=== PATIENT | male | born 1960 | race Two or more races ===

== ENCOUNTER 2020-02-27 03:10 | Inpatient (IN) | payer MEDICARE ==
[2020-02-27] VITALS (25 sets, daily range): BP systolic 84–164; BP diastolic 31–142
[~2020-02-27] VITALS: Ht 165.1 cm; Wt 68.0 kg
--- NOTE | 2020-02-27 03:25 | Emergency Room Report ---
History of Present Illness General Chief Complaint: Dyspnea/Respdistress Source: Medical Record, EMS Present Illness HPI Patient is a 59-year-old male brought in by EMS for increased respiratory distress and difficulty with breathing. Prior history of G-tube dependence as well as recent sepsis. Patient was noted to have fever up to 104 degrees and diminished oxygen saturation at his facility. Patient was sent in from [facility]. He had been started on nonrebreather by paramedics. Previous history of psychiatric disease and had been taking Depakote. Currently on antibiotics. Allergies: Coded Allergies: DIPHENHYDRAMINE (Verified Allergy, Unknown, 02/27/20) COVID-19 Screening Contact w/high risk pt: Yes Recent Travel to affected area: No Experienced COVID-19 symptoms?: Yes COVID-19 symptoms experienced: Fever (T>100.4F or >38C), Shortness of Breath, Cough COVID-19 Testing performed ASSISTANT PROFESSOR OF GERMAN: No Patient History Past Medical History: see triage record Reviewed Nursing Documentation: PMH: Agreed; PSxH: Agreed Nursing Documentation-PMH Past Medical History: No History, Except For History Of Psychiatric Problem: Yes Review of Systems All Other Systems: limited - Limited by poor historian Physical Exam Vital Signs Date Time Temp Pulse Resp B/P (MAP) Pulse Ox O2 Delivery O2 Flow Rate FiO2 02/27/20 03:12 104.0 160 30 89/41 (57) 85 Room Air Sp02 EP Interpretation: reviewed, normal General Appearance: alert, moderate distress, Chronically Ill Head: atraumatic ENT: normal ENT inspection, dry mucus membranes Neck: normal inspection, supple, no bony tend, limited range of motion Respiratory: normal inspection, no respiratory distress, no retraction, crackles Cardiovascular #1: no edema, tachycardia Gastrointestinal: normal inspection, normal bowel sounds, non tender, soft, no guarding, no hernia, other - gtube Genitourinary: no CVA tenderness Musculoskeletal: normal inspection, back normal, normal range of motion Neurologic: alert, 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 Total critical care time excluding procedures approximately 45 minutes. Medical Decision Making Diagnostic Impression: Primary Impression: Suspected 2019 novel coronavirus infection Additional Impressions: Pneumonia Elevated d-dimer Severe sepsis Hematuria Attention to G-tube ER Course Presented for respiratory distress. Differential diagnosis include was not limited to sepsis, pneumonia, supraventricular tachycardia, myocardial infarction among others. Because of complexity of patient's case laboratory tests and imaging studies were ordered. Patient was seen by me on arrival. He was started on supplemental oxygen. Temperature was noted to be elevated at 104 degrees initially. Tachycardia 170 bpm. Appears to be sinus tachycardia. EKG was ordered and patient was started on IV fluids as well as IV antibiotics. Patient's initial oxygen saturation was noted to be diminished however . Patient was somewhat hypoxic however oxygen saturation remained adequate on nonrebreather. Patient d-dimer is markedly elevated and patient will be empirically anticoagulated due to possible coronavirus infection.Patient was given Ativan for some anxiousness. Patient's tachycardia had some improvement after IV fluids.Patient had initial hypotension which responded to IV fluids and patient was noted to be normotensive after fluid bolus. Patient's initial troponin was noted to be slightly elevated with patient's tachycardia. Dr. Marky Go was contacted for inpatient management Labs Test 02/27/20 03:18 02/27/20 03:55 Arterial Blood pH 7.324 (7.350-7.450) Arterial Blood Partial Pressure CO2 36.5 mmHg (35.0-45.0) Arterial Blood Partial Pressure O2 154.9 mmHg (75.0-100.0) Arterial Blood HCO3 18.6 mmol/L (22.0-26.0) Arterial Blood Oxygen Saturation 98.3 % (95-100) Arterial Blood Base Excess -6.8 (-2-2) Nicolas Test Positive White Blood Count 6.1 K/UL (4.8-10.8) Red Blood Count 4.12 M/UL (4.70-6.10) Hemoglobin 13.1 G/DL (14.2-18.0) Hematocrit 37.9 % (42.0-52.0) Mean Corpuscular Volume 92 FL (80-99) Mean Corpuscular Hemoglobin 31.9 PG (27.0-31.0) Mean Corpuscular Hemoglobin Concent 34.7 G/DL (32.0-36.0) Red Cell Distribution Width 11.6 % (11.6-14.8) Platelet Count 221 K/UL (150-450) Mean Platelet Volume 7.5 FL (6.5-10.1) Neutrophils (%) (Auto) 62.3 % (45.0-75.0) Lymphocytes (%) (Auto) 24.5 % (20.0-45.0) Monocytes (%) (Auto) 12.0 % (1.0-10.0) Eosinophils (%) (Auto) 0.1 % (0.0-3.0) Basophils (%) (Auto) 1.1 % (0.0-2.0) D-Dimer 9.14 mg/L FEU (0.00-0.49) Urine Color Pale yellow Urine Appearance Clear Urine pH 6.5 (4.5-8.0) Urine Specific [place] 1.015 (1.005-1.035) Urine Protein 2+ (NEGATIVE) Urine Glucose (UA) Negative (NEGATIVE) Urine Ketones 1+ (NEGATIVE) Urine Blood 4+ (NEGATIVE) Urine Nitrite Negative (NEGATIVE) Urine Bilirubin Negative (NEGATIVE) Urine Urobilinogen Normal MG/DL (0.0-1.0) Urine Leukocyte Esterase Negative (NEGATIVE) Urine RBC Tntc /HPF (0 - 0) Urine WBC 0-2 /HPF (0 - 0) Urine Squamous Epithelial Cells None /LPF (NONE/OCC) Urine Bacteria Few /HPF (NONE) Sodium Level 142 MMOL/L (136-145) Potassium Level 4.0 MMOL/L (3.5-5.1) Chloride Level 105 MMOL/L (98-107) Carbon Dioxide Level 24 MMOL/L (21-32) Anion Gap 13 mmol/L (5-15) Blood Urea Nitrogen 12 mg/dL (7-18) Creatinine 1.2 MG/DL (0.55-1.30) Estimat Glomerular Filtration Rate > 60 mL/min (>60) Glucose Level 117 MG/DL (74-106) Lactic Acid Level 5.70 mmol/L (0.4-2.0) Calcium Level 8.6 MG/DL (8.5-10.1) Total Bilirubin 0.3 MG/DL (0.2-1.0) Aspartate Amino Transf (AST/SGOT) 16 U/L (15-37) Alanine Aminotransferase (ALT/SGPT) 36 U/L (12-78) Alkaline Phosphatase 82 U/L (46-116) Total Creatine Kinase 44 U/L (26-308) Creatine Kinase MB 0.5 NG/ML (0.0-3.6) Creatine Kinase MB Relative Index 1.1 Troponin I 0.227 ng/mL (0.000-0.056) Pro-B-Type Natriuretic Peptide 321 pg/mL (0-125) Total Protein 6.7 G/DL (6.4-8.2) Albumin 2.6 G/DL (3.4-5.0) Globulin 4.1 g/dL Albumin/Globulin Ratio 0.6 (1.0-2.7) EKG Diagnostic Results Rate: tachycardiac Rhythm: NSR ST Segments: no acute changes Last Vital Signs Date Time Temp Pulse Resp B/P (MAP) Pulse Ox O2 Delivery O2 Flow Rate FiO2 02/27/20 03:12 104.0 160 30 89/41 (57) 85 Room Air Status: unchanged Disposition: ADMITTED INPATIENT Condition: Critical Edgardo Nevarez MD February 27, 2020 03:25
--- NOTE | 2020-02-27 03:28 | NUR ---
Spoke with Judith at [facility] regarding testing for Covid19, Judith will review the chart and call me back.
[2020-02-27] MEDS ORDERED: Cefepime HCl 2 GM in NS 110 ML IV ONE (03:30)
[2020-02-27] MEDS ORDERED: Vancomycin 1 GM in NS 275 ML IV ONE (03:30)
[2020-02-27] MEDS ORDERED: Acetaminophen 650mg/20.3ml GT ONE (03:30)
--- NOTE | 2020-02-27 03:30 | NUR ---
ED Nurse Note: Pt brought into ED by TERESA SIMON 29 for c/o fever, respiratory distress, and decreased altered mental status from [facility]. Pt is awake, opening eyes and nonverbal at this time. Pt oxygen saturation was 80s. Pt placed on non- breather mask 15L, saturation is now 93%. Pt presents in the ED tachycardia and has agonal breathing. G-tube is located on lower abs, mcgee changed due to leakage. Pressure ulcer on sacrum and redness on uopeer inner thigh noted and picures were taken. Pt presented BM. Attached quality assurance monitor. ERMD at bedside. All safety masures are met: side rails up, the bed is the lowerst position. Continue to monitor.
[2020-02-27] MEDS ORDERED: FOLIC ACID1 MG GT (03:45)
[2020-02-27] MEDS ORDERED: LEVETIRACETAM750 MG GT (03:45)
[2020-02-27] MEDS ORDERED: ASPIRIN81 MG GT (03:48)
[2020-02-27] MEDS ORDERED: ATIVAN1 MG GT (03:49)
--- NOTE | 2020-02-27 03:55 | NUR ---
ED Nurse Note: mcgee noted; inserted prior to arrival; intact and patent. left upper arm picc noted; established prior to arrival. iv access established on left ej 18g. blood, initial lactic, blood cultures, urine, mrsa vre cre swab collected; sent down to lab. unable to collect covid swab; unavailable stock. ekg done at bedside.
[2020-02-27] MEDS ORDERED: TRAMADOL HCL50 MG GT (04:02)
[2020-02-27] MEDS ORDERED: VALPROIC A250 MG/5 M GT (04:02)
[2020-02-27] MEDS ORDERED: MULTIVITAMINS1 EAC8 GT (04:02)
[2020-02-27] MEDS ORDERED: VITAMIN B-1100 MG GT (04:02)
[2020-02-27] MEDS ORDERED: RISPERDAL0.5 MG GT (04:02)
[2020-02-27] MEDS ORDERED: VANCOMYCIN HCL125 MG GT (04:02)
[2020-02-27] MEDS ORDERED: ACETAMINOPHEN325 M1 GT ×2 (04:02)
[2020-02-27] MEDS ORDERED: PRO-AMATINE10 MG GT (04:02)
[2020-02-27] MEDS ORDERED: VITAMIN C500 M1 GT (04:02)
[2020-02-27] MEDS ORDERED: ZOSYN 3.373.375 GM/1 IVPB (04:07)
[2020-02-27] MEDS ORDERED: ZOLPIDEM TARTRAT5 MG GT (04:07)
[2020-02-27] MEDS ORDERED: ZINC-220220 MG GT (04:07)
[2020-02-27 04:11] LABS: BASOPHILS % (AUTO) 1.1 % (0.0-2.0); EOSINOPHILS % (AUTO) 0.1 % (0.0-3.0); HEMATOCRIT 37.9 % (42.0-52.0); HEMOGLOBIN 13.1 G/DL (14.2-18.0); LYMPHOCYTES % (AUTO) 24.5 % (20.0-45.0); MEAN CORPUSCULAR VOLUME 92 FL (80-99); NEUTROPHILS % (AUTO) 62.3 % (45.0-75.0); PLATELET COUNT 221 K/UL (150-450); RED BLOOD COUNT 4.12 M/UL (4.70-6.10); RED CELL DISTRIBUTION WIDTH 11.6 % (11.6-14.8); WHITE BLOOD COUNT 6.1 K/UL (4.8-10.8)
[2020-02-27] MEDS ORDERED: JEVITY 1.2 CA1500 ML PO (04:11)
[2020-02-27] MEDS ORDERED: LORazepam Inj 2mg/ml 1ml ONE (04:20)
--- NOTE | 2020-02-27 04:20 | NUR ---
ED Nurse Note: received patient from mitali chaudhary. patient in bed; opens eyes spontaneously; tracks movements; withdraws to pain; lacks purposeful movement. sinus tach at 140's. respirations tachypneic 30's; agonal breathing. NRB 15lpm in place with spo2 100's. GT noted; flushed and patent. mcgee intact and patent; draining well to gravity. right upper arm picc noted; intact and patent; fluids infusing as prescribed. left ej 18 intact and patent; free from signs and symptoms of infection; vanco infusing as prescribed. sacral and scrotal redness noted. wound care photos taken and uploaded. RT at bedside for abg. COVID swab collected; sent down to lab. attached armband. droplet precautions observed. all safety measures met; side rails raised; bed locked at lowest position. will continue to monitor closely.
[2020-02-27] MEDS ORDERED: LORazepam Inj 2mg/ml 1ml IV ONE (04:30)
[2020-02-27 04:31] LABS: APPEARANCE,URINE CLEAR; BILIRUBIN, URINE NEGATIVE (NEGATIVE); COLOR,URINE PALE YELLOW; GLUCOSE, URINE (UA) NEGATIVE (NEGATIVE); KETONES,URINE 1+ (NEGATIVE); LEUKOCYTE ESTERASE ,URINE NEGATIVE (NEGATIVE); NITRITE,URINE NEGATIVE (NEGATIVE); PH,URINE 6.5 (4.5-8.0); PROTEIN,URINE 2+ (NEGATIVE); UROBILINOGEN,URINE NORMAL MG/DL (0.0-1.0)
[2020-02-27 04:39] LABS: ANION GAP 13 mmol/L (5-15); BLOOD UREA NITROGEN 12 mg/dL (7-18); CALCIUM 8.6 MG/DL (8.5-10.1); CARBON DIOXIDE 24 MMOL/L (21-32); CHLORIDE 105 MMOL/L (98-107); CREATININE 1.2 MG/DL (0.55-1.30); SODIUM 142 MMOL/L (136-145)
[2020-02-27 04:51] LABS: ALANINE AMINOTRANSFERASE 36 U/L (12-78); ALBUMIN 2.6 G/DL (3.4-5.0); ALBUMIN/GLOBULIN RATIO 0.6 (1.0-2.7); ALKALINE PHOSPHATASE 82 U/L (46-116); ASPARTATE AMINO TRANSFERASE 16 U/L (15-37); BILIRUBIN,TOTAL 0.3 MG/DL (0.2-1.0); CKMB 0.5 NG/ML (0.0-3.6); CREATINE KINASE 44 U/L (26-308)
[2020-02-27] MEDS ORDERED: Enoxaparin 80mg Inj SUBQ SCH ×2 (05:00→21:00)
--- NOTE | 2020-02-27 05:35 | NUR ---
TRANSFER TO FLOOR: Patient transferred to ICU 246-L as ordered, per MD Donavan. Report given to ASAD Justin. Pt was stable for transfer acompanied with 1 tech and 2 RNs. Droplet trasport precaution observed. Pt's belongings and admission packet were sent with pt.
--- NOTE | 2020-02-27 06:00 | NUR ---
NURSE NOTES: received patient from mitali chaudhary. patient in bed; opens eyes spontaneously; tracks movements; withdraws to pain; lacks purposeful movement. sinus tach at 140's. respirations tachypneic 30's; NRB 15lpm in place with spo2 100's. GT noted; flushed and patent. mcgee intact and patent came in with mcgee from [facility], changed Mcgee in ER.; draining well to gravity. right upper arm picc noted from [facility]; intact and patent; NS TKO left ej 18 intact and patent NS TKO; free from signs and symptoms of infection; vanco infusing as prescribed. sacral and scrotal redness noted. wound care photos taken and uploaded. . COVID swab collected in ER; sent down to lab. attached armband. droplet precautions observed. all safety measures met; side rails raised; bed locked at lowest position. will continue to monitor closely.
[2020-02-27] MEDS ORDERED: Midodrine 10mg tab ORAL PRN (06:30)
--- NOTE | 2020-02-27 06:30 | NUR ---
NURSE NOTES: Admission ordered received from Dr. Go
--- NOTE | 2020-02-27 06:40 | NUR ---
NURSE NOTES: Wound care assessment performed.
--- NOTE | 2020-02-27 06:50 | NUR ---
NURSE NOTES: RT at bedside performing ABG. Patient on Non-rebreather
--- NOTE | 2020-02-27 07:00 | NUR ---
NURSE NOTES: Report received from ASAD Justin. Pt opens eyes and moans to pain. Unable to follow commands and to talk. On non-rebreather 100%. O2 sat 100%. Breathing is deep and tachy. Sinus tachy on fish cleaner. GT in place and kept NPO as per order. Vargas in place draining to gravity. FARIDEH PICC patent and asymptomatic. Left EJ G18 patent and asymptomatic. Pt is on D5 1/2NS at 75cc/hr. Bed in lowest position. Side rails up x3. Will resume plan of care.
[2020-02-27] MEDS ORDERED: Albuterol/Ipratropium 3ml neb HHN PRN (08:00)
[2020-02-27] MEDS ORDERED: Miralax 17gm pkt ORAL PRN (08:00)
[2020-02-27] MEDS ORDERED: Promethazine/Codeine 5ml UD ORAL PRN (08:00)
[2020-02-27] MEDS ORDERED: Nitroglycerin Subl 0.4mg tab SL PRN (08:00)
[2020-02-27] MEDS ORDERED: D5 1/2NS 1,000 ML IV ONE (08:00)
[2020-02-27] MEDS ORDERED: Ascorbic Acid 500mg tab ORAL SCH (09:00)
[2020-02-27] MEDS ORDERED: Vitamin D 1000 IU Tab ORAL SCH (09:00)
[2020-02-27] MEDS ORDERED: Aspirin Baby 81mg NG SCH (09:00)
[2020-02-27] MEDS ORDERED: Zinc Sulfate 220mg cap ORAL SCH (09:00)
[2020-02-27] MEDS ORDERED: Thiamine 100mg tab ORAL SCH (09:00)
--- NOTE | 2020-02-27 09:00 | NUR ---
NURSE NOTES: Temp 99.4 axillary. Turned and repositioned pt. Oral care done. Wound picture taken and uploaded. Will continue to monitor.
[2020-02-27] MEDS: Azithromycin 500 MG in D5W 275 ML IV SCH (09:01)
[2020-02-27] MEDS: Valproic Acid 250mg/5ml Liquid NG SCH ×2 (09:02→17:38)
[2020-02-27] MEDS: levETIRAcetam 500mg/5ml Liquid NG SCH ×2 (09:02→21:00)
[2020-02-27] MEDS: Enoxaparin 40mg Inj SUBQ SCH (11:04)
--- NOTE | 2020-02-27 11:39 | Consultation ---
History of Present Illness General Date patient seen: February 27, 2020 Chief Complaint: Dyspnea/Respdistress Present Illness HPI 59 year old make with hx of muscle weakness and atrophy, not characterized, residential resident, Gtube feeding brought in by paramedics b/o acute onset of dyspnea and fever. Pt's temperature was 104 in ER. He was put on NRM with Fio2 of 100%, which led to improvement in pulse oximeter. Pt is transferred to ICU for further treatment. Pt is unresponsive. [place] [facility] [place] no other information is available. He was recently transferred from [facility] to [facility] Allergies: Coded Allergies: DIPHENHYDRAMINE (Verified Allergy, Unknown, 02/27/20) Medication History Scheduled Ascorbic Acid* (Vitamin C*), 1,000 MG GT DAILY, (Reported) Aspirin* (Aspirin*), 81 MG GT DAILY, (Reported) Folic Acid* (Folic Acid*), 1 MG GT DAILY, (Reported) Lactose-Reduced Food/Fiber (Jevity 1.2 Memo Liquid), 1,500 ML PO BID, (Reported) Levetiracetam (Levetiracetam), 750 MG GT TWICE A DAY, (Reported) Lorazepam* (Ativan*), 1 MG GT Q6HR, (Reported) Midodrine (Midodrine HCl), 10 MG GT Q8HR, (Reported) Multivitamin With Minerals (Multivitamins With Minerals*), 1 TAB GT DAILY, ( Reported) Jrbltfnseimj-Abwx-Sslneqtw,Iso (Zosyn 3.375 Gm Pre Mix-Bag), 3.375 GM IVPB EVERY 8 HOURS, (Reported) Risperidone* (Risperdal*), 0.5 MG GT DAILY, (Reported) Thiamine Hcl* (Vitamin B-1*), 100 MG GT Q12HR, (Reported) Valproate Sodium (Valproic Acid), 250 MG GT Q6HR, (Reported) Vancomycin Hcl (Vancomycin Hcl), 1,000 MG GT Q12HR, (Reported) Zinc Sulfate (Zinc-220*), 220 MG GT DAILY, (Reported) Scheduled PRN Acetaminophen* (Acetaminophen 325MG Tablet*), 325 MG GT Q8HR PRN for For Pain, ( Reported) Acetaminophen* (Acetaminophen 325MG Tablet*), 650 MG GT Q4HR PRN for TEMP > 100.4nte 3gm IN 24HRS, (Reported) Tramadol Hcl* (Ultram*), 50 MG GT Q8HR PRN for For Pain, (Reported) Zolpidem Tartrate* (Zolpidem Tartrate*), 5 MG GT BEDTIME PRN for Insomnia, ( Reported) Patient History Healthcare decision maker Resuscitation status Advanced Directive on File Past Medical/Surgical History Past Medical/Surgical History: (1) Attention to G-tube (2) Muscle wasting and atrophy, not elsewhere classified, multiple sites (3) long term resident Review of Systems All Other Systems: negative except mentioned in HPI Physical Exam General Appearance: WD/WN Lines, tubes and drains: peripheral HEENT: normocephalic, atraumatic Neck: non-tender, normal alignment Respiratory/Chest: rhonchi - left, rhonchi - right Cardiovascular/Chest: normal peripheral pulses, normal rate Abdomen: normal bowel sounds, feeding tube Genitourinary/Rectal: normal genital exam Extremities: normal range of motion, non-tender Last 24 Hour Vital Signs Date Time Temp Pulse Resp B/P (MAP) Pulse Ox O2 Delivery O2 Flow Rate FiO2 02/27/20 11:00 131 30 103/60 (74) 100 02/27/20 10:00 130 37 115/69 (84) 100 02/27/20 09:00 136 34 89/62 (71) 100 02/27/20 08:00 99.4 135 28 88/69 (75) 99 02/27/20 08:00 15.0 02/27/20 08:00 Non-Rebreather 15.0 02/27/20 07:00 136 30 84/47 (59) 100 02/27/20 06:55 100 Non-Rebreather 15.0 100 02/27/20 06:06 Non-Rebreather 15.0 02/27/20 06:00 100.0 150 32 164/142 (149) 93 02/27/20 06:00 143 02/27/20 05:35 99.4 133 27 121/50 98 Non-Rebreather 15.0 02/27/20 05:00 99.4 133 27 121/50 98 Non-Rebreather 15.0 02/27/20 04:30 131 31 121/50 98 Non-Rebreather 15.0 02/27/20 04:02 99.9 02/27/20 04:00 141 31 113/71 98 Non-Rebreather 15.0 02/27/20 03:15 160 31 Non-Rebreather 15.0 02/27/20 03:15 102.7 158 31 137/81 99 Non-Rebreather 15.0 02/27/20 03:12 104.0 160 30 89/41 (57) 85 Room Air Intake and Output 02/26/20 02/27/20 19:00 07:00 Intake Total 0 ml Output Total 80 ml Balance -80 ml Intake Oral 0 ml Output Urine Total 80 ml # Bowel Movements 1 Laboratory Tests Test 02/27/20 03:18 02/27/20 03:55 02/27/20 05:20 02/27/20 06:33 Arterial Blood pH 7.324 (7.350-7.450) 7.349 (7.350-7.450) Arterial Blood Partial Pressure CO2 36.5 mmHg (35.0-45.0) 35.9 mmHg (35.0-45.0) Arterial Blood Partial Pressure O2 154.9 mmHg (75.0-100.0) H 58.0 mmHg (75.0-100.0) L Arterial Blood HCO3 18.6 mmol/L (22.0-26.0) L 19.3 mmol/L (22.0-26.0) L Arterial Blood Oxygen Saturation 98.3 % (95-100) 87.4 % (95-100) *L Arterial Blood Base Excess -6.8 (-2-2) L -5.6 (-2-2) L Nicolas Test Positive Positive White Blood Count 6.1 K/UL (4.8-10.8) Red Blood Count 4.12 M/UL (4.70-6.10) L Hemoglobin 13.1 G/DL (14.2-18.0) L Hematocrit 37.9 % (42.0-52.0) L Mean Corpuscular Volume 92 FL (80-99) Mean Corpuscular Hemoglobin 31.9 PG (27.0-31.0) H Mean Corpuscular Hemoglobin Concent 34.7 G/DL (32.0-36.0) Red Cell Distribution Width 11.6 % (11.6-14.8) Platelet Count 221 K/UL (150-450) Mean Platelet Volume 7.5 FL (6.5-10.1) Neutrophils (%) (Auto) 62.3 % (45.0-75.0) Lymphocytes (%) (Auto) 24.5 % (20.0-45.0) Monocytes (%) (Auto) 12.0 % (1.0-10.0) H Eosinophils (%) (Auto) 0.1 % (0.0-3.0) Basophils (%) (Auto) 1.1 % (0.0-2.0) D-Dimer 9.14 mg/L FEU (0.00-0.49) H Urine Color Pale yellow Urine Appearance Clear Urine pH 6.5 (4.5-8.0) Urine Specific [place] 1.015 (1.005-1.035) Urine Protein 2+ (NEGATIVE) H Urine Glucose (UA) Negative (NEGATIVE) Urine Ketones 1+ (NEGATIVE) H Urine Blood 4+ (NEGATIVE) H Urine Nitrite Negative (NEGATIVE) Urine Bilirubin Negative (NEGATIVE) Urine Urobilinogen Normal MG/DL (0.0-1.0) Urine Leukocyte Esterase Negative (NEGATIVE) Urine RBC Tntc /HPF (0 - 0) H Urine WBC 0-2 /HPF (0 - 0) Urine Squamous Epithelial Cells None /LPF (NONE/OCC) Urine Bacteria Few /HPF (NONE) Sodium Level 142 MMOL/L (136-145) Potassium Level 4.0 MMOL/L (3.5-5.1) Chloride Level 105 MMOL/L (98-107) Carbon Dioxide Level 24 MMOL/L (21-32) Anion Gap 13 mmol/L (5-15) Blood Urea Nitrogen 12 mg/dL (7-18) Creatinine 1.2 MG/DL (0.55-1.30) Estimat Glomerular Filtration Rate > 60 mL/min (>60) Glucose Level 117 MG/DL (74-106) H Lactic Acid Level 5.70 mmol/L (0.4-2.0) H 2.70 mmol/L (0.66-2.22) H Calcium Level 8.6 MG/DL (8.5-10.1) Ferritin 295 NG/ML (8-388) Total Bilirubin 0.3 MG/DL (0.2-1.0) Aspartate Amino Transf (AST/SGOT) 16 U/L (15-37) Alanine Aminotransferase (ALT/SGPT) 36 U/L (12-78) Alkaline Phosphatase 82 U/L (46-116) Total Creatine Kinase 44 U/L (26-308) Creatine Kinase MB 0.5 NG/ML (0.0-3.6) Creatine Kinase MB Relative Index 1.1 Troponin I 0.227 ng/mL (0.000-0.056) C-Reactive Protein, Quantitative 3.0 mg/dL (0.00-0.90) H Pro-B-Type Natriuretic Peptide 321 pg/mL (0-125) H Total Protein 6.7 G/DL (6.4-8.2) Albumin 2.6 G/DL (3.4-5.0) L Globulin 4.1 g/dL Albumin/Globulin Ratio 0.6 (1.0-2.7) L Height (Feet): 5 Height (Inches): 5.00 Weight (Pounds): 150 Medications Current Medications Medications (Trade) Dose Ordered Sig/Damion Route PRN Reason Start Time Stop Time Status Last Admin Dose Admin Acetaminophen (Tylenol) 650 mg Q4H PRN NG Temp >100.5 02/27/20 06:30 03/28/20 06:29 Acetaminophen (Tylenol) 650 mg Q4H PRN ORAL fever 02/27/20 08:00 03/28/20 07:59 Albuterol/ Ipratropium (Albuterol/ Ipratropium) 3 ml Q4H PRN HHN Shortness of Breath 02/27/20 08:00 03/03/20 07:59 Azithromycin 500 mg/Dextrose 275 ml @ 275 mls/hr Q24HRS IV 02/27/20 08:00 03/02/20 08:59 02/27/20 09:01 Chlorhexidine Gluconate (Marci-Hex 2%) 1 applic DAILY@2000 TOPIC 02/27/20 20:00 05/27/20 19:59 Dextrose/Sodium Chloride 1,000 ml @ 50 mls/hr Q20H IV 02/27/20 21:00 03/28/20 20:59 Dextrose/Sodium Chloride 1,000 ml @ 75 mls/hr [id number] ONCE IV 02/27/20 08:00 02/27/20 21:19 02/27/20 09:01 Enoxaparin Sodium (Lovenox) 40 mg DAILY SUBQ 02/27/20 09:00 05/27/20 08:59 02/27/20 11:04 Levetiracetam (Keppra) 700 mg Q12HR NG 02/27/20 09:00 03/28/20 08:59 02/27/20 09:02 Midodrine (Pro-Amatine) 10 mg Q8H PRN ORAL SBP <95 02/27/20 06:30 05/27/20 06:29 Nitroglycerin (Ntg) 0.4 mg Q5M PRN SL Prn Chest Pain 02/27/20 08:00 03/28/20 07:59 Ondansetron HCl (Zofran) 4 mg Q6H PRN IVP Nausea & Vomiting 02/27/20 08:00 03/28/20 07:59 Piperacillin Sod/ Tazobactam Sod 3.375 gm/Sodium Chloride 110 ml @ 27.5 mls/hr EVERY 8 HOURS IVPB 02/27/20 14:00 03/03/20 13:59 Polyethylene Glycol (Miralax) 17 gm DAILYPRN PRN ORAL Constipation 02/27/20 08:00 03/28/20 07:59 Promethazine HCl/ Codeine (Phenergan with Codeine) 5 ml Q4H PRN ORAL For Cough 02/27/20 08:00 03/28/20 07:59 Risperidone (RisperDAL) 0.5 mg BIDPRN PRN ORAL mood/psychosis 02/27/20 10:30 04/12/20 06:29 Valproic Acid (Depakene) 250 mg BID NG 02/27/20 09:00 03/28/20 08:59 02/27/20 09:02 Vancomycin HCl (Vanco rx to dose) 1 ea DAILY PRN MISC Per rx protocol 02/27/20 06:30 03/28/20 06:29 Vancomycin HCl 750 mg/Sodium Chloride 275 ml @ 183.333 mls/hr Q12H IVPB 02/27/20 16:00 03/03/20 15:59 Vitamin D (Vitamin D) 5,000 intlu QWEEK ORAL 02/27/20 09:00 03/28/20 08:59 02/27/20 09:04 Assessment/Plan Problem List: (1) Acute respiratory failure ICD Codes: J96.00 - Acute respiratory failure, unspecified whether with hypoxia or hypercapnia SNOMED: 59123676 (2) Nosocomial pneumonia ICD Codes: J18.9 - Pneumonia, unspecified organism; Y95 - Nosocomial condition SNOMED: 725874472 (3) Severe sepsis ICD Codes: A41.9 - Sepsis, unspecified organism; R65.20 - Severe sepsis without septic shock SNOMED: 96756253 (4) Attention to G-tube ICD Codes: Z43.1 - Encounter for attention to gastrostomy; R65.20 - Severe sepsis without septic shock SNOMED: 320942013, 013753350, 604063633 (5) Suspected 2019 novel coronavirus infection ICD Codes: Z20.828 - Contact with and (suspected) exposure to other viral communicable diseases SNOMED: 314799492 (6) Muscle wasting and atrophy, not elsewhere classified, multiple sites ICD Codes: M62.59 - Muscle wasting and atrophy, not elsewhere classified, multiple sites SNOMED: 85247203 Respiratory: monitor respiratory rate, adjust FIO2, CXR, ABG Cardiac: stop pressors, continue to monitor HR/BP Renal: keep IV fluid Infectious Disease: check cultures Gastrointestinal: hold feedings Endocrine: monitor blood sugar Hematologic: monitor H/H, transfuse if hgb<8.5 Neurologic: PRN Ativan, PRN Morphine, keep patient comfortable Disposition: keep in ICU Time Spent (Minutes): 40 Discussed with: nurses, consultants - Dr. Arzate and Dr. Ellison called, shoe caser Ana Maria Hansen MD February 27, 2020 11:39
--- NOTE | 2020-02-27 12:25 | Consultation ---
History of Present Illness General Date patient seen: February 27, 2020 Chief Complaint: Dyspnea/Respdistress Present Illness HPI 59 y/o M with hx of muscle weakness and atrophy (not characterized), psychiatric disorder, dysphagia s/p GT, [place] resident (recently transferred from [place] to [facility]) presented to ED on 02/26 with acute onset of dyspnea and fever. In the ED T up to 104, hypoxic needing placement of NRB. Patient was unresponsive and was transferred to ICU. at the half-way was on Vancomycin and Zosyn Allergies: Coded Allergies: DIPHENHYDRAMINE (Verified Allergy, Unknown, 02/27/20) Medication History Scheduled Ascorbic Acid* (Vitamin C*), 1,000 MG GT DAILY, (Reported) Aspirin* (Aspirin*), 81 MG GT DAILY, (Reported) Folic Acid* (Folic Acid*), 1 MG GT DAILY, (Reported) Lactose-Reduced Food/Fiber (Jevity 1.2 Memo Liquid), 1,500 ML PO BID, (Reported) Levetiracetam (Levetiracetam), 750 MG GT TWICE A DAY, (Reported) Lorazepam* (Ativan*), 1 MG GT Q6HR, (Reported) Midodrine (Midodrine HCl), 10 MG GT Q8HR, (Reported) Multivitamin With Minerals (Multivitamins With Minerals*), 1 TAB GT DAILY, ( Reported) Pdyokifyaohi-Ynij-Xkadmmia,Iso (Zosyn 3.375 Gm Pre Mix-Bag), 3.375 GM IVPB EVERY 8 HOURS, (Reported) Risperidone* (Risperdal*), 0.5 MG GT DAILY, (Reported) Thiamine Hcl* (Vitamin B-1*), 100 MG GT Q12HR, (Reported) Valproate Sodium (Valproic Acid), 250 MG GT Q6HR, (Reported) Vancomycin Hcl (Vancomycin Hcl), 1,000 MG GT Q12HR, (Reported) Zinc Sulfate (Zinc-220*), 220 MG GT DAILY, (Reported) Scheduled PRN Acetaminophen* (Acetaminophen 325MG Tablet*), 325 MG GT Q8HR PRN for For Pain, ( Reported) Acetaminophen* (Acetaminophen 325MG Tablet*), 650 MG GT Q4HR PRN for TEMP > 100.4nte 3gm IN 24HRS, (Reported) Tramadol Hcl* (Ultram*), 50 MG GT Q8HR PRN for For Pain, (Reported) Zolpidem Tartrate* (Zolpidem Tartrate*), 5 MG GT BEDTIME PRN for Insomnia, ( Reported) Patient History Healthcare decision maker Resuscitation status Advanced Directive on File Patient History Narrative Pmhx: as above SHx: reviewed Fhx: non contributory Physical Exam Physical Exam Narrative General Appearance: WD/WN Lines, tubes and drains: peripheral HEENT: normocephalic, atraumatic Neck: non-tender, normal alignment Respiratory/Chest: rhonchi - left, rhonchi - right Cardiovascular/Chest: normal peripheral pulses, normal rate Abdomen: normal bowel sounds, feeding tube Genitourinary/Rectal: normal genital exam Extremities: normal range of motion, non-tender Last 24 Hour Vital Signs Date Time Temp Pulse Resp B/P (MAP) Pulse Ox O2 Delivery O2 Flow Rate FiO2 02/27/20 11:00 131 30 103/60 (74) 100 02/27/20 10:00 130 37 115/69 (84) 100 02/27/20 09:00 136 34 89/62 (71) 100 02/27/20 08:00 99.4 135 28 88/69 (75) 99 02/27/20 08:00 15.0 02/27/20 08:00 Non-Rebreather 15.0 02/27/20 07:00 136 30 84/47 (59) 100 02/27/20 06:55 100 Non-Rebreather 15.0 100 02/27/20 06:06 Non-Rebreather 15.0 02/27/20 06:00 100.0 150 32 164/142 (149) 93 02/27/20 06:00 143 02/27/20 05:35 99.4 133 27 121/50 98 Non-Rebreather 15.0 02/27/20 05:00 99.4 133 27 121/50 98 Non-Rebreather 15.0 02/27/20 04:30 131 31 121/50 98 Non-Rebreather 15.0 02/27/20 04:02 99.9 02/27/20 04:00 141 31 113/71 98 Non-Rebreather 15.0 02/27/20 03:15 160 31 Non-Rebreather 15.0 02/27/20 03:15 102.7 158 31 137/81 99 Non-Rebreather 15.0 02/27/20 03:12 104.0 160 30 89/41 (57) 85 Room Air Intake and Output 02/26/20 02/27/20 19:00 07:00 Intake Total 0 ml Output Total 80 ml Balance -80 ml Intake Oral 0 ml Output Urine Total 80 ml # Bowel Movements 1 Laboratory Tests Test 02/27/20 03:18 02/27/20 03:55 02/27/20 05:20 02/27/20 06:33 Arterial Blood pH 7.324 (7.350-7.450) 7.349 (7.350-7.450) Arterial Blood Partial Pressure CO2 36.5 mmHg (35.0-45.0) 35.9 mmHg (35.0-45.0) Arterial Blood Partial Pressure O2 154.9 mmHg (75.0-100.0) H 58.0 mmHg (75.0-100.0) L Arterial Blood HCO3 18.6 mmol/L (22.0-26.0) L 19.3 mmol/L (22.0-26.0) L Arterial Blood Oxygen Saturation 98.3 % (95-100) 87.4 % (95-100) *L Arterial Blood Base Excess -6.8 (-2-2) L -5.6 (-2-2) L Nicolas Test Positive Positive White Blood Count 6.1 K/UL (4.8-10.8) Red Blood Count 4.12 M/UL (4.70-6.10) L Hemoglobin 13.1 G/DL (14.2-18.0) L Hematocrit 37.9 % (42.0-52.0) L Mean Corpuscular Volume 92 FL (80-99) Mean Corpuscular Hemoglobin 31.9 PG (27.0-31.0) H Mean Corpuscular Hemoglobin Concent 34.7 G/DL (32.0-36.0) Red Cell Distribution Width 11.6 % (11.6-14.8) Platelet Count 221 K/UL (150-450) Mean Platelet Volume 7.5 FL (6.5-10.1) Neutrophils (%) (Auto) 62.3 % (45.0-75.0) Lymphocytes (%) (Auto) 24.5 % (20.0-45.0) Monocytes (%) (Auto) 12.0 % (1.0-10.0) H Eosinophils (%) (Auto) 0.1 % (0.0-3.0) Basophils (%) (Auto) 1.1 % (0.0-2.0) D-Dimer 9.14 mg/L FEU (0.00-0.49) H Urine Color Pale yellow Urine Appearance Clear Urine pH 6.5 (4.5-8.0) Urine Specific [place] 1.015 (1.005-1.035) Urine Protein 2+ (NEGATIVE) H Urine Glucose (UA) Negative (NEGATIVE) Urine Ketones 1+ (NEGATIVE) H Urine Blood 4+ (NEGATIVE) H Urine Nitrite Negative (NEGATIVE) Urine Bilirubin Negative (NEGATIVE) Urine Urobilinogen Normal MG/DL (0.0-1.0) Urine Leukocyte Esterase Negative (NEGATIVE) Urine RBC Tntc /HPF (0 - 0) H Urine WBC 0-2 /HPF (0 - 0) Urine Squamous Epithelial Cells None /LPF (NONE/OCC) Urine Bacteria Few /HPF (NONE) Sodium Level 142 MMOL/L (136-145) Potassium Level 4.0 MMOL/L (3.5-5.1) Chloride Level 105 MMOL/L (98-107) Carbon Dioxide Level 24 MMOL/L (21-32) Anion Gap 13 mmol/L (5-15) Blood Urea Nitrogen 12 mg/dL (7-18) Creatinine 1.2 MG/DL (0.55-1.30) Estimat Glomerular Filtration Rate > 60 mL/min (>60) Glucose Level 117 MG/DL (74-106) H Lactic Acid Level 5.70 mmol/L (0.4-2.0) H 2.70 mmol/L (0.66-2.22) H Calcium Level 8.6 MG/DL (8.5-10.1) Ferritin 295 NG/ML (8-388) Total Bilirubin 0.3 MG/DL (0.2-1.0) Aspartate Amino Transf (AST/SGOT) 16 U/L (15-37) Alanine Aminotransferase (ALT/SGPT) 36 U/L (12-78) Alkaline Phosphatase 82 U/L (46-116) Total Creatine Kinase 44 U/L (26-308) Creatine Kinase MB 0.5 NG/ML (0.0-3.6) Creatine Kinase MB Relative Index 1.1 Troponin I 0.227 ng/mL (0.000-0.056) C-Reactive Protein, Quantitative 3.0 mg/dL (0.00-0.90) H Pro-B-Type Natriuretic Peptide 321 pg/mL (0-125) H Total Protein 6.7 G/DL (6.4-8.2) Albumin 2.6 G/DL (3.4-5.0) L Globulin 4.1 g/dL Albumin/Globulin Ratio 0.6 (1.0-2.7) L Test 02/27/20 11:50 Lactic Acid Level Pending Troponin I Pending Height (Feet): 5 Height (Inches): 5.00 Weight (Pounds): 150 Medications Current Medications Medications (Trade) Dose Ordered Sig/Damion Route PRN Reason Start Time Stop Time Status Last Admin Dose Admin Acetaminophen (Tylenol) 650 mg Q4H PRN NG Temp >100.5 02/27/20 06:30 03/28/20 06:29 Acetaminophen (Tylenol) 650 mg Q4H PRN ORAL fever 02/27/20 08:00 03/28/20 07:59 Albuterol/ Ipratropium (Albuterol/ Ipratropium) 3 ml Q4H PRN HHN Shortness of Breath 02/27/20 08:00 03/03/20 07:59 Azithromycin 500 mg/Dextrose 275 ml @ 275 mls/hr Q24HRS IV 02/27/20 08:00 03/02/20 08:59 02/27/20 09:01 Chlorhexidine Gluconate (Marci-Hex 2%) 1 applic DAILY@2000 TOPIC 02/27/20 20:00 05/27/20 19:59 Dextrose/Sodium Chloride 1,000 ml @ 50 mls/hr Q20H IV 02/27/20 21:00 03/28/20 20:59 Dextrose/Sodium Chloride 1,000 ml @ 75 mls/hr [id number] ONCE IV 02/27/20 08:00 02/27/20 21:19 02/27/20 09:01 Enoxaparin Sodium (Lovenox) 40 mg DAILY SUBQ 02/27/20 09:00 05/27/20 08:59 02/27/20 11:04 Levetiracetam (Keppra) 700 mg Q12HR NG 02/27/20 09:00 03/28/20 08:59 02/27/20 09:02 Midodrine (Pro-Amatine) 10 mg Q8H PRN ORAL SBP <95 02/27/20 06:30 05/27/20 06:29 Nitroglycerin (Ntg) 0.4 mg Q5M PRN SL Prn Chest Pain 02/27/20 08:00 03/28/20 07:59 Ondansetron HCl (Zofran) 4 mg Q6H PRN IVP Nausea & Vomiting 02/27/20 08:00 03/28/20 07:59 Piperacillin Sod/ Tazobactam Sod 3.375 gm/Sodium Chloride 110 ml @ 27.5 mls/hr EVERY 8 HOURS IVPB 02/27/20 14:00 03/03/20 13:59 Polyethylene Glycol (Miralax) 17 gm DAILYPRN PRN ORAL Constipation 02/27/20 08:00 03/28/20 07:59 Promethazine HCl/ Codeine (Phenergan with Codeine) 5 ml Q4H PRN ORAL For Cough 02/27/20 08:00 03/28/20 07:59 Risperidone (RisperDAL) 0.5 mg BIDPRN PRN ORAL mood/psychosis 02/27/20 10:30 04/12/20 06:29 Valproic Acid (Depakene) 250 mg BID NG 02/27/20 09:00 03/28/20 08:59 02/27/20 09:02 Vancomycin HCl (Vanco rx to dose) 1 ea DAILY PRN MISC Per rx protocol 02/27/20 06:30 03/28/20 06:29 Vancomycin HCl 750 mg/Sodium Chloride 275 ml @ 183.333 mls/hr Q12H IVPB 02/27/20 16:00 03/03/20 15:59 Vitamin D (Vitamin D) 5,000 intlu QWEEK ORAL 02/27/20 09:00 03/28/20 08:59 02/27/20 09:04 Assessment/Plan Assessment/Plan: Abx: Cefepime x1 02/26 Flagyl x1 02/26 IV Vancomycin 02/26- Zosyn 02/26- Azithromycin 02/26- Assessment: Severe Sepsis Acute hypoxic respiratory failure on NRB PNA high suspicion for COVID19 Gram neg bacteremia -CXR: Basilar infiltrates. -Bcx 3/4 GNR Fever No leukocytosis -u/a no pyuria Lactic acidosis, improving Princess intertrigo muscle weakness and atrophy (not characterized) psychiatric disorder dysphagia s/p GT [place] resident (recently transferred from [place] to [facility]) Plan: -Continue empiric IV Vancomycin, and azithromycin #1 for now -Switch Zosyn #1 to Meropenem -f/u cx -Monitor CBC/CMP, temperatures -COVID19 isolation and testing -aspiration precautions -Bcx x2 -Remove PICC line when able Thank you for consulting [facility]. Will continue to follow along wiht you. Charlene Stokes M.D. February 27, 2020 12:25
--- NOTE | 2020-02-27 12:44 | NUR ---
NURSE NOTES:WOUND CARE NOTES:Pt presented on admission with MASD of Suprapubis,Bilat groin scrotum and buttocks. Affected areas are grossly erythematous,macerated with scattered partial thickness wounds R and L gluteal cheeks. Tx.plan> Apply Remedy Antifungal to perineum and buttocks Twice daily. Apply Moisture Barrier Paste to Perineum and buttocks with each incontinence care. Apply Cavilon Skin Barrier to both heels. Cover each heel with Optifoam drsg. Change every 7 days and prn. Reposition at least every 2hours or as tolerated. Off-load heels with Pillow.
--- NOTE | 2020-02-27 13:01 | NUR ---
NURSE NOTES: Pt is on Ventri mask 55%, 14L. O2 sat 100%.
--- NOTE | 2020-02-27 13:56 | NUR ---
NURSE NOTES: PRN Tylenol 650mg given for fever 101.3 orally. Continued cooling measures. Will recheck temp
[2020-02-27] MEDS ORDERED: Piperacillin/Tazobactam 3.375 GM in NS 110 ML IVPB SCH (14:00)
--- NOTE | 2020-02-27 14:23 | NUR ---
EDITOR GREETING CARD NOTE PT is currently PUI. Per chart review, pt is from [address] [address] NIKITA spoke w/ pt's sister, Negar Donnelly [phone] and obtained information. Pt was living w/ her and moved to alf 3 years ago. Per Negar, pt's memory has been significantly deteriorated. Thus, she will be the decision maker for pt. Pt is single, never and has no children. Negar Donnelly is the only family member. Negar also confirmed pt is full code Per Negar, pt's Medi[employer] has been terminated. Pt receives SSA $800/mo. Negar requested to sign up [employer] for pt. NIKITA relayed information to the financial counselor, Jossue and Admitting Vonnie.
[2020-02-27] MEDS: Nystatin Powder 100,000 units/gm 15gm TOPIC SCH ×2 (14:50→17:38)
--- NOTE | 2020-02-27 15:07 | NUR ---
NURSE NOTES: Notified Dr Go and Divya regarding blood culture positive for gram negative rods 3 bottles and elevated temp. Order received, noted, and carried out.
[2020-02-27] MEDS: Vancomycin 750mg/NS 275ml IVPB SCH ×2 (15:16)
--- NOTE | 2020-02-27 16:30 | Diagnostic Imaging Report ---
Procedure: XRAY Chest 1v Reason for study: Reason For Exam: SOB Comparison films: None. FINDINGS: There is a right midline catheter in place. Multiple overlying artifacts noted. Vascularity is normal. There are bibasilar infiltrates left greater than right. Cardiac and mediastinal silhouette are within normal limits. CP angles are sharp. The bony thorax appear unremarkable. IMPRESSION: Basilar infiltrates.
--- NOTE | 2020-02-27 16:45 | NUR ---
CASE MANAGEMENT: INITIAL REVIEW 02/27/2020 59 YO M TOMER FROM [facility] CC: DYSPNEA PMHx: GT, PSYCH (UNK DX) SI:ACUTE RESP FAILURE T 104 HR 160 RR 30 B/P 89/41 SATS 85% ON RA LABS: GLU 117 TROPONIN 0.227 BNP 321 ABGs PH 7.324 PO2 154.9 HCO3 18.6 BE -6.8 IS: VANCO IV X1 NS BOLUS X2 CEFEPIME IV X2 FLAGYL IV X2 TYLENOL GT X1 ATIVAN IV X1 PATIENT ADMITTED TO ICU 02/27/2020 @ 0430 DCP: SNF PLAN OF CARE: -Monitor CBC/CMP, temperatures -COVID19 isolation and testing -aspiration precautions Addendum: 02/27/20 at 1700 by Radha Huntley CM INTERQUAL MET
--- NOTE | 2020-02-27 17:05 | History & Physical ---
History and Physical History & Physicial Marky Go MD February 27, 2020 17:05
[2020-02-27] MEDS: Meropenem 1 GM in NS 55 ML IVPB SCH (17:38)
--- NOTE | 2020-02-27 18:46 | NUR ---
NURSE NOTES: Temp 102.0 axillary. PRN Tylenol 650mg given for fever. Continued cooling measures.
--- NOTE | 2020-02-27 19:00 | NUR ---
HAND-OFF: Report given to ASAD Justin.
--- NOTE | 2020-02-27 19:30 | NUR ---
NURSE NOTES: SBAR from [facility]. Patient is awake, non-verbal, non-comprehensible. Currently on Venturi Mask 14/55% Fio2. SpO2 is 97%. HR is [address] ST. Patient has GT that is patent and clamped. 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 Multiple wounds noted, P200 mattress noted. L EJ 18G NS TKO and D51/2NS at 75ml/hr. Patient currently is on cooling measures for recurrent fevers throughout the day shift. FARIDEH PICC line noted. Will continue to monitor.
--- NOTE | 2020-02-27 19:47 | Cardiology Progress Note ---
Assessment/Plan Assessment/Plan [id number] trop due to demand gnr sepis iv abx watch resptitration Objective Last 24 Hour Vital Signs Date Time Temp Pulse Resp B/P (MAP) Pulse Ox O2 Delivery O2 Flow Rate FiO2 02/27/20 19:00 116 25 98/47 (64) 100 02/27/20 18:00 117 25 99/48 (65) 100 02/27/20 17:00 122 24 98/47 (64) 100 02/27/20 16:00 Venturi Mask 14.0 02/27/20 16:00 14.0 55 02/27/20 16:00 101.3 123 25 109/66 (80) 100 02/27/20 15:41 129 02/27/20 15:30 124 27 115/68 (84) 100 02/27/20 15:00 132 26 93/47 (62) 100 02/27/20 14:26 101.2 02/27/20 14:00 129 26 98/31 (53) 100 02/27/20 13:01 14.0 55 02/27/20 13:00 101.4 140 25 110/58 (75) 100 02/27/20 12:00 Venturi Mask 14.0 02/27/20 12:00 141 34 117/59 (78) 100 02/27/20 11:52 146 02/27/20 11:00 131 30 103/60 (74) 100 02/27/20 10:00 130 37 115/69 (84) 100 02/27/20 09:00 136 34 89/62 (71) 100 02/27/20 08:00 99.4 135 28 88/69 (75) 99 02/27/20 08:00 15.0 02/27/20 08:00 Non-Rebreather 15.0 02/27/20 07:34 134 02/27/20 07:00 136 30 84/47 (59) 100 02/27/20 06:55 100 Non-Rebreather 15.0 100 02/27/20 06:06 Non-Rebreather 15.0 02/27/20 06:00 100.0 150 32 164/142 (149) 93 02/27/20 06:00 143 02/27/20 05:35 99.4 133 27 121/50 98 Non-Rebreather 15.0 02/27/20 05:00 99.4 133 27 121/50 98 Non-Rebreather 15.0 02/27/20 04:30 131 31 121/50 98 Non-Rebreather 15.0 02/27/20 04:02 99.9 02/27/20 04:00 141 31 113/71 98 Non-Rebreather 15.0 02/27/20 03:15 160 31 Non-Rebreather 15.0 02/27/20 03:15 102.7 158 31 137/81 99 Non-Rebreather 15.0 02/27/20 03:12 104.0 160 30 89/41 (57) 85 Room Air Intake and Output 02/26/20 02/27/20 19:00 07:00 Intake Total 0 ml Output Total 80 ml Balance -80 ml Intake Oral 0 ml Output Urine Total 80 ml # Bowel Movements 1 Laboratory Tests Test 02/27/20 03:18 02/27/20 03:55 02/27/20 05:20 02/27/20 06:33 Arterial Blood pH 7.324 (7.350-7.450) 7.349 (7.350-7.450) Arterial Blood Partial Pressure CO2 36.5 mmHg (35.0-45.0) 35.9 mmHg (35.0-45.0) Arterial Blood Partial Pressure O2 154.9 mmHg (75.0-100.0) H 58.0 mmHg (75.0-100.0) L Arterial Blood HCO3 18.6 mmol/L (22.0-26.0) L 19.3 mmol/L (22.0-26.0) L Arterial Blood Oxygen Saturation 98.3 % (95-100) 87.4 % (95-100) *L Arterial Blood Base Excess -6.8 (-2-2) L -5.6 (-2-2) L Nicolas Test Positive Positive White Blood Count 6.1 K/UL (4.8-10.8) Red Blood Count 4.12 M/UL (4.70-6.10) L Hemoglobin 13.1 G/DL (14.2-18.0) L Hematocrit 37.9 % (42.0-52.0) L Mean Corpuscular Volume 92 FL (80-99) Mean Corpuscular Hemoglobin 31.9 PG (27.0-31.0) H Mean Corpuscular Hemoglobin Concent 34.7 G/DL (32.0-36.0) Red Cell Distribution Width 11.6 % (11.6-14.8) Platelet Count 221 K/UL (150-450) Mean Platelet Volume 7.5 FL (6.5-10.1) Neutrophils (%) (Auto) 62.3 % (45.0-75.0) Lymphocytes (%) (Auto) 24.5 % (20.0-45.0) Monocytes (%) (Auto) 12.0 % (1.0-10.0) H Eosinophils (%) (Auto) 0.1 % (0.0-3.0) Basophils (%) (Auto) 1.1 % (0.0-2.0) D-Dimer 9.14 mg/L FEU (0.00-0.49) H Urine Color Pale yellow Urine Appearance Clear Urine pH 6.5 (4.5-8.0) Urine Specific [place] 1.015 (1.005-1.035) Urine Protein 2+ (NEGATIVE) H Urine Glucose (UA) Negative (NEGATIVE) Urine Ketones 1+ (NEGATIVE) H Urine Blood 4+ (NEGATIVE) H Urine Nitrite Negative (NEGATIVE) Urine Bilirubin Negative (NEGATIVE) Urine Urobilinogen Normal MG/DL (0.0-1.0) Urine Leukocyte Esterase Negative (NEGATIVE) Urine RBC Tntc /HPF (0 - 0) H Urine WBC 0-2 /HPF (0 - 0) Urine Squamous Epithelial Cells None /LPF (NONE/OCC) Urine Bacteria Few /HPF (NONE) Sodium Level 142 MMOL/L (136-145) Potassium Level 4.0 MMOL/L (3.5-5.1) Chloride Level 105 MMOL/L (98-107) Carbon Dioxide Level 24 MMOL/L (21-32) Anion Gap 13 mmol/L (5-15) Blood Urea Nitrogen 12 mg/dL (7-18) Creatinine 1.2 MG/DL (0.55-1.30) Estimat Glomerular Filtration Rate > 60 mL/min (>60) Glucose Level 117 MG/DL (74-106) H Lactic Acid Level 5.70 mmol/L (0.4-2.0) H 2.70 mmol/L (0.66-2.22) H Calcium Level 8.6 MG/DL (8.5-10.1) Ferritin 295 NG/ML (8-388) Total Bilirubin 0.3 MG/DL (0.2-1.0) Aspartate Amino Transf (AST/SGOT) 16 U/L (15-37) Alanine Aminotransferase (ALT/SGPT) 36 U/L (12-78) Alkaline Phosphatase 82 U/L (46-116) Total Creatine Kinase 44 U/L (26-308) Creatine Kinase MB 0.5 NG/ML (0.0-3.6) Creatine Kinase MB Relative Index 1.1 Troponin I 0.227 ng/mL (0.000-0.056) C-Reactive Protein, Quantitative 3.0 mg/dL (0.00-0.90) H Pro-B-Type Natriuretic Peptide 321 pg/mL (0-125) H Total Protein 6.7 G/DL (6.4-8.2) Albumin 2.6 G/DL (3.4-5.0) L Globulin 4.1 g/dL Albumin/Globulin Ratio 0.6 (1.0-2.7) L Urine Legionella Antigen Pending Test 02/27/20 11:50 02/27/20 17:50 Lactic Acid Level 4.90 mmol/L (0.4-2.0) H 3.00 mmol/L (0.4-2.0) H Troponin I 0.109 ng/mL (0.000-0.056) 0.048 ng/mL (0.000-0.056) Microbiology Date/Time Source Procedure Growth Status 02/27/20 03:30 Blood Blood Culture - Preliminary Resulted 02/27/20 03:15 Blood Blood Culture - Preliminary Resulted Antwon Arzate MD February 27, 2020 19:47
[2020-02-27] MEDS: Dyna-Hex 2% Top Sol 2oz TOPIC SCH (20:00)
[2020-02-27] MEDS ORDERED: Dyna-Hex 2% Top Sol 2oz TOPIC SCH (20:00)
--- NOTE | 2020-02-27 20:00 | NUR ---
NURSE NOTES: Dr. Donaldson at bedside, no new orders at this time. Patients temperature is 100.9F. Cooling measures are ongoing. Fever is improving and decreasing. Repositioned patient and oral care performed. HR is 119 ST, BP normotensive
[2020-02-27] MEDS: D5 1/2NS 1,000 ML IV SCH (21:00)
--- NOTE | 2020-02-27 22:00 | NUR ---
NURSE NOTES: Repositioned patient. Cooling measures continue BP is stable Maintaince fluids decreased rate to 50ml/hr. GT flushed 50ml H20. Will continue to monitor.
--- NOTE | 2020-02-27 23:44 | History and Physical Report ---
DATE OF ADMISSION: 02/27/2020 CHIEF COMPLAINT: Shortness of breath, fever. HISTORY OF PRESENT ILLNESS: This is a 59-year-old gentleman with past medical history significant for pneumonia who presented to the hospital from nursing facility [place], [place] after was noted to have respiratory distress and shortness of breath and cough. Patient has a history of G-tube feeding and due to prior history of sepsis, patient has been treated for infection with vancomycin and Zosyn at the nursing facility. However, his symptoms have not improved. He had a spiking fever of 104 with diminished oxygen saturation and subsequently patient was transferred to the hospital via EMS. Shortly after initial evaluation in the emergency department, patient was admitted to the hospital with acute hypoxemic respiratory failure with possible COVID-19 infection and pneumonia. PAST MEDICAL HISTORY/PAST SURGICAL HISTORY: As above. Prior history of sepsis, pneumonia, G-tube placement, psychiatric disorder. MEDICATIONS AT HOME: Please refer to medication reconciliation. ALLERGIES: Benadryl. SOCIAL HISTORY: long-term resident. No smoking, alcohol, or drugs. FAMILY HISTORY: Noncontributory. REVIEW OF SYSTEMS: Very limited secondary to patient's status at this time. He is a poor historian. History mostly taken from the ER chart as well as [facility] documentation. PHYSICAL EXAMINATION: VITAL SIGNS: On admission, temperature is 104, respirations 30, pulse is 160, blood pressure 89/41. GENERAL: Patient chronically ill-looking, moderate distress, awake, however, cannot answer questions. HEAD AND NECK: Pupils are equal and reactive to light. Anicteric. Neck was supple. No JVD. LUNGS: Good air entry. No wheezing or rales. Decreased air in bases. HEART: S1, S2. Tachycardic. No murmur or gallop. ABDOMEN: Soft, nondistended, nontender. PEG site is clean. EXTREMITIES: No cyanosis or clubbing. Mildly edematous in the upper extremity. Right upper extremity has a PICC line was noted. NEUROLOGIC: Very limited secondary to patient's status. Patient is moving all extremities spontaneously; however, cranial nerves II through XII is limited evaluation because patient cannot follow commands. RECTAL/GENITOURINARY: Refused and deferred. PSYCHIATRIC: Mood and affect unable to obtain. LABORATORY DATA: On admission from the emergency department, WBC of 6.1, hemoglobin 13, hematocrit 37, platelets 221. Patient's sodium 142, potassium 4.0, chloride 105, bicarb 24, BUN 12, creatinine 1.2, glucose is 117, calcium is 8.6. Total bilirubin of 0.3. First troponin 0.227. Second troponin is 0.109. CRP is 3.0. Lactic acid is 5.70, second one is 2.7, third one is 4.90. Ferritin is 295. ProBNP of 321. Albumin is 2.6. UA is +2 protein, +4 blood, ketone +1, tainted rbc. D-dimer is 9.14. ABG - pH of 7.32, pCO2 of 36, pO2 of 154, saturating 98%. Chest x-ray is bilateral infiltrate. ASSESSMENT: 1. Acute hypoxemic respiratory failure, possible COVID-19 infection. 2. Bilateral pneumonia. 3. Sepsis. 4. Severe dehydration. 5. Lactic acidosis. 6. Gram-negative bacteremia, possible line sepsis. 7. Dysphagia, status post PEG. 8. Psychiatric disorder. 9. long-term resident. PLAN: Admit patient to ICU. We will follow up with Dr. Hansen, Pulmonary Critical Care as well as Dr. Stokes from Infectious Disease. Patient is on COVID isolation. Initially patient was started on vancomycin and Zosyn. We will switch to meropenem broad-spectrum antibiotics. We will follow up with the removal of the PICC line, possibly due to line sepsis. Code status at this time Full Code. DVT prophylaxis with Lovenox. We will follow up with the laboratory as well as culture in the morning. Marky Go M.D. DR: APRYL JOB#: [id number] CC:
[2020-02-28] VITALS (29 sets, daily range): BP systolic 92–165; BP diastolic 51–84
--- NOTE | 2020-02-28 | NUR ---
NURSE NOTES: Temperature noted to be 101.2F (ax) Tylenol 650mg via GT given Cooling measures till remains in effect Repositioned patient oral care was provided Will continue to monitor.
[2020-02-28] MEDS: Acetaminophen 650mg/20.3ml NG PRN ×2 (00:01→08:37)
[2020-02-28] MEDS: Meropenem 1 GM in NS 55 ML IVPB SCH ×3 (00:02→17:09)
--- NOTE | 2020-02-28 01:45 | Consultation ---
DATE OF CONSULTATION: 02/27/2020 CARDIOLOGY CONSULTATION CONSULTING PHYSICIAN: Antwon Arzate MD. REFERRING PHYSICIAN: Marky Go MD. REASON FOR REFERRAL: Respiratory failure and hypotension and tachycardia. HISTORY OF PRESENT ILLNESS: This is an elderly gentleman who is a resident of a convalescent facility according to the emergency physician's data is 59-year-old with respiratory distress, difficulty with breathing, G-tube dependence as well as recent septic episodes, fever of 104 with decreased oxygen saturation at his facility at [facility]. He was started on non-rebreathing face mask and was brought here by paramedics for psychiatric reasons. Patient has been on antibiotic. ALLERGIES: To Benadryl. PAST MEDICAL HISTORY: According to the chart is positive for history of sepsis, muscle atrophy. No other information is available. SOCIAL HISTORY: Really unknown except for the fact that he is a resident of convalescent facility. REVIEW OF SYSTEMS: Unable to obtain. PHYSICAL EXAMINATION: GENERAL: Shows middle-aged gentleman, looks older than stated age on a face mask in the intensive care unit bed, in no respiratory distress. VITAL SIGNS: Blood pressure most recently in 94/44 with heart rate of 116, temperature was 101 axillary as high as 104 at the time of admission earlier today. He seems to be moving all four extremities. Does not appear to be in respiratory distress. The physical examination as reported by the emergency physician who saw the patient earlier today was normal inspection of the neck. LUNGS: No respiratory distress. No retraction. No crackles. CARDIAC: Tachycardic. ABDOMEN: Soft. No guarding. No rigidity. EXTREMITIES: No evidence of edema. LABORATORY AND DIAGNOSTIC DATA: White count of 6, hemoglobin 13.1, platelet count of 221. Blood gases, pH of 7.39, pCO2 35, pO2 58, bicarbonate of 19, 87% saturation, although this may be a venous gas. Earlier in the morning, he had pH of 7.32, pCO2 35, pO2 of 154, and saturation of 98% with bicarb of 18. D-dimer of 9.4. Urinalysis showed too numerous to count rbc's, 0 to 2 wbc's. IMAGING: Chest x-ray performed in the emergency room is interpreted as bibasilar infiltrates noted on the chest x-ray. Blood cultures positive for gram-negative rods. ASSESSMENT AND PLAN: 1. Septic shock. 2. Respiratory insufficiency. 3. Lactic acidosis. 4. Abnormal cardiac enzymes, likely demand related. Dr. Hansen, this patient was seen in cardiac consultation. The patient's lactic acid seems to be persistently elevated although decreased. He has had blood cultures that were positive for gram-negative rods indicative of sepsis. He does have some abnormal cardiac enzymes that are minimally abnormal, but trending towards normal on the most recent readings. The patient's electrocardiogram indicates sinus tachycardia with heart rates in excess of 160. He had no significant ST or T-wave abnormalities being documented on EKG that was performed by the paramedics nor by the emergency room. Echocardiogram can be ordered. The patient is in COVID isolation for the time being, although I suspect that the likelihood of his COVID infection may be lower than the etiology of his infection from bacteremia possibly from either Urology or GI source. Infectious Disease is following and from a cardiac point of view, we will repeat an EKG and cardiac enzymes and maybe an echocardiogram can be ordered when the patient rules out for COVID. Antwon Arzate M.D. DR: NICK JOB#: [id number] CC:
--- NOTE | 2020-02-28 02:00 | NUR ---
NURSE NOTES: Cooling measures ongoing. Repositioned HR [address] ST BP is stable NAD at this time
--- NOTE | 2020-02-28 04:00 | NUR ---
NURSE NOTES: 1 normal BM switch patient onto NC 3L SpO2 maintained > 96% Breathing pattern normal Pulses present Patient cleaned and kept dry Blood drawn and sent to lab. Abx hung Temperature noted to be 100.7F (ax) Cooling measures still continue.
[2020-02-28] MEDS: Vancomycin 750mg/NS 275ml IVPB SCH ×4 (04:12→16:18)
--- NOTE | 2020-02-28 06:00 | NUR ---
NURSE NOTES: Patient having fever of 101.7F Cooling blanket was applied Other cooling measures initiated HR 130s-140s Sinus tach Blood pressure 133/78 Patient remains on NS 3L.
[2020-02-28 06:03] LABS: HEMATOCRIT 29.7 % (42.0-52.0); HEMOGLOBIN 10.9 G/DL (14.2-18.0); MEAN CORPUSCULAR VOLUME 91 FL (80-99); PLATELET COUNT 159 K/UL (150-450); RED BLOOD COUNT 3.27 M/UL (4.70-6.10); RED CELL DISTRIBUTION WIDTH 11.2 % (11.6-14.8); WHITE BLOOD COUNT 18.8 K/UL (4.8-10.8)
[2020-02-28 06:19] LABS: ANION GAP 8 mmol/L (5-15); BLOOD UREA NITROGEN 15 mg/dL (7-18); CALCIUM 7.9 MG/DL (8.5-10.1); CARBON DIOXIDE 25 MMOL/L (21-32); CHLORIDE 106 MMOL/L (98-107); CREATININE 1.2 MG/DL (0.55-1.30); PHOSPHORUS 2.4 MG/DL (2.5-4.9); POTASSIUM 3.6 MMOL/L (3.5-5.1); SODIUM 139 MMOL/L (136-145)
--- NOTE | 2020-02-28 07:12 | NUR ---
NURSE NOTES: polysomnograph tech informed RN that TSPOT lab test can't be done on the weekends only on the weekdays. Will reorder TSPOT for (Sunday) at 0400.
--- NOTE | 2020-02-28 07:17 | NUR ---
HAND-OFF: Endorsed continuity/plan of care to Paula Barboza RN
--- NOTE | 2020-02-28 07:18 | NUR ---
NURSE NOTES: Received patient from ASAD Justin. Patient alert to name but unable to communicate coherently at this time. Patient on 3L NC at this time. Patient showing no sign of distress at this time. Tremor noted. Patient has history of seizure. Will continue to monitor and ask primary MD for order for Ativan PRN for seizure activity. pateint showing sinus tachycardia on the client insights consultant at this time. Will continue to monitor. Patient on cooling blanket at this time. Rectal temp 101.8. Will continue to monitor and administer tylenol as ordered. Patient NPO at this time. Patient has mcgee for urine retention that was replaced upon arrival to the hospital. Mcgee patent and draining light mervin urine at this time. Sacral redness with small open area noted and bilateral heel DTI noted. Patient has PICC line on right upper arm from senior living and left external jugular 18 gauge peripheral IV. Both IVs patent, asymptomatic, and left EJ running D5 0.45% normal saline at 50mL/hr at this time. Patient bed in low position with bed alarm on and call light in reach at this time. Will continue to monitor.
--- NOTE | 2020-02-28 07:21 | Pulmonolgy Critical Care Note ---
Critical Care - Asmt/Plan Assessment/Plan: ASSESSMENT Severe sepsis Gram-negative bacteremia Acute hypoxemic respiratory failure requiring NRM-resolved Bilateral pneumonia Suspected COVID-19 infection Elevated d-Dimer Dysphagia, feeding by G-tube Elevated troponin Seizure disorder Princess intertrigo PLAN OF CARE ICU status titrate O2 to keep sat above 92% ; pulmonary toilet keep in isolation f/up with SARS-CoV-2 by PCR results abx per ID BCX + GNR , SCX pending PICC line needs to be DC started on zinc and vit C fup with CXR IVF, midodrine as needed for BP support troponin trended down to normal Echo with EF 55% Venous duplex BLE pending DVT prophylaxis seizure precaution continue Keppra Nystatin cream strict aspiration precaution ; G-tube feeding, monitor tolerance supportive care full code case discussed and evaluated by supervising physician Critical Care - Objective Last 24 Hour Vital Signs Date Time Temp Pulse Resp B/P (MAP) Pulse Ox O2 Delivery O2 Flow Rate FiO2 02/28/20 07:00 141 26 125/73 (90) 99 02/28/20 06:00 101.6 138 26 142/64 (90) 99 02/28/20 05:30 120 22 111/65 (80) 100 02/28/20 05:00 125 24 119/60 (79) 100 02/28/20 04:30 124 21 145/78 (100) 100 02/28/20 04:00 3.0 02/28/20 04:00 119 02/28/20 04:00 Venturi Mask 14.0 02/28/20 04:00 100.9 112 22 128/71 (90) 100 02/28/20 03:30 111 22 128/62 (84) 100 02/28/20 03:00 113 21 126/68 (87) 100 02/28/20 02:30 112 25 110/67 (81) 100 02/28/20 02:00 112 21 103/80 (88) 100 02/28/20 01:30 116 21 92/51 (65) 100 02/28/20 01:00 116 21 115/61 (79) 100 02/28/20 00:32 101.0 02/28/20 00:00 Venturi Mask 14.0 02/28/20 00:00 101.2 123 25 116/59 (78) 100 02/28/20 00:00 14.0 55 02/27/20 23:00 120 28 112/58 (76) 100 02/27/20 22:00 114 25 99/51 (67) 100 02/27/20 21:30 119 26 110/63 (79) 100 02/27/20 21:00 112 26 99/43 (61) 100 02/27/20 20:30 115 26 102/51 (68) 100 02/27/20 20:00 100.9 111 28 96/44 (61) 100 02/27/20 20:00 Venturi Mask 14.0 02/27/20 20:00 115 02/27/20 20:00 14.0 55 02/27/20 19:16 101.5 02/27/20 19:00 116 25 98/47 (64) 100 02/27/20 18:00 117 25 99/48 (65) 100 02/27/20 17:00 122 24 98/47 (64) 100 02/27/20 16:00 Venturi Mask 14.0 02/27/20 16:00 14.0 55 02/27/20 16:00 101.3 123 25 109/66 (80) 100 02/27/20 15:41 129 02/27/20 15:30 124 27 115/68 (84) 100 02/27/20 15:00 132 26 93/47 (62) 100 02/27/20 14:00 129 26 98/31 (53) 100 02/27/20 13:01 14.0 55 02/27/20 13:00 101.4 140 25 110/58 (75) 100 02/27/20 12:00 Venturi Mask 14.0 02/27/20 12:00 141 34 117/59 (78) 100 02/27/20 11:52 146 02/27/20 11:00 131 30 103/60 (74) 100 02/27/20 10:00 130 37 115/69 (84) 100 02/27/20 09:00 136 34 89/62 (71) 100 02/27/20 08:00 99.4 135 28 88/69 (75) 99 02/27/20 08:00 15.0 02/27/20 08:00 Non-Rebreather 15.0 02/27/20 07:34 134 Status: awake Condition: critical HEENT: atraumatic, normocephalic Heart: HR/BP stable, other - ST on tele Abdomen: soft, non-tender, active bowel sounds Extremities: no C/C/E Micro: Microbiology Date/Time Source Procedure Growth Status 02/27/20 03:30 Blood Blood Culture - Preliminary Resulted 02/27/20 03:15 Blood Blood Culture - Preliminary Gram Negative Juan Resulted 02/27/20 15:50 Sputum Gram Stain - Final Resulted 02/27/20 15:50 Sputum Sputum Culture Pending Resulted Critical Care - Subjective Interval Events: leuk up to 18.8, febrile weaned to o2 via NC, sat stable BCX + GNR Condition: critical IV Access: PICC - RUE EKG Rhythm: Sinus Tachycardia FI02: 55 Fluids: D5 1/2 NS at 50 I&O: Intake and Output 02/27/20 02/28/20 19:00 07:00 Intake Total 1537.500 ml 1015 ml Output Total 565 ml 550 ml Balance 972.500 ml 465 ml IV Total 1437.500 ml 905 ml Other 100 ml 110 ml Output Urine Total 565 ml 550 ml # Bowel Movements 1 2 CXR: 02/26 bibasilar infiltrates Erika Kaufman [facility] February 28, 2020 07:21
--- NOTE | 2020-02-28 07:50 | NUR ---
HAND-OFF: Report given to ASAD Curtis.
--- NOTE | 2020-02-28 08:00 | NUR ---
NURSE NOTES: Received report from Matthew Barboza RN. Patient awake in bed, nonverbal, unable to follow simple commands and make needs known, noted with slight jerking movement. ST 139 on quality assurance monitor chassis. Receiving O2 via nasal cannula @ 3L/min, rhonchi noted bilaterally. GT in place and clamped. Vargas catheter patent and draining well. Right upper arm PICC in place, dressing clean and dry. Left EJ 18g IV site infusing D51/2NS @ 50 cc/hr, asymptomatic. Patient noted with fever of 101.4F rectally, cooling blanket in place. Will administer PRN acetaminophen and place ice packs. Bed locked in lowest position with padded side rails up x 3. All needs attended to. Call light within reach. Will continue to monitor. Addendum: 02/28/20 at 1525 by Kirsten Cash RN patient has a midline, not a PICC line
[2020-02-28 08:02] LABS: ALANINE AMINOTRANSFERASE 25 U/L (12-78); ALBUMIN/GLOBULIN RATIO 0.6 (1.0-2.7); ALKALINE PHOSPHATASE 59 U/L (46-116); ANION GAP 12 mmol/L (5-15); ASPARTATE AMINO TRANSFERASE 24 U/L (15-37); BILIRUBIN,TOTAL 0.3 MG/DL (0.2-1.0); BLOOD UREA NITROGEN 16 mg/dL (7-18); CARBON DIOXIDE 22 MMOL/L (21-32); CHLORIDE 105 MMOL/L (98-107); CREATININE 1.2 MG/DL (0.55-1.30); FERRITIN 292 NG/ML (8-388); PHOSPHORUS 2.4 MG/DL (2.5-4.9); POTASSIUM 3.7 MMOL/L (3.5-5.1); SODIUM 139 MMOL/L (136-145)
[2020-02-28] MEDS: Valproic Acid 250mg/5ml Liquid NG SCH ×2 (08:25→17:30)
[2020-02-28] MEDS: Azithromycin 500 MG in D5W 275 ML IV SCH (08:25)
[2020-02-28] MEDS: levETIRAcetam 500mg/5ml Liquid NG SCH ×2 (08:26→20:32)
[2020-02-28] MEDS: Enoxaparin 40mg Inj SUBQ SCH (08:26)
[2020-02-28] MEDS: Nystatin Powder 100,000 units/gm 15gm TOPIC SCH ×3 (08:57→17:30)
--- NOTE | 2020-02-28 09:07 | NUR ---
NURSE NOTES: PRN acetaminophen given via GT and cooling measures placed. Patient remains on cooling blanket. Rectal temp downtrending and is currently 100.2F. Will continue to monitor.
--- NOTE | 2020-02-28 09:46 | NUR ---
RD ASSESSMENT & RECOMMENDATIONS SEE CARE ACTIVITY FOR COMPLETE ASSESSMENT DAILY ESTIMATED NEEDS: Needs based on Pulmonary, wound/ 59kg 25-30 kcals/kg 1785-9464 total kcals 1.25-1.5 g protein/kg 73-88 g total protein 25-30 mL/kg 6739-6554 total fluid mLs NUTRITION DIAGNOSIS: Swallowing difficulty R/T dysphagia as evidenced by pt is PEG dependent. CURRENT TF:NPO ENTERAL NUTRITION RECOMMENDATIONS: Jevity 1.2 @ 60ml/hr x 24 hrs to provide 1440ml, 1728kcal, 80g prot, 1160ml free water * As medically appropriate, initiate Jevity 1.2 @ 20ml/hr x 6 hrs * Advance 10ml q 4-6 hrs as tolerated to goal rate * HOB over 30 degrees * Without IVF, water flush of 150ml q 8 hrs ADDITIONAL RECOMMENDATIONS: * Per SNF: HT=60" OC=932bii (02/23/20) * Wound Care: Vit C 250mg QD + Marcelino BID w/ TF order * Monitor lytes, replete as needed (low phos)
--- NOTE | 2020-02-28 10:37 | Infectious Diseases Prog Note ---
Assessment/Plan Assessment/Plan Abx: Cefepime x1 02/26 Flagyl x1 02/26 IV Vancomycin 02/26- Zosyn 02/26- Azithromycin 02/26- Assessment: Severe Sepsis Acute hypoxic respiratory failure on NRB PNA high suspicion for COVID19 Gram neg bacteremia -CXR: Basilar infiltrates. -Bcx 3/4 GNR Fever No leukocytosis -u/a no pyuria Lactic acidosis, improving Princess intertrigo muscle weakness and atrophy (not characterized) psychiatric disorder dysphagia s/p [facility] [place] resident (recently transferred from [place] to [facility]) Plan: -Continue empiric IV Vancomycin, and azithromycin #2 for now - Continue Meropenem #2 02/27/20 SP Zosyn #1 -f/u cx -Monitor CBC/CMP, temperatures -COVID19 isolation and testing -aspiration precautions -Bcx x2 -Remove PICC line when able Thank you for consulting [facility]. Will continue to follow along wiht you. Subjective Allergies: Coded Allergies: DIPHENHYDRAMINE (Verified Allergy, Unknown, 02/27/20) Subjective Fevers to 101.6 On 3L NC WBCs increased to 19 today Blood Cx 3/4 bottles GNR Objective Vital Signs Last 24 Hour Vital Signs Date Time Temp Pulse Resp B/P (MAP) Pulse Ox O2 Delivery O2 Flow Rate FiO2 02/28/20 09:21 100 Nasal Cannula 3.0 32 02/28/20 09:07 100.2 02/28/20 08:00 101.4 139 27 142/73 (96) 100 02/28/20 08:00 Nasal Cannula 3.0 02/28/20 08:00 3.0 02/28/20 07:00 141 26 125/73 (90) 99 02/28/20 06:00 101.6 138 26 142/64 (90) 99 02/28/20 05:30 120 22 111/65 (80) 100 02/28/20 05:00 125 24 119/60 (79) 100 02/28/20 04:30 124 21 145/78 (100) 100 02/28/20 04:00 3.0 02/28/20 04:00 119 02/28/20 04:00 Venturi Mask 14.0 02/28/20 04:00 100.9 112 22 128/71 (90) 100 02/28/20 03:30 111 22 128/62 (84) 100 02/28/20 03:00 113 21 126/68 (87) 100 02/28/20 02:30 112 25 110/67 (81) 100 02/28/20 02:00 112 21 103/80 (88) 100 02/28/20 01:30 116 21 92/51 (65) 100 02/28/20 01:00 116 21 115/61 (79) 100 02/28/20 00:00 Venturi Mask 14.0 02/28/20 00:00 101.2 123 25 116/59 (78) 100 02/28/20 00:00 14.0 55 02/27/20 23:00 120 28 112/58 (76) 100 02/27/20 22:00 114 25 99/51 (67) 100 02/27/20 21:30 119 26 110/63 (79) 100 02/27/20 21:00 112 26 99/43 (61) 100 02/27/20 20:30 115 26 102/51 (68) 100 02/27/20 20:00 100.9 111 28 96/44 (61) 100 02/27/20 20:00 Venturi Mask 14.0 02/27/20 20:00 115 02/27/20 20:00 14.0 55 02/27/20 19:16 101.5 02/27/20 19:00 116 25 98/47 (64) 100 02/27/20 18:00 117 25 99/48 (65) 100 02/27/20 17:00 122 24 98/47 (64) 100 02/27/20 16:00 Venturi Mask 14.0 02/27/20 16:00 14.0 55 02/27/20 16:00 101.3 123 25 109/66 (80) 100 02/27/20 15:41 129 02/27/20 15:30 124 27 115/68 (84) 100 02/27/20 15:00 132 26 93/47 (62) 100 02/27/20 14:00 129 26 98/31 (53) 100 02/27/20 13:01 14.0 55 02/27/20 13:00 101.4 140 25 110/58 (75) 100 02/27/20 12:00 Venturi Mask 14.0 02/27/20 12:00 141 34 117/59 (78) 100 02/27/20 11:52 146 02/27/20 11:00 131 30 103/60 (74) 100 Height (Feet): 5 Height (Inches): 5.00 Weight (Pounds): 149 Microbiology Date/Time Source Procedure Growth Status 02/27/20 03:30 Blood Blood Culture - Preliminary Resulted 02/27/20 03:15 Blood Blood Culture - Preliminary Gram Negative Juan Resulted 02/27/20 15:50 Sputum Gram Stain - Final Resulted 02/27/20 15:50 Sputum Sputum Culture Pending Resulted Laboratory Tests Test 02/27/20 11:50 02/27/20 17:50 02/28/20 05:00 Lactic Acid Level 4.90 mmol/L (0.4-2.0) H 3.00 mmol/L (0.4-2.0) H 1.90 mmol/L (0.4-2.0) Troponin I 0.109 ng/mL (0.000-0.056) 0.048 ng/mL (0.000-0.056) 0.009 ng/mL (0.000-0.056) White Blood Count 18.8 K/UL (4.8-10.8) #H Red Blood Count 3.27 M/UL (4.70-6.10) L Hemoglobin 10.9 G/DL (14.2-18.0) L Hematocrit 29.7 % (42.0-52.0) L Mean Corpuscular Volume 91 FL (80-99) Mean Corpuscular Hemoglobin 33.3 PG (27.0-31.0) H Mean Corpuscular Hemoglobin Concent 36.7 G/DL (32.0-36.0) H Red Cell Distribution Width 11.2 % (11.6-14.8) L Platelet Count 159 K/UL (150-450) Mean Platelet Volume 8.1 FL (6.5-10.1) Neutrophils (%) (Auto) % (45.0-75.0) Lymphocytes (%) (Auto) % (20.0-45.0) Monocytes (%) (Auto) % (1.0-10.0) Eosinophils (%) (Auto) % (0.0-3.0) Basophils (%) (Auto) % (0.0-2.0) Differential Total Cells Counted 100 Neutrophils % (Manual) 73 % (45-75) Lymphocytes % (Manual) 9 % (20-45) L Monocytes % (Manual) 5 % (1-10) Eosinophils % (Manual) 0 % (0-3) Basophils % (Manual) 0 % (0-2) Band Neutrophils 13 % (0-8) H Platelet Estimate Adequate Platelet Morphology Normal Red Blood Cell Morphology Normal Erythrocyte Sedimentation Rate 50 MM/HR (0-20) H Fibrinogen 527 mg/dL (200-400) H D-Dimer 1.96 mg/L FEU (0.00-0.49) H Sodium Level 139 MMOL/L (136-145) Potassium Level 3.6 MMOL/L (3.5-5.1) Chloride Level 106 MMOL/L (98-107) Carbon Dioxide Level 25 MMOL/L (21-32) Anion Gap 8 mmol/L (5-15) Blood Urea Nitrogen 15 mg/dL (7-18) Creatinine 1.2 MG/DL (0.55-1.30) Estimat Glomerular Filtration Rate > 60 mL/min (>60) Glucose Level 78 MG/DL (74-106) Calcium Level 7.9 MG/DL (8.5-10.1) L Phosphorus Level 2.4 MG/DL (2.5-4.9) L Magnesium Level 1.5 MG/DL (1.8-2.4) L Ferritin 292 NG/ML (8-388) Total Bilirubin 0.3 MG/DL (0.2-1.0) Aspartate Amino Transf (AST/SGOT) 24 U/L (15-37) Alanine Aminotransferase (ALT/SGPT) 25 U/L (12-78) Alkaline Phosphatase 59 U/L (46-116) Lactate Dehydrogenase 143 U/L (81-234) C-Reactive Protein, Quantitative 32.3 mg/dL (0.00-0.90) H Total Protein 5.4 G/DL (6.4-8.2) L Albumin 2.0 G/DL (3.4-5.0) L Globulin 3.4 g/dL Albumin/Globulin Ratio 0.6 (1.0-2.7) L Current Medications Medications (Trade) Dose Ordered Sig/Damion Route PRN Reason Start Time Stop Time Status Last Admin Dose Admin Acetaminophen (Tylenol) 650 mg Q4H PRN NG Temp >100.5 02/27/20 06:30 03/28/20 06:29 02/28/20 08:37 Acetaminophen (Tylenol) 650 mg Q4H PRN ORAL fever 02/27/20 08:00 03/28/20 07:59 02/27/20 18:46 Albuterol/ Ipratropium (Albuterol/ Ipratropium) 3 ml Q4H PRN HHN Shortness of Breath 02/27/20 08:00 03/03/20 07:59 Azithromycin 500 mg/Dextrose 275 ml @ 275 mls/hr Q24HRS IV 02/27/20 08:00 03/02/20 08:59 02/28/20 08:25 Chlorhexidine Gluconate (Marci-Hex 2%) 1 applic DAILY@2000 TOPIC 02/27/20 20:00 05/27/20 19:59 02/27/20 20:00 Dextrose/Sodium Chloride 1,000 ml @ 50 mls/hr Q20H IV 02/27/20 21:00 03/28/20 20:59 02/27/20 21:00 Enoxaparin Sodium (Lovenox) 40 mg DAILY SUBQ 02/27/20 09:00 05/27/20 08:59 02/28/20 08:26 Levetiracetam (Keppra) 700 mg Q12HR NG 02/27/20 09:00 03/28/20 08:59 02/28/20 08:26 Meropenem 1 gm/ Sodium Chloride 55 ml @ 110 mls/hr Q8H IVPB 02/27/20 17:00 03/03/20 16:59 02/28/20 08:25 Midodrine (Pro-Amatine) 10 mg Q8H PRN ORAL SBP <95 02/27/20 06:30 05/27/20 06:29 Nitroglycerin (Ntg) 0.4 mg Q5M PRN SL Prn Chest Pain 02/27/20 08:00 03/28/20 07:59 Nystatin (Nystop Powder) 1 applic THREE TIMES A DAY TOPIC 02/27/20 13:00 05/27/20 12:59 02/28/20 08:57 Ondansetron HCl (Zofran) 4 mg Q6H PRN IVP Nausea & Vomiting 02/27/20 08:00 03/28/20 07:59 Polyethylene Glycol (Miralax) 17 gm DAILYPRN PRN ORAL Constipation 02/27/20 08:00 03/28/20 07:59 Promethazine HCl/ Codeine (Phenergan with Codeine) 5 ml Q4H PRN ORAL For Cough 02/27/20 08:00 03/28/20 07:59 Risperidone (RisperDAL) 0.5 mg BIDPRN PRN ORAL mood/psychosis 02/27/20 10:30 04/12/20 06:29 Valproic Acid (Depakene) 250 mg BID NG 02/27/20 09:00 03/28/20 08:59 02/28/20 08:25 Vancomycin HCl (Vanco rx to dose) 1 ea DAILY PRN MISC Per rx protocol 02/27/20 06:30 03/28/20 06:29 Vancomycin HCl 750 mg/Sodium Chloride 275 ml @ 183.333 mls/hr Q12H IVPB 02/27/20 16:00 03/03/20 15:59 02/28/20 04:12 Vitamin D (Vitamin D) 5,000 intlu QWEEK ORAL 02/27/20 09:00 03/28/20 08:59 02/27/20 09:04 Chris Silva MD February 28, 2020 10:37
--- NOTE | 2020-02-28 10:58 | NUR ---
NURSE NOTES: Dr. Silva at bedside, made aware of patient's fever and WBC 18.8, patient came from assisted with PICC line. Received order to d/c current PICC line and place a new PICC line. Will continue to monitor.
--- NOTE | 2020-02-28 12:00 | NUR ---
NURSE NOTES: Patient maintained on cooling blanket with current rectal temp of 98.8. 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 Will continue to monitor.
--- NOTE | 2020-02-28 12:38 | Diagnostic Imaging Report ---
EXAM: XR Chest, 1 View CLINICAL HISTORY: F/U TECHNIQUE: Frontal view of the chest. COMPARISON: Chest x-ray dated 02/27/20. FINDINGS: Lungs: Pulmonary vascular congestion, mildly worsened compared to prior exam. Persistent infiltrates in bilateral perihilar regions and medial lung bases, which may represent pulmonary edema versus pneumonia. Pleural space: Unremarkable. The costophrenic angles are sharp. No visible pneumothorax. Heart: Unremarkable. No cardiomegaly. Mediastinum: Unremarkable. Bones/joints: Unremarkable. Tubes, lines and devices: Telemetry leads overlie the thorax. IMPRESSION: 1. Pulmonary vascular congestion, mildly worsened compared to prior exam. 2. Persistent infiltrates in bilateral perihilar regions and medial lung bases, which may represent pulmonary edema versus pneumonia.
--- NOTE | 2020-02-28 13:31 | NUR ---
NURSE NOTES: Dr. Go at bedside, updated on patient's status, noted with fever on start of shift but currently afebrile. Patient has watery, liquid stool. Also reported magnesium level of 1.5. Received order for c diff and cath tip culture, rectal tube insertion and magnesium sulfate 2g IV x 1.
[2020-02-28] MEDS ORDERED: Sterile Water Irrig 1000ml IRRIG ONE (14:05)
[2020-02-28] MEDS ORDERED: Tubing IV Secondary IV ONE ×2 (14:05→16:03)
[2020-02-28] MEDS ORDERED: D5W 275ml ONE (14:05)
--- NOTE | 2020-02-28 14:25 | Internal Med Progress Note ---
Subjective Physician Name Marky Go Attending Physician Marky Go MD Current Medications Medications (Trade) Dose Ordered Sig/Damion Route PRN Reason Start Time Stop Time Status Last Admin Dose Admin Acetaminophen (Tylenol) 650 mg Q4H PRN NG Temp >100.5 02/27/20 06:30 03/28/20 06:29 02/28/20 08:37 Acetaminophen (Tylenol) 650 mg Q4H PRN ORAL fever 02/27/20 08:00 03/28/20 07:59 02/27/20 18:46 Albuterol/ Ipratropium (Albuterol/ Ipratropium) 3 ml Q4H PRN HHN Shortness of Breath 02/27/20 08:00 03/03/20 07:59 Azithromycin 500 mg/Dextrose 275 ml @ 275 mls/hr Q24HRS IV 02/27/20 08:00 03/02/20 08:59 02/28/20 08:25 Chlorhexidine Gluconate (Marci-Hex 2%) 1 applic DAILY@1999 TOPIC 02/27/20 20:00 03/01/20 19:59 02/27/20 20:00 Chlorhexidine Gluconate (Marci-Hex 2%) 1 applic DAILY@1999 TOPIC 03/01/20 20:00 05/30/20 19:59 Dextrose/Sodium Chloride 1,000 ml @ 50 mls/hr Q20H IV 02/27/20 21:00 03/28/20 20:59 02/27/20 21:00 Enoxaparin Sodium (Lovenox) 40 mg DAILY SUBQ 02/27/20 09:00 05/27/20 08:59 02/28/20 08:26 Heparin Sodium/ Sodium Chloride (Heparin 1000 units/500ml Premix) 1,000 unit ONCE PRN IV picc line placement 03/01/20 07:00 03/03/20 06:59 Levetiracetam (Keppra) 700 mg Q12HR NG 02/27/20 09:00 03/28/20 08:59 02/28/20 08:26 Lidocaine HCl (Xylocaine 1% 30ml) 30 ml ONCE PRN INJ picc line placement 03/01/20 07:00 03/03/20 06:59 Magnesium Sulfate 100 ml @ 100 mls/hr Q1H IVPB 02/28/20 13:45 02/28/20 15:44 Meropenem 1 gm/ Sodium Chloride 55 ml @ 110 mls/hr Q8H IVPB 02/27/20 17:00 03/03/20 16:59 02/28/20 08:25 Midodrine (Pro-Amatine) 10 mg Q8H PRN ORAL SBP <95 02/27/20 06:30 05/27/20 06:29 Nitroglycerin (Ntg) 0.4 mg Q5M PRN SL Prn Chest Pain 02/27/20 08:00 03/28/20 07:59 Nystatin (Nystop Powder) 1 applic THREE TIMES A DAY TOPIC 02/27/20 13:00 05/27/20 12:59 02/28/20 12:54 Ondansetron HCl (Zofran) 4 mg Q6H PRN IVP Nausea & Vomiting 02/27/20 08:00 03/28/20 07:59 Polyethylene Glycol (Miralax) 17 gm DAILYPRN PRN ORAL Constipation 02/27/20 08:00 03/28/20 07:59 Promethazine HCl/ Codeine (Phenergan with Codeine) 5 ml Q4H PRN ORAL For Cough 02/27/20 08:00 03/28/20 07:59 Risperidone (RisperDAL) 0.5 mg BIDPRN PRN ORAL mood/psychosis 02/27/20 10:30 04/12/20 06:29 Valproic Acid (Depakene) 250 mg BID NG 02/27/20 09:00 03/28/20 08:59 02/28/20 08:25 Vancomycin HCl (Vanco rx to dose) 1 ea DAILY PRN MISC Per rx protocol 02/27/20 06:30 03/28/20 06:29 Vancomycin HCl 750 mg/Sodium Chloride 275 ml @ 183.333 mls/hr Q12H IVPB 02/27/20 16:00 03/03/20 15:59 02/28/20 04:12 Vitamin D (Vitamin D) 5,000 intlu QWEEK ORAL 02/27/20 09:00 03/28/20 08:59 02/27/20 09:04 Allergies: Coded Allergies: DIPHENHYDRAMINE (Verified Allergy, Unknown, 02/27/20) Subjective In ICU, awake, open eye, less responsive. Objective Last Vital Signs Date Time Temp Pulse Resp B/P (MAP) Pulse Ox O2 Delivery O2 Flow Rate FiO2 02/28/20 13:00 106 21 136/68 (90) 100 02/28/20 12:00 Nasal Cannula 3.0 02/28/20 12:00 98.8 02/28/20 09:21 32 Laboratory Tests Test 02/27/20 17:50 02/28/20 05:00 Lactic Acid Level 3.00 mmol/L (0.4-2.0) H 1.90 mmol/L (0.4-2.0) Troponin I 0.048 ng/mL (0.000-0.056) 0.009 ng/mL (0.000-0.056) White Blood Count 18.8 K/UL (4.8-10.8) #H Red Blood Count 3.27 M/UL (4.70-6.10) L Hemoglobin 10.9 G/DL (14.2-18.0) L Hematocrit 29.7 % (42.0-52.0) L Mean Corpuscular Volume 91 FL (80-99) Mean Corpuscular Hemoglobin 33.3 PG (27.0-31.0) H Mean Corpuscular Hemoglobin Concent 36.7 G/DL (32.0-36.0) H Red Cell Distribution Width 11.2 % (11.6-14.8) L Platelet Count 159 K/UL (150-450) Mean Platelet Volume 8.1 FL (6.5-10.1) Neutrophils (%) (Auto) % (45.0-75.0) Lymphocytes (%) (Auto) % (20.0-45.0) Monocytes (%) (Auto) % (1.0-10.0) Eosinophils (%) (Auto) % (0.0-3.0) Basophils (%) (Auto) % (0.0-2.0) Differential Total Cells Counted 100 Neutrophils % (Manual) 73 % (45-75) Lymphocytes % (Manual) 9 % (20-45) L Monocytes % (Manual) 5 % (1-10) Eosinophils % (Manual) 0 % (0-3) Basophils % (Manual) 0 % (0-2) Band Neutrophils 13 % (0-8) H Platelet Estimate Adequate Platelet Morphology Normal Red Blood Cell Morphology Normal Erythrocyte Sedimentation Rate 50 MM/HR (0-20) H Fibrinogen 527 mg/dL (200-400) H D-Dimer 1.96 mg/L FEU (0.00-0.49) H Sodium Level 139 MMOL/L (136-145) Potassium Level 3.6 MMOL/L (3.5-5.1) Chloride Level 106 MMOL/L (98-107) Carbon Dioxide Level 25 MMOL/L (21-32) Anion Gap 8 mmol/L (5-15) Blood Urea Nitrogen 15 mg/dL (7-18) Creatinine 1.2 MG/DL (0.55-1.30) Estimat Glomerular Filtration Rate > 60 mL/min (>60) Glucose Level 78 MG/DL (74-106) Calcium Level 7.9 MG/DL (8.5-10.1) L Phosphorus Level 2.4 MG/DL (2.5-4.9) L Magnesium Level 1.5 MG/DL (1.8-2.4) L Ferritin 292 NG/ML (8-388) Total Bilirubin 0.3 MG/DL (0.2-1.0) Aspartate Amino Transf (AST/SGOT) 24 U/L (15-37) Alanine Aminotransferase (ALT/SGPT) 25 U/L (12-78) Alkaline Phosphatase 59 U/L (46-116) Lactate Dehydrogenase 143 U/L (81-234) C-Reactive Protein, Quantitative 32.3 mg/dL (0.00-0.90) H Total Protein 5.4 G/DL (6.4-8.2) L Albumin 2.0 G/DL (3.4-5.0) L Globulin 3.4 g/dL Albumin/Globulin Ratio 0.6 (1.0-2.7) L Microbiology Date/Time Source Procedure Growth Status 02/27/20 03:30 Blood Blood Culture - Preliminary Resulted 02/27/20 03:15 Blood Blood Culture - Preliminary Gram Negative Juan Resulted 02/27/20 15:50 Sputum Gram Stain - Final Resulted 02/27/20 15:50 Sputum Sputum Culture Pending Resulted Intake and Output 02/27/20 02/28/20 19:00 07:00 Intake Total 1537.500 ml 1015 ml Output Total 565 ml 550 ml Balance 972.500 ml 465 ml IV Total 1437.500 ml 905 ml Other 100 ml 110 ml Output Urine Total 565 ml 550 ml # Bowel Movements 1 2 Objective GENERAL: Patient chronically ill-looking, moderate distress, cannot answer questions. HEAD AND NECK: Pupils are equal and reactive to light. Anicteric. Neck was supple. No JVD. LUNGS: Good air entry. No wheezing or rales. Decreased air in bases. HEART: S1, S2. Tachycardic. No murmur or gallop. ABDOMEN: Soft, nondistended, nontender. PEG site is clean. EXTREMITIES: No cyanosis or clubbing. Mildly edematous in the upper extremity. Right upper extremity has a PICC line. NEUROLOGIC: Very limited secondary to patient's status. Patient is moving all extremities spontaneously; however, cranial nerves II through XII is limited evaluation. RECTAL/GENITOURINARY: Refused and deferred. PSYCHIATRIC: Mood and affect unable to obtain. Assessment/Plan Assessment/Plan ASSESSMENT: 1. Acute hypoxemic respiratory failure, possible COVID-19 infection. 2. Bilateral pneumonia. 3. Sepsis. 4. Severe dehydration. 5. Lactic acidosis. 6. Gram-negative bacteremia, possible line sepsis. 7. Dysphagia, status post PEG. 8. Psychiatric disorder. 9. care home resident. 10. Elevated Troponin most likely due to Demand ischemia. PLAN: In ICU, COVID-[address] Hansen, Pulmonary Critical Care, Dr. Stokes from Infectious Disease, Dr. Barragan from Cardiology consultation. Abx: vancomycin and Meropenem IV broad-spectrum antibiotics. Removal of the PICC line. Code status: Full Code. DVT prophylaxis: Lovenox Inj. Follow up with the laboratory as well as culture. Marky Go MD February 28, 2020 14:25
--- NOTE | 2020-02-28 15:00 | NUR ---
NURSE NOTES: Rectal tube inserted and midline catheter removed. Stool and cath tip sent to lab for culture.
[2020-02-28] MEDS ORDERED: NS Irrig 1000ml ONE (16:03)
[2020-02-28] MEDS ORDERED: D5W 550ml IV ONE (16:03)
[2020-02-28] MEDS ORDERED: NS 275ml ONE ×2 (16:03→22:38)
--- NOTE | 2020-02-28 16:10 | NUR ---
NURSE NOTES: Vancomycin trough result of 16.4 reported to Miguel pharmacist, ordered to continue same dose.
[2020-02-28] MEDS: D5 1/2NS 1,000 ML IV SCH (17:10)
--- NOTE | 2020-02-28 17:22 | NUR ---
NURSE NOTES: Dr. Go updated on patient's status, afebrile with rectal temp of 98.6F. Received order to transfer to SDU.
--- NOTE | 2020-02-28 18:59 | NUR ---
HAND-OFF: Report given to Letitia Lechuga RN, using SBAR.
--- NOTE | 2020-02-28 19:25 | NUR ---
NURSE NOTES: Received report from ASAD Curtis. Patient awake in bed with eyes open, nonverbal, unable to follow simple commands and make needs known, pt. noted w/ slight jerking movement. no signs or symptoms of acute cardiac or respiratory distress noted, bed alarm on, side rails up x's3 and safety brakes engaged, side rails padded for seizure precautions- no seizure activity noted- upon assessment, Pt. receiving O2 via nasal cannula @ 3L/min. GT in place and clamped. Vargas catheter patent and draining to gravity, Left EJ 18g IV site infusing D5 1/2NS @ 50 cc/hr, cooling blanket in place- will administer PRN acetaminophen and place ice packs. Rectal tube intact and draining to gravity, will continue to monitor pt. and with plan of care.
[2020-02-28] MEDS: Dyna-Hex 2% Top Sol 2oz TOPIC SCH (20:31)
--- NOTE | 2020-02-28 21:30 | NUR ---
NURSE NOTES: All 2100 meds administered- oral care provided- pt. remains stable- will continue to monitor pt. and with plan of care.
[2020-02-29] VITALS (7 sets, daily range): BP systolic 116–153; BP diastolic 70–81
[2020-02-29] MEDS: Meropenem 1 GM in NS 55 ML IVPB SCH ×3 (00:59→18:02)
--- NOTE | 2020-02-29 01:05 | NUR ---
NURSE NOTES: cleaned and repositioned pt., oral care provided- wound care pic taken and dressings changed- will continue to monitor pt. and with plan of care.
--- NOTE | 2020-02-29 01:50 | NUR ---
HAND-OFF: Report given to Loc Rn- pt. transferred to SDU to room 241-2- pt. remains stable and no signs of distress noted.
--- NOTE | 2020-02-29 02:00 | NUR ---
NURSE NOTES: Report received from ASAD Lechuga. Pt sleeping in the bed. On 3L NC, no sob. VS WNL, except HR of 108 noted, ST. No acute distress noted at this time. Noted shaking of upper exts. Will continue to monitor. Belonging checked. Skin checked and picture uploaded.
[2020-02-29] MEDS ORDERED: Nitroglycerin Subl 0.4mg tab SL PRN (02:20)
[2020-02-29] MEDS ORDERED: Albuterol/Ipratropium 3ml neb HHN PRN (02:30)
[2020-02-29] MEDS ORDERED: Midodrine 10mg tab ORAL PRN (02:34)
[2020-02-29] MEDS ORDERED: Miralax 17gm pkt ORAL PRN (02:36)
[2020-02-29] MEDS: D5 1/2NS 1,000 ML IV SCH ×2 (03:10→23:00)
[2020-02-29] MEDS: Vancomycin 750 MG in NS 275 ML IVPB SCH ×2 (04:58→16:01)
--- NOTE | 2020-02-29 05:57 | NUR ---
NURSE NOTES: Pt appears calm and comfortable. VS WNL. ST on security monitor. Lab drawn and will be sent to lab. Will continue to monitor.
--- NOTE | 2020-02-29 07:16 | NUR ---
HAND-OFF: Report given to ASAD Curry. pt sleeping in the bed. No acute distress noted at this time.
--- NOTE | 2020-02-29 07:16 | NUR ---
NURSE NOTES: Received report from Loc RN, Pt in bed awake, non-verbal and unable to make needs known. IV site in LEJ 18G running with D5 1/2NS @50ml/hr patent and asymptomatic. Side railsx3 up for safety. Call light within easy reach. G-tube intact and patent and on NPO. HOB elevated with 45 degree. On rectal tube, noted dark green color liquid BM in drainage tube. Will continue plan of care.
[2020-02-29 07:51] LABS: HEMATOCRIT 31.4 % (42.0-52.0); HEMOGLOBIN 11.2 G/DL (14.2-18.0); MEAN CORPUSCULAR VOLUME 91 FL (80-99); PLATELET COUNT 167 K/UL (150-450); RED BLOOD COUNT 3.45 M/UL (4.70-6.10); RED CELL DISTRIBUTION WIDTH 11.3 % (11.6-14.8)
[2020-02-29 07:57] LABS: WHITE BLOOD COUNT 26.5 K/UL (4.8-10.8)
[2020-02-29 08:08] LABS: ALANINE AMINOTRANSFERASE 18 U/L (12-78); ALBUMIN/GLOBULIN RATIO 0.5 (1.0-2.7); ALKALINE PHOSPHATASE 101 U/L (46-116); ANION GAP 13 mmol/L (5-15); ASPARTATE AMINO TRANSFERASE 24 U/L (15-37); BILIRUBIN,TOTAL 0.4 MG/DL (0.2-1.0); BLOOD UREA NITROGEN 23 mg/dL (7-18); CALCIUM 8.5 MG/DL (8.5-10.1); CARBON DIOXIDE 23 MMOL/L (21-32); CHLORIDE 105 MMOL/L (98-107); POTASSIUM 3.8 MMOL/L (3.5-5.1); SODIUM 141 MMOL/L (136-145)
[2020-02-29] MEDS: levETIRAcetam 500mg/5ml Liquid NG SCH ×2 (08:25→20:35)
[2020-02-29] MEDS: Valproic Acid 250mg/5ml Liquid NG SCH ×2 (08:25→20:35)
--- NOTE | 2020-02-29 08:30 | NUR ---
NURSE NOTES: Paged Dr. Stokes for the positive results for ESBL blood and WBC 26.5 today. Awaiting for reply.
--- NOTE | 2020-02-29 08:30 | Pulmonology Progress Note ---
Subjective Allergies: Coded Allergies: DIPHENHYDRAMINE (Verified Allergy, Unknown, 02/27/20) Subjective transferred to [facility] leukocytosis with trend up, febrile at night, currently no fevers CXR 02/27 Persistent infiltrates in bilateral perihilar regions and medial lung bases, which may represent pulmonary edema versus pneumonia positive BCx on 3L O2 via NC Objective Last 24 Hour Vital Signs Date Time Temp Pulse Resp B/P (MAP) Pulse Ox O2 Delivery O2 Flow Rate FiO2 02/29/20 08:09 99 Nasal Cannula 3.0 32 02/29/20 04:00 98.2 110 24 121/70 (87) 100 02/29/20 04:00 3.0 02/29/20 04:00 Nasal Cannula 3.0 02/29/20 03:41 114 02/29/20 01:00 102 24 148/73 (98) 100 02/29/20 00:00 Nasal Cannula 3.0 02/29/20 00:00 3.0 02/29/20 00:00 98.8 108 25 153/71 (98) 100 02/28/20 23:01 115 02/28/20 23:00 110 22 165/73 (103) 100 02/28/20 22:00 120 27 150/75 (100) 98 02/28/20 21:00 116 24 144/80 (101) 100 02/28/20 20:09 100 Nasal Cannula 3.0 32 02/28/20 20:06 115 02/28/20 20:00 3.0 02/28/20 20:00 98.7 114 22 143/84 (103) 100 02/28/20 20:00 Nasal Cannula 3.0 02/28/20 19:00 114 26 151/74 (99) 100 02/28/20 18:00 114 25 150/70 (96) 99 02/28/20 17:00 120 26 156/70 (98) 99 02/28/20 16:00 Nasal Cannula 3.0 02/28/20 16:00 98.8 119 22 148/73 (98) 97 02/28/20 16:00 3.0 02/28/20 15:30 116 02/28/20 15:00 121 26 153/78 (103) 96 02/28/20 14:00 114 24 154/82 (106) 100 02/28/20 13:00 106 21 136/68 (90) 100 02/28/20 12:00 Nasal Cannula 3.0 02/28/20 12:00 98.8 118 27 155/76 (102) 99 02/28/20 12:00 3.0 02/28/20 11:44 119 02/28/20 11:00 121 27 146/77 (100) 100 02/28/20 10:00 124 27 142/73 (96) 99 02/28/20 09:21 100 Nasal Cannula 3.0 32 02/28/20 09:07 100.2 02/28/20 09:00 133 29 138/69 (92) 98 Intake and Output 02/28/20 02/29/20 19:00 07:00 Intake Total 1495.000 ml 720 ml Output Total 1215 ml 620 ml Balance 280.000 ml 100 ml IV Total 1335.000 ml 660 ml Tube Feeding 0 ml 0 ml Other 160 ml 60 ml Output Urine Total 1115 ml 580 ml Stool Total 100 ml 40 ml # Bowel Movements 2 General Appearance: no acute distress HEENT: normocephalic, atraumatic, anicteric Respiratory: rhonchi - bilaterally Cardiovascular: tachycardia Abdomen: normal bowel sounds, soft, non tender Extremities: no edema, pedal pulses normal Neurologic: abnormal gait, other - poorly responsive Musculoskeletal: atrophy - BLE Microbiology Date/Time Source Procedure Growth Status 02/27/20 03:30 Blood Blood Culture - Final Klebsiella Pneumoniae Esbl Complete 02/27/20 03:15 Blood Blood Culture - Final Klebsiella Pneumoniae Esbl Complete 02/27/20 15:50 Sputum Gram Stain - Final Resulted 02/27/20 15:50 Sputum Culture - Preliminary Gram Negative Juan Resulted Laboratory Tests 02/28/20 15:10: Vancomycin Level Trough 16.4H 02/29/20 05:00: White Blood Count 26.5*H, Red Blood Count 3.45L, Hemoglobin 11.2L, Hematocrit 31.4L, Mean Corpuscular Volume 91, Mean Corpuscular Hemoglobin 32.5H, Mean Corpuscular Hemoglobin Concent 35.8, Red Cell Distribution Width 11.3L, Platelet Count 167, Mean Platelet Volume 7.0, Neutrophils (%) (Auto) , Lymphocytes (%) (Auto) , Monocytes (%) (Auto) , Eosinophils (%) (Auto) , Basophils (%) (Auto) , Neutrophils % (Manual) [Pending], Lymphocytes % (Manual) [Pending], Platelet Estimate [Pending], Platelet Morphology [Pending], Sodium Level 141, Potassium Level 3.8, Chloride Level 105, Carbon Dioxide Level 23, Anion Gap 13, Blood Urea Nitrogen 23H, Creatinine 1.0, Estimat Glomerular Filtration Rate > 60, Glucose Level 78, Calcium Level 8.5, Phosphorus Level 2.0L , Magnesium Level 2.0, Total Bilirubin 0.4, Aspartate Amino Transf (AST/SGOT) 24 , Alanine Aminotransferase (ALT/SGPT) 18, Alkaline Phosphatase 101, Total Protein 5.7L, Albumin 2.0L, Globulin 3.7, Albumin/Globulin Ratio 0.5L Current Medications Medications (Trade) Dose Ordered Sig/Damion Route PRN Reason Start Time Stop Time Status Last Admin Dose Admin Acetaminophen (Tylenol) 650 mg Q4H PRN NG Temp >100.5 02/29/20 02:30 03/28/20 06:29 Acetaminophen (Tylenol) 650 mg Q4H PRN ORAL fever 02/29/20 02:28 03/28/20 02:27 Albuterol/ Ipratropium (Albuterol/ Ipratropium) 3 ml Q4H PRN HHN Shortness of Breath 02/29/20 02:30 03/03/20 02:29 Azithromycin 500 mg/Dextrose 275 ml @ 275 mls/hr Q24HRS IV 02/29/20 08:00 03/02/20 08:59 Chlorhexidine Gluconate (Marci-Hex 2%) 1 applic DAILY@2000 TOPIC 02/29/20 20:00 05/29/20 19:59 Dextrose/Sodium Chloride 1,000 ml @ 50 mls/hr Q20H IV 02/29/20 03:00 03/28/20 02:59 02/29/20 03:10 Enoxaparin Sodium (Lovenox) 40 mg DAILY SUBQ 02/29/20 09:00 05/27/20 08:59 Heparin Sodium/ Sodium Chloride (Heparin 1000 units/500ml Premix) 1,000 unit ONCE PRN IV picc line placement 03/01/20 07:00 03/03/20 06:59 Levetiracetam (Keppra) 700 mg Q12HR NG 02/29/20 09:00 03/28/20 08:59 Lidocaine HCl (Xylocaine 1% 30ml) 30 ml ONCE PRN INJ picc line placement 03/01/20 07:00 03/03/20 06:59 Meropenem 1 gm/ Sodium Chloride 55 ml @ 110 mls/hr Q8H IVPB 02/29/20 09:00 03/03/20 16:59 Midodrine (Pro-Amatine) 10 mg Q8H PRN ORAL SBP <95 02/29/20 02:34 05/27/20 02:33 Nitroglycerin (Ntg) 0.4 mg Q5M PRN SL Prn Chest Pain 02/29/20 02:20 03/28/20 07:59 Nystatin (Nystop Powder) 1 applic THREE TIMES A DAY TOPIC 02/29/20 09:00 05/27/20 12:59 Ondansetron HCl (Zofran) 4 mg Q6H PRN IVP Nausea & Vomiting 02/29/20 02:36 03/28/20 02:35 Polyethylene Glycol (Miralax) 17 gm DAILYPRN PRN ORAL Constipation 02/29/20 02:36 03/28/20 02:35 Promethazine HCl/ Codeine (Phenergan with Codeine) 5 ml Q4H PRN ORAL For Cough 02/29/20 02:36 03/28/20 02:35 Risperidone (RisperDAL) 0.5 mg BIDPRN PRN ORAL mood/psychosis 02/29/20 02:37 04/12/20 02:36 Valproic Acid (Depakene) 250 mg BID@0900,2100 NG 02/29/20 09:00 03/30/20 08:59 Vancomycin HCl (Vanco rx to dose) 1 ea DAILY PRN MISC Per rx protocol 02/29/20 09:00 03/28/20 06:29 Vancomycin HCl 750 mg/Sodium Chloride 275 ml @ 183.333 mls/hr Q12H IVPB 02/29/20 04:00 03/03/20 15:59 02/29/20 04:58 Vitamin D (Vitamin D) 5,000 intlu QWEEK ORAL 03/05/20 09:00 03/28/20 08:59 Assessment/Plan Assessment/Plan ASSESSMENT Severe sepsis KP ESBL bacteremia Acute hypoxemic respiratory failure requiring NRM-resolved Bilateral pneumonia Leukocytosis, possible aspiration Suspected COVID-19 infection Elevated d-Dimer Dysphagia, feeding by G-tube Elevated troponin Seizure disorder Princess intertrigo PLAN OF CARE in [facility] titrate O2 to keep sat above 92% ; pulmonary toilet keep in isolation f/up with SARS-CoV-2 by PCR results abx per ID BCX +ESBL Klebsiella pneumonia, SCX + GNR PICC line needs to be DC started on zinc and vit C fup with CXR CXR 02/27 with persistent infiltrates in bilateral perihilar regions and medial lung bases, which may represent pulmonary edema versus pneumonia CRP up to 32 on IVF, midodrine as needed for BP support troponin trended down to normal Echo with EF 55% Venous duplex BLE pending DVT prophylaxis seizure precaution , continue Keppra Nystatin cream strict aspiration precaution ; G-tube feeding, monitor tolerance supportive care full code case discussed and evaluated by supervising physician Erika Kaufman NP February 29, 2020 08:30
[2020-02-29] MEDS: Azithromycin 500 MG in D5W 275 ML IV SCH (08:32)
[2020-02-29] MEDS: Enoxaparin 40mg Inj SUBQ SCH (08:35)
[2020-02-29] MEDS ORDERED: Albuterol 90mcg Inhaler 8gm INH PRN (08:36)
[2020-02-29] MEDS: Nystatin Powder 100,000 units/gm 15gm TOPIC SCH ×3 (09:01→18:02)
--- NOTE | 2020-02-29 10:10 | NUR ---
NURSE NOTES: Dr. Stokes called back and asked to call Dr. Silva(nurse monitoring today)
--- NOTE | 2020-02-29 10:20 | NUR ---
NURSE NOTES: Paged Dr. medellin for the positive results for ESBL blood and WBC 26.5 today. Awaiting for reply.
[2020-02-29] MEDS ORDERED: Albuterol ud Inhalation HHN PRN (11:26)
--- NOTE | 2020-02-29 12:17 | NUR ---
NURSE NOTES: Made Dr Mcmillan aware of negative results of covid 19. 2nd test of covid 19 ordered and carried out.
[2020-02-29] MEDS: Lactobacillus-GG tablet ORAL SCH ×2 (12:42→18:02)
--- NOTE | 2020-02-29 13:30 | Internal Med Progress Note ---
Subjective Physician Name Marky Go Attending Physician Marky Go MD Current Medications Medications (Trade) Dose Ordered Sig/Damion Route PRN Reason Start Time Stop Time Status Last Admin Dose Admin Acetaminophen (Tylenol) 650 mg Q4H PRN NG Temp >100.5 02/29/20 02:30 03/28/20 06:29 Acetaminophen (Tylenol) 650 mg Q4H PRN ORAL fever 02/29/20 02:28 03/28/20 02:27 Albuterol Sulfate (Proventil) 2.5 mg Q4H PRN HHN Shortness of Breath 02/29/20 11:26 03/05/20 11:25 Azithromycin 500 mg/Dextrose 275 ml @ 275 mls/hr Q24HRS IV 02/29/20 08:00 03/02/20 08:59 02/29/20 08:32 Chlorhexidine Gluconate (Marci-Hex 2%) 1 applic DAILY@2000 TOPIC 02/29/20 20:00 05/29/20 19:59 Dextrose/Sodium Chloride 1,000 ml @ 50 mls/hr Q20H IV 02/29/20 03:00 03/28/20 02:59 02/29/20 03:10 Enoxaparin Sodium (Lovenox) 40 mg DAILY SUBQ 02/29/20 09:00 05/27/20 08:59 02/29/20 08:35 Heparin Sodium/ Sodium Chloride (Heparin 1000 units/500ml Premix) 1,000 unit ONCE PRN IV picc line placement 03/01/20 07:00 03/03/20 06:59 Lactobacillus Acidophilus (Culturelle) 1 tab TWICE A DAY ORAL 02/29/20 13:00 05/29/20 12:59 02/29/20 12:42 Levetiracetam (Keppra) 700 mg Q12HR NG 02/29/20 09:00 03/28/20 08:59 02/29/20 08:25 Lidocaine HCl (Xylocaine 1% 30ml) 30 ml ONCE PRN INJ picc line placement 03/01/20 07:00 03/03/20 06:59 Loperamide HCl (Imodium) 2 mg Q6H PRN GT Diarrhea 02/29/20 12:45 03/30/20 12:44 02/29/20 12:42 Meropenem 1 gm/ Sodium Chloride 55 ml @ 110 mls/hr Q8H IVPB 02/29/20 09:00 03/03/20 16:59 02/29/20 08:30 Midodrine (Pro-Amatine) 10 mg Q8H PRN ORAL SBP <95 02/29/20 02:34 05/27/20 02:33 Nitroglycerin (Ntg) 0.4 mg Q5M PRN SL Prn Chest Pain 02/29/20 02:20 03/28/20 07:59 Nystatin (Nystop Powder) 1 applic THREE TIMES A DAY TOPIC 02/29/20 09:00 05/27/20 12:59 02/29/20 12:43 Ondansetron HCl (Zofran) 4 mg Q6H PRN IVP Nausea & Vomiting 02/29/20 02:36 03/28/20 02:35 Polyethylene Glycol (Miralax) 17 gm DAILYPRN PRN ORAL Constipation 02/29/20 02:36 03/28/20 02:35 Promethazine HCl/ Codeine (Phenergan with Codeine) 5 ml Q4H PRN ORAL For Cough 02/29/20 02:36 03/28/20 02:35 Risperidone (RisperDAL) 0.5 mg BIDPRN PRN ORAL mood/psychosis 02/29/20 02:37 04/12/20 02:36 Valproic Acid (Depakene) 250 mg BID@0900,2100 NG 02/29/20 09:00 03/30/20 08:59 02/29/20 08:25 Vancomycin HCl (Vanco rx to dose) 1 ea DAILY PRN MISC Per rx protocol 02/29/20 09:00 03/28/20 06:29 Vancomycin HCl 750 mg/Sodium Chloride 275 ml @ 183.333 mls/hr Q12H IVPB 02/29/20 04:00 03/03/20 15:59 02/29/20 04:58 Vitamin D (Vitamin D) 5,000 intlu QWEEK ORAL 03/05/20 09:00 03/28/20 08:59 Allergies: Coded Allergies: DIPHENHYDRAMINE (Verified Allergy, Unknown, 02/27/20) Subjective transfer out of ICU to PCU, awake, more responsive open eye, WBC: 26.5, + Diarrhea, Objective Last Vital Signs Date Time Temp Pulse Resp B/P (MAP) Pulse Ox O2 Delivery O2 Flow Rate FiO2 02/29/20 12:00 98.7 105 22 132/78 (96) 98 02/29/20 08:09 Nasal Cannula 3.0 32 Laboratory Tests Test 02/28/20 15:10 02/29/20 05:00 Vancomycin Level Trough 16.4 ug/mL (5.0-12.0) H White Blood Count 26.5 K/UL (4.8-10.8) *H Red Blood Count 3.45 M/UL (4.70-6.10) L Hemoglobin 11.2 G/DL (14.2-18.0) L Hematocrit 31.4 % (42.0-52.0) L Mean Corpuscular Volume 91 FL (80-99) Mean Corpuscular Hemoglobin 32.5 PG (27.0-31.0) H Mean Corpuscular Hemoglobin Concent 35.8 G/DL (32.0-36.0) Red Cell Distribution Width 11.3 % (11.6-14.8) L Platelet Count 167 K/UL (150-450) Mean Platelet Volume 7.0 FL (6.5-10.1) Neutrophils (%) (Auto) % (45.0-75.0) Lymphocytes (%) (Auto) % (20.0-45.0) Monocytes (%) (Auto) % (1.0-10.0) Eosinophils (%) (Auto) % (0.0-3.0) Basophils (%) (Auto) % (0.0-2.0) Differential Total Cells Counted 100 Neutrophils % (Manual) 77 % (45-75) H Lymphocytes % (Manual) 3 % (20-45) L Monocytes % (Manual) 3 % (1-10) Eosinophils % (Manual) 0 % (0-3) Basophils % (Manual) 0 % (0-2) Band Neutrophils 17 % (0-8) H Platelet Estimate Adequate Platelet Morphology Normal Red Blood Cell Morphology Normal Sodium Level 141 MMOL/L (136-145) Potassium Level 3.8 MMOL/L (3.5-5.1) Chloride Level 105 MMOL/L (98-107) Carbon Dioxide Level 23 MMOL/L (21-32) Anion Gap 13 mmol/L (5-15) Blood Urea Nitrogen 23 mg/dL (7-18) H Creatinine 1.0 MG/DL (0.55-1.30) Estimat Glomerular Filtration Rate > 60 mL/min (>60) Glucose Level 78 MG/DL (74-106) Calcium Level 8.5 MG/DL (8.5-10.1) Phosphorus Level 2.0 MG/DL (2.5-4.9) L Magnesium Level 2.0 MG/DL (1.8-2.4) Total Bilirubin 0.4 MG/DL (0.2-1.0) Aspartate Amino Transf (AST/SGOT) 24 U/L (15-37) Alanine Aminotransferase (ALT/SGPT) 18 U/L (12-78) Alkaline Phosphatase 101 U/L (46-116) Total Protein 5.7 G/DL (6.4-8.2) L Albumin 2.0 G/DL (3.4-5.0) L Globulin 3.7 g/dL Albumin/Globulin Ratio 0.5 (1.0-2.7) L Microbiology Date/Time Source Procedure Growth Status 02/27/20 03:30 Blood Blood Culture - Final Klebsiella Pneumoniae Esbl Complete 02/27/20 03:15 Blood Blood Culture - Final Klebsiella Pneumoniae Esbl Complete 02/27/20 15:50 Sputum Gram Stain - Final Resulted 02/27/20 15:50 Sputum Culture - Preliminary Gram Negative Juan Resulted 02/27/20 04:20 Nasopharynx Coronavirus COVID-19 PCR (TUNG) - Final Complete 02/28/20 14:30 Stool Clostridium difficile Toxin Assay - Final Complete Intake and Output 02/28/20 02/29/20 19:00 07:00 Intake Total 1495.000 ml 720 ml Output Total 1215 ml 620 ml Balance 280.000 ml 100 ml IV Total 1335.000 ml 660 ml Tube Feeding 0 ml 0 ml Other 160 ml 60 ml Output Urine Total 1115 ml 580 ml Stool Total 100 ml 40 ml # Bowel Movements 2 Objective GENERAL: Patient chronically ill-looking, not distress, on Room air sat 98%. HEAD AND NECK: Pupils are equal and reactive to light. Anicteric. Neck was supple. No JVD. LUNGS: Good air entry. No wheezing or rales. Decreased air in bases. HEART: S1, S2. Tachycardic. No murmur or gallop. ABDOMEN: Soft, nondistended, nontender. PEG site is clean. EXTREMITIES: No cyanosis or clubbing. Mildly edematous in the upper extremity. Right upper extremity has a PICC line. NEUROLOGIC: Very limited secondary to patient's status. Patient is moving all extremities spontaneously slowly; cranial nerves II through XII is limited evaluation. RECTAL/GENITOURINARY: Refused and deferred. PSYCHIATRIC: Mood and affect unable to obtain. Assessment/Plan Assessment/Plan ASSESSMENT: 1. Acute hypoxemic respiratory failure, possible COVID-19 infection. 2. Bilateral pneumonia. 3. Sepsis. 4. Severe dehydration. 5. Lactic acidosis. 6. Klebsiella ESBL bacteremia, possible line sepsis. 7. Dysphagia, status post PEG. 8. Psychiatric disorder. 9. senior living resident. 10. Elevated Troponin most likely due to Demand ischemia. PLAN: In [place], COVID-[address] Hansen, Pulmonary Critical Care, Dr. Stokes from Infectious Disease, Dr. Barragan from Cardiology consultation. Abx: vancomycin and Meropenem IV Removed of the PICC line. Code status: Full Code. DVT prophylaxis: Lovenox Inj. Follow up with the laboratory as well as culture. Lomotil PRN 1st COVID-19 test negative Marky Go MD February 29, 2020 13:30
[2020-02-29] MEDS ORDERED: D5 1/2NS 1000ml IV ONE ×2 (15:48→15:54)
[2020-02-29] MEDS ORDERED: Tubing IV Secondary IV ONE (15:54)
[2020-02-29] MEDS ORDERED: D5W 275ml ONE (15:54)
--- NOTE | 2020-02-29 17:12 | Cardiology Progress Note ---
Assessment/Plan Problem List: (1) Type 2 myocardial infarction (2) Nosocomial pneumonia (3) Suspected 2019 novel coronavirus infection (4) Acute respiratory failure (5) Severe sepsis Status: stable, unchanged Status Narrative Mild troponin elevation on admission, without ischemic ST segment changes or sx of chest pain. ECHO with no wall motion abnl and preserved EF c/w type 2 HI - demand ischemia COVID 19 infection ( first test negative) Klebsiella sepsis/bacteremia Assessment/Plan Would start asa, statin, b berhane for CAD if no contraindication Management of sepsis per primary team Subjective ROS Limited/Unobtainable: Yes Subjective Cardiology for Dr Arzate Pt alert, in no respiratory distress Objective Last 24 Hour Vital Signs Date Time Temp Pulse Resp B/P (MAP) Pulse Ox O2 Delivery O2 Flow Rate FiO2 02/29/20 16:00 98.6 104 22 116/72 (87) 99 02/29/20 16:00 Room Air 02/29/20 12:00 Room Air 02/29/20 12:00 98.7 105 22 132/78 (96) 98 02/29/20 11:27 111 02/29/20 08:09 99 Nasal Cannula 3.0 32 02/29/20 08:00 Room Air 02/29/20 08:00 98.5 112 22 121/81 (94) 99 02/29/20 08:00 2.0 02/29/20 07:52 109 02/29/20 04:00 98.2 110 24 121/70 (87) 100 02/29/20 04:00 3.0 02/29/20 04:00 Nasal Cannula 3.0 02/29/20 03:41 114 02/29/20 01:00 102 24 148/73 (98) 100 02/29/20 00:00 Nasal Cannula 3.0 02/29/20 00:00 3.0 02/29/20 00:00 98.8 108 25 153/71 (98) 100 02/28/20 23:01 115 02/28/20 23:00 110 22 165/73 (103) 100 02/28/20 22:00 120 27 150/75 (100) 98 02/28/20 21:00 116 24 144/80 (101) 100 02/28/20 20:09 100 Nasal Cannula 3.0 32 02/28/20 20:06 115 02/28/20 20:00 3.0 02/28/20 20:00 98.7 114 22 143/84 (103) 100 02/28/20 20:00 Nasal Cannula 3.0 02/28/20 19:00 114 26 151/74 (99) 100 02/28/20 18:00 114 25 150/70 (96) 99 General Appearance: no apparent distress, alert - exam deferred- pt on COVID isolation Intake and Output 02/28/20 02/29/20 19:00 07:00 Intake Total 1495.000 ml 720 ml Output Total 1215 ml 620 ml Balance 280.000 ml 100 ml IV Total 1335.000 ml 660 ml Tube Feeding 0 ml 0 ml Other 160 ml 60 ml Output Urine Total 1115 ml 580 ml Stool Total 100 ml 40 ml # Bowel Movements 2 Laboratory Tests Test 02/29/20 05:00 White Blood Count 26.5 K/UL (4.8-10.8) *H Red Blood Count 3.45 M/UL (4.70-6.10) L Hemoglobin 11.2 G/DL (14.2-18.0) L Hematocrit 31.4 % (42.0-52.0) L Mean Corpuscular Volume 91 FL (80-99) Mean Corpuscular Hemoglobin 32.5 PG (27.0-31.0) H Mean Corpuscular Hemoglobin Concent 35.8 G/DL (32.0-36.0) Red Cell Distribution Width 11.3 % (11.6-14.8) L Platelet Count 167 K/UL (150-450) Mean Platelet Volume 7.0 FL (6.5-10.1) Neutrophils (%) (Auto) % (45.0-75.0) Lymphocytes (%) (Auto) % (20.0-45.0) Monocytes (%) (Auto) % (1.0-10.0) Eosinophils (%) (Auto) % (0.0-3.0) Basophils (%) (Auto) % (0.0-2.0) Differential Total Cells Counted 100 Neutrophils % (Manual) 77 % (45-75) H Lymphocytes % (Manual) 3 % (20-45) L Monocytes % (Manual) 3 % (1-10) Eosinophils % (Manual) 0 % (0-3) Basophils % (Manual) 0 % (0-2) Band Neutrophils 17 % (0-8) H Platelet Estimate Adequate Platelet Morphology Normal Red Blood Cell Morphology Normal Sodium Level 141 MMOL/L (136-145) Potassium Level 3.8 MMOL/L (3.5-5.1) Chloride Level 105 MMOL/L (98-107) Carbon Dioxide Level 23 MMOL/L (21-32) Anion Gap 13 mmol/L (5-15) Blood Urea Nitrogen 23 mg/dL (7-18) H Creatinine 1.0 MG/DL (0.55-1.30) Estimat Glomerular Filtration Rate > 60 mL/min (>60) Glucose Level 78 MG/DL (74-106) Calcium Level 8.5 MG/DL (8.5-10.1) Phosphorus Level 2.0 MG/DL (2.5-4.9) L Magnesium Level 2.0 MG/DL (1.8-2.4) Total Bilirubin 0.4 MG/DL (0.2-1.0) Aspartate Amino Transf (AST/SGOT) 24 U/L (15-37) Alanine Aminotransferase (ALT/SGPT) 18 U/L (12-78) Alkaline Phosphatase 101 U/L (46-116) Total Protein 5.7 G/DL (6.4-8.2) L Albumin 2.0 G/DL (3.4-5.0) L Globulin 3.7 g/dL Albumin/Globulin Ratio 0.5 (1.0-2.7) L Microbiology Date/Time Source Procedure Growth Status 02/27/20 03:30 Blood Blood Culture - Final Klebsiella Pneumoniae Esbl Complete 02/27/20 03:15 Blood Blood Culture - Final Klebsiella Pneumoniae Esbl Complete 02/27/20 15:50 Sputum Gram Stain - Final Resulted 02/27/20 15:50 Sputum Culture - Preliminary Gram Negative Juan Resulted 02/27/20 04:20 Nasopharynx Coronavirus COVID-19 PCR (TUNG) - Final Complete 02/28/20 14:30 Stool Clostridium difficile Toxin Assay - Final Complete Yara Keller MD February 29, 2020 17:12
--- NOTE | 2020-02-29 19:11 | NUR ---
NURSE NOTES: Received patient from ASAD Curry.
--- NOTE | 2020-02-29 19:14 | NUR ---
HAND-OFF: Report given to ASAD Monterroso. Pt remains stable.
--- NOTE | 2020-02-29 19:20 | NUR ---
NURSE NOTES: Received patient resting in bed with no distress noted at this time. Patient is on 3L via nasal cannula with no respiratory distress noted. G-tube intact, secured with Jevity 1.2 feeding running at 30cc/hour with goal of 60cc/hour. Rectal tube in place. Vargas in place, patent, and draining yellow colored urine. Left EJ 18G clean, intact, patent, and asymptomatic. Will continue to monitor. Bed at lowest position and brakes engaged. Bed alarm on. Call light within reach. Addendum: 02/29/20 at 1942 by SULY MURPHY RN Edit: Patient is on room air with no respiratory distress noted at this time.
[2020-02-29] MEDS ORDERED: Dyna-Hex 2% Top Sol 2oz TOPIC SCH ×2 (20:00)
[2020-02-29] MEDS: Acetaminophen 650mg/20.3ml NG PRN (20:45)
--- NOTE | 2020-02-29 21:00 | NUR ---
NURSE NOTES: No residual noted at this time. Patient's feeding is increased from 30cc/hr to 45cc/hr. Will continue to monitor.
[2020-03-01] VITALS: BP 139/97
[2020-03-01] MEDS: Meropenem 1 GM in NS 55 ML IVPB SCH ×3 (00:30→17:40)
--- NOTE | 2020-03-01 00:53 | NUR ---
NURSE NOTES: Patient's residual for tube feeding was more than 250 ml. G-tubing feeding stopped and turned off. Will continue to monitor.
[2020-03-01] MEDS: Vancomycin 750 MG in NS 275 ML IVPB SCH (03:08)
[2020-03-01 04:00] VITALS: BP 149/89
[2020-03-01 05:34] LABS: HEMATOCRIT 29.4 % (42.0-52.0); HEMOGLOBIN 10.6 G/DL (14.2-18.0); MEAN CORPUSCULAR VOLUME 90 FL (80-99); PLATELET COUNT 191 K/UL (150-450); RED BLOOD COUNT 3.25 M/UL (4.70-6.10); RED CELL DISTRIBUTION WIDTH 11.3 % (11.6-14.8); WHITE BLOOD COUNT 20.2 K/UL (4.8-10.8)
[2020-03-01 05:38] LABS: ANION GAP 6 mmol/L (5-15); BLOOD UREA NITROGEN 17 mg/dL (7-18); CALCIUM 8.3 MG/DL (8.5-10.1); CARBON DIOXIDE 30 MMOL/L (21-32); CHLORIDE 105 MMOL/L (98-107); SODIUM 142 MMOL/L (136-145)
[2020-03-01 05:59] LABS: POTASSIUM 2.7 MMOL/L (3.5-5.1)
--- NOTE | 2020-03-01 06:48 | NUR ---
NURSE NOTES: Left message to regarding K 2.7 and feeding not tolerable. Awaiting for call back.
[2020-03-01] MEDS ORDERED: Lidocaine 1% Plain 30 ml INJ PRN ×2 (07:00)
[2020-03-01] MEDS ORDERED: Heparin1,000 units/500ml Premix(Conc:2 units/ml) IV PRN ×2 (07:00)
--- NOTE | 2020-03-01 07:33 | NUR ---
HAND-OFF: Report given to ASAD Curry.
--- NOTE | 2020-03-01 07:33 | NUR ---
NURSE NOTES: Received report from ASAD Monterroso. Pt in bed awake and unable to make needs known, non-verbal. IV site in LEJ 18G running with D5 1/2NS @50ml/hr patent and asymptomatic. On room air. Side railsx3 up for safety. Call light within easy reach. HOB elevated with 45 degree. G-tube site intact and feeding on hold due to residual greater than 100ml. Will continue to plan of care
[2020-03-01] MEDS ORDERED: Metoclopramide 10mg/2ml Inj IVP PRN (07:45)
[2020-03-01] MEDS: Azithromycin 500 MG in D5W 275 ML IV SCH (07:59)
[2020-03-01 08:00] VITALS: BP 131/90
[2020-03-01] MEDS: Valproic Acid 250mg/5ml Liquid NG SCH ×2 (08:46→20:25)
[2020-03-01] MEDS: Lactobacillus-GG tablet ORAL SCH ×2 (08:46→17:41)
[2020-03-01] MEDS: levETIRAcetam 500mg/5ml Liquid NG SCH ×2 (08:47→20:26)
[2020-03-01] MEDS: Enoxaparin 40mg Inj SUBQ SCH (08:50)
--- NOTE | 2020-03-01 09:00 | NUR ---
NURSE NOTES: Noted residual of GT feeding with 5cc. Jevity 1.2 resumed at 20ml/hr. Will continue to monitor of tolerance
[2020-03-01] MEDS: Nystatin Powder 100,000 units/gm 15gm TOPIC SCH ×3 (09:01→17:41)
--- NOTE | 2020-03-01 10:01 | NUR ---
RADIOLOGY DEPT., CHEST X-RAY DONE.-P.DYE
--- NOTE | 2020-03-01 10:10 | Diagnostic Imaging Report ---
Procedure: XRAY Chest 1v Reason for study: Reason For Exam: SOB Comparison films: 02/28/2020. FINDINGS: A single one view chest is obtained. Vascularity is normal. Bibasilar infiltrates noted with slight worsening in left lung base. Cardiac and mediastinal silhouette are within normal limits. There may be trace left effusion. The bony thorax appear unremarkable. IMPRESSION: Slight worsening of bibasilar infiltrates.
--- NOTE | 2020-03-01 10:26 | Pulmonology Progress Note ---
Subjective ROS Limited/Unobtainable: Yes Allergies: Coded Allergies: DIPHENHYDRAMINE (Verified Allergy, Unknown, 02/27/20) Subjective in [facility] leukocytosis with trend down, fevers at night, currently no fevers positive BCX and SCX CXR 03/01 Slight worsening of bibasilar infiltrates. Objective Last 24 Hour Vital Signs Date Time Temp Pulse Resp B/P (MAP) Pulse Ox O2 Delivery O2 Flow Rate FiO2 03/01/20 08:00 Room Air 03/01/20 08:00 92 03/01/20 08:00 98.9 84 22 131/90 (104) 99 03/01/20 04:00 Room Air 03/01/20 04:00 113 03/01/20 04:00 99.1 90 22 149/89 (109) 99 03/01/20 00:00 Room Air 03/01/20 00:00 99.3 89 23 139/97 (111) 99 02/29/20 23:56 90 02/29/20 21:15 99.8 02/29/20 20:02 99 Room Air 21 02/29/20 20:00 Room Air 02/29/20 20:00 100.0 100 22 120/74 (89) 99 02/29/20 19:18 90 02/29/20 16:00 104 02/29/20 16:00 98.6 104 22 116/72 (87) 99 02/29/20 16:00 Room Air 02/29/20 12:00 Room Air 02/29/20 12:00 98.7 105 22 132/78 (96) 98 02/29/20 11:27 111 Intake and Output 02/29/20 03/01/20 19:00 07:00 Intake Total 1530.000 ml 1160.000 ml Output Total 1200 ml Balance 1530.000 ml -40.000 ml Free Water 150 ml 60 ml IV Total 1210.000 ml 830.000 ml Tube Feeding 170 ml 210 ml Other 60 ml Output Urine Total 1200 ml General Appearance: no acute distress HEENT: normocephalic, atraumatic, anicteric Respiratory: rhonchi - bilaterally Cardiovascular: tachycardia Abdomen: normal bowel sounds, soft, non tender Extremities: no edema, pedal pulses normal Neurologic: abnormal gait, other - poorly responsive Musculoskeletal: atrophy - BLE Microbiology Date/Time Source Procedure Growth Status 02/27/20 15:50 Sputum Gram Stain - Final Complete 02/27/20 15:50 Sputum Culture - Final Klebsiella Pneumoniae Esbl Complete 02/28/20 14:30 Stool Clostridium difficile Toxin Assay - Final Complete 02/28/20 14:30 Catheter Site Catheter Tip Culture - Preliminary NO GROWTH Resulted Laboratory Tests 03/01/20 04:00: White Blood Count 20.2H, Red Blood Count 3.25L, Hemoglobin 10.6L, Hematocrit 29.4L, Mean Corpuscular Volume 90, Mean Corpuscular Hemoglobin 32.4H, Mean Corpuscular Hemoglobin Concent 35.9, Red Cell Distribution Width 11.3L, Platelet Count 191, Mean Platelet Volume 7.2, Neutrophils (%) (Auto) , Lymphocytes (%) (Auto) , Monocytes (%) (Auto) , Eosinophils (%) (Auto) , Basophils (%) (Auto) , Differential Total Cells Counted 100, Neutrophils % ( Manual) 78H, Lymphocytes % (Manual) 6L, Monocytes % (Manual) 4, Eosinophils % ( Manual) 0, Basophils % (Manual) 0, Band Neutrophils 12H, Platelet Estimate Adequate, Platelet Morphology Normal, Red Blood Cell Morphology Normal, Sodium Level 142, Potassium Level 2.7*L, Chloride Level 105, Carbon Dioxide Level 30, Anion Gap 6, Blood Urea Nitrogen 17, Creatinine 1.0, Estimat Glomerular Filtration Rate > 60, Glucose Level 110H, Calcium Level 8.3L, TB Test (T-Spot) [ Pending], TB Test Nil Control (T-Spot) [Pending], TB Test Panel A (T-Spot) [ Pending], TB Test Panel B (T-Spot) [Pending], TB Test Positive Control (T-Spot) [Pending] Current Medications Medications (Trade) Dose Ordered Sig/Damion Route PRN Reason Start Time Stop Time Status Last Admin Dose Admin Acetaminophen (Tylenol) 650 mg Q4H PRN NG Temp >100.5 02/29/20 02:30 03/28/20 06:29 02/29/20 20:45 Acetaminophen (Tylenol) 650 mg Q4H PRN ORAL fever 02/29/20 02:28 03/28/20 02:27 Albuterol Sulfate (Proventil) 2.5 mg Q4H PRN HHN Shortness of Breath 02/29/20 11:26 03/05/20 11:25 Azithromycin 500 mg/Dextrose 275 ml @ 275 mls/hr Q24HRS IV 02/29/20 08:00 03/02/20 08:59 03/01/20 07:59 Dextrose/Sodium Chloride 1,000 ml @ 50 mls/hr Q20H IV 02/29/20 03:00 03/28/20 02:59 02/29/20 23:00 Enoxaparin Sodium (Lovenox) 40 mg DAILY SUBQ 02/29/20 09:00 05/27/20 08:59 03/01/20 08:50 Heparin Sodium/ Sodium Chloride (Heparin 1000 units/500ml Premix) 1,000 unit ONCE PRN IV picc line placement 03/01/20 07:00 03/03/20 06:59 Lactobacillus Acidophilus (Culturelle) 1 tab TWICE A DAY ORAL 02/29/20 13:00 05/29/20 12:59 03/01/20 08:46 Levetiracetam (Keppra) 700 mg Q12HR NG 02/29/20 09:00 03/28/20 08:59 03/01/20 08:47 Lidocaine HCl (Xylocaine 1% 30ml) 30 ml ONCE PRN INJ picc line placement 03/01/20 07:00 03/03/20 06:59 Loperamide HCl (Imodium) 2 mg Q6H PRN GT Diarrhea 02/29/20 12:45 03/30/20 12:44 03/01/20 08:48 Meropenem 1 gm/ Sodium Chloride 55 ml @ 110 mls/hr Q8H IVPB 02/29/20 09:00 03/03/20 16:59 03/01/20 08:02 Metoclopramide HCl (Reglan) 10 mg Q6H PRN IVP Nausea & Vomiting 03/01/20 07:45 03/31/20 07:44 03/01/20 08:48 Midodrine (Pro-Amatine) 10 mg Q8H PRN ORAL SBP <95 02/29/20 02:34 05/27/20 02:33 Nitroglycerin (Ntg) 0.4 mg Q5M PRN SL Prn Chest Pain 02/29/20 02:20 03/28/20 07:59 Nystatin (Nystop Powder) 1 applic THREE TIMES A DAY TOPIC 02/29/20 09:00 05/27/20 12:59 03/01/20 09:01 Ondansetron HCl (Zofran) 4 mg Q6H PRN IVP Nausea & Vomiting 02/29/20 02:36 03/28/20 02:35 Polyethylene Glycol (Miralax) 17 gm DAILYPRN PRN ORAL Constipation 02/29/20 02:36 03/28/20 02:35 Potassium Chloride 100 ml @ 100 mls/hr Q1HR IVPB 03/01/20 08:00 03/01/20 11:59 03/01/20 09:01 Promethazine HCl/ Codeine (Phenergan with Codeine) 5 ml Q4H PRN ORAL For Cough 02/29/20 02:36 03/28/20 02:35 Risperidone (RisperDAL) 0.5 mg BIDPRN PRN ORAL mood/psychosis 02/29/20 02:37 04/12/20 02:36 Valproic Acid (Depakene) 250 mg BID@0900,2100 NG 02/29/20 09:00 03/30/20 08:59 03/01/20 08:46 Vancomycin HCl (Vanco rx to dose) 1 ea DAILY PRN MISC Per rx protocol 02/29/20 09:00 03/28/20 06:29 Vancomycin HCl 750 mg/Sodium Chloride 275 ml @ 183.333 mls/hr Q12H IVPB 02/29/20 04:00 03/03/20 15:59 03/01/20 03:08 Vitamin D (Vitamin D) 5,000 intlu QWEEK ORAL 03/05/20 09:00 03/28/20 08:59 Assessment/Plan Assessment/Plan ASSESSMENT Severe sepsis with KP ESBL bacteremia Acute hypoxemic respiratory failure requiring NRM-resolved Bilateral pneumonia KP ESBL Leukocytosis, possible aspiration Suspected COVID-19 infection-ruled out Elevated d-Dimer Dysphagia, feeding by G-tube Elevated troponin Seizure disorder Princess intertrigo Diarrhea /C dif NGT PLAN OF CARE in [place] titrate O2 to keep sat above 92% ; pulmonary toilet keep in isolation f/up with SARS-CoV-2 by PCR 02/26 not defected, repeat another one 02/28 and keep in isolation for now abx per ID BCX +ESBL Klebsiella pneumonia, SCX + ESBL KP PICC line was dc, cath tip prel no growth started on zinc and vit C CXR 02/27 with persistent infiltrates in bilateral perihilar regions and medial lung bases, which may represent pulmonary edema versus pneumonia CRP up to 32 on CXR 03/01 Slight worsening of bibasilar infiltrates. C dif NGT, on lactobacilli, rectal tube, Lomotil prn IVF, midodrine as needed for BP support troponin trended down to normal Echo with EF 55% Venous duplex BLE pending DVT prophylaxis seizure precaution , continue Keppra Nystatin cream strict aspiration precaution ; G-tube feeding, monitor tolerance supportive care full code case discussed and evaluated by supervising physician Erika Kaufman NP March 01, 2020 10:26
--- NOTE | 2020-03-01 11:30 | NUR ---
NURSE NOTES: Noted 100ml of residual from G-tube feeding. Feeding held now. Made Dr. Go aware.
--- NOTE | 2020-03-01 11:44 | Infectious Diseases Prog Note ---
Assessment/Plan Assessment/Plan Assessment: Severe Sepsis Acute hypoxic respiratory failure sp NRB- now at [facility] PNA r/o COVID19- 1st sample neg ESBL K.pna bacteremia -CXR: Basilar infiltrates. -Bcx 3/ ESBL K.pna (S Levo, Meropenem, ZOsyn) -sp cx ESBL K.pna -02/27 sp removal PICC Line; cath tip cx NTD -02/26 SARS-COV2 pCR neg -legionella ag urine neg Fever; fever curve improving Leukocytosis; improving -u/a no pyuria -Cdiff neg Lactic acidosis, SP Princess intertrigo muscle weakness and atrophy (not characterized) psychiatric disorder dysphagia s/p [facility] PA resident (recently transferred from [facility] to [facility]) Plan: -Dc empiric IV Vancomycin, and azithromycin #4 - Continue Meropenem #4/-14 02/27/20 SP Zosyn #1, CEfepime x1, FLagyl x1 -f/u cx -Monitor CBC/CMP, temperatures -COVID19 isolation and testing; await 2nd sample -aspiration precautions -Bcx x2 Thank you for consulting [facility]. Will continue to follow along wiht you. Subjective Allergies: Coded Allergies: DIPHENHYDRAMINE (Verified Allergy, Unknown, 02/27/20) Subjective TM 100 at RA wbc improving Objective Vital Signs Last 24 Hour Vital Signs Date Time Temp Pulse Resp B/P (MAP) Pulse Ox O2 Delivery O2 Flow Rate FiO2 03/01/20 08:00 Room Air 03/01/20 08:00 92 03/01/20 08:00 98.9 84 22 131/90 (104) 99 03/01/20 04:00 Room Air 03/01/20 04:00 113 03/01/20 04:00 99.1 90 22 149/89 (109) 99 03/01/20 00:00 Room Air 03/01/20 00:00 99.3 89 23 139/97 (111) 99 02/29/20 23:56 90 02/29/20 21:15 99.8 02/29/20 20:02 99 Room Air 21 02/29/20 20:00 Room Air 02/29/20 20:00 100.0 100 22 120/74 (89) 99 02/29/20 19:18 90 02/29/20 16:00 104 02/29/20 16:00 98.6 104 22 116/72 (87) 99 02/29/20 16:00 Room Air 02/29/20 12:00 Room Air 02/29/20 12:00 98.7 105 22 132/78 (96) 98 Height (Feet): 5 Height (Inches): 5.00 Weight (Pounds): 150 Microbiology Date/Time Source Procedure Growth Status 02/27/20 15:50 Sputum Gram Stain - Final Complete 02/27/20 15:50 Sputum Culture - Final Klebsiella Pneumoniae Esbl Complete 02/28/20 14:30 Stool Clostridium difficile Toxin Assay - Final Complete 02/28/20 14:30 Catheter Site Catheter Tip Culture - Preliminary NO GROWTH Resulted Laboratory Tests Test 03/01/20 04:00 White Blood Count 20.2 K/UL (4.8-10.8) H Red Blood Count 3.25 M/UL (4.70-6.10) L Hemoglobin 10.6 G/DL (14.2-18.0) L Hematocrit 29.4 % (42.0-52.0) L Mean Corpuscular Volume 90 FL (80-99) Mean Corpuscular Hemoglobin 32.4 PG (27.0-31.0) H Mean Corpuscular Hemoglobin Concent 35.9 G/DL (32.0-36.0) Red Cell Distribution Width 11.3 % (11.6-14.8) L Platelet Count 191 K/UL (150-450) Mean Platelet Volume 7.2 FL (6.5-10.1) Neutrophils (%) (Auto) % (45.0-75.0) Lymphocytes (%) (Auto) % (20.0-45.0) Monocytes (%) (Auto) % (1.0-10.0) Eosinophils (%) (Auto) % (0.0-3.0) Basophils (%) (Auto) % (0.0-2.0) Differential Total Cells Counted 100 Neutrophils % (Manual) 78 % (45-75) H Lymphocytes % (Manual) 6 % (20-45) L Monocytes % (Manual) 4 % (1-10) Eosinophils % (Manual) 0 % (0-3) Basophils % (Manual) 0 % (0-2) Band Neutrophils 12 % (0-8) H Platelet Estimate Adequate Platelet Morphology Normal Red Blood Cell Morphology Normal Sodium Level 142 MMOL/L (136-145) Potassium Level 2.7 MMOL/L (3.5-5.1) *L Chloride Level 105 MMOL/L (98-107) Carbon Dioxide Level 30 MMOL/L (21-32) Anion Gap 6 mmol/L (5-15) Blood Urea Nitrogen 17 mg/dL (7-18) Creatinine 1.0 MG/DL (0.55-1.30) Estimat Glomerular Filtration Rate > 60 mL/min (>60) Glucose Level 110 MG/DL (74-106) H Calcium Level 8.3 MG/DL (8.5-10.1) L TB Test (T-Spot) Pending TB Test Nil Control (T-Spot) Pending TB Test Panel A (T-Spot) Pending TB Test Panel B (T-Spot) Pending TB Test Positive Control (T-Spot) Pending Current Medications Medications (Trade) Dose Ordered Sig/Damion Route PRN Reason Start Time Stop Time Status Last Admin Dose Admin Acetaminophen (Tylenol) 650 mg Q4H PRN NG Temp >100.5 02/29/20 02:30 03/28/20 06:29 02/29/20 20:45 Acetaminophen (Tylenol) 650 mg Q4H PRN ORAL fever 02/29/20 02:28 03/28/20 02:27 Albuterol Sulfate (Proventil) 2.5 mg Q4H PRN HHN Shortness of Breath 02/29/20 11:26 03/05/20 11:25 Azithromycin 500 mg/Dextrose 275 ml @ 275 mls/hr Q24HRS IV 02/29/20 08:00 03/02/20 08:59 03/01/20 07:59 Dextrose/Sodium Chloride 1,000 ml @ 50 mls/hr Q20H IV 02/29/20 03:00 03/28/20 02:59 02/29/20 23:00 Enoxaparin Sodium (Lovenox) 40 mg DAILY SUBQ 02/29/20 09:00 05/27/20 08:59 03/01/20 08:50 Heparin Sodium/ Sodium Chloride (Heparin 1000 units/500ml Premix) 1,000 unit ONCE PRN IV picc line placement 03/01/20 07:00 03/03/20 06:59 Lactobacillus Acidophilus (Culturelle) 1 tab TWICE A DAY ORAL 02/29/20 13:00 05/29/20 12:59 03/01/20 08:46 Levetiracetam (Keppra) 700 mg Q12HR NG 02/29/20 09:00 03/28/20 08:59 03/01/20 08:47 Lidocaine HCl (Xylocaine 1% 30ml) 30 ml ONCE PRN INJ picc line placement 03/01/20 07:00 03/03/20 06:59 Loperamide HCl (Imodium) 2 mg Q6H PRN GT Diarrhea 02/29/20 12:45 03/30/20 12:44 03/01/20 08:48 Meropenem 1 gm/ Sodium Chloride 55 ml @ 110 mls/hr Q8H IVPB 02/29/20 09:00 03/03/20 16:59 03/01/20 08:02 Metoclopramide HCl (Reglan) 10 mg Q6H PRN IVP Nausea & Vomiting 03/01/20 07:45 03/31/20 07:44 03/01/20 08:48 Midodrine (Pro-Amatine) 10 mg Q8H PRN ORAL SBP <95 02/29/20 02:34 05/27/20 02:33 Nitroglycerin (Ntg) 0.4 mg Q5M PRN SL Prn Chest Pain 02/29/20 02:20 03/28/20 07:59 Nystatin (Nystop Powder) 1 applic THREE TIMES A DAY TOPIC 02/29/20 09:00 05/27/20 12:59 03/01/20 09:01 Ondansetron HCl (Zofran) 4 mg Q6H PRN IVP Nausea & Vomiting 02/29/20 02:36 03/28/20 02:35 Polyethylene Glycol (Miralax) 17 gm DAILYPRN PRN ORAL Constipation 02/29/20 02:36 03/28/20 02:35 Potassium Chloride 100 ml @ 100 mls/hr Q1HR IVPB 03/01/20 08:00 03/01/20 11:59 03/01/20 10:48 Promethazine HCl/ Codeine (Phenergan with Codeine) 5 ml Q4H PRN ORAL For Cough 02/29/20 02:36 03/28/20 02:35 Risperidone (RisperDAL) 0.5 mg BIDPRN PRN ORAL mood/psychosis 02/29/20 02:37 04/12/20 02:36 Valproic Acid (Depakene) 250 mg BID@0900,2100 NG 02/29/20 09:00 03/30/20 08:59 03/01/20 08:46 Vancomycin HCl (Vanco rx to dose) 1 ea DAILY PRN MISC Per rx protocol 02/29/20 09:00 03/28/20 06:29 Vancomycin HCl 750 mg/Sodium Chloride 275 ml @ 183.333 mls/hr Q12H IVPB 02/29/20 04:00 03/03/20 15:59 03/01/20 03:08 Vitamin D (Vitamin D) 5,000 intlu QWEEK ORAL 03/05/20 09:00 03/28/20 08:59 Charlene Stokes M.D. March 01, 2020 11:44
[2020-03-01 12:00] VITALS: BP 128/88
--- NOTE | 2020-03-01 15:47 | NUR ---
CASE MANAGEMENT: REVIEW SI: COVID-19 R/O . ESBL K.PNA BACTEREMIA PICC LINE CATH REMOVED TIP CX 02/27 CXR -- SLIGHT WORSENING OF BIBASILAR INFILTRATES T 99.1 HR 113 RR 22 BP 149/89 SAT 99% ROOM AIR WBC 20.2 K 2.7 IS: D5 NS IVF @ 50ML/HR MEROPENEM IV Q8HR LOVENOX SUBQ QD STEP DOWN UNIT STATUS DCP: PATIENT IS FROM [facility]
[2020-03-01 16:00] VITALS: BP 134/71
--- NOTE | 2020-03-01 17:12 | Pre-Procedure Note/Attestation ---
Pre-Procedure Note/Attestation Complete Prior to Procedure Planned Procedure: not applicable Procedure Narrative: PICC line placement Indications for Procedure Pre-Operative Diagnosis: need IV access Attestation consent obtained by primary team. this was confirmed prior to the procedure Tomasz De Paz M.D. March 01, 2020 17:12
--- NOTE | 2020-03-01 17:26 | Diagnostic Imaging Report ---
Indications: Needs long-term IV access Technique: Procedure performed at bedside. Procedural timeout performed. Ultrasound confirms patent compressible right basilic vein. Total sterile technique, including sterile probe cover and sterile gel, sterile gloves, hand hygiene, hat, mask,, sterile gown, large sterile drape, and preparation with 2% chlorhexidine utilized. Local anesthesia with 1% lidocaine. Under real-time ultrasound guidance, puncture basilic vein using 21-gauge needle, passage 0.018 guidewire, exchange for 5 Welsh peel-away sheath. 4 Welsh dual-lumen power PICC cut to 35 cm. It was inserted through the peel-away sheath. Peel-away sheath and guidewire removed. Catheter fixed to the skin. Both catheter ports aspirated and flushed. Patient tolerated procedure well, without immediate complication. Followup chest x-ray obtained, documents catheter tip position at the SVC Impression: Successful bedside placement of 4Fr double lumen PICC under sonographic guidance, as described above.
[2020-03-01] MEDS: D5 1/2NS 1,000 ML IV SCH (18:08)
--- NOTE | 2020-03-01 18:40 | Internal Med Progress Note ---
Subjective Date of Service: March 01, 2020 Physician Name AmeliaObey Attending Physician Marky Go MD Current Medications Medications (Trade) Dose Ordered Sig/Damion Route PRN Reason Start Time Stop Time Status Last Admin Dose Admin Acetaminophen (Tylenol) 650 mg Q4H PRN NG Temp >100.5 02/29/20 02:30 03/28/20 06:29 02/29/20 20:45 Acetaminophen (Tylenol) 650 mg Q4H PRN ORAL fever 02/29/20 02:28 03/28/20 02:27 Albuterol Sulfate (Proventil) 2.5 mg Q4H PRN HHN Shortness of Breath 02/29/20 11:26 03/05/20 11:25 Dextrose/Sodium Chloride 1,000 ml @ 50 mls/hr Q20H IV 02/29/20 03:00 03/28/20 02:59 03/01/20 18:08 Enoxaparin Sodium (Lovenox) 40 mg DAILY SUBQ 02/29/20 09:00 05/27/20 08:59 03/01/20 08:50 Heparin Sodium/ Sodium Chloride (Heparin 1000 units/500ml Premix) 1,000 unit ONCE PRN IV picc line placement 03/01/20 07:00 03/03/20 06:59 Lactobacillus Acidophilus (Culturelle) 1 tab TWICE A DAY ORAL 02/29/20 13:00 05/29/20 12:59 03/01/20 17:41 Levetiracetam (Keppra) 700 mg Q12HR NG 02/29/20 09:00 03/28/20 08:59 03/01/20 08:47 Lidocaine HCl (Xylocaine 1% 30ml) 30 ml ONCE PRN INJ picc line placement 03/01/20 07:00 03/03/20 06:59 Loperamide HCl (Imodium) 2 mg Q6H PRN GT Diarrhea 02/29/20 12:45 03/30/20 12:44 03/01/20 08:48 Meropenem 1 gm/ Sodium Chloride 55 ml @ 110 mls/hr Q8H IVPB 02/29/20 09:00 03/11/20 23:59 03/01/20 17:40 Metoclopramide HCl (Reglan) 10 mg Q6H PRN IVP Nausea & Vomiting 03/01/20 07:45 03/31/20 07:44 03/01/20 08:48 Midodrine (Pro-Amatine) 10 mg Q8H PRN ORAL SBP <95 02/29/20 02:34 05/27/20 02:33 Nitroglycerin (Ntg) 0.4 mg Q5M PRN SL Prn Chest Pain 02/29/20 02:20 03/28/20 07:59 Nystatin (Nystop Powder) 1 applic THREE TIMES A DAY TOPIC 02/29/20 09:00 05/27/20 12:59 03/01/20 17:41 Ondansetron HCl (Zofran) 4 mg Q6H PRN IVP Nausea & Vomiting 02/29/20 02:36 03/28/20 02:35 Polyethylene Glycol (Miralax) 17 gm DAILYPRN PRN ORAL Constipation 02/29/20 02:36 03/28/20 02:35 Promethazine HCl/ Codeine (Phenergan with Codeine) 5 ml Q4H PRN ORAL For Cough 02/29/20 02:36 03/28/20 02:35 Risperidone (RisperDAL) 0.5 mg BIDPRN PRN ORAL mood/psychosis 02/29/20 02:37 04/12/20 02:36 Valproic Acid (Depakene) 250 mg BID@0900,2100 NG 02/29/20 09:00 03/30/20 08:59 03/01/20 08:46 Vitamin D (Vitamin D) 5,000 intlu QWEEK ORAL 03/05/20 09:00 03/28/20 08:59 Allergies: Coded Allergies: DIPHENHYDRAMINE (Verified Allergy, Unknown, 02/27/20) ROS Limited/Unobtainable: Yes Subjective 59 YO M admitted with respiratory failure. Now Sepsis. Cover for Int Faraz-Dr Go Objective Last Vital Signs Date Time Temp Pulse Resp B/P (MAP) Pulse Ox O2 Delivery O2 Flow Rate FiO2 03/01/20 16:00 98.8 89 22 134/71 (92) 98 03/01/20 16:00 Room Air 02/29/20 20:02 21 02/29/20 08:09 3.0 Skin: no diaphoresis Laboratory Tests Test 03/01/20 04:00 White Blood Count 20.2 K/UL (4.8-10.8) H Red Blood Count 3.25 M/UL (4.70-6.10) L Hemoglobin 10.6 G/DL (14.2-18.0) L Hematocrit 29.4 % (42.0-52.0) L Mean Corpuscular Volume 90 FL (80-99) Mean Corpuscular Hemoglobin 32.4 PG (27.0-31.0) H Mean Corpuscular Hemoglobin Concent 35.9 G/DL (32.0-36.0) Red Cell Distribution Width 11.3 % (11.6-14.8) L Platelet Count 191 K/UL (150-450) Mean Platelet Volume 7.2 FL (6.5-10.1) Neutrophils (%) (Auto) % (45.0-75.0) Lymphocytes (%) (Auto) % (20.0-45.0) Monocytes (%) (Auto) % (1.0-10.0) Eosinophils (%) (Auto) % (0.0-3.0) Basophils (%) (Auto) % (0.0-2.0) Differential Total Cells Counted 100 Neutrophils % (Manual) 78 % (45-75) H Lymphocytes % (Manual) 6 % (20-45) L Monocytes % (Manual) 4 % (1-10) Eosinophils % (Manual) 0 % (0-3) Basophils % (Manual) 0 % (0-2) Band Neutrophils 12 % (0-8) H Platelet Estimate Adequate Platelet Morphology Normal Red Blood Cell Morphology Normal Sodium Level 142 MMOL/L (136-145) Potassium Level 2.7 MMOL/L (3.5-5.1) *L Chloride Level 105 MMOL/L (98-107) Carbon Dioxide Level 30 MMOL/L (21-32) Anion Gap 6 mmol/L (5-15) Blood Urea Nitrogen 17 mg/dL (7-18) Creatinine 1.0 MG/DL (0.55-1.30) Estimat Glomerular Filtration Rate > 60 mL/min (>60) Glucose Level 110 MG/DL (74-106) H Calcium Level 8.3 MG/DL (8.5-10.1) L TB Test (T-Spot) Pending TB Test Nil Control (T-Spot) Pending TB Test Panel A (T-Spot) Pending TB Test Panel B (T-Spot) Pending TB Test Positive Control (T-Spot) Pending Microbiology Date/Time Source Procedure Growth Status 02/28/20 14:30 Stool Clostridium difficile Toxin Assay - Final Complete 02/28/20 14:30 Catheter Site Catheter Tip Culture - Preliminary NO GROWTH Resulted Intake and Output 02/29/20 03/01/20 19:00 07:00 Intake Total 1530.000 ml 1160.000 ml Output Total 1200 ml Balance 1530.000 ml -40.000 ml Free Water 150 ml 60 ml IV Total 1210.000 ml 830.000 ml Tube Feeding 170 ml 210 ml Other 60 ml Output Urine Total 1200 ml Objective Objective GENERAL: Patient chronically ill-looking, not distress, on Room air sat 98%. HEAD AND NECK: Pupils are equal and reactive to light. Anicteric. Neck was supple. No JVD. LUNGS: Good air entry. No wheezing or rales. Decreased air in bases. HEART: S1, S2. Tachycardic. No murmur or gallop. ABDOMEN: Soft, nondistended, nontender. PEG site is clean. EXTREMITIES: No cyanosis or clubbing. Mildly edematous in the upper extremity. Right upper extremity has a PICC line. NEUROLOGIC: Very limited secondary to patient's status. Patient is moving all extremities spontaneously slowly; cranial nerves II through XII is limited evaluation. RECTAL/GENITOURINARY: Refused and deferred. PSYCHIATRIC: Mood and affect unable to obtain. Assessment/Plan Assessment/Plan Assessment/Plan Assessment/Plan Assessment/Plan ASSESSMENT: 1. Acute hypoxemic respiratory failure, possible COVID-19 infection. 2. Bilateral pneumonia. 3. Sepsis. 4. Severe dehydration. 5. Lactic acidosis. 6. Klebsiella ESBL bacteremia, possible line sepsis. 7. Dysphagia, status post PEG. 8. Psychiatric disorder. 9. halfway resident. 10. Elevated Troponin most likely due to Demand ischemia. PLAN: In [facility], COVID-[address] Hansen, Pulmonary Critical Care, Dr. Stokes from Infectious Disease, Dr. Barragan from Cardiology consultation. Abx: vancomycin and Meropenem IV Removed of the PICC line. Code status: Full Code. DVT prophylaxis: Lovenox Inj. Follow up with the laboratory as well as culture. Lomotil PRN 1st COVID-19 test negative Obey Cisneros MD March 01, 2020 18:40
--- NOTE | 2020-03-01 19:21 | Cardiology Progress Note ---
Assessment/Plan Assessment/Plan 1. Septic shock. 2. Respiratory insufficiency. 3. Lactic acidosis. 4. Abnormal cardiac enzymes, likely demand related. 5. kleb, bacteremia covid #1 neg wbc still sig elelvted k low cxr worsening infiltrate fever subsiding telel noted sinus Subjective ROS Limited/Unobtainable: Yes Objective Last 24 Hour Vital Signs Date Time Temp Pulse Resp B/P (MAP) Pulse Ox O2 Delivery O2 Flow Rate FiO2 03/01/20 16:00 98.8 89 22 134/71 (92) 98 03/01/20 16:00 Room Air 03/01/20 16:00 100 03/01/20 12:00 85 03/01/20 12:00 98.7 84 22 128/88 (101) 98 03/01/20 12:00 Room Air 03/01/20 08:00 Room Air 03/01/20 08:00 92 03/01/20 08:00 98.9 84 22 131/90 (104) 99 03/01/20 04:00 Room Air 03/01/20 04:00 113 03/01/20 04:00 99.1 90 22 149/89 (109) 99 03/01/20 00:00 Room Air 03/01/20 00:00 99.3 89 23 139/97 (111) 99 02/29/20 23:56 90 02/29/20 21:15 99.8 02/29/20 20:02 99 Room Air 21 02/29/20 20:00 Room Air 02/29/20 20:00 100.0 100 22 120/74 (89) 99 Intake and Output 02/29/20 03/01/20 19:00 07:00 Intake Total 1530.000 ml 1160.000 ml Output Total 1200 ml Balance 1530.000 ml -40.000 ml Free Water 150 ml 60 ml IV Total 1210.000 ml 830.000 ml Tube Feeding 170 ml 210 ml Other 60 ml Output Urine Total 1200 ml Laboratory Tests Test 03/01/20 04:00 White Blood Count 20.2 K/UL (4.8-10.8) H Red Blood Count 3.25 M/UL (4.70-6.10) L Hemoglobin 10.6 G/DL (14.2-18.0) L Hematocrit 29.4 % (42.0-52.0) L Mean Corpuscular Volume 90 FL (80-99) Mean Corpuscular Hemoglobin 32.4 PG (27.0-31.0) H Mean Corpuscular Hemoglobin Concent 35.9 G/DL (32.0-36.0) Red Cell Distribution Width 11.3 % (11.6-14.8) L Platelet Count 191 K/UL (150-450) Mean Platelet Volume 7.2 FL (6.5-10.1) Neutrophils (%) (Auto) % (45.0-75.0) Lymphocytes (%) (Auto) % (20.0-45.0) Monocytes (%) (Auto) % (1.0-10.0) Eosinophils (%) (Auto) % (0.0-3.0) Basophils (%) (Auto) % (0.0-2.0) Differential Total Cells Counted 100 Neutrophils % (Manual) 78 % (45-75) H Lymphocytes % (Manual) 6 % (20-45) L Monocytes % (Manual) 4 % (1-10) Eosinophils % (Manual) 0 % (0-3) Basophils % (Manual) 0 % (0-2) Band Neutrophils 12 % (0-8) H Platelet Estimate Adequate Platelet Morphology Normal Red Blood Cell Morphology Normal Sodium Level 142 MMOL/L (136-145) Potassium Level 2.7 MMOL/L (3.5-5.1) *L Chloride Level 105 MMOL/L (98-107) Carbon Dioxide Level 30 MMOL/L (21-32) Anion Gap 6 mmol/L (5-15) Blood Urea Nitrogen 17 mg/dL (7-18) Creatinine 1.0 MG/DL (0.55-1.30) Estimat Glomerular Filtration Rate > 60 mL/min (>60) Glucose Level 110 MG/DL (74-106) H Calcium Level 8.3 MG/DL (8.5-10.1) L TB Test (T-Spot) Pending TB Test Nil Control (T-Spot) Pending TB Test Panel A (T-Spot) Pending TB Test Panel B (T-Spot) Pending TB Test Positive Control (T-Spot) Pending Microbiology Date/Time Source Procedure Growth Status 02/28/20 14:30 Stool Clostridium difficile Toxin Assay - Final Complete 02/28/20 14:30 Catheter Site Catheter Tip Culture - Preliminary NO GROWTH Resulted Objective per pulm PA General Appearance: no acute distress HEENT: normocephalic, atraumatic, anicteric Respiratory: rhonchi - bilaterally Cardiovascular: tachycardia Abdomen: normal bowel sounds, soft, non tender Extremities: no edema, pedal pulses normal Antwon Arzate MD March 01, 2020 19:21
--- NOTE | 2020-03-01 19:39 | NUR ---
NURSE NOTES: Received report from Patricio RN, pt. in bed awake with eyes open- non-verbal, no signs or symptoms of acute cardiac or respiratory distress noted, bed alarm on, side rails up x's3 and safety brakes engaged, pt. appears to be sating well on room air-no distress noted, pt. has feeding via g tube for Jevity 60vv/hr- but is on hold due to high residuals- will continue to monitor pt., Patient has Vargas and rectal tube both intact and draining to gravity, pt. has FARIDEH PICC running D5 1/2NS at 50cc/hr- IV intact and patent, pt. appears to be resting comfortably, will continue to monitor pt. and with plan of care. Addendum: 03/01/20 at 1947 by SUSAN OSORIO RN RN side rails padded for seizure precautions- no seizure activity noted upon assessment.
--- NOTE | 2020-03-01 19:39 | NUR ---
HAND-OFF: Report given to ASAD Woodward. Pt remains stable.
[2020-03-01 20:00] VITALS: BP 133/74
[2020-03-01] MEDS ORDERED: Dyna-Hex 2% Top Sol 2oz TOPIC SCH (20:00)
[2020-03-02] VITALS: BP 146/90
[2020-03-02] MEDS: Meropenem 1 GM in NS 55 ML IVPB SCH ×2 (00:06→09:45)
[2020-03-02 04:00] VITALS: BP 138/69
--- NOTE | 2020-03-02 04:45 | NUR ---
NURSE NOTES: Per ASAD Justin, he will put an order for Procalcitonin level as it was auto cancelled.
[2020-03-02 05:26] LABS: BASOPHILS % (AUTO) 0.9 % (0.0-2.0); HEMATOCRIT 30.1 % (42.0-52.0); HEMOGLOBIN 10.8 G/DL (14.2-18.0); LYMPHOCYTES % (AUTO) 16.2 % (20.0-45.0); MEAN CORPUSCULAR VOLUME 89 FL (80-99); MONOCYTES % (AUTO) 7.9 % (1.0-10.0); NEUTROPHILS % (AUTO) 74.9 % (45.0-75.0); PLATELET COUNT 189 K/UL (150-450); RED BLOOD COUNT 3.36 M/UL (4.70-6.10); RED CELL DISTRIBUTION WIDTH 11.2 % (11.6-14.8); WHITE BLOOD COUNT 10.9 K/UL (4.8-10.8)
[2020-03-02 06:25] LABS: ANION GAP 7 mmol/L (5-15); BLOOD UREA NITROGEN 10 mg/dL (7-18); CALCIUM 8.2 MG/DL (8.5-10.1); CARBON DIOXIDE 32 MMOL/L (21-32); CHLORIDE 104 MMOL/L (98-107); CREATININE 0.8 MG/DL (0.55-1.30); SODIUM 144 MMOL/L (136-145)
[2020-03-02 06:36] LABS: POTASSIUM 2.7 MMOL/L (3.5-5.1)
--- NOTE | 2020-03-02 07:08 | NUR ---
NURSE NOTES: Received report from ASAD Woodward. Pt in bed awake and unable to make needs known. PICC in right upper arm with 2 lumens running with D5 NS @50ml/hr patent and asymptomatic. Call light within easy reach. Side railsx3 up for safety. G-tube site patent and asymptomatic, running Jevity 1.2@30ml/hr, will check the residual again. Bed in lowest position and locked. HOB elevated with 45 degree. Pt on room air, sating 98%. F/C intact and patent. Will continue to plan of care.
--- NOTE | 2020-03-02 07:08 | NUR ---
HAND-OFF: Report given to Min, RN, pt. remains stable and no signs of distress noted- am nurse will notify doctor of potassium 2.7 and any abnormal am labs.
[2020-03-02 07:15] VITALS: BP 134/78
[2020-03-02] MEDS: Lactobacillus-GG tablet ORAL SCH ×2 (09:45→18:00)
[2020-03-02] MEDS: Valproic Acid 250mg/5ml Liquid NG SCH ×2 (09:45→20:14)
[2020-03-02] MEDS: levETIRAcetam 500mg/5ml Liquid NG SCH ×2 (09:45→20:15)
[2020-03-02] MEDS: Enoxaparin 40mg Inj SUBQ SCH (09:46)
[2020-03-02] MEDS: Nystatin Powder 100,000 units/gm 15gm TOPIC SCH ×3 (09:46→19:18)
--- NOTE | 2020-03-02 09:48 | NUR ---
RD ASSESSMENT & RECOMMENDATIONS SEE CARE ACTIVITY FOR COMPLETE ASSESSMENT DAILY ESTIMATED NEEDS: Needs based on Pulmonary, wound/ 59kg 25-30 kcals/kg 7848-2762 total kcals 1.25-1.5 g protein/kg 73-88 g total protein 25-30 mL/kg 0861-7828 total fluid mLs NUTRITION DIAGNOSIS: Swallowing difficulty R/T dysphagia as evidenced by pt is PEG dependent. CURRENT TF:Jevity 1.2 @ 60ml/hr x 24 hrs ordered, currently running @ 30ml/hr ENTERAL NUTRITION RECOMMENDATIONS: Jevity 1.2 @ 60ml/hr x 24 hrs to provide 1440ml, 1728kcal, 80g prot, 1160ml free water * Advance 10ml q 4-6 hrs as tolerated to goal rate * HOB over 30 degrees * Without IVF, water flush of 150ml q 8 hrs ADDITIONAL RECOMMENDATIONS: * Per SNF: HT=60" FR=471mnx (02/23/20) * Wound Care: Vit C 250mg QD + Marcelino BID w/ TF order * Monitor lytes, replete as needed (low K and phos) * Monitor TF tolerance: +residual and +recal tube at this time
--- NOTE | 2020-03-02 10:35 | NUR ---
HAND-OFF: Report given to ASAD Staples. Pt remains stable.
[2020-03-02] MEDS ORDERED: Potassium Phosphate 20 MM in NS 275 ML IV ONE (11:00)
--- NOTE | 2020-03-02 11:30 | Pulmonology Progress Note ---
Subjective ROS Limited/Unobtainable: Yes Allergies: Coded Allergies: DIPHENHYDRAMINE (Verified Allergy, Unknown, 02/27/20) Objective Last 24 Hour Vital Signs Date Time Temp Pulse Resp B/P (MAP) Pulse Ox O2 Delivery O2 Flow Rate FiO2 03/02/20 08:40 98 Room Air 21 03/02/20 08:00 Room Air 03/02/20 08:00 90 03/02/20 07:15 98.7 96 22 134/78 (96) 97 03/02/20 04:00 Room Air 03/02/20 04:00 98.4 85 22 138/69 (92) 99 03/02/20 03:55 85 03/02/20 00:00 98.1 77 22 146/90 (108) 98 03/02/20 00:00 Room Air 03/01/20 23:23 87 03/01/20 20:10 99 Room Air 21 03/01/20 20:00 98.4 101 22 133/74 (93) 99 03/01/20 20:00 Room Air 03/01/20 19:18 101 03/01/20 16:00 98.8 89 22 134/71 (92) 98 03/01/20 16:00 Room Air 03/01/20 16:00 100 03/01/20 12:00 85 03/01/20 12:00 98.7 84 22 128/88 (101) 98 03/01/20 12:00 Room Air Intake and Output 03/01/20 03/02/20 19:00 07:00 Intake Total 1405 ml 1070 ml Output Total 2800 ml 1950 ml Balance -1395 ml -880 ml Free Water 50 ml 150 ml IV Total 1235 ml 710 ml Tube Feeding 120 ml 210 ml Output Urine Total 2500 ml 1800 ml Stool Total 300 ml 150 ml General Appearance: no acute distress HEENT: normocephalic, atraumatic, anicteric Respiratory: rhonchi - bilaterally Cardiovascular: normal peripheral pulses, normal rate Abdomen: normal bowel sounds, soft, non tender Extremities: no edema, pedal pulses normal Neurologic: unresponsiveness, aphasia Musculoskeletal: atrophy - BLE Microbiology Date/Time Source Procedure Growth Status 02/28/20 14:30 Stool Clostridium difficile Toxin Assay - Final Complete 02/28/20 14:30 Catheter Site Catheter Tip Culture - Preliminary NO GROWTH AFTER 24 HOURS Resulted Laboratory Tests 03/02/20 04:00: White Blood Count 10.9H, Red Blood Count 3.36L, Hemoglobin 10.8L, Hematocrit 30.1L, Mean Corpuscular Volume 89, Mean Corpuscular Hemoglobin 32.1H, Mean Corpuscular Hemoglobin Concent 35.9, Red Cell Distribution Width 11.2L, Platelet Count 189, Mean Platelet Volume 6.7, Neutrophils (%) (Auto) 74.9, Lymphocytes (%) (Auto) 16.2L, Monocytes (%) (Auto) 7.9, Eosinophils (%) (Auto) 0.0, Basophils (%) (Auto) 0.9, Sodium Level 144, Potassium Level 2.7*L, Chloride Level 104, Carbon Dioxide Level 32, Anion Gap 7, Blood Urea Nitrogen 10 , Creatinine 0.8, Estimat Glomerular Filtration Rate > 60, Glucose Level 107H, Calcium Level 8.2L, Procainamide Level [Pending], B-Gywbcv-Vjaxmvycuctt Level [ Pending], Procainamide & NAPA Level [Pending] Current Medications Medications (Trade) Dose Ordered Sig/Damion Route PRN Reason Start Time Stop Time Status Last Admin Dose Admin Acetaminophen (Tylenol) 650 mg Q4H PRN NG Temp >100.5 02/29/20 02:30 03/28/20 06:29 02/29/20 20:45 Acetaminophen (Tylenol) 650 mg Q4H PRN ORAL fever 02/29/20 02:28 03/28/20 02:27 Albuterol Sulfate (Proventil) 2.5 mg Q4H PRN HHN Shortness of Breath 02/29/20 11:26 03/05/20 11:25 Dextrose/Sodium Chloride 1,000 ml @ 50 mls/hr Q20H IV 02/29/20 03:00 03/28/20 02:59 03/01/20 18:08 Enoxaparin Sodium (Lovenox) 40 mg DAILY SUBQ 02/29/20 09:00 05/27/20 08:59 03/02/20 09:46 Erythromycin (Herb-Ped) 100 mg Q6HR ORAL 03/02/20 13:00 03/09/20 12:59 Heparin Sodium/ Sodium Chloride (Heparin 1000 units/500ml Premix) 1,000 unit ONCE PRN IV picc line placement 03/01/20 07:00 03/03/20 06:59 Lactobacillus Acidophilus (Culturelle) 1 tab TWICE A DAY ORAL 02/29/20 13:00 05/29/20 12:59 03/02/20 09:45 Levetiracetam (Keppra) 700 mg Q12HR NG 02/29/20 09:00 03/28/20 08:59 03/02/20 09:45 Lidocaine HCl (Xylocaine 1% 30ml) 30 ml ONCE PRN INJ picc line placement 03/01/20 07:00 03/03/20 06:59 Loperamide HCl (Imodium) 2 mg Q6H PRN GT Diarrhea 02/29/20 12:45 03/30/20 12:44 03/01/20 08:48 Meropenem 1 gm/ Sodium Chloride 55 ml @ 110 mls/hr Q8H IVPB 02/29/20 09:00 03/11/20 23:59 03/02/20 09:45 Metoclopramide HCl (Reglan) 10 mg Q6H PRN IVP Nausea & Vomiting 03/01/20 07:45 03/31/20 07:44 03/01/20 08:48 Midodrine (Pro-Amatine) 10 mg Q8H PRN ORAL SBP <95 02/29/20 02:34 05/27/20 02:33 Nitroglycerin (Ntg) 0.4 mg Q5M PRN SL Prn Chest Pain 02/29/20 02:20 03/28/20 07:59 Nystatin (Nystop Powder) 1 applic THREE TIMES A DAY TOPIC 02/29/20 09:00 05/27/20 12:59 03/02/20 09:46 Ondansetron HCl (Zofran) 4 mg Q6H PRN IVP Nausea & Vomiting 02/29/20 02:36 03/28/20 02:35 Polyethylene Glycol (Miralax) 17 gm DAILYPRN PRN ORAL Constipation 02/29/20 02:36 03/28/20 02:35 Potassium Phosphate 20 mm/ Sodium Chloride 281.6667 ml @ 46.944 m... ONCE ONCE IV 03/02/20 11:00 03/02/20 16:59 Potassium Chloride 100 ml @ 100 mls/hr Q1H IVPB 03/02/20 11:30 03/02/20 15:29 UNV Promethazine HCl/ Codeine (Phenergan with Codeine) 5 ml Q4H PRN ORAL For Cough 02/29/20 02:36 03/28/20 02:35 Risperidone (RisperDAL) 0.5 mg BIDPRN PRN ORAL mood/psychosis 02/29/20 02:37 04/12/20 02:36 Valproic Acid (Depakene) 250 mg BID@0900,2100 NG 02/29/20 09:00 03/30/20 08:59 03/02/20 09:45 Vitamin D (Vitamin D) 5,000 intlu QWEEK ORAL 03/05/20 09:00 03/28/20 08:59 Assessment/Plan Problems: (1) Acute respiratory failure (2) Nosocomial pneumonia (3) Severe sepsis (4) Attention to G-tube (5) Suspected 2019 novel coronavirus infection (6) Muscle wasting and atrophy, not elsewhere classified, multiple sites Assessment/Plan covid - negative X 1 wbc decreasing continue abx check blood cultures aspiration precaution K supplement. Ana Maria Hansen MD March 02, 2020 11:30
[2020-03-02 12:00] VITALS: BP 133/85
--- NOTE | 2020-03-02 12:15 | NUR ---
NURSE NOTES: Patient resting in bed, no s/s of acute distress. Patient tolerating K+ replacement well. Tube feeding on hold d/t continued residual and inability to tolerate feeding. Dr. Liu aware. Currently residual is 80 mL.
--- NOTE | 2020-03-02 12:18 | Infectious Diseases Prog Note ---
Assessment/Plan Assessment/Plan Assessment: Severe Sepsis Acute hypoxic respiratory failure sp NRB- now at RA PNA r/o COVID19- 1st sample neg ESBL K.pna bacteremia and pneumonia -03/01 CXR: Slight worsening of bibasilar infiltrates. -CXR: Basilar infiltrates. -Bcx 3/ ESBL K.pna (S Levo, Meropenem, ZOsyn) -sp cx ESBL K.pna -02/27 sp removal PICC Line; cath tip cx NTD -02/26 SARS-COV2 pCR neg -legionella ag urine neg Fever; improving Leukocytosis; resolving -u/a no pyuria -Cdiff neg Lactic acidosis, SP Princess intertrigo muscle weakness and atrophy (not characterized) psychiatric disorder dysphagia s/p GT [place] resident (recently transferred from [place] to [facility]) Plan: - Switch Meropenem #02/21-14 to Ertapenem 03/01 SP IV Vancomycin, and azithromycin #4 02/27/20 SP Zosyn #1, CEfepime x1, FLagyl x1 -f/u cx -Monitor CBC/CMP, temperatures -COVID19 isolation and testing; await 2nd sample -aspiration precautions -f/u repeat Bcx x2 Thank you for consulting [facility]. Will continue to follow along wiht you. Subjective Allergies: Coded Allergies: DIPHENHYDRAMINE (Verified Allergy, Unknown, 02/27/20) Subjective afebrile >36hrs at wbc improving Objective Vital Signs Last 24 Hour Vital Signs Date Time Temp Pulse Resp B/P (MAP) Pulse Ox O2 Delivery O2 Flow Rate FiO2 03/02/20 12:00 Room Air 03/02/20 08:40 98 Room Air 21 03/02/20 08:00 Room Air 03/02/20 08:00 90 03/02/20 07:15 98.7 96 22 134/78 (96) 97 03/02/20 04:00 Room Air 03/02/20 04:00 98.4 85 22 138/69 (92) 99 03/02/20 03:55 85 03/02/20 00:00 98.1 77 22 146/90 (108) 98 03/02/20 00:00 Room Air 03/01/20 23:23 87 03/01/20 20:10 99 Room Air 21 03/01/20 20:00 98.4 101 22 133/74 (93) 99 03/01/20 20:00 Room Air 03/01/20 19:18 101 03/01/20 16:00 98.8 89 22 134/71 (92) 98 03/01/20 16:00 Room Air 03/01/20 16:00 100 Height (Feet): 5 Height (Inches): 5.00 Weight (Pounds): 150 Objective not examined to limit COVID19 exposure Microbiology Date/Time Source Procedure Growth Status 02/28/20 14:30 Stool Clostridium difficile Toxin Assay - Final Complete 02/28/20 14:30 Catheter Site Catheter Tip Culture - Preliminary NO GROWTH AFTER 24 HOURS Resulted Laboratory Tests Test 03/02/20 04:00 White Blood Count 10.9 K/UL (4.8-10.8) H Red Blood Count 3.36 M/UL (4.70-6.10) L Hemoglobin 10.8 G/DL (14.2-18.0) L Hematocrit 30.1 % (42.0-52.0) L Mean Corpuscular Volume 89 FL (80-99) Mean Corpuscular Hemoglobin 32.1 PG (27.0-31.0) H Mean Corpuscular Hemoglobin Concent 35.9 G/DL (32.0-36.0) Red Cell Distribution Width 11.2 % (11.6-14.8) L Platelet Count 189 K/UL (150-450) Mean Platelet Volume 6.7 FL (6.5-10.1) Neutrophils (%) (Auto) 74.9 % (45.0-75.0) Lymphocytes (%) (Auto) 16.2 % (20.0-45.0) L Monocytes (%) (Auto) 7.9 % (1.0-10.0) Eosinophils (%) (Auto) 0.0 % (0.0-3.0) Basophils (%) (Auto) 0.9 % (0.0-2.0) Sodium Level 144 MMOL/L (136-145) Potassium Level 2.7 MMOL/L (3.5-5.1) *L Chloride Level 104 MMOL/L (98-107) Carbon Dioxide Level 32 MMOL/L (21-32) Anion Gap 7 mmol/L (5-15) Blood Urea Nitrogen 10 mg/dL (7-18) Creatinine 0.8 MG/DL (0.55-1.30) Estimat Glomerular Filtration Rate > 60 mL/min (>60) Glucose Level 107 MG/DL (74-106) H Calcium Level 8.2 MG/DL (8.5-10.1) L Procainamide Level Pending D-Khmhqx-Xldupdjvesza Level Pending Procainamide & NAPA Level Pending Current Medications Medications (Trade) Dose Ordered Sig/Damion Route PRN Reason Start Time Stop Time Status Last Admin Dose Admin Acetaminophen (Tylenol) 650 mg Q4H PRN NG Temp >100.5 02/29/20 02:30 03/28/20 06:29 02/29/20 20:45 Acetaminophen (Tylenol) 650 mg Q4H PRN ORAL fever 02/29/20 02:28 03/28/20 02:27 Albuterol Sulfate (Proventil) 2.5 mg Q4H PRN HHN Shortness of Breath 02/29/20 11:26 03/05/20 11:25 Dextrose/Sodium Chloride 1,000 ml @ 50 mls/hr Q20H IV 02/29/20 03:00 03/28/20 02:59 03/01/20 18:08 Enoxaparin Sodium (Lovenox) 40 mg DAILY SUBQ 02/29/20 09:00 05/27/20 08:59 03/02/20 09:46 Erythromycin (Herb-Ped) 100 mg Q6HR ORAL 03/02/20 13:00 03/09/20 12:59 Heparin Sodium/ Sodium Chloride (Heparin 1000 units/500ml Premix) 1,000 unit ONCE PRN IV picc line placement 03/01/20 07:00 03/03/20 06:59 Lactobacillus Acidophilus (Culturelle) 1 tab TWICE A DAY ORAL 02/29/20 13:00 05/29/20 12:59 03/02/20 09:45 Levetiracetam (Keppra) 700 mg Q12HR NG 02/29/20 09:00 03/28/20 08:59 03/02/20 09:45 Lidocaine HCl (Xylocaine 1% 30ml) 30 ml ONCE PRN INJ picc line placement 03/01/20 07:00 03/03/20 06:59 Loperamide HCl (Imodium) 2 mg Q6H PRN GT Diarrhea 02/29/20 12:45 03/30/20 12:44 03/01/20 08:48 Meropenem 1 gm/ Sodium Chloride 55 ml @ 110 mls/hr Q8H IVPB 02/29/20 09:00 03/11/20 23:59 03/02/20 09:45 Metoclopramide HCl (Reglan) 10 mg Q6H PRN IVP Nausea & Vomiting 03/01/20 07:45 03/31/20 07:44 03/01/20 08:48 Midodrine (Pro-Amatine) 10 mg Q8H PRN ORAL SBP <95 02/29/20 02:34 05/27/20 02:33 Nitroglycerin (Ntg) 0.4 mg Q5M PRN SL Prn Chest Pain 02/29/20 02:20 03/28/20 07:59 Nystatin (Nystop Powder) 1 applic THREE TIMES A DAY TOPIC 02/29/20 09:00 05/27/20 12:59 03/02/20 11:38 Ondansetron HCl (Zofran) 4 mg Q6H PRN IVP Nausea & Vomiting 02/29/20 02:36 03/28/20 02:35 Polyethylene Glycol (Miralax) 17 gm DAILYPRN PRN ORAL Constipation 02/29/20 02:36 03/28/20 02:35 Potassium Phosphate 20 mm/ Sodium Chloride 281.6667 ml @ 46.944 m... ONCE ONCE IV 03/02/20 11:00 03/02/20 16:59 03/02/20 11:31 Potassium Chloride 100 ml @ 100 mls/hr Q1H IVPB 03/02/20 12:00 03/02/20 15:59 03/02/20 11:37 Potassium Chloride (K-Dur) 40 meq ONCE ORAL 03/02/20 11:30 03/02/20 12:30 03/02/20 11:36 Promethazine HCl/ Codeine (Phenergan with Codeine) 5 ml Q4H PRN ORAL For Cough 02/29/20 02:36 03/28/20 02:35 Risperidone (RisperDAL) 0.5 mg BIDPRN PRN ORAL mood/psychosis 02/29/20 02:37 04/12/20 02:36 Valproic Acid (Depakene) 250 mg BID@0900,2100 NG 02/29/20 09:00 03/30/20 08:59 03/02/20 09:45 Vitamin D (Vitamin D) 5,000 intlu QWEEK ORAL 03/05/20 09:00 03/28/20 08:59 Charlene Stokes M.D. March 02, 2020 12:18
[2020-03-02] MEDS: Erythromycin Ethylsuccinate 200mg/5ml Susp ORAL SCH ×2 (13:00→19:18)
--- NOTE | 2020-03-02 14:10 | Cardiology Progress Note ---
Assessment/Plan Assessment/Plan 1. Septic shock. 2. Respiratory insufficiency. 3. Lactic acidosis. 4. Abnormal cardiac enzymes, likely demand related. 5. kleb, bacteremia covid #1 neg wbc much im[proved k low supplemented cxr worsening infiltrate fever resolved telel noted sinus rn reprot an episode of tahcy but no strips recorded Subjective Subjective per rn pt. in bed awake with eyes open- non-verbal, no signs or symptoms of acute cardiac or respiratory distress noted, appears to be sating well on room air-no distress noted, pt. has feeding via g tube for Jevity 60vv/hr- but is on hold due to high residuals- Objective Last 24 Hour Vital Signs Date Time Temp Pulse Resp B/P (MAP) Pulse Ox O2 Delivery O2 Flow Rate FiO2 03/02/20 12:00 98.1 99 19 133/85 (101) 03/02/20 12:00 Room Air 03/02/20 12:00 105 03/02/20 08:40 98 Room Air 21 03/02/20 08:00 Room Air 03/02/20 08:00 90 03/02/20 07:15 98.7 96 22 134/78 (96) 97 03/02/20 04:00 Room Air 03/02/20 04:00 98.4 85 22 138/69 (92) 99 03/02/20 03:55 85 03/02/20 00:00 98.1 77 22 146/90 (108) 98 03/02/20 00:00 Room Air 03/01/20 23:23 87 03/01/20 20:10 99 Room Air 21 03/01/20 20:00 98.4 101 22 133/74 (93) 99 03/01/20 20:00 Room Air 03/01/20 19:18 101 03/01/20 16:00 98.8 89 22 134/71 (92) 98 03/01/20 16:00 Room Air 03/01/20 16:00 100 General Appearance: no apparent distress, alert Intake and Output 03/01/20 03/02/20 19:00 07:00 Intake Total 1405 ml 1070 ml Output Total 2800 ml 1950 ml Balance -1395 ml -880 ml Free Water 50 ml 150 ml IV Total 1235 ml 710 ml Tube Feeding 120 ml 210 ml Output Urine Total 2500 ml 1800 ml Stool Total 300 ml 150 ml Laboratory Tests Test 03/02/20 04:00 White Blood Count 10.9 K/UL (4.8-10.8) H Red Blood Count 3.36 M/UL (4.70-6.10) L Hemoglobin 10.8 G/DL (14.2-18.0) L Hematocrit 30.1 % (42.0-52.0) L Mean Corpuscular Volume 89 FL (80-99) Mean Corpuscular Hemoglobin 32.1 PG (27.0-31.0) H Mean Corpuscular Hemoglobin Concent 35.9 G/DL (32.0-36.0) Red Cell Distribution Width 11.2 % (11.6-14.8) L Platelet Count 189 K/UL (150-450) Mean Platelet Volume 6.7 FL (6.5-10.1) Neutrophils (%) (Auto) 74.9 % (45.0-75.0) Lymphocytes (%) (Auto) 16.2 % (20.0-45.0) L Monocytes (%) (Auto) 7.9 % (1.0-10.0) Eosinophils (%) (Auto) 0.0 % (0.0-3.0) Basophils (%) (Auto) 0.9 % (0.0-2.0) Sodium Level 144 MMOL/L (136-145) Potassium Level 2.7 MMOL/L (3.5-5.1) *L Chloride Level 104 MMOL/L (98-107) Carbon Dioxide Level 32 MMOL/L (21-32) Anion Gap 7 mmol/L (5-15) Blood Urea Nitrogen 10 mg/dL (7-18) Creatinine 0.8 MG/DL (0.55-1.30) Estimat Glomerular Filtration Rate > 60 mL/min (>60) Glucose Level 107 MG/DL (74-106) H Calcium Level 8.2 MG/DL (8.5-10.1) L Procainamide Level Pending Y-Ndsczg-Zimqvslyoujd Level Pending Procainamide & NAPA Level Pending Microbiology Date/Time Source Procedure Growth Status 02/28/20 14:30 Stool Clostridium difficile Toxin Assay - Final Complete 02/28/20 14:30 Catheter Site Catheter Tip Culture - Preliminary NO GROWTH AFTER 24 HOURS Resulted Objective per pulm PA General Appearance: no acute distress HEENT: normocephalic, atraumatic, anicteric Respiratory: rhonchi - bilaterally Cardiovascular: tachycardia Abdomen: normal bowel sounds, soft, non tender Extremities: no edema, pedal pulses normal Antwon Arzate MD March 02, 2020 14:10
--- NOTE | 2020-03-02 14:11 | Diagnostic Imaging Report ---
EXAM: XRAY Abdomen 1v HISTORY: Reason For Exam: ABD PAIN COMPARISON: None. TECHNIQUE: Single frontal view of the upper abdomen obtained. Lower abdomen not included on this radiograph. FINDINGS: There is a nonobstructed bowel gas pattern. There is a G-tube in place. Multiple overlying artifacts noted over the chest and upper abdomen. No definite pathologic calcifications identified. There is no sign of free air. Left basilar retrocardiac opacity noted. IMPRESSION: G-TUBE IN PLACE. NONSPECIFIC NONOBSTRUCTIVE BOWEL GAS PATTERN IN THE UPPER ABDOMEN. LEFT LUNG BASE RETROCARDIAC ALVEOLAR DENSITIES.
--- NOTE | 2020-03-02 14:17 | NUR ---
CASE MANAGEMENT: REVIEW SI: COVID-19 R/O . ESBL K.PNA BACTEREMIA T 98.1 HR 105 RR 19 BP 133/85 SAT 98% ROOM AIR WBC 10.9 H/H 10.8/30.1 K 2.7 OB STOOL PENDING PENDING REPEAT COVID-19 IS: K PHOS 20MEQ IV X1 KCl 10 MEQ @ 100ML/HR D5 NS IVF @ 50ML/HR MEROPENEM IV Q8HR LOVENOX SUBQ QD STEP DOWN UNIT STATUS DCP: PATIENT IS FROM [facility]
[2020-03-02 16:00] VITALS: BP 131/81
--- NOTE | 2020-03-02 16:37 | Internal Med Progress Note ---
Subjective Date of Service: March 02, 2020 Physician Name Obey Cisneros Attending Physician Marky Go MD Current Medications Medications (Trade) Dose Ordered Sig/Damion Route PRN Reason Start Time Stop Time Status Last Admin Dose Admin Acetaminophen (Tylenol) 650 mg Q4H PRN NG Temp >100.5 02/29/20 02:30 03/28/20 06:29 02/29/20 20:45 Acetaminophen (Tylenol) 650 mg Q4H PRN ORAL fever 02/29/20 02:28 03/28/20 02:27 Albuterol Sulfate (Proventil) 2.5 mg Q4H PRN HHN Shortness of Breath 02/29/20 11:26 03/05/20 11:25 Dextrose/Sodium Chloride 1,000 ml @ 50 mls/hr Q20H IV 02/29/20 03:00 03/28/20 02:59 03/01/20 18:08 Enoxaparin Sodium (Lovenox) 40 mg DAILY SUBQ 02/29/20 09:00 05/27/20 08:59 03/02/20 09:46 Ertapenem 1 gm/ Sodium Chloride 55 ml @ 110 mls/hr Q24H IVPB 03/02/20 18:00 03/07/20 17:59 Erythromycin (Herb-Ped) 100 mg Q6HR ORAL 03/02/20 13:00 03/09/20 12:59 03/02/20 13:00 Heparin Sodium/ Sodium Chloride (Heparin 1000 units/500ml Premix) 1,000 unit ONCE PRN IV picc line placement 03/01/20 07:00 03/03/20 06:59 Lactobacillus Acidophilus (Culturelle) 1 tab TWICE A DAY ORAL 02/29/20 13:00 05/29/20 12:59 03/02/20 09:45 Levetiracetam (Keppra) 700 mg Q12HR NG 02/29/20 09:00 03/28/20 08:59 03/02/20 09:45 Lidocaine HCl (Xylocaine 1% 30ml) 30 ml ONCE PRN INJ picc line placement 03/01/20 07:00 03/03/20 06:59 Loperamide HCl (Imodium) 2 mg Q6H PRN GT Diarrhea 02/29/20 12:45 03/30/20 12:44 03/01/20 08:48 Metoclopramide HCl (Reglan) 10 mg Q6H PRN IVP Nausea & Vomiting 03/01/20 07:45 03/31/20 07:44 03/01/20 08:48 Midodrine (Pro-Amatine) 10 mg Q8H PRN ORAL SBP <95 02/29/20 02:34 05/27/20 02:33 Nitroglycerin (Ntg) 0.4 mg Q5M PRN SL Prn Chest Pain 02/29/20 02:20 03/28/20 07:59 Nystatin (Nystop Powder) 1 applic THREE TIMES A DAY TOPIC 02/29/20 09:00 05/27/20 12:59 03/02/20 11:38 Ondansetron HCl (Zofran) 4 mg Q6H PRN IVP Nausea & Vomiting 02/29/20 02:36 03/28/20 02:35 Polyethylene Glycol (Miralax) 17 gm DAILYPRN PRN ORAL Constipation 02/29/20 02:36 03/28/20 02:35 Potassium Phosphate 20 mm/ Sodium Chloride 281.6667 ml @ 46.944 m... ONCE ONCE IV 03/02/20 11:00 03/02/20 16:59 03/02/20 11:31 Promethazine HCl/ Codeine (Phenergan with Codeine) 5 ml Q4H PRN ORAL For Cough 02/29/20 02:36 03/28/20 02:35 Risperidone (RisperDAL) 0.5 mg BIDPRN PRN ORAL mood/psychosis 02/29/20 02:37 04/12/20 02:36 Valproic Acid (Depakene) 250 mg BID@0900,2100 NG 02/29/20 09:00 03/30/20 08:59 03/02/20 09:45 Vitamin D (Vitamin D) 5,000 intlu QWEEK ORAL 03/05/20 09:00 03/28/20 08:59 Allergies: Coded Allergies: DIPHENHYDRAMINE (Verified Allergy, Unknown, 02/27/20) ROS Limited/Unobtainable: No Constitutional: Reports: no symptoms HEENT: Reports: no symptoms Cardiovascular: Reports: no symptoms Respiratory: Reports: no symptoms Gastrointestinal/Abdominal: Reports: no symptoms Genitourinary: Reports: no symptoms Neurologic/Psychiatric: Reports: no symptoms Subjective 59 YO M admitted with respiratory failure. Now Sepsis and pneumonia. Cover for Int Faraz-Dr Go Objective Last Vital Signs Date Time Temp Pulse Resp B/P (MAP) Pulse Ox O2 Delivery O2 Flow Rate FiO2 03/02/20 12:00 98.1 99 19 133/85 (101) 03/02/20 12:00 Room Air 03/02/20 08:40 98 21 02/29/20 08:09 3.0 Laboratory Tests Test 03/02/20 04:00 White Blood Count 10.9 K/UL (4.8-10.8) H Red Blood Count 3.36 M/UL (4.70-6.10) L Hemoglobin 10.8 G/DL (14.2-18.0) L Hematocrit 30.1 % (42.0-52.0) L Mean Corpuscular Volume 89 FL (80-99) Mean Corpuscular Hemoglobin 32.1 PG (27.0-31.0) H Mean Corpuscular Hemoglobin Concent 35.9 G/DL (32.0-36.0) Red Cell Distribution Width 11.2 % (11.6-14.8) L Platelet Count 189 K/UL (150-450) Mean Platelet Volume 6.7 FL (6.5-10.1) Neutrophils (%) (Auto) 74.9 % (45.0-75.0) Lymphocytes (%) (Auto) 16.2 % (20.0-45.0) L Monocytes (%) (Auto) 7.9 % (1.0-10.0) Eosinophils (%) (Auto) 0.0 % (0.0-3.0) Basophils (%) (Auto) 0.9 % (0.0-2.0) Sodium Level 144 MMOL/L (136-145) Potassium Level 2.7 MMOL/L (3.5-5.1) *L Chloride Level 104 MMOL/L (98-107) Carbon Dioxide Level 32 MMOL/L (21-32) Anion Gap 7 mmol/L (5-15) Blood Urea Nitrogen 10 mg/dL (7-18) Creatinine 0.8 MG/DL (0.55-1.30) Estimat Glomerular Filtration Rate > 60 mL/min (>60) Glucose Level 107 MG/DL (74-106) H Calcium Level 8.2 MG/DL (8.5-10.1) L Procainamide Level Pending I-Prweks-Mhiclypctnuh Level Pending Procainamide & NAPA Level Pending Intake and Output 03/01/20 03/02/20 19:00 07:00 Intake Total 1405 ml 1070 ml Output Total 2800 ml 1950 ml Balance -1395 ml -880 ml Free Water 50 ml 150 ml IV Total 1235 ml 710 ml Tube Feeding 120 ml 210 ml Output Urine Total 2500 ml 1800 ml Stool Total 300 ml 150 ml Objective Objective GENERAL: Patient chronically ill-looking, not distress, on Room air sat 98%. HEAD AND NECK: Pupils are equal and reactive to light. Anicteric. Neck was supple. No JVD. LUNGS: Good air entry. No wheezing or rales. Decreased air in bases. HEART: S1, S2. Tachycardic. No murmur or gallop. ABDOMEN: Soft, nondistended, nontender. PEG site is clean. EXTREMITIES: No cyanosis or clubbing. Mildly edematous in the upper extremity. Right upper extremity has a PICC line. NEUROLOGIC: Very limited secondary to patient's status. Patient is moving all extremities spontaneously slowly; cranial nerves II through XII is limited evaluation. RECTAL/GENITOURINARY: Refused and deferred. PSYCHIATRIC: Mood and affect unable to obtain. Assessment/Plan Assessment/Plan Assessment/Plan Assessment/Plan Assessment/Plan ASSESSMENT: 1. Acute hypoxemic respiratory failure, possible COVID-19 infection. 2. Bilateral pneumonia=ESBL Klebsiella 3. Sepsis=ESBL Klebsiella 4. Severe dehydration. 5. Lactic acidosis. 6. Klebsiella ESBL bacteremia, possible line sepsis. 7. Dysphagia, status post PEG. 8. Psychiatric disorder. 9. retirement resident. 10. Elevated Troponin most likely due to Demand ischemia. 11. Hypokalemia PLAN: In [place], COVID-[address] Hansen=Pulmonary Critical Care, Dr. Stokes=Infectious Disease Dr. Barragan = Cardiology consultation. Abx: vancomycin and Meropenem IV Removed of the PICC line. Code status: Full Code. DVT prophylaxis: Lovenox Inj. Follow up with the laboratory as well as culture. Lomotil PRN 1st COVID-19 test negative Nephrology=Obey Rodgers MD March 02, 2020 16:37
[2020-03-02] MEDS: Acetaminophen 650mg/20.3ml NG PRN (16:49)
[2020-03-02] MEDS: D5 1/2NS 1,000 ML IV SCH (16:54)
--- NOTE | 2020-03-02 19:00 | Consultation ---
DATE OF CONSULTATION: 03/02/2020 CONSULTING PHYSICIAN: Clarke Liu MD. REFERRING PHYSICIAN: Marky Go MD. CHIEF COMPLAINT: Elevated residual, dysphagia. HISTORY OF PRESENT ILLNESS: Most of history per chart. This is a 59-year-old male, snf patient of [facility], who presented to the hospital with shortness of breath, cough, and fever. There was question for COVID positivity. The patient has history of G-tube and GI consultation was requested for management of G-tube and elevated residual. PAST MEDICAL HISTORY: 1. History of sepsis. 2. Pneumonia. 3. Dysphagia with G-tube. 4. Psychiatric disorder. ALLERGIES: To Benadryl. MEDICATIONS: Please see medication reconciliation list. FAMILY HISTORY: Noncontributory. SOCIAL HISTORY: Currently lives in a snf. No recent history of tobacco, alcohol, or IV drug abuse. REVIEW OF SYSTEMS: Limited. PAST SURGICAL HISTORY: Unknown. PHYSICAL EXAMINATION: VITAL SIGNS: Temperature 98.7, pulse is 96, respirations 22, blood pressure is 134/78. HEENT: Normocephalic and atraumatic. Mildly pale conjunctivae. NECK: Supple. No evidence of obvious lymphadenopathy. CARDIOVASCULAR: Tachycardic. Plus S1, S2. LUNGS: Decreased breath sounds bilaterally based on the supine exam. ABDOMEN: Soft, nontender. No rebound. No guarding. No peritoneal sign. G-tube in place. EXTREMITIES: No cyanosis. No clubbing. No edema. LABORATORY DATA: White count is 10.9, hemoglobin 10.8, hematocrit 30, platelet count is 189,000. Chem-7, sodium 144, potassium 2.7, BUN is 10, creatinine 0.8, glucose is 107. ASSESSMENT: This is a 59-year-old male, admitted to the hospital with sepsis. White count was up to about 26,000, and now it is down to about 10,000. The patient is having elevated residual despite of Reglan every 6 hours. PLAN: At this time, this gastroparesis might be due to resolving sepsis. We will recommend continue on antibiotics and continue on Reglan. We can add low dose of erythromycins per G-tube for further better motility. We will monitor for residuals and start tube feeding when residual is less than 100. Meanwhile, we are going to order anemia workup. G-tube care. G-tube flush. I want to thank, Dr. Marky Go, for this kind referral. Clarke Liu M.D. DR: Al JOB#: [id number] CC: Marky Go MD; Fax#: [phone]
--- NOTE | 2020-03-02 19:10 | NUR ---
HAND-OFF: Report given to Trace KAMARA.
--- NOTE | 2020-03-02 19:11 | NUR ---
NURSE NOTES: Received report from ASAD Gallagher, pt. in bed awake with eyes open- non-verbal, no signs or symptoms of acute cardiac or respiratory distress noted, bed alarm on, side rails up x's3 and safety brakes engaged, pt. appears to be sating well on room air-no distress noted, bed in lowest position, call light within easy reach, bed alarm on, side rails up x's3, HOB elevated, pt. has feeding via g tube for Jevity 60vv/hr- but is on hold due to high residuals- will continue to monitor pt., Patient has Vargas and rectal tube both intact and draining to gravity, pt. has FARIDEH PICC running D5 1/2 NS at 50cc/hr- IV intact and patent, pt. appears to be resting comfortably, will continue to monitor pt. and with plan of care.
[2020-03-02] MEDS: Ertapenem 1 GM in NS 55 ML IVPB SCH (19:19)
[2020-03-02 20:00] VITALS: BP 134/87
[2020-03-03] VITALS: BP 124/82
[2020-03-03] MEDS: Erythromycin Ethylsuccinate 200mg/5ml Susp ORAL SCH ×4 (00:02→17:55)
[2020-03-03 04:00] VITALS: BP 128/87
[2020-03-03 05:47] LABS: PHOSPHORUS 2.4 MG/DL (2.5-4.9)
[2020-03-03 05:48] LABS: BASOPHILS % (AUTO) 1.3 % (0.0-2.0); EOSINOPHILS % (AUTO) 0.5 % (0.0-3.0); HEMATOCRIT 29.6 % (42.0-52.0); HEMOGLOBIN 10.4 G/DL (14.2-18.0); LYMPHOCYTES % (AUTO) 20.5 % (20.0-45.0); MEAN CORPUSCULAR VOLUME 90 FL (80-99); NEUTROPHILS % (AUTO) 66.8 % (45.0-75.0); PLATELET COUNT 222 K/UL (150-450); RED BLOOD COUNT 3.29 M/UL (4.70-6.10); RED CELL DISTRIBUTION WIDTH 11.1 % (11.6-14.8); WHITE BLOOD COUNT 9.9 K/UL (4.8-10.8)
[2020-03-03 05:56] LABS: ALANINE AMINOTRANSFERASE 39 U/L (12-78); ALBUMIN 2.1 G/DL (3.4-5.0); ALBUMIN/GLOBULIN RATIO 0.6 (1.0-2.7); ALKALINE PHOSPHATASE 68 U/L (46-116); ANION GAP 5 mmol/L (5-15); ASPARTATE AMINO TRANSFERASE 26 U/L (15-37); BILIRUBIN,TOTAL 0.4 MG/DL (0.2-1.0); BLOOD UREA NITROGEN 7 mg/dL (7-18); CARBON DIOXIDE 31 MMOL/L (21-32); CHLORIDE 103 MMOL/L (98-107); CREATININE 0.9 MG/DL (0.55-1.30); SODIUM 139 MMOL/L (136-145)
--- NOTE | 2020-03-03 06:58 | NUR ---
HAND-OFF: Report given to ASAD Millan pt. remains stable and no signs of distress noted- nurse aware to f/u on am abnormal labs.
[2020-03-03 07:03] LABS: % IRON SATURATION 22 % (15-50); IRON 28 ug/dL (50-175); TOTAL IRON BINDING CAPACITY 126 ug/dL (250-450)
--- NOTE | 2020-03-03 07:20 | NUR ---
NURSE NOTES: Received report from ASAD Woodward. The patient is resting on the bed without acute distress or shortness of breath. The patient is moaning only and communication made by facial expression. The patient's bed in the lowest position, call light in reach, and fall, aspiration, and seizure precaution reinforced. Double lumen PICC line on FARIDEH intact and patent and D5 1/2NS@50mL/hr running per order. The patient is on room air and oxygen saturation within normal range. The patient has G tube intact and patent but residual of 100mL noted and notified to Dr. Liu. Vargas and Rectal tube intact and patent and draining by gravity. Vital signs noted. Will follow up the lab. Will continue plan of care.
[2020-03-03 07:30] VITALS: BP 141/90
--- NOTE | 2020-03-03 08:30 | NUR ---
NURSE NOTES: Notified Dr. Bustillo regarding abnormal lab. Dr. Bustillo ordered electrolyte replacement therapy. Will administer as ordered. Will continue plan of care.
[2020-03-03] MEDS: Valproic Acid 250mg/5ml Liquid NG SCH ×2 (08:53→21:16)
[2020-03-03] MEDS: levETIRAcetam 500mg/5ml Liquid NG SCH ×2 (08:53→21:16)
[2020-03-03] MEDS: Lactobacillus-GG tablet ORAL SCH ×2 (08:53→17:55)
[2020-03-03] MEDS: Enoxaparin 40mg Inj SUBQ SCH (08:54)
[2020-03-03] MEDS ORDERED: Potassium Phosphate 20 MM in NS 275 ML IV ONE (09:00)
[2020-03-03] MEDS: D5 1/2NS 1,000 ML IV SCH (09:00)
--- NOTE | 2020-03-03 09:08 | Consultation ---
Consult Note Consult Note 2 asked to eval and manage HypoKalemia Patient seen in room 241 SDU PAST MEDICAL sepsis, pneumonia, G-tube placement, psychiatric disorder. Current conditions patient is being treated for: (1) Acute respiratory failure (2) Nosocomial pneumonia (3) Severe sepsis (4) Attention to G-tube (5) Suspected 2019 novel coronavirus infection (6) Muscle wasting and atrophy, not elsewhere classified, multiple sites Patient nonverbal Examined Data reviewed . Assessment/Plan Hypokalemia most likely secondary to liquid-milton diarrhea Patient currently have a rectal tube and a bag full of liquid stool Suggestion: Will give IV potassium Phosphorus and magnesium supplement as needed Continue per consultants Per orders Kin Bustillo MD March 03, 2020 09:08
[2020-03-03] MEDS: Nystatin Powder 100,000 units/gm 15gm TOPIC SCH ×3 (09:12→17:55)
--- NOTE | 2020-03-03 09:30 | NUR ---
NURSE NOTES: Dr. Liu at the bedside assessed the patient. Re-informed regarding high residual for G tube feeding. Dr. Liu ordered GJT placement for 03/04/2020. The patient is stable at this time. Will continue plan of care.
--- NOTE | 2020-03-03 09:46 | General Progress Note ---
Assessment/Plan Problem List: (1) Type 2 myocardial infarction ICD Codes: I21.A1 - Myocardial infarction type 2 SNOMED: 92026723 (2) Nosocomial pneumonia ICD Codes: J18.9 - Pneumonia, unspecified organism; Y95 - Nosocomial condition SNOMED: 741598936 (3) Attention to G-tube ICD Codes: Z43.1 - Encounter for attention to gastrostomy; R65.20 - Severe sepsis without septic shock SNOMED: 243678193, 878414884, 157625935 (4) Severe sepsis ICD Codes: A41.9 - Sepsis, unspecified organism; R65.20 - Severe sepsis without septic shock SNOMED: 05027702 Status: stable, unchanged Assessment/Plan: elevated residuals despite reglan IV needs GJT placement plan for tomorrow Subjective ROS Limited/Unobtainable: No Allergies: Coded Allergies: DIPHENHYDRAMINE (Verified Allergy, Unknown, 02/27/20) Objective Last 24 Hour Vital Signs Date Time Temp Pulse Resp B/P (MAP) Pulse Ox O2 Delivery O2 Flow Rate FiO2 03/03/20 07:30 98.2 98 20 141/90 (107) 96 03/03/20 07:27 96 03/03/20 07:00 96 Room Air 21 03/03/20 04:00 98.4 87 20 128/87 (101) 98 03/03/20 04:00 Room Air 03/03/20 04:00 90 03/03/20 04:00 90 03/03/20 00:00 97.8 83 20 124/82 (96) 97 03/03/20 00:00 Room Air 03/02/20 23:32 87 03/02/20 20:00 98.1 85 20 134/87 (103) 95 03/02/20 20:00 Room Air 03/02/20 19:34 91 03/02/20 19:24 97 Room Air 21 03/02/20 17:19 100.1 03/02/20 16:00 Room Air 03/02/20 16:00 101 03/02/20 16:00 100.5 98 19 131/81 (98) 95 03/02/20 12:00 98.1 99 19 133/85 (101) 03/02/20 12:00 Room Air 03/02/20 12:00 105 Intake and Output 03/02/20 03/03/20 19:00 07:00 Intake Total 50 ml 800 ml Output Total 2575 ml Balance 50 ml -1775 ml Free Water 150 ml IV Total 50 ml 550 ml Tube Feeding 100 ml Output Urine Total 2500 ml Stool Total 75 ml Laboratory Tests 03/03/20 01:00: Stool Occult Blood [Pending] 03/03/20 04:00: White Blood Count 9.9, Red Blood Count 3.29L, Hemoglobin 10.4L, Hematocrit 29.6L , Mean Corpuscular Volume 90, Mean Corpuscular Hemoglobin 31.5H, Mean Corpuscular Hemoglobin Concent 35.1, Red Cell Distribution Width 11.1L, Platelet Count 222, Mean Platelet Volume 6.4L, Neutrophils (%) (Auto) 66.8, Lymphocytes (%) (Auto) 20.5, Monocytes (%) (Auto) 11.0H, Eosinophils (%) (Auto) 0.5, Basophils (%) (Auto) 1.3, Erythrocyte Sedimentation Rate 60H, Sodium Level 139, Potassium Level 3.0L, Chloride Level 103, Carbon Dioxide Level 31, Anion Gap 5, Blood Urea Nitrogen 7, Creatinine 0.9, Estimat Glomerular Filtration Rate > 60, Glucose Level 303#H, Hemoglobin A1c 4.2L, Calcium Level 8.0L, Phosphorus Level 2.4L, Magnesium Level 1.6L, Iron Level 28L, Total Iron Binding Capacity 126L, Percent Iron Saturation 22, Unsaturated Iron Binding 98L, Total Bilirubin 0.4, Gamma Glutamyl Transpeptidase 46, Aspartate Amino Transf (AST/ SGOT) 26, Alanine Aminotransferase (ALT/SGPT) 39, Alkaline Phosphatase 68, Lactate Dehydrogenase 153, C-Reactive Protein, Quantitative 3.8H, Total Protein 5.7L, Albumin 2.1L, Globulin 3.6, Albumin/Globulin Ratio 0.6L, Vitamin B12 Level > 2000H, Folate 19.4 Height (Feet): 5 Height (Inches): 5.00 Weight (Pounds): 151 General Appearance: alert EENT: normal ENT inspection Neck: supple Cardiovascular: normal rate Respiratory/Chest: decreased breath sounds Abdomen: normal bowel sounds, non tender, soft Extremities: non-tender Clarke Liu MD March 03, 2020 09:46
--- NOTE | 2020-03-03 10:51 | Diagnostic Imaging Report ---
EXAM: ULTRASOUND Venous Duplex Scan Brian Leg CLINICAL HISTORY: Leg pain and edema. COMPARISON: None TECHNIQUE: Doppler examination include grayscale images obtained with and without compression, and color and spectral doppler analysis. FINDINGS: Doppler examination shows normal spontaneity, phasicity, compressibility in the bilateral lower extremities. There is no thrombus identified by grayscale. Normal color and spectral flow is identified. There is no evidence of valvular incompetency or insufficiency. IMPRESSION: UNREMARKABLE VENOUS DUPLEX.
--- NOTE | 2020-03-03 10:58 | Internal Med Progress Note ---
Subjective Date of Service: March 03, 2020 Physician Name Obey Cisneros Attending Physician Marky Go MD Current Medications Medications (Trade) Dose Ordered Sig/Damion Route PRN Reason Start Time Stop Time Status Last Admin Dose Admin Acetaminophen (Tylenol) 650 mg Q4H PRN NG Temp >100.5 02/29/20 02:30 03/28/20 06:29 03/02/20 16:49 Acetaminophen (Tylenol) 650 mg Q4H PRN ORAL fever 02/29/20 02:28 03/28/20 02:27 Albuterol Sulfate (Proventil) 2.5 mg Q4H PRN HHN Shortness of Breath 02/29/20 11:26 03/05/20 11:25 Chlorhexidine Gluconate (Marci-Hex 2%) 1 applic DAILY@2000 TOPIC 03/03/20 20:00 06/01/20 19:59 Dextrose/Sodium Chloride 1,000 ml @ 50 mls/hr Q20H IV 02/29/20 03:00 03/28/20 02:59 03/03/20 09:00 Enoxaparin Sodium (Lovenox) 40 mg DAILY SUBQ 02/29/20 09:00 05/27/20 08:59 03/03/20 08:54 Ertapenem 1 gm/ Sodium Chloride 55 ml @ 110 mls/hr Q24H IVPB 03/02/20 18:00 03/07/20 17:59 03/02/20 19:19 Erythromycin (Herb-Ped) 100 mg Q6HR ORAL 03/02/20 13:00 03/09/20 12:59 03/03/20 05:07 Lactobacillus Acidophilus (Culturelle) 1 tab TWICE A DAY ORAL 02/29/20 13:00 05/29/20 12:59 03/03/20 08:53 Levetiracetam (Keppra) 700 mg Q12HR NG 02/29/20 09:00 03/28/20 08:59 03/03/20 08:53 Loperamide HCl (Imodium) 2 mg Q6H PRN GT Diarrhea 02/29/20 12:45 03/30/20 12:44 03/03/20 08:54 Metoclopramide HCl (Reglan) 10 mg Q6H PRN IVP Nausea & Vomiting 03/01/20 07:45 03/31/20 07:44 03/01/20 08:48 Midodrine (Pro-Amatine) 10 mg Q8H PRN ORAL SBP <95 02/29/20 02:34 05/27/20 02:33 Nitroglycerin (Ntg) 0.4 mg Q5M PRN SL Prn Chest Pain 02/29/20 02:20 03/28/20 07:59 Nystatin (Nystop Powder) 1 applic THREE TIMES A DAY TOPIC 02/29/20 09:00 05/27/20 12:59 03/03/20 09:12 Ondansetron HCl (Zofran) 4 mg Q6H PRN IVP Nausea & Vomiting 02/29/20 02:36 03/28/20 02:35 Polyethylene Glycol (Miralax) 17 gm DAILYPRN PRN ORAL Constipation 02/29/20 02:36 03/28/20 02:35 Potassium Phosphate 20 mm/ Sodium Chloride 281.6667 ml @ 46.944 m... ONCE ONCE IV 03/03/20 09:00 03/03/20 14:59 03/03/20 09:16 Potassium Chloride 100 ml @ 100 mls/hr Q1HR IVPB 03/03/20 08:00 03/03/20 11:59 03/03/20 09:57 Promethazine HCl/ Codeine (Phenergan with Codeine) 5 ml Q4H PRN ORAL For Cough 02/29/20 02:36 03/28/20 02:35 Risperidone (RisperDAL) 0.5 mg BIDPRN PRN ORAL mood/psychosis 02/29/20 02:37 04/12/20 02:36 Valproic Acid (Depakene) 250 mg BID@0900,2100 NG 02/29/20 09:00 03/30/20 08:59 03/03/20 08:53 Vitamin D (Vitamin D) 5,000 intlu QWEEK ORAL 03/05/20 09:00 03/28/20 08:59 Allergies: Coded Allergies: DIPHENHYDRAMINE (Verified Allergy, Unknown, 02/27/20) ROS Limited/Unobtainable: Yes Subjective 59 YO M admitted with respiratory failure. Now Sepsis and pneumonia. Cover for Int Med-Dr Go. Step Down Unit Objective Last Vital Signs Date Time Temp Pulse Resp B/P (MAP) Pulse Ox O2 Delivery O2 Flow Rate FiO2 03/03/20 07:30 98.2 98 20 141/90 (107) 96 03/03/20 07:00 Room Air 21 02/29/20 08:09 3.0 Laboratory Tests Test 03/03/20 01:00 03/03/20 04:00 Stool Occult Blood Pending White Blood Count 9.9 K/UL (4.8-10.8) Red Blood Count 3.29 M/UL (4.70-6.10) L Hemoglobin 10.4 G/DL (14.2-18.0) L Hematocrit 29.6 % (42.0-52.0) L Mean Corpuscular Volume 90 FL (80-99) Mean Corpuscular Hemoglobin 31.5 PG (27.0-31.0) H Mean Corpuscular Hemoglobin Concent 35.1 G/DL (32.0-36.0) Red Cell Distribution Width 11.1 % (11.6-14.8) L Platelet Count 222 K/UL (150-450) Mean Platelet Volume 6.4 FL (6.5-10.1) L Neutrophils (%) (Auto) 66.8 % (45.0-75.0) Lymphocytes (%) (Auto) 20.5 % (20.0-45.0) Monocytes (%) (Auto) 11.0 % (1.0-10.0) H Eosinophils (%) (Auto) 0.5 % (0.0-3.0) Basophils (%) (Auto) 1.3 % (0.0-2.0) Erythrocyte Sedimentation Rate 60 MM/HR (0-20) H Sodium Level 139 MMOL/L (136-145) Potassium Level 3.0 MMOL/L (3.5-5.1) L Chloride Level 103 MMOL/L (98-107) Carbon Dioxide Level 31 MMOL/L (21-32) Anion Gap 5 mmol/L (5-15) Blood Urea Nitrogen 7 mg/dL (7-18) Creatinine 0.9 MG/DL (0.55-1.30) Estimat Glomerular Filtration Rate > 60 mL/min (>60) Glucose Level 303 MG/DL (74-106) #H Hemoglobin A1c 4.2 % (4.3-6.0) L Calcium Level 8.0 MG/DL (8.5-10.1) L Phosphorus Level 2.4 MG/DL (2.5-4.9) L Magnesium Level 1.6 MG/DL (1.8-2.4) L Iron Level 28 ug/dL (50-175) L Total Iron Binding Capacity 126 ug/dL (250-450) L Percent Iron Saturation 22 % (15-50) Unsaturated Iron Binding 98 ug/dL (112-346) L Total Bilirubin 0.4 MG/DL (0.2-1.0) Gamma Glutamyl Transpeptidase 46 U/L (5-85) Aspartate Amino Transf (AST/SGOT) 26 U/L (15-37) Alanine Aminotransferase (ALT/SGPT) 39 U/L (12-78) Alkaline Phosphatase 68 U/L (46-116) Lactate Dehydrogenase 153 U/L (81-234) C-Reactive Protein, Quantitative 3.8 mg/dL (0.00-0.90) H Total Protein 5.7 G/DL (6.4-8.2) L Albumin 2.1 G/DL (3.4-5.0) L Globulin 3.6 g/dL Albumin/Globulin Ratio 0.6 (1.0-2.7) L Vitamin B12 Level > 2000 PG/ML (193-986) H Folate 19.4 NG/ML (8.6-58.9) Microbiology Date/Time Source Procedure Growth Status 03/01/20 12:25 Blood Blood Culture - Preliminary NO GROWTH AFTER 24 HOURS Resulted 03/01/20 12:15 Blood Blood Culture - Preliminary NO GROWTH AFTER 24 HOURS Resulted 02/29/20 13:10 Nasopharynx Coronavirus COVID-19 PCR (TUNG) - Final Complete Intake and Output 03/02/20 03/03/20 19:00 07:00 Intake Total 50 ml 800 ml Output Total 2575 ml Balance 50 ml -1775 ml Free Water 150 ml IV Total 50 ml 550 ml Tube Feeding 100 ml Output Urine Total 2500 ml Stool Total 75 ml Objective Objective GENERAL: Patient chronically ill-looking, not distress, on Room air sat 98%. HEAD AND NECK: Pupils are equal and reactive to light. Anicteric. Neck was supple. No JVD. LUNGS: Good air entry. No wheezing or rales. Decreased air in bases. HEART: S1, S2. Tachycardic. No murmur or gallop. ABDOMEN: Soft, nondistended, nontender. PEG site is clean. EXTREMITIES: No cyanosis or clubbing. Mildly edematous in the upper extremity. Right upper extremity has a PICC line. NEUROLOGIC: Very limited secondary to patient's status. Patient is moving all extremities spontaneously slowly; cranial nerves II through XII is limited evaluation. RECTAL/GENITOURINARY: Refused and deferred. PSYCHIATRIC: Mood and affect unable to obtain. Assessment/Plan Assessment/Plan Assessment/Plan Assessment/Plan Assessment/Plan ASSESSMENT: 1. Acute hypoxemic respiratory failure, possible COVID-19 infection. 2. Bilateral pneumonia=ESBL Klebsiella 3. Sepsis=ESBL Klebsiella 4. Severe dehydration. 5. Lactic acidosis. 6. Klebsiella ESBL bacteremia, possible line sepsis. 7. Dysphagia, status post PEG. 8. Psychiatric disorder. 9. intermediate resident. 10. Elevated Troponin most likely due to Demand ischemia. 11. Hypokalemia PLAN: In [facility], COVID-[address] Hansen=Pulmonary Critical Care, Dr. Stokes=Infectious Disease Dr. Barragan = Cardiology consultation. Abx: vancomycin and Meropenem IV Removed of the PICC line. Code status: Full Code. DVT prophylaxis: Lovenox Inj. Follow up with the laboratory as well as culture. Lomotil PRN 1st COVID-19 test negative Nephrology=Obey Rodgers MD March 03, 2020 10:58
[2020-03-03 11:20] VITALS: BP 132/92
--- NOTE | 2020-03-03 11:30 | NUR ---
NURSE NOTES: The patient is mildly agitated. Vital signs noted. Will closely monitor the patient. Will continue plan of care.
--- NOTE | 2020-03-03 11:53 | Pulmonology Progress Note ---
Subjective ROS Limited/Unobtainable: Yes Allergies: Coded Allergies: DIPHENHYDRAMINE (Verified Allergy, Unknown, 02/27/20) Objective Last 24 Hour Vital Signs Date Time Temp Pulse Resp B/P (MAP) Pulse Ox O2 Delivery O2 Flow Rate FiO2 03/03/20 11:20 99.5 105 20 132/92 (105) 95 03/03/20 08:00 Room Air 03/03/20 07:30 98.2 98 20 141/90 (107) 96 03/03/20 07:27 96 03/03/20 07:00 96 Room Air 21 03/03/20 04:00 98.4 87 20 128/87 (101) 98 03/03/20 04:00 Room Air 03/03/20 04:00 90 03/03/20 04:00 90 03/03/20 00:00 97.8 83 20 124/82 (96) 97 03/03/20 00:00 Room Air 03/02/20 23:32 87 03/02/20 20:00 98.1 85 20 134/87 (103) 95 03/02/20 20:00 Room Air 03/02/20 19:34 91 03/02/20 19:24 97 Room Air 21 03/02/20 17:19 100.1 03/02/20 16:00 Room Air 03/02/20 16:00 101 03/02/20 16:00 100.5 98 19 131/81 (98) 95 03/02/20 12:00 98.1 99 19 133/85 (101) 03/02/20 12:00 Room Air 03/02/20 12:00 105 Intake and Output 03/02/20 03/03/20 19:00 07:00 Intake Total 50 ml 800 ml Output Total 2575 ml Balance 50 ml -1775 ml Free Water 150 ml IV Total 50 ml 550 ml Tube Feeding 100 ml Output Urine Total 2500 ml Stool Total 75 ml General Appearance: no acute distress HEENT: normocephalic, atraumatic, anicteric Respiratory: rhonchi - bilaterally Cardiovascular: normal peripheral pulses, normal rate Abdomen: normal bowel sounds, soft, non tender Extremities: no edema, pedal pulses normal Neurologic: aphasia, depressed affect Musculoskeletal: atrophy - BLE Microbiology Date/Time Source Procedure Growth Status 03/01/20 12:25 Blood Blood Culture - Preliminary NO GROWTH AFTER 24 HOURS Resulted 5/18/20 12:15 Blood Blood Culture - Preliminary NO GROWTH AFTER 24 HOURS Resulted 02/29/20 13:10 Nasopharynx Coronavirus COVID-19 PCR (TUNG) - Final Complete Laboratory Tests 03/03/20 01:00: Stool Occult Blood Positive 03/03/20 04:00: White Blood Count 9.9, Red Blood Count 3.29L, Hemoglobin 10.4L, Hematocrit 29.6L , Mean Corpuscular Volume 90, Mean Corpuscular Hemoglobin 31.5H, Mean Corpuscular Hemoglobin Concent 35.1, Red Cell Distribution Width 11.1L, Platelet Count 222, Mean Platelet Volume 6.4L, Neutrophils (%) (Auto) 66.8, Lymphocytes (%) (Auto) 20.5, Monocytes (%) (Auto) 11.0H, Eosinophils (%) (Auto) 0.5, Basophils (%) (Auto) 1.3, Erythrocyte Sedimentation Rate 60H, Sodium Level 139, Potassium Level 3.0L, Chloride Level 103, Carbon Dioxide Level 31, Anion Gap 5, Blood Urea Nitrogen 7, Creatinine 0.9, Estimat Glomerular Filtration Rate > 60, Glucose Level 303#H, Hemoglobin A1c 4.2L, Calcium Level 8.0L, Phosphorus Level 2.4L, Magnesium Level 1.6L, Iron Level 28L, Total Iron Binding Capacity 126L, Percent Iron Saturation 22, Unsaturated Iron Binding 98L, Total Bilirubin 0.4, Gamma Glutamyl Transpeptidase 46, Aspartate Amino Transf (AST/ SGOT) 26, Alanine Aminotransferase (ALT/SGPT) 39, Alkaline Phosphatase 68, Lactate Dehydrogenase 153, C-Reactive Protein, Quantitative 3.8H, Total Protein 5.7L, Albumin 2.1L, Globulin 3.6, Albumin/Globulin Ratio 0.6L, Vitamin B12 Level > 2000H, Folate 19.4 Current Medications Medications (Trade) Dose Ordered Sig/Damion Route PRN Reason Start Time Stop Time Status Last Admin Dose Admin Acetaminophen (Tylenol) 650 mg Q4H PRN NG Temp >100.5 02/29/20 02:30 03/28/20 06:29 03/02/20 16:49 Acetaminophen (Tylenol) 650 mg Q4H PRN ORAL fever 02/29/20 02:28 03/28/20 02:27 Albuterol Sulfate (Proventil) 2.5 mg Q4H PRN HHN Shortness of Breath 02/29/20 11:26 03/05/20 11:25 Chlorhexidine Gluconate (Marci-Hex 2%) 1 applic DAILY@2000 TOPIC 03/03/20 20:00 06/01/20 19:59 Dextrose/Sodium Chloride 1,000 ml @ 50 mls/hr Q20H IV 02/29/20 03:00 03/28/20 02:59 03/03/20 09:00 Enoxaparin Sodium (Lovenox) 40 mg DAILY SUBQ 02/29/20 09:00 05/27/20 08:59 03/03/20 08:54 Ertapenem 1 gm/ Sodium Chloride 55 ml @ 110 mls/hr Q24H IVPB 03/02/20 18:00 03/07/20 17:59 03/02/20 19:19 Erythromycin (Herb-Ped) 100 mg Q6HR ORAL 03/02/20 13:00 03/09/20 12:59 03/03/20 05:07 Lactobacillus Acidophilus (Culturelle) 1 tab TWICE A DAY ORAL 02/29/20 13:00 05/29/20 12:59 03/03/20 08:53 Levetiracetam (Keppra) 700 mg Q12HR NG 02/29/20 09:00 03/28/20 08:59 03/03/20 08:53 Loperamide HCl (Imodium) 2 mg Q6H PRN GT Diarrhea 02/29/20 12:45 03/30/20 12:44 03/03/20 08:54 Metoclopramide HCl (Reglan) 10 mg Q6H PRN IVP Nausea & Vomiting 03/01/20 07:45 03/31/20 07:44 03/01/20 08:48 Midodrine (Pro-Amatine) 10 mg Q8H PRN ORAL SBP <95 02/29/20 02:34 05/27/20 02:33 Nitroglycerin (Ntg) 0.4 mg Q5M PRN SL Prn Chest Pain 02/29/20 02:20 03/28/20 07:59 Nystatin (Nystop Powder) 1 applic THREE TIMES A DAY TOPIC 02/29/20 09:00 05/27/20 12:59 03/03/20 09:12 Ondansetron HCl (Zofran) 4 mg Q6H PRN IVP Nausea & Vomiting 02/29/20 02:36 03/28/20 02:35 Polyethylene Glycol (Miralax) 17 gm DAILYPRN PRN ORAL Constipation 02/29/20 02:36 03/28/20 02:35 Potassium Phosphate 20 mm/ Sodium Chloride 281.6667 ml @ 46.944 m... ONCE ONCE IV 03/03/20 09:00 03/03/20 14:59 03/03/20 09:16 Potassium Chloride 100 ml @ 100 mls/hr Q1HR IVPB 03/03/20 08:00 03/03/20 11:59 03/03/20 11:00 Promethazine HCl/ Codeine (Phenergan with Codeine) 5 ml Q4H PRN ORAL For Cough 02/29/20 02:36 03/28/20 02:35 Risperidone (RisperDAL) 0.5 mg BIDPRN PRN ORAL mood/psychosis 02/29/20 02:37 04/12/20 02:36 Valproic Acid (Depakene) 250 mg BID@0900,2100 NG 02/29/20 09:00 03/30/20 08:59 03/03/20 08:53 Vitamin D (Vitamin D) 5,000 intlu QWEEK ORAL 03/05/20 09:00 03/28/20 08:59 Assessment/Plan Problems: (1) Acute respiratory failure (2) Nosocomial pneumonia (3) Severe sepsis (4) Attention to G-tube (5) Suspected 2019 novel coronavirus infection (6) Muscle wasting and atrophy, not elsewhere classified, multiple sites Assessment/Plan looks better covid - negative X 1 wbc decreasing continue abx check blood cultures aspiration precaution K supplement. again, K austin to 3.0 today Ana Maria Hansen MD March 03, 2020 11:53
[2020-03-03] MEDS: Acetaminophen 650mg/20.3ml NG PRN ×2 (12:03→17:56)
[2020-03-03] MEDS: Promethazine/Codeine 5ml UD ORAL PRN ×2 (12:03→17:56)
--- NOTE | 2020-03-03 12:20 | NUR ---
NURSE NOTES: PRN Tylenol for fever and PRN cough syrup given per order. Will closely monitor the patient. Will continue plan of care.
--- NOTE | 2020-03-03 13:19 | Infectious Diseases Prog Note ---
Assessment/Plan Assessment/Plan Assessment: Severe Sepsis Acute hypoxic respiratory failure sp NRB- now at RA PNA - CoVID neg x2 ESBL K.pna bacteremia and pneumonia -03/01 CXR: Slight worsening of bibasilar infiltrates. -CXR: Basilar infiltrates. -Bcx 3/ ESBL K.pna (S Levo, Meropenem, ZOsyn); 03/01 Bcx NTD -sp cx ESBL K.pna -02/27 sp removal PICC Line; cath tip cx NTD -02/26 SARS-COV2 pCR neg; 02/28 SARS-COB 2 pcr neg -legionella ag urine neg Fever; improving Leukocytosis; resolved -u/a no pyuria -Cdiff neg Lactic acidosis, SP Princess intertrigo muscle weakness and atrophy (not characterized) psychiatric disorder dysphagia s/p [facility] resident (recently transferred from [place] to [facility]) Plan: -Continue Ertapenem #2 (abx d #6/10-14) 03/01 SP IV Vancomycin, and azithromycin #4 02/27/20 SP Zosyn #1, CEfepime x1, FLagyl x1 -f/u cx -Monitor CBC/CMP, temperatures -COVID19 neg x2; continue enhanced respiratory isolation for now -aspiration precautions -f/u repeat Bcx x2 -CXR am Thank you for consulting [facility]. Will continue to follow along wiht you. Subjective Allergies: Coded Allergies: DIPHENHYDRAMINE (Verified Allergy, Unknown, 02/27/20) Subjective TM 100.5 at RA leukocytosis resolved 2nd COvid neg Objective Vital Signs Last 24 Hour Vital Signs Date Time Temp Pulse Resp B/P (MAP) Pulse Ox O2 Delivery O2 Flow Rate FiO2 03/03/20 12:33 99.2 03/03/20 12:00 Room Air 03/03/20 12:00 125 03/03/20 11:20 99.5 105 20 132/92 (105) 95 03/03/20 08:00 Room Air 03/03/20 07:30 98.2 98 20 141/90 (107) 96 03/03/20 07:27 96 03/03/20 07:00 96 Room Air 21 03/03/20 04:00 98.4 87 20 128/87 (101) 98 03/03/20 04:00 Room Air 03/03/20 04:00 90 03/03/20 04:00 90 03/03/20 00:00 97.8 83 20 124/82 (96) 97 03/03/20 00:00 Room Air 03/02/20 23:32 87 03/02/20 20:00 98.1 85 20 134/87 (103) 95 03/02/20 20:00 Room Air 03/02/20 19:34 91 03/02/20 19:24 97 Room Air 21 03/02/20 16:00 Room Air 03/02/20 16:00 101 03/02/20 16:00 100.5 98 19 131/81 (98) 95 Height (Feet): 5 Height (Inches): 5.00 Weight (Pounds): 151 Objective Gen: no respiratory distress Head: normocephalic Lungs: no tachypnea or use of accessory resp muscles Abd: not distended Microbiology Date/Time Source Procedure Growth Status 03/01/20 12:25 Blood Blood Culture - Preliminary NO GROWTH AFTER 24 HOURS Resulted 03/01/20 12:15 Blood Blood Culture - Preliminary NO GROWTH AFTER 24 HOURS Resulted Laboratory Tests Test 03/03/20 01:00 03/03/20 04:00 Stool Occult Blood Positive (NEGATIVE) White Blood Count 9.9 K/UL (4.8-10.8) Red Blood Count 3.29 M/UL (4.70-6.10) L Hemoglobin 10.4 G/DL (14.2-18.0) L Hematocrit 29.6 % (42.0-52.0) L Mean Corpuscular Volume 90 FL (80-99) Mean Corpuscular Hemoglobin 31.5 PG (27.0-31.0) H Mean Corpuscular Hemoglobin Concent 35.1 G/DL (32.0-36.0) Red Cell Distribution Width 11.1 % (11.6-14.8) L Platelet Count 222 K/UL (150-450) Mean Platelet Volume 6.4 FL (6.5-10.1) L Neutrophils (%) (Auto) 66.8 % (45.0-75.0) Lymphocytes (%) (Auto) 20.5 % (20.0-45.0) Monocytes (%) (Auto) 11.0 % (1.0-10.0) H Eosinophils (%) (Auto) 0.5 % (0.0-3.0) Basophils (%) (Auto) 1.3 % (0.0-2.0) Erythrocyte Sedimentation Rate 60 MM/HR (0-20) H Sodium Level 139 MMOL/L (136-145) Potassium Level 3.0 MMOL/L (3.5-5.1) L Chloride Level 103 MMOL/L (98-107) Carbon Dioxide Level 31 MMOL/L (21-32) Anion Gap 5 mmol/L (5-15) Blood Urea Nitrogen 7 mg/dL (7-18) Creatinine 0.9 MG/DL (0.55-1.30) Estimat Glomerular Filtration Rate > 60 mL/min (>60) Glucose Level 303 MG/DL (74-106) #H Hemoglobin A1c 4.2 % (4.3-6.0) L Calcium Level 8.0 MG/DL (8.5-10.1) L Phosphorus Level 2.4 MG/DL (2.5-4.9) L Magnesium Level 1.6 MG/DL (1.8-2.4) L Iron Level 28 ug/dL (50-175) L Total Iron Binding Capacity 126 ug/dL (250-450) L Percent Iron Saturation 22 % (15-50) Unsaturated Iron Binding 98 ug/dL (112-346) L Total Bilirubin 0.4 MG/DL (0.2-1.0) Gamma Glutamyl Transpeptidase 46 U/L (5-85) Aspartate Amino Transf (AST/SGOT) 26 U/L (15-37) Alanine Aminotransferase (ALT/SGPT) 39 U/L (12-78) Alkaline Phosphatase 68 U/L (46-116) Lactate Dehydrogenase 153 U/L (81-234) C-Reactive Protein, Quantitative 3.8 mg/dL (0.00-0.90) H Total Protein 5.7 G/DL (6.4-8.2) L Albumin 2.1 G/DL (3.4-5.0) L Globulin 3.6 g/dL Albumin/Globulin Ratio 0.6 (1.0-2.7) L Vitamin B12 Level > 2000 PG/ML (193-986) H Folate 19.4 NG/ML (8.6-58.9) Current Medications Medications (Trade) Dose Ordered Sig/Damion Route PRN Reason Start Time Stop Time Status Last Admin Dose Admin Acetaminophen (Tylenol) 650 mg Q4H PRN NG Temp >100.5 02/29/20 02:30 03/28/20 06:29 03/03/20 12:03 Acetaminophen (Tylenol) 650 mg Q4H PRN ORAL fever 02/29/20 02:28 03/28/20 02:27 Albuterol Sulfate (Proventil) 2.5 mg Q4H PRN HHN Shortness of Breath 02/29/20 11:26 03/05/20 11:25 Chlorhexidine Gluconate (Marci-Hex 2%) 1 applic DAILY@2000 TOPIC 03/03/20 20:00 06/01/20 19:59 Dextrose/Sodium Chloride 1,000 ml @ 50 mls/hr Q20H IV 02/29/20 03:00 03/28/20 02:59 03/03/20 09:00 Enoxaparin Sodium (Lovenox) 40 mg DAILY SUBQ 02/29/20 09:00 05/27/20 08:59 03/03/20 08:54 Ertapenem 1 gm/ Sodium Chloride 55 ml @ 110 mls/hr Q24H IVPB 03/02/20 18:00 03/07/20 17:59 03/02/20 19:19 Erythromycin (Herb-Ped) 100 mg Q6HR ORAL 03/02/20 13:00 03/09/20 12:59 03/03/20 12:02 Lactobacillus Acidophilus (Culturelle) 1 tab TWICE A DAY ORAL 02/29/20 13:00 05/29/20 12:59 03/03/20 08:53 Levetiracetam (Keppra) 700 mg Q12HR NG 02/29/20 09:00 03/28/20 08:59 03/03/20 08:53 Loperamide HCl (Imodium) 2 mg Q6H PRN GT Diarrhea 02/29/20 12:45 03/30/20 12:44 03/03/20 08:54 Metoclopramide HCl (Reglan) 10 mg Q6H PRN IVP Nausea & Vomiting 03/01/20 07:45 03/31/20 07:44 03/01/20 08:48 Midodrine (Pro-Amatine) 10 mg Q8H PRN ORAL SBP <95 02/29/20 02:34 05/27/20 02:33 Nitroglycerin (Ntg) 0.4 mg Q5M PRN SL Prn Chest Pain 02/29/20 02:20 03/28/20 07:59 Nystatin (Nystop Powder) 1 applic THREE TIMES A DAY TOPIC 02/29/20 09:00 05/27/20 12:59 03/03/20 12:10 Ondansetron HCl (Zofran) 4 mg Q6H PRN IVP Nausea & Vomiting 02/29/20 02:36 03/28/20 02:35 Polyethylene Glycol (Miralax) 17 gm DAILYPRN PRN ORAL Constipation 02/29/20 02:36 03/28/20 02:35 Potassium Phosphate 20 mm/ Sodium Chloride 281.6667 ml @ 46.944 m... ONCE ONCE IV 03/03/20 09:00 03/03/20 14:59 03/03/20 09:16 Promethazine HCl/ Codeine (Phenergan with Codeine) 5 ml Q4H PRN ORAL For Cough 02/29/20 02:36 03/28/20 02:35 03/03/20 12:03 Risperidone (RisperDAL) 0.5 mg BIDPRN PRN ORAL mood/psychosis 02/29/20 02:37 04/12/20 02:36 Valproic Acid (Depakene) 250 mg BID@0900,2100 NG 02/29/20 09:00 03/30/20 08:59 03/03/20 08:53 Vitamin D (Vitamin D) 5,000 intlu QWEEK ORAL 03/05/20 09:00 03/28/20 08:59 Charlene Stokes M.D. March 03, 2020 13:19
--- NOTE | 2020-03-03 13:30 | NUR ---
NURSE NOTES: The patient is resting on the bed and sleeping comfortably. The rhythm went back to NSR and less cough noted. Will closely monitor the patient. Will continue plan of care.
--- NOTE | 2020-03-03 14:00 | NUR ---
NURSE NOTES: Notified Dr. Liu regarding positive OB stool result. No new order at this time. Will continue plan of care.
--- NOTE | 2020-03-03 14:29 | NUR ---
*-* DISCHARGE PLANNING *-* PATIENT HAS BEEN REFERRED TO: [facility] F: [phone]
--- NOTE | 2020-03-03 14:36 | NUR ---
CASE MANAGEMENT: REVIEW SI: ESBL K.PNA BACTEREMIA G-TUBE TO J-TUBE PLACEMENT OB STOOL PENDING T 99.5 HR 125 RR 20 BP 141/90 SAT 95% ROOM AIR H/H 10.4/29.6 K 3.0 PHOS 2.4 MAG 1.6 IS: KCl 20 MEQ @ BOLUS X1 D5 NS IVF @ 50ML/HR ERTAPENEM IV Q24HR KEPPRA NGT Q12HR LOVENOX SUBQ QD NPO STEP DOWN UNIT STATUS DCP: PATIENT IS FROM [facility]
[2020-03-03 16:00] VITALS: BP 143/95
--- NOTE | 2020-03-03 16:00 | NUR ---
NURSE NOTES: The patient is sleeping comfortably without acute distress or shortness of breath. Tolerating well in room air. Will closely monitor the patient. Will continue plan of care.
--- NOTE | 2020-03-03 17:00 | NUR ---
NURSE NOTES: Bed bath given to the patient. Tolerated well. Oxygen saturation within normal range in room air. Mental status remains the same. Wound care provided to the patient. Vital signs noted. Will continue plan of care.
[2020-03-03] MEDS: Ertapenem 1 GM in NS 55 ML IVPB SCH (17:55)
--- NOTE | 2020-03-03 18:00 | NUR ---
NURSE NOTES: Medication administered per order. PRN medications of Tylenol for fever, cough syrup, and Immodium for diarrhea administered per order. Cooling measure applied for fever. Will closely monitor the patient. Will continue plan of care.
--- NOTE | 2020-03-03 19:10 | NUR ---
HAND-OFF: Report given to ASAD Farris. The patient is resting on the bed without acute distress or shortness of breath. The patient is on stable condition. Endorsed plan of care.
--- NOTE | 2020-03-03 19:11 | NUR ---
NURSE NOTES: Received patient from ASAD Millan. Patient is aaox 0 with garbled speech, eyes open with minimal tracking, no acute distress, on room air, and on quality assurance monitor final. Patient has a G-tube flushing with no issues and running Jevity 1.2 at 15/hr. Vargas catheter is draining and is intact. Bilateral heels and sacral stage 2 noted. Patient has right upper arm PICC intact with no signs of infection and patent. NPO after midnight for procedure and seizure precautions implemented. Bed at its lowest position, call light in reach , bed rails x3 up, and bed locked. Will continue to monitor.
[2020-03-03 20:00] VITALS: BP 144/98
[2020-03-03] MEDS ORDERED: D5W 275ml ONE (20:59)
[2020-03-03] MEDS ORDERED: NS 275ml ONE (20:59)
[2020-03-03] MEDS ORDERED: D5 1/2NS 1000ml IV ONE (20:59)
[2020-03-03] MEDS ORDERED: Tubing IV Secondary IV ONE (20:59)
[2020-03-03] MEDS: Dyna-Hex 2% Top Sol 2oz TOPIC SCH (21:15)
--- NOTE | 2020-03-03 21:17 | Cardiology Progress Note ---
Assessment/Plan Assessment/Plan 1. Septic shock. 2. Respiratory insufficiency. 3. Lactic acidosis. 4. Abnormal cardiac enzymes, likely demand related. 5. kleb, bacteremia covid #1 and #2 neg wbc much i[proved k low supplemented cxr worsening infiltrate fever still dominick grade reepat bc are neg telel noted sinus bp now on the higer side may be related to saline loading used ot be on midodrine now off not oan ny antihypertensive will observe for another days before adding meds Subjective ROS Limited/Unobtainable: Yes Subjective he patient is resting on the bed and sleeping comfortably. The rhythm went back to NSR and less cough noted. Objective Last 24 Hour Vital Signs Date Time Temp Pulse Resp B/P (MAP) Pulse Ox O2 Delivery O2 Flow Rate FiO2 03/03/20 18:26 99.0 03/03/20 16:00 98 03/03/20 16:00 Room Air 03/03/20 16:00 99.2 94 20 143/95 (111) 100 03/03/20 12:00 Room Air 03/03/20 12:00 125 03/03/20 11:20 99.5 105 20 132/92 (105) 95 03/03/20 08:00 Room Air 03/03/20 07:30 98.2 98 20 141/90 (107) 96 03/03/20 07:27 96 03/03/20 07:00 96 Room Air 21 03/03/20 04:00 98.4 87 20 128/87 (101) 98 03/03/20 04:00 Room Air 03/03/20 04:00 90 03/03/20 04:00 90 03/03/20 00:00 97.8 83 20 124/82 (96) 97 03/03/20 00:00 Room Air 03/02/20 23:32 87 General Appearance: no apparent distress, patient on isolation, isolation precautions Intake and Output 03/02/20 03/03/20 19:00 07:00 Intake Total 50 ml 850 ml Output Total 2575 ml Balance 50 ml -1725 ml Free Water 150 ml IV Total 50 ml 600 ml Tube Feeding 100 ml Output Urine Total 2500 ml Stool Total 75 ml Laboratory Tests Test 03/03/20 01:00 03/03/20 04:00 Stool Occult Blood Positive (NEGATIVE) White Blood Count 9.9 K/UL (4.8-10.8) Red Blood Count 3.29 M/UL (4.70-6.10) L Hemoglobin 10.4 G/DL (14.2-18.0) L Hematocrit 29.6 % (42.0-52.0) L Mean Corpuscular Volume 90 FL (80-99) Mean Corpuscular Hemoglobin 31.5 PG (27.0-31.0) H Mean Corpuscular Hemoglobin Concent 35.1 G/DL (32.0-36.0) Red Cell Distribution Width 11.1 % (11.6-14.8) L Platelet Count 222 K/UL (150-450) Mean Platelet Volume 6.4 FL (6.5-10.1) L Neutrophils (%) (Auto) 66.8 % (45.0-75.0) Lymphocytes (%) (Auto) 20.5 % (20.0-45.0) Monocytes (%) (Auto) 11.0 % (1.0-10.0) H Eosinophils (%) (Auto) 0.5 % (0.0-3.0) Basophils (%) (Auto) 1.3 % (0.0-2.0) Erythrocyte Sedimentation Rate 60 MM/HR (0-20) H Sodium Level 139 MMOL/L (136-145) Potassium Level 3.0 MMOL/L (3.5-5.1) L Chloride Level 103 MMOL/L (98-107) Carbon Dioxide Level 31 MMOL/L (21-32) Anion Gap 5 mmol/L (5-15) Blood Urea Nitrogen 7 mg/dL (7-18) Creatinine 0.9 MG/DL (0.55-1.30) Estimat Glomerular Filtration Rate > 60 mL/min (>60) Glucose Level 303 MG/DL (74-106) #H Hemoglobin A1c 4.2 % (4.3-6.0) L Calcium Level 8.0 MG/DL (8.5-10.1) L Phosphorus Level 2.4 MG/DL (2.5-4.9) L Magnesium Level 1.6 MG/DL (1.8-2.4) L Iron Level 28 ug/dL (50-175) L Total Iron Binding Capacity 126 ug/dL (250-450) L Percent Iron Saturation 22 % (15-50) Unsaturated Iron Binding 98 ug/dL (112-346) L Total Bilirubin 0.4 MG/DL (0.2-1.0) Gamma Glutamyl Transpeptidase 46 U/L (5-85) Aspartate Amino Transf (AST/SGOT) 26 U/L (15-37) Alanine Aminotransferase (ALT/SGPT) 39 U/L (12-78) Alkaline Phosphatase 68 U/L (46-116) Lactate Dehydrogenase 153 U/L (81-234) C-Reactive Protein, Quantitative 3.8 mg/dL (0.00-0.90) H Total Protein 5.7 G/DL (6.4-8.2) L Albumin 2.1 G/DL (3.4-5.0) L Globulin 3.6 g/dL Albumin/Globulin Ratio 0.6 (1.0-2.7) L Vitamin B12 Level > 2000 PG/ML (193-986) H Folate 19.4 NG/ML (8.6-58.9) Microbiology Date/Time Source Procedure Growth Status 03/01/20 12:25 Blood Blood Culture - Preliminary NO GROWTH AFTER 24 HOURS Resulted 03/01/20 12:15 Blood Blood Culture - Preliminary NO GROWTH AFTER 24 HOURS Resulted Objective per dr morris LUNGS: Good air entry. No wheezing or rales. Decreased air in bases. HEART: S1, S2. Tachycardic. No murmur or gallop. ABDOMEN: Soft, nondistended, nontender. PEG site is clean. EXTREMITIES: No cyanosis or clubbing. Mildly edematous in the upper extremity. Right upper extremity has a PICC line Antwon Arzate MD March 03, 2020 21:17
[2020-03-04] VITALS: BP 121/80
--- NOTE | 2020-03-04 | NUR ---
NURSE NOTES: Patient is resting well with no acute distress.
[2020-03-04] MEDS: Erythromycin Ethylsuccinate 200mg/5ml Susp ORAL SCH ×5 (00:19→23:03)
[2020-03-04 04:00] VITALS: BP 117/85
[2020-03-04 04:55] LABS: BASOPHILS % (AUTO) 1.4 % (0.0-2.0); EOSINOPHILS % (AUTO) 2.1 % (0.0-3.0); HEMATOCRIT 31.7 % (42.0-52.0); HEMOGLOBIN 11.4 G/DL (14.2-18.0); LYMPHOCYTES % (AUTO) 27.2 % (20.0-45.0); MEAN CORPUSCULAR VOLUME 89 FL (80-99); MONOCYTES % (AUTO) 12.8 % (1.0-10.0); NEUTROPHILS % (AUTO) 56.5 % (45.0-75.0); PLATELET COUNT 301 K/UL (150-450); RED BLOOD COUNT 3.54 M/UL (4.70-6.10); RED CELL DISTRIBUTION WIDTH 11.1 % (11.6-14.8); WHITE BLOOD COUNT 9.4 K/UL (4.8-10.8)
[2020-03-04 05:41] LABS: ALANINE AMINOTRANSFERASE 40 U/L (12-78); ALBUMIN 2.4 G/DL (3.4-5.0); ALBUMIN/GLOBULIN RATIO 0.6 (1.0-2.7); ALKALINE PHOSPHATASE 81 U/L (46-116); ANION GAP 6 mmol/L (5-15); ASPARTATE AMINO TRANSFERASE 23 U/L (15-37); BILIRUBIN,TOTAL 0.5 MG/DL (0.2-1.0); BLOOD UREA NITROGEN 7 mg/dL (7-18); CALCIUM 8.3 MG/DL (8.5-10.1); CARBON DIOXIDE 31 MMOL/L (21-32); CHLORIDE 101 MMOL/L (98-107); CREATININE 0.8 MG/DL (0.55-1.30); PHOSPHORUS 3.5 MG/DL (2.5-4.9); POTASSIUM 3.5 MMOL/L (3.5-5.1); SODIUM 138 MMOL/L (136-145)
[2020-03-04] MEDS: D5 1/2NS 1,000 ML IV SCH ×2 (06:09→23:03)
--- NOTE | 2020-03-04 07:20 | NUR ---
HAND-OFF: Report given to ASAD Feng.
--- NOTE | 2020-03-04 07:21 | NUR ---
NURSE NOTES: Received patient in bed. Awake, non verbal at this time. On room air. Kept NPO. With mcgee cath and rectal tube draining by gravity. Contact and droplet isolation observed. Bed in lowest position. Bed alarm On. Will continue plan of care.
[2020-03-04 08:00] VITALS: BP 142/90
--- NOTE | 2020-03-04 08:12 | NUR ---
RADIOLOGY DEPT., CHEST X-RAY DONE.-P.DYE
[2020-03-04] MEDS: levETIRAcetam 500mg/5ml Liquid NG SCH ×2 (08:13→20:21)
[2020-03-04] MEDS: Valproic Acid 250mg/5ml Liquid NG SCH ×2 (08:13→20:20)
[2020-03-04] MEDS: Lactobacillus-GG tablet ORAL SCH ×2 (08:13→20:20)
[2020-03-04] MEDS: Nystatin Powder 100,000 units/gm 15gm TOPIC SCH ×3 (08:19→17:56)
[2020-03-04] MEDS: Enoxaparin 40mg Inj SUBQ SCH (09:00)
--- NOTE | 2020-03-04 09:46 | Diagnostic Imaging Report ---
Procedure: XRAY Chest 1v Reason for study: Reason For Exam: [id number] Comparison films: 03/01/2020. FINDINGS: Right PICC line in place with the tip in the SVC. No pneumothorax. Vascularity is normal. Mild hazy infiltrates noted in both lung bases which are slightly improved compared to previous exam. Cardiac and mediastinal silhouette are within normal limits. CP angles are sharp. The bony thorax appear unremarkable. IMPRESSION: New right PICC line in place in good position. Slightly improved bibasilar infiltrates.
--- NOTE | 2020-03-04 10:06 | General Progress Note ---
Assessment/Plan Problem List: (1) Type 2 myocardial infarction ICD Codes: I21.A1 - Myocardial infarction type 2 SNOMED: 39555001 (2) Nosocomial pneumonia ICD Codes: J18.9 - Pneumonia, unspecified organism; Y95 - Nosocomial condition SNOMED: 216812485 (3) Attention to G-tube ICD Codes: Z43.1 - Encounter for attention to gastrostomy; R65.20 - Severe sepsis without septic shock SNOMED: 517088112, 476103917, 814771312 (4) Severe sepsis ICD Codes: A41.9 - Sepsis, unspecified organism; R65.20 - Severe sepsis without septic shock SNOMED: 47321622 Status: stable, unchanged Assessment/Plan: elevated residuals despite reglan IV needs GJT placement plan for Sunday Subjective ROS Limited/Unobtainable: No Allergies: Coded Allergies: DIPHENHYDRAMINE (Verified Allergy, Unknown, 02/27/20) Objective Last 24 Hour Vital Signs Date Time Temp Pulse Resp B/P (MAP) Pulse Ox O2 Delivery O2 Flow Rate FiO2 03/04/20 08:00 97.9 107 19 142/90 (107) 100 03/04/20 08:00 Room Air 03/04/20 07:30 114 03/04/20 04:00 98.4 110 19 117/85 (96) 97 03/04/20 04:00 Room Air 03/04/20 03:24 102 03/04/20 00:00 90 03/04/20 00:00 Room Air 03/04/20 00:00 98.6 98 16 121/80 (94) 100 03/03/20 20:01 90 03/03/20 20:00 99.2 90 22 144/98 (113) 99 03/03/20 20:00 97 Room Air 21 03/03/20 20:00 Room Air 03/03/20 18:26 99.0 03/03/20 16:00 98 03/03/20 16:00 Room Air 03/03/20 16:00 99.2 94 20 143/95 (111) 100 03/03/20 12:00 Room Air 03/03/20 12:00 125 03/03/20 11:20 99.5 105 20 132/92 (105) 95 Intake and Output 03/03/20 03/04/20 19:00 07:00 Intake Total 1486.664 ml 922.5 ml Output Total 1400 ml 925 ml Balance 86.664 ml -2.5 ml Free Water 150 ml 300 ml IV Total 1236.664 ml 542.5 ml Tube Feeding 100 ml 80 ml Output Urine Total 1300 ml 925 ml Stool Total 100 ml 0 ml # Voids 2 # Bowel Movements 2 Laboratory Tests 03/04/20 03:30: White Blood Count 9.4, Red Blood Count 3.54L, Hemoglobin 11.4L, Hematocrit 31.7L , Mean Corpuscular Volume 89, Mean Corpuscular Hemoglobin 32.1H, Mean Corpuscular Hemoglobin Concent 35.9, Red Cell Distribution Width 11.1L, Platelet Count 301, Mean Platelet Volume 6.4L, Neutrophils (%) (Auto) 56.5, Lymphocytes (%) (Auto) 27.2, Monocytes (%) (Auto) 12.8H, Eosinophils (%) (Auto) 2.1, Basophils (%) (Auto) 1.4, Sodium Level 138, Potassium Level 3.5, Chloride Level 101, Carbon Dioxide Level 31, Anion Gap 6, Blood Urea Nitrogen 7, Creatinine 0.8, Estimat Glomerular Filtration Rate > 60, Glucose Level 111#H, Calcium Level 8.3L, Phosphorus Level 3.5, Magnesium Level 1.9, Total Bilirubin 0.5, Aspartate Amino Transf (AST/SGOT) 23, Alanine Aminotransferase (ALT/SGPT) 40, Alkaline Phosphatase 81, Pro-B-Type Natriuretic Peptide 1009H, Total Protein 6.1L, Albumin 2.4L, Globulin 3.7, Albumin/Globulin Ratio 0.6L Height (Feet): 5 Height (Inches): 5.00 Weight (Pounds): 150 General Appearance: no apparent distress EENT: PERRL/EOMI Neck: supple Cardiovascular: normal rate Respiratory/Chest: decreased breath sounds Abdomen: normal bowel sounds, non tender, soft Extremities: non-tender Clarke Liu MD March 04, 2020 10:06
--- NOTE | 2020-03-04 10:55 | Pulmonology Progress Note ---
Subjective ROS Limited/Unobtainable: No Constitutional: Reports: no symptoms HEENT: Repors: no symptoms Allergies: Coded Allergies: DIPHENHYDRAMINE (Verified Allergy, Unknown, 02/27/20) Objective Last 24 Hour Vital Signs Date Time Temp Pulse Resp B/P (MAP) Pulse Ox O2 Delivery O2 Flow Rate FiO2 03/04/20 08:00 97.9 107 19 142/90 (107) 100 03/04/20 08:00 Room Air 03/04/20 07:30 114 03/04/20 04:00 98.4 110 19 117/85 (96) 97 03/04/20 04:00 Room Air 03/04/20 03:24 102 03/04/20 00:00 90 03/04/20 00:00 Room Air 03/04/20 00:00 98.6 98 16 121/80 (94) 100 03/03/20 20:01 90 03/03/20 20:00 99.2 90 22 144/98 (113) 99 03/03/20 20:00 97 Room Air 21 03/03/20 20:00 Room Air 03/03/20 18:26 99.0 03/03/20 16:00 98 03/03/20 16:00 Room Air 03/03/20 16:00 99.2 94 20 143/95 (111) 100 03/03/20 12:00 Room Air 03/03/20 12:00 125 03/03/20 11:20 99.5 105 20 132/92 (105) 95 Intake and Output 03/03/20 03/04/20 19:00 07:00 Intake Total 1486.664 ml 922.5 ml Output Total 1400 ml 925 ml Balance 86.664 ml -2.5 ml Free Water 150 ml 300 ml IV Total 1236.664 ml 542.5 ml Tube Feeding 100 ml 80 ml Output Urine Total 1300 ml 925 ml Stool Total 100 ml 0 ml # Voids 2 # Bowel Movements 2 General Appearance: no acute distress HEENT: normocephalic, atraumatic, anicteric Respiratory: rhonchi - bilaterally Cardiovascular: normal peripheral pulses, normal rate Abdomen: normal bowel sounds, soft, non tender Genitourinary: normal external genitalia Extremities: no edema, pedal pulses normal Skin: no rash 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, aphasia, depressed affect Musculoskeletal: atrophy - BLE Microbiology Date/Time Source Procedure Growth Status 03/01/20 12:25 Blood Blood Culture - Preliminary NO GROWTH AFTER 48 HOURS Resulted 03/01/20 12:15 Blood Blood Culture - Preliminary NO GROWTH AFTER 48 HOURS Resulted Laboratory Tests 03/04/20 03:30: White Blood Count 9.4, Red Blood Count 3.54L, Hemoglobin 11.4L, Hematocrit 31.7L , Mean Corpuscular Volume 89, Mean Corpuscular Hemoglobin 32.1H, Mean Corpuscular Hemoglobin Concent 35.9, Red Cell Distribution Width 11.1L, Platelet Count 301, Mean Platelet Volume 6.4L, Neutrophils (%) (Auto) 56.5, Lymphocytes (%) (Auto) 27.2, Monocytes (%) (Auto) 12.8H, Eosinophils (%) (Auto) 2.1, Basophils (%) (Auto) 1.4, Sodium Level 138, Potassium Level 3.5, Chloride Level 101, Carbon Dioxide Level 31, Anion Gap 6, Blood Urea Nitrogen 7, Creatinine 0.8, Estimat Glomerular Filtration Rate > 60, Glucose Level 111#H, Calcium Level 8.3L, Phosphorus Level 3.5, Magnesium Level 1.9, Total Bilirubin 0.5, Aspartate Amino Transf (AST/SGOT) 23, Alanine Aminotransferase (ALT/SGPT) 40, Alkaline Phosphatase 81, Pro-B-Type Natriuretic Peptide 1009H, Total Protein 6.1L, Albumin 2.4L, Globulin 3.7, Albumin/Globulin Ratio 0.6L Current Medications Medications (Trade) Dose Ordered Sig/Damion Route PRN Reason Start Time Stop Time Status Last Admin Dose Admin Acetaminophen (Tylenol) 650 mg Q4H PRN NG Temp >100.5 02/29/20 02:30 03/28/20 06:29 03/03/20 17:56 Acetaminophen (Tylenol) 650 mg Q4H PRN ORAL fever 02/29/20 02:28 03/28/20 02:27 Albuterol Sulfate (Proventil) 2.5 mg Q4H PRN HHN Shortness of Breath 02/29/20 11:26 03/05/20 11:25 Chlorhexidine Gluconate (Marci-Hex 2%) 1 applic DAILY@1999 TOPIC 03/03/20 20:00 06/01/20 19:59 03/03/20 21:15 Dextrose/Sodium Chloride 1,000 ml @ 50 mls/hr Q20H IV 02/29/20 03:00 03/28/20 02:59 03/04/20 06:09 Enoxaparin Sodium (Lovenox) 40 mg DAILY SUBQ 02/29/20 09:00 05/27/20 08:59 03/03/20 08:54 Ertapenem 1 gm/ Sodium Chloride 55 ml @ 110 mls/hr Q24H IVPB 03/02/20 18:00 03/07/20 17:59 03/03/20 17:55 Erythromycin (Herb-Ped) 100 mg Q6HR ORAL 03/02/20 13:00 03/09/20 12:59 03/04/20 06:09 Lactobacillus Acidophilus (Culturelle) 1 tab TWICE A DAY ORAL 02/29/20 13:00 05/29/20 12:59 03/04/20 08:13 Levetiracetam (Keppra) 700 mg Q12HR NG 02/29/20 09:00 03/28/20 08:59 03/04/20 08:13 Loperamide HCl (Imodium) 2 mg Q6H PRN GT Diarrhea 02/29/20 12:45 03/30/20 12:44 03/03/20 17:56 Metoclopramide HCl (Reglan) 10 mg Q6H PRN IVP Nausea & Vomiting 03/01/20 07:45 03/31/20 07:44 03/01/20 08:48 Midodrine (Pro-Amatine) 10 mg Q8H PRN ORAL SBP <95 02/29/20 02:34 05/27/20 02:33 Nitroglycerin (Ntg) 0.4 mg Q5M PRN SL Prn Chest Pain 02/29/20 02:20 03/28/20 07:59 Nystatin (Nystop Powder) 1 applic THREE TIMES A DAY TOPIC 02/29/20 09:00 05/27/20 12:59 03/04/20 08:19 Ondansetron HCl (Zofran) 4 mg Q6H PRN IVP Nausea & Vomiting 02/29/20 02:36 03/28/20 02:35 Polyethylene Glycol (Miralax) 17 gm DAILYPRN PRN ORAL Constipation 02/29/20 02:36 03/28/20 02:35 Potassium Chloride 100 ml @ 50 mls/hr ONCE ONCE IVPB 03/04/20 09:15 03/04/20 11:14 03/04/20 09:33 Promethazine HCl/ Codeine (Phenergan with Codeine) 5 ml Q4H PRN ORAL For Cough 02/29/20 02:36 03/28/20 02:35 03/03/20 17:56 Risperidone (RisperDAL) 0.5 mg BIDPRN PRN ORAL mood/psychosis 02/29/20 02:37 04/12/20 02:36 Valproic Acid (Depakene) 250 mg BID@0900,2100 NG 02/29/20 09:00 03/30/20 08:59 03/04/20 08:13 Vitamin D (Vitamin D) 5,000 intlu QWEEK ORAL 03/05/20 09:00 03/28/20 08:59 Assessment/Plan Problems: (1) Acute respiratory failure (2) Nosocomial pneumonia (3) Severe sepsis (4) Attention to G-tube (5) Suspected 2019 novel coronavirus infection (6) Muscle wasting and atrophy, not elsewhere classified, multiple sites Assessment/Plan afebrile looks better covid - negative X 1 wbc decreasing, normal now continue abx check blood cultures aspiration precaution cxr reviewed Ana Maria Hansen MD March 04, 2020 10:55
--- NOTE | 2020-03-04 11:00 | Nephrology Progress Note ---
Assessment/Plan Problem List: (1) Dehydration (2) Severe sepsis (3) Acute respiratory failure Assessment Hypokalemia most likely secondary to liquid-milton diarrhea Patient currently have a rectal tube and a bag full of liquid stool Current conditions patient is being treated for: (1) Acute respiratory failure (2) Nosocomial pneumonia (3) Severe sepsis (4) Attention to G-tube (5) Suspected 2019 novel coronavirus infection (6) Muscle wasting and atrophy, not elsewhere classified, multiple sites Plan Suggestion: Will give IV potassium Phosphorus and magnesium supplement as needed Continue per consultants Per orders Subjective ROS Limited/Unobtainable: No Constitutional: Reports: malaise Objective Objective Last 24 Hour Vital Signs Date Time Temp Pulse Resp B/P (MAP) Pulse Ox O2 Delivery O2 Flow Rate FiO2 03/04/20 08:00 97.9 107 19 142/90 (107) 100 03/04/20 08:00 Room Air 03/04/20 07:30 114 03/04/20 04:00 98.4 110 19 117/85 (96) 97 03/04/20 04:00 Room Air 03/04/20 03:24 102 03/04/20 00:00 90 03/04/20 00:00 Room Air 03/04/20 00:00 98.6 98 16 121/80 (94) 100 03/03/20 20:01 90 03/03/20 20:00 99.2 90 22 144/98 (113) 99 03/03/20 20:00 97 Room Air 21 03/03/20 20:00 Room Air 03/03/20 18:26 99.0 03/03/20 16:00 98 03/03/20 16:00 Room Air 03/03/20 16:00 99.2 94 20 143/95 (111) 100 03/03/20 12:00 Room Air 03/03/20 12:00 125 03/03/20 11:20 99.5 105 20 132/92 (105) 95 Intake and Output 03/03/20 03/04/20 19:00 07:00 Intake Total 1486.664 ml 922.5 ml Output Total 1400 ml 925 ml Balance 86.664 ml -2.5 ml Free Water 150 ml 300 ml IV Total 1236.664 ml 542.5 ml Tube Feeding 100 ml 80 ml Output Urine Total 1300 ml 925 ml Stool Total 100 ml 0 ml # Voids 2 # Bowel Movements 2 Laboratory Tests 03/04/20 03:30: White Blood Count 9.4, Red Blood Count 3.54L, Hemoglobin 11.4L, Hematocrit 31.7L , Mean Corpuscular Volume 89, Mean Corpuscular Hemoglobin 32.1H, Mean Corpuscular Hemoglobin Concent 35.9, Red Cell Distribution Width 11.1L, Platelet Count 301, Mean Platelet Volume 6.4L, Neutrophils (%) (Auto) 56.5, Lymphocytes (%) (Auto) 27.2, Monocytes (%) (Auto) 12.8H, Eosinophils (%) (Auto) 2.1, Basophils (%) (Auto) 1.4, Sodium Level 138, Potassium Level 3.5, Chloride Level 101, Carbon Dioxide Level 31, Anion Gap 6, Blood Urea Nitrogen 7, Creatinine 0.8, Estimat Glomerular Filtration Rate > 60, Glucose Level 111#H, Calcium Level 8.3L, Phosphorus Level 3.5, Magnesium Level 1.9, Total Bilirubin 0.5, Aspartate Amino Transf (AST/SGOT) 23, Alanine Aminotransferase (ALT/SGPT) 40, Alkaline Phosphatase 81, Pro-B-Type Natriuretic Peptide 1009H, Total Protein 6.1L, Albumin 2.4L, Globulin 3.7, Albumin/Globulin Ratio 0.6L Height (Feet): 5 Height (Inches): 5.00 Weight (Pounds): 150 General Appearance: no apparent distress Cardiovascular: tachycardia Respiratory/Chest: decreased breath sounds Abdomen: other - Diarrhea persists Objective No change Kin Bustillo MD March 04, 2020 11:00
--- NOTE | 2020-03-04 11:23 | NUR ---
NURSE NOTES: Dr. Liu in the unit. Informed Doctor that patient has still active droplet/contact isolation due to fever and cough. Patient is negative Covid-19 x 2 this admission. Doctor Noe ordered to change Reglan IV 10mg scheduled every 6 hrs from PRN.
[2020-03-04 12:00] VITALS: BP 128/90
[2020-03-04] MEDS: Metoclopramide 10mg/2ml Inj IVP SCH ×3 (12:19→23:03)
--- NOTE | 2020-03-04 13:11 | Infectious Diseases Prog Note ---
Assessment/Plan Assessment/Plan Assessment: Severe Sepsis Acute hypoxic respiratory failure sp NRB- now at RA PNA - CoVID neg x2 ESBL K.pna bacteremia and pneumonia -03/04 CXR: Slightly improved bibasilar infiltrates. -03/01 CXR: Slight worsening of bibasilar infiltrates. -CXR: Basilar infiltrates. -Bcx 3/ ESBL K.pna (S Levo, Meropenem, ZOsyn); 03/01 Bcx NTD -sp cx ESBL K.pna -02/27 sp removal PICC Line; cath tip cx NTD -02/26 SARS-COV2 pCR neg; 02/28 SARS-COV 2 pcr neg -legionella ag urine neg Fever; improving Leukocytosis; resolved -u/a no pyuria -Cdiff neg Lactic acidosis, SP Princess intertrigo muscle weakness and atrophy (not characterized) psychiatric disorder dysphagia s/p [facility] resident (recently transferred from [place] to [facility]) Plan: -Continue Ertapenem #3 (abx d #7/-) 03/01 SP IV Vancomycin, and azithromycin #4 02/27/20 SP Zosyn #1, CEfepime x1, FLagyl x1 -f/u cx -Monitor CBC/CMP, temperatures -COVID19 neg x2; continue enhanced respiratory isolation for now until afebrile >72hrs -aspiration precautions -f/u repeat Bcx x2 Thank you for consulting [facility]. Will continue to follow along wiht you. Subjective Allergies: Coded Allergies: DIPHENHYDRAMINE (Verified Allergy, Unknown, 02/27/20) Subjective afebrile >36hrs at RA Bcx NTD Objective Vital Signs Last 24 Hour Vital Signs Date Time Temp Pulse Resp B/P (MAP) Pulse Ox O2 Delivery O2 Flow Rate FiO2 03/04/20 12:00 Room Air 03/04/20 12:00 99.1 115 19 128/90 (103) 95 03/04/20 08:00 97.9 107 19 142/90 (107) 100 03/04/20 08:00 Room Air 03/04/20 07:30 114 03/04/20 04:00 98.4 110 19 117/85 (96) 97 03/04/20 04:00 Room Air 03/04/20 03:24 102 03/04/20 00:00 90 03/04/20 00:00 Room Air 03/04/20 00:00 98.6 98 16 121/80 (94) 100 03/03/20 20:01 90 03/03/20 20:00 99.2 90 22 144/98 (113) 99 03/03/20 20:00 97 Room Air 21 03/03/20 20:00 Room Air 03/03/20 18:26 99.0 03/03/20 16:00 98 03/03/20 16:00 Room Air 03/03/20 16:00 99.2 94 20 143/95 (111) 100 Height (Feet): 5 Height (Inches): 5.00 Weight (Pounds): 150 Objective Gen: no respiratory distress Head: normocephalic Lungs: no tachypnea or use of accessory resp muscles Abd: not distended Laboratory Tests Test 03/04/20 03:30 White Blood Count 9.4 K/UL (4.8-10.8) Red Blood Count 3.54 M/UL (4.70-6.10) L Hemoglobin 11.4 G/DL (14.2-18.0) L Hematocrit 31.7 % (42.0-52.0) L Mean Corpuscular Volume 89 FL (80-99) Mean Corpuscular Hemoglobin 32.1 PG (27.0-31.0) H Mean Corpuscular Hemoglobin Concent 35.9 G/DL (32.0-36.0) Red Cell Distribution Width 11.1 % (11.6-14.8) L Platelet Count 301 K/UL (150-450) Mean Platelet Volume 6.4 FL (6.5-10.1) L Neutrophils (%) (Auto) 56.5 % (45.0-75.0) Lymphocytes (%) (Auto) 27.2 % (20.0-45.0) Monocytes (%) (Auto) 12.8 % (1.0-10.0) H Eosinophils (%) (Auto) 2.1 % (0.0-3.0) Basophils (%) (Auto) 1.4 % (0.0-2.0) Sodium Level 138 MMOL/L (136-145) Potassium Level 3.5 MMOL/L (3.5-5.1) Chloride Level 101 MMOL/L (98-107) Carbon Dioxide Level 31 MMOL/L (21-32) Anion Gap 6 mmol/L (5-15) Blood Urea Nitrogen 7 mg/dL (7-18) Creatinine 0.8 MG/DL (0.55-1.30) Estimat Glomerular Filtration Rate > 60 mL/min (>60) Glucose Level 111 MG/DL (74-106) #H Calcium Level 8.3 MG/DL (8.5-10.1) L Phosphorus Level 3.5 MG/DL (2.5-4.9) Magnesium Level 1.9 MG/DL (1.8-2.4) Total Bilirubin 0.5 MG/DL (0.2-1.0) Aspartate Amino Transf (AST/SGOT) 23 U/L (15-37) Alanine Aminotransferase (ALT/SGPT) 40 U/L (12-78) Alkaline Phosphatase 81 U/L (46-116) Pro-B-Type Natriuretic Peptide 1009 pg/mL (0-125) H Total Protein 6.1 G/DL (6.4-8.2) L Albumin 2.4 G/DL (3.4-5.0) L Globulin 3.7 g/dL Albumin/Globulin Ratio 0.6 (1.0-2.7) L Current Medications Medications (Trade) Dose Ordered Sig/Damion Route PRN Reason Start Time Stop Time Status Last Admin Dose Admin Acetaminophen (Tylenol) 650 mg Q4H PRN NG Temp >100.5 02/29/20 02:30 03/28/20 06:29 03/03/20 17:56 Acetaminophen (Tylenol) 650 mg Q4H PRN ORAL fever 02/29/20 02:28 03/28/20 02:27 Albuterol Sulfate (Proventil) 2.5 mg Q4H PRN HHN Shortness of Breath 02/29/20 11:26 03/05/20 11:25 Chlorhexidine Gluconate (Marci-Hex 2%) 1 applic DAILY@2000 TOPIC 03/03/20 20:00 06/01/20 19:59 03/03/20 21:15 Dextrose/Sodium Chloride 1,000 ml @ 50 mls/hr Q20H IV 02/29/20 03:00 03/28/20 02:59 03/04/20 06:09 Enoxaparin Sodium (Lovenox) 40 mg DAILY SUBQ 02/29/20 09:00 05/27/20 08:59 03/03/20 08:54 Ertapenem 1 gm/ Sodium Chloride 55 ml @ 110 mls/hr Q24H IVPB 03/02/20 18:00 03/07/20 17:59 03/03/20 17:55 Erythromycin (Herb-Ped) 100 mg Q6HR ORAL 03/02/20 13:00 03/09/20 12:59 03/04/20 12:54 Lactobacillus Acidophilus (Culturelle) 1 tab EVERY 12 HOURS ORAL 03/04/20 21:00 05/29/20 12:59 Levetiracetam (Keppra) 700 mg Q12HR NG 02/29/20 09:00 03/28/20 08:59 03/04/20 08:13 Loperamide HCl (Imodium) 2 mg Q6H PRN GT Diarrhea 02/29/20 12:45 03/30/20 12:44 03/03/20 17:56 Metoclopramide HCl (Reglan) 10 mg EVERY 6 HOURS IVP 03/04/20 12:00 03/31/20 07:44 03/04/20 12:19 Midodrine (Pro-Amatine) 10 mg Q8H PRN ORAL SBP <95 02/29/20 02:34 05/27/20 02:33 Nitroglycerin (Ntg) 0.4 mg Q5M PRN SL Prn Chest Pain 02/29/20 02:20 03/28/20 07:59 Nystatin (Nystop Powder) 1 applic THREE TIMES A DAY TOPIC 02/29/20 09:00 05/27/20 12:59 03/04/20 12:22 Ondansetron HCl (Zofran) 4 mg Q6H PRN IVP Nausea & Vomiting 02/29/20 02:36 03/28/20 02:35 Polyethylene Glycol (Miralax) 17 gm DAILYPRN PRN ORAL Constipation 02/29/20 02:36 03/28/20 02:35 Promethazine HCl/ Codeine (Phenergan with Codeine) 5 ml Q4H PRN ORAL For Cough 02/29/20 02:36 03/28/20 02:35 03/03/20 17:56 Risperidone (RisperDAL) 0.5 mg BIDPRN PRN ORAL mood/psychosis 02/29/20 02:37 04/12/20 02:36 Valproic Acid (Depakene) 250 mg BID@0900,2100 NG 02/29/20 09:00 03/30/20 08:59 03/04/20 08:13 Vitamin D (Vitamin D) 5,000 intlu QWEEK ORAL 03/05/20 09:00 03/28/20 08:59 Charlene Stokes M.D. March 04, 2020 13:11
--- NOTE | 2020-03-04 14:20 | NUR ---
CASE MANAGEMENT: REVIEW 03/04/2020 SI:GRAM NEG SEPSIS. VS: T 99.1 HR 115 RR 19 B/P 128/90 SATS 95% ON RA LABS: GLU 111 CA 8.3 BNP 1009 IS:DEXTROSE IV @ 50 ML/HR DEPAKENE NG BID KEPPRA NG Q12H ERTAPENEM IV Q24H NARESH- PED PO Q6H CXR IMPRESSION: New right PICC line in place in good position. Slightly improved bibasilar infiltrates. SDU PLAN OF CARE: EGD 03/05 IF ISOLATION IS DC'D NPO COVID (-) 02/28
--- NOTE | 2020-03-04 14:28 | NUR ---
DISCHARGE PLANNING: NOTE F/U ON [facility] REFERRAL MADE. AWAITING CALL BACK Addendum: 03/04/20 at 1608 by Radha Huntley CM [facility] IS COVERING FOR [facility] THIS WEEK. CLINICALS FAXED TO HER FOR REVIEW T: [phone] F: [phone]
[2020-03-04 16:00] VITALS: BP 124/89
--- NOTE | 2020-03-04 16:21 | NUR ---
NURSE NOTES: Dr. Arzate at bedside.
--- NOTE | 2020-03-04 16:39 | Cardiology Progress Note ---
Assessment/Plan Assessment/Plan 1. Septic shock. 2. Respiratory insufficiency. 3. Lactic acidosis. 4. Abnormal cardiac enzymes, likely demand related. 5. kleb, bacteremia covid #1 and #2 neg but developed fever last nite low grade remain in isolation to have peg changed to pej as coughing wih feeding wbc ok repeat bc are neg tele noted sinus bp now on the higher side may be related to saline loading used ot be on midodrine now off not on any antihypertensive will observe Subjective Subjective Awake, non verbal at this time. On room air. Kept NPO. With mcgee cath and rectal tube draining by gravity. Contact and droplet isolation observed Objective Last 24 Hour Vital Signs Date Time Temp Pulse Resp B/P (MAP) Pulse Ox O2 Delivery O2 Flow Rate FiO2 03/04/20 16:00 Room Air 03/04/20 15:22 104 03/04/20 12:00 Room Air 03/04/20 12:00 99.1 115 19 128/90 (103) 95 03/04/20 11:30 128 03/04/20 08:00 97.9 107 19 142/90 (107) 100 03/04/20 08:00 Room Air 03/04/20 07:30 114 03/04/20 04:00 98.4 110 19 117/85 (96) 97 03/04/20 04:00 Room Air 03/04/20 03:24 102 03/04/20 00:00 90 03/04/20 00:00 Room Air 03/04/20 00:00 98.6 98 16 121/80 (94) 100 03/03/20 20:01 90 03/03/20 20:00 99.2 90 22 144/98 (113) 99 03/03/20 20:00 97 Room Air 21 03/03/20 20:00 Room Air 03/03/20 18:26 99.0 General Appearance: no apparent distress, patient on isolation, isolation precautions Intake and Output 03/03/20 03/04/20 19:00 07:00 Intake Total 1486.664 ml 922.5 ml Output Total 1400 ml 925 ml Balance 86.664 ml -2.5 ml Free Water 150 ml 300 ml IV Total 1236.664 ml 542.5 ml Tube Feeding 100 ml 80 ml Output Urine Total 1300 ml 925 ml Stool Total 100 ml 0 ml # Voids 2 # Bowel Movements 2 Laboratory Tests Test 03/04/20 03:30 White Blood Count 9.4 K/UL (4.8-10.8) Red Blood Count 3.54 M/UL (4.70-6.10) L Hemoglobin 11.4 G/DL (14.2-18.0) L Hematocrit 31.7 % (42.0-52.0) L Mean Corpuscular Volume 89 FL (80-99) Mean Corpuscular Hemoglobin 32.1 PG (27.0-31.0) H Mean Corpuscular Hemoglobin Concent 35.9 G/DL (32.0-36.0) Red Cell Distribution Width 11.1 % (11.6-14.8) L Platelet Count 301 K/UL (150-450) Mean Platelet Volume 6.4 FL (6.5-10.1) L Neutrophils (%) (Auto) 56.5 % (45.0-75.0) Lymphocytes (%) (Auto) 27.2 % (20.0-45.0) Monocytes (%) (Auto) 12.8 % (1.0-10.0) H Eosinophils (%) (Auto) 2.1 % (0.0-3.0) Basophils (%) (Auto) 1.4 % (0.0-2.0) Sodium Level 138 MMOL/L (136-145) Potassium Level 3.5 MMOL/L (3.5-5.1) Chloride Level 101 MMOL/L (98-107) Carbon Dioxide Level 31 MMOL/L (21-32) Anion Gap 6 mmol/L (5-15) Blood Urea Nitrogen 7 mg/dL (7-18) Creatinine 0.8 MG/DL (0.55-1.30) Estimat Glomerular Filtration Rate > 60 mL/min (>60) Glucose Level 111 MG/DL (74-106) #H Calcium Level 8.3 MG/DL (8.5-10.1) L Phosphorus Level 3.5 MG/DL (2.5-4.9) Magnesium Level 1.9 MG/DL (1.8-2.4) Total Bilirubin 0.5 MG/DL (0.2-1.0) Aspartate Amino Transf (AST/SGOT) 23 U/L (15-37) Alanine Aminotransferase (ALT/SGPT) 40 U/L (12-78) Alkaline Phosphatase 81 U/L (46-116) Pro-B-Type Natriuretic Peptide 1009 pg/mL (0-125) H Total Protein 6.1 G/DL (6.4-8.2) L Albumin 2.4 G/DL (3.4-5.0) L Globulin 3.7 g/dL Albumin/Globulin Ratio 0.6 (1.0-2.7) L Objective per dr morris LUNGS: Good air entry. No wheezing or rales. Decreased air in bases. HEART: S1, S2. Tachycardic. No murmur or gallop. ABDOMEN: Soft, nondistended, nontender. PEG site is clean. EXTREMITIES: No cyanosis or clubbing. Mildly edematous in the upper extremity. Right upper extremity has a PICC line Antwon Arzate MD March 04, 2020 16:39
--- NOTE | 2020-03-04 17:30 | NUR ---
NURSE NOTES: Bedbath provided by 2 staff. Rectal tube remains in place, with liquid stool output.
[2020-03-04] MEDS: Ertapenem 1 GM in NS 55 ML IVPB SCH (17:47)
--- NOTE | 2020-03-04 18:02 | Internal Med Progress Note ---
Subjective Date of Service: March 04, 2020 Physician Name Obey Cisneros Attending Physician Marky Go MD Current Medications Medications (Trade) Dose Ordered Sig/Damion Route PRN Reason Start Time Stop Time Status Last Admin Dose Admin Acetaminophen (Tylenol) 650 mg Q4H PRN NG Temp >100.5 02/29/20 02:30 03/28/20 06:29 03/03/20 17:56 Acetaminophen (Tylenol) 650 mg Q4H PRN ORAL fever 02/29/20 02:28 03/28/20 02:27 Albuterol Sulfate (Proventil) 2.5 mg Q4H PRN HHN Shortness of Breath 02/29/20 11:26 03/05/20 11:25 Chlorhexidine Gluconate (Marci-Hex 2%) 1 applic DAILY@2000 TOPIC 03/03/20 20:00 06/01/20 19:59 03/03/20 21:15 Dextrose/Sodium Chloride 1,000 ml @ 50 mls/hr Q20H IV 02/29/20 03:00 03/28/20 02:59 03/04/20 06:09 Enoxaparin Sodium (Lovenox) 40 mg DAILY SUBQ 02/29/20 09:00 05/27/20 08:59 03/03/20 08:54 Ertapenem 1 gm/ Sodium Chloride 55 ml @ 110 mls/hr Q24H IVPB 03/02/20 18:00 03/07/20 17:59 03/04/20 17:47 Erythromycin (Herb-Ped) 100 mg Q6HR ORAL 03/02/20 13:00 03/09/20 12:59 03/04/20 17:47 Lactobacillus Acidophilus (Culturelle) 1 tab EVERY 12 HOURS ORAL 03/04/20 21:00 05/29/20 12:59 Levetiracetam (Keppra) 700 mg Q12HR NG 02/29/20 09:00 03/28/20 08:59 03/04/20 08:13 Loperamide HCl (Imodium) 2 mg Q6H PRN GT Diarrhea 02/29/20 12:45 03/30/20 12:44 03/03/20 17:56 Metoclopramide HCl (Reglan) 10 mg EVERY 6 HOURS IVP 03/04/20 12:00 03/31/20 07:44 03/04/20 17:47 Midodrine (Pro-Amatine) 10 mg Q8H PRN ORAL SBP <95 02/29/20 02:34 05/27/20 02:33 Nitroglycerin (Ntg) 0.4 mg Q5M PRN SL Prn Chest Pain 02/29/20 02:20 03/28/20 07:59 Nystatin (Nystop Powder) 1 applic THREE TIMES A DAY TOPIC 02/29/20 09:00 05/27/20 12:59 03/04/20 17:56 Ondansetron HCl (Zofran) 4 mg Q6H PRN IVP Nausea & Vomiting 02/29/20 02:36 03/28/20 02:35 Polyethylene Glycol (Miralax) 17 gm DAILYPRN PRN ORAL Constipation 02/29/20 02:36 03/28/20 02:35 Promethazine HCl/ Codeine (Phenergan with Codeine) 5 ml Q4H PRN ORAL For Cough 02/29/20 02:36 03/28/20 02:35 03/03/20 17:56 Risperidone (RisperDAL) 0.5 mg BIDPRN PRN ORAL mood/psychosis 02/29/20 02:37 04/12/20 02:36 Valproic Acid (Depakene) 250 mg BID@0900,2100 NG 02/29/20 09:00 03/30/20 08:59 03/04/20 08:13 Vitamin D (Vitamin D) 5,000 intlu QWEEK ORAL 03/05/20 09:00 03/28/20 08:59 Allergies: Coded Allergies: DIPHENHYDRAMINE (Verified Allergy, Unknown, 02/27/20) ROS Limited/Unobtainable: Yes Subjective 59 YO M admitted with respiratory failure. Now Sepsis and pneumonia. Cover for Int Med-Dr Go. Step Down Unit Objective Last Vital Signs Date Time Temp Pulse Resp B/P (MAP) Pulse Ox O2 Delivery O2 Flow Rate FiO2 03/04/20 16:00 98.5 111 19 124/89 (101) 94 03/04/20 16:00 Room Air 03/03/20 20:00 21 02/29/20 08:09 3.0 Laboratory Tests Test 03/04/20 03:30 White Blood Count 9.4 K/UL (4.8-10.8) Red Blood Count 3.54 M/UL (4.70-6.10) L Hemoglobin 11.4 G/DL (14.2-18.0) L Hematocrit 31.7 % (42.0-52.0) L Mean Corpuscular Volume 89 FL (80-99) Mean Corpuscular Hemoglobin 32.1 PG (27.0-31.0) H Mean Corpuscular Hemoglobin Concent 35.9 G/DL (32.0-36.0) Red Cell Distribution Width 11.1 % (11.6-14.8) L Platelet Count 301 K/UL (150-450) Mean Platelet Volume 6.4 FL (6.5-10.1) L Neutrophils (%) (Auto) 56.5 % (45.0-75.0) Lymphocytes (%) (Auto) 27.2 % (20.0-45.0) Monocytes (%) (Auto) 12.8 % (1.0-10.0) H Eosinophils (%) (Auto) 2.1 % (0.0-3.0) Basophils (%) (Auto) 1.4 % (0.0-2.0) Sodium Level 138 MMOL/L (136-145) Potassium Level 3.5 MMOL/L (3.5-5.1) Chloride Level 101 MMOL/L (98-107) Carbon Dioxide Level 31 MMOL/L (21-32) Anion Gap 6 mmol/L (5-15) Blood Urea Nitrogen 7 mg/dL (7-18) Creatinine 0.8 MG/DL (0.55-1.30) Estimat Glomerular Filtration Rate > 60 mL/min (>60) Glucose Level 111 MG/DL (74-106) #H Calcium Level 8.3 MG/DL (8.5-10.1) L Phosphorus Level 3.5 MG/DL (2.5-4.9) Magnesium Level 1.9 MG/DL (1.8-2.4) Total Bilirubin 0.5 MG/DL (0.2-1.0) Aspartate Amino Transf (AST/SGOT) 23 U/L (15-37) Alanine Aminotransferase (ALT/SGPT) 40 U/L (12-78) Alkaline Phosphatase 81 U/L (46-116) Pro-B-Type Natriuretic Peptide 1009 pg/mL (0-125) H Total Protein 6.1 G/DL (6.4-8.2) L Albumin 2.4 G/DL (3.4-5.0) L Globulin 3.7 g/dL Albumin/Globulin Ratio 0.6 (1.0-2.7) L Intake and Output 03/03/20 03/04/20 19:00 07:00 Intake Total 1486.664 ml 922.5 ml Output Total 1400 ml 925 ml Balance 86.664 ml -2.5 ml Free Water 150 ml 300 ml IV Total 1236.664 ml 542.5 ml Tube Feeding 100 ml 80 ml Output Urine Total 1300 ml 925 ml Stool Total 100 ml 0 ml # Voids 2 # Bowel Movements 2 Objective Objective GENERAL: Patient chronically ill-looking, not distress, on Room air sat 98%. HEAD AND NECK: Pupils are equal and reactive to light. Anicteric. Neck was supple. No JVD. LUNGS: Good air entry. No wheezing or rales. Decreased air in bases. HEART: S1, S2. Tachycardic. No murmur or gallop. ABDOMEN: Soft, nondistended, nontender. PEG site is clean. EXTREMITIES: No cyanosis or clubbing. Mildly edematous in the upper extremity. Right upper extremity has a PICC line. NEUROLOGIC: Very limited secondary to patient's status. Patient is moving all extremities spontaneously slowly; cranial nerves II through XII is limited evaluation. RECTAL/GENITOURINARY: Refused and deferred. PSYCHIATRIC: Mood and affect unable to obtain. Assessment/Plan Assessment/Plan Assessment/Plan Assessment/Plan Assessment/Plan ASSESSMENT: 1. Acute hypoxemic respiratory failure, COVID-19 negative 2. Bilateral pneumonia=ESBL Klebsiella 3. Sepsis=ESBL Klebsiella 4. Severe dehydration. 5. Lactic acidosis. 6. Klebsiella ESBL bacteremia, possible line sepsis. 7. Dysphagia, status post PEG. 8. Psychiatric disorder. 9. penitentiary resident. 10. Elevated Troponin most likely due to Demand ischemia. 11. Hypokalemia PLAN: In [place], COVID-[address] Hansen=Pulmonary Critical Care, Dr. Stokes=Infectious Disease Dr. Barragan = Cardiology consultation. Abx: vancomycin and Meropenem IV Removed of the PICC line. Code status: Full Code. DVT prophylaxis: Lovenox Inj. Follow up with the laboratory as well as culture. Lomotil PRN 1st COVID-19 test negative Nephrology=Obey Rodgers MD March 04, 2020 18:02
--- NOTE | 2020-03-04 18:56 | NUR ---
HAND-OFF: Report given to Trace Rush RN.
--- NOTE | 2020-03-04 19:01 | NUR ---
NURSE NOTES: Received report from ASAD Feng, pt. in bed awake with eyes open- non-verbal, no signs or symptoms of acute cardiac or respiratory distress noted, bed alarm on, side rails up x's3 and safety brakes engaged, pt. appears to be sating well on room air-no distress noted, bed in lowest position, call light within easy reach, bed alarm on, side rails up x's3, and safety brakes engaged, HOB elevated, pt. has feeding via g tube for Jevity 60cc/hr- but is on hold due to high residuals-and NPO for procedure tomorrow., Patient has Vargas and rectal tube both intact and draining to gravity, pt. has FARIDEH PICC running D5 1/2 NS at 50cc/hr- IV intact and patent, no seizure activity noted- side rails padded for seizure precautions. Pt. appears to be resting comfortably, will continue to monitor pt. and with plan of care.
[2020-03-04 20:00] VITALS: BP 119/85
[2020-03-04] MEDS: Dyna-Hex 2% Top Sol 2oz TOPIC SCH (20:20)
[2020-03-05] VITALS: BP 115/83
[2020-03-05 04:00] VITALS: BP 113/82
[2020-03-05] MEDS: Metoclopramide 10mg/2ml Inj IVP SCH ×3 (05:05→18:01)
[2020-03-05] MEDS: Erythromycin Ethylsuccinate 200mg/5ml Susp ORAL SCH ×3 (05:05→18:01)
[2020-03-05 05:35] LABS: BASOPHILS % (AUTO) 1.2 % (0.0-2.0); EOSINOPHILS % (AUTO) 4.6 % (0.0-3.0); HEMATOCRIT 29.5 % (42.0-52.0); HEMOGLOBIN 10.5 G/DL (14.2-18.0); LYMPHOCYTES % (AUTO) 25.6 % (20.0-45.0); MEAN CORPUSCULAR VOLUME 90 FL (80-99); MONOCYTES % (AUTO) 11.8 % (1.0-10.0); NEUTROPHILS % (AUTO) 56.9 % (45.0-75.0); PLATELET COUNT 314 K/UL (150-450); RED BLOOD COUNT 3.28 M/UL (4.70-6.10); RED CELL DISTRIBUTION WIDTH 11.4 % (11.6-14.8); WHITE BLOOD COUNT 9.3 K/UL (4.8-10.8)
[2020-03-05 06:03] LABS: ALANINE AMINOTRANSFERASE 28 U/L (12-78); ALBUMIN 2.3 G/DL (3.4-5.0); ALBUMIN/GLOBULIN RATIO 0.7 (1.0-2.7); ALKALINE PHOSPHATASE 68 U/L (46-116); ANION GAP 5 mmol/L (5-15); ASPARTATE AMINO TRANSFERASE 19 U/L (15-37); BILIRUBIN,TOTAL 0.4 MG/DL (0.2-1.0); BLOOD UREA NITROGEN 9 mg/dL (7-18); CALCIUM 8.7 MG/DL (8.5-10.1); CARBON DIOXIDE 31 MMOL/L (21-32); CHLORIDE 103 MMOL/L (98-107); CREATININE 0.9 MG/DL (0.55-1.30); PHOSPHORUS 3.3 MG/DL (2.5-4.9); POTASSIUM 3.6 MMOL/L (3.5-5.1); SODIUM 139 MMOL/L (136-145)
--- NOTE | 2020-03-05 07:06 | NUR ---
HAND-OFF: Report given to Ping RN, pt. remains stable and no signs of distress noted.
[2020-03-05 08:00] VITALS: BP 104/69
[2020-03-05] MEDS: Lactobacillus-GG tablet ORAL SCH ×2 (08:24→20:21)
[2020-03-05] MEDS: levETIRAcetam 500mg/5ml Liquid NG SCH ×2 (08:24→20:21)
[2020-03-05] MEDS: Valproic Acid 250mg/5ml Liquid NG SCH ×2 (08:24→20:21)
[2020-03-05] MEDS: Nystatin Powder 100,000 units/gm 15gm TOPIC SCH ×3 (08:34→18:18)
--- NOTE | 2020-03-05 08:54 | NUR ---
NURSE NOTES: Dr. Delarosa called,up dated about patient,notified labs today,notified me to have call him,ordered CT chest and head without contrast and labs in am,ASAD Feng notified Addendum: 03/05/20 at 0916 by Crystal Landa RN above notes , discard ,error not for this patient
--- NOTE | 2020-03-05 08:55 | NUR ---
CASE MANAGEMENT: REVIEW 03/05/2020 SI:GRAM NEG SEPSIS. VS: T 98 HR 93 RR 18 B/P 113/82 SATS 99% ON RA LABS: CRP 5.2 IS:DEXTROSE IV @ 50 ML/HR DEPAKENE NG BID KEPPRA NG Q12H ERTAPENEM IV Q24H NARESH- PED PO Q6H SDU PLAN OF CARE: EGD 03/05 IF ISOLATION IS DC'D NPO
[2020-03-05] MEDS: Enoxaparin 40mg Inj SUBQ SCH (09:00)
[2020-03-05] MEDS ORDERED: Vitamin D 1000 IU Tab ORAL SCH (09:00)
--- NOTE | 2020-03-05 09:22 | Pre-Procedure Note/Attestation ---
Pre-Procedure Note/Attestation Complete Prior to Procedure Planned Procedure: not applicable Procedure Narrative: esophagogastroduodenoscopy and GJT placement Indications for Procedure Pre-Operative Diagnosis: dysphagia Attestation I attest that I discussed the nature of the procedure; its benefits; risks and complications; and alternatives (and the risks and benefits of such alternatives ), prior to the procedure, with the patient (or the patient's legal promotions representative). I attest that, if there was a reasonable possibility of needing a blood transfusion, the patient (or the patient's legal promotions representative) was given the [facility] standardized written summary, pursuant to the [place] Blood Safety Act ([place] Health and Safety Code # 1645, as amended). I attest that I re-evaluated the patient just prior to the surgery and that there has been no change in the patient's H&P, except as documented below: Clarke Liu MD March 05, 2020 09:22
--- NOTE | 2020-03-05 10:09 | NUR ---
RD ASSESSMENT & RECOMMENDATIONS SEE CARE ACTIVITY FOR COMPLETE ASSESSMENT DAILY ESTIMATED NEEDS: Needs based on Pulmonary, wound/ 59kg 25-30 kcals/kg 9839-4990 total kcals 1.25-1.5 g protein/kg 73-88 g total protein 25-30 mL/kg 6879-8397 total fluid mLs NUTRITION DIAGNOSIS: Swallowing difficulty R/T dysphagia as evidenced by pt is PEG dependent. CURRENT TF:Jevity 1.2 @ 60ml/hr x 24 hrs ENTERAL NUTRITION RECOMMENDATIONS: Jevity 1.2 @ 60ml/hr x 24 hrs to provide 1440ml, 1728kcal, 80g prot, 1160ml free water * Initiate Jevity 1.2 @ 10ml/hr 6hrs * Advance 10ml q 4-6 hrs as tolerated to goal rate * HOB over 30 degrees * Without IVF, water flush of 150ml q 8 hrs ADDITIONAL RECOMMENDATIONS: * Per SN[facility]: HT=60" HC=337jkt (02/23/20) * Wound Care: Vit C 250mg QD + Marcelino BID w/ TF order * Monitor lytes, replete as needed * Monitor TF tolerance w/ GJT feeding, pending placement at this time
--- NOTE | 2020-03-05 10:10 | NUR ---
NURSE NOTES: GI Lab team at bedside. Patient is for EGD.
--- NOTE | 2020-03-05 10:50 | NUR ---
NURSE NOTES: EGD at bedside done by Dr. Liu. Gastrostomy tube was replaced.
--- NOTE | 2020-03-05 10:53 | Endoscopy Procedure Note ---
Endoscopy Procedure Note General Indication for Procedure: dysphagia Procedures Performed: EGD Operative Findings/Diagnosis: same Specimen: none Pt Tolerated Procedure Well: Yes Estimated Blood Loss: none Anesthesia Anesthesiologist: norbert Anesthesia: MAC Inserted Devices Implant(s) used?: No GI Core Measures 50 yrs or older w/o bx or poly: Not Applicable 10yrs. F/U recommended: Not Applicable Clarke Liu MD March 05, 2020 10:53
--- NOTE | 2020-03-05 11:28 | Pulmonology Progress Note ---
Subjective ROS Limited/Unobtainable: No Constitutional: Reports: no symptoms HEENT: Repors: no symptoms Allergies: Coded Allergies: DIPHENHYDRAMINE (Verified Allergy, Unknown, 02/27/20) Objective Last 24 Hour Vital Signs Date Time Temp Pulse Resp B/P (MAP) Pulse Ox O2 Delivery O2 Flow Rate FiO2 03/05/20 09:15 99 Room Air 21 03/05/20 08:00 98.0 92 21 104/69 (81) 99 03/05/20 08:00 Room Air 03/05/20 07:54 91 03/05/20 04:00 Room Air 03/05/20 04:00 98.0 93 18 113/82 (92) 99 03/05/20 03:49 96 03/05/20 00:00 98.3 95 18 115/83 (94) 100 03/05/20 00:00 Room Air 03/04/20 23:45 95 03/04/20 20:00 98.8 101 18 119/85 (96) 99 03/04/20 20:00 Room Air 03/04/20 19:29 115 03/04/20 19:07 97 Room Air 21 03/04/20 16:00 98.5 111 19 124/89 (101) 94 03/04/20 16:00 Room Air 03/04/20 15:22 104 03/04/20 12:00 Room Air 03/04/20 12:00 99.1 115 19 128/90 (103) 95 03/04/20 11:30 128 Intake and Output 03/04/20 03/05/20 19:00 07:00 Intake Total 755 ml 497 ml Output Total 1410 ml 875 ml Balance -655 ml -378 ml IV Total 755 ml 497 ml Output Urine Total 1300 ml 800 ml Stool Total 110 ml 75 ml General Appearance: no acute distress HEENT: normocephalic, atraumatic, anicteric Respiratory: rhonchi - bilaterally Cardiovascular: normal peripheral pulses, normal rate Abdomen: normal bowel sounds, soft, non tender Genitourinary: normal external genitalia Extremities: no edema, pedal pulses normal Skin: no rash Neurologic: chef head II-XII grossly normal, aphasia, depressed affect Lymphatic: no neck adenopathy Musculoskeletal: normal muscle bulk, atrophy - BLE Laboratory Tests 03/05/20 04:00: White Blood Count 9.3, Red Blood Count 3.28L, Hemoglobin 10.5L, Hematocrit 29.5L , Mean Corpuscular Volume 90, Mean Corpuscular Hemoglobin 31.9H, Mean Corpuscular Hemoglobin Concent 35.5, Red Cell Distribution Width 11.4L, Platelet Count 314, Mean Platelet Volume 6.1L, Neutrophils (%) (Auto) 56.9, Lymphocytes (%) (Auto) 25.6, Monocytes (%) (Auto) 11.8H, Eosinophils (%) (Auto) 4.6H, Basophils (%) (Auto) 1.2, Erythrocyte Sedimentation Rate 65H, Sodium Level 139, Potassium Level 3.6, Chloride Level 103, Carbon Dioxide Level 31, Anion Gap 5, Blood Urea Nitrogen 9, Creatinine 0.9, Estimat Glomerular Filtration Rate > 60, Glucose Level 90, Calcium Level 8.7, Phosphorus Level 3.3 , Magnesium Level 1.9, Total Bilirubin 0.4, Aspartate Amino Transf (AST/SGOT) 19 , Alanine Aminotransferase (ALT/SGPT) 28, Alkaline Phosphatase 68, C-Reactive Protein, Quantitative 5.2H, Total Protein 5.8L, Albumin 2.3L, Globulin 3.5, Albumin/Globulin Ratio 0.7L Current Medications Medications (Trade) Dose Ordered Sig/Damion Route PRN Reason Start Time Stop Time Status Last Admin Dose Admin Acetaminophen (Tylenol) 650 mg Q4H PRN NG Temp >100.5 02/29/20 02:30 03/28/20 06:29 03/03/20 17:56 Acetaminophen (Tylenol) 650 mg Q4H PRN ORAL fever 02/29/20 02:28 03/28/20 02:27 Albuterol Sulfate (Proventil) 2.5 mg Q4H PRN HHN Shortness of Breath 02/29/20 11:26 03/05/20 11:25 Chlorhexidine Gluconate (Marci-Hex 2%) 1 applic DAILY@2000 TOPIC 03/03/20 20:00 06/01/20 19:59 03/04/20 20:20 Dextrose/Sodium Chloride 1,000 ml @ 50 mls/hr Q20H IV 02/29/20 03:00 03/28/20 02:59 03/04/20 23:03 Enoxaparin Sodium (Lovenox) 40 mg DAILY SUBQ 02/29/20 09:00 05/27/20 08:59 03/03/20 08:54 Ertapenem 1 gm/ Sodium Chloride 55 ml @ 110 mls/hr Q24H IVPB 03/02/20 18:00 03/07/20 17:59 03/04/20 17:47 Erythromycin (Herb-Ped) 100 mg Q6HR ORAL 03/02/20 13:00 03/09/20 12:59 03/05/20 05:05 Lactobacillus Acidophilus (Culturelle) 1 tab EVERY 12 HOURS ORAL 03/04/20 21:00 05/29/20 12:59 03/05/20 08:24 Levetiracetam (Keppra) 700 mg Q12HR NG 02/29/20 09:00 03/28/20 08:59 03/05/20 08:24 Loperamide HCl (Imodium) 2 mg Q6H PRN GT Diarrhea 02/29/20 12:45 03/30/20 12:44 03/03/20 17:56 Metoclopramide HCl (Reglan) 10 mg EVERY 6 HOURS IVP 03/04/20 12:00 03/31/20 07:44 03/05/20 05:05 Midodrine (Pro-Amatine) 10 mg Q8H PRN ORAL SBP <95 02/29/20 02:34 05/27/20 02:33 Nitroglycerin (Ntg) 0.4 mg Q5M PRN SL Prn Chest Pain 02/29/20 02:20 03/28/20 07:59 Nystatin (Nystop Powder) 1 applic THREE TIMES A DAY TOPIC 02/29/20 09:00 05/27/20 12:59 03/05/20 08:34 Ondansetron HCl (Zofran) 4 mg Q6H PRN IVP Nausea & Vomiting 02/29/20 02:36 03/28/20 02:35 Polyethylene Glycol (Miralax) 17 gm DAILYPRN PRN ORAL Constipation 02/29/20 02:36 03/28/20 02:35 Promethazine HCl/ Codeine (Phenergan with Codeine) 5 ml Q4H PRN ORAL For Cough 02/29/20 02:36 03/28/20 02:35 03/03/20 17:56 Risperidone (RisperDAL) 0.5 mg BIDPRN PRN ORAL mood/psychosis 02/29/20 02:37 04/12/20 02:36 Valproic Acid (Depakene) 250 mg BID@0900,2100 NG 02/29/20 09:00 03/30/20 08:59 03/05/20 08:24 Vitamin D (Vitamin D) 5,000 intlu QWEEK ORAL 03/05/20 09:00 03/28/20 08:59 03/05/20 08:26 Assessment/Plan Problems: (1) Acute respiratory failure (2) Nosocomial pneumonia (3) Severe sepsis (4) Attention to G-tube (5) Suspected 2019 novel coronavirus infection (6) Muscle wasting and atrophy, not elsewhere classified, multiple sites Assessment/Plan doing better,afebrile looks better covid - negative X 1 wbc decreasing, normal now continue abx check blood cultures aspiration precaution cxr reviewed Ana Maria Hansen MD March 05, 2020 11:28
[2020-03-05 12:00] VITALS: BP 109/71
--- NOTE | 2020-03-05 12:29 | Infectious Diseases Prog Note ---
Assessment/Plan Assessment/Plan Assessment: Severe Sepsis Acute hypoxic respiratory failure sp NRB- now at PNA - CoVID neg x2 ESBL K.pna bacteremia and pneumonia -03/04 CXR: Slightly improved bibasilar infiltrates. -03/01 CXR: Slight worsening of bibasilar infiltrates. -CXR: Basilar infiltrates. -Bcx 3/ ESBL K.pna (S Levo, Meropenem, ZOsyn); 03/01 Bcx NTD -sp cx ESBL K.pna -02/27 sp removal PICC Line; cath tip cx NTD -02/26 SARS-COV2 pCR neg; 02/28 SARS-COV 2 pcr neg -legionella ag urine neg Fever; SP Leukocytosis; resolved -u/a no pyuria -Cdiff neg Lactic acidosis, SP Pirncess intertrigo muscle weakness and atrophy (not characterized) psychiatric disorder dysphagia s/p [facility] resident (recently transferred from [place] to [facility]) Plan: -Continue Ertapenem #4 (abx d #8/-) 03/01 SP IV Vancomycin, and azithromycin #4 02/27/20 SP Zosyn #1, CEfepime x1, FLagyl x1 -f/u cx -Monitor CBC/CMP, temperatures -COVID19 neg x2; continue enhanced respiratory isolation for now until afebrile >72hrs -aspiration precautions -f/u repeat Bcx x2 Thank you for consulting [facility]. Will continue to follow along wiht you. Subjective Allergies: Coded Allergies: DIPHENHYDRAMINE (Verified Allergy, Unknown, 02/27/20) Subjective afebrile >48hrs at RA Bcx NTD Objective Vital Signs Last 24 Hour Vital Signs Date Time Temp Pulse Resp B/P (MAP) Pulse Ox O2 Delivery O2 Flow Rate FiO2 03/05/20 09:15 99 Room Air 21 03/05/20 08:00 98.0 92 21 104/69 (81) 99 03/05/20 08:00 Room Air 03/05/20 07:54 91 03/05/20 04:00 Room Air 03/05/20 04:00 98.0 93 18 113/82 (92) 99 03/05/20 03:49 96 03/05/20 00:00 98.3 95 18 115/83 (94) 100 03/05/20 00:00 Room Air 03/04/20 23:45 95 03/04/20 20:00 98.8 101 18 119/85 (96) 99 03/04/20 20:00 Room Air 03/04/20 19:29 115 03/04/20 19:07 97 Room Air 21 03/04/20 16:00 98.5 111 19 124/89 (101) 94 03/04/20 16:00 Room Air 03/04/20 15:22 104 Height (Feet): 5 Height (Inches): 5.00 Weight (Pounds): 150 Objective Gen: no respiratory distress Head: normocephalic Lungs: no tachypnea or use of accessory resp muscles Abd: not distended Laboratory Tests Test 03/05/20 04:00 White Blood Count 9.3 K/UL (4.8-10.8) Red Blood Count 3.28 M/UL (4.70-6.10) L Hemoglobin 10.5 G/DL (14.2-18.0) L Hematocrit 29.5 % (42.0-52.0) L Mean Corpuscular Volume 90 FL (80-99) Mean Corpuscular Hemoglobin 31.9 PG (27.0-31.0) H Mean Corpuscular Hemoglobin Concent 35.5 G/DL (32.0-36.0) Red Cell Distribution Width 11.4 % (11.6-14.8) L Platelet Count 314 K/UL (150-450) Mean Platelet Volume 6.1 FL (6.5-10.1) L Neutrophils (%) (Auto) 56.9 % (45.0-75.0) Lymphocytes (%) (Auto) 25.6 % (20.0-45.0) Monocytes (%) (Auto) 11.8 % (1.0-10.0) H Eosinophils (%) (Auto) 4.6 % (0.0-3.0) H Basophils (%) (Auto) 1.2 % (0.0-2.0) Erythrocyte Sedimentation Rate 65 MM/HR (0-20) H Sodium Level 139 MMOL/L (136-145) Potassium Level 3.6 MMOL/L (3.5-5.1) Chloride Level 103 MMOL/L (98-107) Carbon Dioxide Level 31 MMOL/L (21-32) Anion Gap 5 mmol/L (5-15) Blood Urea Nitrogen 9 mg/dL (7-18) Creatinine 0.9 MG/DL (0.55-1.30) Estimat Glomerular Filtration Rate > 60 mL/min (>60) Glucose Level 90 MG/DL (74-106) Calcium Level 8.7 MG/DL (8.5-10.1) Phosphorus Level 3.3 MG/DL (2.5-4.9) Magnesium Level 1.9 MG/DL (1.8-2.4) Total Bilirubin 0.4 MG/DL (0.2-1.0) Aspartate Amino Transf (AST/SGOT) 19 U/L (15-37) Alanine Aminotransferase (ALT/SGPT) 28 U/L (12-78) Alkaline Phosphatase 68 U/L (46-116) C-Reactive Protein, Quantitative 5.2 mg/dL (0.00-0.90) H Total Protein 5.8 G/DL (6.4-8.2) L Albumin 2.3 G/DL (3.4-5.0) L Globulin 3.5 g/dL Albumin/Globulin Ratio 0.7 (1.0-2.7) L Current Medications Medications (Trade) Dose Ordered Sig/Damion Route PRN Reason Start Time Stop Time Status Last Admin Dose Admin Acetaminophen (Tylenol) 650 mg Q4H PRN NG Temp >100.5 02/29/20 02:30 03/28/20 06:29 03/03/20 17:56 Acetaminophen (Tylenol) 650 mg Q4H PRN ORAL fever 02/29/20 02:28 03/28/20 02:27 Chlorhexidine Gluconate (Marci-Hex 2%) 1 applic DAILY@2000 TOPIC 03/03/20 20:00 06/01/20 19:59 03/04/20 20:20 Dextrose/Sodium Chloride 1,000 ml @ 50 mls/hr Q20H IV 02/29/20 03:00 03/28/20 02:59 03/04/20 23:03 Enoxaparin Sodium (Lovenox) 40 mg DAILY SUBQ 02/29/20 09:00 05/27/20 08:59 03/03/20 08:54 Ertapenem 1 gm/ Sodium Chloride 55 ml @ 110 mls/hr Q24H IVPB 03/02/20 18:00 03/07/20 17:59 03/04/20 17:47 Erythromycin (Herb-Ped) 100 mg Q6HR ORAL 03/02/20 13:00 03/09/20 12:59 03/05/20 05:05 Lactobacillus Acidophilus (Culturelle) 1 tab EVERY 12 HOURS ORAL 03/04/20 21:00 05/29/20 12:59 03/05/20 08:24 Levetiracetam (Keppra) 700 mg Q12HR NG 02/29/20 09:00 03/28/20 08:59 03/05/20 08:24 Loperamide HCl (Imodium) 2 mg Q6H PRN GT Diarrhea 02/29/20 12:45 03/30/20 12:44 03/03/20 17:56 Metoclopramide HCl (Reglan) 10 mg EVERY 6 HOURS IVP 03/04/20 12:00 03/31/20 07:44 03/05/20 05:05 Midodrine (Pro-Amatine) 10 mg Q8H PRN ORAL SBP <95 02/29/20 02:34 05/27/20 02:33 Nitroglycerin (Ntg) 0.4 mg Q5M PRN SL Prn Chest Pain 02/29/20 02:20 03/28/20 07:59 Nystatin (Nystop Powder) 1 applic THREE TIMES A DAY TOPIC 02/29/20 09:00 05/27/20 12:59 03/05/20 08:34 Ondansetron HCl (Zofran) 4 mg Q6H PRN IVP Nausea & Vomiting 02/29/20 02:36 03/28/20 02:35 Polyethylene Glycol (Miralax) 17 gm DAILYPRN PRN ORAL Constipation 02/29/20 02:36 03/28/20 02:35 Promethazine HCl/ Codeine (Phenergan with Codeine) 5 ml Q4H PRN ORAL For Cough 02/29/20 02:36 03/28/20 02:35 03/03/20 17:56 Risperidone (RisperDAL) 0.5 mg BIDPRN PRN ORAL mood/psychosis 02/29/20 02:37 04/12/20 02:36 Valproic Acid (Depakene) 250 mg BID@0900,2100 NG 02/29/20 09:00 03/30/20 08:59 03/05/20 08:24 Vitamin D (Vitamin D) 5,000 intlu QWEEK ORAL 03/05/20 09:00 03/28/20 08:59 03/05/20 08:26 Charlene Stokes M.D. March 05, 2020 12:29
--- NOTE | 2020-03-05 13:11 | NUR ---
DISCHARGE PLANNING: NOTE 1035- Call placed to [facility]. Awaiting bed assignment 1308- pt has been clinically approved. Financial clearance pending acceptance back to SNF as pt is using lifetime reserve days Coni T: [phone]
--- NOTE | 2020-03-05 13:25 | Cardiology Progress Note ---
Assessment/Plan Assessment/Plan 1. Septic shock. 2. Respiratory insufficiency. 3. Lactic acidosis. 4. Abnormal cardiac enzymes, likely demand related. 5. kleb, bacteremia covid #1 and #2 neg but developed fever last nite low grade remain in isolation s/p egd no pej per staff due to coughing remain in isolation but no repeat covid testing ordered by ID [facility] ok repeat bc are neg tele noted sinus bp ok now used ot be on midodrine now off not on any antihypertensive will observe Subjective Subjective agitable , rectal tube for diarrha, coughing , bno vomiting good uo no fever per rn Objective Last 24 Hour Vital Signs Date Time Temp Pulse Resp B/P (MAP) Pulse Ox O2 Delivery O2 Flow Rate FiO2 03/05/20 09:15 99 Room Air 21 03/05/20 08:00 98.0 92 21 104/69 (81) 99 03/05/20 08:00 Room Air 03/05/20 07:54 91 03/05/20 04:00 Room Air 03/05/20 04:00 98.0 93 18 113/82 (92) 99 03/05/20 03:49 96 03/05/20 00:00 98.3 95 18 115/83 (94) 100 03/05/20 00:00 Room Air 03/04/20 23:45 95 03/04/20 20:00 98.8 101 18 119/85 (96) 99 03/04/20 20:00 Room Air 03/04/20 19:29 115 03/04/20 19:07 97 Room Air 21 03/04/20 16:00 98.5 111 19 124/89 (101) 94 03/04/20 16:00 Room Air 03/04/20 15:22 104 General Appearance: no apparent distress, patient on isolation, isolation precautions Intake and Output 03/04/20 03/05/20 19:00 07:00 Intake Total 755 ml 497 ml Output Total 1410 ml 875 ml Balance -655 ml -378 ml IV Total 755 ml 497 ml Output Urine Total 1300 ml 800 ml Stool Total 110 ml 75 ml Laboratory Tests Test 03/05/20 04:00 White Blood Count 9.3 K/UL (4.8-10.8) Red Blood Count 3.28 M/UL (4.70-6.10) L Hemoglobin 10.5 G/DL (14.2-18.0) L Hematocrit 29.5 % (42.0-52.0) L Mean Corpuscular Volume 90 FL (80-99) Mean Corpuscular Hemoglobin 31.9 PG (27.0-31.0) H Mean Corpuscular Hemoglobin Concent 35.5 G/DL (32.0-36.0) Red Cell Distribution Width 11.4 % (11.6-14.8) L Platelet Count 314 K/UL (150-450) Mean Platelet Volume 6.1 FL (6.5-10.1) L Neutrophils (%) (Auto) 56.9 % (45.0-75.0) Lymphocytes (%) (Auto) 25.6 % (20.0-45.0) Monocytes (%) (Auto) 11.8 % (1.0-10.0) H Eosinophils (%) (Auto) 4.6 % (0.0-3.0) H Basophils (%) (Auto) 1.2 % (0.0-2.0) Erythrocyte Sedimentation Rate 65 MM/HR (0-20) H Sodium Level 139 MMOL/L (136-145) Potassium Level 3.6 MMOL/L (3.5-5.1) Chloride Level 103 MMOL/L (98-107) Carbon Dioxide Level 31 MMOL/L (21-32) Anion Gap 5 mmol/L (5-15) Blood Urea Nitrogen 9 mg/dL (7-18) Creatinine 0.9 MG/DL (0.55-1.30) Estimat Glomerular Filtration Rate > 60 mL/min (>60) Glucose Level 90 MG/DL (74-106) Calcium Level 8.7 MG/DL (8.5-10.1) Phosphorus Level 3.3 MG/DL (2.5-4.9) Magnesium Level 1.9 MG/DL (1.8-2.4) Total Bilirubin 0.4 MG/DL (0.2-1.0) Aspartate Amino Transf (AST/SGOT) 19 U/L (15-37) Alanine Aminotransferase (ALT/SGPT) 28 U/L (12-78) Alkaline Phosphatase 68 U/L (46-116) C-Reactive Protein, Quantitative 5.2 mg/dL (0.00-0.90) H Total Protein 5.8 G/DL (6.4-8.2) L Albumin 2.3 G/DL (3.4-5.0) L Globulin 3.5 g/dL Albumin/Globulin Ratio 0.7 (1.0-2.7) L Objective per dr morris LUNGS: Good air entry. No wheezing or rales. Decreased air in bases. HEART: S1, S2. Tachycardic. No murmur or gallop. ABDOMEN: Soft, nondistended, nontender. PEG site is clean. EXTREMITIES: No cyanosis or clubbing. Mildly edematous in the upper extremity. Right upper extremity has a PICC line Antwon Arzate MD March 05, 2020 13:25
--- NOTE | 2020-03-05 13:42 | Nephrology Progress Note ---
Assessment/Plan Problem List: (1) Dehydration (2) Severe sepsis (3) Acute respiratory failure Assessment Hypokalemia most likely secondary to liquid-milton diarrhea Patient currently have a rectal tube and a bag full of liquid stool Current conditions patient is being treated for: (1) Acute respiratory failure (2) Nosocomial pneumonia (3) Severe sepsis (4) Attention to G-tube (5) Suspected 2019 novel coronavirus infection (6) Muscle wasting and atrophy, not elsewhere classified, multiple sites Plan Suggestion: Will give IV potassium as needed Phosphorus and magnesium supplement as needed Monitor renal parameters Continue per consultants Per orders Subjective ROS Limited/Unobtainable: No Constitutional: Reports: malaise Objective Objective Last 24 Hour Vital Signs Date Time Temp Pulse Resp B/P (MAP) Pulse Ox O2 Delivery O2 Flow Rate FiO2 03/05/20 09:15 99 Room Air 21 03/05/20 08:00 98.0 92 21 104/69 (81) 99 03/05/20 08:00 Room Air 03/05/20 07:54 91 03/05/20 04:00 Room Air 03/05/20 04:00 98.0 93 18 113/82 (92) 99 03/05/20 03:49 96 03/05/20 00:00 98.3 95 18 115/83 (94) 100 03/05/20 00:00 Room Air 03/04/20 23:45 95 03/04/20 20:00 98.8 101 18 119/85 (96) 99 03/04/20 20:00 Room Air 03/04/20 19:29 115 03/04/20 19:07 97 Room Air 21 03/04/20 16:00 98.5 111 19 124/89 (101) 94 03/04/20 16:00 Room Air 03/04/20 15:22 104 Intake and Output 03/04/20 03/05/20 19:00 07:00 Intake Total 755 ml 497 ml Output Total 1410 ml 875 ml Balance -655 ml -378 ml IV Total 755 ml 497 ml Output Urine Total 1300 ml 800 ml Stool Total 110 ml 75 ml Laboratory Tests 03/05/20 04:00: White Blood Count 9.3, Red Blood Count 3.28L, Hemoglobin 10.5L, Hematocrit 29.5L , Mean Corpuscular Volume 90, Mean Corpuscular Hemoglobin 31.9H, Mean Corpuscular Hemoglobin Concent 35.5, Red Cell Distribution Width 11.4L, Platelet Count 314, Mean Platelet Volume 6.1L, Neutrophils (%) (Auto) 56.9, Lymphocytes (%) (Auto) 25.6, Monocytes (%) (Auto) 11.8H, Eosinophils (%) (Auto) 4.6H, Basophils (%) (Auto) 1.2, Erythrocyte Sedimentation Rate 65H, Sodium Level 139, Potassium Level 3.6, Chloride Level 103, Carbon Dioxide Level 31, Anion Gap 5, Blood Urea Nitrogen 9, Creatinine 0.9, Estimat Glomerular Filtration Rate > 60, Glucose Level 90, Calcium Level 8.7, Phosphorus Level 3.3 , Magnesium Level 1.9, Total Bilirubin 0.4, Aspartate Amino Transf (AST/SGOT) 19 , Alanine Aminotransferase (ALT/SGPT) 28, Alkaline Phosphatase 68, C-Reactive Protein, Quantitative 5.2H, Total Protein 5.8L, Albumin 2.3L, Globulin 3.5, Albumin/Globulin Ratio 0.7L Height (Feet): 5 Height (Inches): 5.00 Weight (Pounds): 150 General Appearance: no apparent distress Cardiovascular: tachycardia Respiratory/Chest: decreased breath sounds Abdomen: distended Objective No change Kin Bustillo MD March 05, 2020 13:42
--- NOTE | 2020-03-05 14:41 | NUR ---
DISCHARGE PLANNING: NOTE PATIENT HAS BEEN ACCEPTED TO [facility] ROOM NUMBER PENDING CALL PLACED TO SISTER ORVILLE CORTEZ [phone] SHE IS AGREEABLE TO [facility] PLACED ON WILL CALL TRANSFER FORM TO BE PROVIDED DC ORDER TO BE ENTERED Addendum: 03/05/20 at 1542 by RA LYONS RECEIVED A CALL FROM: GIBSON JACOBSON S/W VICENTE ANY QUESTIONS PLEASE CALL ROOM# [id number] T: [phone] FOR NURSE TO NURSE REPORT *-* GIBSON HAS REQUESTED THIS TRANSPORTATION BE SCHEDULED AFTER 7:00 P.M. *-*
[2020-03-05 16:00] VITALS: BP 147/79
--- NOTE | 2020-03-05 16:12 | Internal Med Progress Note ---
Subjective Physician Name Marky Go Attending Physician Marky Go MD Current Medications Medications (Trade) Dose Ordered Sig/Damion Route PRN Reason Start Time Stop Time Status Last Admin Dose Admin Acetaminophen (Tylenol) 650 mg Q4H PRN NG Temp >100.5 02/29/20 02:30 03/28/20 06:29 03/03/20 17:56 Acetaminophen (Tylenol) 650 mg Q4H PRN ORAL fever 02/29/20 02:28 03/28/20 02:27 Chlorhexidine Gluconate (Marci-Hex 2%) 1 applic DAILY@2000 TOPIC 03/03/20 20:00 06/01/20 19:59 03/04/20 20:20 Dextrose/Sodium Chloride 1,000 ml @ 50 mls/hr Q20H IV 02/29/20 03:00 03/28/20 02:59 03/04/20 23:03 Enoxaparin Sodium (Lovenox) 40 mg DAILY SUBQ 02/29/20 09:00 05/27/20 08:59 03/03/20 08:54 Ertapenem 1 gm/ Sodium Chloride 55 ml @ 110 mls/hr Q24H IVPB 03/02/20 18:00 03/07/20 17:59 03/04/20 17:47 Erythromycin (Herb-Ped) 100 mg Q6HR ORAL 03/02/20 13:00 03/09/20 12:59 03/05/20 05:05 Lactobacillus Acidophilus (Culturelle) 1 tab EVERY 12 HOURS ORAL 03/04/20 21:00 05/29/20 12:59 03/05/20 08:24 Levetiracetam (Keppra) 700 mg Q12HR NG 02/29/20 09:00 03/28/20 08:59 03/05/20 08:24 Loperamide HCl (Imodium) 2 mg Q6H PRN GT Diarrhea 02/29/20 12:45 03/30/20 12:44 03/03/20 17:56 Metoclopramide HCl (Reglan) 10 mg EVERY 6 HOURS IVP 03/04/20 12:00 03/31/20 07:44 03/05/20 05:05 Midodrine (Pro-Amatine) 10 mg Q8H PRN ORAL SBP <95 02/29/20 02:34 05/27/20 02:33 Nitroglycerin (Ntg) 0.4 mg Q5M PRN SL Prn Chest Pain 02/29/20 02:20 03/28/20 07:59 Nystatin (Nystop Powder) 1 applic THREE TIMES A DAY TOPIC 02/29/20 09:00 05/27/20 12:59 03/05/20 14:19 Ondansetron HCl (Zofran) 4 mg Q6H PRN IVP Nausea & Vomiting 02/29/20 02:36 03/28/20 02:35 Polyethylene Glycol (Miralax) 17 gm DAILYPRN PRN ORAL Constipation 02/29/20 02:36 03/28/20 02:35 Promethazine HCl/ Codeine (Phenergan with Codeine) 5 ml Q4H PRN ORAL For Cough 02/29/20 02:36 03/28/20 02:35 03/03/20 17:56 Risperidone (RisperDAL) 0.5 mg BIDPRN PRN ORAL mood/psychosis 02/29/20 02:37 04/12/20 02:36 Valproic Acid (Depakene) 250 mg BID@0900,2100 NG 02/29/20 09:00 03/30/20 08:59 03/05/20 08:24 Vitamin D (Vitamin D) 5,000 intlu QWEEK ORAL 03/05/20 09:00 03/28/20 08:59 03/05/20 08:26 Allergies: Coded Allergies: DIPHENHYDRAMINE (Verified Allergy, Unknown, 02/27/20) Subjective In PCU, awake, responsive open eye, WBC: 9.3. Objective Last Vital Signs Date Time Temp Pulse Resp B/P (MAP) Pulse Ox O2 Delivery O2 Flow Rate FiO2 03/05/20 12:00 98.5 95 24 109/71 (84) 98 03/05/20 12:00 Room Air 03/05/20 09:15 21 02/29/20 08:09 3.0 Laboratory Tests Test 03/05/20 04:00 White Blood Count 9.3 K/UL (4.8-10.8) Red Blood Count 3.28 M/UL (4.70-6.10) L Hemoglobin 10.5 G/DL (14.2-18.0) L Hematocrit 29.5 % (42.0-52.0) L Mean Corpuscular Volume 90 FL (80-99) Mean Corpuscular Hemoglobin 31.9 PG (27.0-31.0) H Mean Corpuscular Hemoglobin Concent 35.5 G/DL (32.0-36.0) Red Cell Distribution Width 11.4 % (11.6-14.8) L Platelet Count 314 K/UL (150-450) Mean Platelet Volume 6.1 FL (6.5-10.1) L Neutrophils (%) (Auto) 56.9 % (45.0-75.0) Lymphocytes (%) (Auto) 25.6 % (20.0-45.0) Monocytes (%) (Auto) 11.8 % (1.0-10.0) H Eosinophils (%) (Auto) 4.6 % (0.0-3.0) H Basophils (%) (Auto) 1.2 % (0.0-2.0) Erythrocyte Sedimentation Rate 65 MM/HR (0-20) H Sodium Level 139 MMOL/L (136-145) Potassium Level 3.6 MMOL/L (3.5-5.1) Chloride Level 103 MMOL/L (98-107) Carbon Dioxide Level 31 MMOL/L (21-32) Anion Gap 5 mmol/L (5-15) Blood Urea Nitrogen 9 mg/dL (7-18) Creatinine 0.9 MG/DL (0.55-1.30) Estimat Glomerular Filtration Rate > 60 mL/min (>60) Glucose Level 90 MG/DL (74-106) Calcium Level 8.7 MG/DL (8.5-10.1) Phosphorus Level 3.3 MG/DL (2.5-4.9) Magnesium Level 1.9 MG/DL (1.8-2.4) Total Bilirubin 0.4 MG/DL (0.2-1.0) Aspartate Amino Transf (AST/SGOT) 19 U/L (15-37) Alanine Aminotransferase (ALT/SGPT) 28 U/L (12-78) Alkaline Phosphatase 68 U/L (46-116) C-Reactive Protein, Quantitative 5.2 mg/dL (0.00-0.90) H Total Protein 5.8 G/DL (6.4-8.2) L Albumin 2.3 G/DL (3.4-5.0) L Globulin 3.5 g/dL Albumin/Globulin Ratio 0.7 (1.0-2.7) L Intake and Output 03/04/20 03/05/20 19:00 07:00 Intake Total 755 ml 497 ml Output Total 1410 ml 875 ml Balance -655 ml -378 ml IV Total 755 ml 497 ml Output Urine Total 1300 ml 800 ml Stool Total 110 ml 75 ml Objective GENERAL: Patient chronically ill-looking, not distress. HEAD AND NECK: Pupils are equal and reactive to light. Anicteric. Neck was supple. No JVD. LUNGS: Good air entry. No wheezing or rales. Decreased air in bases. HEART: S1, S2. Regular, No murmur or gallop. ABDOMEN: Soft, nondistended, nontender. PEG site is clean. EXTREMITIES: No cyanosis or clubbing. less upper extremities edema. NEUROLOGIC: Very limited secondary to patient's status. Patient is moving all extremities spontaneously slowly; cranial nerves II through XII is limited evaluation. RECTAL/GENITOURINARY: Refused and deferred. PSYCHIATRIC: Mood and affect unable to obtain. Assessment/Plan Assessment/Plan ASSESSMENT: 1. Acute hypoxemic respiratory failure, possible COVID-19 infection. 2. Bilateral pneumonia. 3. Sepsis due to Pneumonia. 4. Severe dehydration. 5. Lactic acidosis. 6. Klebsiella ESBL bacteremia and Pneumonia 7. Dysphagia, status post PEG. 8. Psychiatric disorder. 9. prison resident. 10. Elevated Troponin most likely due to Demand ischemia. PLAN: In [facility], COVID-19 test negative X 2 (02/26/, 02/28) Dr. Hansen, Pulmonary Critical Care, Dr. Stokes from Infectious Disease, Dr. Barragan from Cardiology consultation. Abx: Ertapenem IV Code status: Full Code. DVT prophylaxis: Lovenox Inj. Follow up with the laboratory as well as culture. Lomotil PRN Consider transfer to [facility] today. Marky Go MD March 05, 2020 16:12
--- NOTE | 2020-03-05 17:30 | Procedure Note ---
DATE OF PROCEDURE: 03/05/2020 SURGEON: Clarke Liu MD. PROCEDURE: Upper endoscopy attempt to place a GJ tube, which failed, but we placed a G-tube. REASON FOR PROCEDURE: The procedure, risks, benefits, and possible consequences, including hemorrhage, aspiration, perforation and infection, and alternative treatments, were explained to the patient/legal guardian by Dr. Clarke Liu and the patient/legal guardian understood and accepted these risks. DESCRIPTION OF PROCEDURE: After informed consent was obtained and the patient was adequately sedated, Olympus upper endoscope was advanced from mouth in to the second portion of the duodenum and retroflexion was performed in the stomach. The patient had a G-tube in place. G-tube actually was ruptured. The tube was ruptured. We removed the G-tube and introduced a 22-Irish GJ tube, but every time we passed the tube into the duodenum, patient would cough it back up outside the stomach. We did that almost 5 times. Every time, we got into duodenum trying to advance the scope, he would cough and come back to the stomach. At this point, we realized that this is not going to happen. We decided just to place a 22-Irish G-tube replacement and terminated the procedure. SUMMARY OF FINDINGS: 1. EGD. 2. Failure of the GJ tube placement given the patient coughing it back up into the stomach and 22-Irish G-tube replacement. RECOMMENDATIONS: 1. We will resume tube feeding. 2. To continue on Reglan 10 mg IV q.6. 3. We will consider doing a procedure if patient does not tolerate the p.o. and when his cough is more stable. I want to thank, Dr. Go, for this kind referral. Clarke Liu M.D. DR: KINGS JOB#: [id number] CC: Marky Go M.D.; Fax#: [phone]
--- NOTE | 2020-03-05 17:44 | NUR ---
NURSE NOTES: Telephone report given to ASAD SUTTON of [facility]
[2020-03-05] MEDS: Ertapenem 1 GM in NS 55 ML IVPB SCH (17:56)
--- NOTE | 2020-03-05 19:30 | NUR ---
HAND-OFF: Report given to Gray Agosto
--- NOTE | 2020-03-05 19:35 | NUR ---
NURSE NOTES: Received pt from ASAD Feng. pt is observed in bed, eyes open, nonverbal, AO X1, no s/sx of pain noted at this time. pt is on room air, saturation: 99. no s/sx of respiratory distress noted. library monitor shows ST with HR of 119 at this time. no acute cardiac distress noted. G-tube site is patent and intact, clamped at this time d/t scheduled discharge tonight. will follow up with [facility] regarding arrival time. Rectal tube and F/C are patent and intact, draining well to gravity. sacral DTI noted, wound pic taken by previous nurse. FARIDEH PICC line is patent and intact, running D5 1/2 NS at 50 cc/hr. dressing dry and intact. bed in lowest position and locked, padded siderails up X3, all needs attended to. will continue to monitor.
[2020-03-05] MEDS: Dyna-Hex 2% Top Sol 2oz TOPIC SCH (20:20)
--- NOTE | 2020-03-05 20:20 | NUR ---
NURSE NOTES: all due meds given. rectal tube bag changed. will continue to monitor.
[2020-03-05 20:38] VITALS: BP 150/93
--- NOTE | 2020-03-05 20:47 | NUR ---
NURSE NOTES: per Nancy at [facility], okay to take pt with BP of 150/93.
[2020-03-05] MEDS ORDERED: NS 275ml ONE (20:53)
[2020-03-05] MEDS ORDERED: D5 1/2NS 1000ml IV ONE (20:53)
--- NOTE | 2020-03-05 20:54 | NUR ---
NURSE NOTES: pt discharged to [facility] sent with booties from previous retirement and discharge packet. pt transferred via gurney and accompanied by ambulance personnel. pt in stable condition.
--- NOTE | 2020-03-07 23:02 | Discharge Summary ---
Discharge Summary Discharge Summary _ DATE OF ADMISSION: 02/27/2020 DATE OF DISCHARGE: 03/05/2020 DISCHARGED BY: Dr. Marky Go CONSULTANTS: Dr. Camila Hansen BRIEF HOSPITAL COURSE: Patient is a 59-year-old gentleman with past medical history significant for pneumonia, who presented to the hospital from [facility] after he was noted to have respiratory distress, shortness of breath and cough. Patient has history of G-tube feeding due to prior history of sepsis. Patient has been treated for infection with vancomycin and Zosyn at the nursing facility, however, symptoms did not improve. He has been spiking fever 104 with diminished oxygen saturation. He was then transferred to the hospital via EMS. Shortly after initial evaluation in the emergency department , he was admitted to the hospital due to acute hypoxemic respiratory failure with possible COVID-19 infection and pneumonia. At ED, temperature was 104, he was hypoxic needing placement of nonrebreather mask. WBC did not show any leukocytosis. Hemoglobin 13, hematocrit 37, platelet 221. Sodium 142, potassium 4.0, chloride 105, bicarb 24, BUN 12, creatinine 1.2. Initial troponin 0 0.227. Second troponin 0 0.109. CRP 3.0. Lactic acid was 5.7 initially. Ferritin was 295. proBNP was 321. D-dimer was 9.14. ABG showed pH of 7.32, PCO2 of 36, PO2 of 154, 98% saturation. Chest x- ray showed bilateral infiltrates. Patient was admitted to ICU due to acute hypoxemic respiratory failure and pneumonia. He was given O2 support. He was placed on isolation. He was started empirically on vancomycin and azithromycin. Zosyn was switched to meropenem by ID. He came in with a PICC line. PICC line was removed due to possible line sepsis. He was placed on Lovenox for DVT prophylaxis. He was given nystatin for Princess intertrigo Patient had elevated cardiac enzymes, likely demand related. Lactic acid was likewise elevated. Electrocardiogram showed sinus tachycardia. There was no significant ST or T wave abnormality documented. Patient was hypotensive, he was given midodrine. Echocardiogram showed EF of 55%, with no wall motion abnormality. Troponin eventually trended down to normal. Blood pressure stabilized. O2 saturation was improved. He was eventually downgraded to [facility]. Blood culture showed growth of ESBL Klebsiella. Sputum culture showed growth of ESBL Klebsiella Initial SARS-CoV-2 was negative, however surveillance chest x-ray showed worsening infiltrate. Urine Legionella antigen negative. PICC line catheter tip did not show any growth. Meropenem was switched to ertapenem. Patient was noted to have elevated residual despite Reglan every 6 hours. Per GI, gastroparesis may be due to sepsis. He was given low-dose erythromycin and continued on Reglan. He had hypokalemia due to diarrhea. Rectal tube was inserted. He was given IV potassium supplement. He was given low material He continued to have elevated gastric residual. On 03/05/2019, he underwent EGD with attempt to place a GJ tube, however failed. A 22 Tamazight G-tube was then inserted. Patient tolerated procedure well. Advised to continue Reglan 10 mg every 6 hours. Patient was eventually transferred to [facility]. FINAL DIAGNOSES: Acute hypoxemic respiratory failure, possible COVID19 infection Bilateral pneumonia Sepsis due to pneumonia Severe dehydration Lactic acidosis Klebsiella ESBL bacteremia and pneumonia Princess intertrigo Dysphagia, status post PEG placement Gastroparesis Psychiatric disorder Elevated troponin most likely due to demand ischemia Muscle wasting and atrophy Status post EGD with attempt to place a JG tube, failed, status post G-tube replacement DISPOSITION: Patient was discharged to [facility]. I have been assigned to complete a discharge summary on this account, I was not involved with the patient's management.--SUBHA Arellano Jacqueline Robles NP March 07, 2020 23:02
== END 2020-03-05 20:54 | DRG 871 ==
LOC: EDBD 03:10 → EMR 03:25 → ICU 04:30 → EDBEDREQ 04:47 → 2W 02-29 02:09
PROC: 02HV33Z Insertion of Infusion Device into Superior Vena Cava, Percutaneous Approach (ICD-10-PCS; 2020-03-01)
PROC: 0DH63UZ Insertion of Feeding Device into Stomach, Percutaneous Approach (ICD-10-PCS; principal; 2020-03-05 10:37)
DX: A41.50 Gram-negative sepsis, unspecified (principal); J96.01 Acute respiratory failure with hypoxia; R65.21 Severe sepsis with septic shock; J15.0 Pneumonia due to Klebsiella pneumoniae; I24.8 Other forms of acute ischemic heart disease; Z43.1 Encounter for attention to gastrostomy; E11.43 Type 2 diabetes mellitus with diabetic autonomic (poly)neuropathy; E86.0 Dehydration; Z20.828 Contact with and (suspected) exposure to other viral communicable diseases; G40.909 Epilepsy, unspecified, not intractable, without status epilepticus; B37.9 Candidiasis, unspecified; Z88.8 Allergy status to other drugs, medicaments and biological substances; R13.10 Dysphagia, unspecified; B37.2 Candidiasis of skin and nail; K31.84 Gastroparesis; E87.6 Hypokalemia; F99 Mental disorder, not otherwise specified; R19.7 Diarrhea, unspecified
CPT/HCPCS: 36415; 36569; 36600; 71045; 74018; 76937; 80048; 80053; 80069; 80190; 80192; 80202; 81003; 82164; 82270; 82550; 82553; 82607; 82728; 82746; 82803; 82977; 83036; 83540; 83550; 83605; 83615; 83735; 83880; 84100; 84484; 85007; 85025; 85379; 85384; 85651; 86140; 87040; 87070; 87181; 87205; 87324; 87635; 93005; 93306; 93970; 94003; 94150; 96361; 96365; 96367; 96375; 99291; J2765; J7030; J8499

== ENCOUNTER 2020-05-02 09:04 | Inpatient (IN) | payer MEDICARE, MEDICAID ==
[~2020-05-02] VITALS: Ht 172.7 cm; Wt 64.4 kg
[2020-05-02] VITALS (17 sets, daily range): BP systolic 68–141; BP diastolic 52–98
[~2020-05-02 09:04] MED LIST: ACETAMINOPHEN325 M1 GT; ASPIRIN81 MG GT; ATIVAN1 MG GT; FOLIC ACID1 MG GT; JEVITY 1.2 CA1500 ML PO; LEVETIRACETAM750 MG PEG; MULTIVITAMINS1 EAC8 GT; PRO-AMATINE10 MG GT; RISPERDAL0.5 MG GT; TRAMADOL HCL50 MG GT; VALPROIC A250 MG/5 M GT; VANCOMYCIN HCL125 MG GT; VITAMIN B-1100 MG GT; VITAMIN C500 M1 GT; ZINC-220220 MG GT; ZOLPIDEM TARTRAT5 MG GT; ZOSYN 3.373.375 GM/1 IVPB
[2020-05-02] MEDS ORDERED: Vancomycin 1.5gm/NS Premix 275 ML IVPB ONE (09:15)
[2020-05-02] MEDS ORDERED: Azithromycin 500 MG in NS 275 ML IV ONE (09:15)
[2020-05-02] MEDS ORDERED: Acetaminophen 650 MG SUPP RECTAL ONE ×2 (09:15→09:45)
[2020-05-02] MEDS ORDERED: Cefepime HCl 2 GM in NS 110 ML IV ONE (09:15)
[2020-05-02] MEDS ORDERED: METOCLOPRAMIDE10 M1 PEG (09:18)
[2020-05-02] MEDS ORDERED: MAGNESIUM400 M1 GT (09:18)
[2020-05-02] MEDS ORDERED: LOVENOX10 M4 SUBQ (09:18)
[2020-05-02] MEDS ORDERED: ZOFRAN4 M1 PEG (09:18)
[2020-05-02] MEDS ORDERED: NITRO0.4 SL (09:18)
[2020-05-02] MEDS ORDERED: POLYETHYLENE GL17 GM PEG (09:18)
[2020-05-02] MEDS ORDERED: LOPERAMIDE2 MG PEG (09:18)
--- NOTE | 2020-05-02 09:50 | Diagnostic Imaging Report ---
EXAM: XR Chest, 1 View CLINICAL HISTORY: COUGH TECHNIQUE: Frontal view of the chest. COMPARISON: 03/04/20 FINDINGS: Lungs: There is a moderately consolidating infiltrate in the right lower lobe consistent with pneumonia. The left lung appears clear. Pleural space: Unremarkable. No pneumothorax. Heart: Unremarkable. No cardiomegaly. Mediastinum: Unremarkable. Bones/joints: Unremarkable. IMPRESSION: There is a moderately consolidating infiltrate in the right lower lobe consistent with pneumonia.
[2020-05-02 09:55] LABS: BASOPHILS % (AUTO) 0.6 % (0.0-2.0); HEMATOCRIT 37.4 % (42.0-52.0); HEMOGLOBIN 12.5 G/DL (14.2-18.0); LYMPHOCYTES % (AUTO) 11.1 % (20.0-45.0); MEAN CORPUSCULAR VOLUME 94 FL (80-99); MONOCYTES % (AUTO) 4.1 % (1.0-10.0); NEUTROPHILS % (AUTO) 84.1 % (45.0-75.0); PLATELET COUNT 140 K/UL (150-450); RED BLOOD COUNT 3.97 M/UL (4.70-6.10); RED CELL DISTRIBUTION WIDTH 12.1 % (11.6-14.8); WHITE BLOOD COUNT 7.8 K/UL (4.8-10.8)
[2020-05-02 10:14] LABS: ALANINE AMINOTRANSFERASE 56 U/L (12-78); ALBUMIN 3.1 G/DL (3.4-5.0); ALBUMIN/GLOBULIN RATIO 0.8 (1.0-2.7); ANION GAP 8 mmol/L (5-15); ASPARTATE AMINO TRANSFERASE 15 U/L (15-37); BILIRUBIN,TOTAL 0.5 MG/DL (0.2-1.0); BLOOD UREA NITROGEN 28 mg/dL (7-18); CALCIUM 8.7 MG/DL (8.5-10.1); CARBON DIOXIDE 27 MMOL/L (21-32); CHLORIDE 101 MMOL/L (98-107); CKMB 0.6 NG/ML (0.0-3.6); CREATININE 1.3 MG/DL (0.55-1.30); PHOSPHORUS 2.4 MG/DL (2.5-4.9); POTASSIUM 4.4 MMOL/L (3.5-5.1); SODIUM 136 MMOL/L (136-145)
[2020-05-02 10:29] LABS: ALKALINE PHOSPHATASE 79 U/L (46-116)
--- NOTE | 2020-05-02 11:12 | Diagnostic Imaging Report ---
EXAM: XR Chest, 1 View CLINICAL HISTORY: S/P LINE TECHNIQUE: Frontal view of the chest. COMPARISON: No relevant prior studies available. FINDINGS/IMPRESSION: There is an endotracheal tube which terminates above the westley. There is a right IJ catheter which terminates in the superior vena cava at the cavoatrial junction. EKG leads overlie the patient. There is opacity within the right lower lung field, suspicious for infiltrate. Small right parapneumonic effusion. No pneumothorax. The heart size is prominent. The aorta is calcified and tortuous.
[2020-05-02 11:26] LABS: APPEARANCE,URINE SLIGHTLY CLOUDY; BILIRUBIN, URINE NEGATIVE (NEGATIVE); GLUCOSE, URINE (UA) NEGATIVE (NEGATIVE); KETONES,URINE 1+ (NEGATIVE); LEUKOCYTE ESTERASE ,URINE 2+ (NEGATIVE); NITRITE,URINE NEGATIVE (NEGATIVE); PH,URINE 6 (4.5-8.0); PROTEIN,URINE 3+ (NEGATIVE); UROBILINOGEN,URINE NORMAL MG/DL (0.0-1.0)
[2020-05-02 11:29] LABS: COLOR,URINE YELLOW
--- NOTE | 2020-05-02 11:34 | Emergency Room Report ---
History of Present Illness General Chief Complaint: Dyspnea/Respdistress Present Illness HPI History of present illness: 59-year-old male with past medical history of dementia and respiratory failure presents by ambulance for shortness of breath. Patient was found coughing uncontrollably and was noted to have desaturations prior to arrival. History is limited secondary to patient's altered mental status. He is currently placed on 15 L facemask by EMS. The patient's symptoms were gradual onset, severity was moderate, duration since 1 day. Past medical history: Dementia, respiratory failure Past surgical history: PEG tube Smoking: [ Denies] Alcohol use: [ Denies] Drug use: [ Denies] Review of systems: CONST: Positive fevers or chills, No night sweats PULMONARY: No productive cough, No shortness of breath CARDIAC: No chest pain, No palpitations GI: No vomiting, No diarrhea , No melena_or_BRBPR : No dysuria, No hematuria, No discharge NEURO: No new_focal_weakness_or_numbness, No confusion, No vision changes 14 point Review of Systems is otherwise negative except per HPI Physical Exam: GENERAL: On [place] ill-appearing., no acute distress Spo2 80% on [RA], abnormal cachectic. Secretions all around the mouth. EYES: Extraocular muscles are intact. Conjunctivae clear. Lids without swelling ENT: External nose and ear normal_in_appearance. Oropharynx clear. Head_ atraumatic, Moist_oral_mucosa NECK: No JVD. No meningismus. No thyromegaly. Supple. Trachea midline RESP: Creased work of breathing. Subcostal retractions. Rhonchi bilaterally. Symmetric rise. No stridor. CARDIAC: Cardiac. Regular rhythm on_auscultation No_significant pedal edema. ABDOMEN: Soft. Nondistended. Nontender_No_rebound_or_guarding. PEG tube in place MSK: Normal muscle tone, without rigidity. Extremities without asymmetric deformity or swelling. SKIN: Warm and dry. No visible cyanosis or pallor NEUROLOGIC: Alert, oriented x0, nonverbal. Motor_and_sensation_grossly_intact. No truncal ataxia. Psych: Normal mood and affect, normal judgment and insight - COORDINATION OF CARE Case was discussed with: Patient patient's physician Any labs and imaging that were ordered were interpreted as part of the medical decision making: Medical Decision Making/Plan: Differential includes pneumonia, bronchitis, CHF, pulmonary edema, pulmonary embolism, pleural effusion among others. CXR seems to be consistent with pneumonia, rather than CHF. Patient has a lobar right lower lobe pneumonia. Labs show no acute abnormalities. COVID is negative. EKG shows sinus tachycardia with no acute ischemia. Symptoms are not likely to be pulmonary embolism, patient no significant PE risk factors, and has more likely alternate cause of symptoms. Presentation not consistent with ischemia / ACS. Based on patient's port score , has high enough mortality risk that inpatient admission for IV antibiotics and clinical observation is most appropriate. Significant respiratory distress, patient was intubated for airway control. Patient given cefepime and Rocephin. Patient likely has severe sepsis. Take within normal limits. Blood cultures drawn. Patient refused full NS 30 cc /kg bolus because of history of CHF. I spoke with Dr. Go, and reviewed the patients presentation, workup, results , and treatment. They will admit the patient for further care and evaluation, and assume care of the patient at this time. CRITICAL CARE TIME: I spent 60minutes of critical care time. This time excludes any separately billable procedures. Organ systems at risk include: [ Pulmonary / respiratory] Treatments/Evaluations: Emergent and rapid respiratory assessment and management with continuous monitoring. Advanced airway equipment at the ready, while the patient's respiratory symptoms were stabilized. Given the patients presentation with pneumonia with [hypoxic respiratory failure], there existed the potential for imminent deterioration in the patient' s condition due to respiratory compromise. Organ systems at risk for failure without immediate intervention include pulmonary / respiratory. This time was spent reviewing the patients records, reviewing vital signs, reassessing the patients clinical status, discussing the case and care with staff and consultants, and performing high-complexity medical decision making. Allergies: Coded Allergies: DIPHENHYDRAMINE (Verified Allergy, Unknown, 02/27/20) COVID-19 Screening Contact w/high risk pt: No Recent Travel to affected area: No Experienced COVID-19 symptoms?: Yes COVID-19 symptoms experienced: Fever (T>100.4F or >38C), Shortness of Breath, Cough COVID-19 Testing performed SAW FEEDER: Yes COVID-19 Screening: PUI COVID-19 COVID-19 Testing Source: [facility] Documentation-[facility] Hx Cardiac Problems: No - sepsis Hx Cancer: No Hx Gastrointestinal Problems: Yes - G-tube, gastritis Hx Neurological Problems: No - seizures Physical Exam Vital Signs Date Time Temp Pulse Resp B/P (MAP) Pulse Ox O2 Delivery O2 Flow Rate FiO2 05/02/20 08:59 103.1 170 26 84/40 (55) 94 Non-Rebreather 15.0 Procedures Critical Care Time Critical Care Time Critical Care Statement Organ systems at risk include: [cardiac / circulatory] Critical care performed for 60 minutes. Time is exclusive of separately billable procedures. Time includes: direct patient care, continuous monitoring and multiple patient reassessment, coordination of patient care, review of patient's medical records , medical consultation, family consultation regarding treatment decisions and documentation of patient care. Central Line Progress Central Line Placement by me: Patient consented, sterilely draped, full prep, gown, glove, mask, time out performed. Maximal sterile barrier technique used. Anesthesia: 1% lidocaine locally Location: Right IJ Device: Multiple lumen Technique: Seldinger technique. Secured with suture. Results: Venous return from all ports with easy saline flush. No complications. Compl : None Guide wire taken out, retrieved and disposed of. ED Procedural Ultrasound by me: Central line placed by me using concurrent ultrasound guidance. Real time image archived in the medical record confirms vascular anatomy. Chest X-ray 1V Interpreted by me: Central line terminates in SVC, Normal soft tissue, No evidence of pneumothorax. Intubation Progress Procedure Note: Endotracheal Intubation by me: Pre assessment performed. See preceding note for details. Pre-oxygenation performed with 100% oxygen RSI: Performed w/o complication or hypoxic events. Medications as ordered. Emergency Endotracheal Intubation: Consent unable to be obtained due to emergent nature of procedure and airway assessment this patient was prepared for endotracheal intubation with preoxygenation and airway positioning. The patient underwent rapid sequence induction and endotracheal intubation utilizing direct visualization laryngoscopy. The endotracheal tube was placed between the vocal cords and placement was confirmed with fogging of the tube, end title CO2, and equal bilateral chest rise as well as absence of borborygmi over the epigastrium. Chest x-ray was obtained for final confirmation. There were no complications. Blade: Mac 3 ET Tube: 7.5 cm Depth: 23 cm at the lip Complications: No hypoxic events or bradycardia Intubation confirmed by colorimetric CO2, equal breath sounds, quiet over the stomach. Intubated with full C spine precautions, with the assistance of posting specialist. Chest X-ray: No acute disease. Normal heart size. Mediastinum normal. No infiltrate. No pneumothorax. ETT in appropriate position above Jolene. OG/NG tube in appropriate position Indication: ETT placement confirmation Impression: Appropriately positioned ETT Views: 1 view The X-rays were independently viewed by me and interpreted contemporaneously by me. Medical Decision Making Diagnostic Impression: Primary Impression: Acute respiratory failure Additional Impressions: Nosocomial pneumonia Muscle wasting and atrophy, not elsewhere classified, multiple sites COPD (chronic obstructive pulmonary disease) History of CVA (cerebrovascular accident) Seizure disorder EKG Diagnostic Results PA Scribe Text 12-lead EKG (interpreted by me) Time: 1057 Indication: [Rhythm analysis] Tracing visualized and Interpreted by me. Rhythm: Sinus tachycardia Rate: 146 bpm QTc: 439 Morphology: No_significant_ST_elevations_or_depressions, No STEMI Impression: Sinus tachycardia Rhythm Strip Diag. Results Rhythm Strip Time: 12:00 EP Interpretation: yes Rate: 145 Rhythm: other - Sinus tachycardia Chest X-Ray Diagnostic Results Chest X-Ray Diagnostic Results : PA Scribe Text Chest X-ray: Views: 1 view(s) Indication: Hypoxia findings: Right lower lung pneumonia, right parapneumonic effusion, no pneumothorax Findings: Right lower lung pneumonia, right parapneumonic effusion, no pneumothorax The X-ray(s) were independently viewed and interpreted contemporaneously - Electronically signed by Dafne haskins DO Chest X-ray: Views: 1 view(s) Indication: Right lower lung pneumonia, right parapneumonic effusion, no pneumothorax Findings: Intubated. R IJ central line. No PTX. Right lower lung pneumonia, right parapneumonic effusion, no pneumothorax The X-ray(s) were independently viewed and interpreted contemporaneously - Electronically signed by Dafne haskins DO Last Vital Signs Date Time Temp Pulse Resp B/P (MAP) Pulse Ox O2 Delivery O2 Flow Rate FiO2 05/02/20 10:56 102.5 05/02/20 10:52 148 16 139/85 100 Mechanical Ventilator 15.0 Disposition: ADMITTED INPATIENT Admit Decision Time: 12:00 Condition: Critical Referrals: NON PHYSICIAN (PCP) Dafne Alegria D.O. May 02, 2020 11:34
[2020-05-02] MEDS ORDERED: Miralax 17gm pkt GT PRN (12:45)
[2020-05-02] MEDS ORDERED: Albuterol/Ipratropium 3ml neb HHN PRN (12:45)
[2020-05-02] MEDS ORDERED: Morphine Sulfate 4mg/ml Inj (IV USE ONLY) IVP PRN (12:45)
--- NOTE | 2020-05-02 12:47 | Consultation ---
History of Present Illness General Date patient seen: May 02, 2020 Chief Complaint: Dyspnea/Respdistress Present Illness HPI 59-year-old with past medical history of dementia, CVA, PEG, seizures, cachexia , snf resident brought in by paramedics with CC of shortness of breath , coughing and desaturations. Pt was in respiratory failure and was orally intubated and was started on Levophed drip. Currently pt is sedated and looks comfortable. Allergies: Coded Allergies: DIPHENHYDRAMINE (Verified Allergy, Unknown, 02/27/20) Medication History Scheduled Ascorbic Acid* (Vitamin C*), 1,000 MG GT DAILY, (Reported) Aspirin* (Aspirin*), 81 MG GT DAILY, (Reported) Enoxaparin* (Lovenox*), 40 MG SUBQ DAILY, (Reported) Folic Acid* (Folic Acid*), 1 MG GT DAILY, (Reported) Lactose-Reduced Food/Fiber (Jevity 1.2 Memo Liquid), 1,500 ML PO BID, (Reported) Levetiracetam (Levetiracetam), 700 MG PEG TWICE A DAY, (Reported) Loperamide Hcl (Loperamide), 2 MG PEG Q6HR, (Reported) Lorazepam* (Ativan*), 1 MG GT Q6HR, (Reported) Magnesium Oxide (Magnesium), 400 MG GT DAILY, (Reported) Metoclopramide Hcl (Metoclopramide Hcl), 10 MG PEG Q6HR, (Reported) Midodrine (Midodrine HCl), 10 MG GT Q8HR, (Reported) Multivitamin With Minerals (Multivitamins With Minerals*), 1 TAB GT DAILY, ( Reported) Ulnnflqtzjyo-Ymzp-Uosnkzub,Iso (Zosyn 3.375 Gm Pre Mix-Bag), 3.375 GM IVPB EVERY 8 HOURS, (Reported) Risperidone* (Risperdal*), 1 MG GT Q12HR, (Reported) Thiamine Hcl* (Vitamin B-1*), 100 MG GT Q12HR, (Reported) Valproate Sodium (Valproic Acid), 250 MG GT Q12HR, (Reported) Vancomycin Hcl (Vancomycin Hcl), 1,000 MG GT Q12HR, (Reported) Zinc Sulfate (Zinc-220*), 220 MG GT DAILY, (Reported) Scheduled PRN Acetaminophen* (Acetaminophen 325MG Tablet*), 325 MG GT Q8HR PRN for For Pain, ( Reported) Acetaminophen* (Acetaminophen 325MG Tablet*), 650 MG GT Q4HR PRN for TEMP > 100.4nte 3gm IN 24HRS, (Reported) Nitroglycerin 0.4MG table* (Nitroglycerin*), 0.4 MG SL .Q5MIN X 3 DOSES PRN for CHEST PAIN, (Reported) Ondansetron (Zofran), 4 MG PEG Q6H PRN for Nausea & Vomiting, (Reported) Polyethylene Glycol 3350* (Polyethylene Glycol 3350*), 17 GM PEG BEDTIME PRN for Constipation, (Reported) Tramadol Hcl* (Ultram*), 50 MG GT Q8HR PRN for For Pain, (Reported) Zolpidem Tartrate* (Zolpidem Tartrate*), 5 MG GT BEDTIME PRN for Insomnia, ( Reported) Patient History Healthcare decision maker Resuscitation status Advanced Directive on File Past Medical/Surgical History Past Medical/Surgical History: (1) Seizure disorder (2) History of CVA (cerebrovascular accident) (3) COPD (chronic obstructive pulmonary disease) (4) Muscle wasting and atrophy, not elsewhere classified, multiple sites Review of Systems All Other Systems: negative except mentioned in HPI Physical Exam General Appearance: cachetic, thin Lines, tubes and drains: peripheral HEENT: normocephalic, atraumatic Neck: non-tender, normal alignment Respiratory/Chest: chest wall non-tender, lungs clear Breasts: no masses Cardiovascular/Chest: normal rate Abdomen: normal bowel sounds, non tender Genitourinary/Rectal: normal genital exam, normal rectal exam Extremities: normal range of motion, non-tender Skin Exam: normal pigmentation Neurologic: director speech language II-XII grossly normal Last 24 Hour Vital Signs Date Time Temp Pulse Resp B/P (MAP) Pulse Ox O2 Delivery O2 Flow Rate FiO2 05/02/20 12:26 102.5 138 24 120/76 100 Mechanical Ventilator 15.0 05/02/20 10:56 102.5 05/02/20 10:52 102.5 148 16 139/85 100 Mechanical Ventilator 15.0 05/02/20 10:25 140 16 100 05/02/20 09:45 105.3 156 25 115/82 100 Non-Rebreather 15.0 05/02/20 09:44 170 26 Non-Rebreather 15.0 05/02/20 08:59 103.1 170 26 84/40 (55) 94 Non-Rebreather 15.0 Laboratory Tests Test 05/02/20 09:03 05/02/20 09:08 05/02/20 09:25 05/02/20 10:00 Arterial Blood pH 7.412 (7.350-7.450) Arterial Blood Partial Pressure CO2 39.4 mmHg (35.0-45.0) Arterial Blood Partial Pressure O2 129.5 mmHg (75.0-100.0) H Arterial Blood HCO3 24.5 mmol/L (22.0-26.0) Arterial Blood Oxygen Saturation 98.4 % (95-100) Arterial Blood Base Excess 0 (-2-2) Nicolas Test Positive Troponin I 0.010 ng/mL (0.000-0.056) White Blood Count 7.8 K/UL (4.8-10.8) Red Blood Count 3.97 M/UL (4.70-6.10) L Hemoglobin 12.5 G/DL (14.2-18.0) L Hematocrit 37.4 % (42.0-52.0) L Mean Corpuscular Volume 94 FL (80-99) Mean Corpuscular Hemoglobin 31.4 PG (27.0-31.0) H Mean Corpuscular Hemoglobin Concent 33.4 G/DL (32.0-36.0) Red Cell Distribution Width 12.1 % (11.6-14.8) Platelet Count 140 K/UL (150-450) L Mean Platelet Volume 9.3 FL (6.5-10.1) Neutrophils (%) (Auto) 84.1 % (45.0-75.0) H Lymphocytes (%) (Auto) 11.1 % (20.0-45.0) L Monocytes (%) (Auto) 4.1 % (1.0-10.0) Eosinophils (%) (Auto) 0.0 % (0.0-3.0) Basophils (%) (Auto) 0.6 % (0.0-2.0) Prothrombin Time 11.3 SEC (9.30-11.50) Prothromb Time International Ratio 1.0 (0.9-1.1) Activated Partial Thromboplast Time 32 SEC (23-33) Sodium Level 136 MMOL/L (136-145) Potassium Level 4.4 MMOL/L (3.5-5.1) Chloride Level 101 MMOL/L (98-107) Carbon Dioxide Level 27 MMOL/L (21-32) Anion Gap 8 mmol/L (5-15) Blood Urea Nitrogen 28 mg/dL (7-18) H Creatinine 1.3 MG/DL (0.55-1.30) Estimat Glomerular Filtration Rate 56.3 mL/min (>60) Glucose Level 157 MG/DL (74-106) H Lactic Acid Level 2.00 mmol/L (0.4-2.0) Calcium Level 8.7 MG/DL (8.5-10.1) Phosphorus Level 2.4 MG/DL (2.5-4.9) L Magnesium Level 1.3 MG/DL (1.8-2.4) L Total Bilirubin 0.5 MG/DL (0.2-1.0) Aspartate Amino Transf (AST/SGOT) 15 U/L (15-37) Alanine Aminotransferase (ALT/SGPT) 56 U/L (12-78) Alkaline Phosphatase 79 U/L (46-116) Creatine Kinase MB 0.6 NG/ML (0.0-3.6) Pro-B-Type Natriuretic Peptide 226 pg/mL (0-125) H Total Protein 7.1 G/DL (6.4-8.2) Albumin 3.1 G/DL (3.4-5.0) L Globulin 4.0 g/dL Albumin/Globulin Ratio 0.8 (1.0-2.7) L Lipase 15 U/L (73-393) L Urine Color Yellow Urine Appearance Slightly cloudy Urine pH 6 (4.5-8.0) Urine Specific [place] 1.005 (1.005-1.035) Urine Protein 3+ (NEGATIVE) H Urine Glucose (UA) Negative (NEGATIVE) Urine Ketones 1+ (NEGATIVE) H Urine Blood 5+ (NEGATIVE) H Urine Nitrite Negative (NEGATIVE) Urine Bilirubin Negative (NEGATIVE) Urine Urobilinogen Normal MG/DL (0.0-1.0) Urine Leukocyte Esterase 2+ (NEGATIVE) H Urine RBC Tntc /HPF (0 - 0) H Urine WBC 10-15 /HPF (0 - 0) H Urine Squamous Epithelial Cells Few /LPF (NONE/OCC) Urine Bacteria Few /HPF (NONE) Microbiology Date/Time Source Procedure Growth Status 05/02/20 09:25 Nasopharynx SARS-CoV-2 RdRp Gene Assay - Final Complete Height (Feet): 5 Height (Inches): 8.00 Weight (Pounds): 160 Assessment/Plan Problem List: (1) Acute respiratory failure ICD Codes: J96.00 - Acute respiratory failure, unspecified whether with hypoxia or hypercapnia SNOMED: 23285788 (2) Nosocomial pneumonia ICD Codes: J18.9 - Pneumonia, unspecified organism; Y95 - Nosocomial condition SNOMED: 393206375 (3) COPD (chronic obstructive pulmonary disease) ICD Codes: J44.9 - Chronic obstructive pulmonary disease, unspecified SNOMED: 52050363 (4) Seizure disorder ICD Codes: G40.909 - Epilepsy, unspecified, not intractable, without status epilepticus SNOMED: 577984555 (5) History of CVA (cerebrovascular accident) ICD Codes: Z86.73 - Personal history of transient ischemic attack (TIA), and cerebral infarction without residual deficits SNOMED: 996803896 (6) Muscle wasting and atrophy, not elsewhere classified, multiple sites ICD Codes: M62.59 - Muscle wasting and atrophy, not elsewhere classified, multiple sites SNOMED: 36919757 Respiratory: monitor respiratory rate, adjust FIO2, CXR Cardiac: continue pressors, continue to monitor HR/BP Renal: F/U I&O, check electrolytes Infectious Disease: check cultures Gastrointestinal: continue feedings/current rate Endocrine: monitor blood sugar Hematologic: monitor H/H, transfuse if hgb<8.5 Neurologic: PRN Ativan, PRN Morphine, keep patient comfortable Affect: PRN ativan Disposition: keep in ICU Notes 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
[2020-05-02] MEDS ORDERED: Amikacin Rx to dose MISC PRN (13:00)
[2020-05-02] MEDS ORDERED: Rx Monitoring Vancomycin MISC PRN (13:00)
[2020-05-02] MEDS ORDERED: Rocuronium Bromide 50mg/5ml Inj IV ONE (13:15)
[2020-05-02] MEDS ORDERED: Etomidate 40mg/20ml Inj IV ONE (13:15)
[2020-05-02] MEDS: Norepinephrine 4mg/NS Premix 250 ML IV SCH ×2 (14:00→20:23)
--- NOTE | 2020-05-02 14:06 | Consultation ---
History of Present Illness General Date patient seen: May 02, 2020 Chief Complaint: Dyspnea/Respdistress Present Illness HPI 59 y/o M with hx of Dementia, seizure disorder, muscle weakness and atrophy ( not characterized), psychiatric disorder, dysphagia s/p GT, PR resident ( [facility]) presented to ED on 05/02/20 with SOB, cough and desaturation. Was placed on 15L face mask by EMS. Of note, patient was admitted here on February 2020 with SOB and fever , respiratory failure requiring NRB. At the time was neg for COVID19. Was found to have ESBL K.pna bacteremia and pneumonia Allergies: Coded Allergies: DIPHENHYDRAMINE (Verified Allergy, Unknown, 02/27/20) Medication History Scheduled Ascorbic Acid* (Vitamin C*), 1,000 MG GT DAILY, (Reported) Aspirin* (Aspirin*), 81 MG GT DAILY, (Reported) Enoxaparin* (Lovenox*), 40 MG SUBQ DAILY, (Reported) Folic Acid* (Folic Acid*), 1 MG GT DAILY, (Reported) Lactose-Reduced Food/Fiber (Jevity 1.2 Memo Liquid), 1,500 ML PO BID, (Reported) Levetiracetam (Levetiracetam), 700 MG PEG TWICE A DAY, (Reported) Loperamide Hcl (Loperamide), 2 MG PEG Q6HR, (Reported) Lorazepam* (Ativan*), 1 MG GT Q6HR, (Reported) Magnesium Oxide (Magnesium), 400 MG GT DAILY, (Reported) Metoclopramide Hcl (Metoclopramide Hcl), 10 MG PEG Q6HR, (Reported) Midodrine (Midodrine HCl), 10 MG GT Q8HR, (Reported) Multivitamin With Minerals (Multivitamins With Minerals*), 1 TAB GT DAILY, ( Reported) Vgbwktraoheq-Yzzd-Sqfbdgsl,Iso (Zosyn 3.375 Gm Pre Mix-Bag), 3.375 GM IVPB EVERY 8 HOURS, (Reported) Risperidone* (Risperdal*), 1 MG GT Q12HR, (Reported) Thiamine Hcl* (Vitamin B-1*), 100 MG GT Q12HR, (Reported) Valproate Sodium (Valproic Acid), 250 MG GT Q12HR, (Reported) Vancomycin Hcl (Vancomycin Hcl), 1,000 MG GT Q12HR, (Reported) Zinc Sulfate (Zinc-220*), 220 MG GT DAILY, (Reported) Scheduled PRN Acetaminophen* (Acetaminophen 325MG Tablet*), 325 MG GT Q8HR PRN for For Pain, ( Reported) Acetaminophen* (Acetaminophen 325MG Tablet*), 650 MG GT Q4HR PRN for TEMP > 100.4nte 3gm IN 24HRS, (Reported) Nitroglycerin 0.4MG table* (Nitroglycerin*), 0.4 MG SL .Q5MIN X 3 DOSES PRN for CHEST PAIN, (Reported) Ondansetron (Zofran), 4 MG PEG Q6H PRN for Nausea & Vomiting, (Reported) Polyethylene Glycol 3350* (Polyethylene Glycol 3350*), 17 GM PEG BEDTIME PRN for Constipation, (Reported) Tramadol Hcl* (Ultram*), 50 MG GT Q8HR PRN for For Pain, (Reported) Zolpidem Tartrate* (Zolpidem Tartrate*), 5 MG GT BEDTIME PRN for Insomnia, ( Reported) Patient History Healthcare decision maker Resuscitation status Advanced Directive on File Patient History Narrative PMhx: as above Shx: reviewed Fhx: non contributory Review of Systems All Other Systems: negative except mentioned in HPI Physical Exam Physical Exam Narrative GENERAL: On [place] ill-appearing., no acute distress Spo2 80% on [RA], abnormal cachectic. Secretions all around the mouth. EYES: Extraocular muscles are intact. Conjunctivae clear. Lids without swelling ENT: External nose and ear normal_in_appearance. Oropharynx clear. Head_ atraumatic, Moist_oral_mucosa NECK: No JVD. No meningismus. No thyromegaly. Supple. Trachea midline RESP: Creased work of breathing. Subcostal retractions. Rhonchi bilaterally. Symmetric rise. No stridor. CARDIAC: Cardiac. Regular rhythm on_auscultation No_significant pedal edema. ABDOMEN: Soft. Nondistended. Nontender_No_rebound_or_guarding. PEG tube in place MSK: Normal muscle tone, without rigidity. Extremities without asymmetric deformity or swelling. SKIN: Warm and dry. No visible cyanosis or pallor Last 24 Hour Vital Signs Date Time Temp Pulse Resp B/P (MAP) Pulse Ox O2 Delivery O2 Flow Rate FiO2 7/19/20 12:26 102.5 138 24 120/76 100 Mechanical Ventilator 15.0 05/02/20 11:20 126 16 80 05/02/20 10:56 102.5 05/02/20 10:52 102.5 148 16 139/85 100 Mechanical Ventilator 15.0 05/02/20 10:25 140 16 100 05/02/20 09:45 105.3 156 25 115/82 100 Non-Rebreather 15.0 05/02/20 09:44 170 26 Non-Rebreather 15.0 05/02/20 08:59 103.1 170 26 84/40 (55) 94 Non-Rebreather 15.0 Laboratory Tests Test 05/02/20 09:03 05/02/20 09:08 05/02/20 09:25 05/02/20 10:00 Arterial Blood pH 7.412 (7.350-7.450) Arterial Blood Partial Pressure CO2 39.4 mmHg (35.0-45.0) Arterial Blood Partial Pressure O2 129.5 mmHg (75.0-100.0) H Arterial Blood HCO3 24.5 mmol/L (22.0-26.0) Arterial Blood Oxygen Saturation 98.4 % (95-100) Arterial Blood Base Excess 0 (-2-2) Nicolas Test Positive Troponin I 0.010 ng/mL (0.000-0.056) White Blood Count 7.8 K/UL (4.8-10.8) Red Blood Count 3.97 M/UL (4.70-6.10) L Hemoglobin 12.5 G/DL (14.2-18.0) L Hematocrit 37.4 % (42.0-52.0) L Mean Corpuscular Volume 94 FL (80-99) Mean Corpuscular Hemoglobin 31.4 PG (27.0-31.0) H Mean Corpuscular Hemoglobin Concent 33.4 G/DL (32.0-36.0) Red Cell Distribution Width 12.1 % (11.6-14.8) Platelet Count 140 K/UL (150-450) L Mean Platelet Volume 9.3 FL (6.5-10.1) Neutrophils (%) (Auto) 84.1 % (45.0-75.0) H Lymphocytes (%) (Auto) 11.1 % (20.0-45.0) L Monocytes (%) (Auto) 4.1 % (1.0-10.0) Eosinophils (%) (Auto) 0.0 % (0.0-3.0) Basophils (%) (Auto) 0.6 % (0.0-2.0) Prothrombin Time 11.3 SEC (9.30-11.50) Prothromb Time International Ratio 1.0 (0.9-1.1) Activated Partial Thromboplast Time 32 SEC (23-33) Sodium Level 136 MMOL/L (136-145) Potassium Level 4.4 MMOL/L (3.5-5.1) Chloride Level 101 MMOL/L (98-107) Carbon Dioxide Level 27 MMOL/L (21-32) Anion Gap 8 mmol/L (5-15) Blood Urea Nitrogen 28 mg/dL (7-18) H Creatinine 1.3 MG/DL (0.55-1.30) Estimat Glomerular Filtration Rate 56.3 mL/min (>60) Glucose Level 157 MG/DL (74-106) H Lactic Acid Level 2.00 mmol/L (0.4-2.0) Calcium Level 8.7 MG/DL (8.5-10.1) Phosphorus Level 2.4 MG/DL (2.5-4.9) L Magnesium Level 1.3 MG/DL (1.8-2.4) L Total Bilirubin 0.5 MG/DL (0.2-1.0) Aspartate Amino Transf (AST/SGOT) 15 U/L (15-37) Alanine Aminotransferase (ALT/SGPT) 56 U/L (12-78) Alkaline Phosphatase 79 U/L (46-116) Creatine Kinase MB 0.6 NG/ML (0.0-3.6) Pro-B-Type Natriuretic Peptide 226 pg/mL (0-125) H Total Protein 7.1 G/DL (6.4-8.2) Albumin 3.1 G/DL (3.4-5.0) L Globulin 4.0 g/dL Albumin/Globulin Ratio 0.8 (1.0-2.7) L Lipase 15 U/L (73-393) L Urine Color Yellow Urine Appearance Slightly cloudy Urine pH 6 (4.5-8.0) Urine Specific [place] 1.005 (1.005-1.035) Urine Protein 3+ (NEGATIVE) H Urine Glucose (UA) Negative (NEGATIVE) Urine Ketones 1+ (NEGATIVE) H Urine Blood 5+ (NEGATIVE) H Urine Nitrite Negative (NEGATIVE) Urine Bilirubin Negative (NEGATIVE) Urine Urobilinogen Normal MG/DL (0.0-1.0) Urine Leukocyte Esterase 2+ (NEGATIVE) H Urine RBC Tntc /HPF (0 - 0) H Urine WBC 10-15 /HPF (0 - 0) H Urine Squamous Epithelial Cells Few /LPF (NONE/OCC) Urine Bacteria Few /HPF (NONE) Microbiology Date/Time Source Procedure Growth Status 05/02/20 09:25 Nasopharynx SARS-CoV-2 RdRp Gene Assay - Final Complete Height (Feet): 5 Height (Inches): 8.00 Weight (Pounds): 160 Medications Current Medications Medications (Trade) Dose Ordered Sig/Damion Route PRN Reason Start Time Stop Time Status Last Admin Dose Admin Acetaminophen (Tylenol) 650 mg Q4H PRN GT fever 05/02/20 12:45 06/01/20 12:44 Albuterol/ Ipratropium (Albuterol/ Ipratropium) 3 ml Q4H PRN HHN Shortness of Breath 05/02/20 12:45 05/07/20 12:44 Amikacin Protocol (Amikacin pharmacy to dose) 1 ea DAILY PRN MISC . 05/02/20 13:00 06/01/20 12:59 Amikacin Sulfate 1000 mg/Sodium Chloride 114 ml @ 114 mls/hr Q36H IV 05/02/20 15:00 05/09/20 14:59 Ertapenem 1 gm/ Sodium Chloride 55 ml @ 110 mls/hr Q24H IV 05/02/20 21:00 05/07/20 20:59 Heparin Sodium (Porcine) (Heparin 5000 units/ml) 5,000 units EVERY 12 HOURS SUBQ 05/02/20 21:00 06/16/20 20:59 Levetiracetam (Keppra) 700 mg Q12HR GT 05/02/20 21:00 06/01/20 20:59 Lorazepam (Ativan 2mg/ml 1ml) 2 mg Q2H PRN IV For Anxiety 05/02/20 12:45 05/09/20 12:44 Morphine Sulfate (Morphine Sulfate) 4 mg Q4H PRN IVP Severe Pain (Pain Scale 7-10) 05/02/20 12:45 05/09/20 12:44 Norepinephrine Bitartrate 250 ml @ 0 mls/hr Q24H IV 05/02/20 12:48 07/31/20 12:47 Ondansetron HCl (Zofran) 4 mg Q6H PRN IVP Nausea & Vomiting 05/02/20 12:45 06/01/20 12:44 Pantoprazole (Protonix) 40 mg DAILY IVP 05/03/20 09:00 06/02/20 08:59 Polyethylene Glycol (Miralax) 17 gm DAILYPRN PRN GT Constipation 05/02/20 12:45 06/01/20 12:44 Sodium Chloride 1,000 ml @ 100 mls/hr Q10H IVLG 05/02/20 12:40 06/01/20 12:39 Valproic Acid (Depakene) 250 mg DAILY GT 05/03/20 09:00 06/02/20 08:59 Vancomycin HCl (Rx Monitoring Vancomycin) 1 ea DAILY PRN MISC . 05/02/20 13:00 06/01/20 12:59 Vancomycin HCl 500 mg/Dextrose 110 ml @ 110 mls/hr Q12HR@0400,1600 IVPB 05/02/20 16:00 05/07/20 15:59 Assessment/Plan Assessment/Plan: Abx: IV Vancomycin 05/02- Ertapenem 05/02- Amikacin 05/02- CEfepime x1 05/02 Azithromycin x1 05/02 Assessment: Septic Shock Pneumonia- r/o COVID19 Acute hypoxic resp failure- s/p intubation 05/02 -05/02 CXR: There is a moderately consolidating infiltrate in the right lower lobe consistent with pneumonia. rapid COVID neg - previously neg: -02/26 SARS-COV2 pCR neg; 02/28 SARS-COV 2 pcr neg R/o probable bacteremia Probable UTI -u/a wbc 10-15, nit neg, leul +2 ; ucx p FEver (up to 105.3) No leukocytosis TOMAS Recent Sepsis 2ry to ESBL K.pna bacteremia and Pneumonia 02/2020 -Bcx 3/ ESBL K.pna (S Levo, Meropenem, ZOsyn); 03/01 Bcx Neg -sp cx ESBL K.pna -02/27 sp removal PICC Line; cath tip cx Neg muscle weakness and atrophy (not characterized) psychiatric disorder dysphagia s/p GT PR resident ( [facility]) Dementia seizure disorder Plan: -Continue empiric IV Vancomycin #1 and Amikacin#1 -Switch Ertapenem #1 to Meropenem -f/u cx -Monitor CBC/CMP, temperatures -sp cx -COVID19 isolation and testing; send COVID pCR -ICU/ETT/PEG care -aspiration precautions Thank you for consulting [facility]. Will continue to follow along with you. Discussed wit ASAD. Charlene Stkoes M.D. May 02, 2020 14:06
[2020-05-02] MEDS ORDERED: Amikacin 1,000 MG in NS 110 ML IV SCH (15:00)
[2020-05-02] MEDS: Vancomycin 500mg/D5W 110ml IVPB SCH ×2 (15:05)
[2020-05-02] MEDS: Meropenem 1 GM in NS 55 ML IVPB SCH ×2 (15:05→22:12)
[2020-05-02] MEDS: LORazepam Inj 2mg/ml 1ml IV PRN (15:44)
[2020-05-02] MEDS: Acetaminophen 650mg/20.3ml GT PRN (15:44)
--- NOTE | 2020-05-02 17:51 | History & Physical ---
History and Physical History & Physicial Dictated for Int Med-DR Go no. [id number] Obey Cisneros MD May 02, 2020 17:51
--- NOTE | 2020-05-02 20:45 | History and Physical Report ---
DATE OF ADMISSION: 05/02/2020 CHIEF COMPLAINT: The patient is a 59-year-old male who presents with a chief complaint of shortness of breath. HISTORY OF PRESENT ILLNESS: The patient is a resident of [facility]. According to staff at [facility], the patient began acutely short of breath today. The patient was also noted to have decreased oxygen saturations. The patient presented to [facility] Emergency Room. The patient was found to be in acute respiratory distress. A chest x-ray revealed right lower lobe pneumonia. The patient is admitted with respiratory failure and right lower lobe pneumonia. REVIEW OF SYSTEMS: Unable to assess secondary to the patient's mental status. PAST MEDICAL HISTORY: Significant for: 1. History of cerebrovascular accident. 2. Seizure disorder. 3. Functional quadriplegia. 4. Schizophrenia. 5. Dysphagia. PAST SURGICAL HISTORY: Significant for PEG placement. CURRENT MEDICATIONS: 1. Tylenol 650 mg per G-tube q.4h. p.r.n. 2. Vitamin D per G-tube daily. 3. Lovenox 40 mg subcu daily. 4. Keppra 700 mg per G-tube q.12h. 5. Midodrine 10 mg per G-tube q.8h. 6. Nitroglycerin 0.4 mg sublingual p.r.n. 7. Risperdal 1 mg per G-tube twice daily. 8. Depakote 250 mg per G-tube q.12h. ALLERGIES: Diphenhydramine. SOCIAL HISTORY: The patient is single and is a resident of [facility]. The patient denies tobacco or alcohol use. PHYSICAL EXAMINATION: VITAL SIGNS: Temperature 103.1 degrees Fahrenheit, pulse 140, blood pressure 84/48, respirations 26, oxygen saturation 94% on 100% nonrebreather. GENERAL: The patient is a thin-appearing male, in severe respiratory distress. HEENT: Eyes, pupils equal and responsive to light and accommodation. Extraocular movements are intact. NECK: Supple. No lymphadenopathy. CHEST: Decreased breath sounds bilaterally without rales. CARDIOVASCULAR: Tachycardic, regular rhythm. S1 and S2 are normal without murmurs, rubs, or gallops. ABDOMEN: Soft, nontender, and nondistended. Positive bowel sounds. No evidence of hepatosplenomegaly. Currently, no rebound or guarding noted. EXTREMITIES: Negative for clubbing, cyanosis, or edema. RECTAL/GENITAL: Not performed. NEUROLOGICAL: Unable to assess. LABORATORY STUDIES: WBC 7.8, hemoglobin 12.5, hematocrit 37.4, platelets 140,000. Sodium 136, potassium 4.4, chloride 101, CO2 27, BUN 28, creatinine 1.3, glucose 157. Chest x-ray revealed right lower lobe infiltrate, consistent with pneumonia. ASSESSMENT: This is a 59-year-old male. 1. Shortness of breath. 2. Hypoxia. 3. Right lower lobe pneumonia. 4. Acute respiratory failure. 5. History of cerebrovascular accident. 6. Seizure disorder. 7. Functional quadriplegia. 8. Schizophrenia. 9. Dysphagia. TREATMENT: 1. Respiratory failure/pneumonia. A pulmonary consultation has been obtained with Dr. Ana Maria Hansen. The patient was febrile on admission. The patient has been started empirically on vancomycin, amikacin, and meropenem. We will follow recommendations of Pulmonary. 2. Seizure disorder. Continue Keppra, Depakote as above. 3. Functional quadriplegia. 4. Schizophrenia. Continue Risperdal as above. 5. Dysphagia. The patient is status post PEG. Obey Cisneros M.D. DR: BRET JOB#: [id number] CC:
[2020-05-02] MEDS: levETIRAcetam 500mg/5ml Liquid GT SCH (20:54)
[2020-05-02] MEDS: Heparin 5000 units/ml inj SUBQ SCH (20:58)
[2020-05-02] MEDS ORDERED: Ertapenem 1 GM in NS 55 ML IV SCH (21:00)
[2020-05-02] MEDS ORDERED: Vancomycin 1 GM in D5W 275 ML IV SCH (23:45)
[2020-05-03] VITALS (47 sets, daily range): BP systolic 83–129; BP diastolic 52–95
[2020-05-03] MEDS: Acetaminophen 650mg/20.3ml GT PRN ×3 (01:18→23:59)
[2020-05-03] MEDS: Norepinephrine 4mg/NS Premix 250 ML IV SCH ×4 (02:44→18:53)
[2020-05-03] MEDS: Vancomycin 500mg/D5W 110ml IVPB SCH ×4 (04:11→15:18)
[2020-05-03] MEDS: Meropenem 1 GM in NS 55 ML IVPB SCH ×3 (06:27→22:15)
[2020-05-03 06:28] LABS: BASOPHILS % (AUTO) 0.9 % (0.0-2.0); HEMATOCRIT 30.6 % (42.0-52.0); HEMOGLOBIN 10.2 G/DL (14.2-18.0); LYMPHOCYTES % (AUTO) 8.5 % (20.0-45.0); MEAN CORPUSCULAR VOLUME 95 FL (80-99); MONOCYTES % (AUTO) 8.8 % (1.0-10.0); NEUTROPHILS % (AUTO) 81.8 % (45.0-75.0); PLATELET COUNT 105 K/UL (150-450); RED BLOOD COUNT 3.21 M/UL (4.70-6.10); RED CELL DISTRIBUTION WIDTH 12.3 % (11.6-14.8); WHITE BLOOD COUNT 15.1 K/UL (4.8-10.8)
[2020-05-03 07:02] LABS: ALANINE AMINOTRANSFERASE 38 U/L (12-78); ALBUMIN 2.2 G/DL (3.4-5.0); ALBUMIN/GLOBULIN RATIO 0.6 (1.0-2.7); ALKALINE PHOSPHATASE 50 U/L (46-116); ANION GAP 11 mmol/L (5-15); ASPARTATE AMINO TRANSFERASE 35 U/L (15-37); BILIRUBIN,DIRECT 0.1 MG/DL (0.0-0.3); BILIRUBIN,TOTAL 0.6 MG/DL (0.2-1.0); BLOOD UREA NITROGEN 19 mg/dL (7-18); CALCIUM 7.8 MG/DL (8.5-10.1); CARBON DIOXIDE 21 MMOL/L (21-32); CHLORIDE 106 MMOL/L (98-107); CREATININE 1.1 MG/DL (0.55-1.30); POTASSIUM 3.6 MMOL/L (3.5-5.1); SODIUM 138 MMOL/L (136-145)
[2020-05-03] MEDS: Pantoprazole Inj IVP SCH (08:18)
[2020-05-03] MEDS: Valproic Acid 250mg/5ml Liquid GT SCH (08:18)
[2020-05-03] MEDS: levETIRAcetam 500mg/5ml Liquid GT SCH ×2 (08:19→20:52)
[2020-05-03] MEDS: Heparin 5000 units/ml inj SUBQ SCH ×2 (08:20→20:55)
[2020-05-03] MEDS: LORazepam Inj 2mg/ml 1ml IV PRN ×2 (10:24→20:29)
--- NOTE | 2020-05-03 13:34 | Internal Med Progress Note ---
Subjective Date of Service: May 03, 2020 Physician Name Obey Cisneros Attending Physician Marky Go MD Current Medications Medications (Trade) Dose Ordered Sig/Damion Route PRN Reason Start Time Stop Time Status Last Admin Dose Admin Acetaminophen (Tylenol) 650 mg Q4H PRN GT fever 05/02/20 12:45 06/01/20 12:44 05/03/20 08:18 Albuterol/ Ipratropium (Albuterol/ Ipratropium) 3 ml Q4H PRN HHN Shortness of Breath 05/02/20 12:45 05/07/20 12:44 Amikacin Protocol (Amikacin pharmacy to dose) 1 ea DAILY PRN MISC . 05/02/20 13:00 06/01/20 12:59 Amikacin Sulfate 1000 mg/Sodium Chloride 114 ml @ 114 mls/hr Q36H IV 05/02/20 15:00 05/09/20 14:59 05/02/20 15:05 Heparin Sodium (Porcine) (Heparin 5000 units/ml) 5,000 units EVERY 12 HOURS SUBQ 05/02/20 21:00 06/16/20 20:59 05/03/20 08:20 Levetiracetam (Keppra) 700 mg Q12HR GT 05/02/20 21:00 06/01/20 20:59 05/03/20 08:19 Lorazepam (Ativan 2mg/ml 1ml) 2 mg Q2H PRN IV For Anxiety 05/02/20 12:45 05/09/20 12:44 05/03/20 10:24 Meropenem 1 gm/ Sodium Chloride 55 ml @ 110 mls/hr Q8HR IVPB 05/02/20 15:00 05/07/20 14:59 05/03/20 13:22 Morphine Sulfate (Morphine Sulfate) 4 mg Q4H PRN IVP Severe Pain (Pain Scale 7-10) 05/02/20 12:45 05/09/20 12:44 Norepinephrine Bitartrate 250 ml @ 0 mls/hr Q24H IV 05/02/20 12:48 07/31/20 12:47 05/03/20 13:23 Ondansetron HCl (Zofran) 4 mg Q6H PRN IVP Nausea & Vomiting 05/02/20 12:45 06/01/20 12:44 Pantoprazole (Protonix) 40 mg DAILY IVP 05/03/20 09:00 06/02/20 08:59 05/03/20 08:18 Polyethylene Glycol (Miralax) 17 gm DAILYPRN PRN GT Constipation 05/02/20 12:45 06/01/20 12:44 Sodium Chloride 1,000 ml @ 100 mls/hr Q10H IVLG 05/02/20 12:40 06/01/20 12:39 05/03/20 08:17 Valproic Acid (Depakene) 250 mg DAILY GT 05/03/20 09:00 06/02/20 08:59 05/03/20 08:18 Vancomycin HCl (Rx Monitoring Vancomycin) 1 ea DAILY PRN MISC . 05/02/20 13:00 06/01/20 12:59 Vancomycin HCl 500 mg/Dextrose 110 ml @ 110 mls/hr Q12HR@0400,1600 IVPB 05/02/20 16:00 05/07/20 15:59 05/03/20 04:11 Allergies: Coded Allergies: DIPHENHYDRAMINE (Verified Allergy, Unknown, 02/27/20) ROS Limited/Unobtainable: Yes Subjective 59 YO M admitted with respiratory failure. Now pneumonia. Cover for Int Med-Dr Go. ICU Objective Last Vital Signs Date Time Temp Pulse Resp B/P (MAP) Pulse Ox O2 Delivery O2 Flow Rate FiO2 05/03/20 13:23 92/52 05/03/20 10:36 96 16 40 05/03/20 10:00 100 Mechanical Ventilator 05/03/20 08:48 100.0 05/02/20 14:20 15.0 Laboratory Tests Test 05/03/20 03:20 05/03/20 07:32 White Blood Count 15.1 K/UL (4.8-10.8) #H Red Blood Count 3.21 M/UL (4.70-6.10) L Hemoglobin 10.2 G/DL (14.2-18.0) L Hematocrit 30.6 % (42.0-52.0) L Mean Corpuscular Volume 95 FL (80-99) Mean Corpuscular Hemoglobin 31.9 PG (27.0-31.0) H Mean Corpuscular Hemoglobin Concent 33.5 G/DL (32.0-36.0) Red Cell Distribution Width 12.3 % (11.6-14.8) Platelet Count 105 K/UL (150-450) L Mean Platelet Volume 9.4 FL (6.5-10.1) Neutrophils (%) (Auto) 81.8 % (45.0-75.0) H Lymphocytes (%) (Auto) 8.5 % (20.0-45.0) L Monocytes (%) (Auto) 8.8 % (1.0-10.0) Eosinophils (%) (Auto) 0.0 % (0.0-3.0) Basophils (%) (Auto) 0.9 % (0.0-2.0) Sodium Level 138 MMOL/L (136-145) Potassium Level 3.6 MMOL/L (3.5-5.1) Chloride Level 106 MMOL/L (98-107) Carbon Dioxide Level 21 MMOL/L (21-32) Anion Gap 11 mmol/L (5-15) Blood Urea Nitrogen 19 mg/dL (7-18) H Creatinine 1.1 MG/DL (0.55-1.30) Estimat Glomerular Filtration Rate > 60 mL/min (>60) Glucose Level 90 MG/DL (74-106) Hemoglobin A1c 4.7 % (4.3-6.0) Calcium Level 7.8 MG/DL (8.5-10.1) L Total Bilirubin 0.6 MG/DL (0.2-1.0) Direct Bilirubin 0.1 MG/DL (0.0-0.3) Aspartate Amino Transf (AST/SGOT) 35 U/L (15-37) Alanine Aminotransferase (ALT/SGPT) 38 U/L (12-78) Alkaline Phosphatase 50 U/L (46-116) Total Protein 5.6 G/DL (6.4-8.2) L Albumin 2.2 G/DL (3.4-5.0) L Globulin 3.4 g/dL Albumin/Globulin Ratio 0.6 (1.0-2.7) L Random Amikacin Level Pending Valproic Acid (Depakene) Level < 3 MCG/ML (50-100) L Levetiracetam (Keppra) Level Pending Arterial Blood pH 7.393 (7.350-7.450) Arterial Blood Partial Pressure CO2 34.7 mmHg (35.0-45.0) L Arterial Blood Partial Pressure O2 155.8 mmHg (75.0-100.0) H Arterial Blood HCO3 20.7 mmol/L (22.0-26.0) L Arterial Blood Oxygen Saturation 98.2 % (95-100) Arterial Blood Base Excess -3.7 (-2-2) L Nicolas Test Positive Microbiology Date/Time Source Procedure Growth Status 05/02/20 18:00 Sputum Induced Gram Stain - Final Resulted 05/02/20 18:00 Sputum Induced Sputum Culture Pending Resulted 05/02/20 09:25 Nasopharynx SARS-CoV-2 RdRp Gene Assay - Final Complete 05/02/20 09:25 Rectum Received Intake and Output 05/02/20 05/03/20 19:00 07:00 Intake Total 729 ml 1872.50 ml Output Total 690 ml 580 ml Balance 39 ml 1292.50 ml IV Total 679 ml 1872.50 ml Other 50 ml Output Urine Total 690 ml 580 ml # Bowel Movements 3 Objective PHYSICAL EXAMINATION: GENERAL: The patient is a thin-appearing male, in severe respiratory distress. HEENT: Eyes, pupils equal and responsive to light and accommodation. Extraocular movements are intact. NECK: Supple. No lymphadenopathy. CHEST: Mech Vent; Decreased breath sounds bilaterally without rales. CARDIOVASCULAR: Tachycardic, regular rhythm. S1 and S2 are normal without murmurs, rubs, or gallops. ABDOMEN: Soft, nontender, and nondistended. Positive bowel sounds. No evidence of hepatosplenomegaly. Currently, no rebound or guarding noted. EXTREMITIES: Negative for clubbing, cyanosis, or edema. RECTAL/GENITAL: Not performed. NEUROLOGICAL: Unable to assess Assessment/Plan Assessment/Plan ASSESSMENT: This is a 59-year-old male. 1. Shortness of breath. 2. Hypoxia. 3. Right lower lobe pneumonia. 4. Acute respiratory failure. 5. History of cerebrovascular accident. 6. Seizure disorder. 7. Functional quadriplegia. 8. Schizophrenia. 9. Dysphagia. TREATMENT: 1. Respiratory failure/pneumonia. Intubated; A pulmonary consultation has been obtained with Dr. Ana Maria Hansen. The patient was febrile on admission. The patient has been started empirically on vancomycin, amikacin, and meropenem. We will follow recommendations of Pulmonary. 2. Seizure disorder. Continue Ladarius Williamson as above. 3. Functional quadriplegia. 4. Schizophrenia. Continue Risperdal as above. 5. Dysphagia. The patient is status post PEG. Obey Cisneros MD May 03, 2020 13:34
[2020-05-03] MEDS: Amikacin 1,000 MG in NS 110 ML IV SCH (15:18)
--- NOTE | 2020-05-03 19:55 | Infectious Diseases Prog Note ---
Assessment/Plan Assessment: Septic Shock Pneumonia- r/o COVID19 Acute hypoxic resp failure- s/p intubation 05/02 -05/02 CXR: There is a moderately consolidating infiltrate in the right lower lobe consistent with pneumonia. rapid COVID neg - previously neg: -02/26 SARS-COV2 pCR neg; 02/28 SARS-COV 2 pcr neg R/o probable bacteremia Probable UTI -u/a wbc 10-15, nit neg, leul +2 ; ucx p FEver (up to 105.3) leukocytosis TOMAS; improving Recent Sepsis 2ry to ESBL K.pna bacteremia and Pneumonia 02/2020 -Bcx / ESBL K.pna (S Levo, Meropenem, ZOsyn); 03/01 Bcx Neg -sp cx ESBL K.pna -02/27 sp removal PICC Line; cath tip cx Neg muscle weakness and atrophy (not characterized) psychiatric disorder dysphagia s/p GT MT resident ( [facility]) Dementia seizure disorder Plan: -Continue empiric IV Vancomycin #2 and Amikacin#2and Meropenem #2 -05/02 SP CEfepime x1 , Azithromycin x1 -f/u cx -Monitor CBC/CMP, temperatures -sp cx -COVID19 isolation and testing; send COVID pCR -ICU/ETT/PEG care -aspiration precautions Thank you for consulting [facility]. Will continue to follow along with you. Joy troncoso RN. Subjective Allergies: Coded Allergies: DIPHENHYDRAMINE (Verified Allergy, Unknown, 02/27/20) Tm 102 mild leukocytosis levophed at 15 Objective Last 24 Hour Vital Signs Date Time Temp Pulse Resp B/P (MAP) Pulse Ox O2 Delivery O2 Flow Rate FiO2 05/03/20 19:12 106 24 40 05/03/20 18:53 83/48 05/03/20 18:00 105 25 106/59 100 Mechanical Ventilator 40 05/03/20 17:30 122 25 107/59 100 Mechanical Ventilator 40 05/03/20 17:00 111 21 112/67 100 Mechanical Ventilator 40 05/03/20 16:30 105 16 106/67 100 Mechanical Ventilator 40 05/03/20 16:00 105 05/03/20 16:00 Endotracheal Tube 05/03/20 16:00 102.0 109 23 126/95 100 Mechanical Ventilator 40 05/03/20 16:00 80 7/20/20 15:30 103 18 119/72 100 Mechanical Ventilator 40 7/20/20 15:00 99 16 105/65 100 Mechanical Ventilator 40 7/20/20 14:48 94 16 40 7/20/20 14:30 99 16 100/64 100 Mechanical Ventilator 40 7/20/20 14:00 92 7/20/20 14:00 105 19 100/63 100 40 7/20/20 13:30 110 22 129/66 100 40 7/20/20 13:23 92/52 7/20/20 13:00 111 29 92/52 100 40 7/20/20 12:30 94 16 108/69 100 40 7/20/20 12:00 92 16 105/68 100 40 7/20/20 12:00 Endotracheal Tube 7/20/20 12:00 80 7/20/20 12:00 101.0 92 16 105/68 100 40 7/20/20 11:30 94 16 101/65 100 40 7/20/20 11:00 96 16 106/69 100 40 7/20/20 10:36 96 16 40 7/20/20 10:30 99 17 99/63 100 Mechanical Ventilator 40 7/20/20 10:00 110 19 86/54 100 Mechanical Ventilator 40 7/20/20 09:30 115 25 105/65 100 Mechanical Ventilator 40 7/20/20 09:00 123 30 95/79 Mechanical Ventilator 40 7/20/20 08:48 100.0 7/20/20 08:30 109 21 88/54 Mechanical Ventilator 50 7/20/20 08:16 100/58 7/20/20 08:00 Endotracheal Tube 7/20/20 08:00 100.2 116 30 100/58 Mechanical Ventilator 50 7/20/20 08:00 111 7/20/20 08:00 80 7/20/20 07:53 40 7/20/20 07:30 106 23 110/60 Mechanical Ventilator 50 7/20/20 07:02 103 22 50 7/20/20 07:00 107 22 114/68 100 Mechanical Ventilator 50 7/20/20 06:30 102 17 119/65 100 Mechanical Ventilator 50 7/20/20 06:30 105 17 7/20/20 06:00 107 17 120/73 100 Mechanical Ventilator 50 7/20/20 05:30 107 16 104/61 100 Mechanical Ventilator 50 7/20/20 05:00 110 20 120/78 100 Mechanical Ventilator 50 7/20/20 04:30 95 16 106/70 100 Mechanical Ventilator 50 7/20/20 04:00 97 7/20/20 04:00 99.8 95 16 99/65 100 Mechanical Ventilator 80 7/20/20 04:00 Endotracheal Tube 7/20/20 03:30 100 16 89/59 100 Mechanical Ventilator 80 7/20/20 03:00 103 16 92/57 100 Mechanical Ventilator 80 7/20/20 03:00 103 16 50 7/20/20 02:44 90/56 7/20/20 02:30 108 17 90/56 100 Mechanical Ventilator 80 7/20/20 02:00 109 16 83/58 100 Mechanical Ventilator 80 7/20/20 01:30 115 16 111/65 100 Mechanical Ventilator 80 7/20/20 01:00 102.0 116 16 88/54 100 Mechanical Ventilator 80 7/20/20 00:30 120 16 101/61 100 Mechanical Ventilator 80 7/20/20 00:00 100.4 116 16 103/64 100 Mechanical Ventilator 80 7/20/20 00:00 118 7/20/20 00:00 Endotracheal Tube 719/20 23:45 111 17 60 7/19/20 23:30 116 16 86/52 100 Mechanical Ventilator 80 7/19/20 23:00 119 16 91/55 100 Mechanical Ventilator 80 7/19/20 22:30 121 16 97/67 100 Mechanical Ventilator 80 7/19/20 22:00 120 18 93/65 100 Mechanical Ventilator 80 7/19/20 21:30 120 17 84/54 100 Mechanical Ventilator 80 7/19/20 21:00 121 18 87/56 100 Mechanical Ventilator 80 7/19/20 20:30 126 24 93/63 100 Mechanical Ventilator 80 7/19/20 20:23 75/56 7/19/20 20:00 121 7/19/20 20:00 Endotracheal Tube 05/02/20 20:00 101.7 124 20 68/55 100 Mechanical Ventilator 80 Height (Feet): 5 Height (Inches): 8.00 Weight (Pounds): 134 Microbiology Date/Time Source Procedure Growth Status 05/02/20 18:00 Sputum Induced Gram Stain - Final Resulted 05/02/20 18:00 Sputum Induced Sputum Culture Pending Resulted 05/02/20 09:25 Nasopharynx SARS-CoV-2 RdRp Gene Assay - Final Complete 05/02/20 09:25 Rectum Received Laboratory Tests Test 05/03/20 03:20 05/03/20 07:32 White Blood Count 15.1 K/UL (4.8-10.8) #H Red Blood Count 3.21 M/UL (4.70-6.10) L Hemoglobin 10.2 G/DL (14.2-18.0) L Hematocrit 30.6 % (42.0-52.0) L Mean Corpuscular Volume 95 FL (80-99) Mean Corpuscular Hemoglobin 31.9 PG (27.0-31.0) H Mean Corpuscular Hemoglobin Concent 33.5 G/DL (32.0-36.0) Red Cell Distribution Width 12.3 % (11.6-14.8) Platelet Count 105 K/UL (150-450) L Mean Platelet Volume 9.4 FL (6.5-10.1) Neutrophils (%) (Auto) 81.8 % (45.0-75.0) H Lymphocytes (%) (Auto) 8.5 % (20.0-45.0) L Monocytes (%) (Auto) 8.8 % (1.0-10.0) Eosinophils (%) (Auto) 0.0 % (0.0-3.0) Basophils (%) (Auto) 0.9 % (0.0-2.0) Sodium Level 138 MMOL/L (136-145) Potassium Level 3.6 MMOL/L (3.5-5.1) Chloride Level 106 MMOL/L (98-107) Carbon Dioxide Level 21 MMOL/L (21-32) Anion Gap 11 mmol/L (5-15) Blood Urea Nitrogen 19 mg/dL (7-18) H Creatinine 1.1 MG/DL (0.55-1.30) Estimat Glomerular Filtration Rate > 60 mL/min (>60) Glucose Level 90 MG/DL (74-106) Hemoglobin A1c 4.7 % (4.3-6.0) Calcium Level 7.8 MG/DL (8.5-10.1) L Total Bilirubin 0.6 MG/DL (0.2-1.0) Direct Bilirubin 0.1 MG/DL (0.0-0.3) Aspartate Amino Transf (AST/SGOT) 35 U/L (15-37) Alanine Aminotransferase (ALT/SGPT) 38 U/L (12-78) Alkaline Phosphatase 50 U/L (46-116) Total Protein 5.6 G/DL (6.4-8.2) L Albumin 2.2 G/DL (3.4-5.0) L Globulin 3.4 g/dL Albumin/Globulin Ratio 0.6 (1.0-2.7) L Random Amikacin Level 6.7 MG/L Valproic Acid (Depakene) Level < 3 MCG/ML (50-100) L Levetiracetam (Keppra) Level Pending Arterial Blood pH 7.393 (7.350-7.450) Arterial Blood Partial Pressure CO2 34.7 mmHg (35.0-45.0) L Arterial Blood Partial Pressure O2 155.8 mmHg (75.0-100.0) H Arterial Blood HCO3 20.7 mmol/L (22.0-26.0) L Arterial Blood Oxygen Saturation 98.2 % (95-100) Arterial Blood Base Excess -3.7 (-2-2) L Nicolas Test Positive Current Medications Medications (Trade) Dose Ordered Sig/Damion Route PRN Reason Start Time Stop Time Status Last Admin Dose Admin Acetaminophen (Tylenol) 650 mg Q4H PRN GT fever 05/02/20 12:45 06/01/20 12:44 05/03/20 08:18 Albuterol/ Ipratropium (Albuterol/ Ipratropium) 3 ml Q4H PRN HHN Shortness of Breath 05/02/20 12:45 05/07/20 12:44 Amikacin Protocol (Amikacin pharmacy to dose) 1 ea DAILY PRN MISC . 05/02/20 13:00 06/01/20 12:59 Amikacin Sulfate 1000 mg/Sodium Chloride 114 ml @ 114 mls/hr Q24H IV 05/03/20 15:00 05/10/20 14:59 05/03/20 15:18 Chlorhexidine Gluconate (Marci-Hex 2%) 1 applic DAILY@2000 TOPIC 05/03/20 20:00 08/01/20 19:59 Heparin Sodium (Porcine) (Heparin 5000 units/ml) 5,000 units EVERY 12 HOURS SUBQ 7/19/20 21:00 06/16/20 20:59 05/03/20 08:20 Levetiracetam (Keppra) 700 mg Q12HR GT 05/02/20 21:00 06/01/20 20:59 05/03/20 08:19 Lorazepam (Ativan 2mg/ml 1ml) 2 mg Q2H PRN IV For Anxiety 05/02/20 12:45 05/09/20 12:44 05/03/20 10:24 Meropenem 1 gm/ Sodium Chloride 55 ml @ 110 mls/hr Q8HR IVPB 05/02/20 15:00 05/07/20 14:59 05/03/20 13:22 Morphine Sulfate (Morphine Sulfate) 4 mg Q4H PRN IVP Severe Pain (Pain Scale 7-10) 05/02/20 12:45 05/09/20 12:44 Norepinephrine Bitartrate 250 ml @ 0 mls/hr Q24H IV 05/02/20 12:48 07/31/20 12:47 05/03/20 18:53 Ondansetron HCl (Zofran) 4 mg Q6H PRN IVP Nausea & Vomiting 05/02/20 12:45 06/01/20 12:44 Pantoprazole (Protonix) 40 mg DAILY IVP 05/03/20 09:00 06/02/20 08:59 05/03/20 08:18 Polyethylene Glycol (Miralax) 17 gm DAILYPRN PRN GT Constipation 05/02/20 12:45 06/01/20 12:44 Sodium Chloride 1,000 ml @ 100 mls/hr Q10H IVLG 05/02/20 12:40 06/01/20 12:39 05/03/20 08:17 Valproic Acid (Depakene) 250 mg DAILY GT 05/03/20 09:00 06/02/20 08:59 05/03/20 08:18 Vancomycin HCl (Rx Monitoring Vancomycin) 1 ea DAILY PRN MISC . 05/02/20 13:00 06/01/20 12:59 Vancomycin HCl 500 mg/Dextrose 110 ml @ 110 mls/hr Q12HR@0400,1600 IVPB 05/02/20 16:00 05/07/20 15:59 05/03/20 15:18 Charlene Stokes M.D. May 03, 2020 19:55
[2020-05-03] MEDS: Dyna-Hex 2% Top Sol 2oz TOPIC SCH (20:29)
--- NOTE | 2020-05-03 22:09 | Diagnostic Imaging Report ---
EXAM: XR Chest, 1 View CLINICAL HISTORY: S/P INTUB TECHNIQUE: Frontal view of the chest. COMPARISON: Chest x-ray dated 05/02/2020 FINDINGS: Lungs: Diffuse airspace opacities with consolidation within the right lower lung. Pleural space: Unremarkable. Heart: Unremarkable. Mediastinum: Unremarkable. Bones/joints: Unremarkable. Tubes, lines and devices: Endotracheal tube terminates 1 cm above the westley. Right IJ central venous catheter with tip at the cavoatrial junction. IMPRESSION: 1. Endotracheal tube terminates 1 cm above the westley. 2. Right IJ central venous catheter with tip at the cavoatrial junction. 3. Diffuse airspace opacities with consolidation within the right lower lung.
[2020-05-03] MEDS: fentaNYL 2500mcg/NS 250ml 250 ML IV SCH (22:16)
--- NOTE | 2020-05-03 22:17 | Emergency Room Report ---
Physical Exam Vital Signs Date Time Temp Pulse Resp B/P (MAP) Pulse Ox O2 Delivery O2 Flow Rate FiO2 05/02/20 08:59 103.1 170 26 84/40 (55) 94 Non-Rebreather 15.0 05/02/20 10:25 100 Medical Decision Making Diagnostic Impression: Primary Impression: Acute respiratory failure Additional Impressions: Muscle wasting and atrophy, not elsewhere classified, multiple sites COPD (chronic obstructive pulmonary disease) Nosocomial pneumonia Seizure disorder History of CVA (cerebrovascular accident) ER Course Call to ICU for exchange of endotracheal tube. Patient intubated for respiratory failure. Rapid test thus far for COVID-19 is been negative. Respiratory noted low tidal volumes throughout the day concern for cuff leak. Patient was saturating 100% on my arrival though could not keep cuff inflated and suspected it was damaged. Patient was sedated with 20 mg IV etomidate and at 7.5 endotracheal tube was replaced for another 7.5 endotracheal tube over a bougie. No complications. Performed on first attempt. Confirmed with visualization under glide scope and chest x-ray. X-ray shows a right lower lobe infiltrate but endotracheal tube in appropriate position above the westley. Patient tolerated procedure well. Remainder of care per ICU team. Admitting team notified. Chest X-Ray Diagnostic Results Chest X-Ray Diagnostic Results : Chest X-Ray Ordered: Yes # of Views/Limited/Complete: 1 View Indication: Other - Endotracheal tube exchange Interpretation: other - ET tube in appropriate position above the westley. Right lower lobe infiltrate. Impression: Other - Successful endotracheal tube exchange with tube tip above the westley. Right lower lobe infiltrate Electronically Signed by: Electronically signed by Dr. Farhat Dillon Last Vital Signs Date Time Temp Pulse Resp B/P (MAP) Pulse Ox O2 Delivery O2 Flow Rate FiO2 05/03/20 19:12 106 24 40 05/03/20 18:53 83/48 05/03/20 18:00 100 Mechanical Ventilator 05/03/20 16:00 102.0 05/02/20 14:20 15.0 Disposition: ADMITTED INPATIENT Condition: Critical Referrals: NON PHYSICIAN (PCP) Procedures Intubation Intubation : Consent: Emergent Intubation Method: orotracheal Tube Size (cm): 7.5 Medications: Etomidate Breath Sounds after Intubation: equal Intubation Complications: no complications Post Intubation Xray: Yes Attempts: One Patient Tolerated: Well Complications: None Farhat Dillon MD May 03, 2020 22:17
[2020-05-04] VITALS (45 sets, daily range): BP systolic 72–138; BP diastolic 43–83
[2020-05-04] MEDS: Norepinephrine 4mg/NS Premix 250 ML IV SCH ×3 (00:29→17:14)
[2020-05-04 03:30] LABS: HEMATOCRIT 26.4 % (42.0-52.0); MEAN CORPUSCULAR VOLUME 94 FL (80-99); PLATELET COUNT 96 K/UL (150-450); RED BLOOD COUNT 2.81 M/UL (4.70-6.10); RED CELL DISTRIBUTION WIDTH 11.9 % (11.6-14.8); WHITE BLOOD COUNT 13.1 K/UL (4.8-10.8)
[2020-05-04 03:43] LABS: ALANINE AMINOTRANSFERASE 33 U/L (12-78); ALBUMIN 1.9 G/DL (3.4-5.0); ALBUMIN/GLOBULIN RATIO 0.6 (1.0-2.7); ALKALINE PHOSPHATASE 49 U/L (46-116); ANION GAP 7 mmol/L (5-15); ASPARTATE AMINO TRANSFERASE 30 U/L (15-37); BILIRUBIN,TOTAL 0.6 MG/DL (0.2-1.0); BLOOD UREA NITROGEN 11 mg/dL (7-18); CALCIUM 7.8 MG/DL (8.5-10.1); CARBON DIOXIDE 23 MMOL/L (21-32); CHLORIDE 110 MMOL/L (98-107); CREATININE 0.9 MG/DL (0.55-1.30); PHOSPHORUS 1.2 MG/DL (2.5-4.9); POTASSIUM 3.1 MMOL/L (3.5-5.1); SODIUM 140 MMOL/L (136-145)
[2020-05-04] MEDS ORDERED: Vancomycin 500mg/D5W 110ml IVPB SCH ×2 (04:00)
[2020-05-04] MEDS: Meropenem 1 GM in NS 55 ML IVPB SCH ×3 (05:58→21:36)
[2020-05-04] MEDS: Acetaminophen 650mg/20.3ml GT PRN ×3 (06:23→21:13)
[2020-05-04] MEDS: Heparin 5000 units/ml inj SUBQ SCH ×2 (09:00→21:00)
[2020-05-04] MEDS: Valproic Acid 250mg/5ml Liquid GT SCH (09:03)
[2020-05-04] MEDS: levETIRAcetam 500mg/5ml Liquid GT SCH ×2 (09:04→21:12)
[2020-05-04] MEDS: Pantoprazole Inj IVP SCH ×2 (09:04→21:12)
--- NOTE | 2020-05-04 09:16 | Diagnostic Imaging Report ---
Indication: Dyspnea Technique: One view of the chest Comparison: 10 hours earlier Findings: Is stable satisfactory positions of endotracheal tube and right jugular central venous catheter. Dense consolidation of the right mid and lower lung, right pleural effusion are unchanged. Left lung and pleural space remain clear. Impression: Unchanged, over 10 hours, findings as above.
--- NOTE | 2020-05-04 10:54 | Pulmonolgy Critical Care Note ---
Critical Care - Asmt/Plan Problems: (1) Acute respiratory failure (2) Sepsis (3) Nosocomial pneumonia (4) Seizure disorder (5) Dehydration (6) COPD (chronic obstructive pulmonary disease) (7) [facility] resident (8) History of CVA (cerebrovascular accident) Respiratory: monitor respiratory rate, adjust FIO2, CXR, ABG Cardiac: continue to monitor HR/BP Renal: F/U I&O, keep IV fluid, check electrolytes Infectious Disease: check cultures, continue antibiotics, add antibiotics Gastrointestinal: hold feedings Endocrine: monitor blood sugar Hematologic: monitor H/H, transfuse if hgb<8.5 Neurologic: PRN Ativan Affect: PRN ativan Prophylaxis: Protonix 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, 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, 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, 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 - Objective Last 24 Hour Vital Signs Date Time Temp Pulse Resp B/P (MAP) Pulse Ox O2 Delivery O2 Flow Rate FiO2 05/04/20 10:00 108 21 116/71 100 Mechanical Ventilator 40 05/04/20 09:44 84/55 05/04/20 09:30 88 16 84/55 100 Mechanical Ventilator 40 05/04/20 09:00 93 16 78/43 100 Mechanical Ventilator 40 05/04/20 08:30 107 16 96/54 100 Mechanical Ventilator 40 05/04/20 08:00 102 05/04/20 08:00 102 16 92/54 100 Mechanical Ventilator 40 05/04/20 08:00 Endotracheal Tube 05/04/20 07:56 30 05/04/20 07:30 101 16 40 05/04/20 07:30 100 05/04/20 07:30 100 16 108/61 100 Mechanical Ventilator 40 05/04/20 07:00 100.1 105 17 111/64 100 Mechanical Ventilator 40 05/04/20 06:53 100.8 05/04/20 06:30 103 18 05/04/20 06:00 101 16 116/74 100 Mechanical Ventilator 40 05/04/20 06:00 20 112/60 Mechanical Ventilator 40 05/04/20 05:30 102 16 115/73 100 Mechanical Ventilator 40 05/04/20 05:00 96 16 106/69 100 Mechanical Ventilator 40 05/04/20 05:00 16 115/73 Mechanical Ventilator 40 05/04/20 04:30 99 17 96/65 100 Mechanical Ventilator 40 7/21/20 04:00 Endotracheal Tube 05/04/20 04:00 101 7//20 04:00 16 96/65 Mechanical Ventilator 40 7 04:00 99.8 106 20 108/67 100 Mechanical Ventilator 40 7 03:32 118 23 40 7/20 03:30 117 22 118/78 100 Mechanical Ventilator 40 7 03:00 24 121/83 Mechanical Ventilator 40 7 03:00 108 21 121/83 100 Mechanical Ventilator 40 7 02:30 97 16 119/75 100 Mechanical Ventilator 40 720 02:00 95 16 113/70 100 Mechanical Ventilator 40 720 02:00 16 119/75 Mechanical Ventilator 40 7 01:30 100 16 100/63 100 Mechanical Ventilator 40 7 01:00 108 16 94/50 100 Mechanical Ventilator 40 720 01:00 16 119/46 Mechanical Ventilator 40 05/04/20 00:30 103 16 105/60 100 Mechanical Ventilator 40 05/04/20 00:30 103 16 105/60 100 7/20 00:29 106/60 7/20 00:00 101 17 106/69 100 7/21/20 00:00 102.0 101 17 106/69 100 Mechanical Ventilator 40 05/04/20 00:00 Endotracheal Tube 05/04/20 00:00 104 05/04/20 00:00 16 105/60 Mechanical Ventilator 40 7 23:30 106 20 115/73 100 Mechanical Ventilator 40 7/20 23:26 103 18 40 720/20 23:00 100 16 110/69 100 Mechanical Ventilator 40 720/20 23:00 16 115/73 Mechanical Ventilator 40 720/20 22:30 100 16 111/71 100 Mechanical Ventilator 40 7/20/20 22:30 20 110/71 Mechanical Ventilator 100 7/20/20 22:16 20 112/67 Mechanical Ventilator 40 7/20/20 22:00 102 18 112/67 100 Mechanical Ventilator 40 7/20/20 21:30 96 16 96/65 100 Mechanical Ventilator 40 7/20/20 21:00 104 27 127/91 100 Mechanical Ventilator 40 7/20/20 20:30 103 32 110/79 100 Mechanical Ventilator 40 7/20/20 20:00 Endotracheal Tube 7/20/20 20:00 99.4 100 19 122/70 100 Mechanical Ventilator 40 7/20/20 19:30 98 17 114/72 100 7/20/20 19:12 106 24 40 7/20/20 19:00 100 27 108/64 100 7/20/20 18:53 83/48 7/20/20 18:00 105 25 106/59 100 Mechanical Ventilator 40 7/20/20 17:30 122 25 107/59 100 Mechanical Ventilator 40 7/20/20 17:00 111 21 112/67 100 Mechanical Ventilator 40 7/20/20 16:30 105 16 106/67 100 Mechanical Ventilator 40 7/20/20 16:00 105 7/20/20 16:00 Endotracheal Tube 720 16:00 102.0 109 23 126/95 100 Mechanical Ventilator 40 7/20/20 16:00 80 7/20/20 15:30 103 18 119/72 100 Mechanical Ventilator 40 7/20/20 15:00 99 16 105/65 100 Mechanical Ventilator 40 7/20/20 14:48 94 16 40 7/20/20 14:30 99 16 100/64 100 Mechanical Ventilator 40 7/20/20 14:00 92 7/20/20 14:00 105 19 100/63 100 40 7/20/20 13:30 110 22 129/66 100 40 7/20/20 13:23 92/52 7/20/20 13:00 111 29 92/52 100 40 7/20/20 12:30 94 16 108/69 100 40 7/20/20 12:00 92 16 105/68 100 40 7/20/20 12:00 Endotracheal Tube 720 12:00 80 7/20/20 12:00 101.0 92 16 105/68 100 40 7/20/20 11:30 94 16 101/65 100 40 7/20/20 11:00 96 16 106/69 100 40 Status: obtunded Condition: critical HEENT: atraumatic, normocephalic Lungs: rales, rhonchi Heart: HR/BP stable Abdomen: soft, active bowel sounds Extremities: no C/C/E, edema Micro: Microbiology Date/Time Source Procedure Growth Status 05/02/20 09:25 Blood Blood Culture - Preliminary NO GROWTH AFTER 24 HOURS Resulted 05/02/20 09:25 Blood Blood Culture - Preliminary NO GROWTH AFTER 24 HOURS Resulted 05/02/20 18:00 Nasopharynx Coronavirus COVID-19 PCR (TUNG) - Final Complete 05/02/20 18:00 Sputum Induced Gram Stain - Final Resulted 05/02/20 18:00 Sputum Culture - Preliminary Gram Negative Bacillus 1 Gram Negative Bacillus 2 Resulted 05/02/20 09:25 Nasopharynx SARS-CoV-2 RdRp Gene Assay - Final Complete 05/02/20 10:00 Indwelling Cath Urine Culture - Preliminary Gram Negative Bacillus 1 Resulted 05/02/20 09:25 Rectum Received Critical Care - Subjective Interval Events: late note for 05/03 Condition: critical, improving FI02: 40 Vent Support Breath Rate: 16 Vent Support Mode: AC Vent Tidal Volume: 600 Sputum Amount: Large PEEP: 0.0 PIP: 20 I&O: Intake and Output 05/03/20 05/04/20 19:00 07:00 Intake Total 2398.41 ml 1670.75 ml Output Total 750 ml 670 ml Balance 1648.41 ml 1000.75 ml Intake Free Water 180 ml IV Total 2218.41 ml 1670.75 ml Output Urine Total 750 ml 670 ml # Bowel Movements 2 9 ET-Tube: 7.5 ET Position: 24 Ana Maria Hansen MD May 04, 2020 10:54
--- NOTE | 2020-05-04 10:55 | Pulmonolgy Critical Care Note ---
Critical Care - Asmt/Plan Problems: (1) Acute respiratory failure (2) Sepsis (3) Nosocomial pneumonia (4) Seizure disorder (5) Dehydration (6) COPD (chronic obstructive pulmonary disease) (7) [facility] resident (8) History of CVA (cerebrovascular accident) Respiratory: monitor respiratory rate, adjust FIO2, CXR Cardiac: continue pressors, continue to monitor HR/BP Renal: F/U I&O, keep IV fluid Infectious Disease: check cultures, continue antibiotics Gastrointestinal: hold feedings, abdominal imaging - kub Endocrine: monitor blood sugar Hematologic: monitor H/H, transfuse if hgb<8.5 Neurologic: PRN Ativan, PRN Morphine, keep patient comfortable Affect: PRN ativan Time Spent (Minutes): 30 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, 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, 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, consultants, 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 - Objective Last 24 Hour Vital Signs Date Time Temp Pulse Resp B/P (MAP) Pulse Ox O2 Delivery O2 Flow Rate FiO2 05/04/20 10:00 108 21 116/71 100 Mechanical Ventilator 40 05/04/20 09:44 84/55 05/04/20 09:30 88 16 84/55 100 Mechanical Ventilator 40 05/04/20 09:00 93 16 78/43 100 Mechanical Ventilator 40 05/04/20 08:30 107 16 96/54 100 Mechanical Ventilator 40 05/04/20 08:00 102 05/04/20 08:00 102 16 92/54 100 Mechanical Ventilator 40 05/04/20 08:00 Endotracheal Tube 05/04/20 07:56 30 05/04/20 07:30 101 16 40 05/04/20 07:30 100 05/04/20 07:30 100 16 108/61 100 Mechanical Ventilator 40 05/04/20 07:00 100.1 105 17 111/64 100 Mechanical Ventilator 40 05/04/20 06:53 100.8 05/04/20 06:30 103 18 05/04/20 06:00 101 16 116/74 100 Mechanical Ventilator 40 05/04/20 06:00 20 112/60 Mechanical Ventilator 40 05/04/20 05:30 102 16 115/73 100 Mechanical Ventilator 40 05/04/20 05:00 96 16 106/69 100 Mechanical Ventilator 40 05/04/20 05:00 16 115/73 Mechanical Ventilator 40 05/04/20 04:30 99 17 96/65 100 Mechanical Ventilator 40 7 04:00 Endotracheal Tube 05/04/20 04:00 101 05/04/20 04:00 16 96/65 Mechanical Ventilator 40 7 04:00 99.8 106 20 108/67 100 Mechanical Ventilator 40 7/20 03:32 118 23 40 7/20 03:30 117 22 118/78 100 Mechanical Ventilator 40 7 03:00 24 121/83 Mechanical Ventilator 40 7 03:00 108 21 121/83 100 Mechanical Ventilator 40 720 02:30 97 16 119/75 100 Mechanical Ventilator 40 7 02:00 95 16 113/70 100 Mechanical Ventilator 40 7 02:00 16 119/75 Mechanical Ventilator 40 7 01:30 100 16 100/63 100 Mechanical Ventilator 40 7 01:00 108 16 94/50 100 Mechanical Ventilator 40 7 01:00 16 119/46 Mechanical Ventilator 40 05/04/20 00:30 103 16 105/60 100 Mechanical Ventilator 40 05/04/20 00:30 103 16 105/60 100 7/20 00:29 106/60 7/20 00:00 101 17 106/69 100 05/04/ 00:00 102.0 101 17 106/69 100 Mechanical Ventilator 40 05/04/20 00:00 Endotracheal Tube 05/04/20 00:00 104 7 00:00 16 105/60 Mechanical Ventilator 40 7/20 23:30 106 20 115/73 100 Mechanical Ventilator 40 7/20 23:26 103 18 40 720/20 23:00 100 16 110/69 100 Mechanical Ventilator 40 7/20/20 23:00 16 115/73 Mechanical Ventilator 40 7/20/20 22:30 100 16 111/71 100 Mechanical Ventilator 40 7/20/20 22:30 20 110/71 Mechanical Ventilator 100 7/20/20 22:16 20 112/67 Mechanical Ventilator 40 7/20/20 22:00 102 18 112/67 100 Mechanical Ventilator 40 7/20/20 21:30 96 16 96/65 100 Mechanical Ventilator 40 7/20/20 21:00 104 27 127/91 100 Mechanical Ventilator 40 7/20/20 20:30 103 32 110/79 100 Mechanical Ventilator 40 7/20/20 20:00 Endotracheal Tube 720/20 20:00 99.4 100 19 122/70 100 Mechanical Ventilator 40 7/20/20 19:30 98 17 114/72 100 7/20/20 19:12 106 24 40 7/20/20 19:00 100 27 108/64 100 7/20/20 18:53 83/48 7/20/20 18:00 105 25 106/59 100 Mechanical Ventilator 40 7/20/20 17:30 122 25 107/59 100 Mechanical Ventilator 40 7/20/20 17:00 111 21 112/67 100 Mechanical Ventilator 40 7/20/20 16:30 105 16 106/67 100 Mechanical Ventilator 40 7/20/20 16:00 105 720/20 16:00 Endotracheal Tube 20 16:00 102.0 109 23 126/95 100 Mechanical Ventilator 40 7/20/20 16:00 80 7/20/20 15:30 103 18 119/72 100 Mechanical Ventilator 40 720/20 15:00 99 16 105/65 100 Mechanical Ventilator 40 720/20 14:48 94 16 40 7/20/20 14:30 99 16 100/64 100 Mechanical Ventilator 40 7/20/20 14:00 92 720/20 14:00 105 19 100/63 100 40 7/20/20 13:30 110 22 129/66 100 40 7/20/20 13:23 92/52 7/20/20 13:00 111 29 92/52 100 40 7/20/20 12:30 94 16 108/69 100 40 720/20 12:00 92 16 105/68 100 40 720/20 12:00 Endotracheal Tube 20 12:00 80 7/20/20 12:00 101.0 92 16 105/68 100 40 7/20/20 11:30 94 16 101/65 100 40 7/20/20 11:00 96 16 106/69 100 40 Status: awake, sedated, somnolent HEENT: atraumatic, normocephalic Lungs: clear Heart: HR/BP stable Abdomen: soft, non-tender, feeding tube Micro: Microbiology Date/Time Source Procedure Growth Status 05/02/20 09:25 Blood Blood Culture - Preliminary NO GROWTH AFTER 24 HOURS Resulted 05/02/20 09:25 Blood Blood Culture - Preliminary NO GROWTH AFTER 24 HOURS Resulted 05/02/20 18:00 Nasopharynx Coronavirus COVID-19 PCR (TUNG) - Final Complete 05/02/20 18:00 Sputum Induced Gram Stain - Final Resulted 05/02/20 18:00 Sputum Culture - Preliminary Gram Negative Bacillus 1 Gram Negative Bacillus 2 Resulted 05/02/20 09:25 Nasopharynx SARS-CoV-2 RdRp Gene Assay - Final Complete 05/02/20 10:00 Indwelling Cath Urine Culture - Preliminary Gram Negative Bacillus 1 Resulted 05/02/20 09:25 Rectum Received Critical Care - Subjective Interval Events: abdomen distended. ET tube was changed yesterday by ER physician FI02: 40 Vent Support Breath Rate: 16 Vent Support Mode: AC Vent Tidal Volume: 600 Sputum Amount: Large PEEP: 0.0 PIP: 20 I&O: Intake and Output 05/03/20 05/04/20 19:00 07:00 Intake Total 2398.41 ml 1670.75 ml Output Total 750 ml 670 ml Balance 1648.41 ml 1000.75 ml Intake Free Water 180 ml IV Total 2218.41 ml 1670.75 ml Output Urine Total 750 ml 670 ml # Bowel Movements 2 9 ET-Tube: 7.5 ET Position: 24 Labs: Laboratory Tests Test 05/04/20 03:00 05/04/20 07:42 White Blood Count 13.1 K/UL (4.8-10.8) H Red Blood Count 2.81 M/UL (4.70-6.10) L Hemoglobin 9.0 G/DL (14.2-18.0) L Hematocrit 26.4 % (42.0-52.0) L Mean Corpuscular Volume 94 FL (80-99) Mean Corpuscular Hemoglobin 32.0 PG (27.0-31.0) H Mean Corpuscular Hemoglobin Concent 34.0 G/DL (32.0-36.0) Red Cell Distribution Width 11.9 % (11.6-14.8) Platelet Count 96 K/UL (150-450) L Mean Platelet Volume 9.3 FL (6.5-10.1) Neutrophils (%) (Auto) % (45.0-75.0) Lymphocytes (%) (Auto) % (20.0-45.0) Monocytes (%) (Auto) % (1.0-10.0) Eosinophils (%) (Auto) % (0.0-3.0) Basophils (%) (Auto) % (0.0-2.0) Sodium Level 140 MMOL/L (136-145) Potassium Level 3.1 MMOL/L (3.5-5.1) L Chloride Level 110 MMOL/L (98-107) H Carbon Dioxide Level 23 MMOL/L (21-32) Anion Gap 7 mmol/L (5-15) Blood Urea Nitrogen 11 mg/dL (7-18) Creatinine 0.9 MG/DL (0.55-1.30) Estimat Glomerular Filtration Rate > 60 mL/min (>60) Glucose Level 101 MG/DL (74-106) Calcium Level 7.8 MG/DL (8.5-10.1) L Phosphorus Level 1.2 MG/DL (2.5-4.9) L Magnesium Level 1.6 MG/DL (1.8-2.4) L Total Bilirubin 0.6 MG/DL (0.2-1.0) Aspartate Amino Transf (AST/SGOT) 30 U/L (15-37) Alanine Aminotransferase (ALT/SGPT) 33 U/L (12-78) Alkaline Phosphatase 49 U/L (46-116) Total Protein 5.2 G/DL (6.4-8.2) L Albumin 1.9 G/DL (3.4-5.0) L Globulin 3.3 g/dL Albumin/Globulin Ratio 0.6 (1.0-2.7) L Vancomycin Level Trough 6.8 ug/mL (5.0-12.0) Arterial Blood pH 7.404 (7.350-7.450) Arterial Blood Partial Pressure CO2 33.9 mmHg (35.0-45.0) L Arterial Blood Partial Pressure O2 407.3 mmHg (75.0-100.0) H Arterial Blood HCO3 20.7 mmol/L (22.0-26.0) L Arterial Blood Oxygen Saturation 99.3 % (95-100) Arterial Blood Base Excess -3.5 (-2-2) L Nicolas Test Positive Ana Maria Hansen MD May 04, 2020 10:55
[2020-05-04] MEDS ORDERED: Sodium Phosphate 30 MM in NS 275 ML IV ONE (13:00)
--- NOTE | 2020-05-04 13:10 | Consultation ---
Consult Note Consult Note I am asked to evaluate the patient Dr. Go for fluid and electrolyte management Day 2 of hospitalization Patient seen in ICU, discussed with RN, lab reviewed History of present illness: 59-year-old male with past medical history of dementia and respiratory failure presents by ambulance for shortness of breath. Patient was found coughing uncontrollably and was noted to have desaturations prior to arrival. History is limited secondary to patient's altered mental status. In emergency room placed on 15 L facemask by EMS. The patient's symptoms were gradual onset, severity was moderate, duration since 1 day. 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 GENERAL: The patient is a thin-appearing male, intubated on ventilator HEENT: Eyes, pupils equal and responsive to light NECK: Supple. No lymphadenopathy. CHEST: Patient intubated and on ventilator. Decreased breath sounds bilaterally without rales. CARDIOVASCULAR: Tachycardic, regular rhythm. S1 and S2 are normal without murmurs, rubs, or gallops. ABDOMEN: Soft, nontender, and nondistended. Positive bowel sounds. No evidence of hepatosplenomegaly. Currently, no rebound or guarding noted. EXTREMITIES: Negative for clubbing, cyanosis, or edema. RECTAL/GENITAL: Not performed. NEUROLOGICAL: Unable to assess. . Assessment/Plan Severe electrolyte abnormalities Low magnesium, low phosphorus, low potassium, Other active conditions: (1) Acute respiratory failure (2) Sepsis (3) Nosocomial pneumonia (4) Seizure disorder (5) Dehydration (6) COPD (chronic obstructive pulmonary disease) (7) [facility] (8) History of CVA (cerebrovascular accident) Mag , phosphorus and potassium supplement ordered Monitor electrolytes Continue per consultants Kin Bustillo MD May 04, 2020 13:10
--- NOTE | 2020-05-04 14:09 | Infectious Diseases Prog Note ---
Assessment/Plan Assessment: Septic Shock Pneumonia- COVID 19 neg x2 (on same day) Acute hypoxic resp failure- s/p intubation 05/02 -05/04 CXR: Dense consolidation of the right mid and lower lung, right pleural effusion are unchanged. Left lung and pleural space remain clear. -05/02 Sp cx PsA (pham S), E. aerogenes (R Ancef; otherwise S), S. aureus ( sensi p) -05/02 CXR: There is a moderately consolidating infiltrate in the right lower lobe consistent with pneumonia. rapid COVID neg, COVI PCR neg - previously neg: -02/26 SARS-COV2 pCR neg; 02/28 SARS-COV 2 pcr neg R/o probable bacteremia -Bc xNTD Probable UTI -u/a wbc 10-15, nit neg, leul +2 ; ucx <10k ESBL. P. mirabilis (S Zosyn, meropenem) FEver (up to 105.3); fever curve improved but ongoing fever leukocytosis; improving TOMAS; improving Recent Sepsis 2ry to ESBL K.pna bacteremia and Pneumonia 02/2020 -Bcx 3/4 ESBL K.pna (S Levo, Meropenem, ZOsyn); 03/01 Bcx Neg -sp cx ESBL K.pna -02/27 sp removal PICC Line; cath tip cx Neg muscle weakness and atrophy (not characterized) psychiatric disorder dysphagia s/p GT NH resident ( [facility]) Dementia seizure disorder Plan: -dc empiric Amikacin#4 -COntinue Meropenem #4 for UTI and PNA and IV Vancomycin #4 for PNA pending S. aureus sensi -05/02 SP CEfepime x1 , Azithromycin x1 -f/u cx -Monitor CBC/CMP, temperatures -COVID19 neg x2; continue isolation until afebrile >72hrs -ICU/ETT/PEG care -aspiration precautions -Bcx x2 Thank you for consulting [facility]. Will continue to follow along with you. Joy troncoso RN. Subjective Allergies: Coded Allergies: DIPHENHYDRAMINE (Verified Allergy, Unknown, 02/27/20) Tm 102 leukocytosis resolved Levo 8 Objective Last 24 Hour Vital Signs Date Time Temp Pulse Resp B/P (MAP) Pulse Ox O2 Delivery O2 Flow Rate FiO2 05/04/20 13:00 16 123/67 Mechanical Ventilator 40 05/04/20 13:00 109 23 138/67 100 Mechanical Ventilator 05/04/20 12:30 105 23 123/67 100 Mechanical Ventilator 05/04/20 12:00 Endotracheal Tube 05/04/20 12:00 16 118/72 Mechanical Ventilator 40 05/04/20 12:00 106 05/04/20 12:00 109 23 118/72 100 Mechanical Ventilator 05/04/20 11:30 113 23 126/73 100 Mechanical Ventilator 05/04/20 11:00 108 23 117/71 100 Mechanical Ventilator 05/04/20 11:00 17 117/71 40 05/04/20 10:43 104 21 30 05/04/20 10:30 109 23 117/74 100 Mechanical Ventilator 05/04/20 10:00 16 116/71 Mechanical Ventilator 40 05/04/20 10:00 108 21 116/71 100 Mechanical Ventilator 40 05/04/20 09:44 84/55 05/04/20 09:30 88 16 84/55 100 Mechanical Ventilator 40 05/04/20 09:00 16 78/43 Mechanical Ventilator 40 05/04/20 09:00 93 16 78/43 100 Mechanical Ventilator 40 05/04/20 08:30 107 16 96/54 100 Mechanical Ventilator 40 05/04/20 08:00 102 05/04/20 08:00 102 16 92/54 100 Mechanical Ventilator 40 05/04/20 08:00 Endotracheal Tube 05/04/20 08:00 16 92/54 Mechanical Ventilator 40 05/04/20 07:56 30 05/04/20 07:30 101 16 40 05/04/20 07:30 100 05/04/20 07:30 100 16 108/61 100 Mechanical Ventilator 40 05/04/20 07:00 16 111/64 Mechanical Ventilator 40 05/04/20 07:00 100.1 105 17 111/64 100 Mechanical Ventilator 40 05/04/20 06:53 100.8 05/04/20 06:30 103 18 05/04/20 06:00 101 16 116/74 100 Mechanical Ventilator 40 05/04/20 06:00 20 112/60 Mechanical Ventilator 40 05/04/20 05:30 102 16 115/73 100 Mechanical Ventilator 40 05/04/20 05:00 96 16 106/69 100 Mechanical Ventilator 40 05/04/20 05:00 16 115/73 Mechanical Ventilator 40 7/21/20 04:30 99 17 96/65 100 Mechanical Ventilator 40 7/ 04:00 Endotracheal Tube 05/04/20 04:00 101 7 04:00 16 96/65 Mechanical Ventilator 40 7 04:00 99.8 106 20 108/67 100 Mechanical Ventilator 40 7/ 03:32 118 23 40 7//20 03:30 117 22 118/78 100 Mechanical Ventilator 40 7 03:00 24 121/83 Mechanical Ventilator 40 7 03:00 108 21 121/83 100 Mechanical Ventilator 40 7/20 02:30 97 16 119/75 100 Mechanical Ventilator 40 7/20 02:00 95 16 113/70 100 Mechanical Ventilator 40 7 02:00 16 119/75 Mechanical Ventilator 40 7 01:30 100 16 100/63 100 Mechanical Ventilator 40 7 01:00 108 16 94/50 100 Mechanical Ventilator 40 7 01:00 16 119/46 Mechanical Ventilator 40 05/04/20 00:30 103 16 105/60 100 Mechanical Ventilator 40 7 00:30 103 16 105/60 100 7//20 00:29 106/60 7/20 00:00 101 17 106/69 100 7//20 00:00 102.0 101 17 106/69 100 Mechanical Ventilator 40 05/04/20 00:00 Endotracheal Tube 05/04/20 00:00 104 7//20 00:00 16 105/60 Mechanical Ventilator 40 7/20 23:30 106 20 115/73 100 Mechanical Ventilator 40 7/20 23:26 103 18 40 7/20/20 23:00 100 16 110/69 100 Mechanical Ventilator 40 7/20/20 23:00 16 115/73 Mechanical Ventilator 40 7/20/20 22:30 100 16 111/71 100 Mechanical Ventilator 40 7/20/20 22:30 20 110/71 Mechanical Ventilator 100 7/20/20 22:16 20 112/67 Mechanical Ventilator 40 7/20/20 22:00 102 18 112/67 100 Mechanical Ventilator 40 7/20/20 21:30 96 16 96/65 100 Mechanical Ventilator 40 7/20/20 21:00 104 27 127/91 100 Mechanical Ventilator 40 7/20/20 20:30 103 32 110/79 100 Mechanical Ventilator 40 7/20/20 20:00 Endotracheal Tube 7/20/20 20:00 99.4 100 19 122/70 100 Mechanical Ventilator 40 7/20/20 19:30 98 17 114/72 100 7/20/20 19:12 106 24 40 7/20/20 19:00 100 27 108/64 100 7/20/20 18:53 83/48 7/20/20 18:00 105 25 106/59 100 Mechanical Ventilator 40 7/20/20 17:30 122 25 107/59 100 Mechanical Ventilator 40 7/20/20 17:00 111 21 112/67 100 Mechanical Ventilator 40 7/20/20 16:30 105 16 106/67 100 Mechanical Ventilator 40 7/20/20 16:00 105 7/20/20 16:00 Endotracheal Tube 720/20 16:00 102.0 109 23 126/95 100 Mechanical Ventilator 40 7/20/20 16:00 80 7/20/20 15:30 103 18 119/72 100 Mechanical Ventilator 40 7/20/20 15:00 99 16 105/65 100 Mechanical Ventilator 40 7/20/20 14:48 94 16 40 7/20/20 14:30 99 16 100/64 100 Mechanical Ventilator 40 7/20/20 14:00 92 7/20/20 14:00 105 19 100/63 100 40 Height (Feet): 5 Height (Inches): 8.00 Weight (Pounds): 136 GENERAL: The patient is a thin-appearing male, in severe respiratory distress. HEENT: Eyes, pupils equal and responsive to light and accommodation. Extraocular movements are intact. NECK: Supple. No lymphadenopathy. CHEST: Mech Vent; Decreased breath sounds bilaterally without rales. CARDIOVASCULAR: Tachycardic, regular rhythm. S1 and S2 are normal without murmurs, rubs, or gallops. ABDOMEN: Soft, nontender, and nondistended. Positive bowel sounds. No evidence of hepatosplenomegaly. Currently, no rebound or guarding noted. EXTREMITIES: Negative for clubbing, cyanosis, or edema. Microbiology Date/Time Source Procedure Growth Status 05/02/20 09:25 Blood Blood Culture - Preliminary NO GROWTH AFTER 24 HOURS Resulted 05/02/20 09:25 Blood Blood Culture - Preliminary NO GROWTH AFTER 24 HOURS Resulted 05/02/20 18:00 Nasopharynx Coronavirus COVID-19 PCR (TUNG) - Final Complete 05/02/20 18:00 Sputum Induced Gram Stain - Final Resulted 05/02/20 18:00 Sputum Culture - Preliminary Gram Negative Bacillus 1 Gram Negative Bacillus 2 Resulted 05/02/20 09:25 Nasopharynx SARS-CoV-2 RdRp Gene Assay - Final Complete 05/02/20 10:00 Indwelling Cath Urine Culture - Preliminary Gram Negative Bacillus 1 Resulted 05/02/20 09:25 Rectum Received Laboratory Tests Test 05/04/20 03:00 05/04/20 07:42 White Blood Count 13.1 K/UL (4.8-10.8) H Red Blood Count 2.81 M/UL (4.70-6.10) L Hemoglobin 9.0 G/DL (14.2-18.0) L Hematocrit 26.4 % (42.0-52.0) L Mean Corpuscular Volume 94 FL (80-99) Mean Corpuscular Hemoglobin 32.0 PG (27.0-31.0) H Mean Corpuscular Hemoglobin Concent 34.0 G/DL (32.0-36.0) Red Cell Distribution Width 11.9 % (11.6-14.8) Platelet Count 96 K/UL (150-450) L Mean Platelet Volume 9.3 FL (6.5-10.1) Neutrophils (%) (Auto) % (45.0-75.0) Lymphocytes (%) (Auto) % (20.0-45.0) Monocytes (%) (Auto) % (1.0-10.0) Eosinophils (%) (Auto) % (0.0-3.0) Basophils (%) (Auto) % (0.0-2.0) Sodium Level 140 MMOL/L (136-145) Potassium Level 3.1 MMOL/L (3.5-5.1) L Chloride Level 110 MMOL/L (98-107) H Carbon Dioxide Level 23 MMOL/L (21-32) Anion Gap 7 mmol/L (5-15) Blood Urea Nitrogen 11 mg/dL (7-18) Creatinine 0.9 MG/DL (0.55-1.30) Estimat Glomerular Filtration Rate > 60 mL/min (>60) Glucose Level 101 MG/DL (74-106) Calcium Level 7.8 MG/DL (8.5-10.1) L Phosphorus Level 1.2 MG/DL (2.5-4.9) L Magnesium Level 1.6 MG/DL (1.8-2.4) L Total Bilirubin 0.6 MG/DL (0.2-1.0) Aspartate Amino Transf (AST/SGOT) 30 U/L (15-37) Alanine Aminotransferase (ALT/SGPT) 33 U/L (12-78) Alkaline Phosphatase 49 U/L (46-116) Total Protein 5.2 G/DL (6.4-8.2) L Albumin 1.9 G/DL (3.4-5.0) L Globulin 3.3 g/dL Albumin/Globulin Ratio 0.6 (1.0-2.7) L Vancomycin Level Trough 6.8 ug/mL (5.0-12.0) Arterial Blood pH 7.404 (7.350-7.450) Arterial Blood Partial Pressure CO2 33.9 mmHg (35.0-45.0) L Arterial Blood Partial Pressure O2 407.3 mmHg (75.0-100.0) H Arterial Blood HCO3 20.7 mmol/L (22.0-26.0) L Arterial Blood Oxygen Saturation 99.3 % (95-100) Arterial Blood Base Excess -3.5 (-2-2) L Nicolas Test Positive Current Medications Medications (Trade) Dose Ordered Sig/Damion Route PRN Reason Start Time Stop Time Status Last Admin Dose Admin Acetaminophen (Tylenol) 650 mg Q4H PRN GT fever 05/02/20 12:45 06/01/20 12:44 05/04/20 06:23 Albuterol/ Ipratropium (Albuterol/ Ipratropium) 3 ml Q4H PRN HHN Shortness of Breath 05/02/20 12:45 05/07/20 12:44 Amikacin Protocol (Amikacin pharmacy to dose) 1 ea DAILY PRN MISC . 05/02/20 13:00 06/01/20 12:59 Amikacin Sulfate 1000 mg/Sodium Chloride 114 ml @ 114 mls/hr Q24H IV 05/03/20 15:00 05/10/20 14:59 05/03/20 15:18 Chlorhexidine Gluconate (Marci-Hex 2%) 1 applic DAILY@2000 TOPIC 05/03/20 20:00 08/01/20 19:59 05/03/20 20:29 Fentanyl Citrate 250 ml @ 0 mls/hr Q24H IV 05/03/20 22:03 08/01/20 22:02 05/03/20 22:16 Heparin Sodium (Porcine) (Heparin 5000 units/ml) 5,000 units EVERY 12 HOURS SUBQ 05/02/20 21:00 06/16/20 20:59 05/03/20 20:55 Levetiracetam (Keppra) 700 mg Q12HR GT 05/02/20 21:00 06/01/20 20:59 05/04/20 09:04 Lorazepam (Ativan 2mg/ml 1ml) 2 mg Q2H PRN IV For Anxiety 05/02/20 12:45 05/09/20 12:44 05/03/20 20:29 Magnesium Sulfate 100 ml @ 100 mls/hr Q1H IVPB 05/04/20 12:45 05/04/20 14:44 Meropenem 1 gm/ Sodium Chloride 55 ml @ 110 mls/hr Q8HR IVPB 05/02/20 15:00 05/07/20 14:59 05/04/20 05:58 Morphine Sulfate (Morphine Sulfate) 4 mg Q4H PRN IVP Severe Pain (Pain Scale 7-10) 05/02/20 12:45 05/09/20 12:44 Norepinephrine Bitartrate 250 ml @ 0 mls/hr Q24H IV 05/02/20 12:48 07/31/20 12:47 05/04/20 09:44 Ondansetron HCl (Zofran) 4 mg Q6H PRN IVP Nausea & Vomiting 05/02/20 12:45 06/01/20 12:44 Pantoprazole (Protonix) 40 mg DAILY IVP 05/03/20 09:00 06/02/20 08:59 05/04/20 09:04 Polyethylene Glycol (Miralax) 17 gm DAILYPRN PRN GT Constipation 05/02/20 12:45 06/01/20 12:44 Potassium Chloride 100 ml @ 100 mls/hr Q1H IVPB 05/04/20 11:00 05/04/20 14:59 Sodium Chloride 1,000 ml @ 100 mls/hr Q10H IVLG 05/02/20 12:40 06/01/20 12:39 05/04/20 06:23 Sodium Phosphate 30 mm/Sodium Chloride 285 ml @ 47.5 mls/hr ONCE ONCE IV 05/04/20 13:00 05/04/20 18:59 Valproic Acid (Depakene) 250 mg DAILY GT 05/03/20 09:00 06/02/20 08:59 05/04/20 09:03 Vancomycin HCl (Rx Monitoring Vancomycin) 1 ea DAILY PRN MISC . 05/02/20 13:00 06/01/20 12:59 Vancomycin HCl 500 mg/Dextrose 110 ml @ 110 mls/hr Q8H IVPB 05/04/20 04:00 05/09/20 03:59 05/04/20 04:23 Charlene Stokes M.D. May 04, 2020 14:09
[2020-05-04] MEDS: Potassium Chloride 10 MEQ in D5 1/2NS 1,000 ML IV SCH (15:51)
[2020-05-04] MEDS: Amikacin 1,000 MG in NS 110 ML IV SCH (15:52)
[2020-05-04] MEDS ORDERED: Etomidate 40mg/20ml Inj IV ONE (17:05)
[2020-05-04] MEDS: fentaNYL 2500mcg/NS 250ml 250 ML IV SCH ×2 (17:13→22:58)
[2020-05-04] MEDS: LORazepam Inj 2mg/ml 1ml IV PRN (17:14)
--- NOTE | 2020-05-04 19:21 | Internal Med Progress Note ---
Subjective Date of Service: May 04, 2020 Physician Name Obey Cisneros Attending Physician Marky Go MD Current Medications Medications (Trade) Dose Ordered Sig/Damion Route PRN Reason Start Time Stop Time Status Last Admin Dose Admin Acetaminophen (Tylenol) 650 mg Q4H PRN GT fever 05/02/20 12:45 06/01/20 12:44 05/04/20 15:15 Albuterol/ Ipratropium (Albuterol/ Ipratropium) 3 ml Q4H PRN HHN Shortness of Breath 05/02/20 12:45 05/07/20 12:44 Amikacin Protocol (Amikacin pharmacy to dose) 1 ea DAILY PRN MISC . 05/02/20 13:00 06/01/20 12:59 Amikacin Sulfate 1000 mg/Sodium Chloride 114 ml @ 114 mls/hr Q24H IV 05/03/20 15:00 05/10/20 14:59 05/04/20 15:52 Aspirin (ASA) 81 mg DAILY GT 05/05/20 09:00 06/19/20 08:59 Chlorhexidine Gluconate (Marci-Hex 2%) 1 applic DAILY@2000 TOPIC 05/03/20 20:00 08/01/20 19:59 05/03/20 20:29 Fentanyl Citrate 250 ml @ 0 mls/hr Q24H IV 05/03/20 22:03 08/01/20 22:02 05/04/20 17:13 Heparin Sodium (Porcine) (Heparin 5000 units/ml) 5,000 units EVERY 12 HOURS SUBQ 05/02/20 21:00 06/16/20 20:59 05/03/20 20:55 Levetiracetam (Keppra) 700 mg Q12HR GT 05/02/20 21:00 06/01/20 20:59 05/04/20 09:04 Lorazepam (Ativan 2mg/ml 1ml) 2 mg Q2H PRN IV For Anxiety 05/02/20 12:45 05/09/20 12:44 05/04/20 17:14 Meropenem 1 gm/ Sodium Chloride 55 ml @ 110 mls/hr Q8HR IVPB 05/02/20 15:00 05/07/20 14:59 05/04/20 14:09 Midodrine (Pro-Amatine) 10 mg Q8HR GT 05/04/20 22:00 08/02/20 21:59 Morphine Sulfate (Morphine Sulfate) 4 mg Q4H PRN IVP Severe Pain (Pain Scale 7-10) 05/02/20 12:45 05/09/20 12:44 Norepinephrine Bitartrate 250 ml @ 0 mls/hr Q24H IV 05/02/20 12:48 07/31/20 12:47 05/04/20 17:14 Ondansetron HCl (Zofran) 4 mg Q6H PRN IVP Nausea & Vomiting 05/02/20 12:45 06/01/20 12:44 Pantoprazole (Protonix) 40 mg Q12HR IVP 05/04/20 21:00 06/02/20 08:59 Polyethylene Glycol (Miralax) 17 gm DAILYPRN PRN GT Constipation 05/02/20 12:45 06/01/20 12:44 Potassium Chloride 10 meq/ Dextrose/Sodium Chloride 1,005 ml @ 75 mls/hr [id number] IV 05/04/20 16:00 06/03/20 15:59 05/04/20 15:51 Valproic Acid (Depakene) 250 mg DAILY GT 05/03/20 09:00 06/02/20 08:59 05/04/20 09:03 Allergies: Coded Allergies: DIPHENHYDRAMINE (Verified Allergy, Unknown, 02/27/20) ROS Limited/Unobtainable: Yes Subjective 59 YO M admitted with respiratory failure. Now pneumonia. Intubated and sedated. Cover for Int Faraz-Dr Go. ICU Objective Last Vital Signs Date Time Temp Pulse Resp B/P (MAP) Pulse Ox O2 Delivery O2 Flow Rate FiO2 05/04/20 18:00 16 90/58 Mechanical Ventilator 40 05/04/20 18:00 104 100 05/04/20 16:00 99.9 05/02/20 14:20 15.0 Laboratory Tests Test 05/04/20 03:00 05/04/20 07:42 White Blood Count 13.1 K/UL (4.8-10.8) H Red Blood Count 2.81 M/UL (4.70-6.10) L Hemoglobin 9.0 G/DL (14.2-18.0) L Hematocrit 26.4 % (42.0-52.0) L Mean Corpuscular Volume 94 FL (80-99) Mean Corpuscular Hemoglobin 32.0 PG (27.0-31.0) H Mean Corpuscular Hemoglobin Concent 34.0 G/DL (32.0-36.0) Red Cell Distribution Width 11.9 % (11.6-14.8) Platelet Count 96 K/UL (150-450) L Mean Platelet Volume 9.3 FL (6.5-10.1) Neutrophils (%) (Auto) % (45.0-75.0) Lymphocytes (%) (Auto) % (20.0-45.0) Monocytes (%) (Auto) % (1.0-10.0) Eosinophils (%) (Auto) % (0.0-3.0) Basophils (%) (Auto) % (0.0-2.0) Sodium Level 140 MMOL/L (136-145) Potassium Level 3.1 MMOL/L (3.5-5.1) L Chloride Level 110 MMOL/L (98-107) H Carbon Dioxide Level 23 MMOL/L (21-32) Anion Gap 7 mmol/L (5-15) Blood Urea Nitrogen 11 mg/dL (7-18) Creatinine 0.9 MG/DL (0.55-1.30) Estimat Glomerular Filtration Rate > 60 mL/min (>60) Glucose Level 101 MG/DL (74-106) Calcium Level 7.8 MG/DL (8.5-10.1) L Phosphorus Level 1.2 MG/DL (2.5-4.9) L Magnesium Level 1.6 MG/DL (1.8-2.4) L Total Bilirubin 0.6 MG/DL (0.2-1.0) Aspartate Amino Transf (AST/SGOT) 30 U/L (15-37) Alanine Aminotransferase (ALT/SGPT) 33 U/L (12-78) Alkaline Phosphatase 49 U/L (46-116) Total Protein 5.2 G/DL (6.4-8.2) L Albumin 1.9 G/DL (3.4-5.0) L Globulin 3.3 g/dL Albumin/Globulin Ratio 0.6 (1.0-2.7) L Vancomycin Level Trough 6.8 ug/mL (5.0-12.0) Arterial Blood pH 7.404 (7.350-7.450) Arterial Blood Partial Pressure CO2 33.9 mmHg (35.0-45.0) L Arterial Blood Partial Pressure O2 407.3 mmHg (75.0-100.0) H Arterial Blood HCO3 20.7 mmol/L (22.0-26.0) L Arterial Blood Oxygen Saturation 99.3 % (95-100) Arterial Blood Base Excess -3.5 (-2-2) L Nicolas Test Positive Microbiology Date/Time Source Procedure Growth Status 05/02/20 09:25 Blood Blood Culture - Preliminary NO GROWTH AFTER 24 HOURS Resulted 05/02/20 09:25 Blood Blood Culture - Preliminary NO GROWTH AFTER 24 HOURS Resulted 05/02/20 18:00 Nasopharynx Coronavirus COVID-19 PCR (TUNG) - Final Complete 05/02/20 18:00 Sputum Induced Gram Stain - Final Resulted 05/02/20 18:00 Sputum Culture - Preliminary Gram Negative Bacillus 1 Gram Negative Bacillus 2 Resulted 05/02/20 09:25 Nasopharynx SARS-CoV-2 RdRp Gene Assay - Final Complete 05/02/20 10:00 Indwelling Cath Urine Culture - Preliminary Gram Negative Bacillus 1 Resulted 05/02/20 09:25 Rectum Received Intake and Output 05/03/20 05/04/20 19:00 07:00 Intake Total 2398.41 ml 1731.25 ml Output Total 750 ml 670 ml Balance 1648.41 ml 1061.25 ml Intake Free Water 180 ml IV Total 2218.41 ml 1731.25 ml Output Urine Total 750 ml 670 ml # Bowel Movements 2 9 Objective PHYSICAL EXAMINATION: GENERAL: The patient is a thin-appearing male, in severe respiratory distress. HEENT: Eyes, pupils equal and responsive to light and accommodation. Extraocular movements are intact. NECK: Supple. No lymphadenopathy. CHEST: Mech Vent; Decreased breath sounds bilaterally without rales. CARDIOVASCULAR: Tachycardic, regular rhythm. S1 and S2 are normal without murmurs, rubs, or gallops. ABDOMEN: Soft, nontender, and nondistended. Positive bowel sounds. No evidence of hepatosplenomegaly. Currently, no rebound or guarding noted. EXTREMITIES: Negative for clubbing, cyanosis, or edema. RECTAL/GENITAL: Not performed. NEUROLOGICAL: Unable to assess Assessment/Plan Assessment/Plan ASSESSMENT: This is a 59-year-old male. 1. Shortness of breath. 2. Hypoxia. 3. Right lower lobe pneumonia. 4. Acute respiratory failure. 5. History of cerebrovascular accident. 6. Seizure disorder. 7. Functional quadriplegia. 8. Schizophrenia. 9. Dysphagia. TREATMENT: 1. Respiratory failure/pneumonia. Intubated; A pulmonary consultation has been obtained with Dr. Ana Maria Hansen. The patient was febrile on admission. The patient has been started empirically on vancomycin, amikacin, and meropenem. We will follow recommendations of Pulmonary. 2. Seizure disorder. Continue Keppra, Depakote as above. 3. Functional quadriplegia. 4. Schizophrenia. Continue Risperdal as above. 5. Dysphagia. The patient is status post PEG. Obey Cisneros MD May 04, 2020 19:21
[2020-05-04] MEDS: Dyna-Hex 2% Top Sol 2oz TOPIC SCH (20:20)
[2020-05-04] MEDS: Midodrine 10mg tab GT SCH (21:34)
[2020-05-04] MEDS ORDERED: Tubing IV Secondary IV ONE (22:12)
[2020-05-04] MEDS ORDERED: NS 275ml ONE (22:12)
[2020-05-05] VITALS (46 sets, daily range): BP systolic 91–146; BP diastolic 52–89
[2020-05-05] MEDS: Norepinephrine 4mg/NS Premix 250 ML IV SCH ×2 (04:49→13:29)
[2020-05-05] MEDS: Acetaminophen 650mg/20.3ml GT PRN ×2 (04:49→16:42)
[2020-05-05] MEDS: Potassium Chloride 10 MEQ in D5 1/2NS 1,000 ML IV SCH ×2 (04:49→18:21)
[2020-05-05] MEDS: Meropenem 1 GM in NS 55 ML IVPB SCH ×3 (05:33→22:11)
[2020-05-05] MEDS: Midodrine 10mg tab GT SCH ×3 (05:33→22:10)
[2020-05-05 05:43] LABS: HEMATOCRIT 25.5 % (42.0-52.0); HEMOGLOBIN 8.4 G/DL (14.2-18.0); MEAN CORPUSCULAR VOLUME 94 FL (80-99); PLATELET COUNT 97 K/UL (150-450); RED BLOOD COUNT 2.73 M/UL (4.70-6.10); RED CELL DISTRIBUTION WIDTH 11.5 % (11.6-14.8); WHITE BLOOD COUNT 10.7 K/UL (4.8-10.8)
[2020-05-05 05:52] LABS: ALANINE AMINOTRANSFERASE 35 U/L (12-78); ALBUMIN 1.8 G/DL (3.4-5.0); ALBUMIN/GLOBULIN RATIO 0.5 (1.0-2.7); ALKALINE PHOSPHATASE 58 U/L (46-116); ANION GAP 9 mmol/L (5-15); ASPARTATE AMINO TRANSFERASE 22 U/L (15-37); BILIRUBIN,TOTAL 0.5 MG/DL (0.2-1.0); BLOOD UREA NITROGEN 6 mg/dL (7-18); CALCIUM 7.5 MG/DL (8.5-10.1); CARBON DIOXIDE 25 MMOL/L (21-32); CHLORIDE 109 MMOL/L (98-107); CREATININE 0.9 MG/DL (0.55-1.30); PHOSPHORUS 1.7 MG/DL (2.5-4.9); SODIUM 143 MMOL/L (136-145)
[2020-05-05 06:19] LABS: POTASSIUM 2.6 MMOL/L (3.5-5.1)
[2020-05-05 06:30] LABS: CHOLESTEROL 77 MG/DL (< 200); FERRITIN 329 NG/ML (8-388); HDL CHOLESTEROL 19 MG/DL (40-60); TRIGLYCERIDES 80 MG/DL (30-150)
[2020-05-05 06:32] LABS: % IRON SATURATION 41 % (15-50); IRON 30 ug/dL (50-175); TOTAL IRON BINDING CAPACITY 73 ug/dL (250-450)
[2020-05-05] MEDS: fentaNYL 2500mcg/NS 250ml 250 ML IV SCH ×2 (08:17→17:21)
[2020-05-05] MEDS: Pantoprazole Inj IVP SCH ×2 (08:54→21:24)
[2020-05-05] MEDS: levETIRAcetam 500mg/5ml Liquid GT SCH ×2 (08:55→21:24)
[2020-05-05] MEDS: Aspirin Baby 81mg GT SCH (08:55)
[2020-05-05] MEDS: Valproic Acid 250mg/5ml Liquid GT SCH (08:56)
[2020-05-05] MEDS ORDERED: Potassium Phosphate 20 MM in NS 275 ML IV ONE (09:00)
[2020-05-05] MEDS: Heparin 5000 units/ml inj SUBQ SCH ×2 (09:00→21:00)
--- NOTE | 2020-05-05 10:37 | Diagnostic Imaging Report ---
Procedure: XRAY Chest 1v Reason for study: Reason For Exam: [id number] Comparison films: 05/04/2020. FINDINGS: Endotracheal tube and right central venous catheter remain in place. Right basilar consolidation and small right effusion unchanged. Cardiac and mediastinal silhouette are within normal limits. The bony thorax appear unremarkable. IMPRESSION: NO SIGNIFICANT CHANGE COMPARED TO PREVIOUS EXAM.
--- NOTE | 2020-05-05 11:00 | Pulmonolgy Critical Care Note ---
Critical Care - Asmt/Plan Problems: (1) Acute respiratory failure (2) Sepsis (3) Nosocomial pneumonia (4) Seizure disorder (5) Dehydration (6) COPD (chronic obstructive pulmonary disease) (7) longterm resident (8) History of CVA (cerebrovascular accident) Respiratory: monitor respiratory rate, adjust FIO2, CXR Cardiac: continue pressors, continue to monitor HR/BP Renal: F/U I&O, keep IV fluid Infectious Disease: continue antibiotics Gastrointestinal: continue feedings/current rate Endocrine: monitor blood sugar Hematologic: monitor H/H, transfuse if hgb<8.5 Neurologic: PRN Ativan, keep patient comfortable Affect: PRN ativan Prophylaxis: Protonix Disposition: keep in ICU Time Spent (Minutes): 40 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, 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, 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 with: consultants, casework managermanager country - Objective Last 24 Hour Vital Signs Date Time Temp Pulse Resp B/P (MAP) Pulse Ox O2 Delivery O2 Flow Rate FiO2 05/05/20 10:52 105 18 30 05/05/20 09:00 100 16 110/69 100 Mechanical Ventilator 30 05/05/20 08:30 94 16 113/68 100 Mechanical Ventilator 30 05/05/20 08:17 20 118/54 Mechanical Ventilator 30 05/05/20 08:00 99.5 92 17 118/78 100 Mechanical Ventilator 30 05/05/20 08:00 Endotracheal Tube 05/05/20 07:30 90 16 100/68 100 Mechanical Ventilator 40 05/05/20 07:24 90 16 30 05/05/20 07:00 16 115/81 Mechanical Ventilator 40 05/05/20 07:00 97.0 89 17 115/81 100 Mechanical Ventilator 40 05/05/20 06:30 95 18 05/05/20 06:00 21 108/76 Mechanical Ventilator 30 05/05/20 06:00 94 17 108/76 100 Mechanical Ventilator 40 05/05/20 05:33 100.4 05/05/20 05:30 96 16 114/68 100 Mechanical Ventilator 40 05/05/20 05:00 100.0 109 16 100 Mechanical Ventilator 40 05/05/20 05:00 16 112/71 Mechanical Ventilator 30 05/05/20 04:49 100/80 05/05/20 04:30 95 16 146/80 100 Mechanical Ventilator 40 05/05/20 04:00 95 05/05/20 04:00 Endotracheal Tube 7/22/20 04:00 18 143/81 Mechanical Ventilator 40 05/05/20 04:00 95 16 143/81 100 Mechanical Ventilator 40 05/05/20 04:00 40 05/05/20 03:30 99 16 135/78 100 Mechanical Ventilator 40 05/05/20 03:13 97 16 30 05/05/20 03:00 16 104/54 Mechanical Ventilator 40 05/05/20 03:00 89 16 95/56 100 Mechanical Ventilator 40 05/05/20 02:30 98 16 135/77 100 Mechanical Ventilator 40 05/05/20 02:00 97 16 125/73 100 Mechanical Ventilator 40 05/05/20 02:00 18 104/54 Mechanical Ventilator 40 05/05/20 01:30 92 16 125/73 100 Mechanical Ventilator 40 05/05/20 01:00 86 16 95/52 100 Mechanical Ventilator 40 05/05/20 01:00 16 125/73 Mechanical Ventilator 40 05/05/20 00:30 86 16 100/58 100 Mechanical Ventilator 40 05/05/20 00:00 101.0 92 16 108/61 100 Mechanical Ventilator 40 05/05/20 00:00 Endotracheal Tube 05/05/20 00:00 105 05/05/20 00:00 16 100/58 Mechanical Ventilator 40 05/05/20 00:00 40 05/04/20 23:30 92 16 85/45 100 Mechanical Ventilator 40 05/04/20 23:20 95 16 30 05/04/20 23:00 98 16 91/60 100 Mechanical Ventilator 40 05/04/20 23:00 16 85/45 Mechanical Ventilator 40 05/04/20 22:58 16 86/50 Mechanical Ventilator 40 05/04/20 22:30 106 16 72/43 100 Mechanical Ventilator 40 05/04/20 22:00 89 16 89/59 100 Mechanical Ventilator 40 05/04/20 22:00 16 107/65 Mechanical Ventilator 40 05/04/20 21:30 101.2 101 16 109/70 100 Mechanical Ventilator 40 05/04/20 21:00 16 109/70 Mechanical Ventilator 40 05/04/20 21:00 101 16 105/67 100 Mechanical Ventilator 40 05/04/20 20:30 98 16 107/65 100 Mechanical Ventilator 40 05/04/20 20:00 Endotracheal Tube 05/04/20 20:00 102.0 99 16 100/59 100 Mechanical Ventilator 40 05/04/ 20:00 16 107/65 Mechanical Ventilator 40 20 20:00 40 05/04/20 20:00 98 05/04/20 19:33 105 16 30 05/04/20 19:30 108 16 119/72 100 Mechanical Ventilator 40 05/04/20 18:00 16 90/58 Mechanical Ventilator 40 05/04/20 18:00 104 16 90/58 100 Mechanical Ventilator 40 05/04/20 17:30 106 16 88/54 100 Mechanical Ventilator 40 05/04/20 17:14 100/55 05/04/20 17:13 18 100/55 Mechanical Ventilator 40 05/04/20 17:04 16 100/55 Mechanical Ventilator 40 05/04/20 17:00 104 16 100/55 100 Mechanical Ventilator 40 05/04/20 16:30 111 16 103/69 100 Mechanical Ventilator 40 05/04/20 16:00 40 05/04/20 16:00 112 05/04/20 16:00 16 111/68 Mechanical Ventilator 40 05/04/20 16:00 99.9 113 16 111/68 100 Mechanical Ventilator 40 05/04/20 16:00 Endotracheal Tube 05/04/20 16:00 113 16 111/68 100 Mechanical Ventilator 40 05/04/20 15:30 97 16 103/58 100 Mechanical Ventilator 40 05/04/20 15:00 108 16 104/65 100 Mechanical Ventilator 40 05/04/20 15:00 16 104/67 Mechanical Ventilator 40 05/04/20 14:49 109 16 30 05/04/20 14:30 112 15 104/67 100 Mechanical Ventilator 40 05/04/20 14:09 16 101/69 Mechanical Ventilator 40 05/04/20 14:00 109 16 101/69 100 Mechanical Ventilator 40 05/04/20 13:30 107 16 110/67 100 Mechanical Ventilator 40 05/04/20 13:00 16 123/67 Mechanical Ventilator 40 05/04/20 13:00 109 23 138/67 100 Mechanical Ventilator 05/04/20 12:30 105 23 123/67 100 Mechanical Ventilator 05/04/20 12:00 Endotracheal Tube 05/04/20 12:00 16 118/72 Mechanical Ventilator 40 05/04/20 12:00 106 05/04/20 12:00 40 05/04/20 12:00 100.2 109 23 118/72 100 Mechanical Ventilator 05/04/20 12:00 109 23 118/72 100 Mechanical Ventilator 05/04/20 11:30 113 23 126/73 100 Mechanical Ventilator 05/04/20 11:00 108 23 117/71 100 Mechanical Ventilator 05/04/20 11:00 17 117/71 40 Status: sedated Condition: critical HEENT: atraumatic, normocephalic Neck: full ROM Lungs: rales, rhonchi Heart: HR/BP stable Abdomen: soft, non-tender Extremities: no C/C/E Decubiti: location Micro: Microbiology Date/Time Source Procedure Growth Status 05/02/20 18:00 Nasopharynx Coronavirus COVID-19 PCR ([facility]) - Final Complete 05/02/20 18:00 Sputum Induced Gram Stain - Final Resulted 05/02/20 18:00 Sputum Culture - Preliminary Enterobacter Aerogenes Pseudomonas Aeruginosa Staphylococcus Aureus Resulted Critical Care - Subjective ROS Limited/Unobtainable: Yes Interval Events: looks comfortable Condition: critical FI02: 30 Vent Support Breath Rate: 16 Vent Support Mode: AC Vent Tidal Volume: 600 Sputum Amount: Moderate PEEP: 0.0 PIP: 27 I&O: Intake and Output 05/04/20 05/05/20 19:00 07:00 Intake Total 2145.0 ml 1705.0 ml Output Total 1500 ml 1720 ml Balance 645.0 ml -15.0 ml Intake Free Water 120 ml IV Total 2025.0 ml 1705.0 ml Output Urine Total 1500 ml 1720 ml # Bowel Movements 5 4 CXR: extensive RLL infiltrate ET-Tube: 7.5 ET Position: 24 Labs: Laboratory Tests Test 05/05/20 03:10 05/05/20 08:18 White Blood Count 10.7 K/UL (4.8-10.8) Red Blood Count 2.73 M/UL (4.70-6.10) L Hemoglobin 8.4 G/DL (14.2-18.0) L Hematocrit 25.5 % (42.0-52.0) L Mean Corpuscular Volume 94 FL (80-99) Mean Corpuscular Hemoglobin 30.8 PG (27.0-31.0) Mean Corpuscular Hemoglobin Concent 32.9 G/DL (32.0-36.0) Red Cell Distribution Width 11.5 % (11.6-14.8) L Platelet Count 97 K/UL (150-450) L Mean Platelet Volume 8.9 FL (6.5-10.1) Neutrophils (%) (Auto) % (45.0-75.0) Lymphocytes (%) (Auto) % (20.0-45.0) Monocytes (%) (Auto) % (1.0-10.0) Eosinophils (%) (Auto) % (0.0-3.0) Basophils (%) (Auto) % (0.0-2.0) Sodium Level 143 MMOL/L (136-145) Potassium Level 2.6 MMOL/L (3.5-5.1) *L Chloride Level 109 MMOL/L (98-107) H Carbon Dioxide Level 25 MMOL/L (21-32) Anion Gap 9 mmol/L (5-15) Blood Urea Nitrogen 6 mg/dL (7-18) L Creatinine 0.9 MG/DL (0.55-1.30) Estimat Glomerular Filtration Rate > 60 mL/min (>60) Glucose Level 93 MG/DL (74-106) Uric Acid 4.3 MG/DL (2.6-7.2) Calcium Level 7.5 MG/DL (8.5-10.1) L Phosphorus Level 1.7 MG/DL (2.5-4.9) L Magnesium Level 1.7 MG/DL (1.8-2.4) L Iron Level 30 ug/dL (50-175) L Total Iron Binding Capacity 73 ug/dL (250-450) L Percent Iron Saturation 41 % (15-50) Unsaturated Iron Binding 43 ug/dL (112-346) L Ferritin 329 NG/ML (8-388) Total Bilirubin 0.5 MG/DL (0.2-1.0) Aspartate Amino Transf (AST/SGOT) 22 U/L (15-37) Alanine Aminotransferase (ALT/SGPT) 35 U/L (12-78) Alkaline Phosphatase 58 U/L (46-116) Troponin I 0.015 ng/mL (0.000-0.056) C-Reactive Protein, Quantitative 28.8 mg/dL (0.00-0.90) H Pro-B-Type Natriuretic Peptide 2250 pg/mL (0-125) H Total Protein 5.2 G/DL (6.4-8.2) L Albumin 1.8 G/DL (3.4-5.0) L Globulin 3.4 g/dL Albumin/Globulin Ratio 0.5 (1.0-2.7) L Triglycerides Level 80 MG/DL (30-150) Cholesterol Level 77 MG/DL (< 200) LDL Cholesterol 46 mg/dL (<100) HDL Cholesterol 19 MG/DL (40-60) L Cholesterol/HDL Ratio 4.1 (3.3-4.4) Vitamin B12 Level 1057 PG/ML (193-986) H Folate 18.8 NG/ML (8.6-58.9) Thyroid Stimulating Hormone (TSH) 0.602 uiU/mL (0.358-3.740) Arterial Blood pH 7.261 (7.350-7.450) Arterial Blood Partial Pressure CO2 44.7 mmHg (35.0-45.0) Arterial Blood Partial Pressure O2 127.5 mmHg (75.0-100.0) H Arterial Blood HCO3 19.7 mmol/L (22.0-26.0) L Arterial Blood Oxygen Saturation 97.6 % (95-100) Arterial Blood Base Excess -7.0 (-2-2) L Nicolas Test Positive Ana Maria Hansen MD May 05, 2020 11:00
[2020-05-05] MEDS: LORazepam Inj 2mg/ml 1ml IV PRN ×2 (11:07→13:41)
--- NOTE | 2020-05-05 12:01 | Nephrology Progress Note ---
Assessment/Plan Problem List: (1) Electrolyte imbalance (2) Dehydration (3) Acute respiratory failure (4) Seizure disorder Assessment Severe electrolyte abnormalities Low magnesium, low phosphorus, low potassium, Other active conditions: (1) Acute respiratory failure (2) Sepsis (3) Nosocomial pneumonia (4) Seizure disorder (5) Dehydration (6) COPD (chronic obstructive pulmonary disease) (7) long term resident (8) History of CVA (cerebrovascular accident) Plan Discussed with RN Stanley, , phosphorus and potassium supplement ordered Monitor electrolytes Continue per consultants Subjective ROS Limited/Unobtainable: Yes Objective Objective Last 24 Hour Vital Signs Date Time Temp Pulse Resp B/P (MAP) Pulse Ox O2 Delivery O2 Flow Rate FiO2 05/05/20 10:52 105 18 30 05/05/20 09:00 100 16 110/69 100 Mechanical Ventilator 30 05/05/20 08:30 94 16 113/68 100 Mechanical Ventilator 30 05/05/20 08:17 20 118/54 Mechanical Ventilator 30 05/05/20 08:00 99.5 92 17 118/78 100 Mechanical Ventilator 30 05/05/20 08:00 Endotracheal Tube 05/05/20 07:30 90 16 100/68 100 Mechanical Ventilator 40 05/05/20 07:24 90 16 30 05/05/20 07:00 16 115/81 Mechanical Ventilator 40 05/05/20 07:00 97.0 89 17 115/81 100 Mechanical Ventilator 40 05/05/20 06:30 95 18 05/05/20 06:00 21 108/76 Mechanical Ventilator 30 05/05/20 06:00 94 17 108/76 100 Mechanical Ventilator 40 05/05/20 05:33 100.4 05/05/20 05:30 96 16 114/68 100 Mechanical Ventilator 40 05/05/20 05:00 100.0 109 16 100 Mechanical Ventilator 40 05/05/20 05:00 16 112/71 Mechanical Ventilator 30 05/05/20 04:49 100/80 05/05/20 04:30 95 16 146/80 100 Mechanical Ventilator 40 05/05/20 04:00 95 05/05/20 04:00 Endotracheal Tube 05/05/20 04:00 18 143/81 Mechanical Ventilator 40 05/05/20 04:00 95 16 143/81 100 Mechanical Ventilator 40 05/05/20 04:00 40 05/05/20 03:30 99 16 135/78 100 Mechanical Ventilator 40 05/05/20 03:13 97 16 30 05/05/20 03:00 16 104/54 Mechanical Ventilator 40 05/05/20 03:00 89 16 95/56 100 Mechanical Ventilator 40 05/05/20 02:30 98 16 135/77 100 Mechanical Ventilator 40 05/05/20 02:00 97 16 125/73 100 Mechanical Ventilator 40 05/05/20 02:00 18 104/54 Mechanical Ventilator 40 05/05/20 01:30 92 16 125/73 100 Mechanical Ventilator 40 05/05/20 01:00 86 16 95/52 100 Mechanical Ventilator 40 05/05/20 01:00 16 125/73 Mechanical Ventilator 40 05/05/20 00:30 86 16 100/58 100 Mechanical Ventilator 40 05/05/20 00:00 101.0 92 16 108/61 100 Mechanical Ventilator 40 05/05/20 00:00 Endotracheal Tube 05/05/20 00:00 105 05/05/20 00:00 16 100/58 Mechanical Ventilator 40 05/05/20 00:00 40 05/04/20 23:30 92 16 85/45 100 Mechanical Ventilator 40 05/04/20 23:20 95 16 30 05/04/20 23:00 98 16 91/60 100 Mechanical Ventilator 40 05/04/20 23:00 16 85/45 Mechanical Ventilator 40 05/04/20 22:58 16 86/50 Mechanical Ventilator 40 05/04/20 22:30 106 16 72/43 100 Mechanical Ventilator 40 05/04/20 22:00 89 16 89/59 100 Mechanical Ventilator 40 05/04/20 22:00 16 107/65 Mechanical Ventilator 40 05/04/20 21:30 101.2 101 16 109/70 100 Mechanical Ventilator 40 05/04/20 21:00 16 109/70 Mechanical Ventilator 40 05/04/20 21:00 101 16 105/67 100 Mechanical Ventilator 40 05/04/20 20:30 98 16 107/65 100 Mechanical Ventilator 40 05/04/20 20:00 Endotracheal Tube 05/04/20 20:00 102.0 99 16 100/59 100 Mechanical Ventilator 40 05/04/20 20:00 16 107/65 Mechanical Ventilator 40 05/04/20 20:00 40 05/04/20 20:00 98 05/04/20 19:33 105 16 30 05/04/20 19:30 108 16 119/72 100 Mechanical Ventilator 40 05/04/20 18:00 16 90/58 Mechanical Ventilator 40 05/04/20 18:00 104 16 90/58 100 Mechanical Ventilator 40 05/04/20 17:30 106 16 88/54 100 Mechanical Ventilator 40 05/04/20 17:14 100/55 05/04/20 17:13 18 100/55 Mechanical Ventilator 40 05/04/20 17:04 16 100/55 Mechanical Ventilator 40 05/04/20 17:00 104 16 100/55 100 Mechanical Ventilator 40 05/04/20 16:30 111 16 103/69 100 Mechanical Ventilator 40 05/04/20 16:00 40 05/04/20 16:00 112 05/04/20 16:00 16 111/68 Mechanical Ventilator 40 05/04/20 16:00 99.9 113 16 111/68 100 Mechanical Ventilator 40 05/04/20 16:00 Endotracheal Tube 05/04/20 16:00 113 16 111/68 100 Mechanical Ventilator 40 05/04/20 15:30 97 16 103/58 100 Mechanical Ventilator 40 05/04/20 15:00 108 16 104/65 100 Mechanical Ventilator 40 05/04/20 15:00 16 104/67 Mechanical Ventilator 40 05/04/20 14:49 109 16 30 05/04/20 14:30 112 15 104/67 100 Mechanical Ventilator 40 05/04/20 14:09 16 101/69 Mechanical Ventilator 40 05/04/20 14:00 109 16 101/69 100 Mechanical Ventilator 40 05/04/20 13:30 107 16 110/67 100 Mechanical Ventilator 40 05/04/20 13:00 16 123/67 Mechanical Ventilator 40 05/04/20 13:00 109 23 138/67 100 Mechanical Ventilator 05/04/20 12:30 105 23 123/67 100 Mechanical Ventilator Intake and Output 05/04/20 05/05/20 18:59 06:59 Intake Total 2205.5 ml 1570.0 ml Output Total 1450 ml 1660 ml Balance 755.5 ml -90.0 ml Intake Free Water 120 ml IV Total 2085.5 ml 1570.0 ml Output Urine Total 1450 ml 1660 ml # Bowel Movements 5 4 Current Medications Medications (Trade) Dose Ordered Sig/Damino Route PRN Reason Start Time Stop Time Status Last Admin Dose Admin Acetaminophen (Tylenol) 650 mg Q4H PRN GT fever 05/02/20 12:45 06/01/20 12:44 05/05/20 04:49 Albuterol/ Ipratropium (Albuterol/ Ipratropium) 3 ml Q4H PRN HHN Shortness of Breath 05/02/20 12:45 05/07/20 12:44 Aspirin (ASA) 81 mg DAILY GT 05/05/20 09:00 06/19/20 08:59 05/05/20 08:55 Chlorhexidine Gluconate (Marci-Hex 2%) 1 applic DAILY@2000 TOPIC 05/03/20 20:00 08/01/20 19:59 05/04/20 20:20 Fentanyl Citrate 250 ml @ 0 mls/hr Q24H IV 05/03/20 22:03 08/01/20 22:02 05/05/20 08:17 Heparin Sodium (Porcine) (Heparin 5000 units/ml) 5,000 units EVERY 12 HOURS SUBQ 05/02/20 21:00 06/16/20 20:59 05/03/20 20:55 Levetiracetam (Keppra) 700 mg Q12HR GT 05/02/20 21:00 06/01/20 20:59 05/05/20 08:55 Lorazepam (Ativan 2mg/ml 1ml) 2 mg Q2H PRN IV For Anxiety 05/02/20 12:45 05/09/20 12:44 05/05/20 11:07 Meropenem 1 gm/ Sodium Chloride 55 ml @ 110 mls/hr Q8HR IVPB 05/02/20 15:00 05/07/20 14:59 05/05/20 05:33 Midodrine (Pro-Amatine) 10 mg Q8HR GT 05/04/20 22:00 08/02/20 21:59 05/05/20 05:33 Morphine Sulfate (Morphine Sulfate) 4 mg Q4H PRN IVP Severe Pain (Pain Scale 7-10) 05/02/20 12:45 05/09/20 12:44 Norepinephrine Bitartrate 250 ml @ 0 mls/hr Q24H IV 05/02/20 12:48 07/31/20 12:47 05/05/20 04:49 Ondansetron HCl (Zofran) 4 mg Q6H PRN IVP Nausea & Vomiting 05/02/20 12:45 06/01/20 12:44 Pantoprazole (Protonix) 40 mg Q12HR IVP 05/04/20 21:00 06/02/20 08:59 05/05/20 08:54 Polyethylene Glycol (Miralax) 17 gm DAILYPRN PRN GT Constipation 05/02/20 12:45 06/01/20 12:44 Potassium Chloride 10 meq/ Dextrose/Sodium Chloride 1,005 ml @ 75 mls/hr [id number] IV 05/04/20 16:00 06/03/20 15:59 05/05/20 04:49 Potassium Phosphate 20 mm/ Sodium Chloride 281.6667 ml @ 46.944 m... ONCE ONCE IV 05/05/20 09:00 05/05/20 14:59 05/05/20 08:55 Potassium Chloride 100 ml @ 50 mls/hr Q2H IVPB 05/05/20 07:00 05/05/20 12:59 05/05/20 11:46 Valproic Acid (Depakene) 500 mg DAILY GT 05/06/20 09:00 06/02/20 08:59 Vancomycin HCl (Vanco pharmacy to dose) 1 ea DAILY PRN MISC Per rx protocol 05/05/20 09:45 06/04/20 09:44 Vancomycin HCl 750 mg/Sodium Chloride 275 ml @ 183.333 mls/hr Q12HR@0000,1200 IVPB 05/05/20 12:00 05/10/20 11:59 Laboratory Tests 05/05/20 03:10: White Blood Count 10.7, Red Blood Count 2.73L, Hemoglobin 8.4L, Hematocrit 25.5L , Mean Corpuscular Volume 94, Mean Corpuscular Hemoglobin 30.8, Mean Corpuscular Hemoglobin Concent 32.9, Red Cell Distribution Width 11.5L, Platelet Count 97L, Mean Platelet Volume 8.9, Neutrophils (%) (Auto) , Lymphocytes (%) (Auto) , Monocytes (%) (Auto) , Eosinophils (%) (Auto) , Basophils (%) (Auto) , Sodium Level 143, Potassium Level 2.6*L, Chloride Level 109H, Carbon Dioxide Level 25, Anion Gap 9, Blood Urea Nitrogen 6L, Creatinine 0.9, Estimat Glomerular Filtration Rate > 60, Glucose Level 93, Uric Acid 4.3, Calcium Level 7.5L, Phosphorus Level 1.7L, Magnesium Level 1.7L, Iron Level 30L , Total Iron Binding Capacity 73L, Percent Iron Saturation 41, Unsaturated Iron Binding 43L, Ferritin 329, Total Bilirubin 0.5, Aspartate Amino Transf (AST/SGOT ) 22, Alanine Aminotransferase (ALT/SGPT) 35, Alkaline Phosphatase 58, Troponin I 0.015, C-Reactive Protein, Quantitative 28.8H, Pro-B-Type Natriuretic Peptide 2250H, Total Protein 5.2L, Albumin 1.8L, Globulin 3.4, Albumin/Globulin Ratio 0.5L, Triglycerides Level 80, Cholesterol Level 77, LDL Cholesterol 46, HDL Cholesterol 19L, Cholesterol/HDL Ratio 4.1, Vitamin B12 Level 1057H, Folate 18.8 , Thyroid Stimulating Hormone (TSH) 0.602 05/05/20 08:18: Arterial Blood pH 7.261L, Arterial Blood Partial Pressure CO2 44.7, Arterial Blood Partial Pressure O2 127.5H, Arterial Blood HCO3 19.7L, Arterial Blood Oxygen Saturation 97.6, Arterial Blood Base Excess -7.0L, Nicolas Test Positive Height (Feet): 5 Height (Inches): 8.00 Weight (Pounds): 133 General Appearance: no apparent distress EENT: other - Intubated on mechanical ventilation Cardiovascular: tachycardia Respiratory/Chest: decreased breath sounds Abdomen: distended Kin Bustillo MD May 05, 2020 12:01
[2020-05-05] MEDS: Vancomycin 750 MG in NS 275 ML IVPB SCH (12:18)
--- NOTE | 2020-05-05 19:08 | Internal Med Progress Note ---
Subjective Date of Service: May 05, 2020 Physician Name Cisneros,Obey Attending Physician Marky Go MD Current Medications Medications (Trade) Dose Ordered Sig/Damion Route PRN Reason Start Time Stop Time Status Last Admin Dose Admin Acetaminophen (Tylenol) 650 mg Q4H PRN GT fever 05/02/20 12:45 06/01/20 12:44 05/05/20 16:42 Albuterol/ Ipratropium (Albuterol/ Ipratropium) 3 ml Q4H PRN HHN Shortness of Breath 05/02/20 12:45 05/07/20 12:44 Aspirin (ASA) 81 mg DAILY GT 05/05/20 09:00 06/19/20 08:59 05/05/20 08:55 Chlorhexidine Gluconate (Marci-Hex 2%) 1 applic DAILY@2000 TOPIC 05/03/20 20:00 08/01/20 19:59 05/04/20 20:20 Fentanyl Citrate 250 ml @ 0 mls/hr Q24H IV 05/03/20 22:03 08/01/20 22:02 05/05/20 17:21 Heparin Sodium (Porcine) (Heparin 5000 units/ml) 5,000 units EVERY 12 HOURS SUBQ 05/02/20 21:00 06/16/20 20:59 05/03/20 20:55 Levetiracetam (Keppra) 700 mg Q12HR GT 05/02/20 21:00 06/01/20 20:59 05/05/20 08:55 Lorazepam (Ativan 2mg/ml 1ml) 2 mg Q2H PRN IV For Anxiety 05/02/20 12:45 05/09/20 12:44 05/05/20 13:41 Meropenem 1 gm/ Sodium Chloride 55 ml @ 110 mls/hr Q8HR IVPB 05/02/20 15:00 05/07/20 14:59 05/05/20 13:28 Midodrine (Pro-Amatine) 10 mg Q8HR GT 05/04/20 22:00 08/02/20 21:59 05/05/20 13:27 Morphine Sulfate (Morphine Sulfate) 4 mg Q4H PRN IVP Severe Pain (Pain Scale 7-10) 05/02/20 12:45 05/09/20 12:44 Norepinephrine Bitartrate 250 ml @ 0 mls/hr Q24H IV 05/02/20 12:48 07/31/20 12:47 05/05/20 13:29 Ondansetron HCl (Zofran) 4 mg Q6H PRN IVP Nausea & Vomiting 05/02/20 12:45 06/01/20 12:44 Pantoprazole (Protonix) 40 mg Q12HR IVP 05/04/20 21:00 06/02/20 08:59 05/05/20 08:54 Polyethylene Glycol (Miralax) 17 gm DAILYPRN PRN GT Constipation 05/02/20 12:45 06/01/20 12:44 Potassium Chloride 10 meq/ Dextrose/Sodium Chloride 1,005 ml @ 75 mls/hr [id number] IV 05/04/20 16:00 06/03/20 15:59 05/05/20 18:21 Valproic Acid (Depakene) 500 mg DAILY GT 05/06/20 09:00 06/02/20 08:59 Vancomycin HCl ([facility] pharmacy to dose) 1 ea DAILY PRN MISC Per rx protocol 05/05/20 09:45 06/04/20 09:44 Vancomycin HCl 750 mg/Sodium Chloride 275 ml @ 183.333 mls/hr Q12HR@0000,1200 IVPB 05/05/20 12:00 05/10/20 11:59 05/05/20 12:18 Allergies: Coded Allergies: DIPHENHYDRAMINE (Verified Allergy, Unknown, 02/27/20) ROS Limited/Unobtainable: Yes Subjective 59 YO M admitted with respiratory failure. Now pneumonia. Intubated and sedated. Cover for Int Faraz-Dr Go. ICU Objective Last Vital Signs Date Time Temp Pulse Resp B/P (MAP) Pulse Ox O2 Delivery O2 Flow Rate FiO2 05/05/20 17:21 16 95/57 Mechanical Ventilator 30 05/05/20 17:12 98.9 05/05/20 15:27 88 05/05/20 12:00 100 05/02/20 14:20 15.0 Laboratory Tests Test 05/05/20 03:10 05/05/20 08:18 White Blood Count 10.7 K/UL (4.8-10.8) Red Blood Count 2.73 M/UL (4.70-6.10) L Hemoglobin 8.4 G/DL (14.2-18.0) L Hematocrit 25.5 % (42.0-52.0) L Mean Corpuscular Volume 94 FL (80-99) Mean Corpuscular Hemoglobin 30.8 PG (27.0-31.0) Mean Corpuscular Hemoglobin Concent 32.9 G/DL (32.0-36.0) Red Cell Distribution Width 11.5 % (11.6-14.8) L Platelet Count 97 K/UL (150-450) L Mean Platelet Volume 8.9 FL (6.5-10.1) Neutrophils (%) (Auto) % (45.0-75.0) Lymphocytes (%) (Auto) % (20.0-45.0) Monocytes (%) (Auto) % (1.0-10.0) Eosinophils (%) (Auto) % (0.0-3.0) Basophils (%) (Auto) % (0.0-2.0) Sodium Level 143 MMOL/L (136-145) Potassium Level 2.6 MMOL/L (3.5-5.1) *L Chloride Level 109 MMOL/L (98-107) H Carbon Dioxide Level 25 MMOL/L (21-32) Anion Gap 9 mmol/L (5-15) Blood Urea Nitrogen 6 mg/dL (7-18) L Creatinine 0.9 MG/DL (0.55-1.30) Estimat Glomerular Filtration Rate > 60 mL/min (>60) Glucose Level 93 MG/DL (74-106) Uric Acid 4.3 MG/DL (2.6-7.2) Calcium Level 7.5 MG/DL (8.5-10.1) L Phosphorus Level 1.7 MG/DL (2.5-4.9) L Magnesium Level 1.7 MG/DL (1.8-2.4) L Iron Level 30 ug/dL (50-175) L Total Iron Binding Capacity 73 ug/dL (250-450) L Percent Iron Saturation 41 % (15-50) Unsaturated Iron Binding 43 ug/dL (112-346) L Ferritin 329 NG/ML (8-388) Total Bilirubin 0.5 MG/DL (0.2-1.0) Aspartate Amino Transf (AST/SGOT) 22 U/L (15-37) Alanine Aminotransferase (ALT/SGPT) 35 U/L (12-78) Alkaline Phosphatase 58 U/L (46-116) Troponin I 0.015 ng/mL (0.000-0.056) C-Reactive Protein, Quantitative 28.8 mg/dL (0.00-0.90) H Pro-B-Type Natriuretic Peptide 2250 pg/mL (0-125) H Total Protein 5.2 G/DL (6.4-8.2) L Albumin 1.8 G/DL (3.4-5.0) L Globulin 3.4 g/dL Albumin/Globulin Ratio 0.5 (1.0-2.7) L Triglycerides Level 80 MG/DL (30-150) Cholesterol Level 77 MG/DL (< 200) LDL Cholesterol 46 mg/dL (<100) HDL Cholesterol 19 MG/DL (40-60) L Cholesterol/HDL Ratio 4.1 (3.3-4.4) Vitamin B12 Level 1057 PG/ML (193-986) H Folate 18.8 NG/ML (8.6-58.9) Thyroid Stimulating Hormone (TSH) 0.602 uiU/mL (0.358-3.740) Arterial Blood pH 7.261 (7.350-7.450) Arterial Blood Partial Pressure CO2 44.7 mmHg (35.0-45.0) Arterial Blood Partial Pressure O2 127.5 mmHg (75.0-100.0) H Arterial Blood HCO3 19.7 mmol/L (22.0-26.0) L Arterial Blood Oxygen Saturation 97.6 % (95-100) Arterial Blood Base Excess -7.0 (-2-2) L Nicolas Test Positive Intake and Output 05/04/20 05/05/20 19:00 07:00 Intake Total 2145.0 ml 1705.0 ml Output Total 1500 ml 1720 ml Balance 645.0 ml -15.0 ml Intake Free Water 120 ml IV Total 2025.0 ml 1705.0 ml Output Urine Total 1500 ml 1720 ml # Bowel Movements 5 4 Objective PHYSICAL EXAMINATION: GENERAL: The patient is a thin-appearing male, in severe respiratory distress. HEENT: Eyes, pupils equal and responsive to light and accommodation. Extraocular movements are intact. NECK: Supple. No lymphadenopathy. CHEST: Mech Vent; Decreased breath sounds bilaterally without rales. CARDIOVASCULAR: Tachycardic, regular rhythm. S1 and S2 are normal without murmurs, rubs, or gallops. ABDOMEN: Soft, nontender, and nondistended. Positive bowel sounds. No evidence of hepatosplenomegaly. Currently, no rebound or guarding noted. EXTREMITIES: Negative for clubbing, cyanosis, or edema. RECTAL/GENITAL: Not performed. NEUROLOGICAL: Unable to assess Assessment/Plan Assessment/Plan ASSESSMENT: This is a 59-year-old male. 1. Shortness of breath. 2. Hypoxia. 3. Right lower lobe pneumonia=enterobacter, pseudamonas, and staph aureus 4. Acute respiratory failure. 5. History of cerebrovascular accident. 6. Seizure disorder. 7. Functional quadriplegia. 8. Schizophrenia. 9. Dysphagia. 10. Urinary tract infection=proteus mirabilis TREATMENT: 1. Respiratory failure/pneumonia. Intubated; A pulmonary consultation has been obtained with Dr. Ana Maria Hansen. The patient was febrile on admission. Antibiotics= vancomycin and meropenem. We will follow recommendations of Pulmonary. 2. Seizure disorder. Continue Keppra, Depakote as above. 3. Functional quadriplegia. 4. Schizophrenia. Continue Risperdal as above. 5. Dysphagia. The patient is status post PEG. Obey Cisneros MD May 05, 2020 19:08
[2020-05-05] MEDS: Dyna-Hex 2% Top Sol 2oz TOPIC SCH (21:24)
[2020-05-06] VITALS (47 sets, daily range): BP systolic 77–141; BP diastolic 22–105
[2020-05-06] MEDS: Vancomycin 750 MG in NS 275 ML IVPB SCH ×2 (00:19→12:56)
[2020-05-06] MEDS: fentaNYL 2500mcg/NS 250ml 250 ML IV SCH ×3 (01:39→21:31)
[2020-05-06] MEDS: Norepinephrine 4mg/NS Premix 250 ML IV SCH ×2 (04:30→21:31)
[2020-05-06 04:56] LABS: BASOPHILS % (AUTO) 1.1 % (0.0-2.0); EOSINOPHILS % (AUTO) 0.2 % (0.0-3.0); HEMATOCRIT 27.8 % (42.0-52.0); HEMOGLOBIN 9.3 G/DL (14.2-18.0); LYMPHOCYTES % (AUTO) 14.1 % (20.0-45.0); MEAN CORPUSCULAR VOLUME 93 FL (80-99); MONOCYTES % (AUTO) 7.6 % (1.0-10.0); PLATELET COUNT 111 K/UL (150-450); RED BLOOD COUNT 2.98 M/UL (4.70-6.10); WHITE BLOOD COUNT 13.2 K/UL (4.8-10.8)
[2020-05-06 05:35] LABS: ALANINE AMINOTRANSFERASE 32 U/L (12-78); ALBUMIN 1.9 G/DL (3.4-5.0); ALBUMIN/GLOBULIN RATIO 0.5 (1.0-2.7); ALKALINE PHOSPHATASE 52 U/L (46-116); ANION GAP 12 mmol/L (5-15); ASPARTATE AMINO TRANSFERASE 22 U/L (15-37); BILIRUBIN,TOTAL 0.5 MG/DL (0.2-1.0); BLOOD UREA NITROGEN 4 mg/dL (7-18); CALCIUM 7.8 MG/DL (8.5-10.1); CARBON DIOXIDE 23 MMOL/L (21-32); CHLORIDE 110 MMOL/L (98-107); CREATININE 0.9 MG/DL (0.55-1.30); POTASSIUM 3.4 MMOL/L (3.5-5.1); SODIUM 145 MMOL/L (136-145)
[2020-05-06] MEDS: Meropenem 1 GM in NS 55 ML IVPB SCH ×3 (05:38→21:32)
[2020-05-06] MEDS: Midodrine 10mg tab GT SCH ×3 (05:38→21:32)
[2020-05-06] MEDS: Potassium Chloride 10 MEQ in D5 1/2NS 1,000 ML IV SCH ×2 (08:40→21:30)
[2020-05-06] MEDS: Valproic Acid 250mg/5ml Liquid GT SCH (08:41)
[2020-05-06] MEDS: levETIRAcetam 500mg/5ml Liquid GT SCH ×2 (08:41→20:48)
[2020-05-06] MEDS: Pantoprazole Inj IVP SCH ×2 (08:41→20:48)
[2020-05-06] MEDS: Aspirin Baby 81mg GT SCH (08:41)
[2020-05-06] MEDS: LORazepam Inj 2mg/ml 1ml IV PRN (08:42)
[2020-05-06] MEDS: Heparin 5000 units/ml inj SUBQ SCH ×2 (08:42→20:50)
[2020-05-06] MEDS ORDERED: Tubing IV Secondary IV ONE (09:02)
[2020-05-06] MEDS ORDERED: NS 275ml ONE (09:02)
[2020-05-06] MEDS ORDERED: D5 1/2NS 1000ml IV ONE (09:02)
[2020-05-06 09:22] LABS: PHOSPHORUS 2.5 MG/DL (2.5-4.9)
--- NOTE | 2020-05-06 09:32 | Diagnostic Imaging Report ---
Indication: Dyspnea Technique: One view of the chest Comparison: 05/05/2020 Findings: Dense consolidation of the right mid and lower lung, moderate size right-sided pleural effusion versus thickening are unchanged. Left lung and pleural space remain clear allowing for differences in degree of inspiration. Stable satisfactory positions of endotracheal tube and right jugular central venous catheter. Impression: Unchanged, over one day, findings as above.
--- NOTE | 2020-05-06 09:56 | Pulmonolgy Critical Care Note ---
Critical Care - Asmt/Plan Problems: (1) Acute respiratory failure (2) Sepsis (3) Nosocomial pneumonia (4) Seizure disorder (5) Dehydration (6) COPD (chronic obstructive pulmonary disease) (7) [facility] resident (8) History of CVA (cerebrovascular accident) Respiratory: monitor respiratory rate, adjust FIO2, CXR Cardiac: start pressors, continue pressors, continue to monitor HR/BP Renal: keep IV fluid, check electrolytes Gastrointestinal: continue feedings/current rate Endocrine: monitor blood sugar Hematologic: transfuse if hgb<8.5 Neurologic: PRN Ativan, PRN Morphine, keep patient comfortable Affect: PRN ativan Prophylaxis: Protonix Time Spent (Minutes): 40 Notes Reviewed: cardroom hand, cardio, 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, consultants, case investigatorcategory development manager - Objective Last 24 Hour Vital Signs Date Time Temp Pulse Resp B/P (MAP) Pulse Ox O2 Delivery O2 Flow Rate FiO2 05/06/20 07:29 122 23 30 05/06/20 07:00 122 22 127/77 99 Mechanical Ventilator 30 05/06/20 07:00 22 127/77 Mechanical Ventilator 40 05/06/20 06:30 118 20 05/06/20 06:00 20 118/69 Mechanical Ventilator 40 05/06/20 06:00 118 20 118/69 99 Mechanical Ventilator 30 05/06/20 05:00 115 18 120/65 100 Mechanical Ventilator 30 05/06/20 05:00 18 120/65 Mechanical Ventilator 40 05/06/20 04:30 118/72 05/06/20 04:00 17 118/72 Mechanical Ventilator 30 05/06/20 04:00 30 05/06/20 04:00 107 17 118/72 99 Mechanical Ventilator 30 05/06/20 04:00 107 05/06/20 04:00 Endotracheal Tube 05/06/20 03:58 110 20 30 05/06/20 03:00 16 132/80 Mechanical Ventilator 30 05/06/20 03:00 122 16 132/80 98 Mechanical Ventilator 30 05/06/20 02:30 88 18 141/89 100 Mechanical Ventilator 30 05/06/20 02:00 16 141/89 Mechanical Ventilator 30 05/06/20 02:00 94 16 124/79 100 Mechanical Ventilator 30 05/06/20 01:39 16 107/72 30 05/06/20 01:30 94 16 107/71 100 Mechanical Ventilator 30 05/06/20 01:00 16 97/65 Mechanical Ventilator 30 05/06/20 01:00 97 16 97/66 100 Mechanical Ventilator 30 05/06/20 00:30 133 16 111/66 94 Mechanical Ventilator 30 05/06/20 00:00 Endotracheal Tube 05/06/20 00:00 90 17 30 05/06/20 00:00 16 111/47 Mechanical Ventilator 30 05/06/20 00:00 95 16 104/62 100 Mechanical Ventilator 30 05/05/20 23:30 112 16 104/62 100 Mechanical Ventilator 30 05/05/20 23:00 16 104/62 Mechanical Ventilator 30 05/05/20 23:00 87 15 94/64 98 Mechanical Ventilator 30 05/05/20 22:30 93 16 97/67 94 Mechanical Ventilator 30 05/05/20 22:00 16 91/57 Mechanical Ventilator 30 05/05/20 22:00 30 05/05/20 22:00 82 16 92/59 99 Mechanical Ventilator 30 05/05/20 21:30 89 16 91/57 100 Mechanical Ventilator 30 05/05/20 21:00 16 91/57 Mechanical Ventilator 30 05/05/20 21:00 101 16 95/57 100 Mechanical Ventilator 30 05/05/20 20:30 92 16 138/78 100 Mechanical Ventilator 30 05/05/20 20:00 100.0 91 16 140/87 100 Mechanical Ventilator 30 05/05/20 20:00 Endotracheal Tube 05/05/20 20:00 90 05/05/20 20:00 30 05/05/20 19:50 90 16 30 05/05/20 19:30 90 16 137/85 100 Mechanical Ventilator 30 05/05/20 19:00 16 138/78 Mechanical Ventilator 30 05/05/20 19:00 87 16 138/82 100 Mechanical Ventilator 30 05/05/20 18:30 92 16 127/78 100 Mechanical Ventilator 30 05/05/20 18:00 94 16 115/71 100 Mechanical Ventilator 30 05/05/20 18:00 16 127/78 Mechanical Ventilator 30 05/05/20 17:30 96 16 107/63 100 Mechanical Ventilator 30 05/05/20 17:21 16 95/57 Mechanical Ventilator 30 05/05/20 17:12 98.9 05/05/20 17:00 88 16 95/57 99 Mechanical Ventilator 30 05/05/20 17:00 16 107/63 Mechanical Ventilator 30 05/05/20 16:30 103 16 114/76 100 Mechanical Ventilator 30 05/05/20 16:00 98.9 87 16 99/61 100 Mechanical Ventilator 30 05/05/20 16:00 Endotracheal Tube 05/05/20 16:00 16 114/76 Mechanical Ventilator 30 05/05/20 16:00 30 05/05/20 16:00 91 05/05/20 15:30 89 21 135/86 100 Mechanical Ventilator 30 05/05/20 15:27 88 19 30 05/05/20 15:00 84 18 136/77 100 Mechanical Ventilator 30 05/05/20 15:00 20 135/86 Mechanical Ventilator 30 05/05/20 14:30 94 16 135/79 100 Mechanical Ventilator 30 05/05/20 14:00 93 16 112/70 100 Mechanical Ventilator 30 05/05/20 14:00 16 112/70 Mechanical Ventilator 30 05/05/20 13:30 98 16 137/86 100 Mechanical Ventilator 30 05/05/20 13:29 143/89 05/05/20 13:00 16 143/89 Mechanical Ventilator 30 05/05/20 13:00 97 16 143/89 100 Mechanical Ventilator 30 05/05/20 12:30 97 16 141/85 100 Mechanical Ventilator 30 05/05/20 12:00 96 05/05/20 12:00 99.0 99 16 132/82 100 Mechanical Ventilator 30 05/05/20 12:00 30 05/05/20 12:00 16 132/82 Mechanical Ventilator 30 05/05/20 12:00 Endotracheal Tube 05/05/20 11:30 99 16 113/75 100 Mechanical Ventilator 30 05/05/20 11:00 101 18 130/60 99 Mechanical Ventilator 30 05/05/20 11:00 16 130/60 Mechanical Ventilator 30 05/05/20 10:52 105 18 30 05/05/20 10:30 105 16 111/71 100 Mechanical Ventilator 30 05/05/20 10:00 16 110/75 Mechanical Ventilator 30 05/05/20 10:00 108 16 110/75 100 Mechanical Ventilator 30 Status: awake, sedated Condition: critical HEENT: atraumatic, normocephalic Neck: full ROM Lungs: rales, rhonchi Heart: HR/BP stable Abdomen: soft, non-tender Extremities: no C/C/E Critical Care - Subjective ROS Limited/Unobtainable: Yes Condition: critical EKG Rhythm: Sinus Rhythm FI02: 30 Vent Support Breath Rate: 16 Vent Support Mode: AC Vent Tidal Volume: 600 Sputum Amount: Moderate PEEP: 0.0 PIP: 30 I&O: Intake and Output 05/05/20 05/06/20 19:00 07:00 Intake Total 2915.1917 ml 1733.5 ml Output Total 2240 ml 2580 ml Balance 675.1917 ml -846.5 ml Intake Free Water 150 ml IV Total 2765.1917 ml 1733.5 ml Output Urine Total 2240 ml 2580 ml # Bowel Movements 2 CXR: extensive RLL dense infiltrate unchanged. ET-Tube: 7.5 ET Position: 24 Labs: Laboratory Tests Test 05/06/20 02:50 White Blood Count 13.2 K/UL (4.8-10.8) H Red Blood Count 2.98 M/UL (4.70-6.10) L Hemoglobin 9.3 G/DL (14.2-18.0) L Hematocrit 27.8 % (42.0-52.0) L Mean Corpuscular Volume 93 FL (80-99) Mean Corpuscular Hemoglobin 31.2 PG (27.0-31.0) H Mean Corpuscular Hemoglobin Concent 33.4 G/DL (32.0-36.0) Red Cell Distribution Width 12.0 % (11.6-14.8) Platelet Count 111 K/UL (150-450) L Mean Platelet Volume 8.7 FL (6.5-10.1) Neutrophils (%) (Auto) 77.0 % (45.0-75.0) H Lymphocytes (%) (Auto) 14.1 % (20.0-45.0) L Monocytes (%) (Auto) 7.6 % (1.0-10.0) Eosinophils (%) (Auto) 0.2 % (0.0-3.0) Basophils (%) (Auto) 1.1 % (0.0-2.0) Sodium Level 145 MMOL/L (136-145) Potassium Level 3.4 MMOL/L (3.5-5.1) L Chloride Level 110 MMOL/L (98-107) H Carbon Dioxide Level 23 MMOL/L (21-32) Anion Gap 12 mmol/L (5-15) Blood Urea Nitrogen 4 mg/dL (7-18) L Creatinine 0.9 MG/DL (0.55-1.30) Estimat Glomerular Filtration Rate > 60 mL/min (>60) Glucose Level 92 MG/DL (74-106) Calcium Level 7.8 MG/DL (8.5-10.1) L Phosphorus Level 2.5 MG/DL (2.5-4.9) Magnesium Level 1.6 MG/DL (1.8-2.4) L Total Bilirubin 0.5 MG/DL (0.2-1.0) Aspartate Amino Transf (AST/SGOT) 22 U/L (15-37) Alanine Aminotransferase (ALT/SGPT) 32 U/L (12-78) Alkaline Phosphatase 52 U/L (46-116) Pro-B-Type Natriuretic Peptide 2997 pg/mL (0-125) H Total Protein 5.6 G/DL (6.4-8.2) L Albumin 1.9 G/DL (3.4-5.0) L Globulin 3.7 g/dL Albumin/Globulin Ratio 0.5 (1.0-2.7) L Valproic Acid (Depakene) Level < 3 MCG/ML (50-100) L Ana Maria Hansen MD May 06, 2020 09:56
[2020-05-06] MEDS: Acetaminophen 650mg/20.3ml GT PRN ×2 (10:18→18:16)
--- NOTE | 2020-05-06 13:11 | Nephrology Progress Note ---
Assessment/Plan Problem List: (1) Electrolyte imbalance (2) Dehydration (3) Acute respiratory failure (4) Seizure disorder Assessment Severe electrolyte abnormalities Low magnesium, low phosphorus, low potassium, Other active conditions: (1) Acute respiratory failure (2) Sepsis (3) Nosocomial pneumonia (4) Seizure disorder (5) Dehydration (6) COPD (chronic obstructive pulmonary disease) (7) care home resident (8) History of CVA (cerebrovascular accident) Plan Discussed with RN mag , phosphorus and potassium supplement ordered Monitor electrolytes Continue per consultants Subjective ROS Limited/Unobtainable: Yes Objective Objective Last 24 Hour Vital Signs Date Time Temp Pulse Resp B/P (MAP) Pulse Ox O2 Delivery O2 Flow Rate FiO2 05/06/20 12:00 99.4 108 14 94/63 100 Mechanical Ventilator 30 05/06/20 12:00 109 05/06/20 12:00 Endotracheal Tube 05/06/20 12:00 30 05/06/20 11:00 100.1 112 15 86/54 100 Mechanical Ventilator 30 05/06/20 11:00 15 86/54 Mechanical Ventilator 30 05/06/20 10:48 100.4 05/06/20 10:30 100.4 118 18 101/67 100 Mechanical Ventilator 30 05/06/20 10:19 14 94/65 Mechanical Ventilator 15.0 30 05/06/20 10:00 106 14 94/65 100 Mechanical Ventilator 30 05/06/20 10:00 16 94/65 Mechanical Ventilator 30 05/06/20 09:55 105 14 102/52 100 Mechanical Ventilator 30 05/06/20 09:30 105 14 102/52 100 Mechanical Ventilator 30 05/06/20 09:00 19 122/65 Mechanical Ventilator 30 05/06/20 09:00 106 21 92/58 99 Mechanical Ventilator 30 05/06/20 08:30 119 21 122/62 99 Mechanical Ventilator 30 05/06/20 08:00 Endotracheal Tube 05/06/20 08:00 125 22 127/77 99 Mechanical Ventilator 30 05/06/20 08:00 21 115/68 Mechanical Ventilator 30 05/06/20 08:00 30 05/06/20 08:00 125 21 115/68 99 Mechanical Ventilator 30 05/06/20 08:00 105 05/06/20 07:30 125 22 129/72 99 Mechanical Ventilator 30 05/06/20 07:29 122 23 30 05/06/20 07:00 122 22 127/77 99 Mechanical Ventilator 30 05/06/20 07:00 22 127/77 Mechanical Ventilator 40 05/06/20 06:30 118 20 05/06/20 06:00 20 118/69 Mechanical Ventilator 40 05/06/20 06:00 118 20 118/69 99 Mechanical Ventilator 30 05/06/20 05:00 115 18 120/65 100 Mechanical Ventilator 30 05/06/20 05:00 18 120/65 Mechanical Ventilator 40 05/06/20 04:30 118/72 05/06/20 04:00 17 118/72 Mechanical Ventilator 30 05/06/20 04:00 30 05/06/20 04:00 107 17 118/72 99 Mechanical Ventilator 30 05/06/20 04:00 107 05/06/20 04:00 Endotracheal Tube 05/06/20 03:58 110 20 30 05/06/20 03:00 16 132/80 Mechanical Ventilator 30 05/06/20 03:00 122 16 132/80 98 Mechanical Ventilator 30 05/06/20 02:30 88 18 141/89 100 Mechanical Ventilator 30 05/06/20 02:00 16 141/89 Mechanical Ventilator 30 05/06/20 02:00 94 16 124/79 100 Mechanical Ventilator 30 05/06/20 01:39 16 107/72 30 05/06/20 01:30 94 16 107/71 100 Mechanical Ventilator 30 05/06/20 01:00 16 97/65 Mechanical Ventilator 30 05/06/20 01:00 97 16 97/66 100 Mechanical Ventilator 30 05/06/20 00:30 133 16 111/66 94 Mechanical Ventilator 30 05/06/20 00:00 Endotracheal Tube 05/06/20 00:00 90 17 30 05/06/20 00:00 16 111/47 Mechanical Ventilator 30 05/06/20 00:00 95 16 104/62 100 Mechanical Ventilator 30 05/05/20 23:30 112 16 104/62 100 Mechanical Ventilator 30 05/05/20 23:00 16 104/62 Mechanical Ventilator 30 05/05/20 23:00 87 15 94/64 98 Mechanical Ventilator 30 05/05/20 22:30 93 16 97/67 94 Mechanical Ventilator 30 05/05/20 22:00 16 91/57 Mechanical Ventilator 30 05/05/20 22:00 30 05/05/20 22:00 82 16 92/59 99 Mechanical Ventilator 30 05/05/20 21:30 89 16 91/57 100 Mechanical Ventilator 30 05/05/20 21:00 16 91/57 Mechanical Ventilator 30 05/05/20 21:00 101 16 95/57 100 Mechanical Ventilator 30 05/05/20 20:30 92 16 138/78 100 Mechanical Ventilator 30 05/05/20 20:00 100.0 91 16 140/87 100 Mechanical Ventilator 30 05/05/20 20:00 Endotracheal Tube 05/05/20 20:00 90 05/05/20 20:00 30 05/05/20 19:50 90 16 30 05/05/20 19:30 90 16 137/85 100 Mechanical Ventilator 30 05/05/20 19:00 16 138/78 Mechanical Ventilator 30 05/05/20 19:00 87 16 138/82 100 Mechanical Ventilator 30 05/05/20 18:30 92 16 127/78 100 Mechanical Ventilator 30 05/05/20 18:00 94 16 115/71 100 Mechanical Ventilator 30 05/05/20 18:00 16 127/78 Mechanical Ventilator 30 05/05/20 17:30 96 16 107/63 100 Mechanical Ventilator 30 05/05/20 17:21 16 95/57 Mechanical Ventilator 30 05/05/20 17:00 88 16 95/57 99 Mechanical Ventilator 30 05/05/20 17:00 16 107/63 Mechanical Ventilator 30 05/05/20 16:30 103 16 114/76 100 Mechanical Ventilator 30 05/05/20 16:00 98.9 87 16 99/61 100 Mechanical Ventilator 30 05/05/20 16:00 Endotracheal Tube 05/05/20 16:00 16 114/76 Mechanical Ventilator 30 05/05/20 16:00 30 05/05/20 16:00 91 05/05/20 15:30 89 21 135/86 100 Mechanical Ventilator 30 05/05/20 15:27 88 19 30 05/05/20 15:00 84 18 136/77 100 Mechanical Ventilator 30 05/05/20 15:00 20 135/86 Mechanical Ventilator 30 05/05/20 14:30 94 16 135/79 100 Mechanical Ventilator 30 05/05/20 14:00 93 16 112/70 100 Mechanical Ventilator 30 05/05/20 14:00 16 112/70 Mechanical Ventilator 30 05/05/20 13:30 98 16 137/86 100 Mechanical Ventilator 30 05/05/20 13:29 143/89 Intake and Output 05/05/20 05/06/20 19:00 07:00 Intake Total 2915.1917 ml 1733.5 ml Output Total 2240 ml 2580 ml Balance 675.1917 ml -846.5 ml Intake Free Water 150 ml IV Total 2765.1917 ml 1733.5 ml Output Urine Total 2240 ml 2580 ml # Bowel Movements 2 Laboratory Tests 05/06/20 02:50: White Blood Count 13.2H, Red Blood Count 2.98L, Hemoglobin 9.3L, Hematocrit 27.8L, Mean Corpuscular Volume 93, Mean Corpuscular Hemoglobin 31.2H, Mean Corpuscular Hemoglobin Concent 33.4, Red Cell Distribution Width 12.0, Platelet Count 111L, Mean Platelet Volume 8.7, Neutrophils (%) (Auto) 77.0H, Lymphocytes (%) (Auto) 14.1L, Monocytes (%) (Auto) 7.6, Eosinophils (%) (Auto) 0.2, Basophils (%) (Auto) 1.1, Sodium Level 145, Potassium Level 3.4L, Chloride Level 110H, Carbon Dioxide Level 23, Anion Gap 12, Blood Urea Nitrogen 4L, Creatinine 0.9, Estimat Glomerular Filtration Rate > 60, Glucose Level 92, Calcium Level 7.8L, Phosphorus Level 2.5, Magnesium Level 1.6L, Total Bilirubin 0.5, Aspartate Amino Transf (AST/SGOT) 22, Alanine Aminotransferase (ALT/SGPT) 32, Alkaline Phosphatase 52, Pro-B-Type Natriuretic Peptide 2997H, Total Protein 5.6L, Albumin 1.9L, Globulin 3.7, Albumin/Globulin Ratio 0.5L, Valproic Acid (Depakene) Level < 3L Height (Feet): 5 Height (Inches): 8.00 Weight (Pounds): 152 General Appearance: no apparent distress EENT: other - Being vented Cardiovascular: tachycardia Respiratory/Chest: decreased breath sounds Abdomen: distended Kin Bustillo MD May 06, 2020 13:11
--- NOTE | 2020-05-06 13:58 | Infectious Diseases Prog Note ---
Assessment/Plan Assessment: Septic Shock Pneumonia- COVID 19 neg x2 (on same day) Acute hypoxic resp failure- s/p intubation 05/02 -05/04 CXR: Dense consolidation of the right mid and lower lung, right pleural effusion are unchanged. Left lung and pleural space remain clear. -05/02 Sp cx PsA (pham S), E. aerogenes (R Ancef; otherwise S), S. aureus ( sensi p) -05/02 CXR: There is a moderately consolidating infiltrate in the right lower lobe consistent with pneumonia. rapid COVID neg, COVI PCR neg - previously neg: -02/26 SARS-COV2 pCR neg; 02/28 SARS-COV 2 pcr neg -Bc xNTD Probable UTI -u/a wbc 10-15, nit neg, leul +2 ; ucx <10k ESBL. P. mirabilis (S Zosyn, meropenem) FEver (up to 105.3); fever curve improved but ongoing fever leukocytosis; overall improved TOMAS; SP Recent Sepsis 2ry to ESBL K.pna bacteremia and Pneumonia 02/2020 -Bcx 3/4 ESBL K.pna (S Levo, Meropenem, ZOsyn); 03/01 Bcx Neg -sp cx ESBL K.pna -02/27 sp removal PICC Line; cath tip cx Neg muscle weakness and atrophy (not characterized) psychiatric disorder dysphagia s/p GT [place] resident ( [facility]) Dementia seizure disorder Plan: -COntinue Meropenem #5 for UTI and PNA and IV Vancomycin #5 for PNA pending S. aureus sensi -05/05 SP Amikacin #4 -05/02 SP CEfepime x1 , Azithromycin x1 -f/u cx -Monitor CBC/CMP, temperatures -COVID19 neg x2; continue isolation until afebrile >72hrs -ICU/ETT/PEG care -aspiration precautions Thank you for consulting [facility]. Will continue to follow along with you. Joy troncoso RN. Subjective Allergies: Coded Allergies: DIPHENHYDRAMINE (Verified Allergy, Unknown, 02/27/20) Tm 100.9 mild leukocytosis Bcx NTD levophed down to 3 Objective Last 24 Hour Vital Signs Date Time Temp Pulse Resp B/P (MAP) Pulse Ox O2 Delivery O2 Flow Rate FiO2 05/06/20 13:30 115 20 96/46 100 Mechanical Ventilator 30 05/06/20 13:00 115 18 108/64 100 Mechanical Ventilator 30 05/06/20 12:00 99.4 108 14 94/63 100 Mechanical Ventilator 30 05/06/20 12:00 109 05/06/20 12:00 Endotracheal Tube 05/06/20 12:00 30 05/06/20 11:25 112 21 30 05/06/20 11:00 100.1 112 15 86/54 100 Mechanical Ventilator 30 05/06/20 11:00 15 86/54 Mechanical Ventilator 30 05/06/20 10:48 100.4 05/06/20 10:30 100.4 118 18 101/67 100 Mechanical Ventilator 30 05/06/20 10:19 14 94/65 Mechanical Ventilator 15.0 30 05/06/20 10:00 106 14 94/65 100 Mechanical Ventilator 30 05/06/20 10:00 16 94/65 Mechanical Ventilator 30 05/06/20 09:55 105 14 102/52 100 Mechanical Ventilator 30 05/06/20 09:30 105 14 102/52 100 Mechanical Ventilator 30 05/06/20 09:00 19 122/65 Mechanical Ventilator 30 05/06/20 09:00 106 21 92/58 99 Mechanical Ventilator 30 05/06/20 08:30 119 21 122/62 99 Mechanical Ventilator 30 05/06/20 08:00 Endotracheal Tube 05/06/20 08:00 125 22 127/77 99 Mechanical Ventilator 30 05/06/20 08:00 21 115/68 Mechanical Ventilator 30 05/06/20 08:00 30 05/06/20 08:00 125 21 115/68 99 Mechanical Ventilator 30 05/06/20 08:00 105 05/06/20 07:30 125 22 129/72 99 Mechanical Ventilator 30 05/06/20 07:29 122 23 30 05/06/20 07:00 122 22 127/77 99 Mechanical Ventilator 30 05/06/20 07:00 22 127/77 Mechanical Ventilator 40 05/06/20 06:30 118 20 05/06/20 06:00 20 118/69 Mechanical Ventilator 40 05/06/20 06:00 118 20 118/69 99 Mechanical Ventilator 30 05/06/20 05:00 115 18 120/65 100 Mechanical Ventilator 30 05/06/20 05:00 18 120/65 Mechanical Ventilator 40 05/06/20 04:30 118/72 05/06/20 04:00 17 118/72 Mechanical Ventilator 30 05/06/20 04:00 30 05/06/20 04:00 107 17 118/72 99 Mechanical Ventilator 30 05/06/20 04:00 107 05/06/20 04:00 Endotracheal Tube 05/06/20 03:58 110 20 30 05/06/20 03:00 16 132/80 Mechanical Ventilator 30 05/06/20 03:00 122 16 132/80 98 Mechanical Ventilator 30 05/06/20 02:30 88 18 141/89 100 Mechanical Ventilator 30 05/06/20 02:00 16 141/89 Mechanical Ventilator 30 05/06/20 02:00 94 16 124/79 100 Mechanical Ventilator 30 05/06/20 01:39 16 107/72 30 05/06/20 01:30 94 16 107/71 100 Mechanical Ventilator 30 05/06/20 01:00 16 97/65 Mechanical Ventilator 30 05/06/20 01:00 97 16 97/66 100 Mechanical Ventilator 30 05/06/20 00:30 133 16 111/66 94 Mechanical Ventilator 30 05/06/20 00:00 Endotracheal Tube 05/06/20 00:00 90 17 30 05/06/20 00:00 16 111/47 Mechanical Ventilator 30 05/06/20 00:00 95 16 104/62 100 Mechanical Ventilator 30 05/05/20 23:30 112 16 104/62 100 Mechanical Ventilator 30 05/05/20 23:00 16 104/62 Mechanical Ventilator 30 05/05/20 23:00 87 15 94/64 98 Mechanical Ventilator 30 05/05/20 22:30 93 16 97/67 94 Mechanical Ventilator 30 05/05/20 22:00 16 91/57 Mechanical Ventilator 30 05/05/20 22:00 30 05/05/20 22:00 82 16 92/59 99 Mechanical Ventilator 30 05/05/20 21:30 89 16 91/57 100 Mechanical Ventilator 30 05/05/20 21:00 16 91/57 Mechanical Ventilator 30 05/05/20 21:00 101 16 95/57 100 Mechanical Ventilator 30 05/05/20 20:30 92 16 138/78 100 Mechanical Ventilator 30 05/05/20 20:00 100.0 91 16 140/87 100 Mechanical Ventilator 30 05/05/20 20:00 Endotracheal Tube 05/05/20 20:00 90 05/05/20 20:00 30 05/05/20 19:50 90 16 30 05/05/20 19:30 90 16 137/85 100 Mechanical Ventilator 30 05/05/20 19:00 16 138/78 Mechanical Ventilator 30 05/05/20 19:00 87 16 138/82 100 Mechanical Ventilator 30 05/05/20 18:30 92 16 127/78 100 Mechanical Ventilator 30 05/05/20 18:00 94 16 115/71 100 Mechanical Ventilator 30 05/05/20 18:00 16 127/78 Mechanical Ventilator 30 05/05/20 17:30 96 16 107/63 100 Mechanical Ventilator 30 05/05/20 17:21 16 95/57 Mechanical Ventilator 30 05/05/20 17:00 88 16 95/57 99 Mechanical Ventilator 30 05/05/20 17:00 16 107/63 Mechanical Ventilator 30 05/05/20 16:30 103 16 114/76 100 Mechanical Ventilator 30 05/05/20 16:00 98.9 87 16 99/61 100 Mechanical Ventilator 30 05/05/20 16:00 Endotracheal Tube 05/05/20 16:00 16 114/76 Mechanical Ventilator 30 05/05/20 16:00 30 05/05/20 16:00 91 05/05/20 15:30 89 21 135/86 100 Mechanical Ventilator 30 05/05/20 15:27 88 19 30 05/05/20 15:00 84 18 136/77 100 Mechanical Ventilator 30 05/05/20 15:00 20 135/86 Mechanical Ventilator 30 05/05/20 14:30 94 16 135/79 100 Mechanical Ventilator 30 05/05/20 14:00 93 16 112/70 100 Mechanical Ventilator 30 05/05/20 14:00 16 112/70 Mechanical Ventilator 30 Height (Feet): 5 Height (Inches): 8.00 Weight (Pounds): 152 GENERAL: The patient is a thin-appearing male, in severe respiratory distress. HEENT: Eyes, pupils equal and responsive to light and accommodation. Extraocular movements are intact. NECK: Supple. No lymphadenopathy. CHEST: Mech Vent; Decreased breath sounds bilaterally without rales. CARDIOVASCULAR: Tachycardic, regular rhythm. S1 and S2 are normal without murmurs, rubs, or gallops. ABDOMEN: Soft, nontender, and nondistended. Positive bowel sounds. No evidence of hepatosplenomegaly. Currently, no rebound or guarding noted. EXTREMITIES: Negative for clubbing, cyanosis, or edema. Laboratory Tests Test 05/06/20 02:50 White Blood Count 13.2 K/UL (4.8-10.8) H Red Blood Count 2.98 M/UL (4.70-6.10) L Hemoglobin 9.3 G/DL (14.2-18.0) L Hematocrit 27.8 % (42.0-52.0) L Mean Corpuscular Volume 93 FL (80-99) Mean Corpuscular Hemoglobin 31.2 PG (27.0-31.0) H Mean Corpuscular Hemoglobin Concent 33.4 G/DL (32.0-36.0) Red Cell Distribution Width 12.0 % (11.6-14.8) Platelet Count 111 K/UL (150-450) L Mean Platelet Volume 8.7 FL (6.5-10.1) Neutrophils (%) (Auto) 77.0 % (45.0-75.0) H Lymphocytes (%) (Auto) 14.1 % (20.0-45.0) L Monocytes (%) (Auto) 7.6 % (1.0-10.0) Eosinophils (%) (Auto) 0.2 % (0.0-3.0) Basophils (%) (Auto) 1.1 % (0.0-2.0) Sodium Level 145 MMOL/L (136-145) Potassium Level 3.4 MMOL/L (3.5-5.1) L Chloride Level 110 MMOL/L (98-107) H Carbon Dioxide Level 23 MMOL/L (21-32) Anion Gap 12 mmol/L (5-15) Blood Urea Nitrogen 4 mg/dL (7-18) L Creatinine 0.9 MG/DL (0.55-1.30) Estimat Glomerular Filtration Rate > 60 mL/min (>60) Glucose Level 92 MG/DL (74-106) Calcium Level 7.8 MG/DL (8.5-10.1) L Phosphorus Level 2.5 MG/DL (2.5-4.9) Magnesium Level 1.6 MG/DL (1.8-2.4) L Total Bilirubin 0.5 MG/DL (0.2-1.0) Aspartate Amino Transf (AST/SGOT) 22 U/L (15-37) Alanine Aminotransferase (ALT/SGPT) 32 U/L (12-78) Alkaline Phosphatase 52 U/L (46-116) Pro-B-Type Natriuretic Peptide 2997 pg/mL (0-125) H Total Protein 5.6 G/DL (6.4-8.2) L Albumin 1.9 G/DL (3.4-5.0) L Globulin 3.7 g/dL Albumin/Globulin Ratio 0.5 (1.0-2.7) L Valproic Acid (Depakene) Level < 3 MCG/ML (50-100) L Current Medications Medications (Trade) Dose Ordered Sig/Damion Route PRN Reason Start Time Stop Time Status Last Admin Dose Admin Acetaminophen (Tylenol) 650 mg Q4H PRN GT fever 05/02/20 12:45 06/01/20 12:44 05/06/20 10:18 Albuterol/ Ipratropium (Albuterol/ Ipratropium) 3 ml Q4H PRN HHN Shortness of Breath 05/02/20 12:45 05/07/20 12:44 Aspirin (ASA) 81 mg DAILY GT 05/05/20 09:00 06/19/20 08:59 05/06/20 08:41 Chlorhexidine Gluconate (Marci-Hex 2%) 1 applic DAILY@2000 TOPIC 05/03/20 20:00 08/01/20 19:59 05/05/20 21:24 Fentanyl Citrate 250 ml @ 0 mls/hr Q24H IV 05/03/20 22:03 08/01/20 22:02 05/06/20 10:19 Heparin Sodium (Porcine) (Heparin 5000 units/ml) 5,000 units EVERY 12 HOURS SUBQ 05/02/20 21:00 06/16/20 20:59 05/06/20 08:42 Levetiracetam (Keppra) 700 mg Q12HR GT 05/02/20 21:00 06/01/20 20:59 05/06/20 08:41 Lorazepam (Ativan 2mg/ml 1ml) 2 mg Q2H PRN IV For Anxiety 05/02/20 12:45 05/09/20 12:44 05/06/20 08:42 Magnesium Sulfate 100 ml @ 100 mls/hr Q1H IVPB 05/06/20 13:30 05/06/20 17:29 Meropenem 1 gm/ Sodium Chloride 55 ml @ 110 mls/hr Q8HR IVPB 05/02/20 15:00 05/07/20 14:59 05/06/20 05:38 Midodrine (Pro-Amatine) 10 mg Q8HR GT 05/04/20 22:00 08/02/20 21:59 05/06/20 12:56 Morphine Sulfate (Morphine Sulfate) 4 mg Q4H PRN IVP Severe Pain (Pain Scale 7-10) 05/02/20 12:45 05/09/20 12:44 Norepinephrine Bitartrate 250 ml @ 0 mls/hr Q24H IV 05/02/20 12:48 07/31/20 12:47 05/06/20 04:30 Ondansetron HCl (Zofran) 4 mg Q6H PRN IVP Nausea & Vomiting 05/02/20 12:45 06/01/20 12:44 Pantoprazole (Protonix) 40 mg Q12HR IVP 05/04/20 21:00 06/02/20 08:59 05/06/20 08:41 Polyethylene Glycol (Miralax) 17 gm DAILYPRN PRN GT Constipation 05/02/20 12:45 06/01/20 12:44 Potassium Chloride 10 meq/ Dextrose/Sodium Chloride 1,005 ml @ 75 mls/hr [id number] IV 05/04/20 16:00 06/03/20 15:59 05/06/20 08:40 Potassium Chloride 100 ml @ 50 mls/hr Q2H IVPB 05/06/20 10:00 05/06/20 13:59 05/06/20 12:56 Valproic Acid (Depakene) 500 mg DAILY GT 05/06/20 09:00 06/02/20 08:59 05/06/20 08:41 Vancomycin HCl ([facility] pharmacy to dose) 1 ea DAILY PRN MISC Per rx protocol 05/05/20 09:45 06/04/20 09:44 Vancomycin HCl 750 mg/Sodium Chloride 275 ml @ 183.333 mls/hr Q12HR@0000,1200 IVPB 05/05/20 12:00 05/10/20 11:59 05/06/20 12:56 Charlene Stokes M.D. May 06, 2020 13:58
--- NOTE | 2020-05-06 17:37 | Internal Med Progress Note ---
Subjective Date of Service: May 06, 2020 Physician Name Cisneros,Obey Attending Physician Marky Go MD Current Medications Medications (Trade) Dose Ordered Sig/Damion Route PRN Reason Start Time Stop Time Status Last Admin Dose Admin Acetaminophen (Tylenol) 650 mg Q4H PRN GT fever 05/02/20 12:45 06/01/20 12:44 05/06/20 10:18 Albuterol/ Ipratropium (Albuterol/ Ipratropium) 3 ml Q4H PRN HHN Shortness of Breath 05/02/20 12:45 05/07/20 12:44 Aspirin (ASA) 81 mg DAILY GT 05/05/20 09:00 06/19/20 08:59 05/06/20 08:41 Chlorhexidine Gluconate (Marci-Hex 2%) 1 applic DAILY@2000 TOPIC 05/03/20 20:00 08/01/20 19:59 05/05/20 21:24 Fentanyl Citrate 250 ml @ 0 mls/hr Q24H IV 05/03/20 22:03 08/01/20 22:02 05/06/20 10:19 Heparin Sodium (Porcine) (Heparin 5000 units/ml) 5,000 units EVERY 12 HOURS SUBQ 05/02/20 21:00 06/16/20 20:59 05/06/20 08:42 Levetiracetam (Keppra) 700 mg Q12HR GT 05/02/20 21:00 06/01/20 20:59 05/06/20 08:41 Lorazepam (Ativan 2mg/ml 1ml) 2 mg Q2H PRN IV For Anxiety 05/02/20 12:45 05/09/20 12:44 05/06/20 08:42 Meropenem 1 gm/ Sodium Chloride 55 ml @ 110 mls/hr Q8HR IVPB 05/02/20 15:00 05/11/20 23:59 05/06/20 14:29 Midodrine (Pro-Amatine) 10 mg Q8HR GT 05/04/20 22:00 08/02/20 21:59 05/06/20 12:56 Morphine Sulfate (Morphine Sulfate) 4 mg Q4H PRN IVP Severe Pain (Pain Scale 7-10) 05/02/20 12:45 05/09/20 12:44 Norepinephrine Bitartrate 250 ml @ 0 mls/hr Q24H IV 05/02/20 12:48 07/31/20 12:47 05/06/20 04:30 Ondansetron HCl (Zofran) 4 mg Q6H PRN IVP Nausea & Vomiting 05/02/20 12:45 06/01/20 12:44 Pantoprazole (Protonix) 40 mg Q12HR IVP 05/04/20 21:00 06/02/20 08:59 05/06/20 08:41 Polyethylene Glycol (Miralax) 17 gm DAILYPRN PRN GT Constipation 05/02/20 12:45 06/01/20 12:44 Potassium Chloride 10 meq/ Dextrose/Sodium Chloride 1,005 ml @ 75 mls/hr [id number] IV 05/04/20 16:00 06/03/20 15:59 05/06/20 08:40 Valproic Acid (Depakene) 500 mg DAILY GT 05/06/20 09:00 06/02/20 08:59 05/06/20 08:41 Vancomycin HCl ([facility] pharmacy to dose) 1 ea DAILY PRN MISC Per rx protocol 05/05/20 09:45 06/04/20 09:44 Vancomycin HCl 750 mg/Sodium Chloride 275 ml @ 183.333 mls/hr Q12HR@0000,1200 IVPB 05/05/20 12:00 05/10/20 11:59 05/06/20 12:56 Allergies: Coded Allergies: DIPHENHYDRAMINE (Verified Allergy, Unknown, 02/27/20) ROS Limited/Unobtainable: Yes Subjective 59 YO M admitted with respiratory failure. Now pneumonia. Intubated and sedated. Cover for Int Faraz-Dr Go. ICU Objective Last Vital Signs Date Time Temp Pulse Resp B/P (MAP) Pulse Ox O2 Delivery O2 Flow Rate FiO2 05/06/20 17:00 133 22 124/69 97 Mechanical Ventilator 30 05/06/20 16:00 97.0 05/06/20 10:19 15.0 Laboratory Tests Test 05/06/20 02:50 White Blood Count 13.2 K/UL (4.8-10.8) H Red Blood Count 2.98 M/UL (4.70-6.10) L Hemoglobin 9.3 G/DL (14.2-18.0) L Hematocrit 27.8 % (42.0-52.0) L Mean Corpuscular Volume 93 FL (80-99) Mean Corpuscular Hemoglobin 31.2 PG (27.0-31.0) H Mean Corpuscular Hemoglobin Concent 33.4 G/DL (32.0-36.0) Red Cell Distribution Width 12.0 % (11.6-14.8) Platelet Count 111 K/UL (150-450) L Mean Platelet Volume 8.7 FL (6.5-10.1) Neutrophils (%) (Auto) 77.0 % (45.0-75.0) H Lymphocytes (%) (Auto) 14.1 % (20.0-45.0) L Monocytes (%) (Auto) 7.6 % (1.0-10.0) Eosinophils (%) (Auto) 0.2 % (0.0-3.0) Basophils (%) (Auto) 1.1 % (0.0-2.0) Sodium Level 145 MMOL/L (136-145) Potassium Level 3.4 MMOL/L (3.5-5.1) L Chloride Level 110 MMOL/L (98-107) H Carbon Dioxide Level 23 MMOL/L (21-32) Anion Gap 12 mmol/L (5-15) Blood Urea Nitrogen 4 mg/dL (7-18) L Creatinine 0.9 MG/DL (0.55-1.30) Estimat Glomerular Filtration Rate > 60 mL/min (>60) Glucose Level 92 MG/DL (74-106) Calcium Level 7.8 MG/DL (8.5-10.1) L Phosphorus Level 2.5 MG/DL (2.5-4.9) Magnesium Level 1.6 MG/DL (1.8-2.4) L Total Bilirubin 0.5 MG/DL (0.2-1.0) Aspartate Amino Transf (AST/SGOT) 22 U/L (15-37) Alanine Aminotransferase (ALT/SGPT) 32 U/L (12-78) Alkaline Phosphatase 52 U/L (46-116) Pro-B-Type Natriuretic Peptide 2997 pg/mL (0-125) H Total Protein 5.6 G/DL (6.4-8.2) L Albumin 1.9 G/DL (3.4-5.0) L Globulin 3.7 g/dL Albumin/Globulin Ratio 0.5 (1.0-2.7) L Valproic Acid (Depakene) Level < 3 MCG/ML (50-100) L Intake and Output 05/05/20 05/06/20 19:00 07:00 Intake Total 2915.1917 ml 1733.5 ml Output Total 2240 ml 2580 ml Balance 675.1917 ml -846.5 ml Intake Free Water 150 ml IV Total 2765.1917 ml 1733.5 ml Output Urine Total 2240 ml 2580 ml # Bowel Movements 2 Objective PHYSICAL EXAMINATION: GENERAL: The patient is a thin-appearing male, in severe respiratory distress. HEENT: Eyes, pupils equal and responsive to light and accommodation. Extraocular movements are intact. NECK: Supple. No lymphadenopathy. CHEST: Mech Vent; Decreased breath sounds bilaterally without rales. CARDIOVASCULAR: Tachycardic, regular rhythm. S1 and S2 are normal without murmurs, rubs, or gallops. ABDOMEN: Soft, nontender, and nondistended. Positive bowel sounds. No evidence of hepatosplenomegaly. Currently, no rebound or guarding noted. EXTREMITIES: Negative for clubbing, cyanosis, or edema. RECTAL/GENITAL: Not performed. NEUROLOGICAL: Unable to assess Assessment/Plan Assessment/Plan ASSESSMENT: This is a 59-year-old male. 1. Shortness of breath. 2. Hypoxia. 3. Right lower lobe pneumonia=enterobacter, pseudamonas, and staph aureus 4. Acute respiratory failure. 5. History of cerebrovascular accident. 6. Seizure disorder. 7. Functional quadriplegia. 8. Schizophrenia. 9. Dysphagia. 10. Urinary tract infection=proteus mirabilis TREATMENT: 1. Respiratory failure/pneumonia. Intubated; A pulmonary consultation has been obtained with Dr. Ana Maria Hansen. The patient was febrile on admission. Antibiotics= vancomycin and meropenem. We will follow recommendations of Pulmonary. 2. Seizure disorder. Continue Keppra, Depakote as above. 3. Functional quadriplegia. 4. Schizophrenia. Continue Risperdal as above. 5. Dysphagia. The patient is status post PEG. Obey Cisneros MD May 06, 2020 17:37
[2020-05-06] MEDS: Dyna-Hex 2% Top Sol 2oz TOPIC SCH (19:34)
[2020-05-07] VITALS (69 sets, daily range): BP systolic 78–161; BP diastolic 29–103
[2020-05-07] MEDS: Vancomycin 750 MG in NS 275 ML IVPB SCH ×4 (00:39→23:59)
[2020-05-07 04:52] LABS: HEMATOCRIT 26.5 % (42.0-52.0); HEMOGLOBIN 8.7 G/DL (14.2-18.0); MEAN CORPUSCULAR VOLUME 95 FL (80-99); PLATELET COUNT 177 K/UL (150-450); RED BLOOD COUNT 2.79 M/UL (4.70-6.10); WHITE BLOOD COUNT 13.7 K/UL (4.8-10.8)
[2020-05-07 05:26] LABS: ALANINE AMINOTRANSFERASE 38 U/L (12-78); ALBUMIN 1.7 G/DL (3.4-5.0); ALBUMIN/GLOBULIN RATIO 0.5 (1.0-2.7); ALKALINE PHOSPHATASE 44 U/L (46-116); ANION GAP 16 mmol/L (5-15); ASPARTATE AMINO TRANSFERASE 73 U/L (15-37); BILIRUBIN,TOTAL 0.5 MG/DL (0.2-1.0); BLOOD UREA NITROGEN 9 mg/dL (7-18); CALCIUM 7.4 MG/DL (8.5-10.1); CARBON DIOXIDE 18 MMOL/L (21-32); CHLORIDE 104 MMOL/L (98-107); CREATININE 0.7 MG/DL (0.55-1.30); POTASSIUM 4.3 MMOL/L (3.5-5.1); SODIUM 138 MMOL/L (136-145)
[2020-05-07] MEDS: Midodrine 10mg tab GT SCH ×3 (05:38→21:37)
[2020-05-07] MEDS: Meropenem 1 GM in NS 55 ML IVPB SCH ×3 (05:38→21:37)
[2020-05-07] MEDS: levETIRAcetam 500mg/5ml Liquid GT SCH ×2 (08:45→20:45)
[2020-05-07] MEDS: Valproic Acid 250mg/5ml Liquid GT SCH (08:45)
[2020-05-07] MEDS: Pantoprazole Inj IVP SCH ×2 (08:45→20:45)
[2020-05-07] MEDS: Aspirin Baby 81mg GT SCH (08:45)
[2020-05-07] MEDS: Heparin 5000 units/ml inj SUBQ SCH ×2 (08:46→20:46)
[2020-05-07 09:08] LABS: PHOSPHORUS 3.1 MG/DL (2.5-4.9)
[2020-05-07] MEDS ORDERED: Tubing IV Secondary IV ONE (09:21)
[2020-05-07] MEDS ORDERED: Sterile Water Irrig 1000ml IRRIG ONE (09:21)
[2020-05-07] MEDS ORDERED: NS 275ml ONE (09:21)
[2020-05-07] MEDS: fentaNYL 2500mcg/NS 250ml 250 ML IV SCH ×2 (09:30→18:32)
--- NOTE | 2020-05-07 10:27 | Nephrology Progress Note ---
Assessment/Plan Problem List: (1) Electrolyte imbalance (2) Dehydration (3) Acute respiratory failure (4) Seizure disorder Assessment Severe electrolyte abnormalities Low magnesium, low phosphorus, low potassium, Other active conditions: (1) Acute respiratory failure (2) Sepsis (3) Nosocomial pneumonia (4) Seizure disorder (5) Dehydration (6) COPD (chronic obstructive pulmonary disease) (7) skilled nursing resident (8) History of CVA (cerebrovascular accident) Plan Remains stable from renal standpoint of view Discussed with RN mag , phosphorus and potassium supplement as needed Monitor electrolytes Continue per consultants Subjective ROS Limited/Unobtainable: Yes Objective Objective Last 24 Hour Vital Signs Date Time Temp Pulse Resp B/P (MAP) Pulse Ox O2 Delivery O2 Flow Rate FiO2 05/07/20 09:30 24 125/68 Mechanical Ventilator 30 05/07/20 07:12 133 25 30 05/07/20 07:00 23 130/103 Mechanical Ventilator 30 05/07/20 07:00 138 23 130/103 96 Mechanical Ventilator 30 05/07/20 06:30 138 22 05/07/20 06:30 131 22 142/60 100 Mechanical Ventilator 30 05/07/20 06:00 21 121/91 Mechanical Ventilator 30 05/07/20 06:00 128 21 121/91 100 Mechanical Ventilator 30 05/07/20 05:30 108 17 120/86 100 Mechanical Ventilator 30 05/07/20 05:00 96 18 110/64 100 Mechanical Ventilator 30 05/07/20 05:00 18 110/64 Mechanical Ventilator 30 05/07/20 04:30 99 17 109/64 100 Mechanical Ventilator 30 05/07/20 04:00 98.0 92 16 92/58 100 Mechanical Ventilator 30 05/07/20 04:00 16 92/58 Mechanical Ventilator 30 05/07/20 04:00 Endotracheal Tube 05/07/20 04:00 30 05/07/20 03:30 103 18 110/65 100 Mechanical Ventilator 30 05/07/20 03:15 113 20 118/57 100 Mechanical Ventilator 30 05/07/20 03:08 126 05/07/20 03:01 118 20 30 05/07/20 03:00 22 137/77 Mechanical Ventilator 30 05/07/20 03:00 122 22 137/77 100 Mechanical Ventilator 30 05/07/20 02:30 131 24 107/65 100 Mechanical Ventilator 30 05/07/20 02:00 22 118/54 Mechanical Ventilator 30 05/07/20 02:00 115 22 118/54 100 Mechanical Ventilator 30 05/07/20 01:30 127 25 142/66 100 Mechanical Ventilator 30 05/07/20 01:00 120 21 121/71 100 Mechanical Ventilator 30 05/07/20 01:00 21 121/71 Mechanical Ventilator 30 05/07/20 00:30 108 17 119/81 100 Mechanical Ventilator 30 05/07/20 00:00 99.3 92 16 81/46 100 Mechanical Ventilator 30 05/07/20 00:00 30 05/07/20 00:00 Endotracheal Tube 05/07/20 00:00 16 81/46 Mechanical Ventilator 30 05/07/20 00:00 92 05/06/20 23:30 99 16 103/58 100 Mechanical Ventilator 30 05/06/20 23:00 103 16 109/59 100 Mechanical Ventilator 30 05/06/20 23:00 16 109/59 Mechanical Ventilator 30 05/06/20 22:42 112 19 30 05/06/20 22:30 95 15 101/62 100 Mechanical Ventilator 30 05/06/20 22:15 103 20 105/61 100 Mechanical Ventilator 30 05/06/20 22:00 20 116/61 Mechanical Ventilator 30 05/06/20 22:00 122 20 116/61 100 Mechanical Ventilator 30 05/06/20 21:45 112 21 120/56 100 Mechanical Ventilator 30 05/06/20 21:31 18 126/70 Mechanical Ventilator 30 05/06/20 21:31 126/70 05/06/20 21:30 110 19 124/22 100 Mechanical Ventilator 30 05/06/20 21:00 124 23 117/58 100 Mechanical Ventilator 30 05/06/20 21:00 23 117/58 Mechanical Ventilator 30 05/06/20 20:45 113 22 124/58 100 Mechanical Ventilator 30 05/06/20 20:30 111 20 113/92 100 Mechanical Ventilator 30 05/06/20 20:15 115 21 121/45 100 Mechanical Ventilator 30 05/06/20 20:00 21 129/105 Mechanical Ventilator 30 05/06/20 20:00 Endotracheal Tube 05/06/20 20:00 99.0 123 21 129/105 100 Mechanical Ventilator 30 05/06/20 20:00 30 05/06/20 19:37 111 05/06/20 19:30 110 18 121/53 100 Mechanical Ventilator 30 7 19:01 119 23 30 7 19:00 20 119/66 Mechanical Ventilator 30 7 19:00 133 21 139/75 100 Mechanical Ventilator 30 7 18:46 99.6 7 18:30 99.6 121 20 118/49 100 Mechanical Ventilator 30 7 18:00 19 137/56 Mechanical Ventilator 30 7 18:00 108 20 112/61 100 Mechanical Ventilator 30 05/06/20 17:30 100.5 114 20 126/48 98 Mechanical Ventilator 30 05/06/20 17:00 133 22 124/69 97 Mechanical Ventilator 30 05/06/20 17:00 19 108/52 Mechanical Ventilator 30 05/06/20 16:30 114 18 77/46 99 Mechanical Ventilator 30 05/06/20 16:00 97.0 96 18 93/47 100 Mechanical Ventilator 30 05/06/20 16:00 20 104/58 30 05/06/20 16:00 Endotracheal Tube 05/06/20 16:00 30 05/06/20 16:00 96 05/06/20 15:30 127 18 108/86 100 Mechanical Ventilator 30 05/06/20 15:24 116 20 30 05/06/20 15:00 20 104/58 Mechanical Ventilator 30 05/06/20 15:00 96 19 90/74 100 Mechanical Ventilator 30 05/06/20 14:30 98 12 95/57 100 Mechanical Ventilator 30 05/06/20 14:00 104 14 99/44 100 Mechanical Ventilator 30 05/06/20 14:00 21 126/68 Mechanical Ventilator 30 05/06/20 13:30 115 20 96/46 100 Mechanical Ventilator 30 05/06/20 13:00 115 18 108/64 100 Mechanical Ventilator 30 05/06/20 13:00 21 110/67 Mechanical Ventilator 30 05/06/20 12:00 99.4 108 14 94/63 100 Mechanical Ventilator 30 05/06/20 12:00 109 05/06/20 12:00 Endotracheal Tube 05/06/20 12:00 30 05/06/20 12:00 19 106/55 Mechanical Ventilator 30 05/06/20 11:25 112 21 30 05/06/20 11:00 100.1 112 15 86/54 100 Mechanical Ventilator 30 05/06/20 11:00 15 86/54 Mechanical Ventilator 30 05/06/20 10:30 100.4 118 18 101/67 100 Mechanical Ventilator 30 Intake and Output 05/06/20 05/07/20 19:00 07:00 Intake Total 1965.416 ml 1842.50 ml Output Total 1000 ml 1500 ml Balance 965.416 ml 342.50 ml IV Total 1965.416 ml 1742.50 ml Other 100 ml Output Urine Total 1000 ml 1500 ml # Bowel Movements 3 Laboratory Tests 05/06/20 23:00: Vancomycin Level Trough 10.2 05/07/20 04:10: White Blood Count 13.7H, Red Blood Count 2.79L, Hemoglobin 8.7L, Hematocrit 26.5L, Mean Corpuscular Volume 95, Mean Corpuscular Hemoglobin 31.1H, Mean Corpuscular Hemoglobin Concent 32.8, Red Cell Distribution Width 12.0, Platelet Count 177#, Mean Platelet Volume 8.5, Neutrophils (%) (Auto) , Lymphocytes (%) ( Auto) , Monocytes (%) (Auto) , Eosinophils (%) (Auto) , Basophils (%) (Auto) , Sodium Level 138, Potassium Level 4.3, Chloride Level 104, Carbon Dioxide Level 18L, Anion Gap 16H, Blood Urea Nitrogen 9, Creatinine 0.7, Estimat Glomerular Filtration Rate > 60, Glucose Level 81, Calcium Level 7.4L, Phosphorus Level 3.1 , Magnesium Level 1.8, Total Bilirubin 0.5, Aspartate Amino Transf (AST/SGOT) 73H, Alanine Aminotransferase (ALT/SGPT) 38, Alkaline Phosphatase 44L, Pro-B- Type Natriuretic Peptide 3987H, Total Protein 5.1L, Albumin 1.7L, Globulin 3.4, Albumin/Globulin Ratio 0.5L Height (Feet): 5 Height (Inches): 8.00 Weight (Pounds): 156 General Appearance: no apparent distress EENT: other - On mechanical ventilation Cardiovascular: tachycardia Respiratory/Chest: decreased breath sounds Abdomen: distended Kin Bustillo MD May 07, 2020 10:27
[2020-05-07] MEDS: Norepinephrine 4mg/NS Premix 250 ML IV SCH (11:56)
[2020-05-07] MEDS: Potassium Chloride 10 MEQ in D5 1/2NS 1,000 ML IV SCH (11:56)
--- NOTE | 2020-05-07 12:03 | Infectious Diseases Prog Note ---
Assessment/Plan Assessment: Septic Shock- off pressors now Pneumonia- COVID 19 neg x2 (on same day) Acute hypoxic resp failure- s/p intubation 05/02 -05/04 CXR: Dense consolidation of the right mid and lower lung, right pleural effusion are unchanged. Left lung and pleural space remain clear. -05/02 Sp cx PsA (pham S), E. aerogenes (R Ancef; otherwise S), S. aureus ( sensi p) -05/02 CXR: There is a moderately consolidating infiltrate in the right lower lobe consistent with pneumonia. rapid COVID neg, COVI PCR neg - previously neg: -02/26 SARS-COV2 pCR neg; 02/28 SARS-COV 2 pcr neg -Bc xNTD Probable UTI -u/a wbc 10-15, nit neg, leul +2 ; ucx <10k ESBL. P. mirabilis (S Zosyn, meropenem) FEver (up to 105.3); fever curve improved but ongoing fever leukocytosis; overall improved TOMAS; SP Recent Sepsis 2ry to ESBL K.pna bacteremia and Pneumonia 02/2020 -Bcx 3/4 ESBL K.pna (S Levo, Meropenem, ZOsyn); 03/01 Bcx Neg -sp cx ESBL K.pna -02/27 sp removal PICC Line; cath tip cx Neg muscle weakness and atrophy (not characterized) psychiatric disorder dysphagia s/p GT [place] resident ( [facility]) Dementia seizure disorder Plan: -COntinue Meropenem #6/10-14 for UTI and PNA and IV Vancomycin #6 for PNA pending S. aureus sensi -05/05 SP Amikacin #4 -05/02 SP CEfepime x1 , Azithromycin x1 -f/u cx -Monitor CBC/CMP, temperatures -COVID19 neg x2; continue isolation until afebrile >72hrs -ICU/ETT/PEG care -aspiration precautions Thank you for consulting [facility]. Will continue to follow along with you. Joy troncoso RN. Subjective Allergies: Coded Allergies: DIPHENHYDRAMINE (Verified Allergy, Unknown, 02/27/20) Tm 100.5; afebrile >12hrs mild leukocytosis Bcx NTD off levophed now Objective Last 24 Hour Vital Signs Date Time Temp Pulse Resp B/P (MAP) Pulse Ox O2 Delivery O2 Flow Rate FiO2 7/24/20 11:56 130/83 05/07/20 11:09 112 23 30 05/07/20 11:00 113 22 120/65 100 Mechanical Ventilator 30 05/07/20 11:00 22 120/65 Mechanical Ventilator 30 05/07/20 10:45 114 24 110/70 99 Mechanical Ventilator 30 05/07/20 10:30 113 23 107/61 99 Mechanical Ventilator 30 05/07/20 10:15 116 23 121/60 99 Mechanical Ventilator 30 05/07/20 10:00 115 24 112/67 100 Mechanical Ventilator 30 05/07/20 10:00 24 112/67 Mechanical Ventilator 30 05/07/20 09:45 120 25 122/51 100 Mechanical Ventilator 30 05/07/20 09:30 127 23 139/69 100 Mechanical Ventilator 30 05/07/20 09:30 24 125/68 Mechanical Ventilator 30 05/07/20 09:15 125 24 125/68 100 Mechanical Ventilator 30 05/07/20 09:00 26 149/80 Mechanical Ventilator 30 05/07/20 09:00 132 26 149/80 99 Mechanical Ventilator 30 05/07/20 08:45 137 23 157/61 99 Mechanical Ventilator 30 05/07/20 08:30 124 24 156/68 100 Mechanical Ventilator 30 05/07/20 08:30 24 156/68 Mechanical Ventilator 30 05/07/20 08:15 122 24 161/71 100 Mechanical Ventilator 30 05/07/20 08:00 23 143/83 Mechanical Ventilator 30 05/07/20 08:00 30 05/07/20 08:00 Endotracheal Tube 05/07/20 08:00 125 05/07/20 08:00 97.5 118 23 143/83 100 Mechanical Ventilator 30 05/07/20 07:45 122 25 133/96 100 Mechanical Ventilator 30 05/07/20 07:30 24 123/70 Mechanical Ventilator 30 05/07/20 07:30 138 24 123/70 100 Mechanical Ventilator 30 05/07/20 07:15 134 22 127/85 100 Mechanical Ventilator 30 05/07/20 07:12 133 25 30 05/07/20 07:00 23 130/103 Mechanical Ventilator 30 05/07/20 07:00 138 23 130/103 96 Mechanical Ventilator 30 05/07/20 06:30 138 22 05/07/20 06:30 131 22 142/60 100 Mechanical Ventilator 30 05/07/20 06:00 21 121/91 Mechanical Ventilator 30 05/07/20 06:00 128 21 121/91 100 Mechanical Ventilator 30 05/07/20 05:30 108 17 120/86 100 Mechanical Ventilator 30 05/07/20 05:00 96 18 110/64 100 Mechanical Ventilator 30 05/07/20 05:00 18 110/64 Mechanical Ventilator 30 05/07/20 04:30 99 17 109/64 100 Mechanical Ventilator 30 05/07/20 04:00 98.0 92 16 92/58 100 Mechanical Ventilator 30 05/07/20 04:00 16 92/58 Mechanical Ventilator 30 05/07/20 04:00 Endotracheal Tube 05/07/20 04:00 30 05/07/20 03:30 103 18 110/65 100 Mechanical Ventilator 30 05/07/20 03:15 113 20 118/57 100 Mechanical Ventilator 30 05/07/20 03:08 126 05/07/20 03:01 118 20 30 05/07/20 03:00 22 137/77 Mechanical Ventilator 30 05/07/20 03:00 122 22 137/77 100 Mechanical Ventilator 30 05/07/20 02:30 131 24 107/65 100 Mechanical Ventilator 30 05/07/20 02:00 22 118/54 Mechanical Ventilator 30 05/07/20 02:00 115 22 118/54 100 Mechanical Ventilator 30 05/07/20 01:30 127 25 142/66 100 Mechanical Ventilator 30 05/07/20 01:00 120 21 121/71 100 Mechanical Ventilator 30 05/07/20 01:00 21 121/71 Mechanical Ventilator 30 05/07/20 00:30 108 17 119/81 100 Mechanical Ventilator 30 05/07/20 00:00 99.3 92 16 81/46 100 Mechanical Ventilator 30 05/07/20 00:00 30 05/07/20 00:00 Endotracheal Tube 05/07/20 00:00 16 81/46 Mechanical Ventilator 30 05/07/20 00:00 92 05/06/20 23:30 99 16 103/58 100 Mechanical Ventilator 30 05/06/20 23:00 103 16 109/59 100 Mechanical Ventilator 30 05/06/20 23:00 16 109/59 Mechanical Ventilator 30 05/06/20 22:42 112 19 30 05/06/20 22:30 95 15 101/62 100 Mechanical Ventilator 30 7/23/20 22:15 103 20 105/61 100 Mechanical Ventilator 30 7/20 22:00 20 116/61 Mechanical Ventilator 30 720 22:00 122 20 116/61 100 Mechanical Ventilator 30 7 21:45 112 21 120/56 100 Mechanical Ventilator 30 720 21:31 18 126/70 Mechanical Ventilator 30 720 21:31 126/70 720 21:30 110 19 124/22 100 Mechanical Ventilator 30 7 21:00 124 23 117/58 100 Mechanical Ventilator 30 7 21:00 23 117/58 Mechanical Ventilator 30 720 20:45 113 22 124/58 100 Mechanical Ventilator 30 05/06/20 20:30 111 20 113/92 100 Mechanical Ventilator 30 05/06/20 20:15 115 21 121/45 100 Mechanical Ventilator 30 05/06/20 20:00 21 129/105 Mechanical Ventilator 30 05/06/20 20:00 Endotracheal Tube 05/06/20 20:00 99.0 123 21 129/105 100 Mechanical Ventilator 30 05/06/20 20:00 30 05/06/20 19:37 111 05/06/20 19:30 110 18 121/53 100 Mechanical Ventilator 30 05/06/20 19:01 119 23 30 05/06/20 19:00 20 119/66 Mechanical Ventilator 30 05/06/20 19:00 133 21 139/75 100 Mechanical Ventilator 30 05/06/20 18:46 99.6 05/06/20 18:30 99.6 121 20 118/49 100 Mechanical Ventilator 30 05/06/20 18:00 19 137/56 Mechanical Ventilator 30 05/06/20 18:00 108 20 112/61 100 Mechanical Ventilator 30 05/06/20 17:30 100.5 114 20 126/48 98 Mechanical Ventilator 30 05/06/20 17:00 133 22 124/69 97 Mechanical Ventilator 30 05/06/20 17:00 19 108/52 Mechanical Ventilator 30 05/06/20 16:30 114 18 77/46 99 Mechanical Ventilator 30 05/06/20 16:00 97.0 96 18 93/47 100 Mechanical Ventilator 30 05/06/20 16:00 20 104/58 30 05/06/20 16:00 Endotracheal Tube 05/06/20 16:00 30 05/06/20 16:00 96 7/23/20 15:30 127 18 108/86 100 Mechanical Ventilator 30 05/06/20 15:24 116 20 30 05/06/20 15:00 20 104/58 Mechanical Ventilator 30 05/06/20 15:00 96 19 90/74 100 Mechanical Ventilator 30 05/06/20 14:30 98 12 95/57 100 Mechanical Ventilator 30 05/06/20 14:00 104 14 99/44 100 Mechanical Ventilator 30 05/06/20 14:00 21 126/68 Mechanical Ventilator 30 05/06/20 13:30 115 20 96/46 100 Mechanical Ventilator 30 05/06/20 13:00 115 18 108/64 100 Mechanical Ventilator 30 05/06/20 13:00 21 110/67 Mechanical Ventilator 30 Height (Feet): 5 Height (Inches): 8.00 Weight (Pounds): 156 GENERAL: The patient is a thin-appearing male, in severe respiratory distress. HEENT: Eyes, pupils equal and responsive to light and accommodation. Extraocular movements are intact. NECK: Supple. No lymphadenopathy. CHEST: Mech Vent; Decreased breath sounds bilaterally without rales. CARDIOVASCULAR: Tachycardic, regular rhythm. S1 and S2 are normal without murmurs, rubs, or gallops. ABDOMEN: Soft, nontender, and nondistended. Positive bowel sounds. No evidence of hepatosplenomegaly. Currently, no rebound or guarding noted. EXTREMITIES: Negative for clubbing, cyanosis, or edema. Microbiology Date/Time Source Procedure Growth Status 05/05/20 12:35 Blood Blood Culture - Preliminary NO GROWTH AFTER 24 HOURS Resulted 05/05/20 12:35 Blood Blood Culture - Preliminary NO GROWTH AFTER 24 HOURS Resulted Laboratory Tests Test 05/06/20 23:00 05/07/20 04:10 Vancomycin Level Trough 10.2 ug/mL (5.0-12.0) White Blood Count 13.7 K/UL (4.8-10.8) H Red Blood Count 2.79 M/UL (4.70-6.10) L Hemoglobin 8.7 G/DL (14.2-18.0) L Hematocrit 26.5 % (42.0-52.0) L Mean Corpuscular Volume 95 FL (80-99) Mean Corpuscular Hemoglobin 31.1 PG (27.0-31.0) H Mean Corpuscular Hemoglobin Concent 32.8 G/DL (32.0-36.0) Red Cell Distribution Width 12.0 % (11.6-14.8) Platelet Count 177 K/UL (150-450) # Mean Platelet Volume 8.5 FL (6.5-10.1) Neutrophils (%) (Auto) % (45.0-75.0) Lymphocytes (%) (Auto) % (20.0-45.0) Monocytes (%) (Auto) % (1.0-10.0) Eosinophils (%) (Auto) % (0.0-3.0) Basophils (%) (Auto) % (0.0-2.0) Sodium Level 138 MMOL/L (136-145) Potassium Level 4.3 MMOL/L (3.5-5.1) Chloride Level 104 MMOL/L (98-107) Carbon Dioxide Level 18 MMOL/L (21-32) L Anion Gap 16 mmol/L (5-15) H Blood Urea Nitrogen 9 mg/dL (7-18) Creatinine 0.7 MG/DL (0.55-1.30) Estimat Glomerular Filtration Rate > 60 mL/min (>60) Glucose Level 81 MG/DL (74-106) Calcium Level 7.4 MG/DL (8.5-10.1) L Phosphorus Level 3.1 MG/DL (2.5-4.9) Magnesium Level 1.8 MG/DL (1.8-2.4) Total Bilirubin 0.5 MG/DL (0.2-1.0) Aspartate Amino Transf (AST/SGOT) 73 U/L (15-37) H Alanine Aminotransferase (ALT/SGPT) 38 U/L (12-78) Alkaline Phosphatase 44 U/L (46-116) L Pro-B-Type Natriuretic Peptide 3987 pg/mL (0-125) H Total Protein 5.1 G/DL (6.4-8.2) L Albumin 1.7 G/DL (3.4-5.0) L Globulin 3.4 g/dL Albumin/Globulin Ratio 0.5 (1.0-2.7) L Current Medications Medications (Trade) Dose Ordered Sig/Damion Route PRN Reason Start Time Stop Time Status Last Admin Dose Admin Acetaminophen (Tylenol) 650 mg Q4H PRN GT fever 7/19/20 12:45 06/01/20 12:44 05/06/20 18:16 Albuterol/ Ipratropium (Albuterol/ Ipratropium) 3 ml Q4H PRN HHN Shortness of Breath 05/02/20 12:45 05/07/20 12:44 Aspirin (ASA) 81 mg DAILY GT 05/05/20 09:00 06/19/20 08:59 05/07/20 08:45 Chlorhexidine Gluconate (Marci-Hex 2%) 1 applic DAILY@2000 TOPIC 05/03/20 20:00 08/01/20 19:59 05/06/20 19:34 Fentanyl Citrate 250 ml @ 0 mls/hr Q24H IV 05/03/20 22:03 08/01/20 22:02 05/07/20 09:30 Heparin Sodium (Porcine) (Heparin 5000 units/ml) 5,000 units EVERY 12 HOURS SUBQ 05/02/20 21:00 06/16/20 20:59 05/07/20 08:46 Levetiracetam (Keppra) 700 mg Q12HR GT 05/02/20 21:00 06/01/20 20:59 05/07/20 08:45 Lorazepam (Ativan 2mg/ml 1ml) 2 mg Q2H PRN IV For Anxiety 05/02/20 12:45 05/09/20 12:44 05/06/20 08:42 Meropenem 1 gm/ Sodium Chloride 55 ml @ 110 mls/hr Q8HR IVPB 05/02/20 15:00 05/11/20 23:59 05/07/20 05:38 Midodrine (Pro-Amatine) 10 mg Q8HR GT 05/04/20 22:00 08/02/20 21:59 05/07/20 05:38 Morphine Sulfate (Morphine Sulfate) 4 mg Q4H PRN IVP Severe Pain (Pain Scale 7-10) 05/02/20 12:45 05/09/20 12:44 Norepinephrine Bitartrate 250 ml @ 0 mls/hr Q24H IV 05/02/20 12:48 07/31/20 12:47 05/06/20 21:31 Ondansetron HCl (Zofran) 4 mg Q6H PRN IVP Nausea & Vomiting 05/02/20 12:45 06/01/20 12:44 Pantoprazole (Protonix) 40 mg Q12HR IVP 05/04/20 21:00 06/02/20 08:59 05/07/20 08:45 Polyethylene Glycol (Miralax) 17 gm DAILYPRN PRN GT Constipation 05/02/20 12:45 06/01/20 12:44 Potassium Chloride 10 meq/ Dextrose/Sodium Chloride 1,005 ml @ 75 mls/hr [id number] IV 05/04/20 16:00 06/03/20 15:59 05/07/20 11:56 Valproic Acid (Depakene) 500 mg DAILY GT 05/06/20 09:00 06/02/20 08:59 05/07/20 08:45 Vancomycin HCl (Vanco pharmacy to dose) 1 ea DAILY PRN MISC Per rx protocol 05/05/20 09:45 06/04/20 09:44 Vancomycin HCl 750 mg/Sodium Chloride 275 ml @ 183.333 mls/hr Q8H IVPB 05/07/20 00:00 05/12/20 00:00 05/07/20 08:45 Charlene Stokes M.D. May 07, 2020 12:03
--- NOTE | 2020-05-07 12:48 | Pulmonolgy Critical Care Note ---
Critical Care - Asmt/Plan Problems: (1) Acute respiratory failure (2) Sepsis (3) Nosocomial pneumonia (4) Seizure disorder (5) Dehydration (6) COPD (chronic obstructive pulmonary disease) (7) retirement resident (8) History of CVA (cerebrovascular accident) Respiratory: monitor respiratory rate, adjust FIO2, CXR Cardiac: stop pressors, continue to monitor HR/BP Renal: F/U I&O, keep IV fluid, check electrolytes Infectious Disease: check cultures, continue antibiotics Gastrointestinal: continue feedings/current rate Endocrine: monitor blood sugar, check HgA1C Neurologic: PRN Morphine Affect: PRN ativan Prophylaxis: Protonix Notes Reviewed: cardio, 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, consultants, 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 - Objective Last 24 Hour Vital Signs Date Time Temp Pulse Resp B/P (MAP) Pulse Ox O2 Delivery O2 Flow Rate FiO2 05/07/20 12:15 140 25 120/76 99 Mechanical Ventilator 30 05/07/20 12:15 140 25 120/76 99 Mechanical Ventilator 30 05/07/20 12:00 126 05/07/20 12:00 30 05/07/20 12:00 Endotracheal Tube 05/07/20 12:00 24 120/76 Mechanical Ventilator 30 05/07/20 12:00 98.9 126 25 108/89 98 Mechanical Ventilator 30 05/07/20 11:56 130/83 05/07/20 11:45 126 26 130/83 97 Mechanical Ventilator 30 05/07/20 11:30 121 24 115/56 98 Mechanical Ventilator 30 05/07/20 11:15 124 23 123/52 97 Mechanical Ventilator 30 05/07/20 11:09 112 23 30 05/07/20 11:00 113 22 120/65 100 Mechanical Ventilator 30 05/07/20 11:00 22 120/65 Mechanical Ventilator 30 05/07/20 10:45 114 24 110/70 99 Mechanical Ventilator 30 05/07/20 10:30 113 23 107/61 99 Mechanical Ventilator 30 05/07/20 10:15 116 23 121/60 99 Mechanical Ventilator 30 05/07/20 10:00 115 24 112/67 100 Mechanical Ventilator 30 05/07/20 10:00 24 112/67 Mechanical Ventilator 30 05/07/20 09:45 120 25 122/51 100 Mechanical Ventilator 30 05/07/20 09:30 127 23 139/69 100 Mechanical Ventilator 30 05/07/20 09:30 24 125/68 Mechanical Ventilator 30 05/07/20 09:15 125 24 125/68 100 Mechanical Ventilator 30 05/07/20 09:15 24 125/68 Mechanical Ventilator 30 05/07/20 09:00 26 149/80 Mechanical Ventilator 30 05/07/20 09:00 132 26 149/80 99 Mechanical Ventilator 30 05/07/20 08:45 24 157/61 Mechanical Ventilator 30 05/07/20 08:45 137 23 157/61 99 Mechanical Ventilator 30 05/07/20 08:30 124 24 156/68 100 Mechanical Ventilator 30 05/07/20 08:30 24 156/68 Mechanical Ventilator 30 05/07/20 08:15 122 24 161/71 100 Mechanical Ventilator 30 05/07/20 08:00 23 143/83 Mechanical Ventilator 30 05/07/20 08:00 30 05/07/20 08:00 Endotracheal Tube 05/07/20 08:00 125 05/07/20 08:00 97.5 118 23 143/83 100 Mechanical Ventilator 30 05/07/20 07:45 122 25 133/96 100 Mechanical Ventilator 30 05/07/20 07:30 24 123/70 Mechanical Ventilator 30 05/07/20 07:30 138 24 123/70 100 Mechanical Ventilator 30 05/07/20 07:15 134 22 127/85 100 Mechanical Ventilator 30 05/07/20 07:12 133 25 30 05/07/20 07:00 23 130/103 Mechanical Ventilator 30 05/07/20 07:00 138 23 130/103 96 Mechanical Ventilator 30 05/07/20 06:30 138 22 05/07/20 06:30 131 22 142/60 100 Mechanical Ventilator 30 05/07/20 06:00 21 121/91 Mechanical Ventilator 30 05/07/20 06:00 128 21 121/91 100 Mechanical Ventilator 30 05/07/20 05:30 108 17 120/86 100 Mechanical Ventilator 30 05/07/20 05:00 96 18 110/64 100 Mechanical Ventilator 30 05/07/20 05:00 18 110/64 Mechanical Ventilator 30 05/07/20 04:30 99 17 109/64 100 Mechanical Ventilator 30 05/07/20 04:00 98.0 92 16 92/58 100 Mechanical Ventilator 30 05/07/20 04:00 16 92/58 Mechanical Ventilator 30 05/07/20 04:00 Endotracheal Tube 05/07/20 04:00 30 05/07/20 03:30 103 18 110/65 100 Mechanical Ventilator 30 05/07/20 03:15 113 20 118/57 100 Mechanical Ventilator 30 05/07/20 03:08 126 05/07/20 03:01 118 20 30 05/07/20 03:00 22 137/77 Mechanical Ventilator 30 05/07/20 03:00 122 22 137/77 100 Mechanical Ventilator 30 05/07/20 02:30 131 24 107/65 100 Mechanical Ventilator 30 05/07/20 02:00 22 118/54 Mechanical Ventilator 30 05/07/20 02:00 115 22 118/54 100 Mechanical Ventilator 30 05/07/20 01:30 127 25 142/66 100 Mechanical Ventilator 30 05/07/20 01:00 120 21 121/71 100 Mechanical Ventilator 30 05/07/20 01:00 21 121/71 Mechanical Ventilator 30 05/07/20 00:30 108 17 119/81 100 Mechanical Ventilator 30 05/07/20 00:00 99.3 92 16 81/46 100 Mechanical Ventilator 30 05/07/20 00:00 30 05/07/20 00:00 Endotracheal Tube 05/07/20 00:00 16 81/46 Mechanical Ventilator 30 05/07/20 00:00 92 05/06/20 23:30 99 16 103/58 100 Mechanical Ventilator 30 05/06/20 23:00 103 16 109/59 100 Mechanical Ventilator 30 05/06/20 23:00 16 109/59 Mechanical Ventilator 30 05/06/20 22:42 112 19 30 05/06/20 22:30 95 15 101/62 100 Mechanical Ventilator 30 05/06/20 22:15 103 20 105/61 100 Mechanical Ventilator 30 05/06/20 22:00 20 116/61 Mechanical Ventilator 30 05/06/20 22:00 122 20 116/61 100 Mechanical Ventilator 30 05/06/20 21:45 112 21 120/56 100 Mechanical Ventilator 30 05/06/20 21:31 18 126/70 Mechanical Ventilator 30 05/06/20 21:31 126/70 05/06/20 21:30 110 19 124/22 100 Mechanical Ventilator 30 05/06/20 21:00 124 23 117/58 100 Mechanical Ventilator 30 05/06/20 21:00 23 117/58 Mechanical Ventilator 30 05/06/20 20:45 113 22 124/58 100 Mechanical Ventilator 30 05/06/20 20:30 111 20 113/92 100 Mechanical Ventilator 30 05/06/20 20:15 115 21 121/45 100 Mechanical Ventilator 30 05/06/20 20:00 21 129/105 Mechanical Ventilator 30 05/06/20 20:00 Endotracheal Tube 05/06/20 20:00 99.0 123 21 129/105 100 Mechanical Ventilator 30 05/06/20 20:00 30 05/06/20 19:37 111 05/06/20 19:30 110 18 121/53 100 Mechanical Ventilator 30 05/06/20 19:01 119 23 30 05/06/ 19:00 20 119/66 Mechanical Ventilator 30 05/06/20 19:00 133 21 139/75 100 Mechanical Ventilator 30 05/06/20 18:46 99.6 05/06/20 18:30 99.6 121 20 118/49 100 Mechanical Ventilator 30 05/06/20 18:00 19 137/56 Mechanical Ventilator 30 05/06/20 18:00 108 20 112/61 100 Mechanical Ventilator 30 05/06/20 17:30 100.5 114 20 126/48 98 Mechanical Ventilator 30 05/06/20 17:00 133 22 124/69 97 Mechanical Ventilator 30 05/06/20 17:00 19 108/52 Mechanical Ventilator 30 05/06/20 16:30 114 18 77/46 99 Mechanical Ventilator 30 05/06/20 16:00 97.0 96 18 93/47 100 Mechanical Ventilator 30 05/06/20 16:00 20 104/58 30 05/06/20 16:00 Endotracheal Tube 05/06/20 16:00 30 05/06/20 16:00 96 05/06/20 15:30 127 18 108/86 100 Mechanical Ventilator 30 05/06/20 15:24 116 20 30 05/06/ 15:00 20 104/58 Mechanical Ventilator 30 05/06/20 15:00 96 19 90/74 100 Mechanical Ventilator 30 05/06/20 14:30 98 12 95/57 100 Mechanical Ventilator 30 05/06/20 14:00 104 14 99/44 100 Mechanical Ventilator 30 05/06/20 14:00 21 126/68 Mechanical Ventilator 30 05/06/20 13:30 115 20 96/46 100 Mechanical Ventilator 30 05/06/20 13:00 115 18 108/64 100 Mechanical Ventilator 30 05/06/20 13:00 21 110/67 Mechanical Ventilator 30 Status: awake Condition: critical HEENT: atraumatic Neck: full ROM Heart: HR/BP stable, HR/BP unstable Abdomen: soft, non-tender Extremities: no C/C/E Decubiti: location Micro: Microbiology Date/Time Source Procedure Growth Status 05/05/20 12:35 Blood Blood Culture - Preliminary NO GROWTH AFTER 24 HOURS Resulted 05/05/20 12:35 Blood Blood Culture - Preliminary NO GROWTH AFTER 24 HOURS Resulted Critical Care - Subjective ROS Limited/Unobtainable: Yes Condition: critical EKG Rhythm: Sinus Rhythm FI02: 30 Vent Support Breath Rate: 16 Vent Support Mode: AC Vent Tidal Volume: 600 Sputum Amount: Moderate PEEP: 0.0 PIP: 20 I&O: Intake and Output 05/06/20 05/07/20 19:00 07:00 Intake Total 1965.416 ml 1842.50 ml Output Total 1000 ml 1500 ml Balance 965.416 ml 342.50 ml IV Total 1965.416 ml 1742.50 ml Other 100 ml Output Urine Total 1000 ml 1500 ml # Bowel Movements 3 ET-Tube: 7.5 ET Position: 24 Labs: Laboratory Tests Test 05/06/20 23:00 05/07/20 04:10 Vancomycin Level Trough 10.2 ug/mL (5.0-12.0) White Blood Count 13.7 K/UL (4.8-10.8) H Red Blood Count 2.79 M/UL (4.70-6.10) L Hemoglobin 8.7 G/DL (14.2-18.0) L Hematocrit 26.5 % (42.0-52.0) L Mean Corpuscular Volume 95 FL (80-99) Mean Corpuscular Hemoglobin 31.1 PG (27.0-31.0) H Mean Corpuscular Hemoglobin Concent 32.8 G/DL (32.0-36.0) Red Cell Distribution Width 12.0 % (11.6-14.8) Platelet Count 177 K/UL (150-450) # Mean Platelet Volume 8.5 FL (6.5-10.1) Neutrophils (%) (Auto) % (45.0-75.0) Lymphocytes (%) (Auto) % (20.0-45.0) Monocytes (%) (Auto) % (1.0-10.0) Eosinophils (%) (Auto) % (0.0-3.0) Basophils (%) (Auto) % (0.0-2.0) Sodium Level 138 MMOL/L (136-145) Potassium Level 4.3 MMOL/L (3.5-5.1) Chloride Level 104 MMOL/L (98-107) Carbon Dioxide Level 18 MMOL/L (21-32) L Anion Gap 16 mmol/L (5-15) H Blood Urea Nitrogen 9 mg/dL (7-18) Creatinine 0.7 MG/DL (0.55-1.30) Estimat Glomerular Filtration Rate > 60 mL/min (>60) Glucose Level 81 MG/DL (74-106) Calcium Level 7.4 MG/DL (8.5-10.1) L Phosphorus Level 3.1 MG/DL (2.5-4.9) Magnesium Level 1.8 MG/DL (1.8-2.4) Total Bilirubin 0.5 MG/DL (0.2-1.0) Aspartate Amino Transf (AST/SGOT) 73 U/L (15-37) H Alanine Aminotransferase (ALT/SGPT) 38 U/L (12-78) Alkaline Phosphatase 44 U/L (46-116) L Pro-B-Type Natriuretic Peptide 3987 pg/mL (0-125) H Total Protein 5.1 G/DL (6.4-8.2) L Albumin 1.7 G/DL (3.4-5.0) L Globulin 3.4 g/dL Albumin/Globulin Ratio 0.5 (1.0-2.7) L Ana Maria Hansen MD May 07, 2020 12:48
--- NOTE | 2020-05-07 12:56 | Internal Med Progress Note ---
Subjective Date of Service: May 07, 2020 Physician Name Obey Cisneros Attending Physician Marky Go MD Current Medications Medications (Trade) Dose Ordered Sig/Damion Route PRN Reason Start Time Stop Time Status Last Admin Dose Admin Acetaminophen (Tylenol) 650 mg Q4H PRN GT fever 05/02/20 12:45 06/01/20 12:44 05/06/20 18:16 Aspirin (ASA) 81 mg DAILY GT 05/05/20 09:00 06/19/20 08:59 05/07/20 08:45 Chlorhexidine Gluconate (Marci-Hex 2%) 1 applic DAILY@2000 TOPIC 05/03/20 20:00 08/01/20 19:59 05/06/20 19:34 Fentanyl Citrate 250 ml @ 0 mls/hr Q24H IV 05/03/20 22:03 08/01/20 22:02 05/07/20 09:30 Heparin Sodium (Porcine) (Heparin 5000 units/ml) 5,000 units EVERY 12 HOURS SUBQ 05/02/20 21:00 06/16/20 20:59 05/07/20 08:46 Levetiracetam (Keppra) 700 mg Q12HR GT 05/02/20 21:00 06/01/20 20:59 05/07/20 08:45 Lorazepam (Ativan 2mg/ml 1ml) 2 mg Q2H PRN IV For Anxiety 05/02/20 12:45 05/09/20 12:44 05/06/20 08:42 Meropenem 1 gm/ Sodium Chloride 55 ml @ 110 mls/hr Q8HR IVPB 05/02/20 15:00 05/11/20 23:59 05/07/20 05:38 Midodrine (Pro-Amatine) 10 mg Q8HR GT 05/04/20 22:00 08/02/20 21:59 05/07/20 05:38 Morphine Sulfate (Morphine Sulfate) 4 mg Q4H PRN IVP Severe Pain (Pain Scale 7-10) 05/02/20 12:45 05/09/20 12:44 Norepinephrine Bitartrate 250 ml @ 0 mls/hr Q24H IV 05/02/20 12:48 07/31/20 12:47 05/06/20 21:31 Ondansetron HCl (Zofran) 4 mg Q6H PRN IVP Nausea & Vomiting 05/02/20 12:45 06/01/20 12:44 Pantoprazole (Protonix) 40 mg Q12HR IVP 05/04/20 21:00 06/02/20 08:59 05/07/20 08:45 Polyethylene Glycol (Miralax) 17 gm DAILYPRN PRN GT Constipation 05/02/20 12:45 06/01/20 12:44 Potassium Chloride 10 meq/ Dextrose/Sodium Chloride 1,005 ml @ 75 mls/hr [id number] IV 05/04/20 16:00 06/03/20 15:59 05/07/20 11:56 Valproic Acid (Depakene) 500 mg DAILY GT 05/06/20 09:00 06/02/20 08:59 05/07/20 08:45 Vancomycin HCl ([facility] to dose) 1 ea DAILY PRN MISC Per rx protocol 05/05/20 09:45 06/04/20 09:44 Vancomycin HCl 750 mg/Sodium Chloride 275 ml @ 183.333 mls/hr Q8H IVPB 05/07/20 00:00 05/12/20 00:00 05/07/20 08:45 Allergies: Coded Allergies: DIPHENHYDRAMINE (Verified Allergy, Unknown, 02/27/20) ROS Limited/Unobtainable: Yes Subjective 59 YO M admitted with respiratory failure. Now pneumonia. Intubated and sedated. Cover for Int Faraz-Dr Go. ICU Objective Last Vital Signs Date Time Temp Pulse Resp B/P (MAP) Pulse Ox O2 Delivery O2 Flow Rate FiO2 05/07/20 12:15 140 25 120/76 99 Mechanical Ventilator 30 05/07/20 12:00 98.9 05/06/20 10:19 15.0 Laboratory Tests Test 05/06/20 23:00 05/07/20 04:10 Vancomycin Level Trough 10.2 ug/mL (5.0-12.0) White Blood Count 13.7 K/UL (4.8-10.8) H Red Blood Count 2.79 M/UL (4.70-6.10) L Hemoglobin 8.7 G/DL (14.2-18.0) L Hematocrit 26.5 % (42.0-52.0) L Mean Corpuscular Volume 95 FL (80-99) Mean Corpuscular Hemoglobin 31.1 PG (27.0-31.0) H Mean Corpuscular Hemoglobin Concent 32.8 G/DL (32.0-36.0) Red Cell Distribution Width 12.0 % (11.6-14.8) Platelet Count 177 K/UL (150-450) # Mean Platelet Volume 8.5 FL (6.5-10.1) Neutrophils (%) (Auto) % (45.0-75.0) Lymphocytes (%) (Auto) % (20.0-45.0) Monocytes (%) (Auto) % (1.0-10.0) Eosinophils (%) (Auto) % (0.0-3.0) Basophils (%) (Auto) % (0.0-2.0) Sodium Level 138 MMOL/L (136-145) Potassium Level 4.3 MMOL/L (3.5-5.1) Chloride Level 104 MMOL/L (98-107) Carbon Dioxide Level 18 MMOL/L (21-32) L Anion Gap 16 mmol/L (5-15) H Blood Urea Nitrogen 9 mg/dL (7-18) Creatinine 0.7 MG/DL (0.55-1.30) Estimat Glomerular Filtration Rate > 60 mL/min (>60) Glucose Level 81 MG/DL (74-106) Calcium Level 7.4 MG/DL (8.5-10.1) L Phosphorus Level 3.1 MG/DL (2.5-4.9) Magnesium Level 1.8 MG/DL (1.8-2.4) Total Bilirubin 0.5 MG/DL (0.2-1.0) Aspartate Amino Transf (AST/SGOT) 73 U/L (15-37) H Alanine Aminotransferase (ALT/SGPT) 38 U/L (12-78) Alkaline Phosphatase 44 U/L (46-116) L Pro-B-Type Natriuretic Peptide 3987 pg/mL (0-125) H Total Protein 5.1 G/DL (6.4-8.2) L Albumin 1.7 G/DL (3.4-5.0) L Globulin 3.4 g/dL Albumin/Globulin Ratio 0.5 (1.0-2.7) L Microbiology Date/Time Source Procedure Growth Status 05/05/20 12:35 Blood Blood Culture - Preliminary NO GROWTH AFTER 24 HOURS Resulted 05/05/20 12:35 Blood Blood Culture - Preliminary NO GROWTH AFTER 24 HOURS Resulted Intake and Output 05/06/20 05/07/20 19:00 07:00 Intake Total 1965.416 ml 1842.50 ml Output Total 1000 ml 1500 ml Balance 965.416 ml 342.50 ml IV Total 1965.416 ml 1742.50 ml Other 100 ml Output Urine Total 1000 ml 1500 ml # Bowel Movements 3 Objective PHYSICAL EXAMINATION: GENERAL: The patient is a thin-appearing male, in severe respiratory distress. HEENT: Eyes, pupils equal and responsive to light and accommodation. Extraocular movements are intact. NECK: Supple. No lymphadenopathy. CHEST: Mech Vent; Decreased breath sounds bilaterally without rales. CARDIOVASCULAR: Tachycardic, regular rhythm. S1 and S2 are normal without murmurs, rubs, or gallops. ABDOMEN: Soft, nontender, and nondistended. Positive bowel sounds. No evidence of hepatosplenomegaly. Currently, no rebound or guarding noted. EXTREMITIES: Negative for clubbing, cyanosis, or edema. RECTAL/GENITAL: Not performed. NEUROLOGICAL: Unable to assess Assessment/Plan Assessment/Plan ASSESSMENT: This is a 59-year-old male. 1. Shortness of breath. 2. Hypoxia. 3. Right lower lobe pneumonia=enterobacter, pseudamonas, and staph aureus 4. Acute respiratory failure. 5. History of cerebrovascular accident. 6. Seizure disorder. 7. Functional quadriplegia. 8. Schizophrenia. 9. Dysphagia. 10. Urinary tract infection=proteus mirabilis TREATMENT: 1. Respiratory failure/pneumonia. Intubated; A pulmonary consultation has been obtained with Dr. Ana Maria Hansen. The patient was febrile on admission. Antibiotics= vancomycin and meropenem. We will follow recommendations of Pulmonary. 2. Seizure disorder. Continue Keppra, Depakote as above. 3. Functional quadriplegia. 4. Schizophrenia. Continue Risperdal as above. 5. Dysphagia. The patient is status post PEG. Obey Cisneros MD May 07, 2020 12:56
--- NOTE | 2020-05-07 14:18 | Diagnostic Imaging Report ---
Indication: Dyspnea Technique: One view of the chest Comparison: 05/06/2020 Findings: Extensive right lung consolidation is stable to slightly worse. Less extensive hazy opacity in the left lung is probably unchanged. The heart size is normal. Stable positions of endotracheal tube and right jugular central venous catheter. Impression: Slight worsening of infiltrates in the right lung, over one day. Other stable findings as described
[2020-05-07] MEDS: LORazepam Inj 2mg/ml 1ml IV PRN (16:45)
[2020-05-07] MEDS: Dyna-Hex 2% Top Sol 2oz TOPIC SCH (19:46)
[2020-05-08] VITALS (70 sets, daily range): BP systolic 73–128; BP diastolic 37–92
[2020-05-08] MEDS: Potassium Chloride 10 MEQ in D5 1/2NS 1,000 ML IV SCH (00:02)
[2020-05-08] MEDS: Norepinephrine 4mg/NS Premix 250 ML IV SCH ×4 (00:05→14:29)
[2020-05-08 04:56] LABS: HEMOGLOBIN 9.8 G/DL (14.2-18.0); MEAN CORPUSCULAR VOLUME 96 FL (80-99); PLATELET COUNT 301 K/UL (150-450); RED BLOOD COUNT 3.12 M/UL (4.70-6.10); RED CELL DISTRIBUTION WIDTH 12.8 % (11.6-14.8); WHITE BLOOD COUNT 18.5 K/UL (4.8-10.8)
[2020-05-08] MEDS: fentaNYL 2500mcg/NS 250ml 250 ML IV SCH ×2 (05:01→14:30)
[2020-05-08 05:13] LABS: ALANINE AMINOTRANSFERASE 42 U/L (12-78); ALBUMIN 1.9 G/DL (3.4-5.0); ALBUMIN/GLOBULIN RATIO 0.5 (1.0-2.7); ALKALINE PHOSPHATASE 52 U/L (46-116); ANION GAP 16 mmol/L (5-15); ASPARTATE AMINO TRANSFERASE 59 U/L (15-37); BILIRUBIN,TOTAL 0.4 MG/DL (0.2-1.0); BLOOD UREA NITROGEN 12 mg/dL (7-18); CALCIUM 8.5 MG/DL (8.5-10.1); CARBON DIOXIDE 17 MMOL/L (21-32); CHLORIDE 102 MMOL/L (98-107); PHOSPHORUS 3.7 MG/DL (2.5-4.9); POTASSIUM 4.7 MMOL/L (3.5-5.1); SODIUM 135 MMOL/L (136-145)
[2020-05-08] MEDS: Midodrine 10mg tab GT SCH ×3 (05:32→21:37)
[2020-05-08] MEDS: Meropenem 1 GM in NS 55 ML IVPB SCH ×3 (05:32→21:37)
[2020-05-08] MEDS: Valproic Acid 250mg/5ml Liquid GT SCH (08:01)
[2020-05-08] MEDS: Vancomycin 750 MG in NS 275 ML IVPB SCH ×3 (08:01→23:20)
[2020-05-08] MEDS: Pantoprazole Inj IVP SCH ×2 (08:01→20:46)
[2020-05-08] MEDS: levETIRAcetam 500mg/5ml Liquid GT SCH ×2 (08:02→20:47)
[2020-05-08] MEDS: Heparin 5000 units/ml inj SUBQ SCH ×2 (08:02→20:48)
[2020-05-08] MEDS: Aspirin Baby 81mg GT SCH (08:02)
[2020-05-08] MEDS: LORazepam Inj 2mg/ml 1ml IV PRN ×2 (08:06→23:19)
[2020-05-08] MEDS: Acetaminophen 650mg/20.3ml GT PRN (08:06)
[2020-05-08] MEDS ORDERED: NS 275ml ONE (08:46)
--- NOTE | 2020-05-08 09:21 | Nephrology Progress Note ---
Assessment/Plan Problem List: (1) Electrolyte imbalance (2) Dehydration (3) Acute respiratory failure (4) Seizure disorder Assessment Severe electrolyte abnormalities Low magnesium, low phosphorus, low potassium, Other active conditions: (1) Acute respiratory failure (2) Sepsis (3) Nosocomial pneumonia (4) Seizure disorder (5) Dehydration (6) COPD (chronic obstructive pulmonary disease) (7) assisted resident (8) History of CVA (cerebrovascular accident) Plan May 08: Magnesium sulfate IV ordered for hypomagnesemia. Patient has metabolic acidosis. IV sodium bicarb given. Feeding on hold due to residual. IV Reglan ordered. IV fluid changed to D10 normal saline. 2D echocardiogram ordered for tachycardia. Chest x-ray suggests worsening pulmonary infiltrate. Discussed with RN Hilda Remains stable from renal standpoint of view Discussed with RN mag , phosphorus and potassium supplement as needed Monitor electrolytes Continue per consultants Subjective ROS Limited/Unobtainable: Yes Objective Objective Last 24 Hour Vital Signs Date Time Temp Pulse Resp B/P (MAP) Pulse Ox O2 Delivery O2 Flow Rate FiO2 05/08/20 07:08 141 24 30 05/08/20 07:00 141 23 114/64 98 Mechanical Ventilator 30 05/08/20 07:00 23 114/64 Mechanical Ventilator 30 05/08/20 06:30 127 23 108/66 98 Mechanical Ventilator 30 05/08/20 06:30 127 23 05/08/20 06:00 21 100/53 Mechanical Ventilator 30 05/08/20 06:00 125 21 100/53 97 Mechanical Ventilator 30 05/08/20 05:30 117 21 101/59 100 Mechanical Ventilator 30 05/08/20 05:01 21 112/63 Mechanical Ventilator 30 05/08/20 05:00 22 100/67 Mechanical Ventilator 30 05/08/20 05:00 122 22 100/67 99 Mechanical Ventilator 30 05/08/20 04:30 125 21 96/49 99 Mechanical Ventilator 30 05/08/20 04:08 123 21 100/77 98 Mechanical Ventilator 30 05/08/20 04:00 30 05/08/20 04:00 122 05/08/20 04:00 Endotracheal Tube 05/08/20 04:00 21 82/56 Mechanical Ventilator 30 05/08/20 04:00 97.0 122 21 82/56 100 Mechanical Ventilator 30 05/08/20 03:32 136 26 30 7/25/20 03:30 131 23 126/55 96 Mechanical Ventilator 30 05/08/20 03:17 109/63 05/08/20 03:00 20 109/63 Mechanical Ventilator 30 05/08/20 03:00 129 23 109/63 94 Mechanical Ventilator 30 05/08/20 02:30 128 25 120/69 97 Mechanical Ventilator 30 05/08/20 02:00 24 111/68 Mechanical Ventilator 30 05/08/20 02:00 126 24 111/68 100 Mechanical Ventilator 30 05/08/20 01:30 127 22 97/62 100 Mechanical Ventilator 30 05/08/20 01:00 109 18 99/52 100 Mechanical Ventilator 30 05/08/20 01:00 18 99/52 Mechanical Ventilator 30 05/08/20 00:45 110 17 98/60 100 Mechanical Ventilator 30 05/08/20 00:30 107 17 92/63 100 Mechanical Ventilator 30 05/08/20 00:15 111 20 102/63 100 Mechanical Ventilator 30 05/08/20 00:12 103 19 91/47 100 Mechanical Ventilator 30 05/08/20 00:10 102 18 80/49 100 Mechanical Ventilator 30 05/08/20 00:05 73/37 05/08/20 00:00 97.8 98 16 73/37 100 Mechanical Ventilator 30 05/08/20 00:00 16 73/37 Mechanical Ventilator 30 05/08/20 00:00 Endotracheal Tube 05/08/20 00:00 30 05/08/20 00:00 98 05/07/20 23:30 122 21 123/43 100 Mechanical Ventilator 30 05/07/20 23:29 103 22 30 05/07/20 23:00 116 19 99/44 100 Mechanical Ventilator 30 05/07/20 23:00 19 99/44 Mechanical Ventilator 30 05/07/20 22:30 124 22 115/29 100 Mechanical Ventilator 30 05/07/20 22:00 108 19 102/60 100 Mechanical Ventilator 30 05/07/20 22:00 19 102/60 Mechanical Ventilator 30 05/07/20 21:30 111 20 99/51 100 Mechanical Ventilator 30 05/07/20 21:00 111 18 98/46 100 Mechanical Ventilator 30 05/07/20 21:00 18 98/46 Mechanical Ventilator 30 05/07/20 20:30 117 22 114/45 100 Mechanical Ventilator 30 05/07/20 20:00 Endotracheal Tube 05/07/20 20:00 22 108/47 Mechanical Ventilator 30 05/07/20 20:00 97.5 112 22 108/47 100 Mechanical Ventilator 30 05/07/20 20:00 30 05/07/20 19:52 113 22 30 05/07/20 19:45 112 05/07/20 19:30 115 20 105/57 100 Mechanical Ventilator 30 05/07/20 19:00 23 105/43 Mechanical Ventilator 30 05/07/20 19:00 116 23 105/43 100 Mechanical Ventilator 30 05/07/20 18:32 21 94/50 Mechanical Ventilator 30 05/07/20 18:30 111 20 99/46 100 Mechanical Ventilator 30 05/07/20 18:00 110 18 96/49 100 Mechanical Ventilator 30 05/07/20 18:00 18 96/49 Mechanical Ventilator 30 05/07/20 17:30 109 17 92/53 100 Mechanical Ventilator 30 05/07/20 17:00 21 94/50 Mechanical Ventilator 30 05/07/20 17:00 118 21 94/50 100 Mechanical Ventilator 30 05/07/20 16:45 126 23 104/47 100 Mechanical Ventilator 30 05/07/20 16:30 137 28 140/68 100 Mechanical Ventilator 30 05/07/20 16:15 129 26 116/54 100 Mechanical Ventilator 30 05/07/20 16:00 Endotracheal Tube 05/07/20 16:00 98.9 136 23 110/88 100 Mechanical Ventilator 30 05/07/20 16:00 23 110/88 Mechanical Ventilator 30 05/07/20 16:00 140 05/07/20 16:00 30 05/07/20 15:45 125 25 118/95 100 Mechanical Ventilator 30 05/07/20 15:30 130 24 126/94 100 Mechanical Ventilator 30 05/07/20 15:15 117 22 114/64 100 Mechanical Ventilator 30 05/07/20 15:00 21 139/45 Mechanical Ventilator 30 05/07/20 15:00 115 21 139/45 100 Mechanical Ventilator 30 05/07/20 14:51 120 22 30 05/07/20 14:51 120 22 100 Mechanical Ventilator 80 05/07/20 14:45 118 25 112/58 100 Mechanical Ventilator 30 05/07/20 14:30 133 24 131/71 99 Mechanical Ventilator 30 05/07/20 14:15 131 27 110/59 99 Mechanical Ventilator 30 05/07/20 14:00 23 106/66 Mechanical Ventilator 30 05/07/20 14:00 114 23 106/66 99 Mechanical Ventilator 30 05/07/20 13:45 130 25 101/80 99 Mechanical Ventilator 30 05/07/20 13:30 122 24 123/64 99 Mechanical Ventilator 30 05/07/20 13:15 117 24 117/75 99 Mechanical Ventilator 30 05/07/20 13:00 116 24 121/45 99 Mechanical Ventilator 30 05/07/20 13:00 24 121/45 Mechanical Ventilator 30 05/07/20 12:45 117 24 115/70 99 Mechanical Ventilator 30 05/07/20 12:30 121 26 121/102 99 Mechanical Ventilator 30 05/07/20 12:15 140 25 120/76 99 Mechanical Ventilator 30 05/07/20 12:15 140 25 120/76 99 Mechanical Ventilator 30 05/07/20 12:00 126 05/07/20 12:00 30 05/07/20 12:00 Endotracheal Tube 05/07/20 12:00 24 120/76 Mechanical Ventilator 30 05/07/20 12:00 98.9 126 25 108/89 98 Mechanical Ventilator 30 05/07/20 11:56 130/83 05/07/20 11:45 126 26 130/83 97 Mechanical Ventilator 30 05/07/20 11:30 121 24 115/56 98 Mechanical Ventilator 30 05/07/20 11:15 124 23 123/52 97 Mechanical Ventilator 30 05/07/20 11:09 112 23 30 05/07/20 11:00 113 22 120/65 100 Mechanical Ventilator 30 05/07/20 11:00 22 120/65 Mechanical Ventilator 30 05/07/20 10:45 114 24 110/70 99 Mechanical Ventilator 30 05/07/20 10:30 113 23 107/61 99 Mechanical Ventilator 30 05/07/20 10:15 116 23 121/60 99 Mechanical Ventilator 30 05/07/20 10:00 115 24 112/67 100 Mechanical Ventilator 30 05/07/20 10:00 24 112/67 Mechanical Ventilator 30 05/07/20 09:45 120 25 122/51 100 Mechanical Ventilator 30 05/07/20 09:30 127 23 139/69 100 Mechanical Ventilator 30 05/07/20 09:30 24 125/68 Mechanical Ventilator 30 Intake and Output 05/07/20 05/08/20 19:00 07:00 Intake Total 1925.000 ml 1818 ml Output Total 1355 ml 610 ml Balance 570.000 ml 1208 ml Intake Free Water 20 ml IV Total 1775.000 ml 1688 ml Tube Feeding 130 ml 50 ml Other 80 ml Output Urine Total 1355 ml 610 ml Laboratory Tests 05/07/20 22:30: Vancomycin Level Trough 15.6H 05/08/20 04:30: White Blood Count 18.5H, Red Blood Count 3.12L, Hemoglobin 9.8L, Hematocrit 30.0L, Mean Corpuscular Volume 96, Mean Corpuscular Hemoglobin 31.4H, Mean Corpuscular Hemoglobin Concent 32.6, Red Cell Distribution Width 12.8, Platelet Count 301#, Mean Platelet Volume 7.6, Neutrophils (%) (Auto) , Lymphocytes (%) ( Auto) , Monocytes (%) (Auto) , Eosinophils (%) (Auto) , Basophils (%) (Auto) , Neutrophils % (Manual) [Pending], Lymphocytes % (Manual) [Pending], Platelet Estimate [Pending], Platelet Morphology [Pending], Sodium Level 135L, Potassium Level 4.7, Chloride Level 102, Carbon Dioxide Level 17L, Anion Gap 16H, Blood Urea Nitrogen 12, Creatinine 1.0, Estimat Glomerular Filtration Rate > 60, Glucose Level 73L, Calcium Level 8.5, Phosphorus Level 3.7, Magnesium Level 1.5L , Total Bilirubin 0.4, Aspartate Amino Transf (AST/SGOT) 59H, Alanine Aminotransferase (ALT/SGPT) 42, Alkaline Phosphatase 52, Total Protein 5.5L, Albumin 1.9L, Globulin 3.6, Albumin/Globulin Ratio 0.5L 05/08/20 07:08: Arterial Blood pH 7.181*L, Arterial Blood Partial Pressure CO2 33.8L, Arterial Blood Partial Pressure O2 75.9, Arterial Blood HCO3 12.4*L, Arterial Blood Oxygen Saturation 92.5L, Arterial Blood Base Excess -14.9*L, Nicolas Test Positive Height (Feet): 5 Height (Inches): 8.00 Weight (Pounds): 152 General Appearance: no apparent distress EENT: other - On vent Cardiovascular: tachycardia Respiratory/Chest: decreased breath sounds Abdomen: distended Kin Bustillo MD May 08, 2020 09:21
[2020-05-08] MEDS ORDERED: Sodium Bicarbonate 50ml Carp IV SCH (10:00)
[2020-05-08] MEDS: Metoclopramide 10mg/2ml Inj IVP SCH ×3 (10:21→21:37)
[2020-05-08] MEDS: Dextrose 10%/0.9% SOD CHL 1,000 ML IV SCH (10:21)
[2020-05-08] MEDS ORDERED: Magnesium Sulfate 4,000 MG in NS 275 ML IVPB ONE (11:00)
--- NOTE | 2020-05-08 12:20 | Pulmonolgy Critical Care Note ---
Critical Care - Asmt/Plan Problems: (1) Acute respiratory failure (2) Sepsis (3) Nosocomial pneumonia (4) Seizure disorder (5) Dehydration (6) COPD (chronic obstructive pulmonary disease) (7) [facility] resident (8) History of CVA (cerebrovascular accident) Respiratory: monitor respiratory rate, adjust FIO2, CXR Cardiac: continue to monitor HR/BP Renal: F/U I&O, keep IV fluid, check electrolytes Infectious Disease: check cultures, continue antibiotics Gastrointestinal: continue feedings/current rate Endocrine: monitor blood sugar, continue sliding scale insulin Hematologic: monitor H/H, transfuse if hgb<8.5 Neurologic: PRN Ativan, PRN Morphine, keep patient comfortable Affect: PRN ativan Prophylaxis: Protonix, Heparin Disposition: keep in ICU Notes Reviewed: cardio, 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, 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, 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 - Objective Last 24 Hour Vital Signs Date Time Temp Pulse Resp B/P (MAP) Pulse Ox O2 Delivery O2 Flow Rate FiO2 05/08/20 11:30 106 18 91/54 99 Mechanical Ventilator 30 05/08/20 11:09 111 20 30 05/08/20 11:00 102 18 93/52 100 Mechanical Ventilator 30 05/08/20 10:30 100 19 98/48 99 Mechanical Ventilator 30 05/08/20 10:00 110 17 96/66 97 Mechanical Ventilator 30 05/08/20 09:45 112 16 107/74 98 Mechanical Ventilator 30 05/08/20 09:30 115 21 108/56 97 Mechanical Ventilator 30 05/08/20 09:15 121 23 105/58 98 Mechanical Ventilator 30 05/08/20 09:00 123 20 103/63 100 Mechanical Ventilator 30 05/08/20 08:45 129 21 108/63 100 Mechanical Ventilator 30 05/08/20 08:36 97.0 05/08/20 08:30 137 22 109/62 99 Mechanical Ventilator 30 05/08/20 08:15 141 26 120/75 100 Mechanical Ventilator 30 05/08/20 08:00 99.3 138 23 77/52 100 Mechanical Ventilator 30 05/08/20 08:00 Endotracheal Tube 05/08/20 08:00 139 05/08/20 08:00 30 05/08/20 07:45 138 25 116/67 100 Mechanical Ventilator 30 05/08/20 07:30 138 26 118/75 100 Mechanical Ventilator 30 05/08/20 07:15 143 23 124/92 100 Mechanical Ventilator 30 05/08/20 07:08 141 24 30 05/08/20 07:00 141 23 114/64 98 Mechanical Ventilator 30 05/08/20 07:00 23 114/64 Mechanical Ventilator 30 05/08/20 06:30 127 23 108/66 98 Mechanical Ventilator 30 05/08/20 06:30 127 23 05/08/20 06:00 21 100/53 Mechanical Ventilator 30 05/08/20 06:00 125 21 100/53 97 Mechanical Ventilator 30 05/08/20 05:30 117 21 101/59 100 Mechanical Ventilator 30 05/08/20 05:01 21 112/63 Mechanical Ventilator 30 05/08/20 05:00 22 100/67 Mechanical Ventilator 30 05/08/20 05:00 122 22 100/67 99 Mechanical Ventilator 30 05/08/20 04:30 125 21 96/49 99 Mechanical Ventilator 30 05/08/20 04:08 123 21 100/77 98 Mechanical Ventilator 30 05/08/20 04:00 30 05/08/20 04:00 122 05/08/20 04:00 Endotracheal Tube 05/08/20 04:00 21 82/56 Mechanical Ventilator 30 05/08/20 04:00 97.0 122 21 82/56 100 Mechanical Ventilator 30 05/08/20 03:32 136 26 30 05/08/20 03:30 131 23 126/55 96 Mechanical Ventilator 30 05/08/20 03:17 109/63 05/08/20 03:00 20 109/63 Mechanical Ventilator 30 05/08/20 03:00 129 23 109/63 94 Mechanical Ventilator 30 05/08/20 02:30 128 25 120/69 97 Mechanical Ventilator 30 05/08/20 02:00 24 111/68 Mechanical Ventilator 30 05/08/20 02:00 126 24 111/68 100 Mechanical Ventilator 30 05/08/20 01:30 127 22 97/62 100 Mechanical Ventilator 30 05/08/20 01:00 109 18 99/52 100 Mechanical Ventilator 30 05/08/20 01:00 18 99/52 Mechanical Ventilator 30 05/08/20 00:45 110 17 98/60 100 Mechanical Ventilator 30 05/08/20 00:30 107 17 92/63 100 Mechanical Ventilator 30 05/08/20 00:15 111 20 102/63 100 Mechanical Ventilator 30 05/08/20 00:12 103 19 91/47 100 Mechanical Ventilator 30 05/08/20 00:10 102 18 80/49 100 Mechanical Ventilator 30 05/08/20 00:05 73/37 05/08/20 00:00 97.8 98 16 73/37 100 Mechanical Ventilator 30 05/08/20 00:00 16 73/37 Mechanical Ventilator 30 05/08/20 00:00 Endotracheal Tube 05/08/20 00:00 30 05/08/20 00:00 98 05/07/20 23:30 122 21 123/43 100 Mechanical Ventilator 30 05/07/20 23:29 103 22 30 05/07/20 23:00 116 19 99/44 100 Mechanical Ventilator 30 05/07/20 23:00 19 99/44 Mechanical Ventilator 30 05/07/20 22:30 124 22 115/29 100 Mechanical Ventilator 30 05/07/20 22:00 108 19 102/60 100 Mechanical Ventilator 30 05/07/20 22:00 19 102/60 Mechanical Ventilator 30 05/07/20 21:30 111 20 99/51 100 Mechanical Ventilator 30 05/07/20 21:00 111 18 98/46 100 Mechanical Ventilator 30 05/07/20 21:00 18 98/46 Mechanical Ventilator 30 05/07/20 20:30 117 22 114/45 100 Mechanical Ventilator 30 05/07/20 20:00 Endotracheal Tube 05/07/20 20:00 22 108/47 Mechanical Ventilator 30 05/07/20 20:00 97.5 112 22 108/47 100 Mechanical Ventilator 30 05/07/20 20:00 30 05/07/20 19:52 113 22 30 05/07/20 19:45 112 05/07/20 19:30 115 20 105/57 100 Mechanical Ventilator 30 05/07/20 19:00 23 105/43 Mechanical Ventilator 30 05/07/20 19:00 116 23 105/43 100 Mechanical Ventilator 30 05/07/20 18:32 21 94/50 Mechanical Ventilator 30 05/07/20 18:30 111 20 99/46 100 Mechanical Ventilator 30 05/07/20 18:00 110 18 96/49 100 Mechanical Ventilator 30 05/07/20 18:00 18 96/49 Mechanical Ventilator 30 05/07/20 17:30 109 17 92/53 100 Mechanical Ventilator 30 05/07/20 17:00 21 94/50 Mechanical Ventilator 30 05/07/20 17:00 118 21 94/50 100 Mechanical Ventilator 30 05/07/20 16:45 126 23 104/47 100 Mechanical Ventilator 30 05/07/20 16:30 137 28 140/68 100 Mechanical Ventilator 30 05/07/20 16:15 129 26 116/54 100 Mechanical Ventilator 30 05/07/20 16:00 Endotracheal Tube 05/07/20 16:00 98.9 136 23 110/88 100 Mechanical Ventilator 30 05/07/20 16:00 23 110/88 Mechanical Ventilator 30 05/07/20 16:00 140 05/07/20 16:00 30 05/07/20 15:45 125 25 118/95 100 Mechanical Ventilator 30 05/07/20 15:30 130 24 126/94 100 Mechanical Ventilator 30 05/07/20 15:15 117 22 114/64 100 Mechanical Ventilator 30 05/07/20 15:00 21 139/45 Mechanical Ventilator 30 05/07/20 15:00 115 21 139/45 100 Mechanical Ventilator 30 05/07/20 14:51 120 22 30 05/07/20 14:51 120 22 100 Mechanical Ventilator 80 05/07/20 14:45 118 25 112/58 100 Mechanical Ventilator 30 05/07/20 14:30 133 24 131/71 99 Mechanical Ventilator 30 05/07/20 14:15 131 27 110/59 99 Mechanical Ventilator 30 05/07/20 14:00 23 106/66 Mechanical Ventilator 30 05/07/20 14:00 114 23 106/66 99 Mechanical Ventilator 30 05/07/20 13:45 130 25 101/80 99 Mechanical Ventilator 30 05/07/20 13:30 122 24 123/64 99 Mechanical Ventilator 30 05/07/20 13:15 117 24 117/75 99 Mechanical Ventilator 30 05/07/20 13:00 116 24 121/45 99 Mechanical Ventilator 30 05/07/20 13:00 24 121/45 Mechanical Ventilator 30 05/07/20 12:45 117 24 115/70 99 Mechanical Ventilator 30 05/07/20 12:30 121 26 121/102 99 Mechanical Ventilator 30 Status: sedated Condition: critical HEENT: atraumatic Lungs: clear Abdomen: soft, non-tender, feeding tube Micro: Microbiology Date/Time Source Procedure Growth Status 05/05/20 12:35 Blood Blood Culture - Preliminary NO GROWTH AFTER 48 HOURS Resulted 05/05/20 12:35 Blood Blood Culture - Preliminary NO GROWTH AFTER 48 HOURS Resulted 05/07/20 16:00 Nasopharynx SARS-CoV-2 RdRp Gene Assay - Final Complete Critical Care - Subjective ROS Limited/Unobtainable: Yes Condition: critical EKG Rhythm: Sinus Rhythm FI02: 30 Vent Support Breath Rate: 16 Vent Support Mode: AC Vent Tidal Volume: 600 Sputum Amount: Moderate PEEP: 0.0 PIP: 21 Tube Feeding Amount: 0 I&O: Intake and Output 05/07/20 05/08/20 19:00 07:00 Intake Total 1925.000 ml 1818 ml Output Total 1355 ml 610 ml Balance 570.000 ml 1208 ml Intake Free Water 20 ml IV Total 1775.000 ml 1688 ml Tube Feeding 130 ml 50 ml Other 80 ml Output Urine Total 1355 ml 610 ml CXR: no change ET-Tube: 7.5 ET Position: 24 Labs: Laboratory Tests Test 05/07/20 22:30 05/08/20 04:30 05/08/20 07:08 Vancomycin Level Trough 15.6 ug/mL (5.0-12.0) H White Blood Count 18.5 K/UL (4.8-10.8) H Red Blood Count 3.12 M/UL (4.70-6.10) L Hemoglobin 9.8 G/DL (14.2-18.0) L Hematocrit 30.0 % (42.0-52.0) L Mean Corpuscular Volume 96 FL (80-99) Mean Corpuscular Hemoglobin 31.4 PG (27.0-31.0) H Mean Corpuscular Hemoglobin Concent 32.6 G/DL (32.0-36.0) Red Cell Distribution Width 12.8 % (11.6-14.8) Platelet Count 301 K/UL (150-450) # Mean Platelet Volume 7.6 FL (6.5-10.1) Neutrophils (%) (Auto) % (45.0-75.0) Lymphocytes (%) (Auto) % (20.0-45.0) Monocytes (%) (Auto) % (1.0-10.0) Eosinophils (%) (Auto) % (0.0-3.0) Basophils (%) (Auto) % (0.0-2.0) Differential Total Cells Counted 100 Neutrophils % (Manual) 92 % (45-75) H Lymphocytes % (Manual) 7 % (20-45) L Monocytes % (Manual) 1 % (1-10) Eosinophils % (Manual) 0 % (0-3) Basophils % (Manual) 0 % (0-2) Band Neutrophils 0 % (0-8) Platelet Estimate Adequate Platelet Morphology Normal Hypochromasia 1+ Sodium Level 135 MMOL/L (136-145) L Potassium Level 4.7 MMOL/L (3.5-5.1) Chloride Level 102 MMOL/L (98-107) Carbon Dioxide Level 17 MMOL/L (21-32) L Anion Gap 16 mmol/L (5-15) H Blood Urea Nitrogen 12 mg/dL (7-18) Creatinine 1.0 MG/DL (0.55-1.30) Estimat Glomerular Filtration Rate > 60 mL/min (>60) Glucose Level 73 MG/DL (74-106) L Calcium Level 8.5 MG/DL (8.5-10.1) Phosphorus Level 3.7 MG/DL (2.5-4.9) Magnesium Level 1.5 MG/DL (1.8-2.4) L Total Bilirubin 0.4 MG/DL (0.2-1.0) Aspartate Amino Transf (AST/SGOT) 59 U/L (15-37) H Alanine Aminotransferase (ALT/SGPT) 42 U/L (12-78) Alkaline Phosphatase 52 U/L (46-116) Total Protein 5.5 G/DL (6.4-8.2) L Albumin 1.9 G/DL (3.4-5.0) L Globulin 3.6 g/dL Albumin/Globulin Ratio 0.5 (1.0-2.7) L Arterial Blood pH 7.181 (7.350-7.450) Arterial Blood Partial Pressure CO2 33.8 mmHg (35.0-45.0) L Arterial Blood Partial Pressure O2 75.9 mmHg (75.0-100.0) Arterial Blood HCO3 12.4 mmol/L (22.0-26.0) *L Arterial Blood Oxygen Saturation 92.5 % (95-100) L Arterial Blood Base Excess -14.9 (-2-2) *L Nicolas Test Positive Ana Maria Hansen MD May 08, 2020 12:20
--- NOTE | 2020-05-08 14:30 | Diagnostic Imaging Report ---
EXAM: XR Chest, 1 View CLINICAL HISTORY: DYSPNEA TECHNIQUE: Frontal view of the chest. COMPARISON: Chest x-ray 05/07/20 834 FINDINGS: Lungs: Increasing airspace opacities, worse in the right midlung. Pleural space: Increase in small right pleural effusion and probably small left pleural effusion. No pneumothorax. Heart: Unremarkable. No cardiomegaly. Mediastinum: Unremarkable. Bones/joints: Unremarkable. Tubes, lines and devices: Endotracheal tube tip at the [place]. Right IJ catheter stable. IMPRESSION: 1. Endotracheal tube tip at the [place]. 2. Increasing airspace opacities, worse in the right midlung. 3. Increase in small right pleural effusion and probably small left pleural effusion.
--- NOTE | 2020-05-08 15:02 | Internal Med Progress Note ---
Subjective Date of Service: May 08, 2020 Physician Name Cisneros,Obey Attending Physician Marky Go MD Current Medications Medications (Trade) Dose Ordered Sig/Damion Route PRN Reason Start Time Stop Time Status Last Admin Dose Admin Acetaminophen (Tylenol) 650 mg Q4H PRN GT fever 05/02/20 12:45 06/01/20 12:44 05/08/20 08:06 Aspirin (ASA) 81 mg DAILY GT 05/05/20 09:00 06/19/20 08:59 05/08/20 08:02 Chlorhexidine Gluconate (Marci-Hex 2%) 1 applic DAILY@2000 TOPIC 05/03/20 20:00 08/01/20 19:59 05/07/20 19:46 Dextrose/Sodium Chloride 1,000 ml @ 50 mls/hr Q20H IV 05/08/20 10:30 06/07/20 10:29 05/08/20 10:21 Fentanyl Citrate 250 ml @ 0 mls/hr Q24H IV 05/03/20 22:03 08/01/20 22:02 05/08/20 14:30 Heparin Sodium (Porcine) (Heparin 5000 units/ml) 5,000 units EVERY 12 HOURS SUBQ 05/02/20 21:00 06/16/20 20:59 05/08/20 08:02 Levetiracetam (Keppra) 700 mg Q12HR GT 05/02/20 21:00 06/01/20 20:59 05/08/20 08:02 Lorazepam (Ativan 2mg/ml 1ml) 2 mg Q2H PRN IV For Anxiety 05/02/20 12:45 05/09/20 12:44 05/08/20 08:06 Meropenem 1 gm/ Sodium Chloride 55 ml @ 110 mls/hr Q8HR IVPB 05/02/20 15:00 05/11/20 23:59 05/08/20 13:59 Metoclopramide HCl (Reglan) 10 mg Q6H IVP 05/08/20 10:00 06/07/20 09:59 05/08/20 10:21 Midodrine (Pro-Amatine) 10 mg Q8HR GT 05/04/20 22:00 08/02/20 21:59 05/08/20 13:59 Morphine Sulfate (Morphine Sulfate) 4 mg Q4H PRN IVP Severe Pain (Pain Scale 7-10) 05/02/20 12:45 05/09/20 12:44 Norepinephrine Bitartrate 250 ml @ 0 mls/hr Q24H IV 05/02/20 12:48 07/31/20 12:47 05/08/20 14:29 Ondansetron HCl (Zofran) 4 mg Q6H PRN IVP Nausea & Vomiting 05/02/20 12:45 06/01/20 12:44 Pantoprazole (Protonix) 40 mg Q12HR IVP 05/04/20 21:00 06/02/20 08:59 05/08/20 08:01 Polyethylene Glycol (Miralax) 17 gm DAILYPRN PRN GT Constipation 05/02/20 12:45 06/01/20 12:44 Sodium Bicarbonate (Sodium Bicarbonate) 50 ml ONCE IV 05/08/20 10:00 06/07/20 09:59 05/08/20 10:21 Valproic Acid (Depakene) 500 mg DAILY GT 05/06/20 09:00 06/02/20 08:59 05/08/20 08:01 Vancomycin HCl (Vanco pharmacy to dose) 1 ea DAILY PRN MISC Per rx protocol 05/05/20 09:45 06/04/20 09:44 Vancomycin HCl 750 mg/Sodium Chloride 275 ml @ 183.333 mls/hr Q8H IVPB 05/07/20 00:00 05/12/20 00:00 05/08/20 08:01 Allergies: Coded Allergies: DIPHENHYDRAMINE (Verified Allergy, Unknown, 02/27/20) ROS Limited/Unobtainable: Yes Subjective 59 YO M admitted with respiratory failure. Now pneumonia. Intubated and sedated. Cover for Int Faraz-Dr Go. ICU Objective Last Vital Signs Date Time Temp Pulse Resp B/P (MAP) Pulse Ox O2 Delivery O2 Flow Rate FiO2 05/08/20 14:30 128 15 99/57 98 Mechanical Ventilator 30 05/08/20 12:00 98.0 05/06/20 10:19 15.0 Laboratory Tests Test 05/07/20 22:30 05/08/20 04:30 05/08/20 07:08 Vancomycin Level Trough 15.6 ug/mL (5.0-12.0) H White Blood Count 18.5 K/UL (4.8-10.8) H Red Blood Count 3.12 M/UL (4.70-6.10) L Hemoglobin 9.8 G/DL (14.2-18.0) L Hematocrit 30.0 % (42.0-52.0) L Mean Corpuscular Volume 96 FL (80-99) Mean Corpuscular Hemoglobin 31.4 PG (27.0-31.0) H Mean Corpuscular Hemoglobin Concent 32.6 G/DL (32.0-36.0) Red Cell Distribution Width 12.8 % (11.6-14.8) Platelet Count 301 K/UL (150-450) # Mean Platelet Volume 7.6 FL (6.5-10.1) Neutrophils (%) (Auto) % (45.0-75.0) Lymphocytes (%) (Auto) % (20.0-45.0) Monocytes (%) (Auto) % (1.0-10.0) Eosinophils (%) (Auto) % (0.0-3.0) Basophils (%) (Auto) % (0.0-2.0) Differential Total Cells Counted 100 Neutrophils % (Manual) 92 % (45-75) H Lymphocytes % (Manual) 7 % (20-45) L Monocytes % (Manual) 1 % (1-10) Eosinophils % (Manual) 0 % (0-3) Basophils % (Manual) 0 % (0-2) Band Neutrophils 0 % (0-8) Platelet Estimate Adequate Platelet Morphology Normal Hypochromasia 1+ Sodium Level 135 MMOL/L (136-145) L Potassium Level 4.7 MMOL/L (3.5-5.1) Chloride Level 102 MMOL/L (98-107) Carbon Dioxide Level 17 MMOL/L (21-32) L Anion Gap 16 mmol/L (5-15) H Blood Urea Nitrogen 12 mg/dL (7-18) Creatinine 1.0 MG/DL (0.55-1.30) Estimat Glomerular Filtration Rate > 60 mL/min (>60) Glucose Level 73 MG/DL (74-106) L Calcium Level 8.5 MG/DL (8.5-10.1) Phosphorus Level 3.7 MG/DL (2.5-4.9) Magnesium Level 1.5 MG/DL (1.8-2.4) L Total Bilirubin 0.4 MG/DL (0.2-1.0) Aspartate Amino Transf (AST/SGOT) 59 U/L (15-37) H Alanine Aminotransferase (ALT/SGPT) 42 U/L (12-78) Alkaline Phosphatase 52 U/L (46-116) Total Protein 5.5 G/DL (6.4-8.2) L Albumin 1.9 G/DL (3.4-5.0) L Globulin 3.6 g/dL Albumin/Globulin Ratio 0.5 (1.0-2.7) L Arterial Blood pH 7.181 (7.350-7.450) Arterial Blood Partial Pressure CO2 33.8 mmHg (35.0-45.0) L Arterial Blood Partial Pressure O2 75.9 mmHg (75.0-100.0) Arterial Blood HCO3 12.4 mmol/L (22.0-26.0) *L Arterial Blood Oxygen Saturation 92.5 % (95-100) L Arterial Blood Base Excess -14.9 (-2-2) *L Nicolas Test Positive Microbiology Date/Time Source Procedure Growth Status 05/07/20 16:00 Nasopharynx SARS-CoV-2 RdRp Gene Assay - Final Complete Intake and Output 05/07/20 05/08/20 19:00 07:00 Intake Total 1925.000 ml 1818 ml Output Total 1355 ml 610 ml Balance 570.000 ml 1208 ml Intake Free Water 20 ml IV Total 1775.000 ml 1688 ml Tube Feeding 130 ml 50 ml Other 80 ml Output Urine Total 1355 ml 610 ml Objective PHYSICAL EXAMINATION: GENERAL: The patient is a thin-appearing male, in severe respiratory distress. HEENT: Eyes, pupils equal and responsive to light and accommodation. Extraocular movements are intact. NECK: Supple. No lymphadenopathy. CHEST: Mech Vent; Decreased breath sounds bilaterally without rales. CARDIOVASCULAR: Tachycardic, regular rhythm. S1 and S2 are normal without murmurs, rubs, or gallops. ABDOMEN: Soft, nontender, and nondistended. Positive bowel sounds. No evidence of hepatosplenomegaly. Currently, no rebound or guarding noted. EXTREMITIES: Negative for clubbing, cyanosis, or edema. RECTAL/GENITAL: Not performed. NEUROLOGICAL: Unable to assess Assessment/Plan Assessment/Plan ASSESSMENT: This is a 59-year-old male. 1. Shortness of breath. 2. Hypoxia. 3. Right lower lobe pneumonia=enterobacter, pseudamonas, and staph aureus 4. Acute respiratory failure. 5. History of cerebrovascular accident. 6. Seizure disorder. 7. Functional quadriplegia. 8. Schizophrenia. 9. Dysphagia. 10. Urinary tract infection=proteus mirabilis 11. Sinus Tachycardia 12.Inceased tube feed residuals TREATMENT: 1. Respiratory failure/pneumonia. Intubated; A pulmonary consultation has been obtained with Dr. Ana Maria Hansen. The patient was febrile on admission. Antibiotics= vancomycin and meropenem. We will follow recommendations of Pulmonary. 2. Seizure disorder. Continue Keppra, Depakote as above. 3. Functional quadriplegia. 4. Schizophrenia. Continue Risperdal as above. 5. Dysphagia. The patient is status post PEG. 6. Cardiology=Dr Diaz 7. GI=Obey Stahl MD May 08, 2020 15:02
[2020-05-08] MEDS: Dyna-Hex 2% Top Sol 2oz TOPIC SCH (19:45)
--- NOTE | 2020-05-08 20:23 | Infectious Diseases Prog Note ---
Assessment/Plan Assessment: Septic Shock- off pressors now Pneumonia- COVID 19 neg x2 (on same day) Acute hypoxic resp failure- s/p intubation 05/02 -05/04 CXR: Dense consolidation of the right mid and lower lung, right pleural effusion are unchanged. Left lung and pleural space remain clear. -05/02 Sp cx PsA (pham S), E. aerogenes (R Ancef; otherwise S), S. aureus ( sensi p) -05/02 CXR: There is a moderately consolidating infiltrate in the right lower lobe consistent with pneumonia. rapid COVID neg, COVI PCR neg - previously neg: -02/26 SARS-COV2 pCR neg; 02/28 SARS-COV 2 pcr neg -Bc xNTD Probable UTI -u/a wbc 10-15, nit neg, leul +2 ; ucx <10k ESBL. P. mirabilis (S Zosyn, meropenem) FEver (up to 105.3); fever curve improved but ongoing fever leukocytosis; increased TOMAS; SP Recent Sepsis 2ry to ESBL K.pna bacteremia and Pneumonia 02/2020 -Bcx 3/4 ESBL K.pna (S Levo, Meropenem, ZOsyn); 03/01 Bcx Neg -sp cx ESBL K.pna -02/27 sp removal PICC Line; cath tip cx Neg muscle weakness and atrophy (not characterized) psychiatric disorder dysphagia s/p GT [place] resident ( [facility]) Dementia seizure disorder Plan: -COntinue Meropenem # 7/10-14 for UTI and PNA and IV Vancomycin #7 for PNA pending S. aureus sensi -05/05 SP Amikacin #4 -05/02 SP CEfepime x1 , Azithromycin x1 -f/u cx -Monitor CBC/CMP, temperatures -COVID19 neg x2; continue isolation until afebrile > 24 hrs -ICU/ETT/PEG care -aspiration precautions - may consider to change Valporic acid ( pt on Merrem ) Thank you for consulting [facility]. Will continue to follow along with you. Joy troncoso RN. Subjective Allergies: Coded Allergies: DIPHENHYDRAMINE (Verified Allergy, Unknown, 02/27/20) afebrile WBC increased Objective Last 24 Hour Vital Signs Date Time Temp Pulse Resp B/P (MAP) Pulse Ox O2 Delivery O2 Flow Rate FiO2 05/08/20 19:00 16 108/79 Mechanical Ventilator 40 05/08/20 19:00 129 15 108/79 99 Mechanical Ventilator 30 05/08/20 18:58 126 21 40 05/08/20 18:30 132 18 110/71 98 Mechanical Ventilator 30 05/08/20 18:15 126 15 101/54 92 Mechanical Ventilator 30 05/08/20 18:00 129 16 106/67 90 Mechanical Ventilator 30 05/08/20 18:00 16 106/67 Mechanical Ventilator 40 05/08/20 17:45 128 17 104/73 94 Mechanical Ventilator 30 05/08/20 17:30 124 14 94/62 91 Mechanical Ventilator 30 05/08/20 17:15 125 16 98/58 92 Mechanical Ventilator 30 05/08/20 17:00 124 17 98/63 97 Mechanical Ventilator 30 05/08/20 17:00 17 98/63 Mechanical Ventilator 40 05/08/20 16:45 125 17 97/58 95 Mechanical Ventilator 30 05/08/20 16:30 125 15 97/55 96 Mechanical Ventilator 30 05/08/20 16:15 123 16 109/60 97 Mechanical Ventilator 30 05/08/20 16:11 40 05/08/20 16:00 97.5 131 18 128/62 95 Mechanical Ventilator 30 05/08/20 16:00 Endotracheal Tube 05/08/20 16:00 40 05/08/20 16:00 142 05/08/20 16:00 18 128/62 Mechanical Ventilator 40 05/08/20 15:45 141 24 123/90 94 Mechanical Ventilator 30 05/08/20 15:30 137 21 30 05/08/20 15:30 127 21 110/66 98 Mechanical Ventilator 30 05/08/20 15:15 125 21 107/74 97 Mechanical Ventilator 30 05/08/20 15:00 121 21 101/47 98 Mechanical Ventilator 30 05/08/20 15:00 17 101/47 Mechanical Ventilator 30 05/08/20 14:45 117 17 101/56 99 Mechanical Ventilator 30 05/08/20 14:30 128 15 99/57 98 Mechanical Ventilator 30 05/08/20 14:30 26 101/58 Mechanical Ventilator 30 05/08/20 14:29 101/58 05/08/20 14:15 132 19 101/58 99 Mechanical Ventilator 30 05/08/20 14:00 17 114/72 Mechanical Ventilator 30 05/08/20 14:00 131 17 114/72 96 Mechanical Ventilator 30 05/08/20 13:45 130 18 113/68 93 Mechanical Ventilator 30 05/08/20 13:30 129 19 94/57 91 Mechanical Ventilator 30 05/08/20 13:15 122 15 102/64 94 Mechanical Ventilator 30 05/08/20 13:00 120 18 105/62 94 Mechanical Ventilator 30 05/08/20 13:00 17 105/62 Mechanical Ventilator 30 05/08/20 12:30 114 17 101/78 99 Mechanical Ventilator 30 05/08/20 12:00 Endotracheal Tube 05/08/20 12:00 30 05/08/20 12:00 18 101/38 Mechanical Ventilator 30 05/08/20 12:00 98.0 115 18 101/38 100 Mechanical Ventilator 30 05/08/20 12:00 115 05/08/20 11:30 106 18 91/54 99 Mechanical Ventilator 30 05/08/20 11:09 111 20 30 05/08/20 11:00 102 18 93/52 100 Mechanical Ventilator 30 05/08/20 11:00 17 93/52 Mechanical Ventilator 30 05/08/20 10:30 100 19 98/48 99 Mechanical Ventilator 30 05/08/20 10:00 110 17 96/66 97 Mechanical Ventilator 30 05/08/20 10:00 19 96/66 Mechanical Ventilator 30 05/08/20 09:45 112 16 107/74 98 Mechanical Ventilator 30 05/08/20 09:30 115 21 108/56 97 Mechanical Ventilator 30 05/08/20 09:15 121 23 105/58 98 Mechanical Ventilator 30 05/08/20 09:00 123 20 103/63 100 Mechanical Ventilator 30 05/08/20 09:00 19 103/63 Mechanical Ventilator 30 05/08/20 08:45 129 21 108/63 100 Mechanical Ventilator 30 05/08/20 08:36 97.0 05/08/20 08:30 137 22 109/62 99 Mechanical Ventilator 30 05/08/20 08:15 141 26 120/75 100 Mechanical Ventilator 30 05/08/20 08:00 99.3 138 23 77/52 100 Mechanical Ventilator 30 05/08/20 08:00 23 77/52 Mechanical Ventilator 30 05/08/20 08:00 Endotracheal Tube 05/08/20 08:00 139 05/08/20 08:00 30 05/08/20 07:45 138 25 116/67 100 Mechanical Ventilator 30 05/08/20 07:30 138 26 118/75 100 Mechanical Ventilator 30 05/08/20 07:15 143 23 124/92 100 Mechanical Ventilator 30 05/08/20 07:08 141 24 30 05/08/20 07:00 141 23 114/64 98 Mechanical Ventilator 30 05/08/20 07:00 23 114/64 Mechanical Ventilator 30 05/08/20 06:30 127 23 108/66 98 Mechanical Ventilator 30 05/08/20 06:30 127 23 05/08/20 06:00 21 100/53 Mechanical Ventilator 30 05/08/20 06:00 125 21 100/53 97 Mechanical Ventilator 30 05/08/20 05:30 117 21 101/59 100 Mechanical Ventilator 30 05/08/20 05:01 21 112/63 Mechanical Ventilator 30 05/08/20 05:00 22 100/67 Mechanical Ventilator 30 05/08/20 05:00 122 22 100/67 99 Mechanical Ventilator 30 05/08/20 04:30 125 21 96/49 99 Mechanical Ventilator 30 05/08/20 04:08 123 21 100/77 98 Mechanical Ventilator 30 05/08/20 04:00 30 05/08/20 04:00 122 05/08/20 04:00 Endotracheal Tube 05/08/20 04:00 21 82/56 Mechanical Ventilator 30 05/08/20 04:00 97.0 122 21 82/56 100 Mechanical Ventilator 30 05/08/20 03:32 136 26 30 05/08/20 03:30 131 23 126/55 96 Mechanical Ventilator 30 05/08/20 03:17 109/63 05/08/20 03:00 20 109/63 Mechanical Ventilator 30 05/08/20 03:00 129 23 109/63 94 Mechanical Ventilator 30 05/08/20 02:30 128 25 120/69 97 Mechanical Ventilator 30 05/08/20 02:00 24 111/68 Mechanical Ventilator 30 05/08/20 02:00 126 24 111/68 100 Mechanical Ventilator 30 05/08/20 01:30 127 22 97/62 100 Mechanical Ventilator 30 05/08/20 01:00 109 18 99/52 100 Mechanical Ventilator 30 05/08/20 01:00 18 99/52 Mechanical Ventilator 30 05/08/20 00:45 110 17 98/60 100 Mechanical Ventilator 30 05/08/20 00:30 107 17 92/63 100 Mechanical Ventilator 30 05/08/20 00:15 111 20 102/63 100 Mechanical Ventilator 30 05/08/20 00:12 103 19 91/47 100 Mechanical Ventilator 30 05/08/20 00:10 102 18 80/49 100 Mechanical Ventilator 30 05/08/20 00:05 73/37 05/08/20 00:00 97.8 98 16 73/37 100 Mechanical Ventilator 30 05/08/20 00:00 16 73/37 Mechanical Ventilator 30 05/08/20 00:00 Endotracheal Tube 05/08/20 00:00 30 05/08/20 00:00 98 05/07/20 23:30 122 21 123/43 100 Mechanical Ventilator 30 05/07/20 23:29 103 22 30 05/07/20 23:00 116 19 99/44 100 Mechanical Ventilator 30 05/07/20 23:00 19 99/44 Mechanical Ventilator 30 05/07/20 22:30 124 22 115/29 100 Mechanical Ventilator 30 05/07/20 22:00 108 19 102/60 100 Mechanical Ventilator 05/07/20 22:00 19 102/60 Mechanical Ventilator 30 05/07/20 21:30 111 20 99/51 100 Mechanical Ventilator 30 05/07/20 21:00 111 18 98/46 100 Mechanical Ventilator 30 05/07/20 21:00 18 98/46 Mechanical Ventilator 30 05/07/20 20:30 117 22 114/45 100 Mechanical Ventilator 30 Height (Feet): 5 Height (Inches): 8.00 Weight (Pounds): 152 HEENT: atraumatic Respiratory/Chest: normal breath sounds Cardiovascular: normal rate Abdomen: soft, non tender Microbiology Date/Time Source Procedure Growth Status 05/07/20 16:00 Nasopharynx SARS-CoV-2 RdRp Gene Assay - Final Complete Laboratory Tests Test 05/07/20 22:30 05/08/20 04:30 05/08/20 07:08 Vancomycin Level Trough 15.6 ug/mL (5.0-12.0) H White Blood Count 18.5 K/UL (4.8-10.8) H Red Blood Count 3.12 M/UL (4.70-6.10) L Hemoglobin 9.8 G/DL (14.2-18.0) L Hematocrit 30.0 % (42.0-52.0) L Mean Corpuscular Volume 96 FL (80-99) Mean Corpuscular Hemoglobin 31.4 PG (27.0-31.0) H Mean Corpuscular Hemoglobin Concent 32.6 G/DL (32.0-36.0) Red Cell Distribution Width 12.8 % (11.6-14.8) Platelet Count 301 K/UL (150-450) # Mean Platelet Volume 7.6 FL (6.5-10.1) Neutrophils (%) (Auto) % (45.0-75.0) Lymphocytes (%) (Auto) % (20.0-45.0) Monocytes (%) (Auto) % (1.0-10.0) Eosinophils (%) (Auto) % (0.0-3.0) Basophils (%) (Auto) % (0.0-2.0) Differential Total Cells Counted 100 Neutrophils % (Manual) 92 % (45-75) H Lymphocytes % (Manual) 7 % (20-45) L Monocytes % (Manual) 1 % (1-10) Eosinophils % (Manual) 0 % (0-3) Basophils % (Manual) 0 % (0-2) Band Neutrophils 0 % (0-8) Platelet Estimate Adequate Platelet Morphology Normal Hypochromasia 1+ Sodium Level 135 MMOL/L (136-145) L Potassium Level 4.7 MMOL/L (3.5-5.1) Chloride Level 102 MMOL/L (98-107) Carbon Dioxide Level 17 MMOL/L (21-32) L Anion Gap 16 mmol/L (5-15) H Blood Urea Nitrogen 12 mg/dL (7-18) Creatinine 1.0 MG/DL (0.55-1.30) Estimat Glomerular Filtration Rate > 60 mL/min (>60) Glucose Level 73 MG/DL (74-106) L Calcium Level 8.5 MG/DL (8.5-10.1) Phosphorus Level 3.7 MG/DL (2.5-4.9) Magnesium Level 1.5 MG/DL (1.8-2.4) L Total Bilirubin 0.4 MG/DL (0.2-1.0) Aspartate Amino Transf (AST/SGOT) 59 U/L (15-37) H Alanine Aminotransferase (ALT/SGPT) 42 U/L (12-78) Alkaline Phosphatase 52 U/L (46-116) Total Protein 5.5 G/DL (6.4-8.2) L Albumin 1.9 G/DL (3.4-5.0) L Globulin 3.6 g/dL Albumin/Globulin Ratio 0.5 (1.0-2.7) L Arterial Blood pH 7.181 (7.350-7.450) Arterial Blood Partial Pressure CO2 33.8 mmHg (35.0-45.0) L Arterial Blood Partial Pressure O2 75.9 mmHg (75.0-100.0) Arterial Blood HCO3 12.4 mmol/L (22.0-26.0) *L Arterial Blood Oxygen Saturation 92.5 % (95-100) L Arterial Blood Base Excess -14.9 (-2-2) *L Nicolas Test Positive Current Medications Medications (Trade) Dose Ordered Sig/Damion Route PRN Reason Start Time Stop Time Status Last Admin Dose Admin Acetaminophen (Tylenol) 650 mg Q4H PRN GT fever 05/02/20 12:45 06/01/20 12:44 05/08/20 08:06 Aspirin (ASA) 81 mg DAILY GT 05/05/20 09:00 06/19/20 08:59 05/08/20 08:02 Chlorhexidine Gluconate (Marci-Hex 2%) 1 applic DAILY@1999 TOPIC 05/03/20 20:00 08/01/20 19:59 05/08/20 19:45 Dextrose/Sodium Chloride 1,000 ml @ 50 mls/hr Q20H IV 05/08/20 10:30 06/07/20 10:29 05/08/20 10:21 Fentanyl Citrate 250 ml @ 0 mls/hr Q24H IV 05/03/20 22:03 08/01/20 22:02 05/08/20 14:30 Heparin Sodium (Porcine) (Heparin 5000 units/ml) 5,000 units EVERY 12 HOURS SUBQ 05/02/20 21:00 06/16/20 20:59 05/08/20 08:02 Levetiracetam (Keppra) 700 mg Q12HR GT 05/02/20 21:00 06/01/20 20:59 05/08/20 08:02 Lorazepam (Ativan 2mg/ml 1ml) 2 mg Q2H PRN IV For Anxiety 05/02/20 12:45 05/09/20 12:44 05/08/20 08:06 Meropenem 1 gm/ Sodium Chloride 55 ml @ 110 mls/hr Q8HR IVPB 05/02/20 15:00 05/11/20 23:59 05/08/20 13:59 Metoclopramide HCl (Reglan) 10 mg Q6H IVP 05/08/20 10:00 06/07/20 09:59 05/08/20 16:28 Midodrine (Pro-Amatine) 10 mg Q8HR GT 05/04/20 22:00 08/02/20 21:59 05/08/20 13:59 Morphine Sulfate (Morphine Sulfate) 4 mg Q4H PRN IVP Severe Pain (Pain Scale 7-10) 05/02/20 12:45 05/09/20 12:44 Norepinephrine Bitartrate 250 ml @ 0 mls/hr Q24H IV 05/02/20 12:48 07/31/20 12:47 05/08/20 14:29 Ondansetron HCl (Zofran) 4 mg Q6H PRN IVP Nausea & Vomiting 05/02/20 12:45 06/01/20 12:44 Pantoprazole (Protonix) 40 mg Q12HR IVP 05/04/20 21:00 06/02/20 08:59 05/08/20 08:01 Polyethylene Glycol (Miralax) 17 gm DAILYPRN PRN GT Constipation 05/02/20 12:45 06/01/20 12:44 Sodium Bicarbonate (Sodium Bicarbonate) 50 ml ONCE IV 05/08/20 10:00 06/07/20 09:59 05/08/20 10:21 Valproic Acid (Depakene) 500 mg DAILY GT 05/06/20 09:00 06/02/20 08:59 05/08/20 08:01 Vancomycin HCl (Vanco pharmacy to dose) 1 ea DAILY PRN MISC Per rx protocol 05/05/20 09:45 06/04/20 09:44 Vancomycin HCl 750 mg/Sodium Chloride 275 ml @ 183.333 mls/hr Q8H IVPB 05/07/20 00:00 05/12/20 00:00 05/08/20 16:28 Adithya Ellison MD May 08, 2020 20:23
[2020-05-09] VITALS (52 sets, daily range): BP systolic 75–160; BP diastolic 41–101
[2020-05-09] MEDS: fentaNYL 2500mcg/NS 250ml 250 ML IV SCH ×2 (03:09→19:12)
[2020-05-09] MEDS: Metoclopramide 10mg/2ml Inj IVP SCH ×4 (03:37→22:07)
[2020-05-09 05:16] LABS: HEMATOCRIT 23.8 % (42.0-52.0); HEMOGLOBIN 7.6 G/DL (14.2-18.0); MEAN CORPUSCULAR VOLUME 97 FL (80-99); PLATELET COUNT 278 K/UL (150-450); RED BLOOD COUNT 2.46 M/UL (4.70-6.10); RED CELL DISTRIBUTION WIDTH 12.7 % (11.6-14.8); WHITE BLOOD COUNT 12.8 K/UL (4.8-10.8)
[2020-05-09] MEDS: Meropenem 1 GM in NS 55 ML IVPB SCH ×3 (05:49→22:07)
[2020-05-09] MEDS: Dextrose 10%/0.9% SOD CHL 1,000 ML IV SCH (05:49)
[2020-05-09] MEDS: Midodrine 10mg tab GT SCH ×3 (05:49→22:00)
[2020-05-09 05:59] LABS: ALANINE AMINOTRANSFERASE 32 U/L (12-78); ALBUMIN 1.5 G/DL (3.4-5.0); ALBUMIN/GLOBULIN RATIO 0.5 (1.0-2.7); ALKALINE PHOSPHATASE 43 U/L (46-116); ANION GAP 15 mmol/L (5-15); ASPARTATE AMINO TRANSFERASE 30 U/L (15-37); BILIRUBIN,TOTAL 0.4 MG/DL (0.2-1.0); BLOOD UREA NITROGEN 12 mg/dL (7-18); CARBON DIOXIDE 17 MMOL/L (21-32); CHLORIDE 108 MMOL/L (98-107); CREATININE 1.1 MG/DL (0.55-1.30); PHOSPHORUS 2.5 MG/DL (2.5-4.9); POTASSIUM 3.9 MMOL/L (3.5-5.1); SODIUM 140 MMOL/L (136-145)
[2020-05-09] MEDS ORDERED: NS 275ml ONE (08:24)
[2020-05-09] MEDS: levETIRAcetam 500mg/5ml Liquid GT SCH ×2 (10:11→20:47)
[2020-05-09] MEDS: Norepinephrine 4mg/NS Premix 250 ML IV SCH (10:12)
[2020-05-09] MEDS: Valproic Acid 250mg/5ml Liquid GT SCH (10:12)
[2020-05-09] MEDS: Pantoprazole Inj IVP SCH ×2 (10:12→20:47)
[2020-05-09] MEDS: Aspirin Baby 81mg GT SCH (10:13)
[2020-05-09] MEDS: Vancomycin 750 MG in NS 275 ML IVPB SCH ×3 (10:13→23:37)
[2020-05-09] MEDS: Heparin 5000 units/ml inj SUBQ SCH ×2 (10:36→20:48)
--- NOTE | 2020-05-09 10:42 | Nephrology Progress Note ---
Assessment/Plan Problem List: (1) Electrolyte imbalance (2) Dehydration (3) Acute respiratory failure (4) Seizure disorder Assessment Severe electrolyte abnormalities Low magnesium, low phosphorus, low potassium, Other active conditions: (1) Acute respiratory failure (2) Sepsis (3) Nosocomial pneumonia (4) Seizure disorder (5) Dehydration (6) COPD (chronic obstructive pulmonary disease) (7) pen[facility]iary resident (8) History of CVA (cerebrovascular accident) Plan May 09: Patient remains tachycardic. 2D echocardiogram done results pending. 1 dose of IV digoxin ordered. Discussed with ASAD Dixon. Remains stable from renal standpoint of view. May 08: Magnesium sulfate IV ordered for hypomagnesemia. Patient has metabolic acidosis. IV sodium bicarb given. Feeding on hold due to residual. IV Reglan ordered. IV fluid changed to D10 normal saline. 2D echocardiogram ordered for tachycardia. Chest x-ray suggests worsening pulmonary infiltrate. Discussed with ASAD Stevens Remains stable from renal standpoint of view Discussed with RN mag , phosphorus and potassium supplement as needed Monitor electrolytes Continue per consultants Subjective ROS Limited/Unobtainable: Yes Objective Objective Last 24 Hour Vital Signs Date Time Temp Pulse Resp B/P (MAP) Pulse Ox O2 Delivery O2 Flow Rate FiO2 05/09/20 10:12 86/46 05/09/20 07:00 17 89/47 Mechanical Ventilator 40 05/09/20 07:00 108 17 89/47 100 Mechanical Ventilator 40 05/09/20 06:45 106 19 40 05/09/20 06:30 113 17 103/48 100 05/09/20 06:30 113 17 103/48 100 Mechanical Ventilator 40 05/09/20 06:30 113 17 05/09/20 06:15 115 18 98/44 100 Mechanical Ventilator 40 05/09/20 06:00 108 19 137/59 100 Mechanical Ventilator 40 05/09/20 06:00 19 137/59 Mechanical Ventilator 40 05/09/20 05:30 92 16 103/55 100 Mechanical Ventilator 40 05/09/20 05:00 93 16 95/53 100 Mechanical Ventilator 40 05/09/20 05:00 16 95/53 Mechanical Ventilator 40 05/09/20 04:30 96 16 85/48 100 Mechanical Ventilator 40 05/09/20 04:00 Endotracheal Tube 05/09/20 04:00 40 05/09/20 04:00 107 05/09/20 04:00 17 95/48 Mechanical Ventilator 40 05/09/20 04:00 99.8 107 17 95/48 100 Mechanical Ventilator 40 05/09/20 03:30 124 21 116/54 100 Mechanical Ventilator 40 05/09/20 03:09 19 98/51 Mechanical Ventilator 40 05/09/20 03:09 95 22 40 05/09/20 03:00 19 98/51 Mechanical Ventilator 40 05/09/20 03:00 94 19 98/51 100 Mechanical Ventilator 40 05/09/20 02:30 94 18 92/41 100 Mechanical Ventilator 40 05/09/20 02:00 97 18 90/48 100 Mechanical Ventilator 40 05/09/20 02:00 18 90/48 Mechanical Ventilator 40 05/09/20 01:30 99 17 90/45 100 Mechanical Ventilator 40 05/09/20 01:15 98 17 93/54 100 Mechanical Ventilator 40 05/09/20 01:00 17 89/50 Mechanical Ventilator 40 05/09/20 01:00 94 17 89/50 100 Mechanical Ventilator 40 05/09/20 00:36 96 16 84/47 100 Mechanical Ventilator 40 05/09/20 00:30 16 81/46 Mechanical Ventilator 40 05/09/20 00:30 96 16 81/46 100 Mechanical Ventilator 40 05/09/20 00:25 97 16 75/43 100 Mechanical Ventilator 40 05/09/20 00:15 100 16 78/47 100 Mechanical Ventilator 40 05/09/20 00:15 16 78/47 Mechanical Ventilator 40 05/09/20 00:00 40 05/09/20 00:00 109 05/09/20 00:00 16 84/45 Mechanical Ventilator 40 05/09/20 00:00 Endotracheal Tube 05/09/20 00:00 99.2 109 16 84/45 100 Mechanical Ventilator 40 05/08/20 23:30 127 22 100/80 100 Mechanical Ventilator 40 05/08/20 23:00 18 109/57 Mechanical Ventilator 40 05/08/20 23:00 127 18 109/57 100 Mechanical Ventilator 40 05/08/20 22:56 125 23 40 05/08/20 22:30 128 17 104/56 100 Mechanical Ventilator 40 05/08/20 22:00 118 17 117/92 100 Mechanical Ventilator 40 05/08/20 22:00 17 117/92 Mechanical Ventilator 40 05/08/20 21:30 119 16 104/73 100 Mechanical Ventilator 40 05/08/20 21:00 124 16 92/64 100 Mechanical Ventilator 40 05/08/20 21:00 16 92/64 Mechanical Ventilator 40 05/08/20 20:30 122 16 93/62 99 Mechanical Ventilator 40 7 20:24 128 7 20:00 Endotracheal Tube 05/08/20 20:00 98.0 120 13 105/69 100 Mechanical Ventilator 40 05/08/20 20:00 13 105/69 Non-Rebreather 40 05/08/20 20:00 40 05/08/20 19:30 124 14 120/75 100 Mechanical Ventilator 40 05/08/20 19:00 16 108/79 Mechanical Ventilator 40 05/08/20 19:00 129 15 108/79 99 Mechanical Ventilator 30 05/08/20 18:58 126 21 40 05/08/20 18:30 132 18 110/71 98 Mechanical Ventilator 30 05/08/20 18:15 126 15 101/54 92 Mechanical Ventilator 30 05/08/20 18:00 129 16 106/67 90 Mechanical Ventilator 30 05/08/20 18:00 16 106/67 Mechanical Ventilator 40 05/08/20 17:45 128 17 104/73 94 Mechanical Ventilator 30 05/08/20 17:30 124 14 94/62 91 Mechanical Ventilator 30 05/08/20 17:15 125 16 98/58 92 Mechanical Ventilator 30 05/08/20 17:00 124 17 98/63 97 Mechanical Ventilator 30 05/08/20 17:00 17 98/63 Mechanical Ventilator 40 05/08/20 16:45 125 17 97/58 95 Mechanical Ventilator 30 05/08/20 16:30 125 15 97/55 96 Mechanical Ventilator 30 05/08/20 16:15 123 16 109/60 97 Mechanical Ventilator 30 05/08/20 16:11 40 05/08/20 16:00 97.5 131 18 128/62 95 Mechanical Ventilator 30 05/08/20 16:00 Endotracheal Tube 05/08/20 16:00 40 05/08/20 16:00 142 05/08/20 16:00 18 128/62 Mechanical Ventilator 40 05/08/20 15:45 141 24 123/90 94 Mechanical Ventilator 30 05/08/20 15:30 137 21 30 05/08/20 15:30 127 21 110/66 98 Mechanical Ventilator 30 05/08/20 15:15 125 21 107/74 97 Mechanical Ventilator 30 05/08/20 15:00 121 21 101/47 98 Mechanical Ventilator 30 05/08/20 15:00 17 101/47 Mechanical Ventilator 30 05/08/20 14:45 117 17 101/56 99 Mechanical Ventilator 30 05/08/20 14:30 128 15 99/57 98 Mechanical Ventilator 30 05/08/20 14:30 26 101/58 Mechanical Ventilator 30 05/08/20 14:29 101/58 05/08/20 14:15 132 19 101/58 99 Mechanical Ventilator 30 05/08/20 14:00 17 114/72 Mechanical Ventilator 30 05/08/20 14:00 131 17 114/72 96 Mechanical Ventilator 30 05/08/20 13:45 130 18 113/68 93 Mechanical Ventilator 30 05/08/20 13:30 129 19 94/57 91 Mechanical Ventilator 30 05/08/20 13:15 122 15 102/64 94 Mechanical Ventilator 30 05/08/20 13:00 120 18 105/62 94 Mechanical Ventilator 30 05/08/20 13:00 17 105/62 Mechanical Ventilator 30 05/08/20 12:30 114 17 101/78 99 Mechanical Ventilator 30 05/08/20 12:00 Endotracheal Tube 05/08/20 12:00 30 05/08/20 12:00 18 101/38 Mechanical Ventilator 30 05/08/20 12:00 98.0 115 18 101/38 100 Mechanical Ventilator 30 05/08/20 12:00 115 05/08/20 11:30 106 18 91/54 99 Mechanical Ventilator 30 05/08/20 11:09 111 20 30 05/08/20 11:00 102 18 93/52 100 Mechanical Ventilator 30 05/08/20 11:00 17 93/52 Mechanical Ventilator 30 Intake and Output 05/08/20 05/09/20 19:00 07:00 Intake Total 2001.000 ml 1505.250 ml Output Total 1040 ml 795 ml Balance 961.000 ml 710.250 ml Intake Free Water 20 ml IV Total 1941.000 ml 1380.250 ml Tube Feeding 40 ml 5 ml Other 120 ml Output Urine Total 1040 ml 795 ml Laboratory Tests 05/09/20 04:00: White Blood Count 12.8H, Red Blood Count 2.46L, Hemoglobin 7.6L, Hematocrit 23.8L, Mean Corpuscular Volume 97, Mean Corpuscular Hemoglobin 31.0, Mean Corpuscular Hemoglobin Concent 32.1, Red Cell Distribution Width 12.7, Platelet Count 278, Mean Platelet Volume 7.3, Neutrophils (%) (Auto) , Lymphocytes (%) ( Auto) , Monocytes (%) (Auto) , Eosinophils (%) (Auto) , Basophils (%) (Auto) , Differential Total Cells Counted 100, Neutrophils % (Manual) 95H, Lymphocytes % (Manual) 3L, Monocytes % (Manual) 2, Eosinophils % (Manual) 0, Basophils % ( Manual) 0, Band Neutrophils 0, Platelet Estimate Adequate, Platelet Morphology Normal, Hypochromasia 1+, Erythrocyte Sedimentation Rate 78H, Sodium Level 140, Potassium Level 3.9, Chloride Level 108H, Carbon Dioxide Level 17L, Anion Gap 15 , Blood Urea Nitrogen 12, Creatinine 1.1, Estimat Glomerular Filtration Rate > 60, Glucose Level 95, Calcium Level 8.0L, Phosphorus Level 2.5, Magnesium Level 1.9, Total Bilirubin 0.4, Aspartate Amino Transf (AST/SGOT) 30, Alanine Aminotransferase (ALT/SGPT) 32, Alkaline Phosphatase 43L, C-Reactive Protein, Quantitative 26.7H, Total Protein 4.8L, Albumin 1.5L, Globulin 3.3, Albumin/ Globulin Ratio 0.5L Height (Feet): 5 Height (Inches): 8.00 Weight (Pounds): 156 General Appearance: no apparent distress EENT: other Cardiovascular: tachycardia Respiratory/Chest: decreased breath sounds Abdomen: distended Kin Bustillo MD May 09, 2020 10:42
[2020-05-09] MEDS ORDERED: Digoxin 0.5mg/2ml Inj IVP SCH ×2 (10:45→16:15)
--- NOTE | 2020-05-09 13:30 | Consultation ---
DATE OF CONSULTATION: 05/09/2020 CONSULTING PHYSICIAN: Clarke Liu MD. CHIEF COMPLAINT: Elevated residuals. HISTORY OF PRESENT ILLNESS: Most of the history is per chart. This is a 59-year-old patient, [facility] the jail mainly with shortness of breath and diagnosed to have pneumonia, has highly elevated G-tube residuals, . GI consult requested for evaluation. PAST MEDICAL HISTORY: 1. CVA. 2. Seizure disorder. 3. Functional quadriplegia. 4. Schizophrenia. 5. Dysphagia with G-tube. ALLERGIES: Diphenhydramine. MEDICATIONS: Please see medication reconciliation list. SOCIAL HISTORY: Currently lives in a jail. No history of tobacco, alcohol, or drug abuse. PAST SURGICAL HISTORY: None. FAMILY HISTORY: Noncontributory. REVIEW OF SYSTEMS: Unable to obtain. PHYSICAL EXAMINATION: VITAL SIGNS: Temperature is 99.8, pulse is 108, respiration is 17, blood pressure is 89/47. HEENT: Normocephalic and atraumatic. NECK: Supple. No evidence of obvious lymphadenopathy. CARDIOVASCULAR: Tachy. Regular rate. Plus S1. LUNGS: Decreased breath sounds bilaterally diffusely, more right compared to left. ABDOMEN: Soft, mildly distended. Bowel sounds are distant. G-tube in place. No rebound. No guarding. No peritoneal sign. EXTREMITIES: No cyanosis. No clubbing. LABORATORY DATA: White count is 12.8, hemoglobin 7.6, hematocrit 23, platelets are 278,000. Chem-7 sodium 140, potassium 3.9, BUN is 12, creatinine is 1.1. ASSESSMENT AND PLAN: This is a 59-year-old male with right-sided pneumonia and multiple other medical problems, admitted to the hospital now with elevated residuals with profound anemia. PLAN: Given the patient has not had a bowel movement for a few days, we are going to hold off feeding for today. Order stat KUB to rule out stool impaction or severe constipation as a cause of the elevated residuals. The patient currently on Reglan. Continue current medication. In terms of his anemia and drop in hemoglobin and hematocrit, per nurse there is no obvious GI bleeding. G-tube lavage has not shown any evidence of any bleeding in the stomach. Plan to monitor hemoglobin and hematocrit. Continue on PPI. Send the stool for OB and anemia workup. I want to thank Dr. Marky Go and Dr. Cisneros, for this kind referral. Clarke Liu M.D. DR: ADDISON JOB#: [id number] CC: Obey Cisneros MD.; Fax#: [phone]
--- NOTE | 2020-05-09 16:09 | Internal Med Progress Note ---
Subjective Date of Service: May 09, 2020 Physician Name AmeliaObey Attending Physician Marky Go MD Current Medications Medications (Trade) Dose Ordered Sig/Damion Route PRN Reason Start Time Stop Time Status Last Admin Dose Admin Acetaminophen (Tylenol) 650 mg Q4H PRN GT fever 05/02/20 12:45 06/01/20 12:44 05/08/20 08:06 Aspirin (ASA) 81 mg DAILY GT 05/05/20 09:00 06/19/20 08:59 05/09/20 10:13 Chlorhexidine Gluconate (Marci-Hex 2%) 1 applic DAILY@2000 TOPIC 05/03/20 20:00 08/01/20 19:59 05/08/20 19:45 Dextrose/Sodium Chloride 1,000 ml @ 50 mls/hr Q20H IV 05/08/20 10:30 06/07/20 10:29 05/09/20 05:49 Fentanyl Citrate 250 ml @ 0 mls/hr Q24H IV 05/03/20 22:03 08/01/20 22:02 05/09/20 03:09 Heparin Sodium (Porcine) (Heparin 5000 units/ml) 5,000 units EVERY 12 HOURS SUBQ 05/02/20 21:00 06/16/20 20:59 05/09/20 10:36 Levetiracetam (Keppra) 700 mg Q12HR GT 05/02/20 21:00 06/01/20 20:59 05/09/20 10:11 Meropenem 1 gm/ Sodium Chloride 55 ml @ 110 mls/hr Q8HR IVPB 05/02/20 15:00 05/11/20 23:59 05/09/20 05:49 Metoclopramide HCl (Reglan) 10 mg Q6H IVP 05/08/20 10:00 06/07/20 09:59 05/09/20 10:14 Midodrine (Pro-Amatine) 10 mg Q8HR GT 05/04/20 22:00 08/02/20 21:59 05/09/20 05:49 Norepinephrine Bitartrate 250 ml @ 0 mls/hr Q24H IV 05/02/20 12:48 07/31/20 12:47 05/09/20 10:12 Ondansetron HCl (Zofran) 4 mg Q6H PRN IVP Nausea & Vomiting 05/02/20 12:45 06/01/20 12:44 Pantoprazole (Protonix) 40 mg Q12HR IVP 05/04/20 21:00 06/02/20 08:59 05/09/20 10:12 Polyethylene Glycol (Miralax) 17 gm DAILYPRN PRN GT Constipation 05/02/20 12:45 06/01/20 12:44 Valproic Acid (Depakene) 500 mg DAILY GT 05/06/20 09:00 06/02/20 08:59 05/09/20 10:12 Vancomycin HCl ([facility] pharmacy to dose) 1 ea DAILY PRN MISC Per rx protocol 05/05/20 09:45 06/04/20 09:44 Vancomycin HCl 750 mg/Sodium Chloride 275 ml @ 183.333 mls/hr Q8H IVPB 05/07/20 00:00 05/12/20 00:00 05/09/20 10:13 Allergies: Coded Allergies: DIPHENHYDRAMINE (Verified Allergy, Unknown, 02/27/20) ROS Limited/Unobtainable: Yes Subjective 59 YO M admitted with respiratory failure. Now pneumonia. Intubated and sedated. Cover for Int [facility]-Dr Go. ICU Objective Last Vital Signs Date Time Temp Pulse Resp B/P (MAP) Pulse Ox O2 Delivery O2 Flow Rate FiO2 05/09/20 16:00 98.6 120 21 100/42 100 Mechanical Ventilator 40 05/06/20 10:19 15.0 Laboratory Tests Test 05/09/20 04:00 White Blood Count 12.8 K/UL (4.8-10.8) H Red Blood Count 2.46 M/UL (4.70-6.10) L Hemoglobin 7.6 G/DL (14.2-18.0) L Hematocrit 23.8 % (42.0-52.0) L Mean Corpuscular Volume 97 FL (80-99) Mean Corpuscular Hemoglobin 31.0 PG (27.0-31.0) Mean Corpuscular Hemoglobin Concent 32.1 G/DL (32.0-36.0) Red Cell Distribution Width 12.7 % (11.6-14.8) Platelet Count 278 K/UL (150-450) Mean Platelet Volume 7.3 FL (6.5-10.1) Neutrophils (%) (Auto) % (45.0-75.0) Lymphocytes (%) (Auto) % (20.0-45.0) Monocytes (%) (Auto) % (1.0-10.0) Eosinophils (%) (Auto) % (0.0-3.0) Basophils (%) (Auto) % (0.0-2.0) Differential Total Cells Counted 100 Neutrophils % (Manual) 95 % (45-75) H Lymphocytes % (Manual) 3 % (20-45) L Monocytes % (Manual) 2 % (1-10) Eosinophils % (Manual) 0 % (0-3) Basophils % (Manual) 0 % (0-2) Band Neutrophils 0 % (0-8) Platelet Estimate Adequate Platelet Morphology Normal Hypochromasia 1+ Erythrocyte Sedimentation Rate 78 MM/HR (0-20) H Sodium Level 140 MMOL/L (136-145) Potassium Level 3.9 MMOL/L (3.5-5.1) Chloride Level 108 MMOL/L (98-107) H Carbon Dioxide Level 17 MMOL/L (21-32) L Anion Gap 15 mmol/L (5-15) Blood Urea Nitrogen 12 mg/dL (7-18) Creatinine 1.1 MG/DL (0.55-1.30) Estimat Glomerular Filtration Rate > 60 mL/min (>60) Glucose Level 95 MG/DL (74-106) Calcium Level 8.0 MG/DL (8.5-10.1) L Phosphorus Level 2.5 MG/DL (2.5-4.9) Magnesium Level 1.9 MG/DL (1.8-2.4) Total Bilirubin 0.4 MG/DL (0.2-1.0) Aspartate Amino Transf (AST/SGOT) 30 U/L (15-37) Alanine Aminotransferase (ALT/SGPT) 32 U/L (12-78) Alkaline Phosphatase 43 U/L (46-116) L C-Reactive Protein, Quantitative 26.7 mg/dL (0.00-0.90) H Total Protein 4.8 G/DL (6.4-8.2) L Albumin 1.5 G/DL (3.4-5.0) L Globulin 3.3 g/dL Albumin/Globulin Ratio 0.5 (1.0-2.7) L Microbiology Date/Time Source Procedure Growth Status 05/07/20 16:00 Nasopharynx SARS-CoV-2 RdRp Gene Assay - Final Complete Intake and Output 05/08/20 05/09/20 19:00 07:00 Intake Total 2001.000 ml 1505.250 ml Output Total 1040 ml 795 ml Balance 961.000 ml 710.250 ml Intake Free Water 20 ml IV Total 1941.000 ml 1380.250 ml Tube Feeding 40 ml 5 ml Other 120 ml Output Urine Total 1040 ml 795 ml Objective PHYSICAL EXAMINATION: GENERAL: The patient is a thin-appearing male, in severe respiratory distress. HEENT: Eyes, pupils equal and responsive to light and accommodation. Extraocular movements are intact. NECK: Supple. No lymphadenopathy. CHEST: Mech Vent; Decreased breath sounds bilaterally without rales. CARDIOVASCULAR: Tachycardic, regular rhythm. S1 and S2 are normal without murmurs, rubs, or gallops. ABDOMEN: Soft, nontender, and nondistended. Positive bowel sounds. No evidence of hepatosplenomegaly. Currently, no rebound or guarding noted. EXTREMITIES: Negative for clubbing, cyanosis, or edema. RECTAL/GENITAL: Not performed. NEUROLOGICAL: Unable to assess Assessment/Plan Assessment/Plan ASSESSMENT: This is a 59-year-old male. 1. Shortness of breath. 2. Hypoxia. 3. Right lower lobe pneumonia=enterobacter, pseudamonas, and staph aureus 4. Acute respiratory failure. 5. History of cerebrovascular accident. 6. Seizure disorder. 7. Functional quadriplegia. 8. Schizophrenia. 9. Dysphagia. 10. Urinary tract infection=proteus mirabilis 11. Sinus Tachycardia 12.Inceased tube feed residuals TREATMENT: 1. Respiratory failure/pneumonia. Intubated; A pulmonary consultation has been obtained with Dr. Ana Maria Hansen. The patient was febrile on admission. Antibiotics= vancomycin and meropenem. We will follow recommendations of Pulmonary. 2. Seizure disorder. Continue Keppra, Depakote as above. 3. Functional quadriplegia. 4. Schizophrenia. Continue Risperdal as above. 5. Dysphagia. The patient is status post PEG. 6. Cardiology=Dr Diaz 7. GI=Obey Stahl MD May 09, 2020 16:09
--- NOTE | 2020-05-09 19:55 | Pulmonology Progress Note ---
Subjective ROS Limited/Unobtainable: Yes Allergies: Coded Allergies: DIPHENHYDRAMINE (Verified Allergy, Unknown, 02/27/20) Objective Last 24 Hour Vital Signs Date Time Temp Pulse Resp B/P (MAP) Pulse Ox O2 Delivery O2 Flow Rate FiO2 05/09/20 19:12 31 156/60 Mechanical Ventilator 40 05/09/20 19:00 149 31 156/60 99 Mechanical Ventilator 40 05/09/20 19:00 26 156/60 Mechanical Ventilator 40 05/09/20 18:30 100.3 148 33 109/76 99 Mechanical Ventilator 40 05/09/20 18:00 31 143/72 Mechanical Ventilator 40 05/09/20 18:00 100.6 150 31 143/72 98 Mechanical Ventilator 40 05/09/20 17:30 100.6 150 27 146/56 97 Mechanical Ventilator 40 05/09/20 17:07 147 05/09/20 17:00 100.6 146 26 160/66 97 Mechanical Ventilator 40 05/09/20 17:00 26 146/56 Mechanical Ventilator 40 05/09/20 16:30 100.6 144 26 133/73 97 Mechanical Ventilator 40 05/09/20 16:00 98.6 120 21 100/42 100 Mechanical Ventilator 40 05/09/20 16:00 117 05/09/20 16:00 21 106/46 Mechanical Ventilator 40 05/09/20 16:00 40 05/09/20 16:00 Endotracheal Tube 05/09/20 15:29 131 24 40 05/09/20 15:00 98.6 136 25 137/58 98 Mechanical Ventilator 40 05/09/20 15:00 27 137/58 Mechanical Ventilator 40 05/09/20 14:30 98.6 140 26 128/101 96 Mechanical Ventilator 40 05/09/20 14:00 98.6 143 27 144/53 97 Mechanical Ventilator 40 05/09/20 14:00 27 133/73 Mechanical Ventilator 40 05/09/20 13:30 98.6 143 24 140/70 97 Mechanical Ventilator 40 05/09/20 13:00 98.3 143 22 144/62 97 Mechanical Ventilator 40 05/09/20 13:00 22 127/75 Mechanical Ventilator 40 05/09/20 12:30 98.9 142 23 138/61 98 Mechanical Ventilator 40 05/09/20 12:00 98.9 142 23 95/52 98 Mechanical Ventilator 40 05/09/20 12:00 40 05/09/20 12:00 142 05/09/20 12:00 25 137/83 Mechanical Ventilator 40 05/09/20 12:00 Endotracheal Tube 05/09/20 11:30 99.0 141 25 122/66 97 Mechanical Ventilator 40 05/09/20 11:00 100.6 139 25 137/65 97 Mechanical Ventilator 40 05/09/20 11:00 25 137/65 Mechanical Ventilator 40 05/09/20 10:55 137 29 40 05/09/20 10:30 100.7 138 26 118/50 97 Mechanical Ventilator 40 05/09/20 10:12 86/46 05/09/20 10:00 100.7 98 23 125/49 98 Mechanical Ventilator 40 05/09/20 10:00 23 125/49 Mechanical Ventilator 40 05/09/20 09:30 100.4 107 18 89/47 100 Mechanical Ventilator 40 05/09/20 09:00 100.1 105 18 105/52 100 Mechanical Ventilator 40 05/09/20 09:00 18 105/52 Mechanical Ventilator 40 05/09/20 08:30 100.1 97 18 109/48 100 Mechanical Ventilator 40 05/09/20 08:00 40 05/09/20 08:00 16 106/56 Mechanical Ventilator 40 05/09/20 08:00 91 05/09/20 08:00 100.0 90 16 106/56 100 Mechanical Ventilator 40 05/09/20 08:00 Endotracheal Tube 05/09/20 07:30 100.0 94 16 94/49 100 Mechanical Ventilator 40 05/09/20 07:00 17 89/47 Mechanical Ventilator 40 05/09/20 07:00 108 17 89/47 100 Mechanical Ventilator 40 05/09/20 06:45 106 19 40 05/09/20 06:30 113 17 103/48 100 05/09/20 06:30 113 17 103/48 100 Mechanical Ventilator 40 05/09/20 06:30 113 17 05/09/20 06:15 115 18 98/44 100 Mechanical Ventilator 40 05/09/20 06:00 108 19 137/59 100 Mechanical Ventilator 40 05/09/20 06:00 19 137/59 Mechanical Ventilator 40 05/09/20 05:30 92 16 103/55 100 Mechanical Ventilator 40 05/09/20 05:00 93 16 95/53 100 Mechanical Ventilator 40 05/09/20 05:00 16 95/53 Mechanical Ventilator 40 05/09/20 04:30 96 16 85/48 100 Mechanical Ventilator 40 05/09/20 04:00 Endotracheal Tube 05/09/20 04:00 40 05/09/20 04:00 107 05/09/20 04:00 17 95/48 Mechanical Ventilator 40 05/09/20 04:00 99.8 107 17 95/48 100 Mechanical Ventilator 40 05/09/20 03:30 124 21 116/54 100 Mechanical Ventilator 40 05/09/20 03:09 19 98/51 Mechanical Ventilator 40 05/09/20 03:09 95 22 40 05/09/20 03:00 19 98/51 Mechanical Ventilator 40 05/09/20 03:00 94 19 98/51 100 Mechanical Ventilator 40 05/09/20 02:30 94 18 92/41 100 Mechanical Ventilator 40 05/09/20 02:00 97 18 90/48 100 Mechanical Ventilator 40 05/09/20 02:00 18 90/48 Mechanical Ventilator 40 05/09/20 01:30 99 17 90/45 100 Mechanical Ventilator 40 05/09/20 01:15 98 17 93/54 100 Mechanical Ventilator 40 05/09/20 01:00 17 89/50 Mechanical Ventilator 40 05/09/20 01:00 94 17 89/50 100 Mechanical Ventilator 40 05/09/20 00:36 96 16 84/47 100 Mechanical Ventilator 40 05/09/20 00:30 16 81/46 Mechanical Ventilator 40 05/09/20 00:30 96 16 81/46 100 Mechanical Ventilator 40 05/09/20 00:25 97 16 75/43 100 Mechanical Ventilator 40 05/09/20 00:15 100 16 78/47 100 Mechanical Ventilator 40 05/09/20 00:15 16 78/47 Mechanical Ventilator 40 05/09/20 00:00 40 05/09/20 00:00 109 05/09/20 00:00 16 84/45 Mechanical Ventilator 40 05/09/20 00:00 Endotracheal Tube 05/09/20 00:00 99.2 109 16 84/45 100 Mechanical Ventilator 40 05/08/20 23:30 127 22 100/80 100 Mechanical Ventilator 40 05/08/20 23:00 18 109/57 Mechanical Ventilator 40 05/08/20 23:00 127 18 109/57 100 Mechanical Ventilator 40 05/08/20 22:56 125 23 40 7/25/20 22:30 128 17 104/56 100 Mechanical Ventilator 40 05/08/20 22:00 118 17 117/92 100 Mechanical Ventilator 40 05/08/20 22:00 17 117/92 Mechanical Ventilator 40 05/08/20 21:30 119 16 104/73 100 Mechanical Ventilator 40 05/08/20 21:00 124 16 92/64 100 Mechanical Ventilator 40 05/08/20 21:00 16 92/64 Mechanical Ventilator 40 05/08/20 20:30 122 16 93/62 99 Mechanical Ventilator 40 05/08/20 20:24 128 05/08/20 20:00 Endotracheal Tube 05/08/20 20:00 98.0 120 13 105/69 100 Mechanical Ventilator 40 05/08/20 20:00 13 105/69 Non-Rebreather 40 05/08/20 20:00 40 Intake and Output 05/08/20 05/09/20 19:00 07:00 Intake Total 2001.000 ml 1505.250 ml Output Total 1040 ml 795 ml Balance 961.000 ml 710.250 ml Intake Free Water 20 ml IV Total 1941.000 ml 1380.250 ml Tube Feeding 40 ml 5 ml Other 120 ml Output Urine Total 1040 ml 795 ml General Appearance: WD/WN HEENT: normocephalic Respiratory: rhonchi - left, rhonchi - right Cardiovascular: normal peripheral pulses, normal rate Abdomen: normal bowel sounds, soft, non tender Microbiology Date/Time Source Procedure Growth Status 05/07/20 16:00 Nasopharynx SARS-CoV-2 RdRp Gene Assay - Final Complete Laboratory Tests 05/09/20 04:00: White Blood Count 12.8H, Red Blood Count 2.46L, Hemoglobin 7.6L, Hematocrit 23.8L, Mean Corpuscular Volume 97, Mean Corpuscular Hemoglobin 31.0, Mean Corpuscular Hemoglobin Concent 32.1, Red Cell Distribution Width 12.7, Platelet Count 278, Mean Platelet Volume 7.3, Neutrophils (%) (Auto) , Lymphocytes (%) ( Auto) , Monocytes (%) (Auto) , Eosinophils (%) (Auto) , Basophils (%) (Auto) , Differential Total Cells Counted 100, Neutrophils % (Manual) 95H, Lymphocytes % (Manual) 3L, Monocytes % (Manual) 2, Eosinophils % (Manual) 0, Basophils % ( Manual) 0, Band Neutrophils 0, Platelet Estimate Adequate, Platelet Morphology Normal, Hypochromasia 1+, Erythrocyte Sedimentation Rate 78H, Sodium Level 140, Potassium Level 3.9, Chloride Level 108H, Carbon Dioxide Level 17L, Anion Gap 15 , Blood Urea Nitrogen 12, Creatinine 1.1, Estimat Glomerular Filtration Rate > 60, Glucose Level 95, Calcium Level 8.0L, Phosphorus Level 2.5, Magnesium Level 1.9, Total Bilirubin 0.4, Aspartate Amino Transf (AST/SGOT) 30, Alanine Aminotransferase (ALT/SGPT) 32, Alkaline Phosphatase 43L, C-Reactive Protein, Quantitative 26.7H, Total Protein 4.8L, Albumin 1.5L, Globulin 3.3, Albumin/ Globulin Ratio 0.5L Current Medications Medications (Trade) Dose Ordered Sig/Damion Route PRN Reason Start Time Stop Time Status Last Admin Dose Admin Acetaminophen (Tylenol) 650 mg Q4H PRN GT fever 05/02/20 12:45 06/01/20 12:44 05/08/20 08:06 Aspirin (ASA) 81 mg DAILY GT 05/05/20 09:00 06/19/20 08:59 05/09/20 10:13 Chlorhexidine Gluconate (Marci-Hex 2%) 1 applic DAILY@2000 TOPIC 05/03/20 20:00 08/01/20 19:59 05/08/20 19:45 Dextrose/Sodium Chloride 1,000 ml @ 50 mls/hr Q20H IV 05/08/20 10:30 06/07/20 10:29 05/09/20 05:49 Fentanyl Citrate 250 ml @ 0 mls/hr Q24H IV 05/03/20 22:03 08/01/20 22:02 05/09/20 19:12 Heparin Sodium (Porcine) (Heparin 5000 units/ml) 5,000 units EVERY 12 HOURS SUBQ 05/02/20 21:00 06/16/20 20:59 05/09/20 10:36 Levetiracetam (Keppra) 700 mg Q12HR GT 05/02/20 21:00 06/01/20 20:59 05/09/20 10:11 Meropenem 1 gm/ Sodium Chloride 55 ml @ 110 mls/hr Q8HR IVPB 05/02/20 15:00 05/11/20 23:59 05/09/20 16:22 Metoclopramide HCl (Reglan) 10 mg Q6H IVP 05/08/20 10:00 06/07/20 09:59 05/09/20 16:22 Midodrine (Pro-Amatine) 10 mg Q8HR GT 05/04/20 22:00 08/02/20 21:59 05/09/20 16:22 Norepinephrine Bitartrate 250 ml @ 0 mls/hr Q24H IV 05/02/20 12:48 07/31/20 12:47 05/09/20 10:12 Ondansetron HCl (Zofran) 4 mg Q6H PRN IVP Nausea & Vomiting 05/02/20 12:45 06/01/20 12:44 Pantoprazole (Protonix) 40 mg Q12HR IVP 05/04/20 21:00 06/02/20 08:59 05/09/20 10:12 Polyethylene Glycol (Miralax) 17 gm DAILYPRN PRN GT Constipation 05/02/20 12:45 06/01/20 12:44 Valproic Acid (Depakene) 500 mg DAILY GT 05/06/20 09:00 06/02/20 08:59 05/09/20 10:12 Vancomycin HCl ([facility] pharmacy to dose) 1 ea DAILY PRN MISC Per rx protocol 05/05/20 09:45 06/04/20 09:44 Vancomycin HCl 750 mg/Sodium Chloride 275 ml @ 183.333 mls/hr Q8H IVPB 05/07/20 00:00 05/12/20 00:00 05/09/20 17:06 Assessment/Plan Problems: (1) Acute respiratory failure (2) Nosocomial pneumonia (3) COPD (chronic obstructive pulmonary disease) (4) Seizure disorder (5) History of CVA (cerebrovascular accident) (6) Muscle wasting and atrophy, not elsewhere classified, multiple sites Respiratory: monitor respiratory rate, adjust FIO2, CXR Cardiac: continue to monitor HR/BP Renal: F/U I&O, keep IV fluid, check electrolytes Infectious Disease: check cultures, continue antibiotics Gastrointestinal: continue feedings/current rate Endocrine: monitor blood sugar Hematologic: monitor H/H, transfuse if hgb<8.5 Neurologic: PRN Ativan, keep patient comfortable Disposition: keep in ICU 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
[2020-05-09] MEDS: Dyna-Hex 2% Top Sol 2oz TOPIC SCH (20:13)
[2020-05-10] VITALS (46 sets, daily range): BP systolic 78–149; BP diastolic 45–113
[2020-05-10] MEDS: Dextrose 10%/0.9% SOD CHL 1,000 ML IV SCH ×2 (02:28→22:05)
[2020-05-10] MEDS: Metoclopramide 10mg/2ml Inj IVP SCH ×4 (03:13→22:02)
[2020-05-10] MEDS: fentaNYL 2500mcg/NS 250ml 250 ML IV SCH ×3 (04:47→19:18)
[2020-05-10 04:55] LABS: HEMATOCRIT 28.7 % (42.0-52.0); HEMOGLOBIN 9.3 G/DL (14.2-18.0); MEAN CORPUSCULAR VOLUME 96 FL (80-99); PLATELET COUNT 123 K/UL (150-450); RED BLOOD COUNT 2.99 M/UL (4.70-6.10); RED CELL DISTRIBUTION WIDTH 12.9 % (11.6-14.8); WHITE BLOOD COUNT 17.1 K/UL (4.8-10.8)
[2020-05-10 05:08] LABS: PHOSPHORUS 2.3 MG/DL (2.5-4.9)
[2020-05-10 05:09] LABS: ALBUMIN 1.8 G/DL (3.4-5.0); ALBUMIN/GLOBULIN RATIO 0.5 (1.0-2.7); ALKALINE PHOSPHATASE 56 U/L (46-116); ANION GAP 12 mmol/L (5-15); ASPARTATE AMINO TRANSFERASE 22 U/L (15-37); BILIRUBIN,TOTAL 0.5 MG/DL (0.2-1.0); BLOOD UREA NITROGEN 9 mg/dL (7-18); CALCIUM 8.5 MG/DL (8.5-10.1); CARBON DIOXIDE 24 MMOL/L (21-32); CHLORIDE 107 MMOL/L (98-107); CREATININE 0.9 MG/DL (0.55-1.30); POTASSIUM 3.2 MMOL/L (3.5-5.1); SODIUM 143 MMOL/L (136-145)
[2020-05-10] MEDS: Meropenem 1 GM in NS 55 ML IVPB SCH ×3 (06:05→22:03)
[2020-05-10] MEDS: Midodrine 10mg tab GT SCH ×3 (06:07→22:02)
[2020-05-10 06:17] LABS: % IRON SATURATION 4 % (15-50); IRON 9 ug/dL (50-175); TOTAL IRON BINDING CAPACITY 252 ug/dL (250-450)
--- NOTE | 2020-05-10 06:55 | General Progress Note ---
Assessment/Plan Assessment/Plan: 1. CVA. 2. Seizure disorder. 3. Functional quadriplegia. 4. Schizophrenia. 5. Dysphagia with G-tube. 6. iron def anemia 7. Constipation KUB iv iron fu labs GTF based on kub results bowel regimen Subjective ROS Limited/Unobtainable: No Allergies: Coded Allergies: DIPHENHYDRAMINE (Verified Allergy, Unknown, 02/27/20) Objective Last 24 Hour Vital Signs Date Time Temp Pulse Resp B/P (MAP) Pulse Ox O2 Delivery O2 Flow Rate FiO2 05/10/20 06:30 138 19 05/10/20 06:15 129 27 119/74 97 Mechanical Ventilator 40 05/10/20 06:03 114 21 109/57 100 Mechanical Ventilator 40 05/10/20 06:00 24 109/57 Mechanical Ventilator 40 05/10/20 06:00 112 20 106/57 99 Mechanical Ventilator 40 05/10/20 05:30 111 17 102/45 98 Mechanical Ventilator 40 05/10/20 05:00 24 95/52 Mechanical Ventilator 40 05/10/20 05:00 98.9 121 21 114/60 95 Mechanical Ventilator 40 05/10/20 04:47 23 128/93 Mechanical Ventilator 40 05/10/20 04:30 131 27 128/113 96 Mechanical Ventilator 40 05/10/20 04:00 131 05/10/20 04:00 Endotracheal Tube 05/10/20 04:00 29 149/70 Mechanical Ventilator 40 05/10/20 04:00 137 29 149/70 97 Mechanical Ventilator 05/10/20 04:00 40 05/10/20 03:10 129 32 40 05/10/20 03:00 132 29 142/65 97 Mechanical Ventilator 40 05/10/20 03:00 29 142/65 Mechanical Ventilator 40 05/10/20 02:00 126 23 127/65 99 Mechanical Ventilator 40 05/10/20 02:00 23 127/65 Mechanical Ventilator 40 05/10/20 01:30 105 17 95/46 100 Mechanical Ventilator 40 05/10/20 01:00 112 20 95/46 98 Mechanical Ventilator 40 05/10/20 01:00 20 94/56 Mechanical Ventilator 40 05/10/20 00:30 98.6 118 24 107/56 97 Mechanical Ventilator 40 05/10/20 00:00 40 05/10/20 00:00 132 05/10/20 00:00 126 28 125/47 99 Mechanical Ventilator 40 05/10/20 00:00 16 117/56 Mechanical Ventilator 40 05/10/20 00:00 Endotracheal Tube 05/09/20 23:30 131 27 127/76 99 Mechanical Ventilator 40 05/09/20 23:27 127 26 40 05/09/20 23:00 131 29 141/66 96 Mechanical Ventilator 40 05/09/20 23:00 16 164/54 Mechanical Ventilator 40 05/09/20 22:30 137 30 153/67 98 Mechanical Ventilator 40 05/09/20 22:00 98.8 135 30 159/66 99 Mechanical Ventilator 40 05/09/20 22:00 30 159/60 Mechanical Ventilator 40 05/09/20 21:30 139 31 157/59 97 Mechanical Ventilator 40 05/09/20 21:00 139 31 148/54 98 Mechanical Ventilator 40 05/09/20 21:00 31 148/54 Mechanical Ventilator 40 05/09/20 20:30 141 31 141/70 99 Mechanical Ventilator 40 05/09/20 20:00 40 05/09/20 20:00 146 05/09/20 20:00 99.5 140 31 139/60 99 Mechanical Ventilator 40 05/09/20 20:00 31 139/60 Mechanical Ventilator 40 05/09/20 20:00 Endotracheal Tube 05/09/20 19:50 144 32 40 05/09/20 19:30 144 32 145/60 98 Mechanical Ventilator 40 05/09/20 19:12 31 156/60 Mechanical Ventilator 40 05/09/20 19:00 149 31 156/60 99 Mechanical Ventilator 40 05/09/20 19:00 26 156/60 Mechanical Ventilator 40 05/09/20 18:30 100.3 148 33 109/76 99 Mechanical Ventilator 40 05/09/20 18:00 31 143/72 Mechanical Ventilator 40 05/09/20 18:00 100.6 150 31 143/72 98 Mechanical Ventilator 40 05/09/20 17:30 100.6 150 27 146/56 97 Mechanical Ventilator 40 05/09/20 17:07 147 05/09/20 17:00 100.6 146 26 160/66 97 Mechanical Ventilator 40 05/09/20 17:00 26 146/56 Mechanical Ventilator 40 05/09/20 16:30 100.6 144 26 133/73 97 Mechanical Ventilator 40 05/09/20 16:00 98.6 120 21 100/42 100 Mechanical Ventilator 40 05/09/20 16:00 117 05/09/20 16:00 21 106/46 Mechanical Ventilator 40 05/09/20 16:00 40 05/09/20 16:00 Endotracheal Tube 05/09/20 15:29 131 24 40 05/09/20 15:00 98.6 136 25 137/58 98 Mechanical Ventilator 40 05/09/20 15:00 27 137/58 Mechanical Ventilator 40 05/09/20 14:30 98.6 140 26 128/101 96 Mechanical Ventilator 40 05/09/20 14:00 98.6 143 27 144/53 97 Mechanical Ventilator 40 05/09/20 14:00 27 133/73 Mechanical Ventilator 40 05/09/20 13:30 98.6 143 24 140/70 97 Mechanical Ventilator 40 05/09/20 13:00 98.3 143 22 144/62 97 Mechanical Ventilator 40 05/09/20 13:00 22 127/75 Mechanical Ventilator 40 05/09/20 12:30 98.9 142 23 138/61 98 Mechanical Ventilator 40 05/09/20 12:00 98.9 142 23 95/52 98 Mechanical Ventilator 40 05/09/20 12:00 40 05/09/20 12:00 142 05/09/20 12:00 25 137/83 Mechanical Ventilator 40 05/09/20 12:00 Endotracheal Tube 05/09/20 11:30 99.0 141 25 122/66 97 Mechanical Ventilator 40 05/09/20 11:00 100.6 139 25 137/65 97 Mechanical Ventilator 40 05/09/20 11:00 25 137/65 Mechanical Ventilator 40 05/09/20 10:55 137 29 40 05/09/20 10:30 100.7 138 26 118/50 97 Mechanical Ventilator 40 05/09/20 10:12 86/46 05/09/20 10:00 100.7 98 23 125/49 98 Mechanical Ventilator 40 05/09/20 10:00 23 125/49 Mechanical Ventilator 40 05/09/20 09:30 100.4 107 18 89/47 100 Mechanical Ventilator 40 05/09/20 09:00 100.1 105 18 105/52 100 Mechanical Ventilator 40 05/09/20 09:00 18 105/52 Mechanical Ventilator 40 05/09/20 08:30 100.1 97 18 109/48 100 Mechanical Ventilator 40 05/09/20 08:00 40 05/09/20 08:00 16 106/56 Mechanical Ventilator 40 05/09/20 08:00 91 05/09/20 08:00 100.0 90 16 106/56 100 Mechanical Ventilator 40 05/09/20 08:00 Endotracheal Tube 05/09/20 07:30 100.0 94 16 94/49 100 Mechanical Ventilator 40 05/09/20 07:00 17 89/47 Mechanical Ventilator 40 05/09/20 07:00 108 17 89/47 100 Mechanical Ventilator 40 Intake and Output 05/09/20 05/10/20 19:00 07:00 Intake Total 1821.499 ml 1086.200 ml Output Total 1565 ml 2725 ml Balance 256.499 ml -1638.800 ml IV Total 1686.499 ml 1086.200 ml Tube Feeding 0 ml Other 135 ml Output Urine Total 1565 ml 2725 ml Laboratory Tests 05/10/20 04:00: White Blood Count 17.1H, Red Blood Count 2.99L, Hemoglobin 9.3L, Hematocrit 28.7L, Mean Corpuscular Volume 96, Mean Corpuscular Hemoglobin 31.1H, Mean Corpuscular Hemoglobin Concent 32.4, Red Cell Distribution Width 12.9, Platelet Count 123#L, Mean Platelet Volume 7.1, Neutrophils (%) (Auto) , Lymphocytes (%) (Auto) , Monocytes (%) (Auto) , Eosinophils (%) (Auto) , Basophils (%) (Auto) , Neutrophils % (Manual) [Pending], Lymphocytes % (Manual) [Pending], Platelet Estimate [Pending], Platelet Morphology [Pending], Sodium Level 143, Potassium Level 3.2L, Chloride Level 107, Carbon Dioxide Level 24, Anion Gap 12, Blood Urea Nitrogen 9, Creatinine 0.9, Estimat Glomerular Filtration Rate > 60, Glucose Level 105, Calcium Level 8.5, Phosphorus Level 2.3L, Magnesium Level 1.5L, Iron Level 9L, Total Iron Binding Capacity 252, Percent Iron Saturation 4L , Unsaturated Iron Binding 243, Total Bilirubin 0.5, Aspartate Amino Transf (AST /SGOT) 22, Alanine Aminotransferase (ALT/SGPT) [Pending], Alkaline Phosphatase 56, Total Protein 5.5L, Albumin 1.8L, Globulin 3.7, Albumin/Globulin Ratio 0.5L , Vitamin B12 Level > 2000H, Folate 15.6 Height (Feet): 5 Height (Inches): 8.00 Weight (Pounds): 156 General Appearance: lethargic EENT: normal ENT inspection Neck: normal alignment Cardiovascular: tachycardia Respiratory/Chest: decreased breath sounds Abdomen: hypoactive bowel sounds Extremities: non-tender Clarke Liu MD May 10, 2020 06:55
[2020-05-10 07:32] LABS: ALANINE AMINOTRANSFERASE 35 U/L (12-78)
[2020-05-10] MEDS: Pantoprazole Inj IVP SCH (08:23)
[2020-05-10] MEDS: levETIRAcetam 500mg/5ml Liquid GT SCH ×2 (08:23→20:52)
[2020-05-10] MEDS: Acetaminophen 650mg/20.3ml GT PRN (08:26)
[2020-05-10] MEDS: Vancomycin 750 MG in NS 275 ML IVPB SCH ×3 (08:28→16:38)
[2020-05-10] MEDS: Heparin 5000 units/ml inj SUBQ SCH ×2 (08:29→21:00)
[2020-05-10] MEDS: Aspirin Baby 81mg GT SCH (08:29)
--- NOTE | 2020-05-10 08:35 | Cardiac Electrophysiology PN ---
Subjective Subjective [id number] Objective Last 24 Hour Vital Signs Date Time Temp Pulse Resp B/P (MAP) Pulse Ox O2 Delivery O2 Flow Rate FiO2 05/10/20 07:00 30 124/79 Mechanical Ventilator 40 05/10/20 07:00 146 30 124/79 94 Mechanical Ventilator 40 05/10/20 06:30 138 19 05/10/20 06:15 129 27 119/74 97 Mechanical Ventilator 40 05/10/20 06:03 114 21 109/57 100 Mechanical Ventilator 40 05/10/20 06:00 24 109/57 Mechanical Ventilator 40 05/10/20 06:00 112 20 106/57 99 Mechanical Ventilator 40 05/10/20 05:30 111 17 102/45 98 Mechanical Ventilator 40 05/10/20 05:00 24 95/52 Mechanical Ventilator 40 05/10/20 05:00 98.9 121 21 114/60 95 Mechanical Ventilator 40 05/10/20 04:47 23 128/93 Mechanical Ventilator 40 05/10/20 04:30 131 27 128/113 96 Mechanical Ventilator 40 05/10/20 04:00 131 05/10/20 04:00 Endotracheal Tube 05/10/20 04:00 29 149/70 Mechanical Ventilator 40 05/10/20 04:00 137 29 149/70 97 Mechanical Ventilator 05/10/20 04:00 40 05/10/20 03:10 129 32 40 05/10/20 03:00 132 29 142/65 97 Mechanical Ventilator 40 05/10/20 03:00 29 142/65 Mechanical Ventilator 40 05/10/20 02:00 126 23 127/65 99 Mechanical Ventilator 40 05/10/20 02:00 23 127/65 Mechanical Ventilator 40 05/10/20 01:30 105 17 95/46 100 Mechanical Ventilator 40 05/10/20 01:00 112 20 95/46 98 Mechanical Ventilator 40 05/10/20 01:00 20 94/56 Mechanical Ventilator 40 05/10/20 00:30 98.6 118 24 107/56 97 Mechanical Ventilator 40 05/10/20 00:00 40 05/10/20 00:00 132 05/10/20 00:00 126 28 125/47 99 Mechanical Ventilator 40 05/10/20 00:00 16 117/56 Mechanical Ventilator 40 05/10/20 00:00 Endotracheal Tube 05/09/20 23:30 131 27 127/76 99 Mechanical Ventilator 40 05/09/20 23:27 127 26 40 05/09/20 23:00 131 29 141/66 96 Mechanical Ventilator 40 05/09/20 23:00 16 164/54 Mechanical Ventilator 40 05/09/20 22:30 137 30 153/67 98 Mechanical Ventilator 40 05/09/20 22:00 98.8 135 30 159/66 99 Mechanical Ventilator 40 05/09/20 22:00 30 159/60 Mechanical Ventilator 40 05/09/20 21:30 139 31 157/59 97 Mechanical Ventilator 40 05/09/20 21:00 139 31 148/54 98 Mechanical Ventilator 40 05/09/20 21:00 31 148/54 Mechanical Ventilator 40 05/09/20 20:30 141 31 141/70 99 Mechanical Ventilator 40 05/09/20 20:00 40 05/09/20 20:00 146 05/09/20 20:00 99.5 140 31 139/60 99 Mechanical Ventilator 40 05/09/20 20:00 31 139/60 Mechanical Ventilator 40 05/09/20 20:00 Endotracheal Tube 05/09/20 19:50 144 32 40 05/09/20 19:30 144 32 145/60 98 Mechanical Ventilator 40 05/09/20 19:12 31 156/60 Mechanical Ventilator 40 05/09/20 19:00 149 31 156/60 99 Mechanical Ventilator 40 05/09/20 19:00 26 156/60 Mechanical Ventilator 40 05/09/20 18:30 100.3 148 33 109/76 99 Mechanical Ventilator 40 05/09/20 18:00 31 143/72 Mechanical Ventilator 40 05/09/20 18:00 100.6 150 31 143/72 98 Mechanical Ventilator 40 05/09/20 17:30 100.6 150 27 146/56 97 Mechanical Ventilator 40 05/09/20 17:07 147 05/09/20 17:00 100.6 146 26 160/66 97 Mechanical Ventilator 40 05/09/20 17:00 26 146/56 Mechanical Ventilator 40 05/09/20 16:30 100.6 144 26 133/73 97 Mechanical Ventilator 40 05/09/20 16:00 98.6 120 21 100/42 100 Mechanical Ventilator 40 05/09/20 16:00 117 05/09/20 16:00 21 106/46 Mechanical Ventilator 40 05/09/20 16:00 40 05/09/20 16:00 Endotracheal Tube 05/09/20 15:29 131 24 40 05/09/20 15:00 98.6 136 25 137/58 98 Mechanical Ventilator 40 05/09/20 15:00 27 137/58 Mechanical Ventilator 40 05/09/20 14:30 98.6 140 26 128/101 96 Mechanical Ventilator 40 05/09/20 14:00 98.6 143 27 144/53 97 Mechanical Ventilator 40 05/09/20 14:00 27 133/73 Mechanical Ventilator 40 05/09/20 13:30 98.6 143 24 140/70 97 Mechanical Ventilator 40 05/09/20 13:00 98.3 143 22 144/62 97 Mechanical Ventilator 40 05/09/20 13:00 22 127/75 Mechanical Ventilator 40 05/09/20 12:30 98.9 142 23 138/61 98 Mechanical Ventilator 40 05/09/20 12:00 98.9 142 23 95/52 98 Mechanical Ventilator 40 05/09/20 12:00 40 05/09/20 12:00 142 05/09/20 12:00 25 137/83 Mechanical Ventilator 40 05/09/20 12:00 Endotracheal Tube 05/09/20 11:30 99.0 141 25 122/66 97 Mechanical Ventilator 40 05/09/20 11:00 100.6 139 25 137/65 97 Mechanical Ventilator 40 05/09/20 11:00 25 137/65 Mechanical Ventilator 40 05/09/20 10:55 137 29 40 05/09/20 10:30 100.7 138 26 118/50 97 Mechanical Ventilator 40 05/09/20 10:12 86/46 05/09/20 10:00 100.7 98 23 125/49 98 Mechanical Ventilator 40 05/09/20 10:00 23 125/49 Mechanical Ventilator 40 05/09/20 09:30 100.4 107 18 89/47 100 Mechanical Ventilator 40 05/09/20 09:00 100.1 105 18 105/52 100 Mechanical Ventilator 40 05/09/20 09:00 18 105/52 Mechanical Ventilator 40 Intake and Output 05/09/20 05/10/20 19:00 07:00 Intake Total 1821.499 ml 1219.200 ml Output Total 1565 ml 2925 ml Balance 256.499 ml -1705.800 ml IV Total 1686.499 ml 1219.200 ml Tube Feeding 0 ml Other 135 ml Output Urine Total 1565 ml 2925 ml Laboratory Tests Test 05/10/20 04:00 05/10/20 08:00 White Blood Count 17.1 K/UL (4.8-10.8) H Red Blood Count 2.99 M/UL (4.70-6.10) L Hemoglobin 9.3 G/DL (14.2-18.0) L Hematocrit 28.7 % (42.0-52.0) L Mean Corpuscular Volume 96 FL (80-99) Mean Corpuscular Hemoglobin 31.1 PG (27.0-31.0) H Mean Corpuscular Hemoglobin Concent 32.4 G/DL (32.0-36.0) Red Cell Distribution Width 12.9 % (11.6-14.8) Platelet Count 123 K/UL (150-450) #L Mean Platelet Volume 7.1 FL (6.5-10.1) Neutrophils (%) (Auto) % (45.0-75.0) Lymphocytes (%) (Auto) % (20.0-45.0) Monocytes (%) (Auto) % (1.0-10.0) Eosinophils (%) (Auto) % (0.0-3.0) Basophils (%) (Auto) % (0.0-2.0) Neutrophils % (Manual) Pending Lymphocytes % (Manual) Pending Platelet Estimate Pending Platelet Morphology Pending Sodium Level 143 MMOL/L (136-145) Potassium Level 3.2 MMOL/L (3.5-5.1) L Chloride Level 107 MMOL/L (98-107) Carbon Dioxide Level 24 MMOL/L (21-32) Anion Gap 12 mmol/L (5-15) Blood Urea Nitrogen 9 mg/dL (7-18) Creatinine 0.9 MG/DL (0.55-1.30) Estimat Glomerular Filtration Rate > 60 mL/min (>60) Glucose Level 105 MG/DL (74-106) Calcium Level 8.5 MG/DL (8.5-10.1) Phosphorus Level 2.3 MG/DL (2.5-4.9) L Magnesium Level 1.5 MG/DL (1.8-2.4) L Iron Level 9 ug/dL (50-175) L Total Iron Binding Capacity 252 ug/dL (250-450) Percent Iron Saturation 4 % (15-50) L Unsaturated Iron Binding 243 ug/dL (112-346) Total Bilirubin 0.5 MG/DL (0.2-1.0) Aspartate Amino Transf (AST/SGOT) 22 U/L (15-37) Alanine Aminotransferase (ALT/SGPT) 35 U/L (12-78) Alkaline Phosphatase 56 U/L (46-116) Total Protein 5.5 G/DL (6.4-8.2) L Albumin 1.8 G/DL (3.4-5.0) L Globulin 3.7 g/dL Albumin/Globulin Ratio 0.5 (1.0-2.7) L Vitamin B12 Level > 2000 PG/ML (193-986) H Folate 15.6 NG/ML (8.6-58.9) Arterial Blood pH Pending Arterial Blood Partial Pressure CO2 Pending Arterial Blood Partial Pressure O2 Pending Arterial Blood HCO3 Pending Arterial Blood Oxygen Saturation Pending Arterial Blood Base Excess Pending Nicolas Test Pending Microbiology Date/Time Source Procedure Growth Status 05/07/20 16:00 Nasopharynx SARS-CoV-2 RdRp Gene Assay - Final Complete Trace Diaz MD May 10, 2020 08:35
[2020-05-10] MEDS ORDERED: Docusate 100mg cap ORAL SCH (09:00)
[2020-05-10] MEDS ORDERED: Potassium Phosphate 20 MM in NS 275 ML IV ONE (10:00)
--- NOTE | 2020-05-10 10:26 | Infectious Diseases Prog Note ---
Assessment/Plan Assessment: Septic Shock- off pressors now Pneumonia- COVID 19 neg x2 (on same day) Acute hypoxic resp failure- s/p intubation 05/02 -05/08 CXRL Increasing airspace opacities, worse in the right midlung. Increase in small right pleural effusion and probably small left pleural effusion. -05/05 Bcx NTD -05/04 CXR: Dense consolidation of the right mid and lower lung, right pleural effusion are unchanged. Left lung and pleural space remain clear. -05/02 Sp cx PsA (pham S), E. aerogenes (R Ancef; otherwise S), MRSA -05/02 CXR: There is a moderately consolidating infiltrate in the right lower lobe consistent with pneumonia. Bcx neg x4 rapid COVID neg, COVI PCR neg - previously neg: -02/26 SARS-COV2 pCR neg; 02/28 SARS-COV 2 pcr neg Probable UTI -u/a wbc 10-15, nit neg, leul +2 ; ucx <10k ESBL. P. mirabilis (S Zosyn, meropenem) FEver (up to 105.3); fever curve improved but ongoing fever leukocytosis; increased TOMAS; SP Recent Sepsis 2ry to ESBL K.pna bacteremia and Pneumonia 02/2020 -Bcx 3/ ESBL K.pna (S Levo, Meropenem, ZOsyn); 03/01 Bcx Neg -sp cx ESBL K.pna -02/27 sp removal PICC Line; cath tip cx Neg muscle weakness and atrophy (not characterized) psychiatric disorder dysphagia s/p GT [place] resident ( [facility]) Dementia seizure disorder Plan: -COntinue Meropenem # 9/ for UTI and PNA and IV Vancomycin #9/14 for MRSA PNA -05/05 SP Amikacin #4 -05/02 SP CEfepime x1 , Azithromycin x1 -f/u cx -Monitor CBC/CMP, temperatures -COVID19 neg x2; continue isolation until afebrile > 24 hrs -ICU/ETT/PEG care -repeat cultures Thank you for consulting [facility]. Will continue to follow along with you. Joy troncoso RN. Subjective Allergies: Coded Allergies: DIPHENHYDRAMINE (Verified Allergy, Unknown, 02/27/20) Tm 100.6; afebrile >12hrs wbc increased repeat Bcx NTD off pressors Fio2 40% Objective Last 24 Hour Vital Signs Date Time Temp Pulse Resp B/P (MAP) Pulse Ox O2 Delivery O2 Flow Rate FiO2 05/10/20 10:00 117 22 89/51 87 Mechanical Ventilator 40 05/10/20 09:41 122 133/62 05/10/20 09:30 123 22 105/56 87 Mechanical Ventilator 40 05/10/20 09:00 128 27 102/49 89 Mechanical Ventilator 40 05/10/20 08:56 99.8 05/10/20 08:30 137 30 141/61 91 Mechanical Ventilator 40 05/10/20 08:00 119 32 100/56 87 Mechanical Ventilator 40 05/10/20 08:00 141 30 125/81 91 Mechanical Ventilator 40 05/10/20 08:00 121 05/10/20 07:30 147 30 143/91 94 Mechanical Ventilator 40 05/10/20 07:00 30 124/79 Mechanical Ventilator 40 05/10/20 07:00 146 30 124/79 94 Mechanical Ventilator 40 05/10/20 06:30 138 19 05/10/20 06:15 129 27 119/74 97 Mechanical Ventilator 40 05/10/20 06:03 114 21 109/57 100 Mechanical Ventilator 40 05/10/20 06:00 24 109/57 Mechanical Ventilator 40 05/10/20 06:00 112 20 106/57 99 Mechanical Ventilator 40 05/10/20 05:30 111 17 102/45 98 Mechanical Ventilator 40 05/10/20 05:00 24 95/52 Mechanical Ventilator 40 05/10/20 05:00 98.9 121 21 114/60 95 Mechanical Ventilator 40 05/10/20 04:47 23 128/93 Mechanical Ventilator 40 05/10/20 04:30 131 27 128/113 96 Mechanical Ventilator 40 05/10/20 04:00 131 05/10/20 04:00 Endotracheal Tube 05/10/20 04:00 29 149/70 Mechanical Ventilator 40 05/10/20 04:00 137 29 149/70 97 Mechanical Ventilator 05/10/20 04:00 40 05/10/20 03:10 129 32 40 05/10/20 03:00 132 29 142/65 97 Mechanical Ventilator 40 05/10/20 03:00 29 142/65 Mechanical Ventilator 40 05/10/20 02:00 126 23 127/65 99 Mechanical Ventilator 40 05/10/20 02:00 23 127/65 Mechanical Ventilator 40 05/10/20 01:30 105 17 95/46 100 Mechanical Ventilator 40 05/10/20 01:00 112 20 95/46 98 Mechanical Ventilator 40 05/10/20 01:00 20 94/56 Mechanical Ventilator 40 05/10/20 00:30 98.6 118 24 107/56 97 Mechanical Ventilator 40 05/10/20 00:00 40 05/10/20 00:00 132 05/10/20 00:00 126 28 125/47 99 Mechanical Ventilator 40 05/10/20 00:00 16 117/56 Mechanical Ventilator 40 05/10/20 00:00 Endotracheal Tube 05/09/20 23:30 131 27 127/76 99 Mechanical Ventilator 40 05/09/20 23:27 127 26 40 05/09/20 23:00 131 29 141/66 96 Mechanical Ventilator 40 05/09/20 23:00 16 164/54 Mechanical Ventilator 40 05/09/20 22:30 137 30 153/67 98 Mechanical Ventilator 40 05/09/20 22:00 98.8 135 30 159/66 99 Mechanical Ventilator 40 05/09/20 22:00 30 159/60 Mechanical Ventilator 40 05/09/20 21:30 139 31 157/59 97 Mechanical Ventilator 40 05/09/20 21:00 139 31 148/54 98 Mechanical Ventilator 40 05/09/20 21:00 31 148/54 Mechanical Ventilator 40 05/09/20 20:30 141 31 141/70 99 Mechanical Ventilator 40 05/09/20 20:00 40 05/09/20 20:00 146 05/09/20 20:00 99.5 140 31 139/60 99 Mechanical Ventilator 40 05/09/20 20:00 31 139/60 Mechanical Ventilator 40 05/09/20 20:00 Endotracheal Tube 05/09/20 19:50 144 32 40 05/09/20 19:30 144 32 145/60 98 Mechanical Ventilator 40 05/09/20 19:12 31 156/60 Mechanical Ventilator 40 05/09/20 19:00 149 31 156/60 99 Mechanical Ventilator 40 05/09/20 19:00 26 156/60 Mechanical Ventilator 40 05/09/20 18:30 100.3 148 33 109/76 99 Mechanical Ventilator 40 05/09/20 18:00 31 143/72 Mechanical Ventilator 40 05/09/20 18:00 100.6 150 31 143/72 98 Mechanical Ventilator 40 05/09/20 17:30 100.6 150 27 146/56 97 Mechanical Ventilator 40 05/09/20 17:07 147 05/09/20 17:00 100.6 146 26 160/66 97 Mechanical Ventilator 40 05/09/20 17:00 26 146/56 Mechanical Ventilator 40 05/09/20 16:30 100.6 144 26 133/73 97 Mechanical Ventilator 40 05/09/20 16:00 98.6 120 21 100/42 100 Mechanical Ventilator 40 05/09/20 16:00 117 05/09/20 16:00 21 106/46 Mechanical Ventilator 40 05/09/20 16:00 40 05/09/20 16:00 Endotracheal Tube 05/09/20 15:29 131 24 40 05/09/20 15:00 98.6 136 25 137/58 98 Mechanical Ventilator 40 05/09/20 15:00 27 137/58 Mechanical Ventilator 40 05/09/20 14:30 98.6 140 26 128/101 96 Mechanical Ventilator 40 05/09/20 14:00 98.6 143 27 144/53 97 Mechanical Ventilator 40 05/09/20 14:00 27 133/73 Mechanical Ventilator 40 05/09/20 13:30 98.6 143 24 140/70 97 Mechanical Ventilator 40 05/09/20 13:00 98.3 143 22 144/62 97 Mechanical Ventilator 40 05/09/20 13:00 22 127/75 Mechanical Ventilator 40 05/09/20 12:30 98.9 142 23 138/61 98 Mechanical Ventilator 40 05/09/20 12:00 98.9 142 23 95/52 98 Mechanical Ventilator 40 05/09/20 12:00 40 05/09/20 12:00 142 05/09/20 12:00 25 137/83 Mechanical Ventilator 40 05/09/20 12:00 Endotracheal Tube 05/09/20 11:30 99.0 141 25 122/66 97 Mechanical Ventilator 40 05/09/20 11:00 100.6 139 25 137/65 97 Mechanical Ventilator 40 05/09/20 11:00 25 137/65 Mechanical Ventilator 40 05/09/20 10:55 137 29 40 05/09/20 10:30 100.7 138 26 118/50 97 Mechanical Ventilator 40 Height (Feet): 5 Height (Inches): 8.00 Weight (Pounds): 156 GENERAL: The patient is a thin-appearing male, in severe respiratory distress. HEENT: Eyes, pupils equal and responsive to light and accommodation. Extraocular movements are intact. NECK: Supple. No lymphadenopathy. CHEST: Mech Vent; Decreased breath sounds bilaterally without rales. CARDIOVASCULAR: Tachycardic, regular rhythm. S1 and S2 are normal without murmurs, rubs, or gallops. ABDOMEN: Soft, nontender, and nondistended. Positive bowel sounds. No evidence of hepatosplenomegaly. Currently, no rebound or guarding noted. EXTREMITIES: Negative for clubbing, cyanosis, or edema. Microbiology Date/Time Source Procedure Growth Status 05/07/20 16:00 Nasopharynx SARS-CoV-2 RdRp Gene Assay - Final Complete Laboratory Tests Test 05/10/20 04:00 05/10/20 08:00 White Blood Count 17.1 K/UL (4.8-10.8) H Red Blood Count 2.99 M/UL (4.70-6.10) L Hemoglobin 9.3 G/DL (14.2-18.0) L Hematocrit 28.7 % (42.0-52.0) L Mean Corpuscular Volume 96 FL (80-99) Mean Corpuscular Hemoglobin 31.1 PG (27.0-31.0) H Mean Corpuscular Hemoglobin Concent 32.4 G/DL (32.0-36.0) Red Cell Distribution Width 12.9 % (11.6-14.8) Platelet Count 123 K/UL (150-450) #L Mean Platelet Volume 7.1 FL (6.5-10.1) Neutrophils (%) (Auto) % (45.0-75.0) Lymphocytes (%) (Auto) % (20.0-45.0) Monocytes (%) (Auto) % (1.0-10.0) Eosinophils (%) (Auto) % (0.0-3.0) Basophils (%) (Auto) % (0.0-2.0) Differential Total Cells Counted 100 Neutrophils % (Manual) 88 % (45-75) H Lymphocytes % (Manual) 8 % (20-45) L Monocytes % (Manual) 3 % (1-10) Eosinophils % (Manual) 0 % (0-3) Basophils % (Manual) 0 % (0-2) Band Neutrophils 1 % (0-8) Platelet Estimate Decreased L Platelet Morphology Normal Hypochromasia 1+ Sodium Level 143 MMOL/L (136-145) Potassium Level 3.2 MMOL/L (3.5-5.1) L Chloride Level 107 MMOL/L (98-107) Carbon Dioxide Level 24 MMOL/L (21-32) Anion Gap 12 mmol/L (5-15) Blood Urea Nitrogen 9 mg/dL (7-18) Creatinine 0.9 MG/DL (0.55-1.30) Estimat Glomerular Filtration Rate > 60 mL/min (>60) Glucose Level 105 MG/DL (74-106) Calcium Level 8.5 MG/DL (8.5-10.1) Phosphorus Level 2.3 MG/DL (2.5-4.9) L Magnesium Level 1.5 MG/DL (1.8-2.4) L Iron Level 9 ug/dL (50-175) L Total Iron Binding Capacity 252 ug/dL (250-450) Percent Iron Saturation 4 % (15-50) L Unsaturated Iron Binding 243 ug/dL (112-346) Total Bilirubin 0.5 MG/DL (0.2-1.0) Aspartate Amino Transf (AST/SGOT) 22 U/L (15-37) Alanine Aminotransferase (ALT/SGPT) 35 U/L (12-78) Alkaline Phosphatase 56 U/L (46-116) Total Protein 5.5 G/DL (6.4-8.2) L Albumin 1.8 G/DL (3.4-5.0) L Globulin 3.7 g/dL Albumin/Globulin Ratio 0.5 (1.0-2.7) L Vitamin B12 Level > 2000 PG/ML (193-986) H Folate 15.6 NG/ML (8.6-58.9) Arterial Blood pH 7.330 (7.350-7.450) Arterial Blood Partial Pressure CO2 42.3 mmHg (35.0-45.0) Arterial Blood Partial Pressure O2 45.1 mmHg (75.0-100.0) Arterial Blood HCO3 21.8 mmol/L (22.0-26.0) L Arterial Blood Oxygen Saturation 79.9 % (95-100) *L Arterial Blood Base Excess -3.9 (-2-2) L Nicolas Test Positive Current Medications Medications (Trade) Dose Ordered Sig/Damion Route PRN Reason Start Time Stop Time Status Last Admin Dose Admin Acetaminophen (Tylenol) 650 mg Q4H PRN GT fever 05/02/20 12:45 06/01/20 12:44 05/10/20 08:26 Aspirin (ASA) 81 mg DAILY GT 05/05/20 09:00 06/19/20 08:59 05/10/20 08:29 Chlorhexidine Gluconate (Marci-Hex 2%) 1 applic DAILY@2000 TOPIC 05/03/20 20:00 08/01/20 19:59 05/09/20 20:13 Dextrose/Sodium Chloride 1,000 ml @ 50 mls/hr Q20H IV 05/08/20 10:30 06/07/20 10:29 05/10/20 02:28 Docusate Sodium (Colace) 100 mg TWICE A DAY ORAL 05/10/20 09:00 06/09/20 08:59 05/10/20 08:29 Fentanyl Citrate 250 ml @ 0 mls/hr Q24H IV 05/03/20 22:03 08/01/20 22:02 05/10/20 04:47 Furosemide (Lasix) 40 mg EVERY 12 HOURS IV 05/10/20 09:00 06/09/20 08:59 05/10/20 09:41 Heparin Sodium (Porcine) (Heparin 5000 units/ml) 5,000 units EVERY 12 HOURS SUBQ 05/02/20 21:00 06/16/20 20:59 05/09/20 20:48 Iron Sucrose 100 mg/Sodium Chloride 60 ml @ 240 mls/hr BEDTIME IV 05/10/20 21:00 05/14/20 21:14 Levetiracetam (Keppra) 700 mg Q12HR GT 05/02/20 21:00 06/01/20 20:59 05/10/20 08:23 Magnesium Sulfate 100 ml @ 100 mls/hr Q1H IVPB 05/10/20 08:00 05/10/20 11:59 05/10/20 09:41 Meropenem 1 gm/ Sodium Chloride 55 ml @ 110 mls/hr Q8HR IVPB 05/02/20 15:00 05/11/20 23:59 05/10/20 06:05 Metoclopramide HCl (Reglan) 10 mg Q6H IVP 05/08/20 10:00 06/07/20 09:59 05/10/20 09:42 Metoprolol Tartrate (Lopressor) 25 mg Q12HR ORAL 05/10/20 09:00 08/08/20 08:59 05/10/20 09:41 Midodrine (Pro-Amatine) 10 mg Q8HR GT 05/04/20 22:00 08/02/20 21:59 05/10/20 06:07 Norepinephrine Bitartrate 250 ml @ 0 mls/hr Q24H IV 05/02/20 12:48 07/31/20 12:47 05/09/20 10:12 Ondansetron HCl (Zofran) 4 mg Q6H PRN IVP Nausea & Vomiting 05/02/20 12:45 06/01/20 12:44 Pantoprazole (Protonix) 40 mg DAILY IVP 05/10/20 09:00 06/09/20 08:59 05/10/20 08:23 Polyethylene Glycol (Miralax) 17 gm DAILYPRN PRN GT Constipation 05/02/20 12:45 06/01/20 12:44 Potassium Phosphate 20 mm/ Sodium Chloride 281.6667 ml @ 46.944 m... ONCE ONCE IV 05/10/20 10:00 05/10/20 15:59 05/10/20 09:42 Vancomycin HCl (Vanco pharmacy to dose) 1 ea DAILY PRN MISC Per rx protocol 05/05/20 09:45 06/04/20 09:44 Vancomycin HCl 750 mg/Sodium Chloride 275 ml @ 183.333 mls/hr Q8H IVPB 05/07/20 00:00 05/12/20 00:00 05/10/20 08:28 Charlene Stokes M.D. May 10, 2020 10:26
[2020-05-10 11:12] LABS: APPEARANCE,URINE CLEAR; BILIRUBIN, URINE NEGATIVE (NEGATIVE); COLOR,URINE PALE YELLOW; GLUCOSE, URINE (UA) NEGATIVE (NEGATIVE); KETONES,URINE 2+ (NEGATIVE); LEUKOCYTE ESTERASE ,URINE NEGATIVE (NEGATIVE); NITRITE,URINE NEGATIVE (NEGATIVE); PH,URINE 5 (4.5-8.0); PROTEIN,URINE NEGATIVE (NEGATIVE); UROBILINOGEN,URINE NORMAL MG/DL (0.0-1.0)
--- NOTE | 2020-05-10 11:30 | Consultation ---
DATE OF CONSULTATION: 05/10/2020 CARDIOLOGY CONSULTATION CONSULTING PHYSICIAN: Trace Diaz MD. REFERRING PHYSICIAN: Marky Go MD. REASON FOR CONSULTATION: Tachycardia in a patient on the ventilator and respiratory failure. HISTORY OF PRESENT ILLNESS: The patient is a 59-year-old gentleman with history of dementia, respiratory failure, as well as history of recent septic shock when he was in outside facility, was admitted to the hospital for increasing shortness of breath. The patient was coughing uncontrollably and was having desaturation. The patient was subsequently intubated and brought to intensive care unit. The patient also has history of dementia and dysphagia, status post PEG placement. The patient was admitted and noted to be tachycardic with heart rate in the 150s. Cardiac electrophysiology consultation was requested for further evaluation and management. At the time of my evaluation, the patient is intubated in the intensive care unit and is unable to provide any information. REVIEW OF SYSTEMS: Cannot be obtained. PAST MEDICAL HISTORY: As mentioned above. FAMILY HISTORY: Noncontributory. SOCIAL HISTORY: senior living resident. Does not smoke or drink alcohol. PHYSICAL EXAMINATION: VITAL SIGNS: Show blood pressure of 124/79, pulse is 146, respirations 18, and temperature 98.9. HEAD AND NECK: Shows no JVD. He is orally intubated. LUNGS: Coarse rhonchi. CARDIOVASCULAR: Shows tachycardic S1 and S2 with no gallop. ABDOMEN: Status post G-tube. EXTREMITIES: 1+ pitting edema. LABORATORY AND DIAGNOSTIC DATA: His EKG shows sinus tachycardia, rate of [address]-T wave abnormalities. Labs show white count of 17.1, hemoglobin 9.2, hematocrit 28.7, and platelet count 123,000. Sodium is 142, potassium 3.2, BUN of 9, creatinine 0.9, and glucose of 105. His initial troponin was negative. ASSESSMENT AND PLAN: 1. Tachycardia due to sinus tachycardia with no evidence of atrial fibrillation or SVT. This is due to the patient's underlying sepsis and pneumonia. His echocardiogram showed ejection fraction of 55%. The patient received his second dose of digoxin as there was a question of atrial fibrillation. I will check a digoxin level and start him on low-dose beta-berhane since his blood pressure is currently stable sinus tachycardia. 2. Respiratory failure, currently on the ventilator, unlikely due to congestive heart failure. Echocardiogram showed normal left ventricular systolic function. I will get a brain natriuretic peptide. Again, his last BNP was 3987. I will put the patient on Lasix as well, as the patient is likely volume overloaded, especially that his creatinine is only 0.9. 3. Respiratory failure, on the ventilator. The patient is on broad-spectrum IV antibiotics. 4. Dysphagia, status post PEG placement. Further evaluation by Dr. Liu. 5. COPD, nosocomial pneumonia. 6. History of CVA. 7. History of seizure disorder. Thank you very much for allowing me to participate in the care of this patient. Please do not hesitate to contact me if you have any questions regarding my evaluation. Trace Diaz M.D. DR: AMILCAR JOB#: [id number] CC:
--- NOTE | 2020-05-10 11:32 | Diagnostic Imaging Report ---
EXAM: XRAY Abdomen 1v HISTORY: Reason For Exam: ABD PAIN COMPARISON: 03/02/2020. TECHNIQUE: Internal view of the abdomen obtained. FINDINGS: There is a nonspecific bowel gas pattern with relative paucity of bowel gas throughout the abdomen. A G-tube is again noted in the left upper quadrant. No mass or mass effect seen. No definite pathologic calcifications identified. There is no sign of free air. No acute abnormality noted of the visualized osseous structures. IMPRESSION: NONSPECIFIC BOWEL GAS PATTERN WITH RELATIVE PAUCITY OF BOWEL GAS. G-TUBE REMAINS IN PLACE.
[2020-05-10] MEDS: Norepinephrine 4mg/NS Premix 250 ML IV SCH (12:20)
--- NOTE | 2020-05-10 12:23 | Diagnostic Imaging Report ---
Procedure: XRAY Chest 1v Reason for study: Reason For Exam: [id number] Comparison films: 05/08/2020. FINDINGS: Endotracheal tube and right central venous catheter remain in place. There is no change of bilateral alveolar infiltrates right greater than left . Cardiomegaly and effusions unchanged. The bony thorax appear unremarkable. IMPRESSION: NO SIGNIFICANT CHANGE COMPARED TO PREVIOUS EXAM.
--- NOTE | 2020-05-10 12:24 | Pulmonolgy Critical Care Note ---
Critical Care - Asmt/Plan Problems: (1) Acute respiratory failure (2) Sepsis (3) Nosocomial pneumonia (4) Seizure disorder (5) Dehydration (6) COPD (chronic obstructive pulmonary disease) (7) custodial resident (8) History of CVA (cerebrovascular accident) Respiratory: monitor respiratory rate, adjust FIO2, CXR Cardiac: continue pressors, continue to monitor HR/BP Renal: F/U I&O, check electrolytes Infectious Disease: check cultures Endocrine: monitor blood sugar Hematologic: monitor H/H, transfuse if hgb<8.5 Neurologic: PRN Ativan, keep patient comfortable Affect: PRN ativan Prophylaxis: Protonix Time Spent (Minutes): 40 Notes Reviewed: cardio, 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, consultants, 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 - Objective Last 24 Hour Vital Signs Date Time Temp Pulse Resp B/P (MAP) Pulse Ox O2 Delivery O2 Flow Rate FiO2 05/10/20 12:20 84/44 05/10/20 12:00 40 05/10/20 12:00 Endotracheal Tube 05/10/20 12:00 12 80/52 Mechanical Ventilator 40 05/10/20 12:00 102 05/10/20 12:00 98.7 22 80/52 100 Mechanical Ventilator 40 05/10/20 11:38 96 20 40 05/10/20 11:00 22 84/52 Mechanical Ventilator 40 05/10/20 11:00 99 22 84/52 95 Mechanical Ventilator 40 05/10/20 10:30 108 20 99/57 91 Mechanical Ventilator 40 05/10/20 10:00 22 89/51 Mechanical Ventilator 40 05/10/20 10:00 117 22 89/51 87 Mechanical Ventilator 40 05/10/20 09:41 122 133/62 05/10/20 09:30 123 22 105/56 87 Mechanical Ventilator 40 05/10/20 09:00 128 27 102/49 89 Mechanical Ventilator 40 05/10/20 09:00 27 102/49 Mechanical Ventilator 40 05/10/20 08:56 99.8 05/10/20 08:30 137 30 141/61 91 Mechanical Ventilator 40 05/10/20 08:00 119 32 100/56 87 Mechanical Ventilator 40 05/10/20 08:00 141 30 125/81 91 Mechanical Ventilator 40 05/10/20 08:00 121 05/10/20 08:00 30 125/81 Mechanical Ventilator 40 05/10/20 08:00 Endotracheal Tube 05/10/20 08:00 40 05/10/20 07:30 147 30 143/91 94 Mechanical Ventilator 40 05/10/20 07:00 30 124/79 Mechanical Ventilator 40 05/10/20 07:00 146 30 124/79 94 Mechanical Ventilator 40 05/10/20 06:30 138 19 05/10/20 06:15 129 27 119/74 97 Mechanical Ventilator 40 05/10/20 06:03 114 21 109/57 100 Mechanical Ventilator 40 05/10/20 06:00 24 109/57 Mechanical Ventilator 40 05/10/20 06:00 112 20 106/57 99 Mechanical Ventilator 40 05/10/20 05:30 111 17 102/45 98 Mechanical Ventilator 40 05/10/20 05:00 24 95/52 Mechanical Ventilator 40 05/10/20 05:00 98.9 121 21 114/60 95 Mechanical Ventilator 40 05/10/20 04:47 23 128/93 Mechanical Ventilator 40 05/10/20 04:30 131 27 128/113 96 Mechanical Ventilator 40 05/10/20 04:00 131 05/10/20 04:00 Endotracheal Tube 05/10/20 04:00 29 149/70 Mechanical Ventilator 40 05/10/20 04:00 137 29 149/70 97 Mechanical Ventilator 05/10/20 04:00 40 05/10/20 03:10 129 32 40 05/10/20 03:00 132 29 142/65 97 Mechanical Ventilator 40 05/10/20 03:00 29 142/65 Mechanical Ventilator 40 05/10/20 02:00 126 23 127/65 99 Mechanical Ventilator 40 05/10/20 02:00 23 127/65 Mechanical Ventilator 40 05/10/20 01:30 105 17 95/46 100 Mechanical Ventilator 40 05/10/20 01:00 112 20 95/46 98 Mechanical Ventilator 40 05/10/20 01:00 20 94/56 Mechanical Ventilator 40 05/10/20 00:30 98.6 118 24 107/56 97 Mechanical Ventilator 40 05/10/20 00:00 40 05/10/20 00:00 132 05/10/20 00:00 126 28 125/47 99 Mechanical Ventilator 40 05/10/20 00:00 16 117/56 Mechanical Ventilator 40 05/10/20 00:00 Endotracheal Tube 05/09/20 23:30 131 27 127/76 99 Mechanical Ventilator 40 05/09/20 23:27 127 26 40 05/09/20 23:00 131 29 141/66 96 Mechanical Ventilator 40 05/09/20 23:00 16 164/54 Mechanical Ventilator 40 05/09/20 22:30 137 30 153/67 98 Mechanical Ventilator 40 05/09/20 22:00 98.8 135 30 159/66 99 Mechanical Ventilator 40 05/09/20 22:00 30 159/60 Mechanical Ventilator 40 05/09/20 21:30 139 31 157/59 97 Mechanical Ventilator 40 05/09/20 21:00 139 31 148/54 98 Mechanical Ventilator 40 05/09/20 21:00 31 148/54 Mechanical Ventilator 40 05/09/20 20:30 141 31 141/70 99 Mechanical Ventilator 40 05/09/20 20:00 40 05/09/20 20:00 146 05/09/20 20:00 99.5 140 31 139/60 99 Mechanical Ventilator 40 05/09/20 20:00 31 139/60 Mechanical Ventilator 40 05/09/20 20:00 Endotracheal Tube 05/09/20 19:50 144 32 40 05/09/20 19:30 144 32 145/60 98 Mechanical Ventilator 40 05/09/20 19:12 31 156/60 Mechanical Ventilator 40 05/09/20 19:00 149 31 156/60 99 Mechanical Ventilator 40 05/09/20 19:00 26 156/60 Mechanical Ventilator 40 05/09/20 18:30 100.3 148 33 109/76 99 Mechanical Ventilator 40 05/09/20 18:00 31 143/72 Mechanical Ventilator 40 05/09/20 18:00 100.6 150 31 143/72 98 Mechanical Ventilator 40 05/09/20 17:30 100.6 150 27 146/56 97 Mechanical Ventilator 40 05/09/20 17:07 147 05/09/20 17:00 100.6 146 26 160/66 97 Mechanical Ventilator 40 05/09/20 17:00 26 146/56 Mechanical Ventilator 40 05/09/20 16:30 100.6 144 26 133/73 97 Mechanical Ventilator 40 05/09/20 16:00 98.6 120 21 100/42 100 Mechanical Ventilator 40 05/09/20 16:00 117 05/09/20 16:00 21 106/46 Mechanical Ventilator 40 05/09/20 16:00 40 05/09/20 16:00 Endotracheal Tube 05/09/20 15:29 131 24 40 05/09/20 15:00 98.6 136 25 137/58 98 Mechanical Ventilator 40 05/09/20 15:00 27 137/58 Mechanical Ventilator 40 05/09/20 14:30 98.6 140 26 128/101 96 Mechanical Ventilator 40 05/09/20 14:00 98.6 143 27 144/53 97 Mechanical Ventilator 40 05/09/20 14:00 27 133/73 Mechanical Ventilator 40 05/09/20 13:30 98.6 143 24 140/70 97 Mechanical Ventilator 40 05/09/20 13:00 98.3 143 22 144/62 97 Mechanical Ventilator 40 05/09/20 13:00 22 127/75 Mechanical Ventilator 40 05/09/20 12:30 98.9 142 23 138/61 98 Mechanical Ventilator 40 Status: sedated Condition: critical HEENT: atraumatic Neck: full ROM Lungs: clear Heart: HR/BP stable Abdomen: soft, active bowel sounds Extremities: no C/C/E Micro: Microbiology Date/Time Source Procedure Growth Status 05/07/20 16:00 Nasopharynx SARS-CoV-2 RdRp Gene Assay - Final Complete Critical Care - Subjective ROS Limited/Unobtainable: Yes EKG Rhythm: Sinus Rhythm FI02: 40 Vent Support Breath Rate: 16 Vent Support Mode: AC Vent Tidal Volume: 600 Sputum Amount: Moderate PEEP: 0.0 PIP: 20 Tube Feeding Amount: 0 I&O: Intake and Output 05/09/20 05/10/20 19:00 07:00 Intake Total 1821.499 ml 1219.200 ml Output Total 1565 ml 2925 ml Balance 256.499 ml -1705.800 ml IV Total 1686.499 ml 1219.200 ml Tube Feeding 0 ml Other 135 ml Output Urine Total 1565 ml 2925 ml CXR: no change ET-Tube: 7.5 ET Position: 24 Labs: Laboratory Tests Test 05/10/20 04:00 05/10/20 08:00 05/10/20 10:45 White Blood Count 17.1 K/UL (4.8-10.8) H Red Blood Count 2.99 M/UL (4.70-6.10) L Hemoglobin 9.3 G/DL (14.2-18.0) L Hematocrit 28.7 % (42.0-52.0) L Mean Corpuscular Volume 96 FL (80-99) Mean Corpuscular Hemoglobin 31.1 PG (27.0-31.0) H Mean Corpuscular Hemoglobin Concent 32.4 G/DL (32.0-36.0) Red Cell Distribution Width 12.9 % (11.6-14.8) Platelet Count 123 K/UL (150-450) #L Mean Platelet Volume 7.1 FL (6.5-10.1) Neutrophils (%) (Auto) % (45.0-75.0) Lymphocytes (%) (Auto) % (20.0-45.0) Monocytes (%) (Auto) % (1.0-10.0) Eosinophils (%) (Auto) % (0.0-3.0) Basophils (%) (Auto) % (0.0-2.0) Differential Total Cells Counted 100 Neutrophils % (Manual) 88 % (45-75) H Lymphocytes % (Manual) 8 % (20-45) L Monocytes % (Manual) 3 % (1-10) Eosinophils % (Manual) 0 % (0-3) Basophils % (Manual) 0 % (0-2) Band Neutrophils 1 % (0-8) Platelet Estimate Decreased L Platelet Morphology Normal Hypochromasia 1+ Sodium Level 143 MMOL/L (136-145) Potassium Level 3.2 MMOL/L (3.5-5.1) L Chloride Level 107 MMOL/L (98-107) Carbon Dioxide Level 24 MMOL/L (21-32) Anion Gap 12 mmol/L (5-15) Blood Urea Nitrogen 9 mg/dL (7-18) Creatinine 0.9 MG/DL (0.55-1.30) Estimat Glomerular Filtration Rate > 60 mL/min (>60) Glucose Level 105 MG/DL (74-106) Calcium Level 8.5 MG/DL (8.5-10.1) Phosphorus Level 2.3 MG/DL (2.5-4.9) L Magnesium Level 1.5 MG/DL (1.8-2.4) L Iron Level 9 ug/dL (50-175) L Total Iron Binding Capacity 252 ug/dL (250-450) Percent Iron Saturation 4 % (15-50) L Unsaturated Iron Binding 243 ug/dL (112-346) Total Bilirubin 0.5 MG/DL (0.2-1.0) Aspartate Amino Transf (AST/SGOT) 22 U/L (15-37) Alanine Aminotransferase (ALT/SGPT) 35 U/L (12-78) Alkaline Phosphatase 56 U/L (46-116) Total Protein 5.5 G/DL (6.4-8.2) L Albumin 1.8 G/DL (3.4-5.0) L Globulin 3.7 g/dL Albumin/Globulin Ratio 0.5 (1.0-2.7) L Vitamin B12 Level > 2000 PG/ML (193-986) H Folate 15.6 NG/ML (8.6-58.9) Arterial Blood pH 7.320 (7.350-7.450) Arterial Blood Partial Pressure CO2 48.2 mmHg (35.0-45.0) H Arterial Blood Partial Pressure O2 81.4 mmHg (75.0-100.0) Arterial Blood HCO3 24.3 mmol/L (22.0-26.0) Arterial Blood Oxygen Saturation 94.8 % (95-100) L Arterial Blood Base Excess -1.9 (-2-2) Nicolas Test Positive Urine Color Pale yellow Urine Appearance Clear Urine pH 5 (4.5-8.0) Urine Specific [place] 1.010 (1.005-1.035) Urine Protein Negative (NEGATIVE) Urine Glucose (UA) Negative (NEGATIVE) Urine Ketones 2+ (NEGATIVE) H Urine Blood Negative (NEGATIVE) Urine Nitrite Negative (NEGATIVE) Urine Bilirubin Negative (NEGATIVE) Urine Urobilinogen Normal MG/DL (0.0-1.0) Urine Leukocyte Esterase Negative (NEGATIVE) Ana Maria Hansen MD May 10, 2020 12:24
--- NOTE | 2020-05-10 13:34 | Nephrology Progress Note ---
Assessment/Plan Problem List: (1) Electrolyte imbalance (2) Dehydration (3) Acute respiratory failure (4) Seizure disorder Assessment Severe electrolyte abnormalities Low magnesium, low phosphorus, low potassium, Other active conditions: (1) Acute respiratory failure (2) Sepsis (3) Nosocomial pneumonia (4) Seizure disorder (5) Dehydration (6) COPD (chronic obstructive pulmonary disease) (7) halfway resident (8) History of CVA (cerebrovascular accident) Plan May 10: Tachycardia improved. Renal parameters stable. Continue per consultants. May 09: Patient remains tachycardic. 2D echocardiogram done results pending. 1 dose of IV digoxin ordered. Discussed with ASAD Dixon. Remains stable from renal standpoint of view. May 08: Magnesium sulfate IV ordered for hypomagnesemia. Patient has metabolic acidosis. IV sodium bicarb given. Feeding on hold due to residual. IV Reglan ordered. IV fluid changed to D10 normal saline. 2D echocardiogram ordered for tachycardia. Chest x-ray suggests worsening pulmonary infiltrate. Discussed with ASAD Stevens Remains stable from renal standpoint of view Discussed with RN mag , phosphorus and potassium supplement as needed Monitor electrolytes Continue per consultants Subjective ROS Limited/Unobtainable: Yes Objective Objective Last 24 Hour Vital Signs Date Time Temp Pulse Resp B/P (MAP) Pulse Ox O2 Delivery O2 Flow Rate FiO2 05/10/20 13:00 98 17 78/45 98 Mechanical Ventilator 40 05/10/20 12:39 19 93/51 Mechanical Ventilator 40 05/10/20 12:30 98 16 96/56 96 Mechanical Ventilator 40 05/10/20 12:20 84/44 05/10/20 12:00 40 05/10/20 12:00 Endotracheal Tube 05/10/20 12:00 12 80/52 Mechanical Ventilator 40 05/10/20 12:00 102 05/10/20 12:00 98.7 22 80/52 100 Mechanical Ventilator 40 05/10/20 11:38 96 20 40 05/10/20 11:00 22 84/52 Mechanical Ventilator 40 05/10/20 11:00 99 22 84/52 95 Mechanical Ventilator 40 05/10/20 10:30 108 20 99/57 91 Mechanical Ventilator 40 05/10/20 10:00 22 89/51 Mechanical Ventilator 40 05/10/20 10:00 117 22 89/51 87 Mechanical Ventilator 40 05/10/20 09:41 122 133/62 05/10/20 09:30 123 22 105/56 87 Mechanical Ventilator 40 05/10/20 09:00 128 27 102/49 89 Mechanical Ventilator 40 05/10/20 09:00 27 102/49 Mechanical Ventilator 40 05/10/20 08:56 99.8 05/10/20 08:30 137 30 141/61 91 Mechanical Ventilator 40 05/10/20 08:00 119 32 100/56 87 Mechanical Ventilator 40 05/10/20 08:00 141 30 125/81 91 Mechanical Ventilator 40 05/10/20 08:00 121 05/10/20 08:00 30 125/81 Mechanical Ventilator 40 05/10/20 08:00 Endotracheal Tube 05/10/20 08:00 40 05/10/20 07:30 147 30 143/91 94 Mechanical Ventilator 40 05/10/20 07:00 30 124/79 Mechanical Ventilator 40 05/10/20 07:00 146 30 124/79 94 Mechanical Ventilator 40 05/10/20 06:30 138 19 05/10/20 06:15 129 27 119/74 97 Mechanical Ventilator 40 05/10/20 06:03 114 21 109/57 100 Mechanical Ventilator 40 05/10/20 06:00 24 109/57 Mechanical Ventilator 40 05/10/20 06:00 112 20 106/57 99 Mechanical Ventilator 40 05/10/20 05:30 111 17 102/45 98 Mechanical Ventilator 40 05/10/20 05:00 24 95/52 Mechanical Ventilator 40 05/10/20 05:00 98.9 121 21 114/60 95 Mechanical Ventilator 40 05/10/20 04:47 23 128/93 Mechanical Ventilator 40 05/10/20 04:30 131 27 128/113 96 Mechanical Ventilator 40 05/10/20 04:00 131 05/10/20 04:00 Endotracheal Tube 05/10/20 04:00 29 149/70 Mechanical Ventilator 40 05/10/20 04:00 137 29 149/70 97 Mechanical Ventilator 05/10/20 04:00 40 05/10/20 03:10 129 32 40 05/10/20 03:00 132 29 142/65 97 Mechanical Ventilator 40 05/10/20 03:00 29 142/65 Mechanical Ventilator 40 05/10/20 02:00 126 23 127/65 99 Mechanical Ventilator 40 05/10/20 02:00 23 127/65 Mechanical Ventilator 40 05/10/20 01:30 105 17 95/46 100 Mechanical Ventilator 40 05/10/20 01:00 112 20 95/46 98 Mechanical Ventilator 40 05/10/20 01:00 20 94/56 Mechanical Ventilator 40 05/10/20 00:30 98.6 118 24 107/56 97 Mechanical Ventilator 40 05/10/20 00:00 40 05/10/20 00:00 132 05/10/20 00:00 126 28 125/47 99 Mechanical Ventilator 40 05/10/20 00:00 16 117/56 Mechanical Ventilator 40 05/10/20 00:00 Endotracheal Tube 05/09/20 23:30 131 27 127/76 99 Mechanical Ventilator 40 05/09/20 23:27 127 26 40 05/09/20 23:00 131 29 141/66 96 Mechanical Ventilator 40 05/09/20 23:00 16 164/54 Mechanical Ventilator 40 05/09/20 22:30 137 30 153/67 98 Mechanical Ventilator 40 05/09/20 22:00 98.8 135 30 159/66 99 Mechanical Ventilator 40 05/09/20 22:00 30 159/60 Mechanical Ventilator 40 05/09/20 21:30 139 31 157/59 97 Mechanical Ventilator 40 05/09/20 21:00 139 31 148/54 98 Mechanical Ventilator 40 05/09/20 21:00 31 148/54 Mechanical Ventilator 40 05/09/20 20:30 141 31 141/70 99 Mechanical Ventilator 40 05/09/20 20:00 40 05/09/20 20:00 146 05/09/20 20:00 99.5 140 31 139/60 99 Mechanical Ventilator 40 05/09/20 20:00 31 139/60 Mechanical Ventilator 40 05/09/20 20:00 Endotracheal Tube 05/09/20 19:50 144 32 40 05/09/20 19:30 144 32 145/60 98 Mechanical Ventilator 40 05/09/20 19:12 31 156/60 Mechanical Ventilator 40 05/09/20 19:00 149 31 156/60 99 Mechanical Ventilator 40 05/09/20 19:00 26 156/60 Mechanical Ventilator 40 05/09/20 18:30 100.3 148 33 109/76 99 Mechanical Ventilator 40 05/09/20 18:00 31 143/72 Mechanical Ventilator 40 05/09/20 18:00 100.6 150 31 143/72 98 Mechanical Ventilator 40 05/09/20 17:30 100.6 150 27 146/56 97 Mechanical Ventilator 40 05/09/20 17:07 147 05/09/20 17:00 100.6 146 26 160/66 97 Mechanical Ventilator 40 05/09/20 17:00 26 146/56 Mechanical Ventilator 40 05/09/20 16:30 100.6 144 26 133/73 97 Mechanical Ventilator 40 05/09/20 16:00 98.6 120 21 100/42 100 Mechanical Ventilator 40 05/09/20 16:00 117 05/09/20 16:00 21 106/46 Mechanical Ventilator 40 05/09/20 16:00 40 05/09/20 16:00 Endotracheal Tube 05/09/20 15:29 131 24 40 05/09/20 15:00 98.6 136 25 137/58 98 Mechanical Ventilator 40 05/09/20 15:00 27 137/58 Mechanical Ventilator 40 05/09/20 14:30 98.6 140 26 128/101 96 Mechanical Ventilator 40 05/09/20 14:00 98.6 143 27 144/53 97 Mechanical Ventilator 40 05/09/20 14:00 27 133/73 Mechanical Ventilator 40 Intake and Output 05/09/20 05/10/20 19:00 07:00 Intake Total 1821.499 ml 1219.200 ml Output Total 1565 ml 2925 ml Balance 256.499 ml -1705.800 ml IV Total 1686.499 ml 1219.200 ml Tube Feeding 0 ml Other 135 ml Output Urine Total 1565 ml 2925 ml Laboratory Tests 05/10/20 04:00: White Blood Count 17.1H, Red Blood Count 2.99L, Hemoglobin 9.3L, Hematocrit 28.7L, Mean Corpuscular Volume 96, Mean Corpuscular Hemoglobin 31.1H, Mean Corpuscular Hemoglobin Concent 32.4, Red Cell Distribution Width 12.9, Platelet Count 123#L, Mean Platelet Volume 7.1, Neutrophils (%) (Auto) , Lymphocytes (%) (Auto) , Monocytes (%) (Auto) , Eosinophils (%) (Auto) , Basophils (%) (Auto) , Differential Total Cells Counted 100, Neutrophils % (Manual) 88H, Lymphocytes % (Manual) 8L, Monocytes % (Manual) 3, Eosinophils % (Manual) 0, Basophils % ( Manual) 0, Band Neutrophils 1, Platelet Estimate DecreasedL, Platelet Morphology Normal, Hypochromasia 1+, Sodium Level 143, Potassium Level 3.2L, Chloride Level 107, Carbon Dioxide Level 24, Anion Gap 12, Blood Urea Nitrogen 9 , Creatinine 0.9, Estimat Glomerular Filtration Rate > 60, Glucose Level 105, Calcium Level 8.5, Phosphorus Level 2.3L, Magnesium Level 1.5L, Iron Level 9L, Total Iron Binding Capacity 252, Percent Iron Saturation 4L, Unsaturated Iron Binding 243, Total Bilirubin 0.5, Aspartate Amino Transf (AST/SGOT) 22, Alanine Aminotransferase (ALT/SGPT) 35, Alkaline Phosphatase 56, Total Protein 5.5L, Albumin 1.8L, Globulin 3.7, Albumin/Globulin Ratio 0.5L, Vitamin B12 Level > 2000H, Folate 15.6 05/10/20 08:00: Arterial Blood pH 7.320L, Arterial Blood Partial Pressure CO2 48.2H, Arterial Blood Partial Pressure O2 81.4, Arterial Blood HCO3 24.3, Arterial Blood Oxygen Saturation 94.8L, Arterial Blood Base Excess -1.9, Nicolas Test Positive 05/10/20 10:45: Urine Color Pale yellow, Urine Appearance Clear, Urine pH 5, Urine Specific [place] 1.010, Urine Protein Negative, Urine Glucose (UA) Negative, Urine Ketones 2+H, Urine Blood Negative, Urine Nitrite Negative, Urine Bilirubin Negative, Urine Urobilinogen Normal, Urine Leukocyte Esterase Negative Height (Feet): 5 Height (Inches): 8.00 Weight (Pounds): 156 General Appearance: no apparent distress EENT: other - On ventilator Cardiovascular: tachycardia Respiratory/Chest: decreased breath sounds Abdomen: distended Kin Bustillo MD May 10, 2020 13:34
--- NOTE | 2020-05-10 19:20 | Internal Med Progress Note ---
Subjective Date of Service: May 10, 2020 Physician Name Obey Cisneros Attending Physician Marky Go MD Current Medications Medications (Trade) Dose Ordered Sig/Damion Route PRN Reason Start Time Stop Time Status Last Admin Dose Admin Acetaminophen (Tylenol) 650 mg Q4H PRN GT fever 05/02/20 12:45 06/01/20 12:44 05/10/20 08:26 Aspirin (ASA) 81 mg DAILY GT 05/05/20 09:00 06/19/20 08:59 05/10/20 08:29 Chlorhexidine Gluconate (Marci-Hex 2%) 1 applic DAILY@2000 TOPIC 05/03/20 20:00 08/01/20 19:59 05/09/20 20:13 Dextrose/Sodium Chloride 1,000 ml @ 50 mls/hr Q20H IV 05/08/20 10:30 06/07/20 10:29 05/10/20 02:28 Docusate Sodium (Colace) 100 mg EVERY 12 HOURS GT 05/10/20 21:00 06/09/20 20:59 Fentanyl Citrate 250 ml @ 0 mls/hr Q24H IV 05/03/20 22:03 08/01/20 22:02 05/10/20 19:18 Furosemide (Lasix) 40 mg EVERY 12 HOURS IV 05/10/20 09:00 06/09/20 08:59 05/10/20 09:41 Heparin Sodium (Porcine) (Heparin 5000 units/ml) 5,000 units EVERY 12 HOURS SUBQ 05/02/20 21:00 06/16/20 20:59 05/09/20 20:48 Iron Sucrose 100 mg/Sodium Chloride 60 ml @ 240 mls/hr BEDTIME IV 05/10/20 21:00 05/14/20 21:14 Levetiracetam (Keppra) 700 mg Q12HR GT 05/02/20 21:00 06/01/20 20:59 05/10/20 08:23 Lorazepam (Ativan 2mg/ml 1ml) 2 mg Q4H PRN IV For Anxiety/seizures 05/10/20 12:45 05/17/20 12:44 Meropenem 1 gm/ Sodium Chloride 55 ml @ 110 mls/hr Q8HR IVPB 05/02/20 15:00 05/11/20 23:59 05/10/20 13:24 Metoclopramide HCl (Reglan) 10 mg Q6H IVP 05/08/20 10:00 06/07/20 09:59 05/10/20 16:07 Metoprolol Tartrate (Lopressor) 25 mg Q12HR GT 05/10/20 21:00 08/08/20 08:59 Midodrine (Pro-Amatine) 10 mg Q8HR GT 05/04/20 22:00 08/02/20 21:59 05/10/20 13:24 Norepinephrine Bitartrate 250 ml @ 0 mls/hr Q24H IV 05/02/20 12:48 07/31/20 12:47 05/10/20 12:20 Ondansetron HCl (Zofran) 4 mg Q6H PRN IVP Nausea & Vomiting 05/02/20 12:45 06/01/20 12:44 Pantoprazole (Protonix) 40 mg DAILY IVP 05/10/20 09:00 06/09/20 08:59 05/10/20 08:23 Polyethylene Glycol (Miralax) 17 gm DAILYPRN PRN GT Constipation 05/02/20 12:45 06/01/20 12:44 Vancomycin HCl (Vanco pharmacy to dose) 1 ea DAILY PRN MISC Per rx protocol 05/05/20 09:45 06/04/20 09:44 Vancomycin HCl 1 gm/Dextrose 275 ml @ 183.708 mls/hr Q12HR@1000,2200 IVPB 05/10/20 22:00 05/15/20 21:59 Allergies: Coded Allergies: DIPHENHYDRAMINE (Verified Allergy, Unknown, 02/27/20) ROS Limited/Unobtainable: Yes Subjective 59 YO M admitted with respiratory failure. Now pneumonia. Intubated and sedated. Cover for Daija Go. ICU Objective Last Vital Signs Date Time Temp Pulse Resp B/P (MAP) Pulse Ox O2 Delivery O2 Flow Rate FiO2 05/10/20 19:18 24 106/58 Mechanical Ventilator 40 05/10/20 19:17 122 05/10/20 19:00 94 05/10/20 17:00 97.3 05/06/20 10:19 15.0 Laboratory Tests Test 05/10/20 04:00 05/10/20 08:00 05/10/20 10:45 05/10/20 15:30 White Blood Count 17.1 K/UL (4.8-10.8) H Red Blood Count 2.99 M/UL (4.70-6.10) L Hemoglobin 9.3 G/DL (14.2-18.0) L Hematocrit 28.7 % (42.0-52.0) L Mean Corpuscular Volume 96 FL (80-99) Mean Corpuscular Hemoglobin 31.1 PG (27.0-31.0) H Mean Corpuscular Hemoglobin Concent 32.4 G/DL (32.0-36.0) Red Cell Distribution Width 12.9 % (11.6-14.8) Platelet Count 123 K/UL (150-450) #L Mean Platelet Volume 7.1 FL (6.5-10.1) Neutrophils (%) (Auto) % (45.0-75.0) Lymphocytes (%) (Auto) % (20.0-45.0) Monocytes (%) (Auto) % (1.0-10.0) Eosinophils (%) (Auto) % (0.0-3.0) Basophils (%) (Auto) % (0.0-2.0) Differential Total Cells Counted 100 Neutrophils % (Manual) 88 % (45-75) H Lymphocytes % (Manual) 8 % (20-45) L Monocytes % (Manual) 3 % (1-10) Eosinophils % (Manual) 0 % (0-3) Basophils % (Manual) 0 % (0-2) Band Neutrophils 1 % (0-8) Platelet Estimate Decreased L Platelet Morphology Normal Hypochromasia 1+ Sodium Level 143 MMOL/L (136-145) Potassium Level 3.2 MMOL/L (3.5-5.1) L Chloride Level 107 MMOL/L (98-107) Carbon Dioxide Level 24 MMOL/L (21-32) Anion Gap 12 mmol/L (5-15) Blood Urea Nitrogen 9 mg/dL (7-18) Creatinine 0.9 MG/DL (0.55-1.30) Estimat Glomerular Filtration Rate > 60 mL/min (>60) Glucose Level 105 MG/DL (74-106) Calcium Level 8.5 MG/DL (8.5-10.1) Phosphorus Level 2.3 MG/DL (2.5-4.9) L Magnesium Level 1.5 MG/DL (1.8-2.4) L Iron Level 9 ug/dL (50-175) L Total Iron Binding Capacity 252 ug/dL (250-450) Percent Iron Saturation 4 % (15-50) L Unsaturated Iron Binding 243 ug/dL (112-346) Total Bilirubin 0.5 MG/DL (0.2-1.0) Aspartate Amino Transf (AST/SGOT) 22 U/L (15-37) Alanine Aminotransferase (ALT/SGPT) 35 U/L (12-78) Alkaline Phosphatase 56 U/L (46-116) Total Protein 5.5 G/DL (6.4-8.2) L Albumin 1.8 G/DL (3.4-5.0) L Globulin 3.7 g/dL Albumin/Globulin Ratio 0.5 (1.0-2.7) L Vitamin B12 Level > 2000 PG/ML (193-986) H Folate 15.6 NG/ML (8.6-58.9) Arterial Blood pH 7.320 (7.350-7.450) Arterial Blood Partial Pressure CO2 48.2 mmHg (35.0-45.0) H Arterial Blood Partial Pressure O2 81.4 mmHg (75.0-100.0) Arterial Blood HCO3 24.3 mmol/L (22.0-26.0) Arterial Blood Oxygen Saturation 94.8 % (95-100) L Arterial Blood Base Excess -1.9 (-2-2) Nicolas Test Positive Urine Color Pale yellow Urine Appearance Clear Urine pH 5 (4.5-8.0) Urine Specific [place] 1.010 (1.005-1.035) Urine Protein Negative (NEGATIVE) Urine Glucose (UA) Negative (NEGATIVE) Urine Ketones 2+ (NEGATIVE) H Urine Blood Negative (NEGATIVE) Urine Nitrite Negative (NEGATIVE) Urine Bilirubin Negative (NEGATIVE) Urine Urobilinogen Normal MG/DL (0.0-1.0) Urine Leukocyte Esterase Negative (NEGATIVE) Vancomycin Level Trough 21.7 ug/mL (5.0-12.0) H Intake and Output 05/09/20 05/10/20 19:00 07:00 Intake Total 1821.499 ml 1219.200 ml Output Total 1565 ml 2925 ml Balance 256.499 ml -1705.800 ml IV Total 1686.499 ml 1219.200 ml Tube Feeding 0 ml Other 135 ml Output Urine Total 1565 ml 2925 ml Objective PHYSICAL EXAMINATION: GENERAL: The patient is a thin-appearing male, in severe respiratory distress. HEENT: Eyes, pupils equal and responsive to light and accommodation. Extraocular movements are intact. NECK: Supple. No lymphadenopathy. CHEST: Mech Vent; Decreased breath sounds bilaterally without rales. CARDIOVASCULAR: Tachycardic, regular rhythm. S1 and S2 are normal without murmurs, rubs, or gallops. ABDOMEN: Soft, nontender, and nondistended. Positive bowel sounds. No evidence of hepatosplenomegaly. Currently, no rebound or guarding noted. EXTREMITIES: Negative for clubbing, cyanosis, or edema. RECTAL/GENITAL: Not performed. NEUROLOGICAL: Unable to assess Assessment/Plan Assessment/Plan ASSESSMENT: This is a 59-year-old male. 1. Shortness of breath. 2. Hypoxia. 3. Right lower lobe pneumonia=enterobacter, pseudamonas, and staph aureus 4. Acute respiratory failure. 5. History of cerebrovascular accident. 6. Seizure disorder. 7. Functional quadriplegia. 8. Schizophrenia. 9. Dysphagia. 10. Urinary tract infection=proteus mirabilis 11. Sinus Tachycardia 12.Inceased tube feed residuals TREATMENT: 1. Respiratory failure/pneumonia. Intubated; A pulmonary consultation has been obtained with Dr. Ana Maria Hansen. The patient was febrile on admission. Antibiotics= vancomycin and meropenem. We will follow recommendations of Pulmonary. 2. Seizure disorder. Continue Keppra, Depakote as above. 3. Functional quadriplegia. 4. Schizophrenia. Continue Risperdal as above. 5. Dysphagia. The patient is status post PEG. 6. Cardiology=Dr Diaz 7. GI=Obey Stahl MD May 10, 2020 19:20
[2020-05-10] MEDS: Docusate 100mg/10ml Liq GT SCH (20:52)
[2020-05-10] MEDS: Dyna-Hex 2% Top Sol 2oz TOPIC SCH (20:53)
[2020-05-10] MEDS: Iron Sucrose 100 MG in NS 55 ML IV SCH (20:54)
[2020-05-10] MEDS: Vancomycin 1gm/D5W 275ml IVPB SCH ×2 (22:05)
[2020-05-11] VITALS (56 sets, daily range): BP systolic 78–155; BP diastolic 39–99
[2020-05-11] MEDS: fentaNYL 2500mcg/NS 250ml 250 ML IV SCH ×4 (01:17→20:50)
[2020-05-11 04:40] LABS: HEMOGLOBIN 9.4 G/DL (14.2-18.0); MEAN CORPUSCULAR VOLUME 96 FL (80-99); PLATELET COUNT 387 K/UL (150-450); RED BLOOD COUNT 3.03 M/UL (4.70-6.10); RED CELL DISTRIBUTION WIDTH 12.5 % (11.6-14.8)
[2020-05-11] MEDS: Metoclopramide 10mg/2ml Inj IVP SCH ×4 (04:50→21:19)
[2020-05-11 04:56] LABS: WHITE BLOOD COUNT 24.8 K/UL (4.8-10.8)
[2020-05-11 04:59] LABS: PHOSPHORUS 3.1 MG/DL (2.5-4.9)
[2020-05-11 05:05] LABS: ALANINE AMINOTRANSFERASE 26 U/L (12-78); ALBUMIN 1.6 G/DL (3.4-5.0); ALBUMIN/GLOBULIN RATIO 0.4 (1.0-2.7); ALKALINE PHOSPHATASE 62 U/L (46-116); ANION GAP 7 mmol/L (5-15); ASPARTATE AMINO TRANSFERASE 19 U/L (15-37); BILIRUBIN,TOTAL 0.5 MG/DL (0.2-1.0); BLOOD UREA NITROGEN 11 mg/dL (7-18); CALCIUM 8.2 MG/DL (8.5-10.1); CARBON DIOXIDE 31 MMOL/L (21-32); CHLORIDE 104 MMOL/L (98-107); CREATININE 0.9 MG/DL (0.55-1.30); POTASSIUM 2.9 MMOL/L (3.5-5.1); SODIUM 142 MMOL/L (136-145)
[2020-05-11] MEDS: Meropenem 1 GM in NS 55 ML IVPB SCH ×3 (05:11→22:04)
[2020-05-11] MEDS: Midodrine 10mg tab GT SCH ×3 (05:11→21:19)
--- NOTE | 2020-05-11 07:31 | Pulmonolgy Critical Care Note ---
Critical Care - Asmt/Plan Assessment/Plan: ASSESSMENT Acute hypoxemic respiratory failure requiring intubation Sepsis with septic shock Pneumonia Suspected COVID-19 -ruled out Dehydration Probably UTI COPD TOMAS- resolved Seizure disorder History of CVA Functional quadriplegia Dysphagia , feeding by G-tube PLAN OF CARE ICU off pressors, now on midodrine vent support, pulmonary toilet sedation, decreased to 200 mcg/hr ABG noted, will increase rate to 18 fup with ABG and CXR not ready for weaning DVT prophylaxis abx as per ID COVID x2- negative aspiration precaution GTF; KUB noted -> G-tube in place avoid nephrotoxic gentle hydration IV iron monitor H&H with goal to keep Hgb > 7 seizure precautions, continue Keppra case discussed and evaluated by supervising physician Critical Care - Objective Last 24 Hour Vital Signs Date Time Temp Pulse Resp B/P (MAP) Pulse Ox O2 Delivery O2 Flow Rate FiO2 05/11/20 06:45 102 21 100 Mechanical Ventilator 40 05/11/20 06:30 107 26 96/58 100 Mechanical Ventilator 40 05/11/20 06:30 105 26 05/11/20 06:15 104 27 100 Mechanical Ventilator 40 05/11/20 06:00 109 27 111/76 100 Mechanical Ventilator 40 05/11/20 06:00 30 111/76 Mechanical Ventilator 40 05/11/20 05:45 112 30 100 Mechanical Ventilator 40 05/11/20 05:30 109 28 102/65 100 40 05/11/20 05:00 102 28 94/62 100 Mechanical Ventilator 40 05/11/20 05:00 28 94/62 Mechanical Ventilator 40 05/11/20 04:30 102 27 107/63 100 Mechanical Ventilator 40 05/11/20 04:00 40 05/11/20 04:00 26 110/68 Mechanical Ventilator 40 05/11/20 04:00 98.0 105 26 110/68 100 Mechanical Ventilator 40 05/11/20 04:00 Endotracheal Tube 05/11/20 04:00 111 05/11/20 03:30 110 26 121/62 100 Mechanical Ventilator 40 05/11/20 03:20 108 26 100 05/11/20 03:15 105 23 100 Mechanical Ventilator 40 05/11/20 03:00 26 108/72 Mechanical Ventilator 40 05/11/20 03:00 109 26 108/72 100 Mechanical Ventilator 40 05/11/20 02:45 114 25 100 Mechanical Ventilator 40 05/11/20 02:30 115 25 118/99 100 Mechanical Ventilator 40 05/11/20 02:15 115 26 100 Mechanical Ventilator 40 05/11/20 02:00 113 24 133/65 100 Mechanical Ventilator 40 05/11/20 02:00 25 133/65 Mechanical Ventilator 40 05/11/20 01:30 98 19 97/56 100 Mechanical Ventilator 40 05/11/20 01:17 22 98/78 Mechanical Ventilator 15.0 100 05/11/20 01:16 25 98/78 Mechanical Ventilator 40 05/11/20 01:00 25 98/59 Mechanical Ventilator 40 05/11/20 01:00 95 21 98/78 100 Mechanical Ventilator 40 05/11/20 00:30 98 21 96/59 100 Mechanical Ventilator 40 05/11/20 00:00 111 05/11/20 00:00 98.9 103 20 98/57 100 Mechanical Ventilator 40 05/11/20 00:00 40 05/11/20 00:00 21 96/59 Mechanical Ventilator 40 05/11/20 00:00 Endotracheal Tube 05/10/20 23:30 112 22 112/69 100 Mechanical Ventilator 40 05/10/20 23:29 115 25 100 05/10/20 23:00 121 25 124/65 100 Mechanical Ventilator 40 05/10/20 23:00 21 112/69 Mechanical Ventilator 40 05/10/20 22:30 124 24 125/59 100 Mechanical Ventilator 40 05/10/20 22:00 26 125/59 Mechanical Ventilator 40 05/10/20 22:00 121 22 118/58 92 Mechanical Ventilator 40 05/10/20 21:30 121 24 115/56 91 Mechanical Ventilator 40 05/10/20 21:00 122 27 110/61 90 Mechanical Ventilator 40 05/10/20 21:00 25 115/56 Mechanical Ventilator 40 05/10/20 20:53 122 111/58 05/10/20 20:30 123 24 111/56 89 Mechanical Ventilator 40 05/10/20 20:00 98.9 123 26 108/56 92 Mechanical Ventilator 40 05/10/20 20:00 122 05/10/20 20:00 Endotracheal Tube 05/10/20 20:00 25 111/56 Mechanical Ventilator 40 05/10/20 20:00 40 05/10/20 19:30 121 24 114/55 93 Mechanical Ventilator 40 05/10/20 19:18 24 106/58 Mechanical Ventilator 40 05/10/20 19:17 122 29 40 05/10/20 19:00 18 106/58 Mechanical Ventilator 40 05/10/20 19:00 119 27 106/58 94 Mechanical Ventilator 40 05/10/20 18:33 115 16 107/54 99 Mechanical Ventilator 40 05/10/20 18:00 117 20 112/65 89 Mechanical Ventilator 40 05/10/20 18:00 19 112/81 Mechanical Ventilator 40 05/10/20 17:36 40 05/10/20 17:31 113 20 112/81 89 Mechanical Ventilator 40 05/10/20 17:00 20 114/65 Mechanical Ventilator 40 05/10/20 17:00 97.3 116 18 125/73 90 Mechanical Ventilator 40 05/10/20 16:30 118 20 114/65 88 Mechanical Ventilator 40 05/10/20 16:00 114 05/10/20 16:00 18 125/76 Mechanical Ventilator 40 05/10/20 16:00 116 18 125/76 93 Mechanical Ventilator 40 05/10/20 16:00 Endotracheal Tube 05/10/20 15:30 110 23 40 05/10/20 15:30 108 16 122/62 92 Mechanical Ventilator 40 05/10/20 15:00 18 122/63 Mechanical Ventilator 40 05/10/20 15:00 105 18 105/60 88 Mechanical Ventilator 40 05/10/20 14:30 96 17 95/50 96 Mechanical Ventilator 40 05/10/20 14:00 17 95/50 Mechanical Ventilator 40 05/10/20 14:00 95 17 99/60 96 Mechanical Ventilator 40 05/10/20 13:30 95 18 99/64 95 Mechanical Ventilator 40 05/10/20 13:00 98 17 78/45 98 Mechanical Ventilator 40 05/10/20 13:00 17 99/64 Mechanical Ventilator 40 05/10/20 12:39 19 93/51 Mechanical Ventilator 40 05/10/20 12:30 98 16 96/56 96 Mechanical Ventilator 40 05/10/20 12:20 84/44 05/10/20 12:00 40 05/10/20 12:00 Endotracheal Tube 05/10/20 12:00 12 80/52 Mechanical Ventilator 40 05/10/20 12:00 102 05/10/20 12:00 98.7 22 80/52 100 Mechanical Ventilator 40 05/10/20 11:38 96 20 40 05/10/20 11:00 22 84/52 Mechanical Ventilator 40 05/10/20 11:00 99 22 84/52 95 Mechanical Ventilator 40 05/10/20 10:30 108 20 99/57 91 Mechanical Ventilator 40 05/10/20 10:00 22 89/51 Mechanical Ventilator 40 05/10/20 10:00 117 22 89/51 87 Mechanical Ventilator 40 05/10/20 09:41 122 133/62 05/10/20 09:30 123 22 105/56 87 Mechanical Ventilator 40 05/10/20 09:00 128 27 102/49 89 Mechanical Ventilator 40 05/10/20 09:00 27 102/49 Mechanical Ventilator 40 05/10/20 08:56 99.8 05/10/20 08:30 137 30 141/61 91 Mechanical Ventilator 40 05/10/20 08:00 119 32 100/56 87 Mechanical Ventilator 40 05/10/20 08:00 141 30 125/81 91 Mechanical Ventilator 40 05/10/20 08:00 121 05/10/20 08:00 30 125/81 Mechanical Ventilator 40 05/10/20 08:00 Endotracheal Tube 05/10/20 08:00 40 05/10/20 07:30 147 30 143/91 94 Mechanical Ventilator 40 Status: sedated Condition: critical, other - Vent AC 600-16-40% HEENT: atraumatic, other - OP with ET in place intact Lungs: rhonchi - scattered Heart: other - tachycardic Abdomen: soft, non-tender Extremities: no C/C/E Critical Care - Subjective ROS Limited/Unobtainable: Yes Intubation Day: Interval Events: remains intubated no fevers this am leuk with trend uo last night desaturated placed on FiO2 100% Fentanyl down to 300 mcg/hr this am on 80% FiO2 ABG noted Condition: critical EKG Rhythm: Sinus Tachycardia - 110-124 FI02: 80 Vent Support Breath Rate: 16 Vent Support Mode: AC Vent Tidal Volume: 600 Sputum Amount: Moderate PEEP: 0.0 PIP: 12 Fluids: D5NS at 50 Drips: Fentanyl 200 mcg/hr Tube Feeding Amount: 0 I&O: Intake and Output 05/10/20 05/11/20 19:00 07:00 Intake Total 2054.689 ml 1828.000 ml Output Total 2830 ml 2970 ml Balance -775.311 ml -1142.000 ml Intake Free Water 90 ml IV Total 1964.689 ml 1708.000 ml Other 120 ml Output Urine Total 2830 ml 2970 ml CXR: CXR 05/10 Endotracheal tube and right central venous catheter remain in place. There is no change of bilateral alveolar infiltrates right greater than left . Cardiomegaly and effusions unchanged. The bony thorax appear unremarkable. ET-Tube: 7.5 ET Position: 24 Erika Kaufman [employer] May 11, 2020 07:31
[2020-05-11] MEDS: Docusate 100mg/10ml Liq GT SCH ×2 (08:29→20:50)
[2020-05-11] MEDS: Pantoprazole Inj IVP SCH (08:29)
[2020-05-11] MEDS: levETIRAcetam 500mg/5ml Liquid GT SCH ×2 (08:29→20:50)
[2020-05-11] MEDS: Aspirin Baby 81mg GT SCH (08:29)
[2020-05-11] MEDS: Heparin 5000 units/ml inj SUBQ SCH ×2 (08:33→21:20)
[2020-05-11] MEDS: Vancomycin 1gm/D5W 275ml IVPB SCH ×4 (10:26→22:05)
--- NOTE | 2020-05-11 10:29 | Infectious Diseases Prog Note ---
Assessment/Plan Assessment: Septic Shock- off pressors now Pneumonia- COVID 19 neg x3(2 on same day) Acute hypoxic resp failure- s/p intubation 05/02 -05/08 CXRL Increasing airspace opacities, worse in the right midlung. Increase in small right pleural effusion and probably small left pleural effusion. -05/07 Rapid COVID PCR neg -05/05 Bcx NTD -05/04 CXR: Dense consolidation of the right mid and lower lung, right pleural effusion are unchanged. Left lung and pleural space remain clear. -05/02 Sp cx PsA (pham S), E. aerogenes (R Ancef; otherwise S), MRSA -05/02 CXR: There is a moderately consolidating infiltrate in the right lower lobe consistent with pneumonia. Bcx neg x4 rapid COVID neg, COVI PCR neg - previously neg: -02/26 SARS-COV2 pCR neg; 02/28 SARS-COV 2 pcr neg Probable UTI -u/a wbc 10-15, nit neg, leul +2 ; ucx <10k ESBL. P. mirabilis (S Zosyn, meropenem) FEver (up to 105.3); improving (on cooling blanket) leukocytosis; increasing -05/10 u/a neg Bcx p sp cxp TOMAS; SP Recent Sepsis 2ry to ESBL K.pna bacteremia and Pneumonia 02/2020 -Bcx 3/4 ESBL K.pna (S Levo, Meropenem, ZOsyn); 03/01 Bcx Neg -sp cx ESBL K.pna -02/27 sp removal PICC Line; cath tip cx Neg muscle weakness and atrophy (not characterized) psychiatric disorder dysphagia s/p [facility] [place] resident ( [facility] - [place]) Dementia seizure disorder Plan: -COntinue Meropenem #10/14 for UTI and PNA and IV Vancomycin #10/ for MRSA PNA -add empiric Micafungin given rise in wbc -05/05 SP Amikacin #4 -05/02 SP CEfepime x1 , Azithromycin x1 -f/u cx -Monitor CBC/CMP, temperatures -COVID19 neg x2; continue isolation until afebrile > 24 hrs -ICU/ETT/PEG care -f/u repeat cultures Thank you for consulting [facility]. Will continue to follow along with you. Discussed wit RN. Subjective Allergies: Coded Allergies: DIPHENHYDRAMINE (Verified Allergy, Unknown, 02/27/20) afebrile >36hrs off pressors repeat cx pending FIo2 increased to 100% due to desaturatio,now down to 80% wbc increased no diarrhea Objective Last 24 Hour Vital Signs Date Time Temp Pulse Resp B/P (MAP) Pulse Ox O2 Delivery O2 Flow Rate FiO2 05/11/20 10:00 112 25 104/64 100 Mechanical Ventilator 80 05/11/20 09:32 30 113/97 Mechanical Ventilator 15.0 80 05/11/20 09:30 98.5 122 30 117/89 100 Mechanical Ventilator 80 05/11/20 09:27 125 30 80 05/11/20 09:00 130 27 113/97 99 Mechanical Ventilator 80 05/11/20 08:30 124 124/62 05/11/20 08:30 123 27 115/60 99 Mechanical Ventilator 80 05/11/20 08:00 122 05/11/20 08:00 119 27 124/62 99 Mechanical Ventilator 100 05/11/20 08:00 Endotracheal Tube 05/11/20 08:00 80 05/11/20 07:30 107 26 105/66 97 Mechanical Ventilator 40 05/11/20 07:28 109 28 80 05/11/20 07:00 22 89/50 Mechanical Ventilator 80 05/11/20 06:45 102 21 100 Mechanical Ventilator 40 05/11/20 06:30 107 26 96/58 100 Mechanical Ventilator 40 05/11/20 06:30 105 26 05/11/20 06:15 104 27 100 Mechanical Ventilator 40 05/11/20 06:00 109 27 111/76 100 Mechanical Ventilator 40 05/11/20 06:00 30 111/76 Mechanical Ventilator 40 05/11/20 05:45 112 30 100 Mechanical Ventilator 40 05/11/20 05:30 109 28 102/65 100 40 05/11/20 05:00 102 28 94/62 100 Mechanical Ventilator 40 05/11/20 05:00 28 94/62 Mechanical Ventilator 40 05/11/20 04:30 102 27 107/63 100 Mechanical Ventilator 40 05/11/20 04:00 40 05/11/20 04:00 26 110/68 Mechanical Ventilator 40 05/11/20 04:00 98.0 105 26 110/68 100 Mechanical Ventilator 40 05/11/20 04:00 Endotracheal Tube 05/11/20 04:00 111 05/11/20 03:30 110 26 121/62 100 Mechanical Ventilator 40 05/11/20 03:20 108 26 100 05/11/20 03:15 105 23 100 Mechanical Ventilator 40 05/11/20 03:00 26 108/72 Mechanical Ventilator 40 05/11/20 03:00 109 26 108/72 100 Mechanical Ventilator 40 05/11/20 02:45 114 25 100 Mechanical Ventilator 40 05/11/20 02:30 115 25 118/99 100 Mechanical Ventilator 40 05/11/20 02:15 115 26 100 Mechanical Ventilator 40 05/11/20 02:00 113 24 133/65 100 Mechanical Ventilator 40 05/11/20 02:00 25 133/65 Mechanical Ventilator 40 05/11/20 01:30 98 19 97/56 100 Mechanical Ventilator 40 05/11/20 01:17 22 98/78 Mechanical Ventilator 15.0 100 05/11/20 01:16 25 98/78 Mechanical Ventilator 40 05/11/20 01:00 25 98/59 Mechanical Ventilator 40 05/11/20 01:00 95 21 98/78 100 Mechanical Ventilator 40 05/11/20 00:30 98 21 96/59 100 Mechanical Ventilator 40 05/11/20 00:00 111 05/11/20 00:00 98.9 103 20 98/57 100 Mechanical Ventilator 40 05/11/20 00:00 40 05/11/20 00:00 21 96/59 Mechanical Ventilator 40 05/11/20 00:00 Endotracheal Tube 05/10/20 23:30 112 22 112/69 100 Mechanical Ventilator 40 05/10/20 23:29 115 25 100 05/10/20 23:00 121 25 124/65 100 Mechanical Ventilator 40 05/10/20 23:00 21 112/69 Mechanical Ventilator 40 05/10/20 22:30 124 24 125/59 100 Mechanical Ventilator 40 05/10/20 22:00 26 125/59 Mechanical Ventilator 40 05/10/20 22:00 121 22 118/58 92 Mechanical Ventilator 40 05/10/20 21:30 121 24 115/56 91 Mechanical Ventilator 40 05/10/20 21:00 122 27 110/61 90 Mechanical Ventilator 40 05/10/20 21:00 25 115/56 Mechanical Ventilator 40 05/10/20 20:53 122 111/58 05/10/20 20:30 123 24 111/56 89 Mechanical Ventilator 40 05/10/20 20:00 98.9 123 26 108/56 92 Mechanical Ventilator 40 05/10/20 20:00 122 05/10/20 20:00 Endotracheal Tube 05/10/20 20:00 25 111/56 Mechanical Ventilator 40 05/10/20 20:00 40 05/10/20 19:30 121 24 114/55 93 Mechanical Ventilator 40 05/10/20 19:18 24 106/58 Mechanical Ventilator 40 05/10/20 19:17 122 29 40 05/10/20 19:00 18 106/58 Mechanical Ventilator 40 05/10/20 19:00 119 27 106/58 94 Mechanical Ventilator 40 05/10/20 18:33 115 16 107/54 99 Mechanical Ventilator 40 05/10/20 18:00 117 20 112/65 89 Mechanical Ventilator 40 05/10/20 18:00 19 112/81 Mechanical Ventilator 40 05/10/20 17:36 40 05/10/20 17:31 113 20 112/81 89 Mechanical Ventilator 40 05/10/20 17:00 20 114/65 Mechanical Ventilator 40 05/10/20 17:00 97.3 116 18 125/73 90 Mechanical Ventilator 40 05/10/20 16:30 118 20 114/65 88 Mechanical Ventilator 40 05/10/20 16:00 114 05/10/20 16:00 18 125/76 Mechanical Ventilator 40 05/10/20 16:00 116 18 125/76 93 Mechanical Ventilator 40 05/10/20 16:00 Endotracheal Tube 05/10/20 15:30 110 23 40 05/10/20 15:30 108 16 122/62 92 Mechanical Ventilator 40 05/10/20 15:00 18 122/63 Mechanical Ventilator 40 05/10/20 15:00 105 18 105/60 88 Mechanical Ventilator 40 05/10/20 14:30 96 17 95/50 96 Mechanical Ventilator 40 05/10/20 14:00 17 95/50 Mechanical Ventilator 40 05/10/20 14:00 95 17 99/60 96 Mechanical Ventilator 40 05/10/20 13:30 95 18 99/64 95 Mechanical Ventilator 40 05/10/20 13:00 98 17 78/45 98 Mechanical Ventilator 40 05/10/20 13:00 17 99/64 Mechanical Ventilator 40 05/10/20 12:39 19 93/51 Mechanical Ventilator 40 05/10/20 12:30 98 16 96/56 96 Mechanical Ventilator 40 05/10/20 12:20 84/44 05/10/20 12:00 40 05/10/20 12:00 Endotracheal Tube 05/10/20 12:00 12 80/52 Mechanical Ventilator 40 05/10/20 12:00 102 05/10/20 12:00 98.7 22 80/52 100 Mechanical Ventilator 40 05/10/20 11:38 96 20 40 05/10/20 11:00 22 84/52 Mechanical Ventilator 40 05/10/20 11:00 99 22 84/52 95 Mechanical Ventilator 40 05/10/20 10:30 108 20 99/57 91 Mechanical Ventilator 40 Height (Feet): 5 Height (Inches): 8.00 Weight (Pounds): 159 HEENT: Eyes, pupils equal and responsive to light and accommodation. Extraocular movements are intact. NECK: Supple. No lymphadenopathy. CHEST: Mech Vent; Decreased breath sounds bilaterally without rales. CARDIOVASCULAR: Tachycardic, regular rhythm. S1 and S2 are normal without murmurs, rubs, or gallops. ABDOMEN: Soft, nontender, and nondistended. Positive bowel sounds. No evidence of hepatosplenomegaly. Currently, no rebound or guarding noted. EXTREMITIES: Negative for clubbing, cyanosis, or edema. Laboratory Tests Test 05/10/20 10:45 05/10/20 15:30 05/11/20 03:30 05/11/20 07:47 Urine Color Pale yellow Urine Appearance Clear Urine pH 5 (4.5-8.0) Urine Specific [place] 1.010 (1.005-1.035) Urine Protein Negative (NEGATIVE) Urine Glucose (UA) Negative (NEGATIVE) Urine Ketones 2+ (NEGATIVE) H Urine Blood Negative (NEGATIVE) Urine Nitrite Negative (NEGATIVE) Urine Bilirubin Negative (NEGATIVE) Urine Urobilinogen Normal MG/DL (0.0-1.0) Urine Leukocyte Esterase Negative (NEGATIVE) Vancomycin Level Trough 21.7 ug/mL (5.0-12.0) H White Blood Count 24.8 K/UL (4.8-10.8) *H Red Blood Count 3.03 M/UL (4.70-6.10) L Hemoglobin 9.4 G/DL (14.2-18.0) L Hematocrit 29.0 % (42.0-52.0) L Mean Corpuscular Volume 96 FL (80-99) Mean Corpuscular Hemoglobin 30.9 PG (27.0-31.0) Mean Corpuscular Hemoglobin Concent 32.3 G/DL (32.0-36.0) Red Cell Distribution Width 12.5 % (11.6-14.8) Platelet Count 387 K/UL (150-450) # Mean Platelet Volume 7.1 FL (6.5-10.1) Neutrophils (%) (Auto) % (45.0-75.0) Lymphocytes (%) (Auto) % (20.0-45.0) Monocytes (%) (Auto) % (1.0-10.0) Eosinophils (%) (Auto) % (0.0-3.0) Basophils (%) (Auto) % (0.0-2.0) Differential Total Cells Counted 100 Neutrophils % (Manual) 94 % (45-75) H Lymphocytes % (Manual) 2 % (20-45) L Monocytes % (Manual) 4 % (1-10) Eosinophils % (Manual) 0 % (0-3) Basophils % (Manual) 0 % (0-2) Band Neutrophils 0 % (0-8) Platelet Estimate Adequate Platelet Morphology Normal Sodium Level 142 MMOL/L (136-145) Potassium Level 2.9 MMOL/L (3.5-5.1) L Chloride Level 104 MMOL/L (98-107) Carbon Dioxide Level 31 MMOL/L (21-32) Anion Gap 7 mmol/L (5-15) Blood Urea Nitrogen 11 mg/dL (7-18) Creatinine 0.9 MG/DL (0.55-1.30) Estimat Glomerular Filtration Rate > 60 mL/min (>60) Glucose Level 112 MG/DL (74-106) H Calcium Level 8.2 MG/DL (8.5-10.1) L Phosphorus Level 3.1 MG/DL (2.5-4.9) Magnesium Level 1.7 MG/DL (1.8-2.4) L Total Bilirubin 0.5 MG/DL (0.2-1.0) Aspartate Amino Transf (AST/SGOT) 19 U/L (15-37) Alanine Aminotransferase (ALT/SGPT) 26 U/L (12-78) Alkaline Phosphatase 62 U/L (46-116) Total Protein 5.5 G/DL (6.4-8.2) L Albumin 1.6 G/DL (3.4-5.0) L Globulin 3.9 g/dL Albumin/Globulin Ratio 0.4 (1.0-2.7) L Arterial Blood pH 7.329 (7.350-7.450) Arterial Blood Partial Pressure CO2 59.3 mmHg (35.0-45.0) *H Arterial Blood Partial Pressure O2 79.5 mmHg (75.0-100.0) Arterial Blood HCO3 30.5 mmol/L (22.0-26.0) H Arterial Blood Oxygen Saturation 94.5 % (95-100) L Arterial Blood Base Excess 3.6 (-2-2) H Nicolas Test Positive Current Medications Medications (Trade) Dose Ordered Sig/Damion Route PRN Reason Start Time Stop Time Status Last Admin Dose Admin Acetaminophen (Tylenol) 650 mg Q4H PRN GT fever 05/02/20 12:45 06/01/20 12:44 05/10/20 08:26 Aspirin (ASA) 81 mg DAILY GT 05/05/20 09:00 06/19/20 08:59 05/11/20 08:29 Chlorhexidine Gluconate (Marci-Hex 2%) 1 applic DAILY@2000 TOPIC 05/03/20 20:00 08/01/20 19:59 05/10/20 20:53 Dextrose/Sodium Chloride 1,000 ml @ 50 mls/hr Q20H IV 05/08/20 10:30 06/07/20 10:29 05/10/20 22:05 Docusate Sodium (Colace) 100 mg EVERY 12 HOURS GT 05/10/20 21:00 06/09/20 20:59 05/11/20 08:29 Fentanyl Citrate 250 ml @ 0 mls/hr Q24H IV 05/03/20 22:03 08/01/20 22:02 05/11/20 09:32 Furosemide (Lasix) 40 mg EVERY 12 HOURS IV 05/10/20 09:00 06/09/20 08:59 05/11/20 08:29 Heparin Sodium (Porcine) (Heparin 5000 units/ml) 5,000 units EVERY 12 HOURS SUBQ 05/02/20 21:00 06/16/20 20:59 05/11/20 08:33 Iron Sucrose 100 mg/Sodium Chloride 60 ml @ 240 mls/hr BEDTIME IV 05/10/20 21:00 05/14/20 21:14 05/10/20 20:54 Levetiracetam (Keppra) 700 mg Q12HR GT 05/02/20 21:00 06/01/20 20:59 05/11/20 08:29 Lorazepam (Ativan 2mg/ml 1ml) 2 mg Q4H PRN IV For Anxiety/seizures 05/10/20 12:45 05/17/20 12:44 Meropenem 1 gm/ Sodium Chloride 55 ml @ 110 mls/hr Q8HR IVPB 05/02/20 15:00 05/16/20 23:59 05/11/20 05:11 Metoclopramide HCl (Reglan) 10 mg Q6H IVP 05/08/20 10:00 06/07/20 09:59 05/11/20 09:29 Metoprolol Tartrate (Lopressor) 25 mg Q12HR GT 05/10/20 21:00 08/08/20 08:59 05/11/20 08:30 Midodrine (Pro-Amatine) 10 mg Q8HR GT 05/04/20 22:00 08/02/20 21:59 05/11/20 05:11 Norepinephrine Bitartrate 250 ml @ 0 mls/hr Q24H IV 05/02/20 12:48 07/31/20 12:47 05/10/20 12:20 Ondansetron HCl (Zofran) 4 mg Q6H PRN IVP Nausea & Vomiting 05/02/20 12:45 06/01/20 12:44 Pantoprazole (Protonix) 40 mg DAILY IVP 05/10/20 09:00 06/09/20 08:59 05/11/20 08:29 Polyethylene Glycol (Miralax) 17 gm DAILYPRN PRN GT Constipation 05/02/20 12:45 06/01/20 12:44 Potassium Chloride 100 ml @ 100 mls/hr Q1HR IVPB 05/11/20 08:00 05/11/20 11:59 05/11/20 09:29 Vancomycin HCl (Vanco pharmacy to dose) 1 ea DAILY PRN MISC Per rx protocol 05/05/20 09:45 06/04/20 09:44 Vancomycin HCl 1 gm/Dextrose 275 ml @ 183.708 mls/hr Q12HR@1000,2200 IVPB 05/10/20 22:00 05/15/20 21:59 05/10/20 22:05 Charlene Stokes M.D. May 11, 2020 10:29
--- NOTE | 2020-05-11 11:01 | Cardiac Electrophysiology PN ---
Assessment/Plan Assessment/Plan 1. Sinus tachycardia due with no evidence of atrial fibrillation or SVT. This is due to the patient's underlying sepsis and pneumonia. His echocardiogram showed ejection fraction of 55%. The patient received his second dose of digoxin as there was a question of atrial fibrillation. HR better on Lopressor 25 bid 2. Respiratory failure, currently on the ventilator and iv Abx. Echocardiogram showed normal left ventricular systolic function but brain natriuretic peptide is almost 4000. Continue Lasix 40 iv bid. 3. History of seizure disorder. 4. Dysphagia, status post PEG placement. Further evaluation by Dr. Liu. 5. COPD, nosocomial pneumonia. 6. History of CVA. Subjective Subjective In ICU on the Vent on fentanyl drip. Fio2 increased to 100% overnight and now down to 80%. Off Levo since yesterday Objective Last 24 Hour Vital Signs Date Time Temp Pulse Resp B/P (MAP) Pulse Ox O2 Delivery O2 Flow Rate FiO2 05/11/20 10:33 118 30 134/85 100 Mechanical Ventilator 80 05/11/20 10:00 112 25 104/64 100 Mechanical Ventilator 80 05/11/20 09:32 30 113/97 Mechanical Ventilator 15.0 80 05/11/20 09:30 98.5 122 30 117/89 100 Mechanical Ventilator 80 05/11/20 09:27 125 30 80 05/11/20 09:00 130 27 113/97 99 Mechanical Ventilator 80 05/11/20 08:30 124 124/62 05/11/20 08:30 123 27 115/60 99 Mechanical Ventilator 80 05/11/20 08:00 122 05/11/20 08:00 119 27 124/62 99 Mechanical Ventilator 100 05/11/20 08:00 Endotracheal Tube 05/11/20 08:00 80 05/11/20 07:30 107 26 105/66 97 Mechanical Ventilator 40 05/11/20 07:28 109 28 80 05/11/20 07:00 22 89/50 Mechanical Ventilator 80 05/11/20 06:45 102 21 100 Mechanical Ventilator 40 05/11/20 06:30 107 26 96/58 100 Mechanical Ventilator 40 05/11/20 06:30 105 26 05/11/20 06:15 104 27 100 Mechanical Ventilator 40 05/11/20 06:00 109 27 111/76 100 Mechanical Ventilator 40 05/11/20 06:00 30 111/76 Mechanical Ventilator 40 05/11/20 05:45 112 30 100 Mechanical Ventilator 40 05/11/20 05:30 109 28 102/65 100 40 05/11/20 05:00 102 28 94/62 100 Mechanical Ventilator 40 05/11/20 05:00 28 94/62 Mechanical Ventilator 40 05/11/20 04:30 102 27 107/63 100 Mechanical Ventilator 40 05/11/20 04:00 40 05/11/20 04:00 26 110/68 Mechanical Ventilator 40 05/11/20 04:00 98.0 105 26 110/68 100 Mechanical Ventilator 40 05/11/20 04:00 Endotracheal Tube 05/11/20 04:00 111 05/11/20 03:30 110 26 121/62 100 Mechanical Ventilator 40 05/11/20 03:20 108 26 100 05/11/20 03:15 105 23 100 Mechanical Ventilator 40 05/11/20 03:00 26 108/72 Mechanical Ventilator 40 05/11/20 03:00 109 26 108/72 100 Mechanical Ventilator 40 05/11/20 02:45 114 25 100 Mechanical Ventilator 40 05/11/20 02:30 115 25 118/99 100 Mechanical Ventilator 40 05/11/20 02:15 115 26 100 Mechanical Ventilator 40 05/11/20 02:00 113 24 133/65 100 Mechanical Ventilator 40 05/11/20 02:00 25 133/65 Mechanical Ventilator 40 05/11/20 01:30 98 19 97/56 100 Mechanical Ventilator 40 05/11/20 01:17 22 98/78 Mechanical Ventilator 15.0 100 05/11/20 01:16 25 98/78 Mechanical Ventilator 40 05/11/20 01:00 25 98/59 Mechanical Ventilator 40 05/11/20 01:00 95 21 98/78 100 Mechanical Ventilator 40 05/11/20 00:30 98 21 96/59 100 Mechanical Ventilator 40 05/11/20 00:00 111 05/11/20 00:00 98.9 103 20 98/57 100 Mechanical Ventilator 40 05/11/20 00:00 40 05/11/20 00:00 21 96/59 Mechanical Ventilator 40 05/11/20 00:00 Endotracheal Tube 05/10/20 23:30 112 22 112/69 100 Mechanical Ventilator 40 05/10/20 23:29 115 25 100 05/10/20 23:00 121 25 124/65 100 Mechanical Ventilator 40 05/10/20 23:00 21 112/69 Mechanical Ventilator 40 05/10/20 22:30 124 24 125/59 100 Mechanical Ventilator 40 05/10/20 22:00 26 125/59 Mechanical Ventilator 40 05/10/20 22:00 121 22 118/58 92 Mechanical Ventilator 40 05/10/20 21:30 121 24 115/56 91 Mechanical Ventilator 40 05/10/20 21:00 122 27 110/61 90 Mechanical Ventilator 40 05/10/20 21:00 25 115/56 Mechanical Ventilator 40 05/10/20 20:53 122 111/58 05/10/20 20:30 123 24 111/56 89 Mechanical Ventilator 40 05/10/20 20:00 98.9 123 26 108/56 92 Mechanical Ventilator 40 05/10/20 20:00 122 05/10/20 20:00 Endotracheal Tube 05/10/20 20:00 25 111/56 Mechanical Ventilator 40 05/10/20 20:00 40 05/10/20 19:30 121 24 114/55 93 Mechanical Ventilator 40 05/10/20 19:18 24 106/58 Mechanical Ventilator 40 05/10/20 19:17 122 29 40 05/10/20 19:00 18 106/58 Mechanical Ventilator 40 05/10/20 19:00 119 27 106/58 94 Mechanical Ventilator 40 05/10/20 18:33 115 16 107/54 99 Mechanical Ventilator 40 05/10/20 18:00 117 20 112/65 89 Mechanical Ventilator 40 05/10/20 18:00 19 112/81 Mechanical Ventilator 40 05/10/20 17:36 40 05/10/20 17:31 113 20 112/81 89 Mechanical Ventilator 40 05/10/20 17:00 20 114/65 Mechanical Ventilator 40 05/10/20 17:00 97.3 116 18 125/73 90 Mechanical Ventilator 40 05/10/20 16:30 118 20 114/65 88 Mechanical Ventilator 40 05/10/20 16:00 114 05/10/20 16:00 18 125/76 Mechanical Ventilator 40 05/10/20 16:00 116 18 125/76 93 Mechanical Ventilator 40 05/10/20 16:00 Endotracheal Tube 05/10/20 15:30 110 23 40 05/10/20 15:30 108 16 122/62 92 Mechanical Ventilator 40 05/10/20 15:00 18 122/63 Mechanical Ventilator 40 05/10/20 15:00 105 18 105/60 88 Mechanical Ventilator 40 05/10/20 14:30 96 17 95/50 96 Mechanical Ventilator 40 05/10/20 14:00 17 95/50 Mechanical Ventilator 40 05/10/20 14:00 95 17 99/60 96 Mechanical Ventilator 40 05/10/20 13:30 95 18 99/64 95 Mechanical Ventilator 40 05/10/20 13:00 98 17 78/45 98 Mechanical Ventilator 40 05/10/20 13:00 17 99/64 Mechanical Ventilator 40 05/10/20 12:39 19 93/51 Mechanical Ventilator 40 05/10/20 12:30 98 16 96/56 96 Mechanical Ventilator 40 05/10/20 12:20 84/44 05/10/20 12:00 40 05/10/20 12:00 Endotracheal Tube 05/10/20 12:00 12 80/52 Mechanical Ventilator 40 05/10/20 12:00 102 05/10/20 12:00 98.7 22 80/52 100 Mechanical Ventilator 40 05/10/20 11:38 96 20 40 05/10/20 11:00 22 84/52 Mechanical Ventilator 40 05/10/20 11:00 99 22 84/52 95 Mechanical Ventilator 40 Intake and Output 05/10/20 05/11/20 19:00 07:00 Intake Total 2054.689 ml 1908.000 ml Output Total 2830 ml 2970 ml Balance -775.311 ml -1062.000 ml Intake Free Water 90 ml IV Total 1964.689 ml 1788.000 ml Other 120 ml Output Urine Total 2830 ml 2970 ml Laboratory Tests Test 05/10/20 15:30 05/11/20 03:30 05/11/20 07:47 Vancomycin Level Trough 21.7 ug/mL (5.0-12.0) H White Blood Count 24.8 K/UL (4.8-10.8) *H Red Blood Count 3.03 M/UL (4.70-6.10) L Hemoglobin 9.4 G/DL (14.2-18.0) L Hematocrit 29.0 % (42.0-52.0) L Mean Corpuscular Volume 96 FL (80-99) Mean Corpuscular Hemoglobin 30.9 PG (27.0-31.0) Mean Corpuscular Hemoglobin Concent 32.3 G/DL (32.0-36.0) Red Cell Distribution Width 12.5 % (11.6-14.8) Platelet Count 387 K/UL (150-450) # Mean Platelet Volume 7.1 FL (6.5-10.1) Neutrophils (%) (Auto) % (45.0-75.0) Lymphocytes (%) (Auto) % (20.0-45.0) Monocytes (%) (Auto) % (1.0-10.0) Eosinophils (%) (Auto) % (0.0-3.0) Basophils (%) (Auto) % (0.0-2.0) Differential Total Cells Counted 100 Neutrophils % (Manual) 94 % (45-75) H Lymphocytes % (Manual) 2 % (20-45) L Monocytes % (Manual) 4 % (1-10) Eosinophils % (Manual) 0 % (0-3) Basophils % (Manual) 0 % (0-2) Band Neutrophils 0 % (0-8) Platelet Estimate Adequate Platelet Morphology Normal Sodium Level 142 MMOL/L (136-145) Potassium Level 2.9 MMOL/L (3.5-5.1) L Chloride Level 104 MMOL/L (98-107) Carbon Dioxide Level 31 MMOL/L (21-32) Anion Gap 7 mmol/L (5-15) Blood Urea Nitrogen 11 mg/dL (7-18) Creatinine 0.9 MG/DL (0.55-1.30) Estimat Glomerular Filtration Rate > 60 mL/min (>60) Glucose Level 112 MG/DL (74-106) H Calcium Level 8.2 MG/DL (8.5-10.1) L Phosphorus Level 3.1 MG/DL (2.5-4.9) Magnesium Level 1.7 MG/DL (1.8-2.4) L Total Bilirubin 0.5 MG/DL (0.2-1.0) Aspartate Amino Transf (AST/SGOT) 19 U/L (15-37) Alanine Aminotransferase (ALT/SGPT) 26 U/L (12-78) Alkaline Phosphatase 62 U/L (46-116) Total Protein 5.5 G/DL (6.4-8.2) L Albumin 1.6 G/DL (3.4-5.0) L Globulin 3.9 g/dL Albumin/Globulin Ratio 0.4 (1.0-2.7) L Arterial Blood pH 7.329 (7.350-7.450) Arterial Blood Partial Pressure CO2 59.3 mmHg (35.0-45.0) *H Arterial Blood Partial Pressure O2 79.5 mmHg (75.0-100.0) Arterial Blood HCO3 30.5 mmol/L (22.0-26.0) H Arterial Blood Oxygen Saturation 94.5 % (95-100) L Arterial Blood Base Excess 3.6 (-2-2) H Nicolas Test Positive Objective HEAD AND NECK: No JVD. He is orally intubated. LUNGS: Coarse rhonchi. CARDIOVASCULAR: Shows tachycardic S1 and S2 with no gallop. ABDOMEN: Status post G-tube. EXTREMITIES: 1+ pitting edema. Trace Diaz MD May 11, 2020 11:01
[2020-05-11] MEDS: Micafungin 100 MG in NS 110 ML IVPB SCH (12:25)
--- NOTE | 2020-05-11 12:31 | Nephrology Progress Note ---
Assessment/Plan Problem List: (1) Electrolyte imbalance (2) Dehydration (3) Acute respiratory failure (4) Seizure disorder Assessment Severe electrolyte abnormalities Low magnesium, low phosphorus, low potassium, Other active conditions: (1) Acute respiratory failure (2) Sepsis (3) Nosocomial pneumonia (4) Seizure disorder (5) Dehydration (6) COPD (chronic obstructive pulmonary disease) (7) senior care resident (8) History of CVA (cerebrovascular accident) Plan May 11 renal parameters stable. Continue digoxin for tachycardia May 10: Tachycardia improved. Renal parameters stable. Continue per consultants. May 09: Patient remains tachycardic. 2D echocardiogram done results pending. 1 dose of IV digoxin ordered. Discussed with ASAD Dixon. Remains stable from renal standpoint of view. May 08: Magnesium sulfate IV ordered for hypomagnesemia. Patient has metabolic acidosis. IV sodium bicarb given. Feeding on hold due to residual. IV Reglan ordered. IV fluid changed to D10 normal saline. 2D echocardiogram ordered for tachycardia. Chest x-ray suggests worsening pulmonary infiltrate. Discussed with ASAD Stevens Remains stable from renal standpoint of view Discussed with RN mag , phosphorus and potassium supplement as needed Monitor electrolytes Continue per consultants Subjective ROS Limited/Unobtainable: Yes Objective Objective Last 24 Hour Vital Signs Date Time Temp Pulse Resp B/P (MAP) Pulse Ox O2 Delivery O2 Flow Rate FiO2 05/11/20 12:04 99.8 106 30 98/66 100 Mechanical Ventilator 100 05/11/20 11:58 108 05/11/20 11:30 107 30 120/63 100 Mechanical Ventilator 100 05/11/20 11:04 112 28 80 05/11/20 11:00 114 30 114/62 100 Mechanical Ventilator 100 05/11/20 10:33 118 30 134/85 100 Mechanical Ventilator 80 05/11/20 10:00 112 25 104/64 100 Mechanical Ventilator 80 05/11/20 10:00 25 134/85 Mechanical Ventilator 80 05/11/20 09:32 30 113/97 Mechanical Ventilator 15.0 80 05/11/20 09:30 98.5 122 30 117/89 100 Mechanical Ventilator 80 05/11/20 09:27 125 30 80 05/11/20 09:00 30 117/89 Mechanical Ventilator 80 05/11/20 09:00 130 27 113/97 99 Mechanical Ventilator 80 05/11/20 08:30 124 124/62 05/11/20 08:30 123 27 115/60 99 Mechanical Ventilator 80 05/11/20 08:00 122 05/11/20 08:00 119 27 124/62 99 Mechanical Ventilator 100 05/11/20 08:00 Endotracheal Tube 05/11/20 08:00 20 115/60 Mechanical Ventilator 80 05/11/20 08:00 80 05/11/20 07:30 107 26 105/66 97 Mechanical Ventilator 40 05/11/20 07:28 109 28 80 05/11/20 07:00 22 89/50 Mechanical Ventilator 80 05/11/20 06:45 102 21 100 Mechanical Ventilator 40 05/11/20 06:30 107 26 96/58 100 Mechanical Ventilator 40 05/11/20 06:30 105 26 05/11/20 06:15 104 27 100 Mechanical Ventilator 40 05/11/20 06:00 109 27 111/76 100 Mechanical Ventilator 40 05/11/20 06:00 30 111/76 Mechanical Ventilator 40 05/11/20 05:45 112 30 100 Mechanical Ventilator 40 05/11/20 05:30 109 28 102/65 100 40 05/11/20 05:00 102 28 94/62 100 Mechanical Ventilator 40 05/11/20 05:00 28 94/62 Mechanical Ventilator 40 05/11/20 04:30 102 27 107/63 100 Mechanical Ventilator 40 05/11/20 04:00 40 05/11/20 04:00 26 110/68 Mechanical Ventilator 40 05/11/20 04:00 98.0 105 26 110/68 100 Mechanical Ventilator 40 05/11/20 04:00 Endotracheal Tube 05/11/20 04:00 111 05/11/20 03:30 110 26 121/62 100 Mechanical Ventilator 40 05/11/20 03:20 108 26 100 05/11/20 03:15 105 23 100 Mechanical Ventilator 40 05/11/20 03:00 26 108/72 Mechanical Ventilator 40 05/11/20 03:00 109 26 108/72 100 Mechanical Ventilator 40 05/11/20 02:45 114 25 100 Mechanical Ventilator 40 05/11/20 02:30 115 25 118/99 100 Mechanical Ventilator 40 05/11/20 02:15 115 26 100 Mechanical Ventilator 40 05/11/20 02:00 113 24 133/65 100 Mechanical Ventilator 40 05/11/20 02:00 25 133/65 Mechanical Ventilator 40 05/11/20 01:30 98 19 97/56 100 Mechanical Ventilator 40 05/11/20 01:17 22 98/78 Mechanical Ventilator 15.0 100 05/11/20 01:16 25 98/78 Mechanical Ventilator 40 05/11/20 01:00 25 98/59 Mechanical Ventilator 40 05/11/20 01:00 95 21 98/78 100 Mechanical Ventilator 40 05/11/20 00:30 98 21 96/59 100 Mechanical Ventilator 40 05/11/20 00:00 111 05/11/20 00:00 98.9 103 20 98/57 100 Mechanical Ventilator 40 05/11/20 00:00 40 05/11/20 00:00 21 96/59 Mechanical Ventilator 40 05/11/20 00:00 Endotracheal Tube 05/10/20 23:30 112 22 112/69 100 Mechanical Ventilator 40 05/10/20 23:29 115 25 100 05/10/20 23:00 121 25 124/65 100 Mechanical Ventilator 40 05/10/20 23:00 21 112/69 Mechanical Ventilator 40 05/10/20 22:30 124 24 125/59 100 Mechanical Ventilator 40 05/10/20 22:00 26 125/59 Mechanical Ventilator 40 05/10/20 22:00 121 22 118/58 92 Mechanical Ventilator 40 05/10/20 21:30 121 24 115/56 91 Mechanical Ventilator 40 05/10/20 21:00 122 27 110/61 90 Mechanical Ventilator 40 05/10/20 21:00 25 115/56 Mechanical Ventilator 40 05/10/20 20:53 122 111/58 05/10/20 20:30 123 24 111/56 89 Mechanical Ventilator 40 05/10/20 20:00 98.9 123 26 108/56 92 Mechanical Ventilator 40 05/10/20 20:00 122 05/10/20 20:00 Endotracheal Tube 05/10/20 20:00 25 111/56 Mechanical Ventilator 40 05/10/20 20:00 40 05/10/20 19:30 121 24 114/55 93 Mechanical Ventilator 40 05/10/20 19:18 24 106/58 Mechanical Ventilator 40 05/10/20 19:17 122 29 40 05/10/20 19:00 18 106/58 Mechanical Ventilator 40 05/10/20 19:00 119 27 106/58 94 Mechanical Ventilator 40 05/10/20 18:33 115 16 107/54 99 Mechanical Ventilator 40 05/10/20 18:00 117 20 112/65 89 Mechanical Ventilator 40 05/10/20 18:00 19 112/81 Mechanical Ventilator 40 05/10/20 17:36 40 05/10/20 17:31 113 20 112/81 89 Mechanical Ventilator 40 05/10/20 17:00 20 114/65 Mechanical Ventilator 40 05/10/20 17:00 97.3 116 18 125/73 90 Mechanical Ventilator 40 05/10/20 16:30 118 20 114/65 88 Mechanical Ventilator 40 05/10/20 16:00 114 05/10/20 16:00 18 125/76 Mechanical Ventilator 40 05/10/20 16:00 116 18 125/76 93 Mechanical Ventilator 40 05/10/20 16:00 Endotracheal Tube 05/10/20 15:30 110 23 40 05/10/20 15:30 108 16 122/62 92 Mechanical Ventilator 40 05/10/20 15:00 18 122/63 Mechanical Ventilator 40 05/10/20 15:00 105 18 105/60 88 Mechanical Ventilator 40 05/10/20 14:30 96 17 95/50 96 Mechanical Ventilator 40 05/10/20 14:00 17 95/50 Mechanical Ventilator 40 05/10/20 14:00 95 17 99/60 96 Mechanical Ventilator 40 05/10/20 13:30 95 18 99/64 95 Mechanical Ventilator 40 05/10/20 13:00 98 17 78/45 98 Mechanical Ventilator 40 05/10/20 13:00 17 99/64 Mechanical Ventilator 40 05/10/20 12:39 19 93/51 Mechanical Ventilator 40 05/10/20 12:30 98 16 96/56 96 Mechanical Ventilator 40 Intake and Output 05/10/20 05/11/20 19:00 07:00 Intake Total 2054.689 ml 1908.000 ml Output Total 2830 ml 2970 ml Balance -775.311 ml -1062.000 ml Intake Free Water 90 ml IV Total 1964.689 ml 1788.000 ml Other 120 ml Output Urine Total 2830 ml 2970 ml Laboratory Tests 05/10/20 15:30: Vancomycin Level Trough 21.7H 05/11/20 03:30: White Blood Count 24.8*H, Red Blood Count 3.03L, Hemoglobin 9.4L, Hematocrit 29.0L, Mean Corpuscular Volume 96, Mean Corpuscular Hemoglobin 30.9, Mean Corpuscular Hemoglobin Concent 32.3, Red Cell Distribution Width 12.5, Platelet Count 387#, Mean Platelet Volume 7.1, Neutrophils (%) (Auto) , Lymphocytes (%) ( Auto) , Monocytes (%) (Auto) , Eosinophils (%) (Auto) , Basophils (%) (Auto) , Differential Total Cells Counted 100, Neutrophils % (Manual) 94H, Lymphocytes % (Manual) 2L, Monocytes % (Manual) 4, Eosinophils % (Manual) 0, Basophils % ( Manual) 0, Band Neutrophils 0, Platelet Estimate Adequate, Platelet Morphology Normal, Sodium Level 142, Potassium Level 2.9L, Chloride Level 104, Carbon Dioxide Level 31, Anion Gap 7, Blood Urea Nitrogen 11, Creatinine 0.9, Estimat Glomerular Filtration Rate > 60, Glucose Level 112H, Calcium Level 8.2L, Phosphorus Level 3.1, Magnesium Level 1.7L, Total Bilirubin 0.5, Aspartate Amino Transf (AST/SGOT) 19, Alanine Aminotransferase (ALT/SGPT) 26, Alkaline Phosphatase 62, Total Protein 5.5L, Albumin 1.6L, Globulin 3.9, Albumin/ Globulin Ratio 0.4L 05/11/20 07:47: Arterial Blood pH 7.329L, Arterial Blood Partial Pressure CO2 59.3*H, Arterial Blood Partial Pressure O2 79.5, Arterial Blood HCO3 30.5H, Arterial Blood Oxygen Saturation 94.5L, Arterial Blood Base Excess 3.6H, Nicolas Test Positive Height (Feet): 5 Height (Inches): 8.00 Weight (Pounds): 159 General Appearance: no apparent distress EENT: other - Intubated on ventilator Cardiovascular: tachycardia Respiratory/Chest: decreased breath sounds Abdomen: distended Kin Bustillo MD May 11, 2020 12:31
[2020-05-11] MEDS: Norepinephrine 4mg/NS Premix 250 ML IV SCH ×2 (12:48→22:22)
[2020-05-11] MEDS ORDERED: Digoxin 0.5mg/2ml Inj IVP SCH (12:59)
--- NOTE | 2020-05-11 14:02 | Diagnostic Imaging Report ---
Procedure: XRAY Chest 1v Reason for study: Reason For Exam: [id number] Comparison films: 05/10/2020. FINDINGS: Endotracheal tube and right central venous catheter remain in place. Bilateral alveolar infiltrates again noted. There is mildly improved aeration right lung base but there is increased infiltrates in the upper lobe Cardiac and mediastinal silhouette are within normal limits. There are bilateral small effusions. The bony thorax appear unremarkable. IMPRESSION: Bilateral infiltrates. Slight improved aeration right lung base but increased upper lobe infiltrates.
--- NOTE | 2020-05-11 17:05 | Internal Med Progress Note ---
Subjective Date of Service: May 11, 2020 Physician Name AmeliaObey Attending Physician Marky Go MD Current Medications Medications (Trade) Dose Ordered Sig/Damion Route PRN Reason Start Time Stop Time Status Last Admin Dose Admin Acetaminophen (Tylenol) 650 mg Q4H PRN GT fever 05/02/20 12:45 06/01/20 12:44 05/10/20 08:26 Aspirin (ASA) 81 mg DAILY GT 05/05/20 09:00 06/19/20 08:59 05/11/20 08:29 Chlorhexidine Gluconate (Marci-Hex 2%) 1 applic DAILY@1999 TOPIC 05/03/20 20:00 08/01/20 19:59 05/10/20 20:53 Dextrose/Sodium Chloride 1,000 ml @ 50 mls/hr Q20H IV 05/08/20 10:30 06/07/20 10:29 05/10/20 22:05 Docusate Sodium (Colace) 100 mg EVERY 12 HOURS GT 05/10/20 21:00 06/09/20 20:59 05/11/20 08:29 Fentanyl Citrate 250 ml @ 0 mls/hr Q24H IV 05/03/20 22:03 08/01/20 22:02 05/11/20 09:32 Furosemide (Lasix) 40 mg EVERY 12 HOURS IV 05/10/20 09:00 06/09/20 08:59 05/11/20 08:29 Heparin Sodium (Porcine) (Heparin 5000 units/ml) 5,000 units EVERY 12 HOURS SUBQ 05/02/20 21:00 06/16/20 20:59 05/11/20 08:33 Iron Sucrose 100 mg/Sodium Chloride 60 ml @ 240 mls/hr BEDTIME IV 05/10/20 21:00 05/14/20 21:14 05/10/20 20:54 Levetiracetam (Keppra) 700 mg Q12HR GT 05/02/20 21:00 06/01/20 20:59 05/11/20 08:29 Lorazepam (Ativan 2mg/ml 1ml) 2 mg Q4H PRN IV For Anxiety/seizures 05/10/20 12:45 05/17/20 12:44 Meropenem 1 gm/ Sodium Chloride 55 ml @ 110 mls/hr Q8HR IVPB 05/02/20 15:00 05/16/20 23:59 05/11/20 13:26 Metoclopramide HCl (Reglan) 10 mg Q6H IVP 05/08/20 10:00 06/07/20 09:59 05/11/20 15:27 Metoprolol Tartrate (Lopressor) 25 mg Q12HR GT 05/10/20 21:00 08/08/20 08:59 05/11/20 08:30 Micafungin Sodium 100 mg/Sodium Chloride 110 ml @ 110 mls/hr Q24H IVPB 05/11/20 12:00 05/18/20 11:59 05/11/20 12:25 Midodrine (Pro-Amatine) 10 mg Q8HR GT 05/04/20 22:00 08/02/20 21:59 05/11/20 13:26 Norepinephrine Bitartrate 250 ml @ 0 mls/hr Q24H IV 05/02/20 12:48 07/31/20 12:47 05/10/20 12:20 Ondansetron HCl (Zofran) 4 mg Q6H PRN IVP Nausea & Vomiting 05/02/20 12:45 06/01/20 12:44 Pantoprazole (Protonix) 40 mg DAILY IVP 05/10/20 09:00 06/09/20 08:59 05/11/20 08:29 Polyethylene Glycol (Miralax) 17 gm BEDTIME ORAL 05/11/20 21:00 06/10/20 20:59 Polyethylene Glycol (Miralax) 17 gm DAILYPRN PRN GT Constipation 05/02/20 12:45 06/01/20 12:44 Vancomycin HCl (Vanco pharmacy to dose) 1 ea DAILY PRN MISC Per rx protocol 05/05/20 09:45 06/04/20 09:44 Vancomycin HCl 1 gm/Dextrose 275 ml @ 183.708 mls/hr Q12HR@1000,2200 IVPB 05/10/20 22:00 05/15/20 21:59 05/11/20 10:26 Allergies: Coded Allergies: DIPHENHYDRAMINE (Verified Allergy, Unknown, 02/27/20) ROS Limited/Unobtainable: Yes Subjective 59 YO M admitted with respiratory failure. Now pneumonia. Intubated and sedated. Cover for Int Med-Dr Go. ICU Objective Last Vital Signs Date Time Temp Pulse Resp B/P (MAP) Pulse Ox O2 Delivery O2 Flow Rate FiO2 05/11/20 16:34 117 23 80 05/11/20 16:30 115/56 100 Mechanical Ventilator 05/11/20 16:00 98.0 05/11/20 09:32 15.0 Laboratory Tests Test 05/11/20 03:30 05/11/20 07:47 White Blood Count 24.8 K/UL (4.8-10.8) *H Red Blood Count 3.03 M/UL (4.70-6.10) L Hemoglobin 9.4 G/DL (14.2-18.0) L Hematocrit 29.0 % (42.0-52.0) L Mean Corpuscular Volume 96 FL (80-99) Mean Corpuscular Hemoglobin 30.9 PG (27.0-31.0) Mean Corpuscular Hemoglobin Concent 32.3 G/DL (32.0-36.0) Red Cell Distribution Width 12.5 % (11.6-14.8) Platelet Count 387 K/UL (150-450) # Mean Platelet Volume 7.1 FL (6.5-10.1) Neutrophils (%) (Auto) % (45.0-75.0) Lymphocytes (%) (Auto) % (20.0-45.0) Monocytes (%) (Auto) % (1.0-10.0) Eosinophils (%) (Auto) % (0.0-3.0) Basophils (%) (Auto) % (0.0-2.0) Differential Total Cells Counted 100 Neutrophils % (Manual) 94 % (45-75) H Lymphocytes % (Manual) 2 % (20-45) L Monocytes % (Manual) 4 % (1-10) Eosinophils % (Manual) 0 % (0-3) Basophils % (Manual) 0 % (0-2) Band Neutrophils 0 % (0-8) Platelet Estimate Adequate Platelet Morphology Normal Sodium Level 142 MMOL/L (136-145) Potassium Level 2.9 MMOL/L (3.5-5.1) L Chloride Level 104 MMOL/L (98-107) Carbon Dioxide Level 31 MMOL/L (21-32) Anion Gap 7 mmol/L (5-15) Blood Urea Nitrogen 11 mg/dL (7-18) Creatinine 0.9 MG/DL (0.55-1.30) Estimat Glomerular Filtration Rate > 60 mL/min (>60) Glucose Level 112 MG/DL (74-106) H Calcium Level 8.2 MG/DL (8.5-10.1) L Phosphorus Level 3.1 MG/DL (2.5-4.9) Magnesium Level 1.7 MG/DL (1.8-2.4) L Total Bilirubin 0.5 MG/DL (0.2-1.0) Aspartate Amino Transf (AST/SGOT) 19 U/L (15-37) Alanine Aminotransferase (ALT/SGPT) 26 U/L (12-78) Alkaline Phosphatase 62 U/L (46-116) Total Protein 5.5 G/DL (6.4-8.2) L Albumin 1.6 G/DL (3.4-5.0) L Globulin 3.9 g/dL Albumin/Globulin Ratio 0.4 (1.0-2.7) L Arterial Blood pH 7.329 (7.350-7.450) Arterial Blood Partial Pressure CO2 59.3 mmHg (35.0-45.0) *H Arterial Blood Partial Pressure O2 79.5 mmHg (75.0-100.0) Arterial Blood HCO3 30.5 mmol/L (22.0-26.0) H Arterial Blood Oxygen Saturation 94.5 % (95-100) L Arterial Blood Base Excess 3.6 (-2-2) H Nicolas Test Positive Intake and Output 05/10/20 05/11/20 19:00 07:00 Intake Total 2054.689 ml 1908.000 ml Output Total 2830 ml 2970 ml Balance -775.311 ml -1062.000 ml Intake Free Water 90 ml IV Total 1964.689 ml 1788.000 ml Other 120 ml Output Urine Total 2830 ml 2970 ml Objective PHYSICAL EXAMINATION: GENERAL: The patient is a thin-appearing male, in severe respiratory distress. HEENT: Eyes, pupils equal and responsive to light and accommodation. Extraocular movements are intact. NECK: Supple. No lymphadenopathy. CHEST: Mech Vent; Decreased breath sounds bilaterally without rales. CARDIOVASCULAR: Tachycardic, regular rhythm. S1 and S2 are normal without murmurs, rubs, or gallops. ABDOMEN: Soft, nontender, and nondistended. Positive bowel sounds. No evidence of hepatosplenomegaly. Currently, no rebound or guarding noted. EXTREMITIES: Negative for clubbing, cyanosis, or edema. RECTAL/GENITAL: Not performed. NEUROLOGICAL: Unable to assess Assessment/Plan Assessment/Plan ASSESSMENT: This is a 59-year-old male. 1. Shortness of breath. 2. Hypoxia. 3. Right lower lobe pneumonia=enterobacter, pseudamonas, and staph aureus 4. Acute respiratory failure. 5. History of cerebrovascular accident. 6. Seizure disorder. 7. Functional quadriplegia. 8. Schizophrenia. 9. Dysphagia. 10. Urinary tract infection=proteus mirabilis 11. Sinus Tachycardia 12.Inceased tube feed residuals TREATMENT: 1. Respiratory failure/pneumonia. Intubated; A pulmonary consultation has been obtained with Dr. Ana Maria Hansen. The patient was febrile on admission. Antibiotics= vancomycin and mycofungin. ID=Dr Stokes 2. Seizure disorder. Continue Keppra, Depakote as above. 3. Functional quadriplegia. 4. Schizophrenia. Continue Risperdal as above. 5. Dysphagia. The patient is status post PEG. 6. Cardiology=Dr Diaz 7. GI=Obey Stahl MD May 11, 2020 17:05
[2020-05-11] MEDS: Dextrose 10%/0.9% SOD CHL 1,000 ML IV SCH (18:50)
[2020-05-11] MEDS: Dyna-Hex 2% Top Sol 2oz TOPIC SCH (19:56)
[2020-05-11] MEDS: LORazepam Inj 2mg/ml 1ml IV PRN (19:56)
[2020-05-11] MEDS: Acetaminophen 650mg/20.3ml GT PRN (19:56)
[2020-05-11] MEDS: Miralax 17gm pkt ORAL SCH (20:50)
[2020-05-11] MEDS: Iron Sucrose 100 MG in NS 55 ML IV SCH (20:51)
[2020-05-12] VITALS (61 sets, daily range): BP systolic 76–162; BP diastolic 43–83
[2020-05-12] MEDS: Metoclopramide 10mg/2ml Inj IVP SCH ×4 (04:24→21:30)
[2020-05-12 05:26] LABS: HEMATOCRIT 30.1 % (42.0-52.0); HEMOGLOBIN 9.9 G/DL (14.2-18.0); MEAN CORPUSCULAR VOLUME 95 FL (80-99); PLATELET COUNT 414 K/UL (150-450); RED BLOOD COUNT 3.15 M/UL (4.70-6.10); RED CELL DISTRIBUTION WIDTH 12.6 % (11.6-14.8)
[2020-05-12] MEDS: Meropenem 1 GM in NS 55 ML IVPB SCH ×3 (05:32→21:30)
[2020-05-12] MEDS: Midodrine 10mg tab GT SCH ×3 (05:32→21:30)
[2020-05-12 05:35] LABS: ALANINE AMINOTRANSFERASE 23 U/L (12-78); ALBUMIN 1.5 G/DL (3.4-5.0); ALBUMIN/GLOBULIN RATIO 0.4 (1.0-2.7); ALKALINE PHOSPHATASE 68 U/L (46-116); ANION GAP 3 mmol/L (5-15); ASPARTATE AMINO TRANSFERASE 26 U/L (15-37); BILIRUBIN,TOTAL 0.5 MG/DL (0.2-1.0); BLOOD UREA NITROGEN 11 mg/dL (7-18); CALCIUM 8.3 MG/DL (8.5-10.1); CARBON DIOXIDE 36 MMOL/L (21-32); CHLORIDE 100 MMOL/L (98-107); CREATININE 0.9 MG/DL (0.55-1.30); SODIUM 140 MMOL/L (136-145)
[2020-05-12 05:42] LABS: WHITE BLOOD COUNT 26.9 K/UL (4.8-10.8)
[2020-05-12 05:47] LABS: POTASSIUM 2.5 MMOL/L (3.5-5.1)
[2020-05-12 05:49] LABS: PHOSPHORUS 1.9 MG/DL (2.5-4.9)
[2020-05-12] MEDS: Vancomycin 1gm/D5W 275ml IVPB SCH ×2 (09:05)
[2020-05-12] MEDS: Pantoprazole Inj IVP SCH (09:05)
[2020-05-12] MEDS: Docusate 100mg/10ml Liq GT SCH ×2 (09:05→20:29)
[2020-05-12] MEDS: Aspirin Baby 81mg GT SCH (09:06)
[2020-05-12] MEDS: levETIRAcetam 500mg/5ml Liquid GT SCH ×2 (09:06→20:29)
[2020-05-12] MEDS: Heparin 5000 units/ml inj SUBQ SCH ×2 (09:07→20:32)
[2020-05-12] MEDS: fentaNYL 2500mcg/NS 250ml 250 ML IV SCH ×2 (09:07→17:36)
--- NOTE | 2020-05-12 10:46 | Diagnostic Imaging Report ---
Indication: Shortness of breath Technique: One view of the chest Comparison: 05/11/2020 Findings: Again demonstrated are extensive right greater than left bilateral infiltrates, probably unchanged allowing for differences in degree of rotation and exposure technique. Stable satisfactory positions of endotracheal tube, right jugular central venous catheter. The heart size is upper limits of normal. Impression: Unchanged, over one day, findings as above.
--- NOTE | 2020-05-12 11:26 | General Progress Note ---
Assessment/Plan Assessment/Plan: 1. CVA. 2. Seizure disorder. 3. Functional quadriplegia. 4. Schizophrenia. 5. Dysphagia with G-tube. 6. iron def anemia 7. Constipation KUB..>>>.reviewed iv iron fu labs GTF on hold given elevated residuals enema replace K add lactulose add iv erythromycin bowel regimen Subjective ROS Limited/Unobtainable: No Allergies: Coded Allergies: DIPHENHYDRAMINE (Verified Allergy, Unknown, 02/27/20) Objective Last 24 Hour Vital Signs Date Time Temp Pulse Resp B/P (MAP) Pulse Ox O2 Delivery O2 Flow Rate FiO2 05/12/20 11:05 112 22 90 05/12/20 10:00 118 19 110/58 100 Mechanical Ventilator 90 05/12/20 10:00 19 110/58 Endotracheal Tube 90 05/12/20 09:45 121 17 100 Mechanical Ventilator 90 05/12/20 09:30 124 19 109/63 100 Mechanical Ventilator 90 05/12/20 09:15 125 19 99/57 100 Mechanical Ventilator 90 05/12/20 09:07 20 117/56 Mechanical Ventilator 15.0 90 05/12/20 09:00 122 19 87/54 100 Mechanical Ventilator 90 05/12/20 08:48 115 20 90 05/12/20 08:30 125 24 115/62 81 Mechanical Ventilator 90 05/12/20 08:00 124 05/12/20 08:00 80 05/12/20 08:00 96.6 125 22 104/56 99 Mechanical Ventilator 80 05/12/20 08:00 22 104/56 Endotracheal Tube 80 05/12/20 08:00 Endotracheal Tube 05/12/20 07:45 129 27 98 Mechanical Ventilator 80 05/12/20 07:40 114 20 80 05/12/20 07:30 123 22 103/54 95 Mechanical Ventilator 80 05/12/20 07:15 125 20 89/57 96 Mechanical Ventilator 80 05/12/20 07:05 121 20 76/50 99 Mechanical Ventilator 80 05/12/20 07:00 121 19 77/43 99 Mechanical Ventilator 80 05/12/20 07:00 28 108/81 Mechanical Ventilator 80 05/12/20 06:30 126 23 106/61 98 Mechanical Ventilator 80 05/12/20 06:30 125 26 05/12/20 06:00 25 106/61 Mechanical Ventilator 80 05/12/20 06:00 135 29 119/55 Mechanical Ventilator 80 05/12/20 05:30 121 21 80 05/12/20 05:30 131 30 115/60 92 Mechanical Ventilator 80 05/12/20 05:00 132 25 103/62 98 Mechanical Ventilator 80 05/12/20 05:00 28 115/60 Mechanical Ventilator 80 05/12/20 04:30 137 25 117/69 97 Mechanical Ventilator 80 05/12/20 04:00 98.8 129 26 162/71 94 Mechanical Ventilator 80 05/12/20 04:00 115 05/12/20 04:00 Endotracheal Tube 05/12/20 04:00 27 117/69 Mechanical Ventilator 80 05/12/20 04:00 80 05/12/20 03:34 115 26 80 05/12/20 03:30 108 22 107/69 100 Mechanical Ventilator 80 05/12/20 03:18 106 21 126/62 100 Mechanical Ventilator 80 05/12/20 03:01 108 23 86/50 100 Mechanical Ventilator 80 05/12/20 03:00 23 126/62 Mechanical Ventilator 80 05/12/20 02:30 113 25 92/57 98 Mechanical Ventilator 80 05/12/20 02:00 24 92/57 Mechanical Ventilator 80 05/12/20 02:00 123 29 108/62 96 Mechanical Ventilator 80 05/12/20 01:45 128 28 99 Mechanical Ventilator 80 05/12/20 01:30 136 28 127/59 99 Mechanical Ventilator 80 05/12/20 01:20 110 28 100 05/12/20 01:15 133 29 100 Mechanical Ventilator 80 05/12/20 01:00 29 135/73 Mechanical Ventilator 80 05/12/20 01:00 129 29 135/73 100 Mechanical Ventilator 80 05/12/20 00:30 117 26 120/64 100 Mechanical Ventilator 80 05/12/20 00:00 80 05/12/20 00:00 98.0 119 26 127/58 100 Mechanical Ventilator 80 05/12/20 00:00 118 05/12/20 00:00 27 120/64 Mechanical Ventilator 80 05/12/20 00:00 Endotracheal Tube 05/11/20 23:45 121 26 99 Mechanical Ventilator 80 05/11/20 23:30 125 26 125/58 100 Mechanical Ventilator 80 05/11/20 23:15 122 22 100 Mechanical Ventilator 80 7/28/20 23:10 132 21 100 7/28/20 23:00 26 125/58 Mechanical Ventilator 26 7/28/20 23:00 119 25 145/56 100 Mechanical Ventilator 80 7/28/20 22:45 120 26 140/70 100 Mechanical Ventilator 80 7/28/20 22:30 117 24 134/62 100 Mechanical Ventilator 80 7/28/20 22:24 107 19 116/57 100 Mechanical Ventilator 80 7/28/20 22:22 81/44 7/28/20 22:15 104 19 100 Mechanical Ventilator 80 7//20 22:00 108 24 85/44 100 Mechanical Ventilator 80 7/28/20 22:00 24 116/57 Mechanical Ventilator 80 7/28/20 21:30 101 18 93/46 100 Mechanical Ventilator 80 7//20 21:25 106 21 109/62 100 Mechanical Ventilator 80 7//20 21:11 97 20 80/39 100 Mechanical Ventilator 80 7//20 21:00 131 20 80 7//20 21:00 21 82/42 Mechanical Ventilator 80 7//20 21:00 104 22 82/42 100 Mechanical Ventilator 80 7//20 20:58 101 21 91/51 100 Mechanical Ventilator 80 7//20 20:55 101 20 78/48 100 Mechanical Ventilator 80 7//20 20:51 101 81/44 7//20 20:50 23 81/44 Mechanical Ventilator 15.0 80 7//20 20:46 103 22 81/49 100 Mechanical Ventilator 80 7//20 20:39 103 20 81/50 100 Mechanical Ventilator 80 7//20 20:31 106 20 81/48 100 Mechanical Ventilator 80 7//20 20:26 99.1 7//20 20:00 100.1 131 26 120/61 100 Mechanical Ventilator 80 7/28/20 20:00 131 7/28/20 20:00 Endotracheal Tube 7/28/20 20:00 21 120/61 Mechanical Ventilator 80 7/28/20 20:00 80 7/28/20 19:50 128 23 80 7/28/20 19:30 138 25 155/67 100 Mechanical Ventilator 80 7/28/20 19:15 132 22 100 Mechanical Ventilator 80 7/28/20 19:00 22 130/70 Mechanical Ventilator 80 7/28/20 19:00 124 22 131/61 100 Mechanical Ventilator 80 7/28/20 18:30 124 22 127/74 100 Mechanical Ventilator 80 05/11/20 18:00 110 22 97/49 100 Mechanical Ventilator 80 05/11/20 18:00 20 120/70 Mechanical Ventilator 80 05/11/20 17:30 107 19 84/48 100 Mechanical Ventilator 80 05/11/20 17:00 114 20 105/52 100 Mechanical Ventilator 80 05/11/20 17:00 20 100/70 Mechanical Ventilator 80 05/11/20 16:34 117 23 80 05/11/20 16:30 119 24 115/56 100 Mechanical Ventilator 80 05/11/20 16:30 19 120/70 Mechanical Ventilator 80 05/11/20 16:00 118 05/11/20 16:00 107 05/11/20 16:00 80 05/11/20 16:00 19 128/70 Mechanical Ventilator 80 05/11/20 16:00 Endotracheal Tube 05/11/20 16:00 98.0 112 21 114/62 100 Mechanical Ventilator 80 05/11/20 15:10 115 21 80 05/11/20 15:03 115 21 131/69 100 Mechanical Ventilator 80 05/11/20 15:02 119 24 128/80 100 Mechanical Ventilator 80 05/11/20 15:00 23 131/69 Mechanical Ventilator 80 05/11/20 14:30 115 24 120/64 100 Mechanical Ventilator 80 05/11/20 14:00 119 24 128/80 100 Mechanical Ventilator 80 05/11/20 14:00 24 120/64 Mechanical Ventilator 80 05/11/20 13:35 120 24 124/85 100 Mechanical Ventilator 80 05/11/20 13:26 120 05/11/20 13:15 120 24 80 05/11/20 13:07 124 24 140/83 100 Mechanical Ventilator 100 05/11/20 13:00 28 124/85 Mechanical Ventilator 80 05/11/20 12:34 117 30 131/69 100 Mechanical Ventilator 100 05/11/20 12:04 99.8 106 30 98/66 100 Mechanical Ventilator 100 05/11/20 12:00 26 131/69 Mechanical Ventilator 80 05/11/20 12:00 Endotracheal Tube 05/11/20 12:00 80 05/11/20 11:58 108 05/11/20 11:30 107 30 120/63 100 Mechanical Ventilator 100 Intake and Output 05/11/20 05/12/20 19:00 07:00 Intake Total 2325.100 ml 2153.500 ml Output Total 2260 ml 3325 ml Balance 65.100 ml -1171.500 ml Intake Free Water 120 ml 100 ml IV Total 1965.100 ml 1613.500 ml Tube Feeding 240 ml 380 ml Other 60 ml Output Urine Total 2260 ml 3325 ml Laboratory Tests 05/12/20 04:15: White Blood Count 26.9*H, Red Blood Count 3.15L, Hemoglobin 9.9L, Hematocrit 30.1L, Mean Corpuscular Volume 95, Mean Corpuscular Hemoglobin 31.4H, Mean Corpuscular Hemoglobin Concent 32.9, Red Cell Distribution Width 12.6, Platelet Count 414, Mean Platelet Volume 7.4, Neutrophils (%) (Auto) , Lymphocytes (%) ( Auto) , Monocytes (%) (Auto) , Eosinophils (%) (Auto) , Basophils (%) (Auto) , Differential Total Cells Counted 100, Neutrophils % (Manual) 95H, Lymphocytes % (Manual) 4L, Monocytes % (Manual) 1, Eosinophils % (Manual) 0, Basophils % ( Manual) 0, Band Neutrophils 0, Platelet Estimate Adequate, Platelet Morphology Normal, Hypochromasia 2+, Anisocytosis 1+, Sodium Level 140, Potassium Level 2.5 *L, Chloride Level 100, Carbon Dioxide Level 36H, Anion Gap 3L, Blood Urea Nitrogen 11, Creatinine 0.9, Estimat Glomerular Filtration Rate > 60, Glucose Level 144H, Uric Acid 5.6, Calcium Level 8.3L, Phosphorus Level 1.9L, Magnesium Level 1.7L, Total Bilirubin 0.5, Aspartate Amino Transf (AST/SGOT) 26, Alanine Aminotransferase (ALT/SGPT) 23, Alkaline Phosphatase 68, Total Protein 5.4L, Albumin 1.5L, Globulin 3.9, Albumin/Globulin Ratio 0.4L, Digoxin Level 0.3L 05/12/20 07:40: Arterial Blood pH 7.387, Arterial Blood Partial Pressure CO2 63.4*H, Arterial Blood Partial Pressure O2 65.4L, Arterial Blood HCO3 37.3H, Arterial Blood Oxygen Saturation 91.8L, Arterial Blood Base Excess 10.4*H, Nicolas Test Positive 05/12/20 08:55: Vancomycin Level Trough 21.6H Height (Feet): 5 Height (Inches): 8.00 Weight (Pounds): 159 General Appearance: lethargic EENT: normal ENT inspection Neck: supple Cardiovascular: normal rate Respiratory/Chest: decreased breath sounds Abdomen: non tender, soft, hypoactive bowel sounds Extremities: non-tender Clarke Liu MD May 12, 2020 11:26
[2020-05-12] MEDS: Micafungin 100 MG in NS 110 ML IVPB SCH (11:33)
--- NOTE | 2020-05-12 11:59 | Internal Med Progress Note ---
Subjective Date of Service: May 12, 2020 Physician Name Obey Cisneros Attending Physician Marky Go MD Current Medications Medications (Trade) Dose Ordered Sig/Damion Route PRN Reason Start Time Stop Time Status Last Admin Dose Admin Acetaminophen (Tylenol) 650 mg Q4H PRN GT fever 05/02/20 12:45 06/01/20 12:44 05/11/20 19:56 Aspirin (ASA) 81 mg DAILY GT 05/05/20 09:00 06/19/20 08:59 05/12/20 09:06 Chlorhexidine Gluconate (Marci-Hex 2%) 1 applic DAILY@2000 TOPIC 05/03/20 20:00 08/01/20 19:59 05/11/20 19:56 Dextrose/Sodium Chloride 1,000 ml @ 50 mls/hr Q20H IV 05/08/20 10:30 06/07/20 10:29 05/11/20 18:50 Docusate Sodium (Colace) 100 mg EVERY 12 HOURS GT 05/10/20 21:00 06/09/20 20:59 05/12/20 09:05 Erythromycin Lactobionate 50 mg/Sodium Chloride 55 ml @ 110 mls/hr [id number] ERYTHROMYCIN IVPB 05/12/20 14:00 05/19/20 13:59 Fentanyl Citrate 250 ml @ 0 mls/hr Q24H IV 05/03/20 22:03 08/01/20 22:02 05/12/20 09:07 Furosemide (Lasix) 40 mg EVERY 12 HOURS IV 05/10/20 09:00 06/09/20 08:59 05/11/20 20:51 Heparin Sodium (Porcine) (Heparin 5000 units/ml) 5,000 units EVERY 12 HOURS SUBQ 05/02/20 21:00 06/16/20 20:59 05/12/20 09:07 Iron Sucrose 100 mg/Sodium Chloride 60 ml @ 240 mls/hr BEDTIME IV 05/10/20 21:00 05/14/20 21:14 05/11/20 20:51 Lactulose (Cephulac) 10 gm THREE TIMES A DAY ORAL 05/12/20 13:00 06/11/20 12:59 Levetiracetam (Keppra) 700 mg Q12HR GT 05/02/20 21:00 06/01/20 20:59 05/12/20 09:06 Lorazepam (Ativan 2mg/ml 1ml) 2 mg Q4H PRN IV For Anxiety/seizures 05/10/20 12:45 05/17/20 12:44 05/11/20 19:56 Meropenem 1 gm/ Sodium Chloride 55 ml @ 110 mls/hr Q8HR IVPB 05/02/20 15:00 05/16/20 23:59 05/12/20 05:32 Metoclopramide HCl (Reglan) 10 mg Q6H IVP 05/08/20 10:00 06/07/20 09:59 05/12/20 09:05 Metoprolol Tartrate (Lopressor) 25 mg Q12HR GT 05/10/20 21:00 08/08/20 08:59 05/11/20 08:30 Micafungin Sodium 100 mg/Sodium Chloride 110 ml @ 110 mls/hr Q24H IVPB 05/11/20 12:00 05/18/20 11:59 05/12/20 11:33 Midodrine (Pro-Amatine) 10 mg Q8HR GT 05/04/20 22:00 08/02/20 21:59 05/12/20 05:32 Norepinephrine Bitartrate 250 ml @ 0 mls/hr Q24H IV 05/02/20 12:48 07/31/20 12:47 05/11/20 22:22 Ondansetron HCl (Zofran) 4 mg Q6H PRN IVP Nausea & Vomiting 05/02/20 12:45 06/01/20 12:44 Pantoprazole (Protonix) 40 mg DAILY IVP 05/10/20 09:00 06/09/20 08:59 05/12/20 09:05 Polyethylene Glycol (Miralax) 17 gm BEDTIME ORAL 05/11/20 21:00 06/10/20 20:59 05/11/20 20:50 Polyethylene Glycol (Miralax) 17 gm DAILYPRN PRN GT Constipation 05/02/20 12:45 06/01/20 12:44 Potassium Chloride 100 ml @ 50 mls/hr Q2HR IVPB 05/12/20 12:00 05/12/20 15:59 05/12/20 11:33 Vancomycin HCl (Vanco pharmacy to dose) 1 ea DAILY PRN MISC Per rx protocol 05/05/20 09:45 06/04/20 09:44 Vancomycin HCl 750 mg/Sodium Chloride 275 ml @ 183.333 mls/hr Q12H IVPB 05/12/20 22:00 05/17/20 21:59 Allergies: Coded Allergies: DIPHENHYDRAMINE (Verified Allergy, Unknown, 02/27/20) ROS Limited/Unobtainable: Yes Subjective 59 YO M admitted with respiratory failure. Now pneumonia. Intubated and sedated. Cover for Int Med-Dr Go. ICU. On pressors Objective Last Vital Signs Date Time Temp Pulse Resp B/P (MAP) Pulse Ox O2 Delivery O2 Flow Rate FiO2 05/12/20 11:30 103 18 93/53 100 Mechanical Ventilator 90 05/12/20 09:07 15.0 05/12/20 08:00 96.6 Laboratory Tests Test 05/12/20 04:15 05/12/20 07:40 05/12/20 08:55 White Blood Count 26.9 K/UL (4.8-10.8) *H Red Blood Count 3.15 M/UL (4.70-6.10) L Hemoglobin 9.9 G/DL (14.2-18.0) L Hematocrit 30.1 % (42.0-52.0) L Mean Corpuscular Volume 95 FL (80-99) Mean Corpuscular Hemoglobin 31.4 PG (27.0-31.0) H Mean Corpuscular Hemoglobin Concent 32.9 G/DL (32.0-36.0) Red Cell Distribution Width 12.6 % (11.6-14.8) Platelet Count 414 K/UL (150-450) Mean Platelet Volume 7.4 FL (6.5-10.1) Neutrophils (%) (Auto) % (45.0-75.0) Lymphocytes (%) (Auto) % (20.0-45.0) Monocytes (%) (Auto) % (1.0-10.0) Eosinophils (%) (Auto) % (0.0-3.0) Basophils (%) (Auto) % (0.0-2.0) Differential Total Cells Counted 100 Neutrophils % (Manual) 95 % (45-75) H Lymphocytes % (Manual) 4 % (20-45) L Monocytes % (Manual) 1 % (1-10) Eosinophils % (Manual) 0 % (0-3) Basophils % (Manual) 0 % (0-2) Band Neutrophils 0 % (0-8) Platelet Estimate Adequate Platelet Morphology Normal Hypochromasia 2+ Anisocytosis 1+ Sodium Level 140 MMOL/L (136-145) Potassium Level 2.5 MMOL/L (3.5-5.1) *L Chloride Level 100 MMOL/L (98-107) Carbon Dioxide Level 36 MMOL/L (21-32) H Anion Gap 3 mmol/L (5-15) L Blood Urea Nitrogen 11 mg/dL (7-18) Creatinine 0.9 MG/DL (0.55-1.30) Estimat Glomerular Filtration Rate > 60 mL/min (>60) Glucose Level 144 MG/DL (74-106) H Uric Acid 5.6 MG/DL (2.6-7.2) Calcium Level 8.3 MG/DL (8.5-10.1) L Phosphorus Level 1.9 MG/DL (2.5-4.9) L Magnesium Level 1.7 MG/DL (1.8-2.4) L Total Bilirubin 0.5 MG/DL (0.2-1.0) Aspartate Amino Transf (AST/SGOT) 26 U/L (15-37) Alanine Aminotransferase (ALT/SGPT) 23 U/L (12-78) Alkaline Phosphatase 68 U/L (46-116) Total Protein 5.4 G/DL (6.4-8.2) L Albumin 1.5 G/DL (3.4-5.0) L Globulin 3.9 g/dL Albumin/Globulin Ratio 0.4 (1.0-2.7) L Digoxin Level 0.3 NG/ML (0.5-2.0) L Arterial Blood pH 7.387 (7.350-7.450) Arterial Blood Partial Pressure CO2 63.4 mmHg (35.0-45.0) *H Arterial Blood Partial Pressure O2 65.4 mmHg (75.0-100.0) L Arterial Blood HCO3 37.3 mmol/L (22.0-26.0) H Arterial Blood Oxygen Saturation 91.8 % (95-100) L Arterial Blood Base Excess 10.4 (-2-2) *H Nicolas Test Positive Vancomycin Level Trough 21.6 ug/mL (5.0-12.0) H Microbiology Date/Time Source Procedure Growth Status 05/10/20 15:45 Blood Blood Culture - Preliminary NO GROWTH AFTER 24 HOURS Resulted 05/10/20 15:30 Blood Blood Culture - Preliminary NO GROWTH AFTER 24 HOURS Resulted 05/10/20 10:15 Sputum Gram Stain - Final Resulted 05/10/20 10:15 Sputum Culture - Preliminary Gram Negative Bacillus 1 Gram Negative Bacillus 2 Resulted Intake and Output 05/11/20 05/12/20 19:00 07:00 Intake Total 2325.100 ml 2153.500 ml Output Total 2260 ml 3325 ml Balance 65.100 ml -1171.500 ml Intake Free Water 120 ml 100 ml IV Total 1965.100 ml 1613.500 ml Tube Feeding 240 ml 380 ml Other 60 ml Output Urine Total 2260 ml 3325 ml Objective PHYSICAL EXAMINATION: GENERAL: The patient is a thin-appearing male, in severe respiratory distress. HEENT: Eyes, pupils equal and responsive to light and accommodation. Extraocular movements are intact. NECK: Supple. No lymphadenopathy. CHEST: Mech Vent; Decreased breath sounds bilaterally without rales. CARDIOVASCULAR: Tachycardic, regular rhythm. S1 and S2 are normal without murmurs, rubs, or gallops. ABDOMEN: Soft, nontender, and nondistended. Positive bowel sounds. No evidence of hepatosplenomegaly. Currently, no rebound or guarding noted. EXTREMITIES: Negative for clubbing, cyanosis, or edema. RECTAL/GENITAL: Not performed. NEUROLOGICAL: Unable to assess Assessment/Plan Assessment/Plan ASSESSMENT: This is a 59-year-old male. 1. Shortness of breath. 2. Hypoxia. 3. Right lower lobe pneumonia=enterobacter, pseudamonas, and staph aureus 4. Acute respiratory failure. 5. History of cerebrovascular accident. 6. Seizure disorder. 7. Functional quadriplegia. 8. Schizophrenia. 9. Dysphagia. 10. Urinary tract infection=proteus mirabilis 11. Sinus Tachycardia 12.Inceased tube feed residuals TREATMENT: 1. Respiratory failure/pneumonia. Intubated; A pulmonary consultation has been obtained with Dr. Ana Maria Hansen. The patient was febrile on admission. Antibiotics= vancomycin and mycofungin. ID=Dr Stokes 2. Seizure disorder. Continue Keppra, Depakote as above. 3. Functional quadriplegia. 4. Schizophrenia. Continue Risperdal as above. 5. Dysphagia. The patient is status post PEG. 6. Cardiology=Dr Diaz 7. GI=Obey Stahl MD May 12, 2020 11:59
--- NOTE | 2020-05-12 13:00 | Pulmonolgy Critical Care Note ---
Critical Care - Asmt/Plan Assessment/Plan: ASSESSMENT Acute hypoxemic respiratory failure requiring intubation Sepsis with septic shock Pneumonia Suspected COVID-19 -ruled out Dehydration Probably UTI COPD TOMAS- resolved Seizure disorder History of CVA Functional quadriplegia Dysphagia , feeding by G-tube E/lyte abnormalities PLAN OF CARE ICU back on pressors, vent support, pulmonary toilet sedation, ABG noted, increase rate to 20 fup with ABG and CXR severe hypoxia -> do venous Duplex check d dimer DVT prophylaxis abx as per ID BCX 05/10 NGTD SCX 05/10 GNB 2 dif species COVID x2- negative aspiration precaution GTF; KUB noted -> G-tube in place avoid nephrotoxic gentle hydration IV iron monitor H&H with goal to keep Hgb > 7 seizure precautions, continue Keppra replace K, P and Mg ( prior KCL already given will give addit 20 KPhos and 1 gm Mg) case discussed and evaluated by supervising physician Critical Care - Objective Last 24 Hour Vital Signs Date Time Temp Pulse Resp B/P (MAP) Pulse Ox O2 Delivery O2 Flow Rate FiO2 05/12/20 12:00 97.1 106 19 94/49 99 Mechanical Ventilator 90 05/12/20 12:00 90 05/12/20 12:00 Endotracheal Tube 05/12/20 11:50 96 05/12/20 11:30 103 18 93/53 100 Mechanical Ventilator 05/12/20 11:05 112 22 90 05/12/20 11:00 106 19 101/48 100 Mechanical Ventilator 05/12/20 10:30 105 18 95/54 100 Mechanical Ventilator 05/12/20 10:00 118 19 110/58 100 Mechanical Ventilator 05/12/20 10:00 19 110/58 Endotracheal Tube 90 05/12/20 09:45 121 17 100 Mechanical Ventilator 05/12/20 09:30 124 19 109/63 100 Mechanical Ventilator 05/12/20 09:15 125 19 99/57 100 Mechanical Ventilator 05/12/20 09:07 20 117/56 Mechanical Ventilator 15.0 90 05/12/20 09:00 122 19 87/54 100 Mechanical Ventilator 90 05/12/20 08:48 115 20 90 05/12/20 08:30 125 24 115/62 81 Mechanical Ventilator 05/12/20 08:00 124 05/12/20 08:00 80 7/29/20 08:00 96.6 125 22 104/56 99 Mechanical Ventilator 80 05/12/20 08:00 22 104/56 Endotracheal Tube 80 05/12/20 08:00 Endotracheal Tube 05/12/20 07:45 129 27 98 Mechanical Ventilator 80 05/12/20 07:40 114 20 80 05/12/20 07:30 123 22 103/54 95 Mechanical Ventilator 80 05/12/20 07:15 125 20 89/57 96 Mechanical Ventilator 80 05/12/20 07:05 121 20 76/50 99 Mechanical Ventilator 80 05/12/20 07:00 121 19 77/43 99 Mechanical Ventilator 80 05/12/20 07:00 28 108/81 Mechanical Ventilator 80 05/12/20 06:30 126 23 106/61 98 Mechanical Ventilator 80 05/12/20 06:30 125 26 05/12/20 06:00 25 106/61 Mechanical Ventilator 80 05/12/20 06:00 135 29 119/55 Mechanical Ventilator 80 05/12/20 05:30 121 21 80 05/12/20 05:30 131 30 115/60 92 Mechanical Ventilator 80 05/12/20 05:00 132 25 103/62 98 Mechanical Ventilator 80 05/12/20 05:00 28 115/60 Mechanical Ventilator 80 05/12/20 04:30 137 25 117/69 97 Mechanical Ventilator 80 05/12/20 04:00 98.8 129 26 162/71 94 Mechanical Ventilator 80 05/12/20 04:00 115 05/12/20 04:00 Endotracheal Tube 05/12/20 04:00 27 117/69 Mechanical Ventilator 80 05/12/20 04:00 80 05/12/20 03:34 115 26 80 05/12/20 03:30 108 22 107/69 100 Mechanical Ventilator 80 05/12/20 03:18 106 21 126/62 100 Mechanical Ventilator 80 05/12/20 03:01 108 23 86/50 100 Mechanical Ventilator 80 05/12/20 03:00 23 126/62 Mechanical Ventilator 80 05/12/20 02:30 113 25 92/57 98 Mechanical Ventilator 80 05/12/20 02:00 24 92/57 Mechanical Ventilator 80 05/12/20 02:00 123 29 108/62 96 Mechanical Ventilator 80 05/12/20 01:45 128 28 99 Mechanical Ventilator 80 05/12/20 01:30 136 28 127/59 99 Mechanical Ventilator 80 7 01:20 110 28 100 7 01:15 133 29 100 Mechanical Ventilator 80 7 01:00 29 135/73 Mechanical Ventilator 80 7 01:00 129 29 135/73 100 Mechanical Ventilator 80 7 00:30 117 26 120/64 100 Mechanical Ventilator 80 05/12/20 00:00 80 05/12/20 00:00 98.0 119 26 127/58 100 Mechanical Ventilator 80 05/12/20 00:00 118 7 00:00 27 120/64 Mechanical Ventilator 80 05/12/20 00:00 Endotracheal Tube 05/11/20 23:45 121 26 99 Mechanical Ventilator 80 7 23:30 125 26 125/58 100 Mechanical Ventilator 80 7 23:15 122 22 100 Mechanical Ventilator 80 05/11/20 23:10 132 21 100 7 23:00 26 125/58 Mechanical Ventilator 26 05/11/20 23:00 119 25 145/56 100 Mechanical Ventilator 80 7 22:45 120 26 140/70 100 Mechanical Ventilator 80 7 22:30 117 24 134/62 100 Mechanical Ventilator 80 7 22:24 107 19 116/57 100 Mechanical Ventilator 80 7 22:22 81/44 720 22:15 104 19 100 Mechanical Ventilator 80 7 22:00 108 24 85/44 100 Mechanical Ventilator 80 720 22:00 24 116/57 Mechanical Ventilator 80 7 21:30 101 18 93/46 100 Mechanical Ventilator 80 720 21:25 106 21 109/62 100 Mechanical Ventilator 80 7/20 21:11 97 20 80/39 100 Mechanical Ventilator 80 7//20 21:00 131 20 80 7//20 21:00 21 82/42 Mechanical Ventilator 80 7/20 21:00 104 22 82/42 100 Mechanical Ventilator 80 7/28/20 20:58 101 21 91/51 100 Mechanical Ventilator 80 7/28/20 20:55 101 20 78/48 100 Mechanical Ventilator 80 7//20 20:51 101 81/44 7/28/20 20:50 23 81/44 Mechanical Ventilator 15.0 80 7//20 20:46 103 22 81/49 100 Mechanical Ventilator 80 7//20 20:39 103 20 81/50 100 Mechanical Ventilator 80 7//20 20:31 106 20 81/48 100 Mechanical Ventilator 80 7//20 20:26 99.1 7/28/20 20:00 100.1 131 26 120/61 100 Mechanical Ventilator 80 7//20 20:00 131 7//20 20:00 Endotracheal Tube 720 20:00 21 120/61 Mechanical Ventilator 80 7//20 20:00 80 7//20 19:50 128 23 80 7/28/20 19:30 138 25 155/67 100 Mechanical Ventilator 80 7// 19:15 132 22 100 Mechanical Ventilator 80 7//20 19:00 22 130/70 Mechanical Ventilator 80 7//20 19:00 124 22 131/61 100 Mechanical Ventilator 80 7//20 18:30 124 22 127/74 100 Mechanical Ventilator 80 7//20 18:00 110 22 97/49 100 Mechanical Ventilator 80 7/20 18:00 20 120/70 Mechanical Ventilator 80 7/20 17:30 107 19 84/48 100 Mechanical Ventilator 80 7//20 17:00 114 20 105/52 100 Mechanical Ventilator 80 7/20 17:00 20 100/70 Mechanical Ventilator 80 7/20 16:34 117 23 80 7//20 16:30 119 24 115/56 100 Mechanical Ventilator 80 7/20 16:30 19 120/70 Mechanical Ventilator 80 720 16:00 118 7//20 16:00 107 7//20 16:00 80 7//20 16:00 19 128/70 Mechanical Ventilator 80 7/20 16:00 Endotracheal Tube 7//20 16:00 98.0 112 21 114/62 100 Mechanical Ventilator 80 7//20 15:10 115 21 80 7//20 15:03 115 21 131/69 100 Mechanical Ventilator 80 7/28/20 15:02 119 24 128/80 100 Mechanical Ventilator 80 7/28/20 15:00 23 131/69 Mechanical Ventilator 80 7//20 14:30 115 24 120/64 100 Mechanical Ventilator 80 7//20 14:00 119 24 128/80 100 Mechanical Ventilator 80 05/11/20 14:00 24 120/64 Mechanical Ventilator 80 05/11/20 13:35 120 24 124/85 100 Mechanical Ventilator 80 05/11/20 13:26 120 05/11/20 13:15 120 24 80 05/11/20 13:07 124 24 140/83 100 Mechanical Ventilator 100 05/11/20 13:00 28 124/85 Mechanical Ventilator 80 Objective: Status: sedated Condition: critical, Vent AC 600-18-90% HEENT: atraumatic, OP with ET in place intact Lungs: scattered rhonchi Heart: tachycardic, BP unstable on Levophed Abdomen: soft, non-tender Extremities: no C/C/E Micro: Microbiology Date/Time Source Procedure Growth Status 05/10/20 15:45 Blood Blood Culture - Preliminary NO GROWTH AFTER 24 HOURS Resulted 05/10/20 15:30 Blood Blood Culture - Preliminary NO GROWTH AFTER 24 HOURS Resulted 05/10/20 10:15 Sputum Gram Stain - Final Resulted 05/10/20 10:15 Sputum Culture - Preliminary Gram Negative Bacillus 1 Gram Negative Bacillus 2 Resulted Critical Care - Subjective ROS Limited/Unobtainable: Yes Interval Events: remains intubated leukocytosis with trend up, afebrile FiO2 up to 90% now on Levophed CXR this am without much changes ABG with hypercapnia low K, P and Mg Condition: critical FI02: 90 Vent Support Breath Rate: 18 Vent Support Mode: AC Vent Tidal Volume: 600 Sputum Amount: Moderate PEEP: 0.0 PIP: 24 Fluids: D5NS at 50 Drips: Fentanyl gtt 300 mcg/ht, Levophed 4 mc/min Tube Feeding Amount: 10 I&O: Intake and Output 05/11/20 05/12/20 18:59 06:59 Intake Total 2336.770 ml 2146.830 ml Output Total 2260 ml 3325 ml Balance 76.770 ml -1178.170 ml Intake Free Water 120 ml 100 ml IV Total 2016.770 ml 1566.830 ml Tube Feeding 200 ml 420 ml Other 60 ml Output Urine Total 2260 ml 3325 ml CXR: CXR 05/12 -extensive right greater than left bilateral infiltrates, probably unchanged allowing for differences in degree of rotation and exposure technique. Stable satisfactory positions of endotracheal tube, right jugular central venous catheter. The heart size is upper limits of normal. ET-Tube: 7.5 ET Position: 24 Erika Kaufman NP May 12, 2020 13:00
[2020-05-12] MEDS: Lactulose 10gm/15ml UDC ORAL SCH ×2 (13:26→17:34)
[2020-05-12] MEDS ORDERED: Potassium Phosphate 20 MM in NS 275 ML IV ONE (14:00)
[2020-05-12] MEDS: Erythromycin Inj 50 MG in NS 55 ML IVPB SCH ×2 (14:24→19:56)
[2020-05-12] MEDS: Dextrose 10%/0.9% SOD CHL 1,000 ML IV SCH (14:27)
--- NOTE | 2020-05-12 15:25 | Infectious Diseases Prog Note ---
Assessment/Plan Assessment: Septic Shock- off pressors now Pneumonia- COVID 19 neg x3(2 on same day) Acute hypoxic resp failure- s/p intubation 05/02 -05/12 CXR: Again demonstrated are extensive right greater than left bilateral infiltrates, probably unchanged allowing for differences in degree of rotation and exposure technique. -05/08 CXRL Increasing airspace opacities, worse in the right midlung. Increase in small right pleural effusion and probably small left pleural effusion. -05/07 Rapid COVID PCR neg -05/05 Bcx NTD -05/04 CXR: Dense consolidation of the right mid and lower lung, right pleural effusion are unchanged. Left lung and pleural space remain clear. -05/02 Sp cx PsA (pham S), E. aerogenes (R Ancef; otherwise S), MRSA -05/02 CXR: There is a moderately consolidating infiltrate in the right lower lobe consistent with pneumonia. Bcx neg x4 rapid COVID neg, COVI PCR neg - previously neg: -02/26 SARS-COV2 pCR neg; 02/28 SARS-COV 2 pcr neg Probable UTI -u/a wbc 10-15, nit neg, leul +2 ; ucx <10k ESBL. P. mirabilis (S Zosyn, meropenem) FEver (up to 105.3); improving (on cooling blanket) leukocytosis; increasing -05/10 u/a neg Bcx NGD sp cx GNR #1, #2 TOMAS; SP Recent Sepsis 2ry to ESBL K.pna bacteremia and Pneumonia 02/2020 -Bcx 3/ ESBL K.pna (S Levo, Meropenem, ZOsyn); 03/01 Bcx Neg -sp cx ESBL K.pna -02/27 sp removal PICC Line; cath tip cx Neg muscle weakness and atrophy (not characterized) psychiatric disorder dysphagia s/p GT [place] resident ( [facility]) Dementia seizure disorder Plan: -COntinue Meropenem #08/28 for UTI and PNA and IV Vancomycin #08/28 for MRSA PNA -add empiric Micafungin #2 given rise in wbc -05/05 SP Amikacin #4 -05/02 SP CEfepime x1 , Azithromycin x1 -f/u cx -Monitor CBC/CMP, temperatures -COVID19 neg x2; continue isolation until afebrile > 24 hrs -ICU/ETT/PEG care -f/u repeat cultures -Cdiff if diarrhea Thank you for consulting [facility]. Will continue to follow along with you. Joy troncoso RN. Subjective Allergies: Coded Allergies: DIPHENHYDRAMINE (Verified Allergy, Unknown, 02/27/20) Tm 100.1 worsenign hypoxica on ABG; FIo2 increased to 100% wbc increasing now off pressors Objective Last 24 Hour Vital Signs Date Time Temp Pulse Resp B/P (MAP) Pulse Ox O2 Delivery O2 Flow Rate FiO2 05/12/20 14:45 133 23 91 Mechanical Ventilator 100 05/12/20 14:30 127 22 136/53 93 Mechanical Ventilator 100 05/12/20 14:15 130 21 105/65 95 Mechanical Ventilator 100 05/12/20 14:03 128 29 100 05/12/20 14:00 23 151/53 Endotracheal Tube 100 05/12/20 14:00 132 23 151/53 94 Mechanical Ventilator 100 05/12/20 13:30 128 25 130/67 96 Mechanical Ventilator 90 05/12/20 13:25 107 22 90 05/12/20 13:00 19 110/44 Endotracheal Tube 90 05/12/20 13:00 115 19 110/44 95 Mechanical Ventilator 90 05/12/20 12:00 97.1 106 19 94/49 99 Mechanical Ventilator 05/12/20 12:00 19 94/49 Endotracheal Tube 90 05/12/20 12:00 90 05/12/20 12:00 Endotracheal Tube 05/12/20 11:50 96 05/12/20 11:30 103 18 93/53 100 Mechanical Ventilator 05/12/20 11:05 112 22 90 05/12/20 11:00 19 101/48 Endotracheal Tube 90 05/12/20 11:00 106 19 101/48 100 Mechanical Ventilator 90 05/12/20 10:30 105 18 95/54 100 Mechanical Ventilator 05/12/20 10:00 118 19 110/58 100 Mechanical Ventilator 05/12/20 10:00 19 110/58 Endotracheal Tube 90 05/12/20 09:45 121 17 100 Mechanical Ventilator 05/12/20 09:30 124 19 109/63 100 Mechanical Ventilator 90 05/12/20 09:15 125 19 99/57 100 Mechanical Ventilator 90 05/12/20 09:07 20 117/56 Mechanical Ventilator 15.0 90 05/12/20 09:00 122 19 87/54 100 Mechanical Ventilator 90 05/12/20 08:48 115 20 90 05/12/20 08:30 125 24 115/62 81 Mechanical Ventilator 90 05/12/20 08:00 124 05/12/20 08:00 80 05/12/20 08:00 96.6 125 22 104/56 99 Mechanical Ventilator 80 05/12/20 08:00 22 104/56 Endotracheal Tube 80 05/12/20 08:00 Endotracheal Tube 05/12/20 07:45 129 27 98 Mechanical Ventilator 80 05/12/20 07:40 114 20 80 05/12/20 07:30 123 22 103/54 95 Mechanical Ventilator 80 05/12/20 07:15 125 20 89/57 96 Mechanical Ventilator 80 05/12/20 07:05 121 20 76/50 99 Mechanical Ventilator 80 05/12/20 07:00 121 19 77/43 99 Mechanical Ventilator 80 05/12/20 07:00 28 108/81 Mechanical Ventilator 80 05/12/20 06:30 126 23 106/61 98 Mechanical Ventilator 80 05/12/20 06:30 125 26 05/12/20 06:00 25 106/61 Mechanical Ventilator 80 05/12/20 06:00 135 29 119/55 Mechanical Ventilator 80 05/12/20 05:30 121 21 80 05/12/20 05:30 131 30 115/60 92 Mechanical Ventilator 80 05/12/20 05:00 132 25 103/62 98 Mechanical Ventilator 80 05/12/20 05:00 28 115/60 Mechanical Ventilator 80 05/12/20 04:30 137 25 117/69 97 Mechanical Ventilator 80 05/12/20 04:00 98.8 129 26 162/71 94 Mechanical Ventilator 80 05/12/20 04:00 115 05/12/20 04:00 Endotracheal Tube 05/12/20 04:00 27 117/69 Mechanical Ventilator 80 05/12/20 04:00 80 05/12/20 03:34 115 26 80 05/12/20 03:30 108 22 107/69 100 Mechanical Ventilator 80 05/12/20 03:18 106 21 126/62 100 Mechanical Ventilator 80 05/12/20 03:01 108 23 86/50 100 Mechanical Ventilator 80 05/12/20 03:00 23 126/62 Mechanical Ventilator 80 05/12/20 02:30 113 25 92/57 98 Mechanical Ventilator 80 05/12/20 02:00 24 92/57 Mechanical Ventilator 80 05/12/20 02:00 123 29 108/62 96 Mechanical Ventilator 80 05/12/20 01:45 128 28 99 Mechanical Ventilator 80 05/12/20 01:30 136 28 127/59 99 Mechanical Ventilator 80 05/12/20 01:20 110 28 100 05/12/20 01:15 133 29 100 Mechanical Ventilator 80 05/12/20 01:00 29 135/73 Mechanical Ventilator 80 05/12/20 01:00 129 29 135/73 100 Mechanical Ventilator 80 05/12/20 00:30 117 26 120/64 100 Mechanical Ventilator 80 05/12/20 00:00 80 05/12/20 00:00 98.0 119 26 127/58 100 Mechanical Ventilator 80 05/12/20 00:00 118 05/12/20 00:00 27 120/64 Mechanical Ventilator 80 05/12/20 00:00 Endotracheal Tube 05/11/20 23:45 121 26 99 Mechanical Ventilator 80 05/11/20 23:30 125 26 125/58 100 Mechanical Ventilator 80 05/11/20 23:15 122 22 100 Mechanical Ventilator 80 05/11/20 23:10 132 21 100 05/11/20 23:00 26 125/58 Mechanical Ventilator 26 05/11/20 23:00 119 25 145/56 100 Mechanical Ventilator 80 05/11/20 22:45 120 26 140/70 100 Mechanical Ventilator 80 05/11/20 22:30 117 24 134/62 100 Mechanical Ventilator 80 05/11/20 22:24 107 19 116/57 100 Mechanical Ventilator 80 05/11/20 22:22 81/44 7 22:15 104 19 100 Mechanical Ventilator 80 7 22:00 108 24 85/44 100 Mechanical Ventilator 80 7 22:00 24 116/57 Mechanical Ventilator 80 7 21:30 101 18 93/46 100 Mechanical Ventilator 80 7 21:25 106 21 109/62 100 Mechanical Ventilator 80 7 21:11 97 20 80/39 100 Mechanical Ventilator 80 7 21:00 131 20 80 7 21:00 21 82/42 Mechanical Ventilator 80 7 21:00 104 22 82/42 100 Mechanical Ventilator 80 7/28/20 20:58 101 21 91/51 100 Mechanical Ventilator 80 7//20 20:55 101 20 78/48 100 Mechanical Ventilator 80 7//20 20:51 101 81/44 7/20 20:50 23 81/44 Mechanical Ventilator 15.0 80 7//20 20:46 103 22 81/49 100 Mechanical Ventilator 80 7//20 20:39 103 20 81/50 100 Mechanical Ventilator 80 720 20:31 106 20 81/48 100 Mechanical Ventilator 80 7/20 20:26 99.1 7//20 20:00 100.1 131 26 120/61 100 Mechanical Ventilator 80 7 20:00 131 7 20:00 Endotracheal Tube 05/11/20 20:00 21 120/61 Mechanical Ventilator 80 720 20:00 80 7 19:50 128 23 80 7 19:30 138 25 155/67 100 Mechanical Ventilator 80 7 19:15 132 22 100 Mechanical Ventilator 80 7 19:00 22 130/70 Mechanical Ventilator 80 7 19:00 124 22 131/61 100 Mechanical Ventilator 80 7 18:30 124 22 127/74 100 Mechanical Ventilator 80 7 18:00 110 22 97/49 100 Mechanical Ventilator 80 7 18:00 20 120/70 Mechanical Ventilator 80 7 17:30 107 19 84/48 100 Mechanical Ventilator 80 7 17:00 114 20 105/52 100 Mechanical Ventilator 80 7 17:00 20 100/70 Mechanical Ventilator 80 7 16:34 117 23 80 7 16:30 119 24 115/56 100 Mechanical Ventilator 80 7 16:30 19 120/70 Mechanical Ventilator 80 7 16:00 118 7/20 16:00 107 7/ 16:00 80 7 16:00 19 128/70 Mechanical Ventilator 80 720 16:00 Endotracheal Tube 7 16:00 98.0 112 21 114/62 100 Mechanical Ventilator 80 7 15:10 115 21 80 Height (Feet): 5 Height (Inches): 8.00 Weight (Pounds): 159 HEENT: Eyes, pupils equal and responsive to light and accommodation. Extraocular movements are intact. NECK: Supple. No lymphadenopathy. CHEST: Mech Vent; Decreased breath sounds bilaterally without rales. CARDIOVASCULAR: Tachycardic, regular rhythm. S1 and S2 are normal without murmurs, rubs, or gallops. ABDOMEN: Soft, nontender, and nondistended. Positive bowel sounds. No evidence of hepatosplenomegaly. Currently, no rebound or guarding noted. EXTREMITIES: Negative for clubbing, cyanosis, or edema. Microbiology Date/Time Source Procedure Growth Status 05/10/20 15:45 Blood Blood Culture - Preliminary NO GROWTH AFTER 24 HOURS Resulted 05/10/20 15:30 Blood Blood Culture - Preliminary NO GROWTH AFTER 24 HOURS Resulted 05/10/20 10:15 Sputum Gram Stain - Final Resulted 05/10/20 10:15 Sputum Culture - Preliminary Gram Negative Bacillus 1 Gram Negative Bacillus 2 Resulted Laboratory Tests Test 05/12/20 04:15 05/12/20 07:40 05/12/20 08:55 05/12/20 13:40 White Blood Count 26.9 K/UL (4.8-10.8) *H Red Blood Count 3.15 M/UL (4.70-6.10) L Hemoglobin 9.9 G/DL (14.2-18.0) L Hematocrit 30.1 % (42.0-52.0) L Mean Corpuscular Volume 95 FL (80-99) Mean Corpuscular Hemoglobin 31.4 PG (27.0-31.0) H Mean Corpuscular Hemoglobin Concent 32.9 G/DL (32.0-36.0) Red Cell Distribution Width 12.6 % (11.6-14.8) Platelet Count 414 K/UL (150-450) Mean Platelet Volume 7.4 FL (6.5-10.1) Neutrophils (%) (Auto) % (45.0-75.0) Lymphocytes (%) (Auto) % (20.0-45.0) Monocytes (%) (Auto) % (1.0-10.0) Eosinophils (%) (Auto) % (0.0-3.0) Basophils (%) (Auto) % (0.0-2.0) Differential Total Cells Counted 100 Neutrophils % (Manual) 95 % (45-75) H Lymphocytes % (Manual) 4 % (20-45) L Monocytes % (Manual) 1 % (1-10) Eosinophils % (Manual) 0 % (0-3) Basophils % (Manual) 0 % (0-2) Band Neutrophils 0 % (0-8) Platelet Estimate Adequate Platelet Morphology Normal Hypochromasia 2+ Anisocytosis 1+ Sodium Level 140 MMOL/L (136-145) Potassium Level 2.5 MMOL/L (3.5-5.1) *L Chloride Level 100 MMOL/L (98-107) Carbon Dioxide Level 36 MMOL/L (21-32) H Anion Gap 3 mmol/L (5-15) L Blood Urea Nitrogen 11 mg/dL (7-18) Creatinine 0.9 MG/DL (0.55-1.30) Estimat Glomerular Filtration Rate > 60 mL/min (>60) Glucose Level 144 MG/DL (74-106) H Uric Acid 5.6 MG/DL (2.6-7.2) Calcium Level 8.3 MG/DL (8.5-10.1) L Phosphorus Level 1.9 MG/DL (2.5-4.9) L Magnesium Level 1.7 MG/DL (1.8-2.4) L Total Bilirubin 0.5 MG/DL (0.2-1.0) Aspartate Amino Transf (AST/SGOT) 26 U/L (15-37) Alanine Aminotransferase (ALT/SGPT) 23 U/L (12-78) Alkaline Phosphatase 68 U/L (46-116) Total Protein 5.4 G/DL (6.4-8.2) L Albumin 1.5 G/DL (3.4-5.0) L Globulin 3.9 g/dL Albumin/Globulin Ratio 0.4 (1.0-2.7) L Digoxin Level 0.3 NG/ML (0.5-2.0) L Arterial Blood pH 7.387 (7.350-7.450) Arterial Blood Partial Pressure CO2 63.4 mmHg (35.0-45.0) *H Arterial Blood Partial Pressure O2 65.4 mmHg (75.0-100.0) L Arterial Blood HCO3 37.3 mmol/L (22.0-26.0) H Arterial Blood Oxygen Saturation 91.8 % (95-100) L Arterial Blood Base Excess 10.4 (-2-2) *H Nicolas Test Positive Vancomycin Level Trough 21.6 ug/mL (5.0-12.0) H D-Dimer 4.83 mg/L FEU (0.00-0.49) H Current Medications Medications (Trade) Dose Ordered Sig/Damion Route PRN Reason Start Time Stop Time Status Last Admin Dose Admin Acetaminophen (Tylenol) 650 mg Q4H PRN GT fever 05/02/20 12:45 06/01/20 12:44 05/11/20 19:56 Aspirin (ASA) 81 mg DAILY GT 05/05/20 09:00 06/19/20 08:59 05/12/20 09:06 Chlorhexidine Gluconate (Marci-Hex 2%) 1 applic DAILY@2000 TOPIC 05/03/20 20:00 08/01/20 19:59 05/11/20 19:56 Dextrose/Sodium Chloride 1,000 ml @ 50 mls/hr Q20H IV 05/08/20 10:30 06/07/20 10:29 05/12/20 14:27 Docusate Sodium (Colace) 100 mg EVERY 12 HOURS GT 05/10/20 21:00 06/09/20 20:59 05/12/20 09:05 Erythromycin Lactobionate 50 mg/Sodium Chloride 55 ml @ 110 mls/hr [id number] ERYTHROMYCIN IVPB 05/12/20 14:00 05/19/20 13:59 05/12/20 14:24 Fentanyl Citrate 250 ml @ 0 mls/hr Q24H IV 05/03/20 22:03 08/01/20 22:02 05/12/20 09:07 Furosemide (Lasix) 40 mg EVERY 12 HOURS IV 05/10/20 09:00 06/09/20 08:59 05/11/20 20:51 Heparin Sodium (Porcine) (Heparin 5000 units/ml) 5,000 units EVERY 12 HOURS SUBQ 05/02/20 21:00 06/16/20 20:59 05/12/20 09:07 Iron Sucrose 100 mg/Sodium Chloride 60 ml @ 240 mls/hr BEDTIME IV 05/10/20 21:00 05/14/20 21:14 05/11/20 20:51 Lactulose (Cephulac) 10 gm THREE TIMES A DAY ORAL 05/12/20 13:00 06/11/20 12:59 05/12/20 13:26 Levetiracetam (Keppra) 700 mg Q12HR GT 05/02/20 21:00 06/01/20 20:59 05/12/20 09:06 Lorazepam (Ativan 2mg/ml 1ml) 2 mg Q4H PRN IV For Anxiety/seizures 05/10/20 12:45 05/17/20 12:44 05/11/20 19:56 Meropenem 1 gm/ Sodium Chloride 55 ml @ 110 mls/hr Q8HR IVPB 05/02/20 15:00 05/16/20 23:59 05/12/20 14:26 Metoclopramide HCl (Reglan) 10 mg Q6H IVP 05/08/20 10:00 06/07/20 09:59 05/12/20 09:05 Metoprolol Tartrate (Lopressor) 25 mg Q12HR GT 05/10/20 21:00 08/08/20 08:59 05/11/20 08:30 Micafungin Sodium 100 mg/Sodium Chloride 110 ml @ 110 mls/hr Q24H IVPB 05/11/20 12:00 05/18/20 11:59 05/12/20 11:33 Midodrine (Pro-Amatine) 10 mg Q8HR GT 05/04/20 22:00 08/02/20 21:59 05/12/20 14:24 Norepinephrine Bitartrate 250 ml @ 0 mls/hr Q24H IV 05/02/20 12:48 07/31/20 12:47 05/11/20 22:22 Ondansetron HCl (Zofran) 4 mg Q6H PRN IVP Nausea & Vomiting 05/02/20 12:45 06/01/20 12:44 Pantoprazole (Protonix) 40 mg DAILY IVP 05/10/20 09:00 06/09/20 08:59 05/12/20 09:05 Polyethylene Glycol (Miralax) 17 gm BEDTIME ORAL 05/11/20 21:00 06/10/20 20:59 05/11/20 20:50 Polyethylene Glycol (Miralax) 17 gm DAILYPRN PRN GT Constipation 05/02/20 12:45 8/18/20 12:44 Potassium Phosphate 20 mm/ Sodium Chloride 281.6667 ml @ 46.94 mls/hr ONCE ONCE IV 05/12/20 14:00 05/12/20 20:00 05/12/20 14:25 Potassium Chloride 100 ml @ 50 mls/hr Q2HR IVPB 05/12/20 12:00 05/12/20 15:59 05/12/20 14:25 Vancomycin HCl (Vanco pharmacy to dose) 1 ea DAILY PRN MISC Per rx protocol 05/05/20 09:45 06/04/20 09:44 Vancomycin HCl 750 mg/Sodium Chloride 275 ml @ 183.333 mls/hr Q12H IVPB 05/12/20 22:00 05/17/20 21:59 Charlene Stokes M.D. May 12, 2020 15:25
--- NOTE | 2020-05-12 15:34 | Nephrology Progress Note ---
Assessment/Plan Problem List: (1) Electrolyte imbalance (2) Dehydration (3) Acute respiratory failure (4) Seizure disorder Assessment Severe electrolyte abnormalities Low magnesium, low phosphorus, low potassium, Other active conditions: (1) Acute respiratory failure (2) Sepsis (3) Nosocomial pneumonia (4) Seizure disorder (5) Dehydration (6) COPD (chronic obstructive pulmonary disease) (7) longterm resident (8) History of CVA (cerebrovascular accident) Plan May 12: Labs reviewed. Magnesium, potassium, phosphorus supplement given. IV digoxin repeated. IV fluids stopped. May 11: Renal parameters stable. Continue digoxin for tachycardia. May 10: Tachycardia improved. Renal parameters stable. Continue per consultants. May 09: Patient remains tachycardic. 2D echocardiogram done results pending. 1 dose of IV digoxin ordered. Discussed with ASAD Dixon. Remains stable from renal standpoint of view. May 08: Magnesium sulfate IV ordered for hypomagnesemia. Patient has metabolic acidosis. IV sodium bicarb given. Feeding on hold due to residual. IV Reglan ordered. IV fluid changed to D10 normal saline. 2D echocardiogram ordered for tachycardia. Chest x-ray suggests worsening pulmonary infiltrate. Discussed with ASAD Stevens Remains stable from renal standpoint of view Discussed with RN mag , phosphorus and potassium supplement as needed Monitor electrolytes Continue per consultants Subjective ROS Limited/Unobtainable: Yes Objective Objective Last 24 Hour Vital Signs Date Time Temp Pulse Resp B/P (MAP) Pulse Ox O2 Delivery O2 Flow Rate FiO2 05/12/20 14:45 133 23 91 Mechanical Ventilator 100 05/12/20 14:30 127 22 136/53 93 Mechanical Ventilator 100 05/12/20 14:15 130 21 105/65 95 Mechanical Ventilator 100 05/12/20 14:03 128 29 100 05/12/20 14:00 23 151/53 Endotracheal Tube 100 05/12/20 14:00 132 23 151/53 94 Mechanical Ventilator 100 05/12/20 13:30 128 25 130/67 96 Mechanical Ventilator 90 05/12/20 13:25 107 22 90 05/12/20 13:00 19 110/44 Endotracheal Tube 90 05/12/20 13:00 115 19 110/44 95 Mechanical Ventilator 90 05/12/20 12:00 97.1 106 19 94/49 99 Mechanical Ventilator 90 05/12/20 12:00 19 94/49 Endotracheal Tube 90 7/29/20 12:00 90 05/12/20 12:00 Endotracheal Tube 05/12/20 11:50 96 05/12/20 11:30 103 18 93/53 100 Mechanical Ventilator 90 05/12/20 11:05 112 22 90 05/12/20 11:00 19 101/48 Endotracheal Tube 90 05/12/20 11:00 106 19 101/48 100 Mechanical Ventilator 90 05/12/20 10:30 105 18 95/54 100 Mechanical Ventilator 90 05/12/20 10:00 118 19 110/58 100 Mechanical Ventilator 90 05/12/20 10:00 19 110/58 Endotracheal Tube 90 05/12/20 09:45 121 17 100 Mechanical Ventilator 90 05/12/20 09:30 124 19 109/63 100 Mechanical Ventilator 90 05/12/20 09:15 125 19 99/57 100 Mechanical Ventilator 90 05/12/20 09:07 20 117/56 Mechanical Ventilator 15.0 90 05/12/20 09:00 122 19 87/54 100 Mechanical Ventilator 90 05/12/20 08:48 115 20 90 05/12/20 08:30 125 24 115/62 81 Mechanical Ventilator 90 05/12/20 08:00 124 05/12/20 08:00 80 05/12/20 08:00 96.6 125 22 104/56 99 Mechanical Ventilator 80 05/12/20 08:00 22 104/56 Endotracheal Tube 80 05/12/20 08:00 Endotracheal Tube 05/12/20 07:45 129 27 98 Mechanical Ventilator 80 05/12/20 07:40 114 20 80 05/12/20 07:30 123 22 103/54 95 Mechanical Ventilator 80 05/12/20 07:15 125 20 89/57 96 Mechanical Ventilator 80 05/12/20 07:05 121 20 76/50 99 Mechanical Ventilator 80 05/12/20 07:00 121 19 77/43 99 Mechanical Ventilator 80 05/12/20 07:00 28 108/81 Mechanical Ventilator 80 05/12/20 06:30 126 23 106/61 98 Mechanical Ventilator 80 05/12/20 06:30 125 26 05/12/20 06:00 25 106/61 Mechanical Ventilator 80 05/12/20 06:00 135 29 119/55 Mechanical Ventilator 80 05/12/20 05:30 121 21 80 05/12/20 05:30 131 30 115/60 92 Mechanical Ventilator 80 05/12/20 05:00 132 25 103/62 98 Mechanical Ventilator 80 05/12/20 05:00 28 115/60 Mechanical Ventilator 80 05/12/20 04:30 137 25 117/69 97 Mechanical Ventilator 80 05/12/20 04:00 98.8 129 26 162/71 94 Mechanical Ventilator 80 05/12/20 04:00 115 05/12/20 04:00 Endotracheal Tube 05/12/20 04:00 27 117/69 Mechanical Ventilator 80 05/12/20 04:00 80 05/12/20 03:34 115 26 80 05/12/20 03:30 108 22 107/69 100 Mechanical Ventilator 80 05/12/20 03:18 106 21 126/62 100 Mechanical Ventilator 80 05/12/20 03:01 108 23 86/50 100 Mechanical Ventilator 80 05/12/20 03:00 23 126/62 Mechanical Ventilator 80 05/12/20 02:30 113 25 92/57 98 Mechanical Ventilator 80 05/12/20 02:00 24 92/57 Mechanical Ventilator 80 05/12/20 02:00 123 29 108/62 96 Mechanical Ventilator 80 05/12/20 01:45 128 28 99 Mechanical Ventilator 80 05/12/20 01:30 136 28 127/59 99 Mechanical Ventilator 80 05/12/20 01:20 110 28 100 05/12/20 01:15 133 29 100 Mechanical Ventilator 80 05/12/20 01:00 29 135/73 Mechanical Ventilator 80 05/12/20 01:00 129 29 135/73 100 Mechanical Ventilator 80 05/12/20 00:30 117 26 120/64 100 Mechanical Ventilator 80 05/12/20 00:00 80 05/12/20 00:00 98.0 119 26 127/58 100 Mechanical Ventilator 80 05/12/20 00:00 118 05/12/20 00:00 27 120/64 Mechanical Ventilator 80 05/12/20 00:00 Endotracheal Tube 05/11/20 23:45 121 26 99 Mechanical Ventilator 80 05/11/20 23:30 125 26 125/58 100 Mechanical Ventilator 80 05/11/20 23:15 122 22 100 Mechanical Ventilator 80 05/11/20 23:10 132 21 100 05/11/20 23:00 26 125/58 Mechanical Ventilator 26 05/11/20 23:00 119 25 145/56 100 Mechanical Ventilator 80 05/11/20 22:45 120 26 140/70 100 Mechanical Ventilator 80 7/28/20 22:30 117 24 134/62 100 Mechanical Ventilator 80 7/28/20 22:24 107 19 116/57 100 Mechanical Ventilator 80 7/28/20 22:22 81/44 7/28/20 22:15 104 19 100 Mechanical Ventilator 80 7/28/20 22:00 108 24 85/44 100 Mechanical Ventilator 80 7/28/20 22:00 24 116/57 Mechanical Ventilator 80 7/28/20 21:30 101 18 93/46 100 Mechanical Ventilator 80 7/28/20 21:25 106 21 109/62 100 Mechanical Ventilator 80 7/28/20 21:11 97 20 80/39 100 Mechanical Ventilator 80 7/28/20 21:00 131 20 80 7/28/20 21:00 21 82/42 Mechanical Ventilator 80 7//20 21:00 104 22 82/42 100 Mechanical Ventilator 80 7/28/20 20:58 101 21 91/51 100 Mechanical Ventilator 80 7//20 20:55 101 20 78/48 100 Mechanical Ventilator 80 7//20 20:51 101 81/44 7/28/20 20:50 23 81/44 Mechanical Ventilator 15.0 80 7//20 20:46 103 22 81/49 100 Mechanical Ventilator 80 7//20 20:39 103 20 81/50 100 Mechanical Ventilator 80 7//20 20:31 106 20 81/48 100 Mechanical Ventilator 80 7//20 20:26 99.1 7//20 20:00 100.1 131 26 120/61 100 Mechanical Ventilator 80 7//20 20:00 131 7/28/20 20:00 Endotracheal Tube 720 20:00 21 120/61 Mechanical Ventilator 80 7/28/20 20:00 80 7/28/20 19:50 128 23 80 7/28/20 19:30 138 25 155/67 100 Mechanical Ventilator 80 7//20 19:15 132 22 100 Mechanical Ventilator 80 7/28/20 19:00 22 130/70 Mechanical Ventilator 80 7/28/20 19:00 124 22 131/61 100 Mechanical Ventilator 80 7/28/20 18:30 124 22 127/74 100 Mechanical Ventilator 80 7//20 18:00 110 22 97/49 100 Mechanical Ventilator 80 7//20 18:00 20 120/70 Mechanical Ventilator 80 7/28/20 17:30 107 19 84/48 100 Mechanical Ventilator 80 05/11/20 17:00 114 20 105/52 100 Mechanical Ventilator 80 05/11/20 17:00 20 100/70 Mechanical Ventilator 80 05/11/20 16:34 117 23 80 05/11/20 16:30 119 24 115/56 100 Mechanical Ventilator 80 05/11/20 16:30 19 120/70 Mechanical Ventilator 80 05/11/20 16:00 118 05/11/20 16:00 107 05/11/20 16:00 80 05/11/20 16:00 19 128/70 Mechanical Ventilator 80 05/11/20 16:00 Endotracheal Tube 05/11/20 16:00 98.0 112 21 114/62 100 Mechanical Ventilator 80 Intake and Output 05/11/20 05/12/20 19:00 07:00 Intake Total 2325.100 ml 2153.500 ml Output Total 2260 ml 3325 ml Balance 65.100 ml -1171.500 ml Intake Free Water 120 ml 100 ml IV Total 1965.100 ml 1613.500 ml Tube Feeding 240 ml 380 ml Other 60 ml Output Urine Total 2260 ml 3325 ml Laboratory Tests 05/12/20 04:15: White Blood Count 26.9*H, Red Blood Count 3.15L, Hemoglobin 9.9L, Hematocrit 30.1L, Mean Corpuscular Volume 95, Mean Corpuscular Hemoglobin 31.4H, Mean Corpuscular Hemoglobin Concent 32.9, Red Cell Distribution Width 12.6, Platelet Count 414, Mean Platelet Volume 7.4, Neutrophils (%) (Auto) , Lymphocytes (%) ( Auto) , Monocytes (%) (Auto) , Eosinophils (%) (Auto) , Basophils (%) (Auto) , Differential Total Cells Counted 100, Neutrophils % (Manual) 95H, Lymphocytes % (Manual) 4L, Monocytes % (Manual) 1, Eosinophils % (Manual) 0, Basophils % ( Manual) 0, Band Neutrophils 0, Platelet Estimate Adequate, Platelet Morphology Normal, Hypochromasia 2+, Anisocytosis 1+, Sodium Level 140, Potassium Level 2.5 *L, Chloride Level 100, Carbon Dioxide Level 36H, Anion Gap 3L, Blood Urea Nitrogen 11, Creatinine 0.9, Estimat Glomerular Filtration Rate > 60, Glucose Level 144H, Uric Acid 5.6, Calcium Level 8.3L, Phosphorus Level 1.9L, Magnesium Level 1.7L, Total Bilirubin 0.5, Aspartate Amino Transf (AST/SGOT) 26, Alanine Aminotransferase (ALT/SGPT) 23, Alkaline Phosphatase 68, Total Protein 5.4L, Albumin 1.5L, Globulin 3.9, Albumin/Globulin Ratio 0.4L, Digoxin Level 0.3L 05/12/20 07:40: Arterial Blood pH 7.387, Arterial Blood Partial Pressure CO2 63.4*H, Arterial Blood Partial Pressure O2 65.4L, Arterial Blood HCO3 37.3H, Arterial Blood Oxygen Saturation 91.8L, Arterial Blood Base Excess 10.4*H, Nicolas Test Positive 05/12/20 08:55: Vancomycin Level Trough 21.6H 05/12/20 13:40: D-Dimer 4.83H Height (Feet): 5 Height (Inches): 8.00 Weight (Pounds): 159 General Appearance: no apparent distress EENT: other Cardiovascular: tachycardia Respiratory/Chest: decreased breath sounds Abdomen: distended Kin Bustillo MD May 12, 2020 15:34
[2020-05-12] MEDS ORDERED: Amikacin Rx to dose MISC PRN (16:15)
[2020-05-12] MEDS ORDERED: Amikacin 1,000 MG in NS 110 ML IV SCH (18:00)
[2020-05-12] MEDS ORDERED: Digoxin 0.5mg/2ml Inj IVP SCH (18:00)
--- NOTE | 2020-05-12 18:56 | Cardiac Electrophysiology PN ---
Assessment/Plan Assessment/Plan 1. Sinus tachycardia due with no evidence of atrial fibrillation or SVT. This is due to the patient's underlying sepsis and pneumonia. His echocardiogram showed ejection fraction of 55%. The patient received his second dose of digoxin as there was a question of atrial fibrillation. HR better on Lopressor 25 bid 2. Respiratory failure, currently on the ventilator and iv Abx. Echocardiogram showed normal left ventricular systolic function but brain natriuretic peptide is almost 4000. Continue Lasix 40 iv bid. 3. History of seizure disorder. 4. Dysphagia, status post PEG placement. 5. COPD, nosocomial pneumonia. 6. History of CVA. Subjective Subjective In ICU on the Vent on fentanyl drip. Fio2 down to 85%. Objective Last 24 Hour Vital Signs Date Time Temp Pulse Resp B/P (MAP) Pulse Ox O2 Delivery O2 Flow Rate FiO2 05/12/20 18:49 132 22 85 05/12/20 18:30 134 22 135/80 98 Mechanical Ventilator 85 05/12/20 18:00 133 24 150/83 99 Mechanical Ventilator 85 05/12/20 17:36 21 109/50 Endotracheal Tube 15.0 85 05/12/20 17:35 119 05/12/20 17:30 120 19 132/71 99 Mechanical Ventilator 85 05/12/20 17:02 112 21 85 05/12/20 17:00 18 109/50 Endotracheal Tube 85 05/12/20 17:00 109 20 109/50 100 Mechanical Ventilator 85 05/12/20 16:45 110 19 94/60 100 Mechanical Ventilator 100 05/12/20 16:30 113 19 92/61 100 Mechanical Ventilator 100 05/12/20 16:00 Endotracheal Tube 05/12/20 16:00 97.0 119 19 111/64 100 Mechanical Ventilator 100 05/12/20 16:00 19 111/64 Endotracheal Tube 100 05/12/20 16:00 117 05/12/20 16:00 100 05/12/20 15:53 129 21 100 Mechanical Ventilator 05/12/20 15:45 126 19 126/61 100 Mechanical Ventilator 100 05/12/20 15:30 126 21 114/67 100 Mechanical Ventilator 100 05/12/20 15:05 129 21 100 05/12/20 15:00 135 22 140/77 100 Mechanical Ventilator 100 05/12/20 15:00 22 140/77 Endotracheal Tube 100 05/12/20 14:45 133 23 91 Mechanical Ventilator 100 05/12/20 14:30 127 22 136/53 93 Mechanical Ventilator 100 05/12/20 14:15 130 21 105/65 95 Mechanical Ventilator 100 05/12/20 14:03 128 29 100 05/12/20 14:00 23 151/53 Endotracheal Tube 100 05/12/20 14:00 132 23 151/53 94 Mechanical Ventilator 100 05/12/20 13:30 128 25 130/67 96 Mechanical Ventilator 90 05/12/20 13:25 107 22 90 05/12/20 13:00 19 110/44 Endotracheal Tube 90 05/12/20 13:00 115 19 110/44 95 Mechanical Ventilator 90 05/12/20 12:00 97.1 106 19 94/49 99 Mechanical Ventilator 90 05/12/20 12:00 19 94/49 Endotracheal Tube 90 05/12/20 12:00 90 05/12/20 12:00 Endotracheal Tube 05/12/20 11:50 96 05/12/20 11:30 103 18 93/53 100 Mechanical Ventilator 05/12/20 11:05 112 22 90 05/12/20 11:00 19 101/48 Endotracheal Tube 90 05/12/20 11:00 106 19 101/48 100 Mechanical Ventilator 90 05/12/20 10:30 105 18 95/54 100 Mechanical Ventilator 05/12/20 10:00 118 19 110/58 100 Mechanical Ventilator 90 05/12/20 10:00 19 110/58 Endotracheal Tube 90 05/12/20 09:45 121 17 100 Mechanical Ventilator 05/12/20 09:30 124 19 109/63 100 Mechanical Ventilator 90 05/12/20 09:15 125 19 99/57 100 Mechanical Ventilator 90 05/12/20 09:07 20 117/56 Mechanical Ventilator 15.0 90 05/12/20 09:00 122 19 87/54 100 Mechanical Ventilator 90 05/12/20 08:48 115 20 90 05/12/20 08:30 125 24 115/62 81 Mechanical Ventilator 90 05/12/20 08:00 124 05/12/20 08:00 80 05/12/20 08:00 96.6 125 22 104/56 99 Mechanical Ventilator 80 05/12/20 08:00 22 104/56 Endotracheal Tube 80 05/12/20 08:00 Endotracheal Tube 05/12/20 07:45 129 27 98 Mechanical Ventilator 80 05/12/20 07:40 114 20 80 05/12/20 07:30 123 22 103/54 95 Mechanical Ventilator 80 05/12/20 07:15 125 20 89/57 96 Mechanical Ventilator 80 05/12/20 07:05 121 20 76/50 99 Mechanical Ventilator 80 05/12/20 07:00 121 19 77/43 99 Mechanical Ventilator 80 05/12/20 07:00 28 108/81 Mechanical Ventilator 80 05/12/20 06:30 126 23 106/61 98 Mechanical Ventilator 80 05/12/20 06:30 125 26 05/12/20 06:00 25 106/61 Mechanical Ventilator 80 05/12/20 06:00 135 29 119/55 Mechanical Ventilator 80 05/12/20 05:30 121 21 80 05/12/20 05:30 131 30 115/60 92 Mechanical Ventilator 80 05/12/20 05:00 132 25 103/62 98 Mechanical Ventilator 80 05/12/20 05:00 28 115/60 Mechanical Ventilator 80 05/12/20 04:30 137 25 117/69 97 Mechanical Ventilator 80 05/12/20 04:00 98.8 129 26 162/71 94 Mechanical Ventilator 80 05/12/20 04:00 115 05/12/20 04:00 Endotracheal Tube 05/12/20 04:00 27 117/69 Mechanical Ventilator 80 05/12/20 04:00 80 05/12/20 03:34 115 26 80 05/12/20 03:30 108 22 107/69 100 Mechanical Ventilator 80 05/12/20 03:18 106 21 126/62 100 Mechanical Ventilator 80 05/12/20 03:01 108 23 86/50 100 Mechanical Ventilator 80 05/12/20 03:00 23 126/62 Mechanical Ventilator 80 05/12/20 02:30 113 25 92/57 98 Mechanical Ventilator 80 05/12/20 02:00 24 92/57 Mechanical Ventilator 80 05/12/20 02:00 123 29 108/62 96 Mechanical Ventilator 80 05/12/20 01:45 128 28 99 Mechanical Ventilator 80 05/12/20 01:30 136 28 127/59 99 Mechanical Ventilator 80 05/12/20 01:20 110 28 100 05/12/20 01:15 133 29 100 Mechanical Ventilator 80 05/12/20 01:00 29 135/73 Mechanical Ventilator 80 7/29/20 01:00 129 29 135/73 100 Mechanical Ventilator 80 7/29/20 00:30 117 26 120/64 100 Mechanical Ventilator 80 7/29/20 00:00 80 7/29/20 00:00 98.0 119 26 127/58 100 Mechanical Ventilator 80 7/29/20 00:00 118 7/29/20 00:00 27 120/64 Mechanical Ventilator 80 7/29/20 00:00 Endotracheal Tube 7/ 23:45 121 26 99 Mechanical Ventilator 80 7//20 23:30 125 26 125/58 100 Mechanical Ventilator 80 7//20 23:15 122 22 100 Mechanical Ventilator 80 7//20 23:10 132 21 100 7/28/20 23:00 26 125/58 Mechanical Ventilator 26 7/20 23:00 119 25 145/56 100 Mechanical Ventilator 80 7//20 22:45 120 26 140/70 100 Mechanical Ventilator 80 7//20 22:30 117 24 134/62 100 Mechanical Ventilator 80 7//20 22:24 107 19 116/57 100 Mechanical Ventilator 80 720 22:22 81/44 7/28/20 22:15 104 19 100 Mechanical Ventilator 80 7//20 22:00 108 24 85/44 100 Mechanical Ventilator 80 7//20 22:00 24 116/57 Mechanical Ventilator 80 7//20 21:30 101 18 93/46 100 Mechanical Ventilator 80 7//20 21:25 106 21 109/62 100 Mechanical Ventilator 80 7//20 21:11 97 20 80/39 100 Mechanical Ventilator 80 7//20 21:00 131 20 80 7//20 21:00 21 82/42 Mechanical Ventilator 80 7//20 21:00 104 22 82/42 100 Mechanical Ventilator 80 7/28/20 20:58 101 21 91/51 100 Mechanical Ventilator 80 7/28/20 20:55 101 20 78/48 100 Mechanical Ventilator 80 7/28/20 20:51 101 81/44 7/28/20 20:50 23 81/44 Mechanical Ventilator 15.0 80 7/28/20 20:46 103 22 81/49 100 Mechanical Ventilator 80 7/28/20 20:39 103 20 81/50 100 Mechanical Ventilator 80 7/28/20 20:31 106 20 81/48 100 Mechanical Ventilator 80 7/28/20 20:26 99.1 05/11/20 20:00 100.1 131 26 120/61 100 Mechanical Ventilator 80 05/11/20 20:00 131 05/11/20 20:00 Endotracheal Tube 05/11/20 20:00 21 120/61 Mechanical Ventilator 80 05/11/20 20:00 80 05/11/20 19:50 128 23 80 05/11/20 19:30 138 25 155/67 100 Mechanical Ventilator 80 05/11/20 19:15 132 22 100 Mechanical Ventilator 80 05/11/20 19:00 22 130/70 Mechanical Ventilator 80 05/11/20 19:00 124 22 131/61 100 Mechanical Ventilator 80 Intake and Output 05/11/20 05/12/20 19:00 07:00 Intake Total 2325.100 ml 2153.500 ml Output Total 2260 ml 3325 ml Balance 65.100 ml -1171.500 ml Intake Free Water 120 ml 100 ml IV Total 1965.100 ml 1613.500 ml Tube Feeding 240 ml 380 ml Other 60 ml Output Urine Total 2260 ml 3325 ml Laboratory Tests Test 05/12/20 04:15 05/12/20 07:40 05/12/20 08:55 05/12/20 13:40 White Blood Count 26.9 K/UL (4.8-10.8) *H Red Blood Count 3.15 M/UL (4.70-6.10) L Hemoglobin 9.9 G/DL (14.2-18.0) L Hematocrit 30.1 % (42.0-52.0) L Mean Corpuscular Volume 95 FL (80-99) Mean Corpuscular Hemoglobin 31.4 PG (27.0-31.0) H Mean Corpuscular Hemoglobin Concent 32.9 G/DL (32.0-36.0) Red Cell Distribution Width 12.6 % (11.6-14.8) Platelet Count 414 K/UL (150-450) Mean Platelet Volume 7.4 FL (6.5-10.1) Neutrophils (%) (Auto) % (45.0-75.0) Lymphocytes (%) (Auto) % (20.0-45.0) Monocytes (%) (Auto) % (1.0-10.0) Eosinophils (%) (Auto) % (0.0-3.0) Basophils (%) (Auto) % (0.0-2.0) Differential Total Cells Counted 100 Neutrophils % (Manual) 95 % (45-75) H Lymphocytes % (Manual) 4 % (20-45) L Monocytes % (Manual) 1 % (1-10) Eosinophils % (Manual) 0 % (0-3) Basophils % (Manual) 0 % (0-2) Band Neutrophils 0 % (0-8) Platelet Estimate Adequate Platelet Morphology Normal Hypochromasia 2+ Anisocytosis 1+ Sodium Level 140 MMOL/L (136-145) Potassium Level 2.5 MMOL/L (3.5-5.1) *L Chloride Level 100 MMOL/L (98-107) Carbon Dioxide Level 36 MMOL/L (21-32) H Anion Gap 3 mmol/L (5-15) L Blood Urea Nitrogen 11 mg/dL (7-18) Creatinine 0.9 MG/DL (0.55-1.30) Estimat Glomerular Filtration Rate > 60 mL/min (>60) Glucose Level 144 MG/DL (74-106) H Uric Acid 5.6 MG/DL (2.6-7.2) Calcium Level 8.3 MG/DL (8.5-10.1) L Phosphorus Level 1.9 MG/DL (2.5-4.9) L Magnesium Level 1.7 MG/DL (1.8-2.4) L Total Bilirubin 0.5 MG/DL (0.2-1.0) Aspartate Amino Transf (AST/SGOT) 26 U/L (15-37) Alanine Aminotransferase (ALT/SGPT) 23 U/L (12-78) Alkaline Phosphatase 68 U/L (46-116) Total Protein 5.4 G/DL (6.4-8.2) L Albumin 1.5 G/DL (3.4-5.0) L Globulin 3.9 g/dL Albumin/Globulin Ratio 0.4 (1.0-2.7) L Digoxin Level 0.3 NG/ML (0.5-2.0) L Arterial Blood pH 7.387 (7.350-7.450) Arterial Blood Partial Pressure CO2 63.4 mmHg (35.0-45.0) *H Arterial Blood Partial Pressure O2 65.4 mmHg (75.0-100.0) L Arterial Blood HCO3 37.3 mmol/L (22.0-26.0) H Arterial Blood Oxygen Saturation 91.8 % (95-100) L Arterial Blood Base Excess 10.4 (-2-2) *H Nicolas Test Positive Vancomycin Level Trough 21.6 ug/mL (5.0-12.0) H D-Dimer 4.83 mg/L FEU (0.00-0.49) H Microbiology Date/Time Source Procedure Growth Status 05/10/20 15:45 Blood Blood Culture - Preliminary NO GROWTH AFTER 24 HOURS Resulted 05/10/20 15:30 Blood Blood Culture - Preliminary NO GROWTH AFTER 24 HOURS Resulted 05/10/20 10:15 Sputum Gram Stain - Final Resulted 05/10/20 10:15 Sputum Culture - Preliminary Gram Negative Bacillus 1 Gram Negative Bacillus 2 Resulted Objective HEAD AND NECK: No JVD. He is orally intubated. LUNGS: Coarse rhonchi. CARDIOVASCULAR: Shows tachycardic S1 and S2 with no gallop. ABDOMEN: Status post G-tube. EXTREMITIES: 1+ pitting edema. Trace Diaz MD May 12, 2020 18:56
[2020-05-12] MEDS: Dyna-Hex 2% Top Sol 2oz TOPIC SCH (19:56)
[2020-05-12] MEDS: Miralax 17gm pkt ORAL SCH (20:30)
[2020-05-12] MEDS: Iron Sucrose 100 MG in NS 55 ML IV SCH (20:33)
[2020-05-12] MEDS: Vancomycin 750 MG in NS 275 ML IVPB SCH (21:30)
[2020-05-13] VITALS (67 sets, daily range): BP systolic 72–161; BP diastolic 39–90
[2020-05-13] MEDS: Erythromycin Inj 50 MG in NS 55 ML IVPB SCH ×2 (01:31→08:54)
[2020-05-13] MEDS: fentaNYL 2500mcg/NS 250ml 250 ML IV SCH ×2 (02:23→13:07)
[2020-05-13] MEDS: Metoclopramide 10mg/2ml Inj IVP SCH ×2 (04:15→08:54)
[2020-05-13] MEDS: Meropenem 1 GM in NS 55 ML IVPB SCH ×3 (05:13→21:27)
[2020-05-13] MEDS: Midodrine 10mg tab GT SCH ×3 (05:13→21:26)
[2020-05-13 06:01] LABS: HEMATOCRIT 28.2 % (42.0-52.0); MEAN CORPUSCULAR VOLUME 97 FL (80-99); PLATELET COUNT 360 K/UL (150-450); RED CELL DISTRIBUTION WIDTH 13.1 % (11.6-14.8); WHITE BLOOD COUNT 21.1 K/UL (4.8-10.8)
[2020-05-13 06:06] LABS: ALANINE AMINOTRANSFERASE 26 U/L (12-78); ALBUMIN 1.4 G/DL (3.4-5.0); ALBUMIN/GLOBULIN RATIO 0.4 (1.0-2.7); ALKALINE PHOSPHATASE 64 U/L (46-116); ANION GAP 3 mmol/L (5-15); ASPARTATE AMINO TRANSFERASE 19 U/L (15-37); BILIRUBIN,TOTAL 0.4 MG/DL (0.2-1.0); BLOOD UREA NITROGEN 15 mg/dL (7-18); CALCIUM 8.2 MG/DL (8.5-10.1); CARBON DIOXIDE 37 MMOL/L (21-32); CHLORIDE 104 MMOL/L (98-107); CREATININE 0.9 MG/DL (0.55-1.30); PHOSPHORUS 3.2 MG/DL (2.5-4.9); POTASSIUM 2.9 MMOL/L (3.5-5.1); SODIUM 144 MMOL/L (136-145)
[2020-05-13] MEDS: Norepinephrine 4mg/NS Premix 250 ML IV SCH (06:37)
[2020-05-13] MEDS ORDERED: Potassium Chloride 50 MEQ in Sodium Chloride 550 ML IVPB ONE (08:00)
[2020-05-13] MEDS: Pantoprazole Inj IVP SCH (08:54)
[2020-05-13] MEDS: levETIRAcetam 500mg/5ml Liquid GT SCH ×2 (08:55→20:42)
[2020-05-13] MEDS: Aspirin Baby 81mg GT SCH (08:55)
[2020-05-13] MEDS: Docusate 100mg/10ml Liq GT SCH ×2 (08:55→20:40)
[2020-05-13] MEDS: Heparin 5000 units/ml inj SUBQ SCH ×2 (08:56→20:43)
--- NOTE | 2020-05-13 09:10 | Nephrology Progress Note ---
Assessment/Plan Problem List: (1) Electrolyte imbalance (2) Dehydration (3) Acute respiratory failure (4) Seizure disorder Assessment Severe electrolyte abnormalities Low magnesium, low phosphorus, low potassium, Other active conditions: (1) Acute respiratory failure (2) Sepsis (3) Nosocomial pneumonia (4) Seizure disorder (5) Dehydration (6) COPD (chronic obstructive pulmonary disease) (7) [facility] resident (8) History of CVA (cerebrovascular accident) Plan May 13: Lab reviewed. Potassium supplements given. Patient has diarrhea. Tolerating G-tube feeding as per ASAD Perez. Reglan and erythromycin IV discontinued. Continue to monitor renal parameters. Low-dose digoxin started. May 12: Labs reviewed. Magnesium, potassium, phosphorus supplement given. IV digoxin repeated. IV fluids stopped. May 11: Renal parameters stable. Continue digoxin for tachycardia. May 10: Tachycardia improved. Renal parameters stable. Continue per consultants. May 09: Patient remains tachycardic. 2D echocardiogram done results pending. 1 dose of IV digoxin ordered. Discussed with ASAD Dixon. Remains stable from renal standpoint of view. May 08: Magnesium sulfate IV ordered for hypomagnesemia. Patient has metabolic acidosis. IV sodium bicarb given. Feeding on hold due to residual. IV Reglan ordered. IV fluid changed to D10 normal saline. 2D echocardiogram ordered for tachycardia. Chest x-ray suggests worsening pulmonary infiltrate. Discussed with ASAD Stevens Remains stable from renal standpoint of view Discussed with ASAD mag , phosphorus and potassium supplement as needed Monitor electrolytes Continue per consultants Subjective ROS Limited/Unobtainable: Yes Objective Objective Last 24 Hour Vital Signs Date Time Temp Pulse Resp B/P (MAP) Pulse Ox O2 Delivery O2 Flow Rate FiO2 05/13/20 08:54 119 123/68 05/13/20 08:42 129 24 70 05/13/20 08:00 97.1 118 17 123/70 98 Mechanical Ventilator 70 05/13/20 08:00 70 05/13/20 07:00 20 102/74 Mechanical Ventilator 70 05/13/20 07:00 111 20 102/74 96 Mechanical Ventilator 70 05/13/20 06:54 110 23 70 05/13/20 06:45 109 19 106/63 95 Mechanical Ventilator 70 05/13/20 06:37 77/39 05/13/20 06:30 105 20 05/13/20 06:30 104 20 77/39 100 Mechanical Ventilator 70 7/30/20 06:15 110 19 110/69 98 Mechanical Ventilator 70 7/30/20 06:00 20 72/57 Mechanical Ventilator 70 730/20 06:00 109 21 82/47 100 Mechanical Ventilator 70 730/20 05:58 110 20 72/57 100 Mechanical Ventilator 70 7/30/20 05:56 111 19 83/43 100 Mechanical Ventilator 70 7/30/20 05:45 114 17 89/43 99 Mechanical Ventilator 70 730/20 05:30 114 18 110/51 97 Mechanical Ventilator 70 730/20 05:15 111 18 106/52 98 Mechanical Ventilator 70 730/20 05:00 20 112/79 Mechanical Ventilator 70 730/20 05:00 109 19 112/79 98 Mechanical Ventilator 70 7 04:53 108 23 70 05/13/ 04:45 107 17 125/57 83 Mechanical Ventilator 70 05/13/20 04:30 109 17 132/67 92 Mechanical Ventilator 70 05/13/20 04:15 109 17 122/54 95 Mechanical Ventilator 70 05/13/20 04:00 70 05/13/20 04:00 98.1 112 17 134/72 92 Mechanical Ventilator 70 05/13/20 04:00 20 134/72 Mechanical Ventilator 70 05/13/20 04:00 Endotracheal Tube 05/13/20 03:45 113 17 127/55 91 Mechanical Ventilator 70 05/13/20 03:30 20 127/55 Mechanical Ventilator 70 20 03:30 118 20 118/49 94 Mechanical Ventilator 70 30/20 03:15 116 18 133/75 94 Mechanical Ventilator 70 20 03:01 118 05/13/20 03:00 20 127/77 Mechanical Ventilator 70 730/20 03:00 118 18 127/77 93 Mechanical Ventilator 70 30/20 02:50 121 23 70 7/30/20 02:45 121 18 124/81 89 Mechanical Ventilator 70 730/20 02:30 123 24 154/61 91 Mechanical Ventilator 70 730/20 02:23 20 119/57 Mechanical Ventilator 70 730/20 02:15 124 23 119/57 91 Mechanical Ventilator 70 7/30/20 02:00 127 25 144/42 92 Mechanical Ventilator 70 730/20 01:45 125 25 133/83 91 Mechanical Ventilator 70 730/20 01:30 116 22 118/68 95 Mechanical Ventilator 70 05/13/20 01:15 111 21 146/46 96 Mechanical Ventilator 70 05/13/20 01:00 105 20 105/58 97 Mechanical Ventilator 70 05/13/20 01:00 20 105/58 Mechanical Ventilator 70 05/13/20 00:50 107 25 70 05/13/20 00:45 100 19 93/47 98 Mechanical Ventilator 70 05/13/20 00:30 100 20 94/47 97 Mechanical Ventilator 70 05/13/20 00:15 98 19 89/53 98 Mechanical Ventilator 70 05/13/20 00:05 98 20 89/50 97 Mechanical Ventilator 70 05/13/20 00:00 Endotracheal Tube 05/13/20 00:00 20 89/53 Mechanical Ventilator 70 05/13/20 00:00 97.1 98 20 84/50 97 Mechanical Ventilator 70 05/12/20 23:45 98 20 92/49 99 Mechanical Ventilator 70 05/12/20 23:32 96 05/12/20 23:30 100 19 94/53 97 Mechanical Ventilator 70 05/12/20 23:15 21 79/51 Mechanical Ventilator 70 05/12/20 23:15 98 21 86/46 98 Mechanical Ventilator 85 05/12/20 23:00 99 21 80/49 97 Mechanical Ventilator 85 05/12/20 23:00 20 84/51 Mechanical Ventilator 70 05/12/20 22:49 98 20 70 05/12/20 22:45 97 23 93/50 100 Mechanical Ventilator 85 05/12/20 22:30 98 19 81/48 100 Mechanical Ventilator 85 05/12/20 22:15 98 20 84/50 100 Mechanical Ventilator 85 05/12/20 22:04 99 20 87/45 100 Mechanical Ventilator 85 7/ 22:00 20 80/48 Mechanical Ventilator 80 7/20 22:00 100 20 80/48 100 Mechanical Ventilator 85 7/20 21:45 103 21 88/52 100 Mechanical Ventilator 85 7/ 21:30 103 19 90/54 100 Mechanical Ventilator 85 729/20 21:15 111 20 103/65 100 Mechanical Ventilator 85 05/12/20 21:00 124 23 85 720 21:00 19 134/58 Mechanical Ventilator 80 20 21:00 124 16 100 Mechanical Ventilator 85 7/20 20:45 126 18 129/77 100 Mechanical Ventilator 85 05/12/20 20:30 128 116/80 05/12/20 20:30 128 18 128/69 99 Mechanical Ventilator 85 05/12/20 20:20 18 116/80 Mechanical Ventilator 80 05/12/20 20:15 129 19 116/80 98 Mechanical Ventilator 85 05/12/20 20:00 Endotracheal Tube 05/12/20 20:00 97.1 129 20 137/67 99 Mechanical Ventilator 85 05/12/20 20:00 19 137/67 Mechanical Ventilator 80 05/12/20 20:00 80 05/12/20 19:17 127 05/12/20 19:00 19 128/68 Endotracheal Tube 85 05/12/20 19:00 134 19 128/68 97 Mechanical Ventilator 85 05/12/20 18:49 132 22 85 05/12/20 18:30 134 22 135/80 98 Mechanical Ventilator 85 05/12/20 18:00 133 24 150/83 99 Mechanical Ventilator 85 05/12/20 18:00 24 150/83 Endotracheal Tube 85 05/12/20 17:36 21 109/50 Endotracheal Tube 15.0 85 05/12/20 17:35 119 05/12/20 17:30 120 19 132/71 99 Mechanical Ventilator 85 05/12/20 17:02 112 21 85 05/12/20 17:00 18 109/50 Endotracheal Tube 85 05/12/20 17:00 109 20 109/50 100 Mechanical Ventilator 85 05/12/20 16:45 110 19 94/60 100 Mechanical Ventilator 100 05/12/20 16:30 113 19 92/61 100 Mechanical Ventilator 100 05/12/20 16:00 Endotracheal Tube 05/12/20 16:00 97.0 119 19 111/64 100 Mechanical Ventilator 100 05/12/20 16:00 19 111/64 Endotracheal Tube 100 05/12/20 16:00 117 05/12/20 16:00 100 05/12/20 15:53 129 21 100 Mechanical Ventilator 100 05/12/20 15:45 126 19 126/61 100 Mechanical Ventilator 100 05/12/20 15:30 126 21 114/67 100 Mechanical Ventilator 100 05/12/20 15:05 129 21 100 05/12/20 15:00 135 22 140/77 100 Mechanical Ventilator 100 7/29/20 15:00 22 140/77 Endotracheal Tube 100 05/12/20 14:45 133 23 91 Mechanical Ventilator 100 05/12/20 14:30 127 22 136/53 93 Mechanical Ventilator 100 05/12/20 14:15 130 21 105/65 95 Mechanical Ventilator 100 05/12/20 14:03 128 29 100 05/12/20 14:00 23 151/53 Endotracheal Tube 100 05/12/20 14:00 132 23 151/53 94 Mechanical Ventilator 100 05/12/20 13:30 128 25 130/67 96 Mechanical Ventilator 90 05/12/20 13:25 107 22 90 05/12/20 13:00 19 110/44 Endotracheal Tube 90 05/12/20 13:00 115 19 110/44 95 Mechanical Ventilator 90 05/12/20 12:00 97.1 106 19 94/49 99 Mechanical Ventilator 90 05/12/20 12:00 19 94/49 Endotracheal Tube 90 05/12/20 12:00 90 05/12/20 12:00 Endotracheal Tube 05/12/20 11:50 96 05/12/20 11:30 103 18 93/53 100 Mechanical Ventilator 90 05/12/20 11:05 112 22 90 05/12/20 11:00 19 101/48 Endotracheal Tube 90 05/12/20 11:00 106 19 101/48 100 Mechanical Ventilator 90 05/12/20 10:30 105 18 95/54 100 Mechanical Ventilator 90 05/12/20 10:00 118 19 110/58 100 Mechanical Ventilator 90 05/12/20 10:00 19 110/58 Endotracheal Tube 90 05/12/20 09:45 121 17 100 Mechanical Ventilator 05/12/20 09:30 124 19 109/63 100 Mechanical Ventilator 90 05/12/20 09:15 125 19 99/57 100 Mechanical Ventilator 90 Intake and Output 05/12/20 05/13/20 19:00 07:00 Intake Total 1546.39 ml 1370.9080 ml Output Total 965 ml 800 ml Balance 581.39 ml 570.9080 ml IV Total 1366.39 ml 850.9080 ml Tube Feeding 180 ml 520 ml Output Urine Total 965 ml 800 ml # Bowel Movements 2 Laboratory Tests 05/12/20 13:40: D-Dimer 4.83H 05/13/20 05:50: White Blood Count 21.1H, Red Blood Count 2.90L, Hemoglobin 9.0L, Hematocrit 28.2L, Mean Corpuscular Volume 97, Mean Corpuscular Hemoglobin 30.9, Mean Corpuscular Hemoglobin Concent 31.9L, Red Cell Distribution Width 13.1, Platelet Count 360, Mean Platelet Volume 7.8, Neutrophils (%) (Auto) , Lymphocytes (%) (Auto) , Monocytes (%) (Auto) , Eosinophils (%) (Auto) , Basophils (%) (Auto) , Differential Total Cells Counted 100, Neutrophils % ( Manual) 92H, Lymphocytes % (Manual) 3L, Monocytes % (Manual) 5, Eosinophils % ( Manual) 0, Basophils % (Manual) 0, Band Neutrophils 0, Platelet Estimate Adequate, Platelet Morphology Normal, Hypochromasia 1+, Sodium Level 144, Potassium Level 2.9L, Chloride Level 104, Carbon Dioxide Level 37H, Anion Gap 3L , Blood Urea Nitrogen 15, Creatinine 0.9, Estimat Glomerular Filtration Rate > 60, Glucose Level 137H, Calcium Level 8.2L, Phosphorus Level 3.2, Magnesium Level 2.0, Total Bilirubin 0.4, Aspartate Amino Transf (AST/SGOT) 19, Alanine Aminotransferase (ALT/SGPT) 26, Alkaline Phosphatase 64, Total Protein 5.2L, Albumin 1.4L, Globulin 3.8, Albumin/Globulin Ratio 0.4L, Random Amikacin Level [ Pending] 05/13/20 06:38: Arterial Blood pH 7.381, Arterial Blood Partial Pressure CO2 63.6*H, Arterial Blood Partial Pressure O2 97.7, Arterial Blood HCO3 36.9H, Arterial Blood Oxygen Saturation 96.8, Arterial Blood Base Excess 10.3*H, Nicolas Test Positive Height (Feet): 5 Height (Inches): 8.00 Weight (Pounds): 159 General Appearance: no apparent distress EENT: other - Intubated on ventilator Respiratory/Chest: decreased breath sounds Abdomen: distended Kin Bustillo MD May 13, 2020 09:10
--- NOTE | 2020-05-13 10:00 | Diagnostic Imaging Report ---
Procedure: XRAY Chest 1v Reason for study: Reason For Exam: SOB Comparison films: 05/12/2020. FINDINGS: Endotracheal tube and right central venous catheter remain in place. Bilateral alveolar infiltrates again noted not significantly changed. Cardiac and mediastinal silhouette are within normal limits. CP angles are sharp. The bony thorax appear unremarkable. IMPRESSION: NO SIGNIFICANT CHANGE COMPARED TO PREVIOUS EXAM.
[2020-05-13] MEDS: Vancomycin 750 MG in NS 275 ML IVPB SCH ×2 (10:36→21:27)
--- NOTE | 2020-05-13 10:41 | Cardiac Electrophysiology PN ---
Assessment/Plan Assessment/Plan 1. Sinus tachycardia with no evidence of atrial fibrillation or SVT due to sepsis and pneumonia. His echocardiogram showed ejection fraction of 55%. On Dig 0.125 and Lopressor 25 bid for transient atrial fib 2. Respiratory failure, currently on the ventilator and iv Abx. Echocardiogram showed normal left ventricular systolic function but brain natriuretic peptide is almost 4000. Continue Lasix 40 iv bid. 3. History of seizure disorder. 4. Dysphagia, status post PEG placement. 5. COPD, nosocomial pneumonia. 6. History of CVA. Subjective Subjective In ICU on the Vent on fentanyl drip and 2 Mc of Levophed. Fio2 85%. Objective Last 24 Hour Vital Signs Date Time Temp Pulse Resp B/P (MAP) Pulse Ox O2 Delivery O2 Flow Rate FiO2 05/13/20 10:35 108 05/13/20 10:00 116 17 115/50 95 Mechanical Ventilator 70 05/13/20 09:30 115 15 117/59 94 Mechanical Ventilator 70 05/13/20 09:00 120 20 136/77 95 Mechanical Ventilator 70 05/13/20 08:54 119 123/68 05/13/20 08:42 129 24 70 05/13/20 08:30 124 20 124/56 95 Mechanical Ventilator 70 05/13/20 08:20 115 05/13/20 08:00 97.1 118 17 123/70 98 Mechanical Ventilator 70 05/13/20 08:00 70 05/13/20 07:00 20 102/74 Mechanical Ventilator 70 05/13/20 07:00 111 20 102/74 96 Mechanical Ventilator 70 05/13/20 06:54 110 23 70 05/13/20 06:45 109 19 106/63 95 Mechanical Ventilator 70 05/13/20 06:37 77/39 05/13/20 06:30 105 20 05/13/20 06:30 104 20 77/39 100 Mechanical Ventilator 05/13/20 06:15 110 19 110/69 98 Mechanical Ventilator 70 05/13/20 06:00 20 72/57 Mechanical Ventilator 70 05/13/20 06:00 109 21 82/47 100 Mechanical Ventilator 70 05/13/20 05:58 110 20 72/57 100 Mechanical Ventilator 70 05/13/20 05:56 111 19 83/43 100 Mechanical Ventilator 70 05/13/20 05:45 114 17 89/43 99 Mechanical Ventilator 70 05/13/20 05:30 114 18 110/51 97 Mechanical Ventilator 70 05/13/20 05:15 111 18 106/52 98 Mechanical Ventilator 70 05/13/20 05:00 20 112/79 Mechanical Ventilator 70 05/13/20 05:00 109 19 112/79 98 Mechanical Ventilator 70 05/13/20 04:53 108 23 70 05/13/20 04:45 107 17 125/57 83 Mechanical Ventilator 70 05/13/20 04:30 109 17 132/67 92 Mechanical Ventilator 70 05/13/20 04:15 109 17 122/54 95 Mechanical Ventilator 70 05/13/20 04:00 70 05/13/20 04:00 98.1 112 17 134/72 92 Mechanical Ventilator 70 05/13/20 04:00 20 134/72 Mechanical Ventilator 70 05/13/20 04:00 Endotracheal Tube 05/13/20 03:45 113 17 127/55 91 Mechanical Ventilator 70 05/13/20 03:30 20 127/55 Mechanical Ventilator 70 05/13/20 03:30 118 20 118/49 94 Mechanical Ventilator 70 05/13/20 03:15 116 18 133/75 94 Mechanical Ventilator 70 05/13/20 03:01 118 05/13/20 03:00 20 127/77 Mechanical Ventilator 70 05/13/20 03:00 118 18 127/77 93 Mechanical Ventilator 70 05/13/20 02:50 121 23 70 05/13/20 02:45 121 18 124/81 89 Mechanical Ventilator 70 05/13/20 02:30 123 24 154/61 91 Mechanical Ventilator 70 05/13/20 02:23 20 119/57 Mechanical Ventilator 70 05/13/20 02:15 124 23 119/57 91 Mechanical Ventilator 70 05/13/20 02:00 127 25 144/42 92 Mechanical Ventilator 70 05/13/20 01:45 125 25 133/83 91 Mechanical Ventilator 70 05/13/20 01:30 116 22 118/68 95 Mechanical Ventilator 70 05/13/20 01:15 111 21 146/46 96 Mechanical Ventilator 70 05/13/20 01:00 105 20 105/58 97 Mechanical Ventilator 70 05/13/20 01:00 20 105/58 Mechanical Ventilator 70 05/13/20 00:50 107 25 70 05/13/20 00:45 100 19 93/47 98 Mechanical Ventilator 70 05/13/20 00:30 100 20 94/47 97 Mechanical Ventilator 70 05/13/20 00:15 98 19 89/53 98 Mechanical Ventilator 70 05/13/20 00:05 98 20 89/50 97 Mechanical Ventilator 70 05/13/20 00:00 Endotracheal Tube 05/13/20 00:00 20 89/53 Mechanical Ventilator 70 05/13/20 00:00 97.1 98 20 84/50 97 Mechanical Ventilator 70 05/12/20 23:45 98 20 92/49 99 Mechanical Ventilator 70 05/12/20 23:32 96 05/12/20 23:30 100 19 94/53 97 Mechanical Ventilator 70 05/12/20 23:15 21 79/51 Mechanical Ventilator 70 05/12/20 23:15 98 21 86/46 98 Mechanical Ventilator 85 05/12/20 23:00 99 21 80/49 97 Mechanical Ventilator 85 05/12/20 23:00 20 84/51 Mechanical Ventilator 70 05/12/20 22:49 98 20 70 05/12/20 22:45 97 23 93/50 100 Mechanical Ventilator 85 05/12/20 22:30 98 19 81/48 100 Mechanical Ventilator 85 05/12/20 22:15 98 20 84/50 100 Mechanical Ventilator 85 05/12/20 22:04 99 20 87/45 100 Mechanical Ventilator 85 05/12/20 22:00 20 80/48 Mechanical Ventilator 80 05/12/20 22:00 100 20 80/48 100 Mechanical Ventilator 85 05/12/20 21:45 103 21 88/52 100 Mechanical Ventilator 85 05/12/20 21:30 103 19 90/54 100 Mechanical Ventilator 85 05/12/20 21:15 111 20 103/65 100 Mechanical Ventilator 85 05/12/20 21:00 124 23 85 05/12/20 21:00 19 134/58 Mechanical Ventilator 80 05/12/20 21:00 124 16 100 Mechanical Ventilator 85 05/12/20 20:45 126 18 129/77 100 Mechanical Ventilator 85 05/12/20 20:30 128 116/80 720 20:30 128 18 128/69 99 Mechanical Ventilator 85 7/20 20:20 18 116/80 Mechanical Ventilator 80 05/12/20 20:15 129 19 116/80 98 Mechanical Ventilator 85 05/12/20 20:00 Endotracheal Tube 05/12/20 20:00 97.1 129 20 137/67 99 Mechanical Ventilator 85 7/20 20:00 19 137/67 Mechanical Ventilator 80 05/12/20 20:00 80 05/12/20 19:17 127 05/12/20 19:00 19 128/68 Endotracheal Tube 85 05/12/20 19:00 134 19 128/68 97 Mechanical Ventilator 85 05/12/20 18:49 132 22 85 05/12/20 18:30 134 22 135/80 98 Mechanical Ventilator 85 05/12/20 18:00 133 24 150/83 99 Mechanical Ventilator 85 05/12/20 18:00 24 150/83 Endotracheal Tube 85 05/12/20 17:36 21 109/50 Endotracheal Tube 15.0 85 05/12/20 17:35 119 05/12/20 17:30 120 19 132/71 99 Mechanical Ventilator 85 05/12/20 17:02 112 21 85 05/12/20 17:00 18 109/50 Endotracheal Tube 85 05/12/20 17:00 109 20 109/50 100 Mechanical Ventilator 85 05/12/20 16:45 110 19 94/60 100 Mechanical Ventilator 100 05/12/20 16:30 113 19 92/61 100 Mechanical Ventilator 100 05/12/20 16:00 Endotracheal Tube 05/12/20 16:00 97.0 119 19 111/64 100 Mechanical Ventilator 100 05/12/20 16:00 19 111/64 Endotracheal Tube 100 05/12/20 16:00 117 05/12/20 16:00 100 05/12/20 15:53 129 21 100 Mechanical Ventilator 100 05/12/20 15:45 126 19 126/61 100 Mechanical Ventilator 100 05/12/20 15:30 126 21 114/67 100 Mechanical Ventilator 100 05/12/20 15:05 129 21 100 05/12/20 15:00 135 22 140/77 100 Mechanical Ventilator 100 05/12/20 15:00 22 140/77 Endotracheal Tube 100 05/12/20 14:45 133 23 91 Mechanical Ventilator 100 05/12/20 14:30 127 22 136/53 93 Mechanical Ventilator 100 05/12/20 14:15 130 21 105/65 95 Mechanical Ventilator 100 05/12/20 14:03 128 29 100 05/12/20 14:00 23 151/53 Endotracheal Tube 100 05/12/20 14:00 132 23 151/53 94 Mechanical Ventilator 100 05/12/20 13:30 128 25 130/67 96 Mechanical Ventilator 90 05/12/20 13:25 107 22 90 05/12/20 13:00 19 110/44 Endotracheal Tube 90 05/12/20 13:00 115 19 110/44 95 Mechanical Ventilator 90 05/12/20 12:00 97.1 106 19 94/49 99 Mechanical Ventilator 90 05/12/20 12:00 19 94/49 Endotracheal Tube 90 05/12/20 12:00 90 05/12/20 12:00 Endotracheal Tube 05/12/20 11:50 96 05/12/20 11:30 103 18 93/53 100 Mechanical Ventilator 90 05/12/20 11:05 112 22 90 05/12/20 11:00 19 101/48 Endotracheal Tube 90 05/12/20 11:00 106 19 101/48 100 Mechanical Ventilator 90 Intake and Output 05/12/20 05/13/20 19:00 07:00 Intake Total 1546.39 ml 1370.9080 ml Output Total 965 ml 800 ml Balance 581.39 ml 570.9080 ml IV Total 1366.39 ml 850.9080 ml Tube Feeding 180 ml 520 ml Output Urine Total 965 ml 800 ml # Bowel Movements 2 Laboratory Tests Test 05/12/20 13:40 05/13/20 05:50 05/13/20 06:38 D-Dimer 4.83 mg/L FEU (0.00-0.49) H White Blood Count 21.1 K/UL (4.8-10.8) H Red Blood Count 2.90 M/UL (4.70-6.10) L Hemoglobin 9.0 G/DL (14.2-18.0) L Hematocrit 28.2 % (42.0-52.0) L Mean Corpuscular Volume 97 FL (80-99) Mean Corpuscular Hemoglobin 30.9 PG (27.0-31.0) Mean Corpuscular Hemoglobin Concent 31.9 G/DL (32.0-36.0) L Red Cell Distribution Width 13.1 % (11.6-14.8) Platelet Count 360 K/UL (150-450) Mean Platelet Volume 7.8 FL (6.5-10.1) Neutrophils (%) (Auto) % (45.0-75.0) Lymphocytes (%) (Auto) % (20.0-45.0) Monocytes (%) (Auto) % (1.0-10.0) Eosinophils (%) (Auto) % (0.0-3.0) Basophils (%) (Auto) % (0.0-2.0) Differential Total Cells Counted 100 Neutrophils % (Manual) 92 % (45-75) H Lymphocytes % (Manual) 3 % (20-45) L Monocytes % (Manual) 5 % (1-10) Eosinophils % (Manual) 0 % (0-3) Basophils % (Manual) 0 % (0-2) Band Neutrophils 0 % (0-8) Platelet Estimate Adequate Platelet Morphology Normal Hypochromasia 1+ Sodium Level 144 MMOL/L (136-145) Potassium Level 2.9 MMOL/L (3.5-5.1) L Chloride Level 104 MMOL/L (98-107) Carbon Dioxide Level 37 MMOL/L (21-32) H Anion Gap 3 mmol/L (5-15) L Blood Urea Nitrogen 15 mg/dL (7-18) Creatinine 0.9 MG/DL (0.55-1.30) Estimat Glomerular Filtration Rate > 60 mL/min (>60) Glucose Level 137 MG/DL (74-106) H Calcium Level 8.2 MG/DL (8.5-10.1) L Phosphorus Level 3.2 MG/DL (2.5-4.9) Magnesium Level 2.0 MG/DL (1.8-2.4) Total Bilirubin 0.4 MG/DL (0.2-1.0) Aspartate Amino Transf (AST/SGOT) 19 U/L (15-37) Alanine Aminotransferase (ALT/SGPT) 26 U/L (12-78) Alkaline Phosphatase 64 U/L (46-116) Total Protein 5.2 G/DL (6.4-8.2) L Albumin 1.4 G/DL (3.4-5.0) L Globulin 3.8 g/dL Albumin/Globulin Ratio 0.4 (1.0-2.7) L Random Amikacin Level Pending Arterial Blood pH 7.381 (7.350-7.450) Arterial Blood Partial Pressure CO2 63.6 mmHg (35.0-45.0) *H Arterial Blood Partial Pressure O2 97.7 mmHg (75.0-100.0) Arterial Blood HCO3 36.9 mmol/L (22.0-26.0) H Arterial Blood Oxygen Saturation 96.8 % (95-100) Arterial Blood Base Excess 10.3 (-2-2) *H Nicolas Test Positive Microbiology Date/Time Source Procedure Growth Status 05/10/20 15:45 Blood Blood Culture - Preliminary NO GROWTH AFTER 48 HOURS Resulted 05/10/20 15:30 Blood Blood Culture - Preliminary NO GROWTH AFTER 48 HOURS Resulted Objective HEAD AND NECK: No JVD. He is orally intubated. LUNGS: Coarse rhonchi. CARDIOVASCULAR: Shows tachycardic S1 and S2 with no gallop. ABDOMEN: Status post G-tube. EXTREMITIES: 1+ pitting edema. Trace Diaz MD May 13, 2020 10:41
--- NOTE | 2020-05-13 11:28 | Pulmonolgy Critical Care Note ---
Critical Care - Asmt/Plan Assessment/Plan: ASSESSMENT Acute hypoxemic respiratory failure requiring intubation Sepsis with septic shock Pneumonia Suspected COVID-19 -ruled out Dehydration Probably UTI COPD TOMAS- resolved Seizure disorder History of CVA Functional quadriplegia Dysphagia , feeding by G-tube E/lyte abnormalities PLAN OF CARE ICU back on pressors, vent support, pulmonary toilet sedation, ABG noted, mild hypercapnia, but FiO2 down to 70, will fup with ABG and CXR in am severe hypoxia -> do venous Duplex check d dimer 4.83 DVT prophylaxis abx as per ID BCX 05/10 NGTD SCX 05/10 GNB 2 dif species COVID x2- negative aspiration precaution GTF; KUB noted -> G-tube in place avoid nephrotoxic gentle hydration IV iron monitor H&H with goal to keep Hgb > 7 seizure precautions, continue Keppra Mg and P stable., K further replaced as per nephro case discussed and evaluated by supervising physician Critical Care - Objective Last 24 Hour Vital Signs Date Time Temp Pulse Resp B/P (MAP) Pulse Ox O2 Delivery O2 Flow Rate FiO2 05/13/20 10:42 111 27 70 05/13/20 10:35 108 05/13/20 10:30 106 14 108/79 98 Mechanical Ventilator 70 05/13/20 10:00 116 17 115/50 95 Mechanical Ventilator 05/13/20 09:30 115 15 117/59 94 Mechanical Ventilator 70 05/13/20 09:00 120 20 136/77 95 Mechanical Ventilator 70 05/13/20 08:54 119 123/68 05/13/20 08:42 129 24 70 05/13/20 08:30 124 20 124/56 95 Mechanical Ventilator 70 05/13/20 08:20 115 05/13/20 08:00 97.1 118 17 123/70 98 Mechanical Ventilator 70 05/13/20 08:00 70 05/13/20 07:30 118 17 123/70 98 Mechanical Ventilator 70 05/13/20 07:00 20 102/74 Mechanical Ventilator 70 05/13/20 07:00 111 20 102/74 96 Mechanical Ventilator 70 05/13/20 06:54 110 23 70 05/13/20 06:45 109 19 106/63 95 Mechanical Ventilator 70 05/13/20 06:37 77/39 05/13/20 06:30 105 20 7/30/20 06:30 104 20 77/39 100 Mechanical Ventilator 70 05/13/20 06:15 110 19 110/69 98 Mechanical Ventilator 70 05/13/20 06:00 20 72/57 Mechanical Ventilator 70 20 06:00 109 21 82/47 100 Mechanical Ventilator 70 730/20 05:58 110 20 72/57 100 Mechanical Ventilator 70 30/20 05:56 111 19 83/43 100 Mechanical Ventilator 70 20 05:45 114 17 89/43 99 Mechanical Ventilator 70 20 05:30 114 18 110/51 97 Mechanical Ventilator 70 20 05:15 111 18 106/52 98 Mechanical Ventilator 70 05/13/20 05:00 20 112/79 Mechanical Ventilator 70 05/13/20 05:00 109 19 112/79 98 Mechanical Ventilator 70 05/13/20 04:53 108 23 70 05/13/20 04:45 107 17 125/57 83 Mechanical Ventilator 70 05/13/20 04:30 109 17 132/67 92 Mechanical Ventilator 70 05/13/20 04:15 109 17 122/54 95 Mechanical Ventilator 70 05/13/20 04:00 70 05/13/20 04:00 98.1 112 17 134/72 92 Mechanical Ventilator 70 05/13/20 04:00 20 134/72 Mechanical Ventilator 70 05/13/20 04:00 Endotracheal Tube 05/13/20 03:45 113 17 127/55 91 Mechanical Ventilator 70 05/13/20 03:30 20 127/55 Mechanical Ventilator 70 05/13/20 03:30 118 20 118/49 94 Mechanical Ventilator 70 05/13/20 03:15 116 18 133/75 94 Mechanical Ventilator 70 05/13/20 03:01 118 05/13/20 03:00 20 127/77 Mechanical Ventilator 70 20 03:00 118 18 127/77 93 Mechanical Ventilator 70 05/13/20 02:50 121 23 70 30/20 02:45 121 18 124/81 89 Mechanical Ventilator 70 05/13/20 02:30 123 24 154/61 91 Mechanical Ventilator 70 730/20 02:23 20 119/57 Mechanical Ventilator 70 730/20 02:15 124 23 119/57 91 Mechanical Ventilator 70 05/13/20 02:00 127 25 144/42 92 Mechanical Ventilator 70 05/13/20 01:45 125 25 133/83 91 Mechanical Ventilator 70 05/13/20 01:30 116 22 118/68 95 Mechanical Ventilator 70 05/13/20 01:15 111 21 146/46 96 Mechanical Ventilator 70 05/13/20 01:00 105 20 105/58 97 Mechanical Ventilator 70 05/13/20 01:00 20 105/58 Mechanical Ventilator 70 05/13/20 00:50 107 25 70 05/13/20 00:45 100 19 93/47 98 Mechanical Ventilator 70 05/13/20 00:30 100 20 94/47 97 Mechanical Ventilator 70 05/13/20 00:15 98 19 89/53 98 Mechanical Ventilator 70 05/13/20 00:05 98 20 89/50 97 Mechanical Ventilator 70 05/13/20 00:00 Endotracheal Tube 05/13/20 00:00 20 89/53 Mechanical Ventilator 70 05/13/20 00:00 97.1 98 20 84/50 97 Mechanical Ventilator 70 05/12/20 23:45 98 20 92/49 99 Mechanical Ventilator 70 05/12/20 23:32 96 05/12/20 23:30 100 19 94/53 97 Mechanical Ventilator 70 05/12/20 23:15 21 79/51 Mechanical Ventilator 70 05/12/20 23:15 98 21 86/46 98 Mechanical Ventilator 85 05/12/20 23:00 99 21 80/49 97 Mechanical Ventilator 85 05/12/20 23:00 20 84/51 Mechanical Ventilator 70 05/12/20 22:49 98 20 70 05/12/20 22:45 97 23 93/50 100 Mechanical Ventilator 85 05/12/20 22:30 98 19 81/48 100 Mechanical Ventilator 85 05/12/20 22:15 98 20 84/50 100 Mechanical Ventilator 85 05/12/20 22:04 99 20 87/45 100 Mechanical Ventilator 85 05/12/20 22:00 20 80/48 Mechanical Ventilator 80 05/12/20 22:00 100 20 80/48 100 Mechanical Ventilator 85 05/12/ 21:45 103 21 88/52 100 Mechanical Ventilator 85 729/20 21:30 103 19 90/54 100 Mechanical Ventilator 85 05/12/20 21:15 111 20 103/65 100 Mechanical Ventilator 85 05/12/20 21:00 124 23 85 7 21:00 19 134/58 Mechanical Ventilator 80 7/ 21:00 124 16 100 Mechanical Ventilator 85 05/12/20 20:45 126 18 129/77 100 Mechanical Ventilator 85 05/12/20 20:30 128 116/80 05/12/20 20:30 128 18 128/69 99 Mechanical Ventilator 85 05/12/20 20:20 18 116/80 Mechanical Ventilator 80 05/12/20 20:15 129 19 116/80 98 Mechanical Ventilator 85 05/12/20 20:00 Endotracheal Tube 05/12/20 20:00 97.1 129 20 137/67 99 Mechanical Ventilator 85 05/12/20 20:00 19 137/67 Mechanical Ventilator 80 05/12/20 20:00 80 05/12/20 19:17 127 05/12/20 19:00 19 128/68 Endotracheal Tube 85 05/12/20 19:00 134 19 128/68 97 Mechanical Ventilator 85 05/12/20 18:49 132 22 85 05/12/20 18:30 134 22 135/80 98 Mechanical Ventilator 85 05/12/20 18:00 133 24 150/83 99 Mechanical Ventilator 85 05/12/20 18:00 24 150/83 Endotracheal Tube 85 05/12/20 17:36 21 109/50 Endotracheal Tube 15.0 85 05/12/20 17:35 119 05/12/20 17:30 120 19 132/71 99 Mechanical Ventilator 85 05/12/20 17:02 112 21 85 05/12/20 17:00 18 109/50 Endotracheal Tube 85 05/12/20 17:00 109 20 109/50 100 Mechanical Ventilator 85 05/12/20 16:45 110 19 94/60 100 Mechanical Ventilator 100 05/12/20 16:30 113 19 92/61 100 Mechanical Ventilator 100 05/12/20 16:00 Endotracheal Tube 05/12/20 16:00 97.0 119 19 111/64 100 Mechanical Ventilator 100 05/12/20 16:00 19 111/64 Endotracheal Tube 100 05/12/20 16:00 117 05/12/20 16:00 100 05/12/20 15:53 129 21 100 Mechanical Ventilator 100 05/12/20 15:45 126 19 126/61 100 Mechanical Ventilator 100 05/12/20 15:30 126 21 114/67 100 Mechanical Ventilator 100 05/12/20 15:05 129 21 100 05/12/20 15:00 135 22 140/77 100 Mechanical Ventilator 100 05/12/20 15:00 22 140/77 Endotracheal Tube 100 05/12/20 14:45 133 23 91 Mechanical Ventilator 100 05/12/20 14:30 127 22 136/53 93 Mechanical Ventilator 100 05/12/20 14:15 130 21 105/65 95 Mechanical Ventilator 100 05/12/20 14:03 128 29 100 05/12/20 14:00 23 151/53 Endotracheal Tube 100 05/12/20 14:00 132 23 151/53 94 Mechanical Ventilator 100 05/12/20 13:30 128 25 130/67 96 Mechanical Ventilator 90 05/12/20 13:25 107 22 90 05/12/20 13:00 19 110/44 Endotracheal Tube 90 05/12/20 13:00 115 19 110/44 95 Mechanical Ventilator 90 05/12/20 12:00 97.1 106 19 94/49 99 Mechanical Ventilator 90 05/12/20 12:00 19 94/49 Endotracheal Tube 90 05/12/20 12:00 90 05/12/20 12:00 Endotracheal Tube 05/12/20 11:50 96 05/12/20 11:30 103 18 93/53 100 Mechanical Ventilator 90 Objective: Status: sedated Condition: critical, Vent AC 600-20-70% HEENT: atraumatic, OP with ET in place intact Lungs: few scattered rhonchi Heart: tachycardic, BP still unstable , on Levophed gtt Abdomen: soft, non-tender Extremities: no C/C/E Micro: Microbiology Date/Time Source Procedure Growth Status 05/10/20 15:45 Blood Blood Culture - Preliminary NO GROWTH AFTER 48 HOURS Resulted 05/10/20 15:30 Blood Blood Culture - Preliminary NO GROWTH AFTER 48 HOURS Resulted Critical Care - Subjective ROS Limited/Unobtainable: Yes Interval Events: remains intubated on pressors sedated leukocytosis trending down,s till significant , no fevers CXR w/out much change yet FiO2 down to 70% from 90% this am Condition: critical IV Access: central - RIJ intact EKG Rhythm: Sinus Tachycardia FI02: 70 Vent Support Breath Rate: 20 Vent Support Mode: AC Vent Tidal Volume: 600 Sputum Amount: Moderate PEEP: 0.0 PIP: 23 Drips: Levophed 2 mcg/min, Fentanyl 200 mcg/hr Tube Feeding Amount: 60 I&O: Intake and Output 05/12/20 05/13/20 19:00 07:00 Intake Total 1546.39 ml 1370.9080 ml Output Total 965 ml 800 ml Balance 581.39 ml 570.9080 ml IV Total 1366.39 ml 850.9080 ml Tube Feeding 180 ml 520 ml Output Urine Total 965 ml 800 ml # Bowel Movements 2 CXR: 05/13 Endotracheal tube and right central venous catheter remain in place. Bilateral alveolar infiltrates again noted not significantly changed. Cardiac and mediastinal silhouette are within normal limits. CP angles are sharp. The bony thorax appear unremarkable. ET-Tube: 7.5 ET Position: 24 Erika Kaufman NP May 13, 2020 11:28
--- NOTE | 2020-05-13 11:30 | General Progress Note ---
Assessment/Plan Assessment/Plan: 1. CVA. 2. Seizure disorder. 3. Functional quadriplegia. 4. Schizophrenia. 5. Dysphagia with G-tube. 6. iron def anemia 7. Constipation KUB..>>>.reviewed iv iron fu labs GTF dc lactulose and miralax iv erythromycin Subjective ROS Limited/Unobtainable: No Allergies: Coded Allergies: DIPHENHYDRAMINE (Verified Allergy, Unknown, 02/27/20) Objective Last 24 Hour Vital Signs Date Time Temp Pulse Resp B/P (MAP) Pulse Ox O2 Delivery O2 Flow Rate FiO2 05/13/20 10:42 111 27 70 05/13/20 10:35 108 05/13/20 10:30 106 14 108/79 98 Mechanical Ventilator 70 05/13/20 10:00 116 17 115/50 95 Mechanical Ventilator 70 05/13/20 09:30 115 15 117/59 94 Mechanical Ventilator 70 05/13/20 09:00 120 20 136/77 95 Mechanical Ventilator 70 05/13/20 08:54 119 123/68 05/13/20 08:42 129 24 70 05/13/20 08:30 124 20 124/56 95 Mechanical Ventilator 70 05/13/20 08:20 115 05/13/20 08:00 97.1 118 17 123/70 98 Mechanical Ventilator 70 05/13/20 08:00 70 05/13/20 07:30 118 17 123/70 98 Mechanical Ventilator 70 05/13/20 07:00 20 102/74 Mechanical Ventilator 70 05/13/20 07:00 111 20 102/74 96 Mechanical Ventilator 05/13/20 06:54 110 23 70 05/13/20 06:45 109 19 106/63 95 Mechanical Ventilator 70 05/13/20 06:37 77/39 05/13/20 06:30 105 20 05/13/20 06:30 104 20 77/39 100 Mechanical Ventilator 05/13/20 06:15 110 19 110/69 98 Mechanical Ventilator 70 05/13/20 06:00 20 72/57 Mechanical Ventilator 70 05/13/20 06:00 109 21 82/47 100 Mechanical Ventilator 70 05/13/20 05:58 110 20 72/57 100 Mechanical Ventilator 70 05/13/20 05:56 111 19 83/43 100 Mechanical Ventilator 70 05/13/20 05:45 114 17 89/43 99 Mechanical Ventilator 70 20 05:30 114 18 110/51 97 Mechanical Ventilator 70 20 05:15 111 18 106/52 98 Mechanical Ventilator 70 20 05:00 20 112/79 Mechanical Ventilator 70 05/13/20 05:00 109 19 112/79 98 Mechanical Ventilator 70 05/13/20 04:53 108 23 70 730/20 04:45 107 17 125/57 83 Mechanical Ventilator 70 05/13/20 04:30 109 17 132/67 92 Mechanical Ventilator 70 05/13/20 04:15 109 17 122/54 95 Mechanical Ventilator 70 05/13/20 04:00 70 05/13/20 04:00 98.1 112 17 134/72 92 Mechanical Ventilator 70 05/13/20 04:00 20 134/72 Mechanical Ventilator 70 05/13/20 04:00 Endotracheal Tube 05/13/20 03:45 113 17 127/55 91 Mechanical Ventilator 70 05/13/20 03:30 20 127/55 Mechanical Ventilator 70 05/13/20 03:30 118 20 118/49 94 Mechanical Ventilator 70 05/13/20 03:15 116 18 133/75 94 Mechanical Ventilator 70 05/13/20 03:01 118 05/13/20 03:00 20 127/77 Mechanical Ventilator 70 05/13/20 03:00 118 18 127/77 93 Mechanical Ventilator 70 05/13/20 02:50 121 23 70 05/13/ 02:45 121 18 124/81 89 Mechanical Ventilator 70 05/13/20 02:30 123 24 154/61 91 Mechanical Ventilator 70 05/13/20 02:23 20 119/57 Mechanical Ventilator 70 05/13/20 02:15 124 23 119/57 91 Mechanical Ventilator 70 05/13/20 02:00 127 25 144/42 92 Mechanical Ventilator 70 05/13/ 01:45 125 25 133/83 91 Mechanical Ventilator 70 05/13/20 01:30 116 22 118/68 95 Mechanical Ventilator 70 20 01:15 111 21 146/46 96 Mechanical Ventilator 70 30/20 01:00 105 20 105/58 97 Mechanical Ventilator 70 30/20 01:00 20 105/58 Mechanical Ventilator 70 30/20 00:50 107 25 70 730/20 00:45 100 19 93/47 98 Mechanical Ventilator 70 05/13/20 00:30 100 20 94/47 97 Mechanical Ventilator 70 05/13/20 00:15 98 19 89/53 98 Mechanical Ventilator 70 05/13/20 00:05 98 20 89/50 97 Mechanical Ventilator 70 05/13/20 00:00 Endotracheal Tube 05/13/20 00:00 20 89/53 Mechanical Ventilator 70 05/13/20 00:00 97.1 98 20 84/50 97 Mechanical Ventilator 70 05/12/20 23:45 98 20 92/49 99 Mechanical Ventilator 70 05/12/20 23:32 96 05/12/20 23:30 100 19 94/53 97 Mechanical Ventilator 70 05/12/20 23:15 21 79/51 Mechanical Ventilator 70 05/12/20 23:15 98 21 86/46 98 Mechanical Ventilator 85 05/12/20 23:00 99 21 80/49 97 Mechanical Ventilator 85 05/12/20 23:00 20 84/51 Mechanical Ventilator 70 05/12/20 22:49 98 20 70 05/12/20 22:45 97 23 93/50 100 Mechanical Ventilator 85 05/12/20 22:30 98 19 81/48 100 Mechanical Ventilator 85 05/12/20 22:15 98 20 84/50 100 Mechanical Ventilator 85 05/12/20 22:04 99 20 87/45 100 Mechanical Ventilator 85 05/12/20 22:00 20 80/48 Mechanical Ventilator 80 05/12/20 22:00 100 20 80/48 100 Mechanical Ventilator 85 05/12/20 21:45 103 21 88/52 100 Mechanical Ventilator 85 05/12/20 21:30 103 19 90/54 100 Mechanical Ventilator 85 05/12/20 21:15 111 20 103/65 100 Mechanical Ventilator 85 05/12/20 21:00 124 23 85 05/12/20 21:00 19 134/58 Mechanical Ventilator 80 05/12/20 21:00 124 16 100 Mechanical Ventilator 85 05/12/20 20:45 126 18 129/77 100 Mechanical Ventilator 85 05/12/20 20:30 128 116/80 7 20:30 128 18 128/69 99 Mechanical Ventilator 85 05/12/20 20:20 18 116/80 Mechanical Ventilator 80 20 20:15 129 19 116/80 98 Mechanical Ventilator 85 05/12/20 20:00 Endotracheal Tube 05/12/20 20:00 97.1 129 20 137/67 99 Mechanical Ventilator 85 05/12/20 20:00 19 137/67 Mechanical Ventilator 80 05/12/20 20:00 80 05/12/20 19:17 127 05/12/20 19:00 19 128/68 Endotracheal Tube 85 05/12/20 19:00 134 19 128/68 97 Mechanical Ventilator 85 05/12/20 18:49 132 22 85 05/12/20 18:30 134 22 135/80 98 Mechanical Ventilator 85 05/12/20 18:00 133 24 150/83 99 Mechanical Ventilator 85 05/12/20 18:00 24 150/83 Endotracheal Tube 85 05/12/20 17:36 21 109/50 Endotracheal Tube 15.0 85 05/12/20 17:35 119 05/12/20 17:30 120 19 132/71 99 Mechanical Ventilator 85 05/12/20 17:02 112 21 85 05/12/20 17:00 18 109/50 Endotracheal Tube 85 05/12/20 17:00 109 20 109/50 100 Mechanical Ventilator 85 05/12/20 16:45 110 19 94/60 100 Mechanical Ventilator 100 05/12/20 16:30 113 19 92/61 100 Mechanical Ventilator 100 05/12/20 16:00 Endotracheal Tube 05/12/20 16:00 97.0 119 19 111/64 100 Mechanical Ventilator 100 05/12/20 16:00 19 111/64 Endotracheal Tube 100 05/12/20 16:00 117 05/12/20 16:00 100 05/12/20 15:53 129 21 100 Mechanical Ventilator 100 05/12/20 15:45 126 19 126/61 100 Mechanical Ventilator 100 05/12/20 15:30 126 21 114/67 100 Mechanical Ventilator 100 05/12/20 15:05 129 21 100 05/12/20 15:00 135 22 140/77 100 Mechanical Ventilator 100 05/12/20 15:00 22 140/77 Endotracheal Tube 100 05/12/20 14:45 133 23 91 Mechanical Ventilator 100 05/12/20 14:30 127 22 136/53 93 Mechanical Ventilator 100 05/12/20 14:15 130 21 105/65 95 Mechanical Ventilator 100 05/12/20 14:03 128 29 100 05/12/20 14:00 23 151/53 Endotracheal Tube 100 05/12/20 14:00 132 23 151/53 94 Mechanical Ventilator 100 05/12/20 13:30 128 25 130/67 96 Mechanical Ventilator 90 05/12/20 13:25 107 22 90 05/12/20 13:00 19 110/44 Endotracheal Tube 90 05/12/20 13:00 115 19 110/44 95 Mechanical Ventilator 90 05/12/20 12:00 97.1 106 19 94/49 99 Mechanical Ventilator 90 05/12/20 12:00 19 94/49 Endotracheal Tube 90 05/12/20 12:00 90 05/12/20 12:00 Endotracheal Tube 05/12/20 11:50 96 05/12/20 11:30 103 18 93/53 100 Mechanical Ventilator 90 Intake and Output 05/12/20 05/13/20 19:00 07:00 Intake Total 1546.39 ml 1370.9080 ml Output Total 965 ml 800 ml Balance 581.39 ml 570.9080 ml IV Total 1366.39 ml 850.9080 ml Tube Feeding 180 ml 520 ml Output Urine Total 965 ml 800 ml # Bowel Movements 2 Laboratory Tests 05/12/20 13:40: D-Dimer 4.83H 05/13/20 05:50: White Blood Count 21.1H, Red Blood Count 2.90L, Hemoglobin 9.0L, Hematocrit 28.2L, Mean Corpuscular Volume 97, Mean Corpuscular Hemoglobin 30.9, Mean Corpuscular Hemoglobin Concent 31.9L, Red Cell Distribution Width 13.1, Platelet Count 360, Mean Platelet Volume 7.8, Neutrophils (%) (Auto) , Lymphocytes (%) (Auto) , Monocytes (%) (Auto) , Eosinophils (%) (Auto) , Basophils (%) (Auto) , Differential Total Cells Counted 100, Neutrophils % ( Manual) 92H, Lymphocytes % (Manual) 3L, Monocytes % (Manual) 5, Eosinophils % ( Manual) 0, Basophils % (Manual) 0, Band Neutrophils 0, Platelet Estimate Adequate, Platelet Morphology Normal, Hypochromasia 1+, Sodium Level 144, Potassium Level 2.9L, Chloride Level 104, Carbon Dioxide Level 37H, Anion Gap 3L , Blood Urea Nitrogen 15, Creatinine 0.9, Estimat Glomerular Filtration Rate > 60, Glucose Level 137H, Calcium Level 8.2L, Phosphorus Level 3.2, Magnesium Level 2.0, Total Bilirubin 0.4, Aspartate Amino Transf (AST/SGOT) 19, Alanine Aminotransferase (ALT/SGPT) 26, Alkaline Phosphatase 64, Total Protein 5.2L, Albumin 1.4L, Globulin 3.8, Albumin/Globulin Ratio 0.4L, Random Amikacin Level [ Pending] 05/13/20 06:38: Arterial Blood pH 7.381, Arterial Blood Partial Pressure CO2 63.6*H, Arterial Blood Partial Pressure O2 97.7, Arterial Blood HCO3 36.9H, Arterial Blood Oxygen Saturation 96.8, Arterial Blood Base Excess 10.3*H, Nicolas Test Positive Height (Feet): 5 Height (Inches): 8.00 Weight (Pounds): 159 General Appearance: lethargic EENT: normal ENT inspection Neck: supple Cardiovascular: normal rate Respiratory/Chest: decreased breath sounds Abdomen: soft, hypoactive bowel sounds Extremities: non-tender Clarke Liu MD May 13, 2020 11:30
--- NOTE | 2020-05-13 12:02 | Diagnostic Imaging Report ---
Indication:Leg pain and swelling Technique: Grayscale and duplex Doppler imaging of the veins in both lower extremities performed in real time utilizing compression and augmentation. Comparison: Lower extremity venous Doppler study dated 03/03/2020 Findings: Duplex Doppler interrogation of the veins in both lower extremity is performed from the common femoral vein to the popliteal vein. Normal venous compressibility demonstrated throughout. No thrombus identified. Waveform analysis shows good respiratory phasicity and augmentation. IMPRESSION: No evidence of deep venous thrombosis involving the lower extremities.
--- NOTE | 2020-05-13 12:05 | Infectious Diseases Prog Note ---
Assessment/Plan Assessment: Septic Shock- off pressors now Pneumonia- COVID 19 neg x3(2 on same day) Acute hypoxic resp failure- s/p intubation 05/02 -05/12 CXR: Again demonstrated are extensive right greater than left bilateral infiltrates, probably unchanged allowing for differences in degree of rotation and exposure technique. -05/08 CXRL Increasing airspace opacities, worse in the right midlung. Increase in small right pleural effusion and probably small left pleural effusion. -05/07 Rapid COVID PCR neg -05/05 Bcx NTD -05/04 CXR: Dense consolidation of the right mid and lower lung, right pleural effusion are unchanged. Left lung and pleural space remain clear. -05/02 Sp cx PsA (pham S), E. aerogenes (R Ancef; otherwise S), MRSA -05/02 CXR: There is a moderately consolidating infiltrate in the right lower lobe consistent with pneumonia. Bcx neg x4 rapid COVID neg, COVI PCR neg - previously neg: -02/26 SARS-COV2 pCR neg; 02/28 SARS-COV 2 pcr neg Probable UTI -u/a wbc 10-15, nit neg, leul +2 ; ucx <10k ESBL. P. mirabilis (S Zosyn, meropenem) FEver (up to 105.3); improving (on cooling blanket) leukocytosis; increasing -05/10 u/a neg Bcx NGD sp cx GNR #1, #2 TOMSA; SP Recent Sepsis 2ry to ESBL K.pna bacteremia and Pneumonia 02/2020 -Bcx 3/4 ESBL K.pna (S Levo, Meropenem, ZOsyn); 03/01 Bcx Neg -sp cx ESBL K.pna -02/27 sp removal PICC Line; cath tip cx Neg muscle weakness and atrophy (not characterized) psychiatric disorder dysphagia s/p GT CT resident ( [facility]) Dementia seizure disorder Plan: -COntinue Meropenem #12/14 for UTI and PNA and IV Vancomycin #12/ for MRSA PNA -add empiric Micafungin #3 given rise in wbc -Empiric AMikacin #2 pending GNR sensi -05/05 SP Amikacin #4 -05/02 SP CEfepime x1 , Azithromycin x1 -f/u cx -Monitor CBC/CMP, temperatures -COVID19 neg x2; continue isolation until afebrile > 24 hrs -ICU/ETT/PEG care -f/u repeat cultures -Cdiff if diarrhea Thank you for consulting [facility]. Will continue to follow along with you. Joy troncoso RN. Subjective Allergies: Coded Allergies: DIPHENHYDRAMINE (Verified Allergy, Unknown, 02/27/20) afebrile >36hrs off pressors Fio2 down to 70% Objective Last 24 Hour Vital Signs Date Time Temp Pulse Resp B/P (MAP) Pulse Ox O2 Delivery O2 Flow Rate FiO2 05/13/20 10:42 111 27 70 05/13/20 10:35 108 05/13/20 10:30 106 14 108/79 98 Mechanical Ventilator 70 05/13/20 10:00 116 17 115/50 95 Mechanical Ventilator 70 05/13/20 09:30 115 15 117/59 94 Mechanical Ventilator 70 05/13/20 09:00 120 20 136/77 95 Mechanical Ventilator 70 05/13/20 08:54 119 123/68 05/13/20 08:42 129 24 70 05/13/20 08:30 124 20 124/56 95 Mechanical Ventilator 70 05/13/20 08:20 115 05/13/20 08:00 97.1 118 17 123/70 98 Mechanical Ventilator 70 05/13/20 08:00 70 05/13/20 07:30 118 17 123/70 98 Mechanical Ventilator 70 05/13/20 07:00 20 102/74 Mechanical Ventilator 70 05/13/20 07:00 111 20 102/74 96 Mechanical Ventilator 05/13/20 06:54 110 23 70 05/13/20 06:45 109 19 106/63 95 Mechanical Ventilator 70 05/13/20 06:37 77/39 05/13/20 06:30 105 20 05/13/20 06:30 104 20 77/39 100 Mechanical Ventilator 70 05/13/20 06:15 110 19 110/69 98 Mechanical Ventilator 70 05/13/20 06:00 20 72/57 Mechanical Ventilator 70 05/13/20 06:00 109 21 82/47 100 Mechanical Ventilator 70 05/13/20 05:58 110 20 72/57 100 Mechanical Ventilator 70 05/13/20 05:56 111 19 83/43 100 Mechanical Ventilator 70 05/13/20 05:45 114 17 89/43 99 Mechanical Ventilator 70 05/13/20 05:30 114 18 110/51 97 Mechanical Ventilator 70 05/13/20 05:15 111 18 106/52 98 Mechanical Ventilator 70 05/13/20 05:00 20 112/79 Mechanical Ventilator 70 05/13/20 05:00 109 19 112/79 98 Mechanical Ventilator 70 05/13/20 04:53 108 23 70 30 04:45 107 17 125/57 83 Mechanical Ventilator 70 05/13/20 04:30 109 17 132/67 92 Mechanical Ventilator 70 05/13/20 04:15 109 17 122/54 95 Mechanical Ventilator 70 05/13/20 04:00 70 05/13/20 04:00 98.1 112 17 134/72 92 Mechanical Ventilator 70 05/13/20 04:00 20 134/72 Mechanical Ventilator 70 05/13/20 04:00 Endotracheal Tube 05/13/20 03:45 113 17 127/55 91 Mechanical Ventilator 70 05/13/20 03:30 20 127/55 Mechanical Ventilator 70 05/13/20 03:30 118 20 118/49 94 Mechanical Ventilator 70 05/13/20 03:15 116 18 133/75 94 Mechanical Ventilator 70 05/13/20 03:01 118 05/13/20 03:00 20 127/77 Mechanical Ventilator 70 05/13/20 03:00 118 18 127/77 93 Mechanical Ventilator 70 05/13/20 02:50 121 23 70 05/13/20 02:45 121 18 124/81 89 Mechanical Ventilator 70 05/13/20 02:30 123 24 154/61 91 Mechanical Ventilator 70 05/13/20 02:23 20 119/57 Mechanical Ventilator 70 05/13/20 02:15 124 23 119/57 91 Mechanical Ventilator 70 05/13/20 02:00 127 25 144/42 92 Mechanical Ventilator 70 05/13/20 01:45 125 25 133/83 91 Mechanical Ventilator 70 05/13/20 01:30 116 22 118/68 95 Mechanical Ventilator 70 05/13/20 01:15 111 21 146/46 96 Mechanical Ventilator 70 05/13/20 01:00 105 20 105/58 97 Mechanical Ventilator 70 30 01:00 20 105/58 Mechanical Ventilator 70 30 00:50 107 25 70 05/13/20 00:45 100 19 93/47 98 Mechanical Ventilator 70 05/13/20 00:30 100 20 94/47 97 Mechanical Ventilator 70 05/13/20 00:15 98 19 89/53 98 Mechanical Ventilator 70 05/13/20 00:05 98 20 89/50 97 Mechanical Ventilator 70 05/13/20 00:00 Endotracheal Tube 05/13/20 00:00 20 89/53 Mechanical Ventilator 70 05/13/20 00:00 97.1 98 20 84/50 97 Mechanical Ventilator 70 05/12/20 23:45 98 20 92/49 99 Mechanical Ventilator 70 05/12/20 23:32 96 05/12/20 23:30 100 19 94/53 97 Mechanical Ventilator 70 05/12/20 23:15 21 79/51 Mechanical Ventilator 70 05/12/20 23:15 98 21 86/46 98 Mechanical Ventilator 85 05/12/20 23:00 99 21 80/49 97 Mechanical Ventilator 85 05/12/20 23:00 20 84/51 Mechanical Ventilator 70 05/12/20 22:49 98 20 70 05/12/20 22:45 97 23 93/50 100 Mechanical Ventilator 85 05/12/20 22:30 98 19 81/48 100 Mechanical Ventilator 85 05/12/20 22:15 98 20 84/50 100 Mechanical Ventilator 85 05/12/20 22:04 99 20 87/45 100 Mechanical Ventilator 85 05/12/20 22:00 20 80/48 Mechanical Ventilator 80 05/12/20 22:00 100 20 80/48 100 Mechanical Ventilator 85 05/12/20 21:45 103 21 88/52 100 Mechanical Ventilator 85 05/12/20 21:30 103 19 90/54 100 Mechanical Ventilator 85 05/12/20 21:15 111 20 103/65 100 Mechanical Ventilator 85 05/12/20 21:00 124 23 85 05/12/20 21:00 19 134/58 Mechanical Ventilator 80 05/12/20 21:00 124 16 100 Mechanical Ventilator 85 05/12/20 20:45 126 18 129/77 100 Mechanical Ventilator 85 05/12/20 20:30 128 116/80 7 20:30 128 18 128/69 99 Mechanical Ventilator 85 05/12/20 20:20 18 116/80 Mechanical Ventilator 80 20 20:15 129 19 116/80 98 Mechanical Ventilator 85 05/12/20 20:00 Endotracheal Tube 05/12/20 20:00 97.1 129 20 137/67 99 Mechanical Ventilator 85 05/12/20 20:00 19 137/67 Mechanical Ventilator 80 05/12/20 20:00 80 05/12/20 19:17 127 05/12/20 19:00 19 128/68 Endotracheal Tube 85 05/12/20 19:00 134 19 128/68 97 Mechanical Ventilator 85 05/12/20 18:49 132 22 85 05/12/20 18:30 134 22 135/80 98 Mechanical Ventilator 85 05/12/20 18:00 133 24 150/83 99 Mechanical Ventilator 85 05/12/20 18:00 24 150/83 Endotracheal Tube 85 05/12/20 17:36 21 109/50 Endotracheal Tube 15.0 85 05/12/20 17:35 119 05/12/20 17:30 120 19 132/71 99 Mechanical Ventilator 85 05/12/20 17:02 112 21 85 05/12/20 17:00 18 109/50 Endotracheal Tube 85 05/12/20 17:00 109 20 109/50 100 Mechanical Ventilator 85 05/12/20 16:45 110 19 94/60 100 Mechanical Ventilator 100 05/12/20 16:30 113 19 92/61 100 Mechanical Ventilator 100 05/12/20 16:00 Endotracheal Tube 05/12/20 16:00 97.0 119 19 111/64 100 Mechanical Ventilator 100 05/12/20 16:00 19 111/64 Endotracheal Tube 100 05/12/20 16:00 117 05/12/20 16:00 100 05/12/20 15:53 129 21 100 Mechanical Ventilator 100 05/12/20 15:45 126 19 126/61 100 Mechanical Ventilator 100 05/12/20 15:30 126 21 114/67 100 Mechanical Ventilator 100 05/12/20 15:05 129 21 100 05/12/20 15:00 135 22 140/77 100 Mechanical Ventilator 100 05/12/20 15:00 22 140/77 Endotracheal Tube 100 05/12/20 14:45 133 23 91 Mechanical Ventilator 100 05/12/20 14:30 127 22 136/53 93 Mechanical Ventilator 100 05/12/20 14:15 130 21 105/65 95 Mechanical Ventilator 100 05/12/20 14:03 128 29 100 05/12/20 14:00 23 151/53 Endotracheal Tube 100 05/12/20 14:00 132 23 151/53 94 Mechanical Ventilator 100 05/12/20 13:30 128 25 130/67 96 Mechanical Ventilator 90 05/12/20 13:25 107 22 90 05/12/20 13:00 19 110/44 Endotracheal Tube 90 05/12/20 13:00 115 19 110/44 95 Mechanical Ventilator 90 Height (Feet): 5 Height (Inches): 8.00 Weight (Pounds): 159 NECK: Supple. No lymphadenopathy. CHEST: Mech Vent; Decreased breath sounds bilaterally without rales. CARDIOVASCULAR: Tachycardic, regular rhythm. S1 and S2 are normal without murmurs, rubs, or gallops. ABDOMEN: Soft, nontender, and nondistended. Positive bowel sounds. No evidence of hepatosplenomegaly. Currently, no rebound or guarding noted. EXTREMITIES: Negative for clubbing, cyanosis, or edema. Microbiology Date/Time Source Procedure Growth Status 05/10/20 15:45 Blood Blood Culture - Preliminary NO GROWTH AFTER 48 HOURS Resulted 05/10/20 15:30 Blood Blood Culture - Preliminary NO GROWTH AFTER 48 HOURS Resulted Laboratory Tests Test 05/12/20 13:40 05/13/20 05:50 05/13/20 06:38 D-Dimer 4.83 mg/L FEU (0.00-0.49) H White Blood Count 21.1 K/UL (4.8-10.8) H Red Blood Count 2.90 M/UL (4.70-6.10) L Hemoglobin 9.0 G/DL (14.2-18.0) L Hematocrit 28.2 % (42.0-52.0) L Mean Corpuscular Volume 97 FL (80-99) Mean Corpuscular Hemoglobin 30.9 PG (27.0-31.0) Mean Corpuscular Hemoglobin Concent 31.9 G/DL (32.0-36.0) L Red Cell Distribution Width 13.1 % (11.6-14.8) Platelet Count 360 K/UL (150-450) Mean Platelet Volume 7.8 FL (6.5-10.1) Neutrophils (%) (Auto) % (45.0-75.0) Lymphocytes (%) (Auto) % (20.0-45.0) Monocytes (%) (Auto) % (1.0-10.0) Eosinophils (%) (Auto) % (0.0-3.0) Basophils (%) (Auto) % (0.0-2.0) Differential Total Cells Counted 100 Neutrophils % (Manual) 92 % (45-75) H Lymphocytes % (Manual) 3 % (20-45) L Monocytes % (Manual) 5 % (1-10) Eosinophils % (Manual) 0 % (0-3) Basophils % (Manual) 0 % (0-2) Band Neutrophils 0 % (0-8) Platelet Estimate Adequate Platelet Morphology Normal Hypochromasia 1+ Sodium Level 144 MMOL/L (136-145) Potassium Level 2.9 MMOL/L (3.5-5.1) L Chloride Level 104 MMOL/L (98-107) Carbon Dioxide Level 37 MMOL/L (21-32) H Anion Gap 3 mmol/L (5-15) L Blood Urea Nitrogen 15 mg/dL (7-18) Creatinine 0.9 MG/DL (0.55-1.30) Estimat Glomerular Filtration Rate > 60 mL/min (>60) Glucose Level 137 MG/DL (74-106) H Calcium Level 8.2 MG/DL (8.5-10.1) L Phosphorus Level 3.2 MG/DL (2.5-4.9) Magnesium Level 2.0 MG/DL (1.8-2.4) Total Bilirubin 0.4 MG/DL (0.2-1.0) Aspartate Amino Transf (AST/SGOT) 19 U/L (15-37) Alanine Aminotransferase (ALT/SGPT) 26 U/L (12-78) Alkaline Phosphatase 64 U/L (46-116) Total Protein 5.2 G/DL (6.4-8.2) L Albumin 1.4 G/DL (3.4-5.0) L Globulin 3.8 g/dL Albumin/Globulin Ratio 0.4 (1.0-2.7) L Random Amikacin Level Pending Arterial Blood pH 7.381 (7.350-7.450) Arterial Blood Partial Pressure CO2 63.6 mmHg (35.0-45.0) *H Arterial Blood Partial Pressure O2 97.7 mmHg (75.0-100.0) Arterial Blood HCO3 36.9 mmol/L (22.0-26.0) H Arterial Blood Oxygen Saturation 96.8 % (95-100) Arterial Blood Base Excess 10.3 (-2-2) *H Nicolas Test Positive Current Medications Medications (Trade) Dose Ordered Sig/Damion Route PRN Reason Start Time Stop Time Status Last Admin Dose Admin Acetaminophen (Tylenol) 650 mg Q4H PRN GT fever 05/02/20 12:45 06/01/20 12:44 05/11/20 19:56 Amikacin Protocol (Amikacin pharmacy to dose) 1 ea DAILY PRN MISC Per rx protocol 05/12/20 16:15 06/11/20 16:14 Amikacin Sulfate 1000 mg/Sodium Chloride 114 ml @ 114 mls/hr Q24H IV 05/12/20 18:00 05/19/20 17:59 05/12/20 17:35 Aspirin (ASA) 81 mg DAILY GT 05/05/20 09:00 06/19/20 08:59 05/13/20 08:55 Chlorhexidine Gluconate (Marci-Hex 2%) 1 applic DAILY@2000 TOPIC 05/03/20 20:00 08/01/20 19:59 05/12/20 19:56 Digoxin (Lanoxin) 0.125 mg DAILY GT 05/14/20 09:00 08/12/20 08:59 Docusate Sodium (Colace) 100 mg EVERY 12 HOURS GT 05/10/20 21:00 06/09/20 20:59 05/12/20 20:29 Fentanyl Citrate 250 ml @ 0 mls/hr Q24H IV 05/03/20 22:03 08/01/20 22:02 05/13/20 02:23 Furosemide (Lasix) 40 mg EVERY 12 HOURS IV 05/10/20 09:00 06/09/20 08:59 05/13/20 08:54 Heparin Sodium (Porcine) (Heparin 5000 units/ml) 5,000 units EVERY 12 HOURS SUBQ 05/02/20 21:00 06/16/20 20:59 05/13/20 08:56 Iron Sucrose 100 mg/Sodium Chloride 60 ml @ 240 mls/hr BEDTIME IV 05/10/20 21:00 05/14/20 21:14 05/12/20 20:33 Levetiracetam (Keppra) 700 mg Q12HR GT 05/02/20 21:00 06/01/20 20:59 05/13/20 08:55 Lorazepam (Ativan 2mg/ml 1ml) 2 mg Q4H PRN IV For Anxiety/seizures 05/10/20 12:45 05/17/20 12:44 05/11/20 19:56 Meropenem 1 gm/ Sodium Chloride 55 ml @ 110 mls/hr Q8HR IVPB 05/02/20 15:00 05/16/20 23:59 05/13/20 05:13 Metoclopramide HCl (Reglan) 5 mg EVERY 6 HOURS GT 05/13/20 12:00 06/12/20 11:59 Metoprolol Tartrate (Lopressor) 25 mg Q12HR GT 05/10/20 21:00 08/08/20 08:59 05/13/20 08:54 Micafungin Sodium 100 mg/Sodium Chloride 110 ml @ 110 mls/hr Q24H IVPB 05/11/20 12:00 05/18/20 11:59 05/12/20 11:33 Midodrine (Pro-Amatine) 10 mg Q8HR GT 05/04/20 22:00 08/02/20 21:59 05/13/20 05:13 Ondansetron HCl (Zofran) 4 mg Q6H PRN IVP Nausea & Vomiting 05/02/20 12:45 06/01/20 12:44 Pantoprazole (Protonix) 40 mg DAILY IVP 05/10/20 09:00 06/09/20 08:59 05/13/20 08:54 Polyethylene Glycol (Miralax) 17 gm DAILYPRN PRN GT Constipation 05/02/20 12:45 06/01/20 12:44 Potassium Chloride 50 meq/ Sodium Chloride 575 ml @ 100 mls/hr ONCE ONCE IVPB 05/13/20 08:00 05/13/20 13:44 05/13/20 08:55 Potassium Chloride (K-Dur) 40 meq TWICE A DAY GT 05/12/20 18:00 08/10/20 17:59 05/13/20 08:55 Vancomycin HCl (Vanco pharmacy to dose) 1 ea DAILY PRN MISC Per rx protocol 05/05/20 09:45 06/04/20 09:44 Vancomycin HCl 750 mg/Sodium Chloride 275 ml @ 183.333 mls/hr Q12H IVPB 05/12/20 22:00 8/3/20 21:59 05/13/20 10:36 Charlene Stokes M.D. May 13, 2020 12:05
[2020-05-13] MEDS: Metoclopramide 10mg/10ml Liq GT SCH ×3 (13:05→23:30)
[2020-05-13] MEDS: Micafungin 100 MG in NS 110 ML IVPB SCH (13:05)
[2020-05-13] MEDS: LORazepam Inj 2mg/ml 1ml IV PRN (17:23)
--- NOTE | 2020-05-13 18:11 | Internal Med Progress Note ---
Subjective Date of Service: May 13, 2020 Physician Name AmeliaObey Attending Physician Marky Go MD Current Medications Medications (Trade) Dose Ordered Sig/Damion Route PRN Reason Start Time Stop Time Status Last Admin Dose Admin Acetaminophen (Tylenol) 650 mg Q4H PRN GT fever 05/02/20 12:45 06/01/20 12:44 05/11/20 19:56 Amikacin Protocol (Amikacin pharmacy to dose) 1 ea DAILY PRN MISC Per rx protocol 05/12/20 16:15 06/11/20 16:14 Amikacin Sulfate 1000 mg/Sodium Chloride 114 ml @ 114 mls/hr Q36H IV 05/14/20 06:00 05/21/20 05:59 Aspirin (ASA) 81 mg DAILY GT 05/05/20 09:00 06/19/20 08:59 05/13/20 08:55 Chlorhexidine Gluconate (Marci-Hex 2%) 1 applic DAILY@2000 TOPIC 05/03/20 20:00 08/01/20 19:59 05/12/20 19:56 Digoxin (Lanoxin) 0.125 mg DAILY GT 05/14/20 09:00 08/12/20 08:59 Docusate Sodium (Colace) 100 mg EVERY 12 HOURS GT 05/10/20 21:00 06/09/20 20:59 05/12/20 20:29 Fentanyl Citrate 250 ml @ 0 mls/hr Q24H IV 05/03/20 22:03 08/01/20 22:02 05/13/20 13:07 Furosemide (Lasix) 40 mg EVERY 12 HOURS IV 05/10/20 09:00 06/09/20 08:59 05/13/20 08:54 Heparin Sodium (Porcine) (Heparin 5000 units/ml) 5,000 units EVERY 12 HOURS SUBQ 05/02/20 21:00 06/16/20 20:59 05/13/20 08:56 Iron Sucrose 100 mg/Sodium Chloride 60 ml @ 240 mls/hr BEDTIME IV 05/10/20 21:00 05/14/20 21:14 05/12/20 20:33 Levetiracetam (Keppra) 700 mg Q12HR GT 05/02/20 21:00 06/01/20 20:59 05/13/20 08:55 Lorazepam (Ativan 2mg/ml 1ml) 2 mg Q4H PRN IV For Anxiety/seizures 05/10/20 12:45 05/17/20 12:44 05/13/20 17:23 Meropenem 1 gm/ Sodium Chloride 55 ml @ 110 mls/hr Q8HR IVPB 05/02/20 15:00 05/16/20 23:59 05/13/20 14:51 Metoclopramide HCl (Reglan) 5 mg EVERY 6 HOURS GT 05/13/20 12:00 06/12/20 11:59 05/13/20 17:24 Metoprolol Tartrate (Lopressor) 25 mg Q12HR GT 05/10/20 21:00 08/08/20 08:59 05/13/20 08:54 Micafungin Sodium 100 mg/Sodium Chloride 110 ml @ 110 mls/hr Q24H IVPB 05/11/20 12:00 05/18/20 11:59 05/13/20 13:05 Midodrine (Pro-Amatine) 10 mg Q8HR GT 05/04/20 22:00 08/02/20 21:59 05/13/20 13:05 Ondansetron HCl (Zofran) 4 mg Q6H PRN IVP Nausea & Vomiting 05/02/20 12:45 06/01/20 12:44 Pantoprazole (Protonix) 40 mg DAILY IVP 05/10/20 09:00 06/09/20 08:59 05/13/20 08:54 Polyethylene Glycol (Miralax) 17 gm DAILYPRN PRN GT Constipation 05/02/20 12:45 06/01/20 12:44 Potassium Chloride (K-Dur) 40 meq TWICE A DAY GT 05/12/20 18:00 08/10/20 17:59 05/13/20 17:24 Vancomycin HCl (Vanco pharmacy to dose) 1 ea DAILY PRN MISC Per rx protocol 05/05/20 09:45 06/04/20 09:44 Vancomycin HCl 750 mg/Sodium Chloride 275 ml @ 183.333 mls/hr Q12H IVPB 05/12/20 22:00 05/17/20 21:59 05/13/20 10:36 Allergies: Coded Allergies: DIPHENHYDRAMINE (Verified Allergy, Unknown, 02/27/20) ROS Limited/Unobtainable: Yes Subjective 59 YO M admitted with respiratory failure. Now pneumonia. Intubated and sedated. Cover for Int Med-Dr Go. ICU. On pressors Objective Last Vital Signs Date Time Temp Pulse Resp B/P (MAP) Pulse Ox O2 Delivery O2 Flow Rate FiO2 05/13/20 18:02 114 21 94/57 99 Mechanical Ventilator 70 05/13/20 16:00 99.0 05/12/20 17:36 15.0 Laboratory Tests Test 05/13/20 05:50 05/13/20 06:38 White Blood Count 21.1 K/UL (4.8-10.8) H Red Blood Count 2.90 M/UL (4.70-6.10) L Hemoglobin 9.0 G/DL (14.2-18.0) L Hematocrit 28.2 % (42.0-52.0) L Mean Corpuscular Volume 97 FL (80-99) Mean Corpuscular Hemoglobin 30.9 PG (27.0-31.0) Mean Corpuscular Hemoglobin Concent 31.9 G/DL (32.0-36.0) L Red Cell Distribution Width 13.1 % (11.6-14.8) Platelet Count 360 K/UL (150-450) Mean Platelet Volume 7.8 FL (6.5-10.1) Neutrophils (%) (Auto) % (45.0-75.0) Lymphocytes (%) (Auto) % (20.0-45.0) Monocytes (%) (Auto) % (1.0-10.0) Eosinophils (%) (Auto) % (0.0-3.0) Basophils (%) (Auto) % (0.0-2.0) Differential Total Cells Counted 100 Neutrophils % (Manual) 92 % (45-75) H Lymphocytes % (Manual) 3 % (20-45) L Monocytes % (Manual) 5 % (1-10) Eosinophils % (Manual) 0 % (0-3) Basophils % (Manual) 0 % (0-2) Band Neutrophils 0 % (0-8) Platelet Estimate Adequate Platelet Morphology Normal Hypochromasia 1+ Sodium Level 144 MMOL/L (136-145) Potassium Level 2.9 MMOL/L (3.5-5.1) L Chloride Level 104 MMOL/L (98-107) Carbon Dioxide Level 37 MMOL/L (21-32) H Anion Gap 3 mmol/L (5-15) L Blood Urea Nitrogen 15 mg/dL (7-18) Creatinine 0.9 MG/DL (0.55-1.30) Estimat Glomerular Filtration Rate > 60 mL/min (>60) Glucose Level 137 MG/DL (74-106) H Calcium Level 8.2 MG/DL (8.5-10.1) L Phosphorus Level 3.2 MG/DL (2.5-4.9) Magnesium Level 2.0 MG/DL (1.8-2.4) Total Bilirubin 0.4 MG/DL (0.2-1.0) Aspartate Amino Transf (AST/SGOT) 19 U/L (15-37) Alanine Aminotransferase (ALT/SGPT) 26 U/L (12-78) Alkaline Phosphatase 64 U/L (46-116) Total Protein 5.2 G/DL (6.4-8.2) L Albumin 1.4 G/DL (3.4-5.0) L Globulin 3.8 g/dL Albumin/Globulin Ratio 0.4 (1.0-2.7) L Random Amikacin Level 10.8 MG/L Arterial Blood pH 7.381 (7.350-7.450) Arterial Blood Partial Pressure CO2 63.6 mmHg (35.0-45.0) *H Arterial Blood Partial Pressure O2 97.7 mmHg (75.0-100.0) Arterial Blood HCO3 36.9 mmol/L (22.0-26.0) H Arterial Blood Oxygen Saturation 96.8 % (95-100) Arterial Blood Base Excess 10.3 (-2-2) *H Nicolas Test Positive Intake and Output 05/12/20 05/13/20 19:00 07:00 Intake Total 1546.39 ml 1370.9080 ml Output Total 965 ml 800 ml Balance 581.39 ml 570.9080 ml IV Total 1366.39 ml 850.9080 ml Tube Feeding 180 ml 520 ml Output Urine Total 965 ml 800 ml # Bowel Movements 2 Objective PHYSICAL EXAMINATION: GENERAL: The patient is a thin-appearing male, in severe respiratory distress. HEENT: Eyes, pupils equal and responsive to light and accommodation. Extraocular movements are intact. NECK: Supple. No lymphadenopathy. CHEST: Mech Vent; Decreased breath sounds bilaterally without rales. CARDIOVASCULAR: Tachycardic, regular rhythm. S1 and S2 are normal without murmurs, rubs, or gallops. ABDOMEN: Soft, nontender, and nondistended. Positive bowel sounds. No evidence of hepatosplenomegaly. Currently, no rebound or guarding noted. EXTREMITIES: Negative for clubbing, cyanosis, or edema. RECTAL/GENITAL: Not performed. NEUROLOGICAL: Unable to assess Assessment/Plan Assessment/Plan ASSESSMENT: This is a 59-year-old male. 1. Shortness of breath. 2. Hypoxia. 3. Right lower lobe pneumonia=enterobacter, pseudamonas, and staph aureus 4. Acute respiratory failure. 5. History of cerebrovascular accident. 6. Seizure disorder. 7. Functional quadriplegia. 8. Schizophrenia. 9. Dysphagia. 10. Urinary tract infection=proteus mirabilis 11. Sinus Tachycardia 12.Inceased tube feed residuals TREATMENT: 1. Respiratory failure/pneumonia. Intubated; A pulmonary consultation has been obtained with Dr. Ana Maria Hansen. Antibiotics= vancomycin and mycofungin. ID=Dr Stokes 2. Seizure disorder. Continue Keppra, Depakote as above. 3. Functional quadriplegia. 4. Schizophrenia. Continue Risperdal as above. 5. Dysphagia. The patient is status post PEG. 6. Cardiology=Dr Diaz 7. GI=Obey Stahl MD May 13, 2020 18:11
[2020-05-13] MEDS: Dyna-Hex 2% Top Sol 2oz TOPIC SCH (19:49)
[2020-05-13] MEDS: Iron Sucrose 100 MG in NS 55 ML IV SCH (20:41)
[2020-05-14] VITALS (53 sets, daily range): BP systolic 70–160; BP diastolic 38–111
[2020-05-14] MEDS: fentaNYL 2500mcg/NS 250ml 250 ML IV SCH ×3 (01:59→23:22)
[2020-05-14 04:44] LABS: HEMATOCRIT 28.7 % (42.0-52.0); HEMOGLOBIN 9.1 G/DL (14.2-18.0); MEAN CORPUSCULAR VOLUME 97 FL (80-99); PLATELET COUNT 371 K/UL (150-450); RED BLOOD COUNT 2.96 M/UL (4.70-6.10); RED CELL DISTRIBUTION WIDTH 13.6 % (11.6-14.8); WHITE BLOOD COUNT 16.3 K/UL (4.8-10.8)
[2020-05-14 04:54] LABS: PHOSPHORUS 2.2 MG/DL (2.5-4.9)
[2020-05-14 05:10] LABS: ALANINE AMINOTRANSFERASE 24 U/L (12-78); ALBUMIN 1.5 G/DL (3.4-5.0); ALBUMIN/GLOBULIN RATIO 0.4 (1.0-2.7); ALKALINE PHOSPHATASE 67 U/L (46-116); ANION GAP 4 mmol/L (5-15); ASPARTATE AMINO TRANSFERASE 18 U/L (15-37); BILIRUBIN,TOTAL 0.6 MG/DL (0.2-1.0); BLOOD UREA NITROGEN 18 mg/dL (7-18); CALCIUM 8.7 MG/DL (8.5-10.1); CARBON DIOXIDE 39 MMOL/L (21-32); CHLORIDE 103 MMOL/L (98-107); CREATININE 0.9 MG/DL (0.55-1.30); POTASSIUM 3.3 MMOL/L (3.5-5.1); SODIUM 146 MMOL/L (136-145)
[2020-05-14] MEDS: Midodrine 10mg tab GT SCH ×3 (05:33→21:37)
[2020-05-14] MEDS: Metoclopramide 10mg/10ml Liq GT SCH ×4 (05:33→23:23)
[2020-05-14] MEDS: Amikacin 1,000 MG in NS 110 ML IV SCH (05:34)
[2020-05-14] MEDS: Meropenem 1 GM in NS 55 ML IVPB SCH ×3 (05:34→21:37)
[2020-05-14] MEDS: Aspirin Baby 81mg GT SCH (08:40)
[2020-05-14] MEDS: Digoxin 0.125mg tab GT SCH (08:41)
[2020-05-14] MEDS: Pantoprazole Inj IVP SCH (08:41)
[2020-05-14] MEDS: Docusate 100mg/10ml Liq GT SCH ×2 (08:41→20:35)
[2020-05-14] MEDS: Heparin 5000 units/ml inj SUBQ SCH ×2 (08:42→20:35)
[2020-05-14] MEDS: levETIRAcetam 500mg/5ml Liquid GT SCH ×2 (08:42→20:33)
--- NOTE | 2020-05-14 09:36 | Cardiac Electrophysiology PN ---
Assessment/Plan Assessment/Plan 1. Sinus tachycardia with no evidence of atrial fibrillation or SVT due to sepsis and pneumonia. His echocardiogram showed ejection fraction of 55%. On Dig 0.125 and Lopressor 25 bid for atrial fib 2. Respiratory failure, currently on the ventilator and iv Abx. Has thick secretions Echocardiogram showed normal left ventricular systolic function but brain natriuretic peptide is almost 4000. Continue Lasix 40 iv bid. 3. History of seizure disorder. 4. Dysphagia, status post PEG placement. 5. COPD, nosocomial pneumonia. 6. History of CVA. JEANNA RN Subjective Subjective In ICU on the Vent on fentanyl drip and off Levophed. Fio2 70%.Sinus tach 120- 130s Objective Last 24 Hour Vital Signs Date Time Temp Pulse Resp B/P (MAP) Pulse Ox O2 Delivery O2 Flow Rate FiO2 05/14/20 09:00 114 24 94/54 99 Mechanical Ventilator 60 05/14/20 08:41 129 05/14/20 08:40 129 131/63 05/14/20 08:40 128 25 70 05/14/20 08:30 128 26 156/82 96 Mechanical Ventilator 70 05/14/20 08:00 98.6 115 24 111/77 100 Mechanical Ventilator 70 05/14/20 08:00 114 05/14/20 07:39 Mechanical Ventilator 05/14/20 07:38 70 05/14/20 07:30 98.4 114 17 121/84 100 Mechanical Ventilator 70 05/14/20 07:00 119 24 132/84 100 Mechanical Ventilator 70 05/14/20 07:00 24 132/54 Mechanical Ventilator 70 05/14/20 06:49 118 22 70 05/14/20 06:30 117 24 05/14/20 06:30 117 24 150/71 100 Mechanical Ventilator 70 05/14/20 06:00 25 158/86 Mechanical Ventilator 70 05/14/20 06:00 119 25 158/86 100 Mechanical Ventilator 05/14/20 05:30 122 27 160/97 100 Mechanical Ventilator 70 05/14/20 05:00 28 154/87 Mechanical Ventilator 70 05/14/20 05:00 121 28 152/87 100 Mechanical Ventilator 70 05/14/20 04:51 124 29 70 05/14/20 04:45 124 26 138/96 100 Mechanical Ventilator 70 05/14/20 04:30 124 26 138/96 100 Mechanical Ventilator 70 05/14/20 04:00 122 05/14/20 04:00 70 05/14/20 04:00 28 136/81 Mechanical Ventilator 70 05/14/20 04:00 98.7 122 28 136/81 98 Mechanical Ventilator 70 05/14/20 04:00 Endotracheal Tube 05/14/20 03:30 128 31 145/111 99 Mechanical Ventilator 70 05/14/20 03:10 127 35 70 05/14/20 03:00 33 145/84 Mechanical Ventilator 30 05/14/20 03:00 129 33 145/84 97 Mechanical Ventilator 70 05/14/20 02:30 125 30 130/88 96 Mechanical Ventilator 70 05/14/20 02:00 127 27 127/74 91 Mechanical Ventilator 60 05/14/20 02:00 27 127/74 Mechanical Ventilator 60 05/14/20 01:59 20 142/74 Mechanical Ventilator 60 05/14/20 01:30 122 23 125/72 93 Mechanical Ventilator 60 05/14/20 01:00 112 21 111/54 97 Mechanical Ventilator 60 05/14/20 01:00 21 111/54 Mechanical Ventilator 60 05/14/20 00:52 108 23 60 05/14/20 00:45 110 22 95/51 99 Mechanical Ventilator 60 05/14/20 00:30 104 20 89/54 100 Mechanical Ventilator 60 05/14/20 00:22 99 18 88/61 100 Mechanical Ventilator 60 05/14/20 00:20 99 20 70/41 100 Mechanical Ventilator 60 05/14/20 00:00 60 05/14/20 00:00 99.8 100 20 92/71 100 Mechanical Ventilator 60 05/14/20 00:00 20 92/71 Mechanical Ventilator 60 05/14/20 00:00 100 05/14/20 00:00 Endotracheal Tube 05/13/20 23:30 100 19 90/61 100 Mechanical Ventilator 60 05/13/20 23:15 96 22 60 05/13/20 23:00 97 19 100/56 100 Mechanical Ventilator 70 05/13/20 23:00 19 100/56 Mechanical Ventilator 70 05/13/20 22:30 104 20 119/72 100 Mechanical Ventilator 70 05/13/20 22:00 113 22 117/66 100 Mechanical Ventilator 70 05/13/20 22:00 22 117/66 Mechanical Ventilator 70 05/13/20 21:30 118 19 120/59 100 Mechanical Ventilator 70 7/30/20 21:20 122 22 70 05/13/20 21:00 17 122/90 Mechanical Ventilator 70 05/13/20 21:00 123 17 122/90 100 Mechanical Ventilator 70 20 20:41 124 129/69 05/13/20 20:37 124 19 129/69 100 Mechanical Ventilator 70 05/13/20 20:30 126 18 112/78 98 Mechanical Ventilator 70 05/13/20 20:15 126 18 135/88 98 Mechanical Ventilator 70 05/13/20 20:00 98.7 120 17 124/65 98 Mechanical Ventilator 70 05/13/20 20:00 17 124/65 Mechanical Ventilator 70 20 20:00 Endotracheal Tube 05/13/20 20:00 70 05/13/20 19:30 121 19 120/55 98 Mechanical Ventilator 70 05/13/20 19:08 116 26 70 05/13/20 19:07 116 05/13/20 19:00 119 19 106/65 99 Mechanical Ventilator 70 05/13/20 18:28 108 21 84/50 99 Mechanical Ventilator 70 05/13/20 18:02 114 21 94/57 99 Mechanical Ventilator 70 05/13/20 17:30 115 29 115/67 99 Mechanical Ventilator 70 05/13/20 17:01 124 27 70 05/13/20 17:00 129 29 161/82 99 Mechanical Ventilator 70 05/13/20 16:30 124 25 124/88 97 Mechanical Ventilator 70 05/13/20 16:00 99.0 132 26 136/75 100 Mechanical Ventilator 70 05/13/20 16:00 133 05/13/20 16:00 70 05/13/20 16:00 Endotracheal Tube 05/13/20 15:30 133 25 143/84 97 Mechanical Ventilator 70 05/13/20 15:19 134 25 70 05/13/20 15:00 128 17 136/88 100 Mechanical Ventilator 70 05/13/20 14:30 120 17 125/71 100 Mechanical Ventilator 70 05/13/20 14:02 111 17 80/48 100 Mechanical Ventilator 70 05/13/20 13:30 112 15 107/70 100 Mechanical Ventilator 70 05/13/ 13:07 25 133/75 Mechanical Ventilator 70 20 13:00 114 15 133/75 98 Mechanical Ventilator 70 05/13/20 12:57 115 24 70 05/13/20 12:30 110 15 120/57 98 Mechanical Ventilator 70 05/13/20 12:00 70 05/13/20 12:00 98.0 112 17 119/83 96 Mechanical Ventilator 70 05/13/20 12:00 118 05/13/20 12:00 Endotracheal Tube 05/13/20 11:30 110 15 120/57 98 Mechanical Ventilator 70 05/13/20 11:00 108 14 119/68 98 Mechanical Ventilator 70 05/13/20 10:42 111 27 70 05/13/20 10:35 108 05/13/20 10:30 106 14 108/79 98 Mechanical Ventilator 70 05/13/20 10:00 116 17 115/50 95 Mechanical Ventilator 70 Intake and Output 05/13/20 05/14/20 19:00 07:00 Intake Total 2175.0 ml 1188 ml Output Total 2350 ml 3500 ml Balance -175.0 ml -2312 ml Intake Free Water 50 ml IV Total 1355.0 ml 788 ml Tube Feeding 720 ml 210 ml Other 50 ml 190 ml Output Urine Total 2350 ml 3500 ml # Bowel Movements 2 Laboratory Tests Test 05/14/20 03:50 05/14/20 06:45 05/14/20 09:00 White Blood Count 16.3 K/UL (4.8-10.8) H Red Blood Count 2.96 M/UL (4.70-6.10) L Hemoglobin 9.1 G/DL (14.2-18.0) L Hematocrit 28.7 % (42.0-52.0) L Mean Corpuscular Volume 97 FL (80-99) Mean Corpuscular Hemoglobin 30.8 PG (27.0-31.0) Mean Corpuscular Hemoglobin Concent 31.7 G/DL (32.0-36.0) L Red Cell Distribution Width 13.6 % (11.6-14.8) Platelet Count 371 K/UL (150-450) Mean Platelet Volume 7.8 FL (6.5-10.1) Neutrophils (%) (Auto) % (45.0-75.0) Lymphocytes (%) (Auto) % (20.0-45.0) Monocytes (%) (Auto) % (1.0-10.0) Eosinophils (%) (Auto) % (0.0-3.0) Basophils (%) (Auto) % (0.0-2.0) Neutrophils % (Manual) Pending Lymphocytes % (Manual) Pending Platelet Estimate Pending Platelet Morphology Pending Sodium Level 146 MMOL/L (136-145) H Potassium Level 3.3 MMOL/L (3.5-5.1) L Chloride Level 103 MMOL/L (98-107) Carbon Dioxide Level 39 MMOL/L (21-32) H Anion Gap 4 mmol/L (5-15) L Blood Urea Nitrogen 18 mg/dL (7-18) Creatinine 0.9 MG/DL (0.55-1.30) Estimat Glomerular Filtration Rate > 60 mL/min (>60) Glucose Level 122 MG/DL (74-106) H Calcium Level 8.7 MG/DL (8.5-10.1) Phosphorus Level 2.2 MG/DL (2.5-4.9) L Magnesium Level 1.7 MG/DL (1.8-2.4) L Total Bilirubin 0.6 MG/DL (0.2-1.0) Aspartate Amino Transf (AST/SGOT) 18 U/L (15-37) Alanine Aminotransferase (ALT/SGPT) 24 U/L (12-78) Alkaline Phosphatase 67 U/L (46-116) C-Reactive Protein, Quantitative 31.4 mg/dL (0.00-0.90) H Total Protein 5.6 G/DL (6.4-8.2) L Albumin 1.5 G/DL (3.4-5.0) L Globulin 4.1 g/dL Albumin/Globulin Ratio 0.4 (1.0-2.7) L Digoxin Level 0.6 NG/ML (0.5-2.0) Arterial Blood pH 7.390 (7.350-7.450) Arterial Blood Partial Pressure CO2 69.9 mmHg (35.0-45.0) *H Arterial Blood Partial Pressure O2 110.6 mmHg (75.0-100.0) H Arterial Blood HCO3 41.4 mmol/L (22.0-26.0) *H Arterial Blood Oxygen Saturation 97.7 % (95-100) Arterial Blood Base Excess 14.2 (-2-2) *H Nicolas Test Positive Vancomycin Level Trough Pending Objective HEAD AND NECK: No JVD. He is orally intubated. LUNGS: Coarse rhonchi. CARDIOVASCULAR: Shows tachycardic S1 and S2 with no gallop. ABDOMEN: Status post G-tube. EXTREMITIES: 1+ pitting edema. Trace Diaz MD May 14, 2020 09:36
[2020-05-14] MEDS ORDERED: Potassium Phosphate 20 MM in NS 275 ML IV ONE (10:00)
[2020-05-14] MEDS: Vancomycin 750 MG in NS 275 ML IVPB SCH ×2 (10:25→21:37)
--- NOTE | 2020-05-14 10:56 | Infectious Diseases Prog Note ---
Assessment/Plan Assessment: Septic Shock- off pressors now Pneumonia- COVID 19 neg x3(2 on same day) Acute hypoxic resp failure- s/p intubation 05/02 -05/12 CXR: Again demonstrated are extensive right greater than left bilateral infiltrates, probably unchanged allowing for differences in degree of rotation and exposure technique. -05/10 sp cx MDR PsA (I Ceftazidime, Gentamycin), MDR alcaligenes sp ( suspect likely contaminant) -05/08 CXRL Increasing airspace opacities, worse in the right midlung. Increase in small right pleural effusion and probably small left pleural effusion. -05/07 Rapid COVID PCR neg -05/05 Bcx NTD -05/04 CXR: Dense consolidation of the right mid and lower lung, right pleural effusion are unchanged. Left lung and pleural space remain clear. -05/02 Sp cx PsA (pham S), E. aerogenes (R Ancef; otherwise S), MRSA -05/02 CXR: There is a moderately consolidating infiltrate in the right lower lobe consistent with pneumonia. Bcx neg x4 rapid COVID neg, COVI PCR neg - previously neg: -02/26 SARS-COV2 pCR neg; 02/28 SARS-COV 2 pcr neg Probable UTI -u/a wbc 10-15, nit neg, leul +2 ; ucx <10k ESBL. P. mirabilis (S Zosyn, meropenem) FEver (up to 105.3); improving (on cooling blanket) leukocytosis; increased, now improvnig -05/10 u/a neg Bcx NGD TOMAS; SP Recent Sepsis 2ry to ESBL K.pna bacteremia and Pneumonia 02/2020 -Bcx 3/4 ESBL K.pna (S Levo, Meropenem, ZOsyn); 03/01 Bcx Neg -sp cx ESBL K.pna -02/27 sp removal PICC Line; cath tip cx Neg muscle weakness and atrophy (not characterized) psychiatric disorder dysphagia s/p GT NM resident ( [facility]) Dementia seizure disorder Plan: -COntinue Meropenem #13/14 for UTI and PNA and IV Vancomycin #13/14 for MRSA PNA -add empiric Micafungin #4/5 given rise in wbc -Empiric AMikacin #3 for MDRO- seems to have improved on it -05/05 SP Amikacin #4 -05/02 SP CEfepime x1 , Azithromycin x1 -f/u cx -Monitor CBC/CMP, temperatures -COVID19 neg x2; ok to dc COVID isolation -ICU/ETT/PEG care -f/u repeat cultures -Cdiff if diarrhea Thank you for consulting [facility]. Will continue to follow along with you. Joy troncoso RN. Subjective Allergies: Coded Allergies: DIPHENHYDRAMINE (Verified Allergy, Unknown, 02/27/20) afebrile >48hrs wbc improving Fio2 down to 60% Objective Last 24 Hour Vital Signs Date Time Temp Pulse Resp B/P (MAP) Pulse Ox O2 Delivery O2 Flow Rate FiO2 05/14/20 10:30 110 25 128/92 99 Mechanical Ventilator 60 05/14/20 10:00 96 25 77/38 99 Mechanical Ventilator 60 05/14/20 09:33 114 24 80/51 99 Mechanical Ventilator 60 05/14/20 09:00 114 24 94/54 99 Mechanical Ventilator 60 05/14/20 08:41 129 05/14/20 08:40 129 131/63 05/14/20 08:40 128 25 70 05/14/20 08:30 128 26 156/82 96 Mechanical Ventilator 70 05/14/20 08:00 98.6 115 24 111/77 100 Mechanical Ventilator 70 05/14/20 08:00 114 05/14/20 07:39 Mechanical Ventilator 05/14/20 07:38 70 05/14/20 07:30 98.4 114 17 121/84 100 Mechanical Ventilator 70 05/14/20 07:00 119 24 132/84 100 Mechanical Ventilator 70 05/14/20 07:00 24 132/54 Mechanical Ventilator 70 05/14/20 06:49 118 22 70 05/14/20 06:30 117 24 05/14/20 06:30 117 24 150/71 100 Mechanical Ventilator 70 05/14/20 06:00 25 158/86 Mechanical Ventilator 70 05/14/20 06:00 119 25 158/86 100 Mechanical Ventilator 70 05/14/20 05:30 122 27 160/97 100 Mechanical Ventilator 70 05/14/20 05:00 28 154/87 Mechanical Ventilator 70 05/14/20 05:00 121 28 152/87 100 Mechanical Ventilator 70 05/14/20 04:51 124 29 70 05/14/20 04:45 124 26 138/96 100 Mechanical Ventilator 70 05/14/20 04:30 124 26 138/96 100 Mechanical Ventilator 70 05/14/20 04:00 122 05/14/20 04:00 70 05/14/20 04:00 28 136/81 Mechanical Ventilator 70 05/14/20 04:00 98.7 122 28 136/81 98 Mechanical Ventilator 70 05/14/20 04:00 Endotracheal Tube 05/14/20 03:30 128 31 145/111 99 Mechanical Ventilator 70 05/14/20 03:10 127 35 70 05/14/20 03:00 33 145/84 Mechanical Ventilator 30 05/14/20 03:00 129 33 145/84 97 Mechanical Ventilator 70 05/14/20 02:30 125 30 130/88 96 Mechanical Ventilator 70 05/14/20 02:00 127 27 127/74 91 Mechanical Ventilator 60 05/14/20 02:00 27 127/74 Mechanical Ventilator 60 05/14/20 01:59 20 142/74 Mechanical Ventilator 60 05/14/20 01:30 122 23 125/72 93 Mechanical Ventilator 60 05/14/20 01:00 112 21 111/54 97 Mechanical Ventilator 60 05/14/20 01:00 21 111/54 Mechanical Ventilator 60 05/14/20 00:52 108 23 60 05/14/20 00:45 110 22 95/51 99 Mechanical Ventilator 60 05/14/20 00:30 104 20 89/54 100 Mechanical Ventilator 60 05/14/20 00:22 99 18 88/61 100 Mechanical Ventilator 60 05/14/20 00:20 99 20 70/41 100 Mechanical Ventilator 60 05/14/20 00:00 60 05/14/20 00:00 99.8 100 20 92/71 100 Mechanical Ventilator 60 05/14/20 00:00 20 92/71 Mechanical Ventilator 60 05/14/20 00:00 100 05/14/20 00:00 Endotracheal Tube 05/13/20 23:30 100 19 90/61 100 Mechanical Ventilator 60 05/13/20 23:15 96 22 60 05/13/20 23:00 97 19 100/56 100 Mechanical Ventilator 70 05/13/20 23:00 19 100/56 Mechanical Ventilator 70 05/13/20 22:30 104 20 119/72 100 Mechanical Ventilator 70 05/13/20 22:00 113 22 117/66 100 Mechanical Ventilator 70 7/30/20 22:00 22 117/66 Mechanical Ventilator 70 30/20 21:30 118 19 120/59 100 Mechanical Ventilator 70 05/13/20 21:20 122 22 70 7/20 21:00 17 122/90 Mechanical Ventilator 70 05/13/20 21:00 123 17 122/90 100 Mechanical Ventilator 70 30/20 20:41 124 129/69 05/13/20 20:37 124 19 129/69 100 Mechanical Ventilator 70 05/13/ 20:30 126 18 112/78 98 Mechanical Ventilator 70 05/13/ 20:15 126 18 135/88 98 Mechanical Ventilator 70 05/13/ 20:00 98.7 120 17 124/65 98 Mechanical Ventilator 70 05/13/20 20:00 17 124/65 Mechanical Ventilator 70 05/13/20 20:00 Endotracheal Tube 05/13/20 20:00 70 05/13/20 19:30 121 19 120/55 98 Mechanical Ventilator 70 05/13/20 19:08 116 26 70 05/13/20 19:07 116 05/13/20 19:00 119 19 106/65 99 Mechanical Ventilator 70 05/13/20 18:28 108 21 84/50 99 Mechanical Ventilator 70 05/13/20 18:02 114 21 94/57 99 Mechanical Ventilator 70 05/13/20 17:30 115 29 115/67 99 Mechanical Ventilator 70 05/13/20 17:01 124 27 70 05/13/20 17:00 129 29 161/82 99 Mechanical Ventilator 70 05/13/20 16:30 124 25 124/88 97 Mechanical Ventilator 70 05/13/20 16:00 99.0 132 26 136/75 100 Mechanical Ventilator 70 05/13/20 16:00 133 30/ 16:00 70 05/13/20 16:00 Endotracheal Tube 05/13/20 15:30 133 25 143/84 97 Mechanical Ventilator 70 05/13/20 15:19 134 25 70 05/13/ 15:00 128 17 136/88 100 Mechanical Ventilator 70 30/20 14:30 120 17 125/71 100 Mechanical Ventilator 70 05/13/ 14:02 111 17 80/48 100 Mechanical Ventilator 70 05/13/ 13:30 112 15 107/70 100 Mechanical Ventilator 70 05/13/ 13:07 25 133/75 Mechanical Ventilator 70 05/13/20 13:00 114 15 133/75 98 Mechanical Ventilator 70 05/13/20 12:57 115 24 70 05/13/20 12:30 110 15 120/57 98 Mechanical Ventilator 70 05/13/20 12:00 70 05/13/20 12:00 98.0 112 17 119/83 96 Mechanical Ventilator 70 05/13/20 12:00 118 05/13/20 12:00 Endotracheal Tube 05/13/20 11:30 110 15 120/57 98 Mechanical Ventilator 70 05/13/20 11:00 108 14 119/68 98 Mechanical Ventilator 70 05/13/20 10:42 111 27 70 Height (Feet): 5 Height (Inches): 8.00 Weight (Pounds): 151 NECK: Supple. No lymphadenopathy. CHEST: Mech Vent; Decreased breath sounds bilaterally without rales. CARDIOVASCULAR: Tachycardic, regular rhythm. S1 and S2 are normal without murmurs, rubs, or gallops. ABDOMEN: Soft, nontender, and nondistended. Positive bowel sounds. No evidence of hepatosplenomegaly. Currently, no rebound or guarding noted. EXTREMITIES: Negative for clubbing, cyanosis, or edema. Laboratory Tests Test 05/14/20 03:50 05/14/20 06:45 05/14/20 09:00 White Blood Count 16.3 K/UL (4.8-10.8) H Red Blood Count 2.96 M/UL (4.70-6.10) L Hemoglobin 9.1 G/DL (14.2-18.0) L Hematocrit 28.7 % (42.0-52.0) L Mean Corpuscular Volume 97 FL (80-99) Mean Corpuscular Hemoglobin 30.8 PG (27.0-31.0) Mean Corpuscular Hemoglobin Concent 31.7 G/DL (32.0-36.0) L Red Cell Distribution Width 13.6 % (11.6-14.8) Platelet Count 371 K/UL (150-450) Mean Platelet Volume 7.8 FL (6.5-10.1) Neutrophils (%) (Auto) % (45.0-75.0) Lymphocytes (%) (Auto) % (20.0-45.0) Monocytes (%) (Auto) % (1.0-10.0) Eosinophils (%) (Auto) % (0.0-3.0) Basophils (%) (Auto) % (0.0-2.0) Differential Total Cells Counted 100 Neutrophils % (Manual) 90 % (45-75) H Lymphocytes % (Manual) 6 % (20-45) L Monocytes % (Manual) 3 % (1-10) Eosinophils % (Manual) 1 % (0-3) Basophils % (Manual) 0 % (0-2) Band Neutrophils 0 % (0-8) Platelet Estimate Adequate Platelet Morphology Normal Hypochromasia 1+ Macrocytosis 1+ Sodium Level 146 MMOL/L (136-145) H Potassium Level 3.3 MMOL/L (3.5-5.1) L Chloride Level 103 MMOL/L (98-107) Carbon Dioxide Level 39 MMOL/L (21-32) H Anion Gap 4 mmol/L (5-15) L Blood Urea Nitrogen 18 mg/dL (7-18) Creatinine 0.9 MG/DL (0.55-1.30) Estimat Glomerular Filtration Rate > 60 mL/min (>60) Glucose Level 122 MG/DL (74-106) H Calcium Level 8.7 MG/DL (8.5-10.1) Phosphorus Level 2.2 MG/DL (2.5-4.9) L Magnesium Level 1.7 MG/DL (1.8-2.4) L Total Bilirubin 0.6 MG/DL (0.2-1.0) Aspartate Amino Transf (AST/SGOT) 18 U/L (15-37) Alanine Aminotransferase (ALT/SGPT) 24 U/L (12-78) Alkaline Phosphatase 67 U/L (46-116) C-Reactive Protein, Quantitative 31.4 mg/dL (0.00-0.90) H Total Protein 5.6 G/DL (6.4-8.2) L Albumin 1.5 G/DL (3.4-5.0) L Globulin 4.1 g/dL Albumin/Globulin Ratio 0.4 (1.0-2.7) L Digoxin Level 0.6 NG/ML (0.5-2.0) Arterial Blood pH 7.390 (7.350-7.450) Arterial Blood Partial Pressure CO2 69.9 mmHg (35.0-45.0) *H Arterial Blood Partial Pressure O2 110.6 mmHg (75.0-100.0) H Arterial Blood HCO3 41.4 mmol/L (22.0-26.0) *H Arterial Blood Oxygen Saturation 97.7 % (95-100) Arterial Blood Base Excess 14.2 (-2-2) *H Nicolas Test Positive Vancomycin Level Trough 18.3 ug/mL (5.0-12.0) H Current Medications Medications (Trade) Dose Ordered Sig/Damion Route PRN Reason Start Time Stop Time Status Last Admin Dose Admin Acetaminophen (Tylenol) 650 mg Q4H PRN GT fever 05/02/20 12:45 06/01/20 12:44 05/11/20 19:56 Amikacin Protocol (Amikacin pharmacy to dose) 1 ea DAILY PRN MISC Per rx protocol 05/12/20 16:15 06/11/20 16:14 Amikacin Sulfate 1000 mg/Sodium Chloride 114 ml @ 114 mls/hr Q36H IV 05/14/20 06:00 05/21/20 05:59 05/14/20 05:34 Aspirin (ASA) 81 mg DAILY GT 05/05/20 09:00 06/19/20 08:59 05/14/20 08:40 Chlorhexidine Gluconate (Marci-Hex 2%) 1 applic DAILY@2000 TOPIC 05/03/20 20:00 08/01/20 19:59 05/13/20 19:49 Digoxin (Lanoxin) 0.125 mg DAILY GT 05/14/20 09:00 08/12/20 08:59 05/14/20 08:41 Docusate Sodium (Colace) 100 mg EVERY 12 HOURS GT 05/10/20 21:00 06/09/20 20:59 05/14/20 08:41 Fentanyl Citrate 250 ml @ 0 mls/hr Q24H IV 05/03/20 22:03 08/01/20 22:02 05/14/20 01:59 Furosemide (Lasix) 40 mg EVERY 12 HOURS IV 05/10/20 09:00 06/09/20 08:59 05/14/20 08:40 Heparin Sodium (Porcine) (Heparin 5000 units/ml) 5,000 units EVERY 12 HOURS SUBQ 05/02/20 21:00 06/16/20 20:59 05/14/20 08:42 Iron Sucrose 100 mg/Sodium Chloride 60 ml @ 240 mls/hr BEDTIME IV 05/10/20 21:00 05/14/20 21:14 05/13/20 20:41 Levetiracetam (Keppra) 700 mg Q12HR GT 05/02/20 21:00 06/01/20 20:59 05/14/20 08:42 Lorazepam (Ativan 2mg/ml 1ml) 2 mg Q4H PRN IV For Anxiety/seizures 05/10/20 12:45 05/17/20 12:44 05/13/20 17:23 Magnesium Sulfate 100 ml @ 100 mls/hr Q1H IVPB 05/14/20 09:00 05/14/20 12:59 05/14/20 10:25 Meropenem 1 gm/ Sodium Chloride 55 ml @ 110 mls/hr Q8HR IVPB 05/02/20 15:00 05/16/20 23:59 05/14/20 05:34 Metoclopramide HCl (Reglan) 5 mg EVERY 6 HOURS GT 05/13/20 12:00 06/12/20 11:59 05/14/20 05:33 Metoprolol Tartrate (Lopressor) 25 mg Q12HR GT 05/10/20 21:00 08/08/20 08:59 05/14/20 08:40 Micafungin Sodium 100 mg/Sodium Chloride 110 ml @ 110 mls/hr Q24H IVPB 05/11/20 12:00 05/18/20 11:59 05/13/20 13:05 Midodrine (Pro-Amatine) 10 mg Q8HR GT 05/04/20 22:00 08/02/20 21:59 05/14/20 05:33 Ondansetron HCl (Zofran) 4 mg Q6H PRN IVP Nausea & Vomiting 05/02/20 12:45 06/01/20 12:44 Pantoprazole (Protonix) 40 mg DAILY IVP 05/10/20 09:00 06/09/20 08:59 05/14/20 08:41 Polyethylene Glycol (Miralax) 17 gm DAILYPRN PRN GT Constipation 05/02/20 12:45 06/01/20 12:44 Potassium Phosphate 20 mm/ Sodium Chloride 281.6667 ml @ 46.944 m... ONCE ONCE IV 05/14/20 10:00 05/14/20 15:59 Potassium Chloride (K-Dur) 40 meq TWICE A DAY GT 05/12/20 18:00 08/10/20 17:59 05/14/20 08:41 Vancomycin HCl (Vanco pharmacy to dose) 1 ea DAILY PRN MISC Per rx protocol 05/05/20 09:45 06/04/20 09:44 Vancomycin HCl 750 mg/Sodium Chloride 275 ml @ 183.333 mls/hr Q12H IVPB 05/12/20 22:00 05/17/20 21:59 05/14/20 10:25 Charlene Stokes M.D. May 14, 2020 10:56
--- NOTE | 2020-05-14 11:28 | Pulmonolgy Critical Care Note ---
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 (3) Sepsis (4) Nosocomial pneumonia (5) Seizure disorder (6) Dehydration (7) COPD (chronic obstructive pulmonary disease) (8) custodial resident (9) History of CVA (cerebrovascular accident) (10) Muscle wasting and atrophy, not elsewhere classified, multiple sites Respiratory: monitor respiratory rate, adjust FIO2, CXR, other - will wean, once Fio2 is 40% Cardiac: continue pressors, stop pressors, continue to monitor HR/BP Renal: F/U I&O, check electrolytes Infectious Disease: check cultures, continue antibiotics Gastrointestinal: continue feedings/current rate Endocrine: monitor blood sugar, check TSH Hematologic: monitor H/H, transfuse if hgb<8.5 Neurologic: PRN Ativan, keep patient comfortable Affect: PRN ativan Prophylaxis: Protonix 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, 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, 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, 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 - Objective Last 24 Hour Vital Signs Date Time Temp Pulse Resp B/P (MAP) Pulse Ox O2 Delivery O2 Flow Rate FiO2 05/14/20 11:02 131 25 60 05/14/20 10:30 110 25 128/92 99 Mechanical Ventilator 60 05/14/20 10:00 96 25 77/38 99 Mechanical Ventilator 60 05/14/20 09:33 114 24 80/51 99 Mechanical Ventilator 60 05/14/20 09:00 114 24 94/54 99 Mechanical Ventilator 60 05/14/20 08:41 129 05/14/20 08:40 129 131/63 05/14/20 08:40 128 25 70 05/14/20 08:30 128 26 156/82 96 Mechanical Ventilator 70 05/14/20 08:00 98.6 115 24 111/77 100 Mechanical Ventilator 70 05/14/20 08:00 114 05/14/20 07:39 Mechanical Ventilator 05/14/20 07:38 70 05/14/20 07:30 98.4 114 17 121/84 100 Mechanical Ventilator 70 05/14/20 07:00 119 24 132/84 100 Mechanical Ventilator 70 05/14/20 07:00 24 132/54 Mechanical Ventilator 70 05/14/20 06:49 118 22 70 05/14/20 06:30 117 24 05/14/20 06:30 117 24 150/71 100 Mechanical Ventilator 70 05/14/20 06:00 25 158/86 Mechanical Ventilator 70 05/14/20 06:00 119 25 158/86 100 Mechanical Ventilator 70 05/14/20 05:30 122 27 160/97 100 Mechanical Ventilator 70 05/14/20 05:00 28 154/87 Mechanical Ventilator 70 05/14/20 05:00 121 28 152/87 100 Mechanical Ventilator 70 05/14/20 04:51 124 29 70 05/14/20 04:45 124 26 138/96 100 Mechanical Ventilator 70 05/14/20 04:30 124 26 138/96 100 Mechanical Ventilator 70 05/14/20 04:00 122 05/14/20 04:00 70 05/14/20 04:00 28 136/81 Mechanical Ventilator 70 05/14/20 04:00 98.7 122 28 136/81 98 Mechanical Ventilator 70 05/14/20 04:00 Endotracheal Tube 05/14/20 03:30 128 31 145/111 99 Mechanical Ventilator 70 05/14/20 03:10 127 35 70 05/14/20 03:00 33 145/84 Mechanical Ventilator 30 05/14/20 03:00 129 33 145/84 97 Mechanical Ventilator 70 05/14/20 02:30 125 30 130/88 96 Mechanical Ventilator 70 05/14/20 02:00 127 27 127/74 91 Mechanical Ventilator 60 05/14/20 02:00 27 127/74 Mechanical Ventilator 60 05/14/20 01:59 20 142/74 Mechanical Ventilator 60 05/14/20 01:30 122 23 125/72 93 Mechanical Ventilator 60 05/14/20 01:00 112 21 111/54 97 Mechanical Ventilator 60 05/14/20 01:00 21 111/54 Mechanical Ventilator 60 05/14/20 00:52 108 23 60 05/14/20 00:45 110 22 95/51 99 Mechanical Ventilator 60 05/14/20 00:30 104 20 89/54 100 Mechanical Ventilator 60 05/14/20 00:22 99 18 88/61 100 Mechanical Ventilator 60 05/14/20 00:20 99 20 70/41 100 Mechanical Ventilator 60 05/14/20 00:00 60 05/14/20 00:00 99.8 100 20 92/71 100 Mechanical Ventilator 60 05/14/20 00:00 20 92/71 Mechanical Ventilator 60 05/14/20 00:00 100 05/14/20 00:00 Endotracheal Tube 05/13/20 23:30 100 19 90/61 100 Mechanical Ventilator 60 05/13/20 23:15 96 22 60 05/13/20 23:00 97 19 100/56 100 Mechanical Ventilator 70 05/13/20 23:00 19 100/56 Mechanical Ventilator 70 05/13/20 22:30 104 20 119/72 100 Mechanical Ventilator 70 05/13/20 22:00 113 22 117/66 100 Mechanical Ventilator 70 05/13/20 22:00 22 117/66 Mechanical Ventilator 70 05/13/20 21:30 118 19 120/59 100 Mechanical Ventilator 70 05/13/20 21:20 122 22 70 05/13/20 21:00 17 122/90 Mechanical Ventilator 70 05/13/20 21:00 123 17 122/90 100 Mechanical Ventilator 70 05/13/20 20:41 124 129/69 05/13/20 20:37 124 19 129/69 100 Mechanical Ventilator 70 05/13/20 20:30 126 18 112/78 98 Mechanical Ventilator 70 05/13/20 20:15 126 18 135/88 98 Mechanical Ventilator 70 05/13/20 20:00 98.7 120 17 124/65 98 Mechanical Ventilator 70 05/13/20 20:00 17 124/65 Mechanical Ventilator 70 05/13/20 20:00 Endotracheal Tube 05/13/20 20:00 70 05/13/20 19:30 121 19 120/55 98 Mechanical Ventilator 70 05/13/20 19:08 116 26 70 05/13/20 19:07 116 05/13/20 19:00 119 19 106/65 99 Mechanical Ventilator 70 05/13/20 18:28 108 21 84/50 99 Mechanical Ventilator 70 05/13/20 18:02 114 21 94/57 99 Mechanical Ventilator 70 05/13/20 17:30 115 29 115/67 99 Mechanical Ventilator 70 05/13/20 17:01 124 27 70 05/13/20 17:00 129 29 161/82 99 Mechanical Ventilator 70 05/13/20 16:30 124 25 124/88 97 Mechanical Ventilator 70 05/13/20 16:00 99.0 132 26 136/75 100 Mechanical Ventilator 70 05/13/20 16:00 133 30 16:00 70 05/13/20 16:00 Endotracheal Tube 05/13/20 15:30 133 25 143/84 97 Mechanical Ventilator 70 05/13/20 15:19 134 25 70 05/13/20 15:00 128 17 136/88 100 Mechanical Ventilator 70 05/13/20 14:30 120 17 125/71 100 Mechanical Ventilator 70 05/13/20 14:02 111 17 80/48 100 Mechanical Ventilator 70 05/13/20 13:30 112 15 107/70 100 Mechanical Ventilator 70 05/13/20 13:07 25 133/75 Mechanical Ventilator 70 05/13/20 13:00 114 15 133/75 98 Mechanical Ventilator 70 05/13/20 12:57 115 24 70 05/13/20 12:30 110 15 120/57 98 Mechanical Ventilator 70 05/13/20 12:00 70 05/13/20 12:00 98.0 112 17 119/83 96 Mechanical Ventilator 70 05/13/20 12:00 118 05/13/20 12:00 Endotracheal Tube 05/13/20 11:30 110 15 120/57 98 Mechanical Ventilator 70 Status: sedated Condition: critical HEENT: atraumatic Neck: full ROM Lungs: chest wall tender Heart: HR/BP stable Abdomen: soft, non-tender, feeding tube Extremities: edema Decubiti: location Critical Care - Subjective ROS Limited/Unobtainable: Yes Condition: critical, improving, stable EKG Rhythm: Sinus Rhythm FI02: 60 Vent Support Breath Rate: 20 Vent Support Mode: AC Vent Tidal Volume: 600 Sputum Amount: Moderate PEEP: 0.0 PIP: 25 Tube Feeding Amount: 60 I&O: Intake and Output 05/13/20 05/14/20 19:00 07:00 Intake Total 2175.0 ml 1188 ml Output Total 2350 ml 3500 ml Balance -175.0 ml -2312 ml Intake Free Water 50 ml IV Total 1355.0 ml 788 ml Tube Feeding 720 ml 210 ml Other 50 ml 190 ml Output Urine Total 2350 ml 3500 ml # Bowel Movements 2 CXR: bilateral interstitial infiltrate ET-Tube: 7.5 ET Position: 24 Labs: Laboratory Tests Test 05/14/20 03:50 05/14/20 06:45 05/14/20 09:00 White Blood Count 16.3 K/UL (4.8-10.8) H Red Blood Count 2.96 M/UL (4.70-6.10) L Hemoglobin 9.1 G/DL (14.2-18.0) L Hematocrit 28.7 % (42.0-52.0) L Mean Corpuscular Volume 97 FL (80-99) Mean Corpuscular Hemoglobin 30.8 PG (27.0-31.0) Mean Corpuscular Hemoglobin Concent 31.7 G/DL (32.0-36.0) L Red Cell Distribution Width 13.6 % (11.6-14.8) Platelet Count 371 K/UL (150-450) Mean Platelet Volume 7.8 FL (6.5-10.1) Neutrophils (%) (Auto) % (45.0-75.0) Lymphocytes (%) (Auto) % (20.0-45.0) Monocytes (%) (Auto) % (1.0-10.0) Eosinophils (%) (Auto) % (0.0-3.0) Basophils (%) (Auto) % (0.0-2.0) Differential Total Cells Counted 100 Neutrophils % (Manual) 90 % (45-75) H Lymphocytes % (Manual) 6 % (20-45) L Monocytes % (Manual) 3 % (1-10) Eosinophils % (Manual) 1 % (0-3) Basophils % (Manual) 0 % (0-2) Band Neutrophils 0 % (0-8) Platelet Estimate Adequate Platelet Morphology Normal Hypochromasia 1+ Macrocytosis 1+ Sodium Level 146 MMOL/L (136-145) H Potassium Level 3.3 MMOL/L (3.5-5.1) L Chloride Level 103 MMOL/L (98-107) Carbon Dioxide Level 39 MMOL/L (21-32) H Anion Gap 4 mmol/L (5-15) L Blood Urea Nitrogen 18 mg/dL (7-18) Creatinine 0.9 MG/DL (0.55-1.30) Estimat Glomerular Filtration Rate > 60 mL/min (>60) Glucose Level 122 MG/DL (74-106) H Calcium Level 8.7 MG/DL (8.5-10.1) Phosphorus Level 2.2 MG/DL (2.5-4.9) L Magnesium Level 1.7 MG/DL (1.8-2.4) L Total Bilirubin 0.6 MG/DL (0.2-1.0) Aspartate Amino Transf (AST/SGOT) 18 U/L (15-37) Alanine Aminotransferase (ALT/SGPT) 24 U/L (12-78) Alkaline Phosphatase 67 U/L (46-116) C-Reactive Protein, Quantitative 31.4 mg/dL (0.00-0.90) H Total Protein 5.6 G/DL (6.4-8.2) L Albumin 1.5 G/DL (3.4-5.0) L Globulin 4.1 g/dL Albumin/Globulin Ratio 0.4 (1.0-2.7) L Digoxin Level 0.6 NG/ML (0.5-2.0) Arterial Blood pH 7.390 (7.350-7.450) Arterial Blood Partial Pressure CO2 69.9 mmHg (35.0-45.0) *H Arterial Blood Partial Pressure O2 110.6 mmHg (75.0-100.0) H Arterial Blood HCO3 41.4 mmol/L (22.0-26.0) *H Arterial Blood Oxygen Saturation 97.7 % (95-100) Arterial Blood Base Excess 14.2 (-2-2) *H Nicolas Test Positive Vancomycin Level Trough 18.3 ug/mL (5.0-12.0) H Ana Maria Hansen MD May 14, 2020 11:28
[2020-05-14] MEDS: Micafungin 100 MG in NS 110 ML IVPB SCH (12:15)
--- NOTE | 2020-05-14 13:25 | Diagnostic Imaging Report ---
Procedure: XRAY Chest 1v Reason for study: Reason For Exam: SOB Comparison films: 05/13/2020. FINDINGS: Endotracheal tube and right central venous catheter remain in place. Extensive bilateral alveolar infiltrates are unchanged. Cardiac and mediastinal silhouette are within normal limits. CP angles are sharp. The bony thorax appear unremarkable. IMPRESSION: NO SIGNIFICANT CHANGE COMPARED TO PREVIOUS EXAM.
--- NOTE | 2020-05-14 13:44 | Nephrology Progress Note ---
Assessment/Plan Problem List: (1) Electrolyte imbalance (2) Dehydration (3) Acute respiratory failure (4) Seizure disorder Assessment Severe electrolyte abnormalities Low magnesium, low phosphorus, low potassium, Other active conditions: (1) Acute respiratory failure (2) Sepsis (3) Nosocomial pneumonia (4) Seizure disorder (5) Dehydration (6) COPD (chronic obstructive pulmonary disease) (7) [facility] resident (8) History of CVA (cerebrovascular accident) Plan May 14: Lab reviewed. Potassium phosphate IV given. Remains tachycardic. Continue per consultants. May 13: Lab reviewed. Potassium supplements given. Patient has diarrhea. Tolerating G-tube feeding as per ASAD Perez. Reglan and erythromycin IV discontinued. Continue to monitor renal parameters. Low-dose digoxin started. May 12: Labs reviewed. Magnesium, potassium, phosphorus supplement given. IV digoxin repeated. IV fluids stopped. May 11: Renal parameters stable. Continue digoxin for tachycardia. May 10: Tachycardia improved. Renal parameters stable. Continue per consultants. May 09: Patient remains tachycardic. 2D echocardiogram done results pending. 1 dose of IV digoxin ordered. Discussed with ASAD Dixon. Remains stable from renal standpoint of view. May 08: Magnesium sulfate IV ordered for hypomagnesemia. Patient has metabolic acidosis. IV sodium bicarb given. Feeding on hold due to residual. IV Reglan ordered. IV fluid changed to D10 normal saline. 2D echocardiogram ordered for tachycardia. Chest x-ray suggests worsening pulmonary infiltrate. Discussed with ASAD Stevens Remains stable from renal standpoint of view Discussed with ASAD mag , phosphorus and potassium supplement as needed Monitor electrolytes Continue per consultants Subjective ROS Limited/Unobtainable: Yes Objective Objective Last 24 Hour Vital Signs Date Time Temp Pulse Resp B/P (MAP) Pulse Ox O2 Delivery O2 Flow Rate FiO2 05/14/20 12:30 120 28 60 05/14/20 12:00 119 05/14/20 12:00 119 26 156/93 96 Mechanical Ventilator 60 05/14/20 12:00 123 27 134/66 97 Mechanical Ventilator 60 05/14/20 11:30 120 26 125/72 96 Mechanical Ventilator 60 05/14/20 11:02 131 25 60 05/14/20 11:00 119 26 156/93 96 Mechanical Ventilator 60 05/14/20 10:30 110 25 128/92 99 Mechanical Ventilator 60 05/14/20 10:00 96 25 77/38 99 Mechanical Ventilator 60 05/14/20 09:33 114 24 80/51 99 Mechanical Ventilator 60 05/14/20 09:00 114 24 94/54 99 Mechanical Ventilator 60 05/14/20 08:41 129 05/14/20 08:40 129 131/63 05/14/20 08:40 128 25 70 05/14/20 08:30 128 26 156/82 96 Mechanical Ventilator 70 05/14/20 08:00 98.6 115 24 111/77 100 Mechanical Ventilator 70 05/14/20 08:00 114 05/14/20 07:39 Mechanical Ventilator 05/14/20 07:38 70 05/14/20 07:30 98.4 114 17 121/84 100 Mechanical Ventilator 70 05/14/20 07:00 119 24 132/84 100 Mechanical Ventilator 70 05/14/20 07:00 24 132/54 Mechanical Ventilator 70 05/14/20 06:49 118 22 70 05/14/20 06:30 117 24 05/14/20 06:30 117 24 150/71 100 Mechanical Ventilator 70 05/14/20 06:00 25 158/86 Mechanical Ventilator 70 05/14/20 06:00 119 25 158/86 100 Mechanical Ventilator 70 05/14/20 05:30 122 27 160/97 100 Mechanical Ventilator 70 05/14/20 05:00 28 154/87 Mechanical Ventilator 70 05/14/20 05:00 121 28 152/87 100 Mechanical Ventilator 70 05/14/20 04:51 124 29 70 05/14/20 04:45 124 26 138/96 100 Mechanical Ventilator 70 05/14/20 04:30 124 26 138/96 100 Mechanical Ventilator 70 05/14/20 04:00 122 05/14/20 04:00 70 05/14/20 04:00 28 136/81 Mechanical Ventilator 70 05/14/20 04:00 98.7 122 28 136/81 98 Mechanical Ventilator 70 05/14/20 04:00 Endotracheal Tube 05/14/20 03:30 128 31 145/111 99 Mechanical Ventilator 70 05/14/20 03:10 127 35 70 05/14/20 03:00 33 145/84 Mechanical Ventilator 30 05/14/20 03:00 129 33 145/84 97 Mechanical Ventilator 70 05/14/20 02:30 125 30 130/88 96 Mechanical Ventilator 70 7/31/20 02:00 127 27 127/74 91 Mechanical Ventilator 60 05/14/20 02:00 27 127/74 Mechanical Ventilator 60 05/14/20 01:59 20 142/74 Mechanical Ventilator 60 05/14/20 01:30 122 23 125/72 93 Mechanical Ventilator 60 05/14/20 01:00 112 21 111/54 97 Mechanical Ventilator 60 05/14/20 01:00 21 111/54 Mechanical Ventilator 60 05/14/20 00:52 108 23 60 05/14/20 00:45 110 22 95/51 99 Mechanical Ventilator 60 05/14/20 00:30 104 20 89/54 100 Mechanical Ventilator 60 05/14/20 00:22 99 18 88/61 100 Mechanical Ventilator 60 05/14/20 00:20 99 20 70/41 100 Mechanical Ventilator 60 05/14/20 00:00 60 05/14/20 00:00 99.8 100 20 92/71 100 Mechanical Ventilator 60 05/14/20 00:00 20 92/71 Mechanical Ventilator 60 05/14/20 00:00 100 05/14/20 00:00 Endotracheal Tube 05/13/20 23:30 100 19 90/61 100 Mechanical Ventilator 60 05/13/20 23:15 96 22 60 05/13/20 23:00 97 19 100/56 100 Mechanical Ventilator 70 05/13/20 23:00 19 100/56 Mechanical Ventilator 70 05/13/20 22:30 104 20 119/72 100 Mechanical Ventilator 70 05/13/20 22:00 113 22 117/66 100 Mechanical Ventilator 70 05/13/20 22:00 22 117/66 Mechanical Ventilator 70 05/13/20 21:30 118 19 120/59 100 Mechanical Ventilator 70 05/13/20 21:20 122 22 70 05/13/20 21:00 17 122/90 Mechanical Ventilator 70 05/13/20 21:00 123 17 122/90 100 Mechanical Ventilator 70 05/13/20 20:41 124 129/69 05/13/20 20:37 124 19 129/69 100 Mechanical Ventilator 70 05/13/20 20:30 126 18 112/78 98 Mechanical Ventilator 70 05/13/20 20:15 126 18 135/88 98 Mechanical Ventilator 70 05/13/20 20:00 98.7 120 17 124/65 98 Mechanical Ventilator 70 05/13/20 20:00 17 124/65 Mechanical Ventilator 70 05/13/20 20:00 Endotracheal Tube 05/13/20 20:00 70 05/13/20 19:30 121 19 120/55 98 Mechanical Ventilator 70 05/13/20 19:08 116 26 70 05/13/20 19:07 116 05/13/20 19:00 119 19 106/65 99 Mechanical Ventilator 70 05/13/20 18:28 108 21 84/50 99 Mechanical Ventilator 70 05/13/20 18:02 114 21 94/57 99 Mechanical Ventilator 70 05/13/20 17:30 115 29 115/67 99 Mechanical Ventilator 70 05/13/20 17:01 124 27 70 05/13/20 17:00 129 29 161/82 99 Mechanical Ventilator 70 05/13/20 16:30 124 25 124/88 97 Mechanical Ventilator 05/13/20 16:00 99.0 132 26 136/75 100 Mechanical Ventilator 05/13/20 16:00 133 05/13/20 16:00 70 05/13/20 16:00 Endotracheal Tube 05/13/20 15:30 133 25 143/84 97 Mechanical Ventilator 05/13/20 15:19 134 25 70 05/13/20 15:00 128 17 136/88 100 Mechanical Ventilator 70 05/13/20 14:30 120 17 125/71 100 Mechanical Ventilator 70 05/13/20 14:02 111 17 80/48 100 Mechanical Ventilator 70 Intake and Output 05/13/20 05/14/20 19:00 07:00 Intake Total 2175.0 ml 1188 ml Output Total 2350 ml 3500 ml Balance -175.0 ml -2312 ml Intake Free Water 50 ml IV Total 1355.0 ml 788 ml Tube Feeding 720 ml 210 ml Other 50 ml 190 ml Output Urine Total 2350 ml 3500 ml # Bowel Movements 2 Laboratory Tests 05/14/20 03:50: White Blood Count 16.3H, Red Blood Count 2.96L, Hemoglobin 9.1L, Hematocrit 28.7L, Mean Corpuscular Volume 97, Mean Corpuscular Hemoglobin 30.8, Mean Corpuscular Hemoglobin Concent 31.7L, Red Cell Distribution Width 13.6, Platelet Count 371, Mean Platelet Volume 7.8, Neutrophils (%) (Auto) , Lymphocytes (%) (Auto) , Monocytes (%) (Auto) , Eosinophils (%) (Auto) , Basophils (%) (Auto) , Differential Total Cells Counted 100, Neutrophils % ( Manual) 90H, Lymphocytes % (Manual) 6L, Monocytes % (Manual) 3, Eosinophils % ( Manual) 1, Basophils % (Manual) 0, Band Neutrophils 0, Platelet Estimate Adequate, Platelet Morphology Normal, Hypochromasia 1+, Macrocytosis 1+, Sodium Level 146H, Potassium Level 3.3L, Chloride Level 103, Carbon Dioxide Level 39H, Anion Gap 4L, Blood Urea Nitrogen 18, Creatinine 0.9, Estimat Glomerular Filtration Rate > 60, Glucose Level 122H, Calcium Level 8.7, Phosphorus Level 2.2L, Magnesium Level 1.7L, Total Bilirubin 0.6, Aspartate Amino Transf (AST/ SGOT) 18, Alanine Aminotransferase (ALT/SGPT) 24, Alkaline Phosphatase 67, C- Reactive Protein, Quantitative 31.4H, Total Protein 5.6L, Albumin 1.5L, Globulin 4.1, Albumin/Globulin Ratio 0.4L, Digoxin Level 0.6 05/14/20 06:45: Arterial Blood pH 7.390, Arterial Blood Partial Pressure CO2 69.9*H, Arterial Blood Partial Pressure O2 110.6H, Arterial Blood HCO3 41.4*H, Arterial Blood Oxygen Saturation 97.7, Arterial Blood Base Excess 14.2*H, Nicolas Test Positive 05/14/20 09:00: Vancomycin Level Trough 18.3H Height (Feet): 5 Height (Inches): 8.00 Weight (Pounds): 151 General Appearance: no apparent distress EENT: other Cardiovascular: tachycardia Respiratory/Chest: decreased breath sounds Abdomen: distended Kin Bustillo MD May 14, 2020 13:44
[2020-05-14] MEDS: Dyna-Hex 2% Top Sol 2oz TOPIC SCH (19:36)
--- NOTE | 2020-05-14 20:07 | Internal Med Progress Note ---
Subjective Physician Name Marky Go Attending Physician Marky Go MD Current Medications Medications (Trade) Dose Ordered Sig/Damion Route PRN Reason Start Time Stop Time Status Last Admin Dose Admin Acetaminophen (Tylenol) 650 mg Q4H PRN GT fever 05/02/20 12:45 06/01/20 12:44 05/11/20 19:56 Amikacin Protocol (Amikacin pharmacy to dose) 1 ea DAILY PRN MISC Per rx protocol 05/12/20 16:15 06/11/20 16:14 Amikacin Sulfate 1000 mg/Sodium Chloride 114 ml @ 114 mls/hr Q36H IV 05/14/20 06:00 05/21/20 05:59 05/14/20 05:34 Aspirin (ASA) 81 mg DAILY GT 05/05/20 09:00 06/19/20 08:59 05/14/20 08:40 Chlorhexidine Gluconate (Marci-Hex 2%) 1 applic DAILY@2000 TOPIC 05/03/20 20:00 08/01/20 19:59 05/14/20 19:36 Digoxin (Lanoxin) 0.125 mg DAILY GT 05/14/20 09:00 08/12/20 08:59 05/14/20 08:41 Docusate Sodium (Colace) 100 mg EVERY 12 HOURS GT 05/10/20 21:00 06/09/20 20:59 05/14/20 08:41 Fentanyl Citrate 250 ml @ 0 mls/hr Q24H IV 05/03/20 22:03 08/01/20 22:02 05/14/20 15:03 Furosemide (Lasix) 40 mg EVERY 12 HOURS IV 05/10/20 09:00 06/09/20 08:59 05/14/20 08:40 Heparin Sodium (Porcine) (Heparin 5000 units/ml) 5,000 units EVERY 12 HOURS SUBQ 05/02/20 21:00 06/16/20 20:59 05/14/20 08:42 Iron Sucrose 100 mg/Sodium Chloride 60 ml @ 240 mls/hr BEDTIME IV 05/10/20 21:00 05/14/20 21:14 05/13/20 20:41 Levetiracetam (Keppra) 700 mg Q12HR GT 05/02/20 21:00 06/01/20 20:59 05/14/20 08:42 Lorazepam (Ativan 2mg/ml 1ml) 2 mg Q4H PRN IV For Anxiety/seizures 05/10/20 12:45 05/17/20 12:44 05/13/20 17:23 Meropenem 1 gm/ Sodium Chloride 55 ml @ 110 mls/hr Q8HR IVPB 05/02/20 15:00 05/16/20 23:59 05/14/20 15:01 Metoclopramide HCl (Reglan) 5 mg EVERY 6 HOURS GT 05/13/20 12:00 06/12/20 11:59 05/14/20 12:14 Metoprolol Tartrate (Lopressor) 25 mg Q12HR GT 05/10/20 21:00 08/08/20 08:59 05/14/20 08:40 Micafungin Sodium 100 mg/Sodium Chloride 110 ml @ 110 mls/hr Q24H IVPB 05/11/20 12:00 05/18/20 11:59 05/14/20 12:15 Midodrine (Pro-Amatine) 10 mg Q8HR GT 05/04/20 22:00 08/02/20 21:59 05/14/20 13:16 Ondansetron HCl (Zofran) 4 mg Q6H PRN IVP Nausea & Vomiting 05/02/20 12:45 06/01/20 12:44 Pantoprazole (Protonix) 40 mg DAILY IVP 05/10/20 09:00 06/09/20 08:59 05/14/20 08:41 Polyethylene Glycol (Miralax) 17 gm DAILYPRN PRN GT Constipation 05/02/20 12:45 06/01/20 12:44 Potassium Chloride (K-Dur) 40 meq TWICE A DAY GT 05/12/20 18:00 08/10/20 17:59 05/14/20 18:44 Vancomycin HCl (Vanco pharmacy to dose) 1 ea DAILY PRN MISC Per rx protocol 05/05/20 09:45 06/04/20 09:44 Vancomycin HCl 750 mg/Sodium Chloride 275 ml @ 183.333 mls/hr Q12H IVPB 05/12/20 22:00 05/17/20 21:59 05/14/20 10:25 Allergies: Coded Allergies: DIPHENHYDRAMINE (Verified Allergy, Unknown, 02/27/20) Subjective in ICU, intubated, unable to follow command, open eyes,WBC: 16.3 decreasing. Objective Last Vital Signs Date Time Temp Pulse Resp B/P (MAP) Pulse Ox O2 Delivery O2 Flow Rate FiO2 05/14/20 19:13 129 21 60 05/14/20 18:30 141/82 97 Mechanical Ventilator 05/14/20 16:00 98.9 05/12/20 17:36 15.0 Laboratory Tests Test 05/14/20 03:50 05/14/20 06:45 05/14/20 09:00 White Blood Count 16.3 K/UL (4.8-10.8) H Red Blood Count 2.96 M/UL (4.70-6.10) L Hemoglobin 9.1 G/DL (14.2-18.0) L Hematocrit 28.7 % (42.0-52.0) L Mean Corpuscular Volume 97 FL (80-99) Mean Corpuscular Hemoglobin 30.8 PG (27.0-31.0) Mean Corpuscular Hemoglobin Concent 31.7 G/DL (32.0-36.0) L Red Cell Distribution Width 13.6 % (11.6-14.8) Platelet Count 371 K/UL (150-450) Mean Platelet Volume 7.8 FL (6.5-10.1) Neutrophils (%) (Auto) % (45.0-75.0) Lymphocytes (%) (Auto) % (20.0-45.0) Monocytes (%) (Auto) % (1.0-10.0) Eosinophils (%) (Auto) % (0.0-3.0) Basophils (%) (Auto) % (0.0-2.0) Differential Total Cells Counted 100 Neutrophils % (Manual) 90 % (45-75) H Lymphocytes % (Manual) 6 % (20-45) L Monocytes % (Manual) 3 % (1-10) Eosinophils % (Manual) 1 % (0-3) Basophils % (Manual) 0 % (0-2) Band Neutrophils 0 % (0-8) Platelet Estimate Adequate Platelet Morphology Normal Hypochromasia 1+ Macrocytosis 1+ Sodium Level 146 MMOL/L (136-145) H Potassium Level 3.3 MMOL/L (3.5-5.1) L Chloride Level 103 MMOL/L (98-107) Carbon Dioxide Level 39 MMOL/L (21-32) H Anion Gap 4 mmol/L (5-15) L Blood Urea Nitrogen 18 mg/dL (7-18) Creatinine 0.9 MG/DL (0.55-1.30) Estimat Glomerular Filtration Rate > 60 mL/min (>60) Glucose Level 122 MG/DL (74-106) H Calcium Level 8.7 MG/DL (8.5-10.1) Phosphorus Level 2.2 MG/DL (2.5-4.9) L Magnesium Level 1.7 MG/DL (1.8-2.4) L Total Bilirubin 0.6 MG/DL (0.2-1.0) Aspartate Amino Transf (AST/SGOT) 18 U/L (15-37) Alanine Aminotransferase (ALT/SGPT) 24 U/L (12-78) Alkaline Phosphatase 67 U/L (46-116) C-Reactive Protein, Quantitative 31.4 mg/dL (0.00-0.90) H Total Protein 5.6 G/DL (6.4-8.2) L Albumin 1.5 G/DL (3.4-5.0) L Globulin 4.1 g/dL Albumin/Globulin Ratio 0.4 (1.0-2.7) L Digoxin Level 0.6 NG/ML (0.5-2.0) Arterial Blood pH 7.390 (7.350-7.450) Arterial Blood Partial Pressure CO2 69.9 mmHg (35.0-45.0) *H Arterial Blood Partial Pressure O2 110.6 mmHg (75.0-100.0) H Arterial Blood HCO3 41.4 mmol/L (22.0-26.0) *H Arterial Blood Oxygen Saturation 97.7 % (95-100) Arterial Blood Base Excess 14.2 (-2-2) *H Nicolas Test Positive Vancomycin Level Trough 18.3 ug/mL (5.0-12.0) H Intake and Output 05/13/20 05/14/20 19:00 07:00 Intake Total 2175.0 ml 1188 ml Output Total 2350 ml 3500 ml Balance -175.0 ml -2312 ml Intake Free Water 50 ml IV Total 1355.0 ml 788 ml Tube Feeding 720 ml 210 ml Other 50 ml 190 ml Output Urine Total 2350 ml 3500 ml # Bowel Movements 2 Objective General: intubated, unable to follow command, open eyes. HEENT: NCAT, sclera anicteric, PERRL, ET tube. Neck: Supple, no significant jugular venous distention, Lungs: mechanical breath sounds, decreased air at bases,, no Wheeze or Rales. Heart: Regular rate and rhythm, normal S1/S2, no murmurs. Abdomen: soft, nontender, nondistended. + BS, PEG site intact. : Vargas cath. Extremities: No Cyanosis , clubbing or edema. Neuro: unable to follow command, functional quadriplegia, Skin: warm, no rash. Assessment/Plan Assessment/Plan ASSESSMENT: This is a 59-year-old male. 1. Shortness of breath. 2. Hypoxia. 3. Right lower lobe pneumonia=enterobacter, pseudamonas, and staph aureus 4. Acute respiratory failure. 5. History of cerebrovascular accident. 6. Seizure disorder. 7. Functional quadriplegia. 8. Schizophrenia. 9. Dysphagia. 10. Urinary tract infection=proteus mirabilis 11. Sinus Tachycardia 12. Inceased tube feed residuals TREATMENT: 1. Respiratory failure/pneumonia. Intubated; A pulmonary consultation has been obtained with Dr. Ana Maria Hansen. Antibiotics= vancomycin, micafungin, amikacin, meropenem. ID=Dr Stokes 2. Seizure disorder. Continue Keppra, Depakote as above. 3. Functional quadriplegia. 4. Schizophrenia. Continue Risperdal as above. 5. Dysphagia. The patient is status post PEG. 6. Cardiology=Dr Diaz 7. GI=Vosoghi tolerated tube feeding at 60 cc/hr CODE STATUS: Full code DVT prophylaxis: Heparin subcu Marky Go MD May 14, 2020 20:07
[2020-05-14] MEDS: Iron Sucrose 100 MG in NS 55 ML IV SCH (20:33)
[2020-05-15] VITALS (53 sets, daily range): BP systolic 82–160; BP diastolic 33–100
[2020-05-15] MEDS: Metoclopramide 10mg/10ml Liq GT SCH ×3 (05:42→17:45)
[2020-05-15] MEDS: Midodrine 10mg tab GT SCH ×3 (05:42→21:09)
[2020-05-15] MEDS: Meropenem 1 GM in NS 55 ML IVPB SCH ×3 (05:42→21:10)
[2020-05-15] MEDS: Digoxin 0.125mg tab GT SCH (08:34)
[2020-05-15] MEDS: Pantoprazole Inj IVP SCH (08:37)
[2020-05-15] MEDS: Acetaminophen 650mg/20.3ml GT PRN (08:39)
[2020-05-15] MEDS: Aspirin Baby 81mg GT SCH (08:40)
[2020-05-15] MEDS: levETIRAcetam 500mg/5ml Liquid GT SCH ×2 (08:40→21:04)
[2020-05-15] MEDS: Docusate 100mg/10ml Liq GT SCH ×2 (08:41→21:04)
[2020-05-15] MEDS: Heparin 5000 units/ml inj SUBQ SCH ×2 (08:42→21:09)
[2020-05-15] MEDS: fentaNYL 2500mcg/NS 250ml 250 ML IV SCH ×2 (09:01→18:35)
[2020-05-15] MEDS: Vancomycin 750 MG in NS 275 ML IVPB SCH ×2 (10:59→21:10)
[2020-05-15] MEDS: Micafungin 100 MG in NS 110 ML IVPB SCH (12:23)
--- NOTE | 2020-05-15 13:40 | Nephrology Progress Note ---
Assessment/Plan Problem List: (1) Electrolyte imbalance (2) Dehydration (3) Acute respiratory failure (4) Seizure disorder Assessment Severe electrolyte abnormalities Low magnesium, low phosphorus, low potassium, Other active conditions: (1) Acute respiratory failure (2) Sepsis (3) Nosocomial pneumonia (4) Seizure disorder (5) Dehydration (6) COPD (chronic obstructive pulmonary disease) (7) [facility] resident (8) History of CVA (cerebrovascular accident) Plan May 15: No labs done today. Stable from renal standpoint of view. Will check lab tomorrow. Continue per consultants. May 14: Lab reviewed. Potassium phosphate IV given. Remains tachycardic. Continue per consultants. May 13: Lab reviewed. Potassium supplements given. Patient has diarrhea. Tolerating G-tube feeding as per ASAD Perez. Reglan and erythromycin IV discontinued. Continue to monitor renal parameters. Low-dose digoxin started. May 12: Labs reviewed. Magnesium, potassium, phosphorus supplement given. IV digoxin repeated. IV fluids stopped. May 11: Renal parameters stable. Continue digoxin for tachycardia. May 10: Tachycardia improved. Renal parameters stable. Continue per consultants. May 09: Patient remains tachycardic. 2D echocardiogram done results pending. 1 dose of IV digoxin ordered. Discussed with ASAD Dixon. Remains stable from renal standpoint of view. May 08: Magnesium sulfate IV ordered for hypomagnesemia. Patient has metabolic acidosis. IV sodium bicarb given. Feeding on hold due to residual. IV Reglan ordered. IV fluid changed to D10 normal saline. 2D echocardiogram ordered for tachycardia. Chest x-ray suggests worsening pulmonary infiltrate. Discussed with ASAD Stevens Remains stable from renal standpoint of view Discussed with ASAD mag , phosphorus and potassium supplement as needed Monitor electrolytes Continue per consultants Subjective ROS Limited/Unobtainable: Yes Objective Objective Last 24 Hour Vital Signs Date Time Temp Pulse Resp B/P (MAP) Pulse Ox O2 Delivery O2 Flow Rate FiO2 05/15/20 13:00 23 119/72 Mechanical Ventilator 05/15/20 13:00 98 18 100 Mechanical Ventilator 60 05/15/20 12:30 99 26 130/72 100 Mechanical Ventilator 60 05/15/20 12:08 Endotracheal Tube 05/15/20 12:05 96 05/15/20 12:01 60 05/15/20 12:00 98.1 100 23 133/92 98 Mechanical Ventilator 60 05/15/20 11:36 97 23 154/79 100 Mechanical Ventilator 60 05/15/20 11:00 98 22 130/88 100 Mechanical Ventilator 60 05/15/20 11:00 23 130/88 Mechanical Ventilator 05/15/20 11:00 23 154/79 Mechanical Ventilator 05/15/20 11:00 98 22 130/88 100 05/15/20 10:45 100 26 132/66 99 Mechanical Ventilator 60 05/15/20 10:30 96 21 130/76 99 Mechanical Ventilator 60 05/15/20 10:15 97 18 134/100 98 Mechanical Ventilator 60 05/15/20 10:00 98 19 133/72 97 Mechanical Ventilator 60 05/15/20 10:00 20 134/100 Mechanical Ventilator 05/15/20 09:45 97 19 117/69 89 Mechanical Ventilator 60 05/15/20 09:30 90 19 94/63 100 Mechanical Ventilator 60 05/15/20 09:15 96 15 105/79 97 Mechanical Ventilator 60 05/15/20 09:09 99.9 05/15/20 09:01 18 96/53 Mechanical Ventilator 05/15/20 09:00 103 20 91/49 98 Mechanical Ventilator 60 05/15/20 08:45 105 20 96/53 98 Mechanical Ventilator 60 05/15/20 08:35 109 112/55 05/15/20 08:34 112 05/15/20 08:30 109 20 112/55 99 Mechanical Ventilator 60 05/15/20 08:15 114 21 117/61 99 Mechanical Ventilator 60 05/15/20 08:00 99 05/15/20 08:00 Endotracheal Tube 05/15/20 08:00 21 117/61 Mechanical Ventilator 05/15/20 08:00 100.1 110 21 129/59 99 Mechanical Ventilator 60 05/15/20 08:00 60 05/15/20 07:00 93 21 91/51 100 Mechanical Ventilator 60 05/15/20 07:00 21 91/51 Mechanical Ventilator 60 05/15/20 07:00 109 23 60 05/15/20 06:46 95 21 93/33 100 Mechanical Ventilator 60 05/15/20 06:30 98 22 87/45 100 Mechanical Ventilator 60 05/15/20 06:30 98 22 05/15/20 06:00 21 98/53 Mechanical Ventilator 60 05/15/20 06:00 100 21 98/53 100 Mechanical Ventilator 60 05/15/20 05:30 105 16 90/52 100 Mechanical Ventilator 60 05/15/20 05:06 121 28 60 05/15/20 05:00 22 140/85 Mechanical Ventilator 60 05/15/20 05:00 119 22 140/85 99 Mechanical Ventilator 60 05/15/20 04:30 119 25 144/69 98 Mechanical Ventilator 60 05/15/20 04:00 27 133/87 Mechanical Ventilator 60 05/15/20 04:00 Endotracheal Tube 05/15/20 04:00 99.3 112 27 133/87 99 Mechanical Ventilator 60 05/15/20 04:00 60 05/15/20 04:00 112 05/15/20 03:30 110 34 115/72 92 Mechanical Ventilator 60 05/15/20 03:00 19 110/65 Mechanical Ventilator 60 05/15/20 03:00 103 19 110/65 99 Mechanical Ventilator 60 05/15/20 02:36 115 26 60 05/15/20 02:30 115 27 149/81 99 Mechanical Ventilator 60 05/15/20 02:00 25 155/92 Mechanical Ventilator 60 05/15/20 02:00 117 25 155/92 100 Mechanical Ventilator 60 05/15/20 01:49 117 23 60 05/15/20 01:30 107 23 148/76 100 Mechanical Ventilator 60 05/15/20 01:00 116 27 160/79 99 Mechanical Ventilator 60 05/15/20 01:00 27 160/79 Mechanical Ventilator 60 05/15/20 00:30 116 24 149/74 98 Mechanical Ventilator 60 05/15/20 00:00 60 05/15/20 00:00 Endotracheal Tube 05/15/20 00:00 25 143/85 Mechanical Ventilator 60 05/15/20 00:00 100.0 116 25 143/85 98 Mechanical Ventilator 60 05/15/20 00:00 116 05/14/20 23:30 105 21 107/63 99 Mechanical Ventilator 60 05/14/20 23:22 20 115/70 Mechanical Ventilator 60 05/14/20 23:07 112 28 60 05/14/20 23:00 108 23 131/70 99 Mechanical Ventilator 60 05/14/20 23:00 23 131/70 Mechanical Ventilator 60 05/14/20 22:30 110 23 117/91 100 Mechanical Ventilator 60 05/14/20 22:00 116 28 155/87 98 Mechanical Ventilator 60 05/14/20 22:00 28 155/87 Mechanical Ventilator 60 05/14/20 21:30 120 30 151/100 97 Mechanical Ventilator 60 05/14/20 21:00 28 132/86 Mechanical Ventilator 60 05/14/20 21:00 116 28 132/86 97 Mechanical Ventilator 60 05/14/20 20:40 125 30 60 05/14/20 20:36 123 145/86 05/14/20 20:30 121 27 145/86 96 Mechanical Ventilator 60 05/14/20 20:00 99.8 124 29 137/80 94 Mechanical Ventilator 60 05/14/20 20:00 Endotracheal Tube 05/14/20 20:00 29 137/80 Mechanical Ventilator 60 05/14/20 20:00 60 05/14/20 19:45 132 27 156/85 93 Mechanical Ventilator 60 05/14/20 19:30 128 30 139/107 96 Mechanical Ventilator 60 05/14/20 19:23 129 05/14/20 19:13 129 21 60 05/14/20 19:00 129 28 145/75 93 Mechanical Ventilator 60 05/14/20 18:30 132 27 141/82 97 Mechanical Ventilator 60 05/14/20 18:00 120 23 128/61 97 Mechanical Ventilator 60 05/14/20 17:30 108 21 79/41 100 Mechanical Ventilator 60 05/14/20 17:21 104 22 60 05/14/20 17:05 109 21 89/47 100 Mechanical Ventilator 60 05/14/20 16:30 113 24 125/64 98 Mechanical Ventilator 60 05/14/20 16:30 103 21 84/48 100 Mechanical Ventilator 60 05/14/20 16:00 103 05/14/20 16:00 98.9 109 20 102/75 100 Mechanical Ventilator 60 05/14/20 16:00 109 20 102/75 100 Mechanical Ventilator 60 05/14/20 16:00 60 05/14/20 16:00 Mechanical Ventilator 05/14/20 15:30 117 20 117/60 99 Mechanical Ventilator 60 05/14/20 15:03 27 109/56 Mechanical Ventilator 60 05/14/20 15:00 118 23 119/65 99 Mechanical Ventilator 60 05/14/20 14:30 106 22 103/58 100 Mechanical Ventilator 60 05/14/20 14:30 105 20 60 05/14/20 14:00 105 22 145/91 100 Mechanical Ventilator 60 Intake and Output 05/14/20 05/15/20 19:00 07:00 Intake Total 2238.89164 ml 1685 ml Output Total 3250 ml 3680 ml Balance -1011.57007 ml -1995 ml Intake Free Water 140 ml IV Total 1328.32352 ml 805 ml Tube Feeding 720 ml 720 ml Other 50 ml 160 ml Output Urine Total 3250 ml 3680 ml # Bowel Movements 3 2 Height (Feet): 5 Height (Inches): 8.00 Weight (Pounds): 145 General Appearance: no apparent distress EENT: other - Trach to vent Cardiovascular: tachycardia Respiratory/Chest: decreased breath sounds Abdomen: soft Objective No change Kin Bustillo MD May 15, 2020 13:40
--- NOTE | 2020-05-15 14:11 | Pulmonolgy Critical Care Note ---
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 (3) Sepsis (4) Nosocomial pneumonia (5) Seizure disorder (6) Dehydration (7) COPD (chronic obstructive pulmonary disease) (8) [facility] resident (9) History of CVA (cerebrovascular accident) (10) Muscle wasting and atrophy, not elsewhere classified, multiple sites Respiratory: monitor respiratory rate, adjust FIO2, CXR Cardiac: continue to monitor HR/BP Renal: F/U I&O, keep IV fluid, check electrolytes Infectious Disease: check cultures, continue antibiotics Gastrointestinal: continue feedings/current rate Endocrine: monitor blood sugar, continue sliding scale insulin Hematologic: monitor H/H, transfuse if hgb<8.5 Neurologic: PRN Ativan, keep patient comfortable Affect: PRN ativan Prophylaxis: Protonix Time Spent (Minutes): 40 Notes Reviewed: manager research and development, 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, consultants, transplant case managermanager agricultural - Objective Last 24 Hour Vital Signs Date Time Temp Pulse Resp B/P (MAP) Pulse Ox O2 Delivery O2 Flow Rate FiO2 05/15/20 13:00 23 119/72 Mechanical Ventilator 05/15/20 13:00 98 18 100 Mechanical Ventilator 60 05/15/20 12:30 99 26 130/72 100 Mechanical Ventilator 60 05/15/20 12:08 Endotracheal Tube 05/15/20 12:05 96 05/15/20 12:01 60 05/15/20 12:00 98.1 100 23 133/92 98 Mechanical Ventilator 60 05/15/20 11:36 97 23 154/79 100 Mechanical Ventilator 60 05/15/20 11:00 98 22 130/88 100 Mechanical Ventilator 60 05/15/20 11:00 23 130/88 Mechanical Ventilator 05/15/20 11:00 23 154/79 Mechanical Ventilator 05/15/20 11:00 98 22 130/88 100 05/15/20 10:45 100 26 132/66 99 Mechanical Ventilator 60 05/15/20 10:30 96 21 130/76 99 Mechanical Ventilator 60 05/15/20 10:15 97 18 134/100 98 Mechanical Ventilator 60 05/15/20 10:00 98 19 133/72 97 Mechanical Ventilator 60 05/15/20 10:00 20 134/100 Mechanical Ventilator 05/15/20 09:45 97 19 117/69 89 Mechanical Ventilator 60 05/15/20 09:30 90 19 94/63 100 Mechanical Ventilator 60 05/15/20 09:15 96 15 105/79 97 Mechanical Ventilator 60 05/15/20 09:09 99.9 05/15/20 09:01 18 96/53 Mechanical Ventilator 05/15/20 09:00 103 20 91/49 98 Mechanical Ventilator 60 05/15/20 08:45 105 20 96/53 98 Mechanical Ventilator 60 05/15/20 08:35 109 112/55 05/15/20 08:34 112 05/15/20 08:30 109 20 112/55 99 Mechanical Ventilator 60 05/15/20 08:15 114 21 117/61 99 Mechanical Ventilator 60 05/15/20 08:00 99 05/15/20 08:00 Endotracheal Tube 05/15/20 08:00 21 117/61 Mechanical Ventilator 05/15/20 08:00 100.1 110 21 129/59 99 Mechanical Ventilator 60 05/15/20 08:00 60 05/15/20 07:00 93 21 91/51 100 Mechanical Ventilator 60 05/15/20 07:00 21 91/51 Mechanical Ventilator 60 05/15/20 07:00 109 23 60 05/15/20 06:46 95 21 93/33 100 Mechanical Ventilator 60 05/15/20 06:30 98 22 87/45 100 Mechanical Ventilator 60 05/15/20 06:30 98 22 05/15/20 06:00 21 98/53 Mechanical Ventilator 60 05/15/20 06:00 100 21 98/53 100 Mechanical Ventilator 60 05/15/20 05:30 105 16 90/52 100 Mechanical Ventilator 60 05/15/20 05:06 121 28 60 05/15/20 05:00 22 140/85 Mechanical Ventilator 60 05/15/20 05:00 119 22 140/85 99 Mechanical Ventilator 60 05/15/20 04:30 119 25 144/69 98 Mechanical Ventilator 60 05/15/20 04:00 27 133/87 Mechanical Ventilator 60 05/15/20 04:00 Endotracheal Tube 05/15/20 04:00 99.3 112 27 133/87 99 Mechanical Ventilator 60 05/15/20 04:00 60 05/15/20 04:00 112 05/15/20 03:30 110 34 115/72 92 Mechanical Ventilator 60 05/15/20 03:00 19 110/65 Mechanical Ventilator 60 05/15/20 03:00 103 19 110/65 99 Mechanical Ventilator 60 05/15/20 02:36 115 26 60 05/15/20 02:30 115 27 149/81 99 Mechanical Ventilator 60 05/15/20 02:00 25 155/92 Mechanical Ventilator 60 05/15/20 02:00 117 25 155/92 100 Mechanical Ventilator 60 05/15/20 01:49 117 23 60 05/15/20 01:30 107 23 148/76 100 Mechanical Ventilator 60 05/15/20 01:00 116 27 160/79 99 Mechanical Ventilator 60 05/15/20 01:00 27 160/79 Mechanical Ventilator 60 05/15/20 00:30 116 24 149/74 98 Mechanical Ventilator 60 05/15/20 00:00 60 05/15/20 00:00 Endotracheal Tube 05/15/20 00:00 25 143/85 Mechanical Ventilator 60 05/15/20 00:00 100.0 116 25 143/85 98 Mechanical Ventilator 60 05/15/20 00:00 116 05/14/20 23:30 105 21 107/63 99 Mechanical Ventilator 60 05/14/20 23:22 20 115/70 Mechanical Ventilator 60 05/14/20 23:07 112 28 60 05/14/20 23:00 108 23 131/70 99 Mechanical Ventilator 60 05/14/20 23:00 23 131/70 Mechanical Ventilator 60 05/14/20 22:30 110 23 117/91 100 Mechanical Ventilator 60 05/14/20 22:00 116 28 155/87 98 Mechanical Ventilator 60 05/14/20 22:00 28 155/87 Mechanical Ventilator 60 05/14/20 21:30 120 30 151/100 97 Mechanical Ventilator 60 05/14/20 21:00 28 132/86 Mechanical Ventilator 60 05/14/20 21:00 116 28 132/86 97 Mechanical Ventilator 60 05/14/20 20:40 125 30 60 05/14/20 20:36 123 145/86 05/14/20 20:30 121 27 145/86 96 Mechanical Ventilator 60 05/14/20 20:00 99.8 124 29 137/80 94 Mechanical Ventilator 60 05/14/20 20:00 Endotracheal Tube 05/14/20 20:00 29 137/80 Mechanical Ventilator 60 05/14/20 20:00 60 05/14/20 19:45 132 27 156/85 93 Mechanical Ventilator 60 05/14/20 19:30 128 30 139/107 96 Mechanical Ventilator 60 05/14/20 19:23 129 05/14/20 19:13 129 21 60 05/14/20 19:00 129 28 145/75 93 Mechanical Ventilator 60 05/14/20 18:30 132 27 141/82 97 Mechanical Ventilator 60 05/14/20 18:00 120 23 128/61 97 Mechanical Ventilator 60 05/14/20 17:30 108 21 79/41 100 Mechanical Ventilator 60 05/14/20 17:21 104 22 60 05/14/20 17:05 109 21 89/47 100 Mechanical Ventilator 60 05/14/20 16:30 113 24 125/64 98 Mechanical Ventilator 60 05/14/20 16:30 103 21 84/48 100 Mechanical Ventilator 60 05/14/20 16:00 103 05/14/20 16:00 98.9 109 20 102/75 100 Mechanical Ventilator 60 05/14/20 16:00 109 20 102/75 100 Mechanical Ventilator 60 05/14/20 16:00 60 05/14/20 16:00 Mechanical Ventilator 05/14/20 15:30 117 20 117/60 99 Mechanical Ventilator 60 05/14/20 15:03 27 109/56 Mechanical Ventilator 60 05/14/20 15:00 118 23 119/65 99 Mechanical Ventilator 60 05/14/20 14:30 106 22 103/58 100 Mechanical Ventilator 60 05/14/20 14:30 105 20 60 Status: sedated Condition: critical HEENT: atraumatic, normocephalic Lungs: rales, rhonchi Heart: HR/BP stable Abdomen: soft, active bowel sounds Extremities: no C/C/E Critical Care - Subjective ROS Limited/Unobtainable: Yes Condition: critical Vent Support Breath Rate: 20 Vent Support Mode: AC Vent Tidal Volume: 600 Sputum Amount: Small PEEP: 0.0 PIP: 29 Tube Feeding Amount: 60 I&O: Intake and Output 05/14/20 05/15/20 19:00 07:00 Intake Total 2238.88379 ml 1685 ml Output Total 3250 ml 3680 ml Balance -1011.62019 ml -1995 ml Intake Free Water 140 ml IV Total 1328.30680 ml 805 ml Tube Feeding 720 ml 720 ml Other 50 ml 160 ml Output Urine Total 3250 ml 3680 ml # Bowel Movements 3 2 CXR: no change ET-Tube: 7.5 ET Position: 24 Ana Maria Hansen MD May 15, 2020 14:11
--- NOTE | 2020-05-15 14:22 | Cardiac Electrophysiology PN ---
Assessment/Plan Assessment/Plan 1. Sinus tachycardia with no evidence of atrial fibrillation or SVT due to sepsis and pneumonia. Echo showed ejection fraction of 55%. 2. Transient Atrial fib. On Dig 0.125 and Lopressor 25 bid 3. Respiratory failure, currently on the ventilator and iv Abx. Has thick secretions Echocardiogram showed normal left ventricular systolic function but brain natriuretic peptide is almost 4000. Continue Lasix 40 iv bid. 4. History of seizure disorder. 5. Dysphagia, status post PEG placement. 6. COPD, nosocomial pneumonia. 7. History of CVA. JEANNA RN Subjective Subjective In ICU on the Vent on fentanyl drip and off Levophed. Fio2 50%. Objective Last 24 Hour Vital Signs Date Time Temp Pulse Resp B/P (MAP) Pulse Ox O2 Delivery O2 Flow Rate FiO2 05/15/20 13:00 23 119/72 Mechanical Ventilator 05/15/20 13:00 98 18 100 Mechanical Ventilator 60 05/15/20 12:30 99 26 130/72 100 Mechanical Ventilator 60 05/15/20 12:08 Endotracheal Tube 05/15/20 12:05 96 05/15/20 12:01 60 05/15/20 12:00 98.1 100 23 133/92 98 Mechanical Ventilator 60 05/15/20 11:36 97 23 154/79 100 Mechanical Ventilator 60 05/15/20 11:00 98 22 130/88 100 Mechanical Ventilator 60 05/15/20 11:00 23 130/88 Mechanical Ventilator 05/15/20 11:00 23 154/79 Mechanical Ventilator 05/15/20 11:00 98 22 130/88 100 05/15/20 10:45 100 26 132/66 99 Mechanical Ventilator 60 05/15/20 10:30 96 21 130/76 99 Mechanical Ventilator 60 05/15/20 10:15 97 18 134/100 98 Mechanical Ventilator 60 05/15/20 10:00 98 19 133/72 97 Mechanical Ventilator 60 05/15/20 10:00 20 134/100 Mechanical Ventilator 05/15/20 09:45 97 19 117/69 89 Mechanical Ventilator 60 05/15/20 09:30 90 19 94/63 100 Mechanical Ventilator 60 05/15/20 09:15 96 15 105/79 97 Mechanical Ventilator 60 05/15/20 09:09 99.9 05/15/20 09:01 18 96/53 Mechanical Ventilator 05/15/20 09:00 103 20 91/49 98 Mechanical Ventilator 60 05/15/20 08:45 105 20 96/53 98 Mechanical Ventilator 60 05/15/20 08:35 109 112/55 05/15/20 08:34 112 05/15/20 08:30 109 20 112/55 99 Mechanical Ventilator 60 05/15/20 08:15 114 21 117/61 99 Mechanical Ventilator 60 05/15/20 08:00 99 05/15/20 08:00 Endotracheal Tube 05/15/20 08:00 21 117/61 Mechanical Ventilator 05/15/20 08:00 100.1 110 21 129/59 99 Mechanical Ventilator 60 05/15/20 08:00 60 05/15/20 07:00 93 21 91/51 100 Mechanical Ventilator 60 05/15/20 07:00 21 91/51 Mechanical Ventilator 60 05/15/20 07:00 109 23 60 05/15/20 06:46 95 21 93/33 100 Mechanical Ventilator 60 05/15/20 06:30 98 22 87/45 100 Mechanical Ventilator 60 05/15/20 06:30 98 22 05/15/20 06:00 21 98/53 Mechanical Ventilator 60 05/15/20 06:00 100 21 98/53 100 Mechanical Ventilator 60 05/15/20 05:30 105 16 90/52 100 Mechanical Ventilator 60 05/15/20 05:06 121 28 60 05/15/20 05:00 22 140/85 Mechanical Ventilator 60 05/15/20 05:00 119 22 140/85 99 Mechanical Ventilator 60 05/15/20 04:30 119 25 144/69 98 Mechanical Ventilator 60 05/15/20 04:00 27 133/87 Mechanical Ventilator 60 05/15/20 04:00 Endotracheal Tube 05/15/20 04:00 99.3 112 27 133/87 99 Mechanical Ventilator 60 05/15/20 04:00 60 05/15/20 04:00 112 05/15/20 03:30 110 34 115/72 92 Mechanical Ventilator 60 05/15/20 03:00 19 110/65 Mechanical Ventilator 60 05/15/20 03:00 103 19 110/65 99 Mechanical Ventilator 60 05/15/20 02:36 115 26 60 05/15/20 02:30 115 27 149/81 99 Mechanical Ventilator 60 05/15/20 02:00 25 155/92 Mechanical Ventilator 60 05/15/20 02:00 117 25 155/92 100 Mechanical Ventilator 60 05/15/20 01:49 117 23 60 05/15/20 01:30 107 23 148/76 100 Mechanical Ventilator 60 05/15/20 01:00 116 27 160/79 99 Mechanical Ventilator 60 05/15/20 01:00 27 160/79 Mechanical Ventilator 60 05/15/20 00:30 116 24 149/74 98 Mechanical Ventilator 60 05/15/20 00:00 60 05/15/20 00:00 Endotracheal Tube 05/15/20 00:00 25 143/85 Mechanical Ventilator 60 05/15/20 00:00 100.0 116 25 143/85 98 Mechanical Ventilator 60 05/15/20 00:00 116 05/14/20 23:30 105 21 107/63 99 Mechanical Ventilator 60 05/14/20 23:22 20 115/70 Mechanical Ventilator 60 05/14/20 23:07 112 28 60 05/14/20 23:00 108 23 131/70 99 Mechanical Ventilator 60 05/14/20 23:00 23 131/70 Mechanical Ventilator 60 05/14/20 22:30 110 23 117/91 100 Mechanical Ventilator 60 05/14/20 22:00 116 28 155/87 98 Mechanical Ventilator 60 05/14/20 22:00 28 155/87 Mechanical Ventilator 60 05/14/20 21:30 120 30 151/100 97 Mechanical Ventilator 60 05/14/20 21:00 28 132/86 Mechanical Ventilator 60 05/14/20 21:00 116 28 132/86 97 Mechanical Ventilator 60 05/14/20 20:40 125 30 60 05/14/20 20:36 123 145/86 05/14/20 20:30 121 27 145/86 96 Mechanical Ventilator 60 05/14/20 20:00 99.8 124 29 137/80 94 Mechanical Ventilator 60 05/14/20 20:00 Endotracheal Tube 05/14/20 20:00 29 137/80 Mechanical Ventilator 60 05/14/20 20:00 60 05/14/20 19:45 132 27 156/85 93 Mechanical Ventilator 60 05/14/20 19:30 128 30 139/107 96 Mechanical Ventilator 60 05/14/20 19:23 129 05/14/20 19:13 129 21 60 05/14/20 19:00 129 28 145/75 93 Mechanical Ventilator 60 05/14/20 18:30 132 27 141/82 97 Mechanical Ventilator 60 05/14/20 18:00 120 23 128/61 97 Mechanical Ventilator 60 05/14/20 17:30 108 21 79/41 100 Mechanical Ventilator 60 05/14/20 17:21 104 22 60 05/14/20 17:05 109 21 89/47 100 Mechanical Ventilator 60 05/14/20 16:30 113 24 125/64 98 Mechanical Ventilator 60 05/14/20 16:30 103 21 84/48 100 Mechanical Ventilator 60 05/14/20 16:00 103 05/14/20 16:00 98.9 109 20 102/75 100 Mechanical Ventilator 60 05/14/20 16:00 109 20 102/75 100 Mechanical Ventilator 60 05/14/20 16:00 60 05/14/20 16:00 Mechanical Ventilator 05/14/20 15:30 117 20 117/60 99 Mechanical Ventilator 60 05/14/20 15:03 27 109/56 Mechanical Ventilator 60 05/14/20 15:00 118 23 119/65 99 Mechanical Ventilator 60 05/14/20 14:30 106 22 103/58 100 Mechanical Ventilator 60 05/14/20 14:30 105 20 60 Intake and Output 05/14/20 05/15/20 19:00 07:00 Intake Total 2238.34169 ml 1685 ml Output Total 3250 ml 3680 ml Balance -1011.10477 ml -1995 ml Intake Free Water 140 ml IV Total 1328.01506 ml 805 ml Tube Feeding 720 ml 720 ml Other 50 ml 160 ml Output Urine Total 3250 ml 3680 ml # Bowel Movements 3 2 Objective HEAD AND NECK: No JVD. He is orally intubated. LUNGS: Coarse rhonchi. CARDIOVASCULAR: Shows tachycardic S1 and S2 with no gallop. ABDOMEN: Status post G-tube. EXTREMITIES: 1+ pitting edema. Trace Diaz MD May 15, 2020 14:22
[2020-05-15] MEDS: LORazepam Inj 2mg/ml 1ml IV PRN (15:07)
--- NOTE | 2020-05-15 15:28 | Internal Med Progress Note ---
Subjective Date of Service: May 15, 2020 Physician Name Obey Cisneros Attending Physician Marky Go MD Current Medications Medications (Trade) Dose Ordered Sig/Damion Route PRN Reason Start Time Stop Time Status Last Admin Dose Admin Acetaminophen (Tylenol) 650 mg Q4H PRN GT fever 05/02/20 12:45 06/01/20 12:44 05/15/20 08:39 Amikacin Protocol (Amikacin pharmacy to dose) 1 ea DAILY PRN MISC Per rx protocol 05/12/20 16:15 06/11/20 16:14 Amikacin Sulfate 1000 mg/Sodium Chloride 114 ml @ 114 mls/hr Q36H IV 05/14/20 06:00 05/21/20 05:59 05/14/20 05:34 Aspirin (ASA) 81 mg DAILY GT 05/05/20 09:00 06/19/20 08:59 05/14/20 08:40 Chlorhexidine Gluconate (Marci-Hex 2%) 1 applic DAILY@2000 TOPIC 05/03/20 20:00 08/01/20 19:59 05/14/20 19:36 Digoxin (Lanoxin) 0.125 mg DAILY GT 05/14/20 09:00 08/12/20 08:59 05/15/20 08:34 Docusate Sodium (Colace) 100 mg EVERY 12 HOURS GT 05/10/20 21:00 06/09/20 20:59 05/14/20 08:41 Fentanyl Citrate 250 ml @ 0 mls/hr Q24H IV 05/03/20 22:03 08/01/20 22:02 05/15/20 09:01 Furosemide (Lasix) 40 mg EVERY 12 HOURS IV 05/10/20 09:00 06/09/20 08:59 05/15/20 08:37 Heparin Sodium (Porcine) (Heparin 5000 units/ml) 5,000 units EVERY 12 HOURS SUBQ 05/02/20 21:00 06/16/20 20:59 05/14/20 20:35 Levetiracetam (Keppra) 700 mg Q12HR GT 05/02/20 21:00 06/01/20 20:59 05/15/20 08:40 Lorazepam (Ativan 2mg/ml 1ml) 2 mg Q4H PRN IV For Anxiety/seizures 05/10/20 12:45 8/20 12:44 05/15/20 15:07 Meropenem 1 gm/ Sodium Chloride 55 ml @ 110 mls/hr Q8HR IVPB 05/02/20 15:00 05/16/20 23:59 05/15/20 15:06 Metoclopramide HCl (Reglan) 5 mg EVERY 6 HOURS GT 05/13/20 12:00 06/12/20 11:59 05/15/20 05:42 Metoprolol Tartrate (Lopressor) 25 mg Q12HR GT 05/10/20 21:00 08/08/20 08:59 05/15/20 08:35 Micafungin Sodium 100 mg/Sodium Chloride 110 ml @ 110 mls/hr Q24H IVPB 05/11/20 12:00 05/18/20 11:59 05/15/20 12:23 Midodrine (Pro-Amatine) 10 mg Q8HR GT 05/04/20 22:00 08/02/20 21:59 05/15/20 15:06 Ondansetron HCl (Zofran) 4 mg Q6H PRN IVP Nausea & Vomiting 05/02/20 12:45 06/01/20 12:44 Pantoprazole (Protonix) 40 mg DAILY IVP 05/10/20 09:00 06/09/20 08:59 05/15/20 08:37 Polyethylene Glycol (Miralax) 17 gm DAILYPRN PRN GT Constipation 05/02/20 12:45 06/01/20 12:44 Potassium Chloride (K-Dur) 40 meq TWICE A DAY GT 05/12/20 18:00 08/10/20 17:59 05/15/20 08:36 [facility] 1 ea DAILY PRN MISC Per rx protocol 05/05/20 09:45 06/04/20 09:44 Vancomycin HCl 750 mg/Sodium Chloride 275 ml @ 183.333 mls/hr Q12H IVPB 05/12/20 22:00 05/15/20 23:59 05/15/20 10:59 Allergies: Coded Allergies: DIPHENHYDRAMINE (Verified Allergy, Unknown, 02/27/20) ROS Limited/Unobtainable: Yes Subjective 59 YO M admitted with respiratory failure. Now pneumonia. Intubated and sedated. Cover for Int Med-Dr Go. ICU. On pressors Objective Last Vital Signs Date Time Temp Pulse Resp B/P (MAP) Pulse Ox O2 Delivery O2 Flow Rate FiO2 05/15/20 15:00 101 23 151/71 100 Mechanical Ventilator 60 05/15/20 12:00 98.1 05/12/20 17:36 15.0 Intake and Output 05/14/20 05/15/20 19:00 07:00 Intake Total 2238.55524 ml 1685 ml Output Total 3250 ml 3680 ml Balance -1011.63975 ml -1995 ml Intake Free Water 140 ml IV Total 1328.94705 ml 805 ml Tube Feeding 720 ml 720 ml Other 50 ml 160 ml Output Urine Total 3250 ml 3680 ml # Bowel Movements 3 2 Objective PHYSICAL EXAMINATION: GENERAL: The patient is a thin-appearing male, in severe respiratory distress. HEENT: Eyes, pupils equal and responsive to light and accommodation. Extraocular movements are intact. NECK: Supple. No lymphadenopathy. CHEST: Mech Vent; Decreased breath sounds bilaterally without rales. CARDIOVASCULAR: Tachycardic, regular rhythm. S1 and S2 are normal without murmurs, rubs, or gallops. ABDOMEN: Soft, nontender, and nondistended. Positive bowel sounds. No evidence of hepatosplenomegaly. Currently, no rebound or guarding noted. EXTREMITIES: Negative for clubbing, cyanosis, or edema. RECTAL/GENITAL: Not performed. NEUROLOGICAL: Unable to assess Assessment/Plan Assessment/Plan ASSESSMENT: This is a 59-year-old male. 1. Shortness of breath. 2. Hypoxia. 3. Right lower lobe pneumonia=enterobacter, pseudamonas, and staph aureus 4. Acute respiratory failure. 5. History of cerebrovascular accident. 6. Seizure disorder. 7. Functional quadriplegia. 8. Schizophrenia. 9. Dysphagia. 10. Urinary tract infection=proteus mirabilis 11. Sinus Tachycardia 12.Inceased tube feed residuals TREATMENT: 1. Respiratory failure/pneumonia. Intubated; A pulmonary consultation has been obtained with Dr. Ana Maria Hansen. Antibiotics= vancomycin and mycofungin. ID=Dr Stokes 2. Seizure disorder. Continue Keppra, Depakote as above. 3. Functional quadriplegia. 4. Schizophrenia. Continue Risperdal as above. 5. Dysphagia. The patient is status post PEG. 6. Cardiology=Dr Diaz 7. GI=Obey Stahl MD May 15, 2020 15:28
[2020-05-15] MEDS: Amikacin 1,000 MG in NS 110 ML IV SCH (17:45)
[2020-05-15] MEDS: Dyna-Hex 2% Top Sol 2oz TOPIC SCH (21:03)
[2020-05-16] VITALS (63 sets, daily range): BP systolic 84–175; BP diastolic 53–138
[2020-05-16] MEDS: fentaNYL 2500mcg/NS 250ml 250 ML IV SCH (02:30)
[2020-05-16] MEDS: Meropenem 1 GM in NS 55 ML IVPB SCH ×3 (05:58→21:51)
[2020-05-16] MEDS: Metoclopramide 10mg/10ml Liq GT SCH ×4 (05:58→17:56)
[2020-05-16] MEDS: Midodrine 10mg tab GT SCH ×3 (05:58→21:51)
[2020-05-16 06:16] LABS: BASOPHILS % (AUTO) 2.5 % (0.0-2.0); EOSINOPHILS % (AUTO) 1.8 % (0.0-3.0); HEMATOCRIT 28.5 % (42.0-52.0); HEMOGLOBIN 8.9 G/DL (14.2-18.0); LYMPHOCYTES % (AUTO) 15.3 % (20.0-45.0); MEAN CORPUSCULAR VOLUME 98 FL (80-99); MONOCYTES % (AUTO) 10.3 % (1.0-10.0); NEUTROPHILS % (AUTO) 70.2 % (45.0-75.0); PLATELET COUNT 244 K/UL (150-450); RED BLOOD COUNT 2.92 M/UL (4.70-6.10); RED CELL DISTRIBUTION WIDTH 13.8 % (11.6-14.8); WHITE BLOOD COUNT 9.3 K/UL (4.8-10.8)
[2020-05-16] MEDS: Aspirin Baby 81mg GT SCH (08:26)
[2020-05-16] MEDS: Digoxin 0.125mg tab GT SCH (08:27)
[2020-05-16] MEDS: Docusate 100mg/10ml Liq GT SCH ×2 (08:28→20:15)
[2020-05-16] MEDS: Pantoprazole Inj IVP SCH (08:28)
[2020-05-16] MEDS: levETIRAcetam 500mg/5ml Liquid GT SCH ×2 (08:29→20:13)
[2020-05-16 08:31] LABS: ALANINE AMINOTRANSFERASE 15 U/L (12-78); ALBUMIN 1.5 G/DL (3.4-5.0); ALBUMIN/GLOBULIN RATIO 0.4 (1.0-2.7); ALKALINE PHOSPHATASE 56 U/L (46-116); ASPARTATE AMINO TRANSFERASE 16 U/L (15-37); BILIRUBIN,TOTAL 0.5 MG/DL (0.2-1.0); BLOOD UREA NITROGEN 26 mg/dL (7-18); CALCIUM 8.7 MG/DL (8.5-10.1); CHLORIDE 99 MMOL/L (98-107); CREATININE 0.8 MG/DL (0.55-1.30); PHOSPHORUS 3.4 MG/DL (2.5-4.9); POTASSIUM 3.6 MMOL/L (3.5-5.1); SODIUM 146 MMOL/L (136-145)
[2020-05-16] MEDS: Heparin 5000 units/ml inj SUBQ SCH ×2 (08:31→20:14)
[2020-05-16 09:06] LABS: CARBON DIOXIDE > 45 MMOL/L (21-32)
[2020-05-16] MEDS ORDERED: Tubing IV Secondary IV ONE ×3 (09:48→12:43)
[2020-05-16] MEDS ORDERED: D5NS 1000ml IV ONE (09:48)
[2020-05-16] MEDS ORDERED: NS 275ml ONE ×4 (09:48→12:43)
--- NOTE | 2020-05-16 09:48 | Diagnostic Imaging Report ---
EXAM: XR Chest, 1 View CLINICAL HISTORY: DYSPNEA TECHNIQUE: Frontal view of the chest. COMPARISON: May 14, 2020. FINDINGS: Distal tip of ET tube is 3 cm above westley. Distal tip of right-sided central venous catheter is projected over the cavoatrial junction. Several overlying EKG leads and catheters. Cardiac silhouette is within normal limits. Allowing for differences in technique, there is slight interval worsening of previously noted extensive bilateral multifocal infiltrates. Small right pleural effusion. IMPRESSION: Interval worsening of ARDS/bilateral multifocal pneumonia.
--- NOTE | 2020-05-16 10:04 | Infectious Diseases Prog Note ---
Assessment/Plan Assessment: Septic Shock- off pressors now Pneumonia- COVID 19 neg x3(2 on same day) Acute hypoxic resp failure- s/p intubation 05/02 -05/12 CXR: Again demonstrated are extensive right greater than left bilateral infiltrates, probably unchanged allowing for differences in degree of rotation and exposure technique. -05/10 sp cx MDR PsA (I Ceftazidime, Gentamycin), MDR alcaligenes sp ( suspect likely contaminant) -05/08 CXRL Increasing airspace opacities, worse in the right midlung. Increase in small right pleural effusion and probably small left pleural effusion. -05/07 Rapid COVID PCR neg -05/05 Bcx NTD -05/04 CXR: Dense consolidation of the right mid and lower lung, right pleural effusion are unchanged. Left lung and pleural space remain clear. -05/02 Sp cx PsA (pham S), E. aerogenes (R Ancef; otherwise S), MRSA -05/02 CXR: There is a moderately consolidating infiltrate in the right lower lobe consistent with pneumonia. Bcx neg x4 rapid COVID neg, COVI PCR neg - previously neg: -02/26 SARS-COV2 pCR neg; 02/28 SARS-COV 2 pcr neg Probable UTI -u/a wbc 10-15, nit neg, leul +2 ; ucx <10k ESBL. P. mirabilis (S Zosyn, meropenem) Fever (up to 105.3); improving (on cooling blanket) leukocytosis; increased, now improvnig -05/10 u/a neg Bcx NGD TOMAS; SP Recent Sepsis 2ry to ESBL K.pna bacteremia and Pneumonia 02/2020 -Bcx 3/4 ESBL K.pna (S Levo, Meropenem, ZOsyn); 03/01 Bcx Neg -sp cx ESBL K.pna -02/27 sp removal PICC Line; cath tip cx Neg muscle weakness and atrophy (not characterized) psychiatric disorder dysphagia s/p GT [place] resident ( [facility]) Dementia seizure disorder Plan: -Continue Meropenem #15/14 for UTI and PNA and IV Vancomycin #15/14 for MRSA PNA -Cont empiric Micafungin #6 given rise in wbc -Cont Empiric Amikacin #5 for MDRO- seems to have improved on it -05/05 SP Amikacin #4 -05/02 SP CEfepime x1 , Azithromycin x1 Trend WBC, improving on current regimen Trend resp status -f/u cx -Monitor CBC/CMP, temperatures -COVID19 neg x2; ok to dc COVID isolation -ICU/ETT/PEG care -f/u repeat cultures -Cdiff if diarrhea Thank you for consulting [facility]. Will continue to follow along with you. Discussed with RN. Subjective Allergies: Coded Allergies: DIPHENHYDRAMINE (Verified Allergy, Unknown, 02/27/20) AF but with cooling blanket in place Remains intubated, FiO2 60%, satting 100% Not a lot of secretions per RN No pressors Objective Last 24 Hour Vital Signs Date Time Temp Pulse Resp B/P (MAP) Pulse Ox O2 Delivery O2 Flow Rate FiO2 05/16/20 08:27 122 05/16/20 08:25 119 136/85 05/16/20 07:45 50 05/16/20 07:28 106 26 60 05/16/20 07:00 20 94/60 Mechanical Ventilator 60 05/16/20 06:45 99 19 100/56 100 Mechanical Ventilator 60 05/16/20 06:30 100 18 99/53 100 Mechanical Ventilator 60 05/16/20 06:30 98 22 05/16/20 06:15 100 21 97/65 100 Mechanical Ventilator 60 05/16/20 06:00 20 110/64 Mechanical Ventilator 60 05/16/20 06:00 104 19 124/61 99 Mechanical Ventilator 60 05/16/20 05:45 100 18 94/57 100 Mechanical Ventilator 60 05/16/20 05:30 98 18 106/55 100 Mechanical Ventilator 60 05/16/20 05:19 95 20 60 05/16/20 05:15 96 20 102/63 100 Mechanical Ventilator 60 05/16/20 05:00 98 21 110/65 99 Mechanical Ventilator 60 05/16/20 05:00 22 94/60 Mechanical Ventilator 60 05/16/20 04:45 93 23 95/62 99 Mechanical Ventilator 60 05/16/20 04:34 92 15 102/59 96 Mechanical Ventilator 60 05/16/20 04:30 93 18 84/57 98 Mechanical Ventilator 60 05/16/20 04:15 94 17 84/54 100 Mechanical Ventilator 60 05/16/20 04:00 60 05/16/20 04:00 Endotracheal Tube 8/2/20 04:00 84 05/16/20 04:00 98.0 96 21 89/64 100 Mechanical Ventilator 60 05/16/20 04:00 22 84/56 Mechanical Ventilator 60 05/16/20 03:30 96 21 100 Mechanical Ventilator 60 05/16/20 03:30 96 21 85/57 100 Mechanical Ventilator 60 05/16/20 03:03 95 24 60 05/16/20 03:00 98 22 108/62 99 Mechanical Ventilator 60 05/16/20 03:00 20 141/90 Mechanical Ventilator 60 05/16/20 02:30 22 112/81 Mechanical Ventilator 60 05/16/20 02:30 99 23 115/76 98 Mechanical Ventilator 60 05/16/20 02:00 20 114/67 Mechanical Ventilator 60 05/16/20 02:00 95 24 123/72 97 Mechanical Ventilator 60 05/16/20 01:45 90 21 96/64 98 05/16/20 01:30 92 24 112/72 97 Mechanical Ventilator 60 05/16/20 01:30 92 24 112/72 97 05/16/20 01:20 85 21 60 05/16/20 01:15 88 20 141/95 97 Mechanical Ventilator 60 05/16/20 01:15 88 20 141/95 97 05/16/20 01:00 88 21 95/65 99 05/16/20 01:00 21 141/95 Mechanical Ventilator 60 05/16/20 01:00 88 21 95/65 99 Mechanical Ventilator 60 05/16/20 00:45 85 21 91/53 92 05/16/20 00:45 85 21 91/53 92 Mechanical Ventilator 60 05/16/20 00:30 87 21 97/58 97 Mechanical Ventilator 60 05/16/20 00:30 87 21 97/58 97 05/16/20 00:15 89 21 98/66 97 05/16/20 00:00 87 21 98/72 98 Mechanical Ventilator 60 05/16/20 00:00 82 05/16/20 00:00 20 98/62 Mechanical Ventilator 60 05/16/20 00:00 60 05/16/20 00:00 Endotracheal Tube 05/16/20 00:00 87 21 98/72 98 05/15/20 23:30 86 20 100/58 99 Mechanical Ventilator 60 05/15/20 23:17 84 25 60 05/15/20 23:00 86 20 112/76 97 Mechanical Ventilator 60 05/15/20 23:00 21 100/60 Mechanical Ventilator 60 05/15/20 22:30 89 20 98 Mechanical Ventilator 60 05/15/20 22:00 94 19 113/69 99 Mechanical Ventilator 60 05/15/20 22:00 21 97/61 Mechanical Ventilator 60.0 60 05/15/20 21:30 101 21 129/70 94 Mechanical Ventilator 60 05/15/20 21:06 103 112/77 05/15/20 21:05 99 21 60 05/15/20 21:00 103 22 112/77 97 Mechanical Ventilator 60 05/15/20 21:00 22 116/66 Mechanical Ventilator 05/15/20 20:30 108 23 128/80 97 Mechanical Ventilator 60 05/15/20 20:00 60 05/15/20 20:00 24 119/61 Mechanical Ventilator 60.0 05/15/20 20:00 Endotracheal Tube 05/15/20 20:00 112 26 138/81 96 Mechanical Ventilator 60 05/15/20 20:00 87 05/15/20 19:34 100 23 60 05/15/20 19:30 111 25 132/82 95 Mechanical Ventilator 60 05/15/20 19:15 113 27 115/85 97 Mechanical Ventilator 60 05/15/20 19:00 109 24 115/76 96 Mechanical Ventilator 60 05/15/20 18:35 31 126/67 Mechanical Ventilator 05/15/20 18:30 108 18 123/74 98 Mechanical Ventilator 60 05/15/20 18:00 110 18 133/75 100 Mechanical Ventilator 60 05/15/20 17:30 99 18 101/66 100 Mechanical Ventilator 60 05/15/20 17:00 89 18 104/66 100 Mechanical Ventilator 60 05/15/20 17:00 100 20 60 05/15/20 16:34 104 20 94/67 100 Mechanical Ventilator 60 05/15/20 16:00 Endotracheal Tube 05/15/20 16:00 92 20 82/51 100 Mechanical Ventilator 60 05/15/20 16:00 88 05/15/20 16:00 60 05/15/20 15:30 90 20 92/60 100 Mechanical Ventilator 60 05/15/20 15:26 102 21 60 05/15/20 15:00 101 23 151/71 100 Mechanical Ventilator 60 05/15/20 14:30 102 23 147/51 100 Mechanical Ventilator 60 05/15/20 14:00 99 21 136/81 100 Mechanical Ventilator 60 05/15/20 13:30 96 20 124/67 99 Mechanical Ventilator 60 05/15/20 13:00 23 119/72 Mechanical Ventilator 05/15/20 13:00 98 18 100 Mechanical Ventilator 60 05/15/20 12:45 99 21 60 05/15/20 12:30 99 26 130/72 100 Mechanical Ventilator 60 05/15/20 12:08 Endotracheal Tube 05/15/20 12:05 96 05/15/20 12:01 60 05/15/20 12:00 98.1 100 23 133/92 98 Mechanical Ventilator 60 05/15/20 11:36 97 23 154/79 100 Mechanical Ventilator 60 05/15/20 11:00 98 22 130/88 100 Mechanical Ventilator 60 05/15/20 11:00 23 130/88 Mechanical Ventilator 05/15/20 11:00 23 154/79 Mechanical Ventilator 05/15/20 11:00 98 22 130/88 100 05/15/20 10:45 100 26 132/66 99 Mechanical Ventilator 60 05/15/20 10:44 105 23 60 05/15/20 10:30 96 21 130/76 99 Mechanical Ventilator 60 05/15/20 10:15 97 18 134/100 98 Mechanical Ventilator 60 Height (Feet): 5 Height (Inches): 8.00 Weight (Pounds): 135 Gen: Older man, intubated, NAD Pulm: BL chest rise on vent Abd: Non-distended Ext: No c/c/e Skin: No visible rashes Neuro: Sedated Laboratory Tests Test 05/16/20 04:58 05/16/20 07:11 White Blood Count 9.3 K/UL (4.8-10.8) Red Blood Count 2.92 M/UL (4.70-6.10) L Hemoglobin 8.9 G/DL (14.2-18.0) L Hematocrit 28.5 % (42.0-52.0) L Mean Corpuscular Volume 98 FL (80-99) Mean Corpuscular Hemoglobin 30.6 PG (27.0-31.0) Mean Corpuscular Hemoglobin Concent 31.3 G/DL (32.0-36.0) L Red Cell Distribution Width 13.8 % (11.6-14.8) Platelet Count 244 K/UL (150-450) Mean Platelet Volume 8.8 FL (6.5-10.1) Neutrophils (%) (Auto) 70.2 % (45.0-75.0) Lymphocytes (%) (Auto) 15.3 % (20.0-45.0) L Monocytes (%) (Auto) 10.3 % (1.0-10.0) H Eosinophils (%) (Auto) 1.8 % (0.0-3.0) Basophils (%) (Auto) 2.5 % (0.0-2.0) H Sodium Level 146 MMOL/L (136-145) H Potassium Level 3.6 MMOL/L (3.5-5.1) Chloride Level 99 MMOL/L (98-107) Carbon Dioxide Level > 45 MMOL/L (21-32) *H Blood Urea Nitrogen 26 mg/dL (7-18) H Creatinine 0.8 MG/DL (0.55-1.30) Estimat Glomerular Filtration Rate > 60 mL/min (>60) Glucose Level 106 MG/DL (74-106) Calcium Level 8.7 MG/DL (8.5-10.1) Phosphorus Level 3.4 MG/DL (2.5-4.9) Magnesium Level 2.1 MG/DL (1.8-2.4) Total Bilirubin 0.5 MG/DL (0.2-1.0) Aspartate Amino Transf (AST/SGOT) 16 U/L (15-37) Alanine Aminotransferase (ALT/SGPT) 15 U/L (12-78) Alkaline Phosphatase 56 U/L (46-116) Total Protein 5.5 G/DL (6.4-8.2) L Albumin 1.5 G/DL (3.4-5.0) L Globulin 4.0 g/dL Albumin/Globulin Ratio 0.4 (1.0-2.7) L Arterial Blood pH 7.491 (7.350-7.450) Arterial Blood Partial Pressure CO2 64.6 mmHg (35.0-45.0) *H Arterial Blood Partial Pressure O2 101.6 mmHg (75.0-100.0) H Arterial Blood HCO3 48.2 mmol/L (22.0-26.0) *H Arterial Blood Oxygen Saturation 97.1 % (95-100) Arterial Blood Base Excess 22.1 (-2-2) *H Nicolas Test Positive Current Medications Medications (Trade) Dose Ordered Sig/Damion Route PRN Reason Start Time Stop Time Status Last Admin Dose Admin Acetaminophen (Tylenol) 650 mg Q4H PRN GT fever 05/02/20 12:45 06/01/20 12:44 05/15/20 08:39 Amikacin Protocol (Amikacin pharmacy to dose) 1 ea DAILY PRN MISC Per rx protocol 05/12/20 16:15 06/11/20 16:14 Amikacin Sulfate 1000 mg/Sodium Chloride 114 ml @ 114 mls/hr Q36H IV 05/14/20 06:00 05/21/20 05:59 05/15/20 17:45 Aspirin (ASA) 81 mg DAILY GT 05/05/20 09:00 06/19/20 08:59 05/16/20 08:26 Chlorhexidine Gluconate (Marci-Hex 2%) 1 applic DAILY@2000 TOPIC 05/03/20 20:00 08/01/20 19:59 05/15/20 21:03 Digoxin (Lanoxin) 0.125 mg DAILY GT 05/14/20 09:00 08/12/20 08:59 05/16/20 08:27 Docusate Sodium (Colace) 100 mg EVERY 12 HOURS GT 05/10/20 21:00 06/09/20 20:59 05/15/20 21:04 Fentanyl Citrate 250 ml @ 0 mls/hr Q24H IV 05/03/20 22:03 08/01/20 22:02 05/16/20 02:30 Furosemide (Lasix) 40 mg EVERY 12 HOURS IV 05/10/20 09:00 06/09/20 08:59 05/16/20 08:27 Heparin Sodium (Porcine) (Heparin 5000 units/ml) 5,000 units EVERY 12 HOURS SUBQ 05/02/20 21:00 06/16/20 20:59 05/16/20 08:31 Levetiracetam (Keppra) 700 mg Q12HR GT 05/02/20 21:00 06/01/20 20:59 05/16/20 08:29 Lorazepam (Ativan 2mg/ml 1ml) 2 mg Q4H PRN IV For Anxiety/seizures 05/10/20 12:45 05/17/20 12:44 05/15/20 15:07 Meropenem 1 gm/ Sodium Chloride 55 ml @ 110 mls/hr Q8HR IVPB 05/02/20 15:00 05/16/20 23:59 05/16/20 05:58 Metoclopramide HCl (Reglan) 5 mg EVERY 6 HOURS GT 05/13/20 12:00 06/12/20 11:59 05/16/20 05:58 Metoprolol Tartrate (Lopressor) 25 mg Q12HR GT 05/10/20 21:00 08/08/20 08:59 05/16/20 08:25 Micafungin Sodium 100 mg/Sodium Chloride 110 ml @ 110 mls/hr Q24H IVPB 05/11/20 12:00 05/18/20 11:59 05/15/20 12:23 Midodrine (Pro-Amatine) 10 mg Q8HR GT 05/04/20 22:00 08/02/20 21:59 05/16/20 05:58 Ondansetron HCl (Zofran) 4 mg Q6H PRN IVP Nausea & Vomiting 05/02/20 12:45 06/01/20 12:44 Pantoprazole (Protonix) 40 mg DAILY IVP 05/10/20 09:00 06/09/20 08:59 05/16/20 08:28 Polyethylene Glycol (Miralax) 17 gm DAILYPRN PRN GT Constipation 05/02/20 12:45 06/01/20 12:44 Potassium Chloride (K-Dur) 40 meq TWICE A DAY GT 05/12/20 18:00 08/10/20 17:59 05/16/20 08:26 Rose Cotter M.D. May 16, 2020 10:04
--- NOTE | 2020-05-16 10:50 | Cardiac Electrophysiology PN ---
Assessment/Plan Assessment/Plan 1. Sinus tachycardia with no evidence of atrial fibrillation or SVT due to sepsis and pneumonia. Echo showed ejection fraction of 55%. 2. Transient Atrial fib. On Dig 0.125 and Lopressor 25 bid 3. Respiratory failure, currently on the ventilator and iv Abx. Has thick secretions Echocardiogram showed normal left ventricular systolic function but brain natriuretic peptide is almost 4000. Continue Lasix 40 iv bid. 4. Hypotension on Midodrine 10 tid 5. Dysphagia, status post PEG placement. 6. COPD, nosocomial pneumonia. 7. History of CVA and Seizures. JEANNA RN Subjective Subjective In ICU on the Vent on fentanyl drip and off pressors. Fio2 50% and PEEP 0 Objective Last 24 Hour Vital Signs Date Time Temp Pulse Resp B/P (MAP) Pulse Ox O2 Delivery O2 Flow Rate FiO2 05/16/20 10:38 95 22 45 05/16/20 10:00 98 21 116/65 100 Mechanical Ventilator 60 05/16/20 09:45 95 17 92/58 100 Mechanical Ventilator 60 05/16/20 09:30 102 23 131/85 99 Mechanical Ventilator 60 05/16/20 09:15 104 22 103/64 99 Mechanical Ventilator 60 05/16/20 09:00 114 27 137/86 98 Mechanical Ventilator 60 05/16/20 08:47 110 31 50 05/16/20 08:45 112 26 113/71 97 Mechanical Ventilator 60 05/16/20 08:30 120 25 139/82 97 Mechanical Ventilator 60 05/16/20 08:27 122 05/16/20 08:25 119 136/85 05/16/20 08:15 120 28 136/85 97 Mechanical Ventilator 60 05/16/20 08:00 Endotracheal Tube 05/16/20 08:00 98.9 116 24 127/74 97 Mechanical Ventilator 60 05/16/20 08:00 60 05/16/20 07:45 50 05/16/20 07:28 106 26 60 05/16/20 07:00 20 94/60 Mechanical Ventilator 60 05/16/20 06:45 99 19 100/56 100 Mechanical Ventilator 60 05/16/20 06:30 100 18 99/53 100 Mechanical Ventilator 60 05/16/20 06:30 98 22 05/16/20 06:15 100 21 97/65 100 Mechanical Ventilator 60 05/16/20 06:00 20 110/64 Mechanical Ventilator 60 05/16/20 06:00 104 19 124/61 99 Mechanical Ventilator 60 05/16/20 05:45 100 18 94/57 100 Mechanical Ventilator 60 05/16/20 05:30 98 18 106/55 100 Mechanical Ventilator 60 05/16/20 05:19 95 20 60 05/16/20 05:15 96 20 102/63 100 Mechanical Ventilator 60 05/16/20 05:00 98 21 110/65 99 Mechanical Ventilator 60 05/16/20 05:00 22 94/60 Mechanical Ventilator 60 05/16/20 04:45 93 23 95/62 99 Mechanical Ventilator 60 05/16/20 04:34 92 15 102/59 96 Mechanical Ventilator 60 05/16/20 04:30 93 18 84/57 98 Mechanical Ventilator 60 05/16/20 04:15 94 17 84/54 100 Mechanical Ventilator 60 05/16/20 04:00 60 05/16/20 04:00 Endotracheal Tube 05/16/20 04:00 84 05/16/20 04:00 98.0 96 21 89/64 100 Mechanical Ventilator 60 05/16/20 04:00 22 84/56 Mechanical Ventilator 60 05/16/20 03:30 96 21 100 Mechanical Ventilator 60 05/16/20 03:30 96 21 85/57 100 Mechanical Ventilator 60 05/16/20 03:03 95 24 60 05/16/20 03:00 98 22 108/62 99 Mechanical Ventilator 60 05/16/20 03:00 20 141/90 Mechanical Ventilator 60 05/16/20 02:30 22 112/81 Mechanical Ventilator 60 05/16/20 02:30 99 23 115/76 98 Mechanical Ventilator 60 05/16/20 02:00 20 114/67 Mechanical Ventilator 60 05/16/20 02:00 95 24 123/72 97 Mechanical Ventilator 60 05/16/20 01:45 90 21 96/64 98 05/16/20 01:30 92 24 112/72 97 Mechanical Ventilator 60 05/16/20 01:30 92 24 112/72 97 05/16/20 01:20 85 21 60 05/16/20 01:15 88 20 141/95 97 Mechanical Ventilator 60 05/16/20 01:15 88 20 141/95 97 05/16/20 01:00 88 21 95/65 99 05/16/20 01:00 21 141/95 Mechanical Ventilator 60 05/16/20 01:00 88 21 95/65 99 Mechanical Ventilator 60 05/16/20 00:45 85 21 91/53 92 05/16/20 00:45 85 21 91/53 92 Mechanical Ventilator 60 05/16/20 00:30 87 21 97/58 97 Mechanical Ventilator 60 05/16/20 00:30 87 21 97/58 97 05/16/20 00:15 89 21 98/66 97 05/16/20 00:00 87 21 98/72 98 Mechanical Ventilator 60 05/16/20 00:00 82 05/16/20 00:00 20 98/62 Mechanical Ventilator 60 05/16/20 00:00 60 05/16/20 00:00 Endotracheal Tube 05/16/20 00:00 87 21 98/72 98 05/15/20 23:30 86 20 100/58 99 Mechanical Ventilator 60 05/15/20 23:17 84 25 60 05/15/20 23:00 86 20 112/76 97 Mechanical Ventilator 60 05/15/20 23:00 21 100/60 Mechanical Ventilator 60 05/15/20 22:30 89 20 98 Mechanical Ventilator 60 05/15/20 22:00 94 19 113/69 99 Mechanical Ventilator 60 05/15/20 22:00 21 97/61 Mechanical Ventilator 60.0 60 05/15/20 21:30 101 21 129/70 94 Mechanical Ventilator 60 05/15/20 21:06 103 112/77 05/15/20 21:05 99 21 60 05/15/20 21:00 103 22 112/77 97 Mechanical Ventilator 60 05/15/20 21:00 22 116/66 Mechanical Ventilator 05/15/20 20:30 108 23 128/80 97 Mechanical Ventilator 60 05/15/20 20:00 60 05/15/20 20:00 24 119/61 Mechanical Ventilator 60.0 05/15/20 20:00 Endotracheal Tube 05/15/20 20:00 112 26 138/81 96 Mechanical Ventilator 60 05/15/20 20:00 87 05/15/20 19:34 100 23 60 05/15/20 19:30 111 25 132/82 95 Mechanical Ventilator 60 05/15/20 19:15 113 27 115/85 97 Mechanical Ventilator 60 05/15/20 19:00 109 24 115/76 96 Mechanical Ventilator 60 05/15/20 18:35 31 126/67 Mechanical Ventilator 05/15/20 18:30 108 18 123/74 98 Mechanical Ventilator 60 05/15/20 18:00 110 18 133/75 100 Mechanical Ventilator 60 05/15/20 17:30 99 18 101/66 100 Mechanical Ventilator 60 05/15/20 17:00 89 18 104/66 100 Mechanical Ventilator 60 05/15/20 17:00 100 20 60 05/15/20 16:34 104 20 94/67 100 Mechanical Ventilator 60 05/15/20 16:00 Endotracheal Tube 05/15/20 16:00 92 20 82/51 100 Mechanical Ventilator 60 05/15/20 16:00 88 05/15/20 16:00 60 05/15/20 15:30 90 20 92/60 100 Mechanical Ventilator 60 05/15/20 15:26 102 21 60 05/15/20 15:00 101 23 151/71 100 Mechanical Ventilator 60 05/15/20 14:30 102 23 147/51 100 Mechanical Ventilator 60 05/15/20 14:00 99 21 136/81 100 Mechanical Ventilator 60 05/15/20 13:30 96 20 124/67 99 Mechanical Ventilator 60 05/15/20 13:00 23 119/72 Mechanical Ventilator 05/15/20 13:00 98 18 100 Mechanical Ventilator 60 05/15/20 12:45 99 21 60 05/15/20 12:30 99 26 130/72 100 Mechanical Ventilator 60 05/15/20 12:08 Endotracheal Tube 05/15/20 12:05 96 05/15/20 12:01 60 05/15/20 12:00 98.1 100 23 133/92 98 Mechanical Ventilator 60 05/15/20 11:36 97 23 154/79 100 Mechanical Ventilator 60 05/15/20 11:00 98 22 130/88 100 Mechanical Ventilator 60 05/15/20 11:00 23 130/88 Mechanical Ventilator 05/15/20 11:00 23 154/79 Mechanical Ventilator 05/15/20 11:00 98 22 130/88 100 Intake and Output 05/15/20 05/16/20 19:00 07:00 Intake Total 1650.666 ml 1285.000 ml Output Total 1725 ml 1450 ml Balance -74.334 ml -165.000 ml IV Total 1000.666 ml 645.000 ml Tube Feeding 600 ml 540 ml Other 50 ml 100 ml Output Urine Total 1725 ml 1450 ml # Bowel Movements 4 3 Laboratory Tests Test 05/16/20 04:58 05/16/20 07:11 White Blood Count 9.3 K/UL (4.8-10.8) Red Blood Count 2.92 M/UL (4.70-6.10) L Hemoglobin 8.9 G/DL (14.2-18.0) L Hematocrit 28.5 % (42.0-52.0) L Mean Corpuscular Volume 98 FL (80-99) Mean Corpuscular Hemoglobin 30.6 PG (27.0-31.0) Mean Corpuscular Hemoglobin Concent 31.3 G/DL (32.0-36.0) L Red Cell Distribution Width 13.8 % (11.6-14.8) Platelet Count 244 K/UL (150-450) Mean Platelet Volume 8.8 FL (6.5-10.1) Neutrophils (%) (Auto) 70.2 % (45.0-75.0) Lymphocytes (%) (Auto) 15.3 % (20.0-45.0) L Monocytes (%) (Auto) 10.3 % (1.0-10.0) H Eosinophils (%) (Auto) 1.8 % (0.0-3.0) Basophils (%) (Auto) 2.5 % (0.0-2.0) H Sodium Level 146 MMOL/L (136-145) H Potassium Level 3.6 MMOL/L (3.5-5.1) Chloride Level 99 MMOL/L (98-107) Carbon Dioxide Level > 45 MMOL/L (21-32) *H Blood Urea Nitrogen 26 mg/dL (7-18) H Creatinine 0.8 MG/DL (0.55-1.30) Estimat Glomerular Filtration Rate > 60 mL/min (>60) Glucose Level 106 MG/DL (74-106) Calcium Level 8.7 MG/DL (8.5-10.1) Phosphorus Level 3.4 MG/DL (2.5-4.9) Magnesium Level 2.1 MG/DL (1.8-2.4) Total Bilirubin 0.5 MG/DL (0.2-1.0) Aspartate Amino Transf (AST/SGOT) 16 U/L (15-37) Alanine Aminotransferase (ALT/SGPT) 15 U/L (12-78) Alkaline Phosphatase 56 U/L (46-116) Total Protein 5.5 G/DL (6.4-8.2) L Albumin 1.5 G/DL (3.4-5.0) L Globulin 4.0 g/dL Albumin/Globulin Ratio 0.4 (1.0-2.7) L Arterial Blood pH 7.491 (7.350-7.450) Arterial Blood Partial Pressure CO2 64.6 mmHg (35.0-45.0) *H Arterial Blood Partial Pressure O2 101.6 mmHg (75.0-100.0) H Arterial Blood HCO3 48.2 mmol/L (22.0-26.0) *H Arterial Blood Oxygen Saturation 97.1 % (95-100) Arterial Blood Base Excess 22.1 (-2-2) *H Nicolas Test Positive Objective HEAD AND NECK: No JVD. He is orally intubated. LUNGS: Coarse rhonchi. CARDIOVASCULAR: Shows tachycardic S1 and S2 with no gallop. ABDOMEN: Status post G-tube. EXTREMITIES: 1+ pitting edema. Trace Diaz MD May 16, 2020 10:50
[2020-05-16] MEDS ORDERED: Sterile Water Irrig 1000ml IRRIG ONE ×2 (12:15→12:42)
[2020-05-16] MEDS: Micafungin 100 MG in NS 110 ML IVPB SCH (12:37)
--- NOTE | 2020-05-16 13:53 | Nephrology Progress Note ---
Assessment/Plan Problem List: (1) Electrolyte imbalance (2) Dehydration (3) Acute respiratory failure (4) Seizure disorder Assessment Severe electrolyte abnormalities Low magnesium, low phosphorus, low potassium, Other active conditions: (1) Acute respiratory failure (2) Sepsis (3) Nosocomial pneumonia (4) Seizure disorder (5) Dehydration (6) COPD (chronic obstructive pulmonary disease) (7) detention resident (8) History of CVA (cerebrovascular accident) Plan May 16: Today's labs reviewed. CO2 over 45. Stable renal parameters. Respiratory status adjustments per pulmonary. Continue rest. 1 dose of IV Diamox given May 15: No labs done today. Stable from renal standpoint of view. Will check lab tomorrow. Continue per consultants. May 14: Lab reviewed. Potassium phosphate IV given. Remains tachycardic. Continue per consultants. May 13: Lab reviewed. Potassium supplements given. Patient has diarrhea. Tolerating G-tube feeding as per ASAD Perez. Reglan and erythromycin IV discontinued. Continue to monitor renal parameters. Low-dose digoxin started. May 12: Labs reviewed. Magnesium, potassium, phosphorus supplement given. IV digoxin repeated. IV fluids stopped. May 11: Renal parameters stable. Continue digoxin for tachycardia. May 10: Tachycardia improved. Renal parameters stable. Continue per consultants. May 09: Patient remains tachycardic. 2D echocardiogram done results pending. 1 dose of IV digoxin ordered. Discussed with ASAD Dixon. Remains stable from renal standpoint of view. May 08: Magnesium sulfate IV ordered for hypomagnesemia. Patient has metabolic acidosis. IV sodium bicarb given. Feeding on hold due to residual. IV Reglan ordered. IV fluid changed to D10 normal saline. 2D echocardiogram ordered for tachycardia. Chest x-ray suggests worsening pulmonary infiltrate. Discussed with ASAD Stevens Remains stable from renal standpoint of view Discussed with ASAD mag , phosphorus and potassium supplement as needed Monitor electrolytes Continue per consultants Subjective ROS Limited/Unobtainable: Yes Objective Objective Last 24 Hour Vital Signs Date Time Temp Pulse Resp B/P (MAP) Pulse Ox O2 Delivery O2 Flow Rate FiO2 05/16/20 12:00 60 05/16/20 11:15 115 27 121/86 96 Mechanical Ventilator 60 05/16/20 11:00 111 28 150/77 98 Mechanical Ventilator 60 05/16/20 10:38 95 22 45 05/16/20 10:00 98 21 116/65 100 Mechanical Ventilator 60 8/2/20 09:45 95 17 92/58 100 Mechanical Ventilator 60 05/16/20 09:30 102 23 131/85 99 Mechanical Ventilator 60 05/16/20 09:15 104 22 103/64 99 Mechanical Ventilator 60 05/16/20 09:00 114 27 137/86 98 Mechanical Ventilator 60 05/16/20 08:47 110 31 50 05/16/20 08:45 112 26 113/71 97 Mechanical Ventilator 60 05/16/20 08:30 120 25 139/82 97 Mechanical Ventilator 60 05/16/20 08:27 122 05/16/20 08:25 119 136/85 05/16/20 08:15 120 28 136/85 97 Mechanical Ventilator 60 05/16/20 08:00 Endotracheal Tube 05/16/20 08:00 102 05/16/20 08:00 98.9 116 24 127/74 97 Mechanical Ventilator 60 05/16/20 08:00 60 05/16/20 07:45 50 05/16/20 07:28 106 26 60 05/16/20 07:00 20 94/60 Mechanical Ventilator 60 05/16/20 06:45 99 19 100/56 100 Mechanical Ventilator 60 05/16/20 06:30 100 18 99/53 100 Mechanical Ventilator 60 05/16/20 06:30 98 22 05/16/20 06:15 100 21 97/65 100 Mechanical Ventilator 60 05/16/20 06:00 20 110/64 Mechanical Ventilator 60 05/16/20 06:00 104 19 124/61 99 Mechanical Ventilator 60 05/16/20 05:45 100 18 94/57 100 Mechanical Ventilator 60 05/16/20 05:30 98 18 106/55 100 Mechanical Ventilator 60 05/16/20 05:19 95 20 60 05/16/20 05:15 96 20 102/63 100 Mechanical Ventilator 60 05/16/20 05:00 98 21 110/65 99 Mechanical Ventilator 60 05/16/20 05:00 22 94/60 Mechanical Ventilator 60 05/16/20 04:45 93 23 95/62 99 Mechanical Ventilator 60 05/16/20 04:34 92 15 102/59 96 Mechanical Ventilator 60 05/16/20 04:30 93 18 84/57 98 Mechanical Ventilator 60 05/16/20 04:15 94 17 84/54 100 Mechanical Ventilator 60 05/16/20 04:00 60 05/16/20 04:00 Endotracheal Tube 05/16/20 04:00 84 05/16/20 04:00 98.0 96 21 89/64 100 Mechanical Ventilator 60 05/16/20 04:00 22 84/56 Mechanical Ventilator 60 05/16/20 03:30 96 21 100 Mechanical Ventilator 60 05/16/20 03:30 96 21 85/57 100 Mechanical Ventilator 60 05/16/20 03:03 95 24 60 05/16/20 03:00 98 22 108/62 99 Mechanical Ventilator 60 05/16/20 03:00 20 141/90 Mechanical Ventilator 60 05/16/20 02:30 22 112/81 Mechanical Ventilator 60 05/16/20 02:30 99 23 115/76 98 Mechanical Ventilator 60 05/16/20 02:00 20 114/67 Mechanical Ventilator 60 05/16/20 02:00 95 24 123/72 97 Mechanical Ventilator 60 05/16/20 01:45 90 21 96/64 98 05/16/20 01:30 92 24 112/72 97 Mechanical Ventilator 60 05/16/20 01:30 92 24 112/72 97 05/16/20 01:20 85 21 60 05/16/20 01:15 88 20 141/95 97 Mechanical Ventilator 60 05/16/20 01:15 88 20 141/95 97 05/16/20 01:00 88 21 95/65 99 05/16/20 01:00 21 141/95 Mechanical Ventilator 60 05/16/20 01:00 88 21 95/65 99 Mechanical Ventilator 60 05/16/20 00:45 85 21 91/53 92 05/16/20 00:45 85 21 91/53 92 Mechanical Ventilator 60 05/16/20 00:30 87 21 97/58 97 Mechanical Ventilator 60 05/16/20 00:30 87 21 97/58 97 05/16/20 00:15 89 21 98/66 97 05/16/20 00:00 87 21 98/72 98 Mechanical Ventilator 60 05/16/20 00:00 82 05/16/20 00:00 20 98/62 Mechanical Ventilator 60 05/16/20 00:00 60 05/16/20 00:00 Endotracheal Tube 05/16/20 00:00 87 21 98/72 98 05/15/20 23:30 86 20 100/58 99 Mechanical Ventilator 60 05/15/20 23:17 84 25 60 8/1/20 23:00 86 20 112/76 97 Mechanical Ventilator 60 05/15/20 23:00 21 100/60 Mechanical Ventilator 60 05/15/20 22:30 89 20 98 Mechanical Ventilator 60 05/15/20 22:00 94 19 113/69 99 Mechanical Ventilator 60 05/15/20 22:00 21 97/61 Mechanical Ventilator 60.0 60 05/15/20 21:30 101 21 129/70 94 Mechanical Ventilator 60 05/15/20 21:06 103 112/77 05/15/20 21:05 99 21 60 05/15/20 21:00 103 22 112/77 97 Mechanical Ventilator 60 05/15/20 21:00 22 116/66 Mechanical Ventilator 05/15/20 20:30 108 23 128/80 97 Mechanical Ventilator 60 05/15/20 20:00 60 05/15/20 20:00 24 119/61 Mechanical Ventilator 60.0 05/15/20 20:00 Endotracheal Tube 05/15/20 20:00 112 26 138/81 96 Mechanical Ventilator 60 05/15/20 20:00 87 05/15/20 19:34 100 23 60 05/15/20 19:30 111 25 132/82 95 Mechanical Ventilator 60 05/15/20 19:15 113 27 115/85 97 Mechanical Ventilator 60 05/15/20 19:00 109 24 115/76 96 Mechanical Ventilator 60 05/15/20 18:35 31 126/67 Mechanical Ventilator 05/15/20 18:30 108 18 123/74 98 Mechanical Ventilator 60 05/15/20 18:00 110 18 133/75 100 Mechanical Ventilator 60 05/15/20 17:30 99 18 101/66 100 Mechanical Ventilator 60 05/15/20 17:00 89 18 104/66 100 Mechanical Ventilator 60 05/15/20 17:00 100 20 60 05/15/20 16:34 104 20 94/67 100 Mechanical Ventilator 60 05/15/20 16:00 Endotracheal Tube 05/15/20 16:00 92 20 82/51 100 Mechanical Ventilator 60 05/15/20 16:00 88 05/15/20 16:00 60 05/15/20 15:30 90 20 92/60 100 Mechanical Ventilator 60 05/15/20 15:26 102 21 60 05/15/20 15:00 101 23 151/71 100 Mechanical Ventilator 60 05/15/20 14:30 102 23 147/51 100 Mechanical Ventilator 60 05/15/20 14:00 99 21 136/81 100 Mechanical Ventilator 60 Intake and Output 05/15/20 05/16/20 19:00 07:00 Intake Total 1650.666 ml 1285.000 ml Output Total 1725 ml 1450 ml Balance -74.334 ml -165.000 ml IV Total 1000.666 ml 645.000 ml Tube Feeding 600 ml 540 ml Other 50 ml 100 ml Output Urine Total 1725 ml 1450 ml # Bowel Movements 4 3 Laboratory Tests 05/16/20 04:58: White Blood Count 9.3, Red Blood Count 2.92L, Hemoglobin 8.9L, Hematocrit 28.5L , Mean Corpuscular Volume 98, Mean Corpuscular Hemoglobin 30.6, Mean Corpuscular Hemoglobin Concent 31.3L, Red Cell Distribution Width 13.8, Platelet Count 244, Mean Platelet Volume 8.8, Neutrophils (%) (Auto) 70.2, Lymphocytes (%) (Auto) 15.3L, Monocytes (%) (Auto) 10.3H, Eosinophils (%) (Auto ) 1.8, Basophils (%) (Auto) 2.5H, Sodium Level 146H, Potassium Level 3.6, Chloride Level 99, Carbon Dioxide Level > 45*H, Blood Urea Nitrogen 26H, Creatinine 0.8, Estimat Glomerular Filtration Rate > 60, Glucose Level 106, Calcium Level 8.7, Phosphorus Level 3.4, Magnesium Level 2.1, Total Bilirubin 0.5, Aspartate Amino Transf (AST/SGOT) 16, Alanine Aminotransferase (ALT/SGPT) 15, Alkaline Phosphatase 56, Total Protein 5.5L, Albumin 1.5L, Globulin 4.0, Albumin/Globulin Ratio 0.4L 05/16/20 07:11: Arterial Blood pH 7.491H, Arterial Blood Partial Pressure CO2 64.6*H, Arterial Blood Partial Pressure O2 101.6H, Arterial Blood HCO3 48.2*H, Arterial Blood Oxygen Saturation 97.1, Arterial Blood Base Excess 22.1*H, Nicolas Test Positive Height (Feet): 5 Height (Inches): 8.00 Weight (Pounds): 135 General Appearance: no apparent distress EENT: other - Trach to vent Cardiovascular: tachycardia Respiratory/Chest: decreased breath sounds Abdomen: distended Objective No change Kni Bustillo MD May 16, 2020 13:53
--- NOTE | 2020-05-16 14:42 | Pulmonolgy Critical Care Note ---
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 (3) Sepsis (4) Nosocomial pneumonia (5) Seizure disorder (6) Dehydration (7) COPD (chronic obstructive pulmonary disease) (8) [facility] resident (9) History of CVA (cerebrovascular accident) (10) Muscle wasting and atrophy, not elsewhere classified, multiple sites Respiratory: monitor respiratory rate, adjust FIO2, CXR Cardiac: continue to monitor HR/BP Renal: F/U I&O, keep IV fluid, check electrolytes Infectious Disease: check cultures, continue antibiotics Gastrointestinal: continue feedings/current rate Endocrine: monitor blood sugar, continue sliding scale insulin Hematologic: transfuse if hgb<8.5 Neurologic: PRN Ativan, keep patient comfortable Affect: PRN ativan Prophylaxis: Protonix Time Spent (Minutes): 40 Notes Reviewed: fiber picker, cardio, renal Critical Care - Objective Last 24 Hour Vital Signs Date Time Temp Pulse Resp B/P (MAP) Pulse Ox O2 Delivery O2 Flow Rate FiO2 05/16/20 13:45 91 19 121/72 99 Mechanical Ventilator 60 05/16/20 13:30 89 24 109/64 100 Mechanical Ventilator 60 05/16/20 13:15 94 21 100/67 100 Mechanical Ventilator 60 05/16/20 13:00 96 21 117/63 99 Mechanical Ventilator 60 05/16/20 12:45 98 25 129/74 99 Mechanical Ventilator 60 05/16/20 12:30 110 30 127/71 95 Mechanical Ventilator 60 05/16/20 12:15 93 20 92/65 100 Mechanical Ventilator 60 05/16/20 12:00 98.6 96 23 106/60 99 Mechanical Ventilator 60 05/16/20 12:00 60 05/16/20 12:00 Endotracheal Tube 05/16/20 12:00 95 05/16/20 11:15 115 27 121/86 96 Mechanical Ventilator 60 05/16/20 11:00 111 28 150/77 98 Mechanical Ventilator 60 05/16/20 10:38 95 22 45 05/16/20 10:00 98 21 116/65 100 Mechanical Ventilator 60 05/16/20 09:45 95 17 92/58 100 Mechanical Ventilator 60 05/16/20 09:30 102 23 131/85 99 Mechanical Ventilator 60 05/16/20 09:15 104 22 103/64 99 Mechanical Ventilator 60 05/16/20 09:00 114 27 137/86 98 Mechanical Ventilator 60 05/16/20 08:47 110 31 50 05/16/20 08:45 112 26 113/71 97 Mechanical Ventilator 60 05/16/20 08:30 120 25 139/82 97 Mechanical Ventilator 60 05/16/20 08:27 122 05/16/20 08:25 119 136/85 05/16/20 08:15 120 28 136/85 97 Mechanical Ventilator 60 05/16/20 08:00 Endotracheal Tube 05/16/20 08:00 102 05/16/20 08:00 98.9 116 24 127/74 97 Mechanical Ventilator 60 05/16/20 08:00 60 05/16/20 07:45 50 05/16/20 07:28 106 26 60 05/16/20 07:00 20 94/60 Mechanical Ventilator 60 05/16/20 06:45 99 19 100/56 100 Mechanical Ventilator 60 05/16/20 06:30 100 18 99/53 100 Mechanical Ventilator 60 05/16/20 06:30 98 22 05/16/20 06:15 100 21 97/65 100 Mechanical Ventilator 60 05/16/20 06:00 20 110/64 Mechanical Ventilator 60 05/16/20 06:00 104 19 124/61 99 Mechanical Ventilator 60 05/16/20 05:45 100 18 94/57 100 Mechanical Ventilator 60 05/16/20 05:30 98 18 106/55 100 Mechanical Ventilator 60 05/16/20 05:19 95 20 60 05/16/20 05:15 96 20 102/63 100 Mechanical Ventilator 60 05/16/20 05:00 98 21 110/65 99 Mechanical Ventilator 60 05/16/20 05:00 22 94/60 Mechanical Ventilator 60 05/16/20 04:45 93 23 95/62 99 Mechanical Ventilator 60 05/16/20 04:34 92 15 102/59 96 Mechanical Ventilator 60 05/16/20 04:30 93 18 84/57 98 Mechanical Ventilator 60 05/16/20 04:15 94 17 84/54 100 Mechanical Ventilator 60 05/16/20 04:00 60 05/16/20 04:00 Endotracheal Tube 05/16/20 04:00 84 05/16/20 04:00 98.0 96 21 89/64 100 Mechanical Ventilator 60 05/16/20 04:00 22 84/56 Mechanical Ventilator 60 05/16/20 03:30 96 21 100 Mechanical Ventilator 60 05/16/20 03:30 96 21 85/57 100 Mechanical Ventilator 60 05/16/20 03:03 95 24 60 05/16/20 03:00 98 22 108/62 99 Mechanical Ventilator 60 05/16/20 03:00 20 141/90 Mechanical Ventilator 60 05/16/20 02:30 22 112/81 Mechanical Ventilator 60 05/16/20 02:30 99 23 115/76 98 Mechanical Ventilator 60 05/16/20 02:00 20 114/67 Mechanical Ventilator 60 05/16/20 02:00 95 24 123/72 97 Mechanical Ventilator 60 05/16/20 01:45 90 21 96/64 98 05/16/20 01:30 92 24 112/72 97 Mechanical Ventilator 60 05/16/20 01:30 92 24 112/72 97 05/16/20 01:20 85 21 60 05/16/20 01:15 88 20 141/95 97 Mechanical Ventilator 60 05/16/20 01:15 88 20 141/95 97 05/16/20 01:00 88 21 95/65 99 05/16/20 01:00 21 141/95 Mechanical Ventilator 60 05/16/20 01:00 88 21 95/65 99 Mechanical Ventilator 60 05/16/20 00:45 85 21 91/53 92 05/16/20 00:45 85 21 91/53 92 Mechanical Ventilator 60 05/16/20 00:30 87 21 97/58 97 Mechanical Ventilator 60 05/16/20 00:30 87 21 97/58 97 05/16/20 00:15 89 21 98/66 97 05/16/20 00:00 87 21 98/72 98 Mechanical Ventilator 60 05/16/20 00:00 82 05/16/20 00:00 20 98/62 Mechanical Ventilator 60 05/16/20 00:00 60 05/16/20 00:00 Endotracheal Tube 05/16/20 00:00 87 21 98/72 98 05/15/20 23:30 86 20 100/58 99 Mechanical Ventilator 60 05/15/20 23:17 84 25 60 05/15/20 23:00 86 20 112/76 97 Mechanical Ventilator 60 05/15/20 23:00 21 100/60 Mechanical Ventilator 60 05/15/20 22:30 89 20 98 Mechanical Ventilator 60 05/15/20 22:00 94 19 113/69 99 Mechanical Ventilator 60 05/15/20 22:00 21 97/61 Mechanical Ventilator 60.0 60 05/15/20 21:30 101 21 129/70 94 Mechanical Ventilator 60 05/15/20 21:06 103 112/77 05/15/20 21:05 99 21 60 05/15/20 21:00 103 22 112/77 97 Mechanical Ventilator 60 05/15/20 21:00 22 116/66 Mechanical Ventilator 05/15/20 20:30 108 23 128/80 97 Mechanical Ventilator 60 05/15/20 20:00 60 05/15/20 20:00 24 119/61 Mechanical Ventilator 60.0 05/15/20 20:00 Endotracheal Tube 05/15/20 20:00 112 26 138/81 96 Mechanical Ventilator 60 05/15/20 20:00 87 05/15/20 19:34 100 23 60 05/15/20 19:30 111 25 132/82 95 Mechanical Ventilator 60 05/15/20 19:15 113 27 115/85 97 Mechanical Ventilator 60 05/15/20 19:00 109 24 115/76 96 Mechanical Ventilator 60 05/15/20 18:35 31 126/67 Mechanical Ventilator 05/15/20 18:30 108 18 123/74 98 Mechanical Ventilator 60 05/15/20 18:00 110 18 133/75 100 Mechanical Ventilator 60 05/15/20 17:30 99 18 101/66 100 Mechanical Ventilator 60 05/15/20 17:00 89 18 104/66 100 Mechanical Ventilator 60 05/15/20 17:00 100 20 60 05/15/20 16:34 104 20 94/67 100 Mechanical Ventilator 60 05/15/20 16:00 Endotracheal Tube 05/15/20 16:00 92 20 82/51 100 Mechanical Ventilator 60 05/15/20 16:00 88 05/15/20 16:00 60 05/15/20 15:30 90 20 92/60 100 Mechanical Ventilator 60 05/15/20 15:26 102 21 60 05/15/20 15:00 101 23 151/71 100 Mechanical Ventilator 60 Status: sedated Condition: critical HEENT: atraumatic, normocephalic Neck: full ROM Lungs: clear Heart: HR/BP stable Abdomen: soft, non-tender Extremities: no C/C/E, edema Decubiti: location Critical Care - Subjective ROS Limited/Unobtainable: Yes Condition: critical EKG Rhythm: Sinus Rhythm FI02: 60 Vent Support Breath Rate: 20 Vent Support Mode: AC Vent Tidal Volume: 600 Sputum Amount: Scant PEEP: 0.0 PIP: 21 Tube Feeding Amount: 60 I&O: Intake and Output 05/15/20 05/16/20 19:00 07:00 Intake Total 1650.666 ml 1285.000 ml Output Total 1725 ml 1450 ml Balance -74.334 ml -165.000 ml IV Total 1000.666 ml 645.000 ml Tube Feeding 600 ml 540 ml Other 50 ml 100 ml Output Urine Total 1725 ml 1450 ml # Bowel Movements 4 3 CXR: extensive infiltrate ET-Tube: 7.5 ET Position: 24 Labs: Laboratory Tests Test 05/16/20 04:58 05/16/20 07:11 White Blood Count 9.3 K/UL (4.8-10.8) Red Blood Count 2.92 M/UL (4.70-6.10) L Hemoglobin 8.9 G/DL (14.2-18.0) L Hematocrit 28.5 % (42.0-52.0) L Mean Corpuscular Volume 98 FL (80-99) Mean Corpuscular Hemoglobin 30.6 PG (27.0-31.0) Mean Corpuscular Hemoglobin Concent 31.3 G/DL (32.0-36.0) L Red Cell Distribution Width 13.8 % (11.6-14.8) Platelet Count 244 K/UL (150-450) Mean Platelet Volume 8.8 FL (6.5-10.1) Neutrophils (%) (Auto) 70.2 % (45.0-75.0) Lymphocytes (%) (Auto) 15.3 % (20.0-45.0) L Monocytes (%) (Auto) 10.3 % (1.0-10.0) H Eosinophils (%) (Auto) 1.8 % (0.0-3.0) Basophils (%) (Auto) 2.5 % (0.0-2.0) H Sodium Level 146 MMOL/L (136-145) H Potassium Level 3.6 MMOL/L (3.5-5.1) Chloride Level 99 MMOL/L (98-107) Carbon Dioxide Level > 45 MMOL/L (21-32) *H Blood Urea Nitrogen 26 mg/dL (7-18) H Creatinine 0.8 MG/DL (0.55-1.30) Estimat Glomerular Filtration Rate > 60 mL/min (>60) Glucose Level 106 MG/DL (74-106) Calcium Level 8.7 MG/DL (8.5-10.1) Phosphorus Level 3.4 MG/DL (2.5-4.9) Magnesium Level 2.1 MG/DL (1.8-2.4) Total Bilirubin 0.5 MG/DL (0.2-1.0) Aspartate Amino Transf (AST/SGOT) 16 U/L (15-37) Alanine Aminotransferase (ALT/SGPT) 15 U/L (12-78) Alkaline Phosphatase 56 U/L (46-116) Total Protein 5.5 G/DL (6.4-8.2) L Albumin 1.5 G/DL (3.4-5.0) L Globulin 4.0 g/dL Albumin/Globulin Ratio 0.4 (1.0-2.7) L Arterial Blood pH 7.491 (7.350-7.450) Arterial Blood Partial Pressure CO2 64.6 mmHg (35.0-45.0) *H Arterial Blood Partial Pressure O2 101.6 mmHg (75.0-100.0) H Arterial Blood HCO3 48.2 mmol/L (22.0-26.0) *H Arterial Blood Oxygen Saturation 97.1 % (95-100) Arterial Blood Base Excess 22.1 (-2-2) *H Nicolas Test Positive Ana Maria Hansen MD May 16, 2020 14:42
[2020-05-16] MEDS ORDERED: acetaZOLAMIDE 500mg Inj IVP SCH (15:00)
--- NOTE | 2020-05-16 17:21 | Internal Med Progress Note ---
Subjective Date of Service: May 16, 2020 Physician Name Obey Cisneros Attending Physician Marky Go MD Current Medications Medications (Trade) Dose Ordered Sig/Damion Route PRN Reason Start Time Stop Time Status Last Admin Dose Admin Acetaminophen (Tylenol) 650 mg Q4H PRN GT fever 05/02/20 12:45 06/01/20 12:44 05/15/20 08:39 Acetazolamide (Diamox 500mg Inj) 250 mg ONCE IVP 05/16/20 15:00 06/15/20 15:30 05/16/20 14:37 Amikacin Protocol (Amikacin pharmacy to dose) 1 ea DAILY PRN MISC Per rx protocol 05/12/20 16:15 06/11/20 16:14 Amikacin Sulfate 1000 mg/Sodium Chloride 114 ml @ 114 mls/hr Q36H IV 05/14/20 06:00 05/21/20 05:59 05/15/20 17:45 Aspirin (ASA) 81 mg DAILY GT 05/05/20 09:00 06/19/20 08:59 05/16/20 08:26 Chlorhexidine Gluconate (Marci-Hex 2%) 1 applic DAILY@2000 TOPIC 05/03/20 20:00 08/01/20 19:59 05/15/20 21:03 Digoxin (Lanoxin) 0.125 mg DAILY GT 05/14/20 09:00 08/12/20 08:59 05/16/20 08:27 Docusate Sodium (Colace) 100 mg EVERY 12 HOURS GT 05/10/20 21:00 06/09/20 20:59 05/15/20 21:04 Fentanyl Citrate 250 ml @ 0 mls/hr Q24H IV 05/03/20 22:03 08/01/20 22:02 05/16/20 02:30 Furosemide (Lasix) 40 mg EVERY 12 HOURS IV 05/10/20 09:00 06/09/20 08:59 05/16/20 08:27 Heparin Sodium (Porcine) (Heparin 5000 units/ml) 5,000 units EVERY 12 HOURS SUBQ 05/02/20 21:00 06/16/20 20:59 05/16/20 08:31 Levetiracetam (Keppra) 700 mg Q12HR GT 05/02/20 21:00 06/01/20 20:59 05/16/20 08:29 Lorazepam (Ativan 2mg/ml 1ml) 2 mg Q4H PRN IV For Anxiety/seizures 05/10/20 12:45 05/17/20 12:44 05/15/20 15:07 Meropenem 1 gm/ Sodium Chloride 55 ml @ 110 mls/hr Q8HR IVPB 05/02/20 15:00 05/16/20 23:59 05/16/20 14:37 Metoclopramide HCl (Reglan) 5 mg EVERY 6 HOURS GT 05/13/20 12:00 06/12/20 11:59 05/16/20 05:58 Metoprolol Tartrate (Lopressor) 25 mg Q12HR GT 05/10/20 21:00 08/08/20 08:59 05/16/20 08:25 Micafungin Sodium 100 mg/Sodium Chloride 110 ml @ 110 mls/hr Q24H IVPB 05/11/20 12:00 05/18/20 11:59 05/16/20 12:37 Midodrine (Pro-Amatine) 10 mg Q8HR GT 05/04/20 22:00 08/02/20 21:59 05/16/20 14:37 Ondansetron HCl (Zofran) 4 mg Q6H PRN IVP Nausea & Vomiting 05/02/20 12:45 06/01/20 12:44 Pantoprazole (Protonix) 40 mg DAILY IVP 05/10/20 09:00 06/09/20 08:59 05/16/20 08:28 Polyethylene Glycol (Miralax) 17 gm DAILYPRN PRN GT Constipation 05/02/20 12:45 06/01/20 12:44 Potassium Chloride (K-Dur) 40 meq TWICE A DAY GT 05/12/20 18:00 08/10/20 17:59 05/16/20 08:26 Allergies: Coded Allergies: DIPHENHYDRAMINE (Verified Allergy, Unknown, 02/27/20) ROS Limited/Unobtainable: Yes Subjective 59 YO M admitted with respiratory failure. Now pneumonia. Intubated and sedated. Cover for Int Faraz-Dr Go. ICU. On pressors Objective Last Vital Signs Date Time Temp Pulse Resp B/P (MAP) Pulse Ox O2 Delivery O2 Flow Rate FiO2 05/16/20 16:53 102 27 45 05/16/20 16:15 143/81 99 Mechanical Ventilator 05/16/20 16:00 98.9 05/15/20 22:00 60.0 Laboratory Tests Test 05/16/20 04:58 05/16/20 07:11 White Blood Count 9.3 K/UL (4.8-10.8) Red Blood Count 2.92 M/UL (4.70-6.10) L Hemoglobin 8.9 G/DL (14.2-18.0) L Hematocrit 28.5 % (42.0-52.0) L Mean Corpuscular Volume 98 FL (80-99) Mean Corpuscular Hemoglobin 30.6 PG (27.0-31.0) Mean Corpuscular Hemoglobin Concent 31.3 G/DL (32.0-36.0) L Red Cell Distribution Width 13.8 % (11.6-14.8) Platelet Count 244 K/UL (150-450) Mean Platelet Volume 8.8 FL (6.5-10.1) Neutrophils (%) (Auto) 70.2 % (45.0-75.0) Lymphocytes (%) (Auto) 15.3 % (20.0-45.0) L Monocytes (%) (Auto) 10.3 % (1.0-10.0) H Eosinophils (%) (Auto) 1.8 % (0.0-3.0) Basophils (%) (Auto) 2.5 % (0.0-2.0) H Sodium Level 146 MMOL/L (136-145) H Potassium Level 3.6 MMOL/L (3.5-5.1) Chloride Level 99 MMOL/L (98-107) Carbon Dioxide Level > 45 MMOL/L (21-32) *H Blood Urea Nitrogen 26 mg/dL (7-18) H Creatinine 0.8 MG/DL (0.55-1.30) Estimat Glomerular Filtration Rate > 60 mL/min (>60) Glucose Level 106 MG/DL (74-106) Calcium Level 8.7 MG/DL (8.5-10.1) Phosphorus Level 3.4 MG/DL (2.5-4.9) Magnesium Level 2.1 MG/DL (1.8-2.4) Total Bilirubin 0.5 MG/DL (0.2-1.0) Aspartate Amino Transf (AST/SGOT) 16 U/L (15-37) Alanine Aminotransferase (ALT/SGPT) 15 U/L (12-78) Alkaline Phosphatase 56 U/L (46-116) Total Protein 5.5 G/DL (6.4-8.2) L Albumin 1.5 G/DL (3.4-5.0) L Globulin 4.0 g/dL Albumin/Globulin Ratio 0.4 (1.0-2.7) L Arterial Blood pH 7.491 (7.350-7.450) Arterial Blood Partial Pressure CO2 64.6 mmHg (35.0-45.0) *H Arterial Blood Partial Pressure O2 101.6 mmHg (75.0-100.0) H Arterial Blood HCO3 48.2 mmol/L (22.0-26.0) *H Arterial Blood Oxygen Saturation 97.1 % (95-100) Arterial Blood Base Excess 22.1 (-2-2) *H Nicolas Test Positive Intake and Output 05/15/20 05/16/20 19:00 07:00 Intake Total 1650.666 ml 1285.000 ml Output Total 1725 ml 1450 ml Balance -74.334 ml -165.000 ml IV Total 1000.666 ml 645.000 ml Tube Feeding 600 ml 540 ml Other 50 ml 100 ml Output Urine Total 1725 ml 1450 ml # Bowel Movements 4 3 Objective PHYSICAL EXAMINATION: GENERAL: The patient is a thin-appearing male, in severe respiratory distress. HEENT: Eyes, pupils equal and responsive to light and accommodation. Extraocular movements are intact. NECK: Supple. No lymphadenopathy. CHEST: Mech Vent; Decreased breath sounds bilaterally without rales. CARDIOVASCULAR: Tachycardic, regular rhythm. S1 and S2 are normal without murmurs, rubs, or gallops. ABDOMEN: Soft, nontender, and nondistended. Positive bowel sounds. No evidence of hepatosplenomegaly. Currently, no rebound or guarding noted. EXTREMITIES: Negative for clubbing, cyanosis, or edema. RECTAL/GENITAL: Not performed. NEUROLOGICAL: Unable to assess Assessment/Plan Assessment/Plan ASSESSMENT: This is a 59-year-old male. 1. Shortness of breath. 2. Hypoxia. 3. Right lower lobe pneumonia=enterobacter, pseudamonas, and staph aureus 4. Acute respiratory failure. 5. History of cerebrovascular accident. 6. Seizure disorder. 7. Functional quadriplegia. 8. Schizophrenia. 9. Dysphagia. 10. Urinary tract infection=proteus mirabilis 11. Sinus Tachycardia 12.Inceased tube feed residuals TREATMENT: 1. Respiratory failure/pneumonia. Intubated; A pulmonary consultation has been obtained with Dr. Ana Maria Hansen. Antibiotics= vancomycin and mycofungin. ID=Dr Stokes 2. Seizure disorder. Continue Keppra, Depakote as above. 3. Functional quadriplegia. 4. Schizophrenia. Continue Risperdal as above. 5. Dysphagia. The patient is status post PEG. 6. Cardiology=Dr Diaz 7. GI=Obey Stahl MD May 16, 2020 17:21
[2020-05-16] MEDS: Acetaminophen 650mg/20.3ml GT PRN (18:42)
[2020-05-16] MEDS: Dyna-Hex 2% Top Sol 2oz TOPIC SCH (20:12)
[2020-05-17] VITALS (47 sets, daily range): BP systolic 84–169; BP diastolic 52–118
[2020-05-17] MEDS: fentaNYL 2500mcg/NS 250ml 250 ML IV SCH ×2 (02:21→20:59)
[2020-05-17] MEDS: Metoclopramide 10mg/10ml Liq GT SCH ×4 (05:17→17:39)
[2020-05-17] MEDS: Midodrine 10mg tab GT SCH ×3 (05:17→22:00)
[2020-05-17] MEDS: Amikacin 1,000 MG in NS 110 ML IV SCH (05:17)
[2020-05-17 05:57] LABS: BASOPHILS % (AUTO) 0.9 % (0.0-2.0); EOSINOPHILS % (AUTO) 1.8 % (0.0-3.0); HEMATOCRIT 32.8 % (42.0-52.0); HEMOGLOBIN 10.5 G/DL (14.2-18.0); MEAN CORPUSCULAR VOLUME 97 FL (80-99); MONOCYTES % (AUTO) 10.5 % (1.0-10.0); NEUTROPHILS % (AUTO) 71.9 % (45.0-75.0); PLATELET COUNT 265 K/UL (150-450); WHITE BLOOD COUNT 12.9 K/UL (4.8-10.8)
[2020-05-17 06:37] LABS: ALANINE AMINOTRANSFERASE 26 U/L (12-78); ALBUMIN 1.9 G/DL (3.4-5.0); ALBUMIN/GLOBULIN RATIO 0.4 (1.0-2.7); ALKALINE PHOSPHATASE 60 U/L (46-116); ANION GAP 2 mmol/L (5-15); ASPARTATE AMINO TRANSFERASE 23 U/L (15-37); BILIRUBIN,TOTAL 0.6 MG/DL (0.2-1.0); BLOOD UREA NITROGEN 30 mg/dL (7-18); CALCIUM 8.9 MG/DL (8.5-10.1); CARBON DIOXIDE 39 MMOL/L (21-32); CHLORIDE 103 MMOL/L (98-107); PHOSPHORUS 3.3 MG/DL (2.5-4.9); POTASSIUM 3.3 MMOL/L (3.5-5.1); SODIUM 144 MMOL/L (136-145)
[2020-05-17] MEDS: Docusate 100mg/10ml Liq GT SCH ×2 (08:06→21:00)
[2020-05-17] MEDS: levETIRAcetam 500mg/5ml Liquid GT SCH ×2 (08:06→21:00)
[2020-05-17] MEDS: Aspirin Baby 81mg GT SCH (08:07)
[2020-05-17] MEDS: Digoxin 0.125mg tab GT SCH (08:07)
[2020-05-17] MEDS: Heparin 5000 units/ml inj SUBQ SCH ×2 (08:08→21:00)
[2020-05-17] MEDS: Pantoprazole Inj IVP SCH (08:08)
--- NOTE | 2020-05-17 08:08 | General Progress Note ---
Assessment/Plan Assessment/Plan: 1. CVA. 2. Seizure disorder. 3. Functional quadriplegia. 4. Schizophrenia. 5. Dysphagia with G-tube. 6. iron def anemia 7. Constipation KUB..>>>.reviewed iv iron fu labs GTF iv erythromycin icu care Subjective ROS Limited/Unobtainable: No Allergies: Coded Allergies: DIPHENHYDRAMINE (Verified Allergy, Unknown, 02/27/20) Objective Last 24 Hour Vital Signs Date Time Temp Pulse Resp B/P (MAP) Pulse Ox O2 Delivery O2 Flow Rate FiO2 05/17/20 07:10 125 31 45 05/17/20 07:00 115 30 144/118 99 Mechanical Ventilator 45 05/17/20 07:00 30 144/118 Mechanical Ventilator 45 05/17/20 06:30 110 30 149/82 100 Mechanical Ventilator 45 05/17/20 06:30 110 30 05/17/20 06:00 109 27 139/79 96 Mechanical Ventilator 45 05/17/20 06:00 27 139/79 Mechanical Ventilator 45 05/17/20 05:30 101 23 112/66 94 Mechanical Ventilator 45 05/17/20 05:30 94 33 45 05/17/20 05:00 102 24 131/92 99 Mechanical Ventilator 45 05/17/20 05:00 24 131/92 Mechanical Ventilator 45 05/17/20 04:30 118 29 121/99 97 Mechanical Ventilator 45 05/17/20 04:00 Endotracheal Tube 05/17/20 04:00 111 05/17/20 04:00 27 135/90 Mechanical Ventilator 45 05/17/20 04:00 99.1 111 27 139/90 98 Mechanical Ventilator 45 05/17/20 04:00 45 05/17/20 03:30 101 25 104/88 99 Mechanical Ventilator 45 05/17/20 03:00 102 24 120/70 100 Mechanical Ventilator 45 05/17/20 03:00 23 120/70 Mechanical Ventilator 45 05/17/20 02:56 101 26 45 05/17/20 02:30 98 26 140/110 99 Mechanical Ventilator 45 05/17/20 02:21 24 133/74 Mechanical Ventilator 45 05/17/20 02:00 23 154/95 Mechanical Ventilator 45 05/17/20 02:00 111 30 154/95 98 Mechanical Ventilator 45 05/17/20 01:30 108 26 142/82 99 Mechanical Ventilator 45 8/3/20 01:25 102 27 45 8/3/20 01:00 24 128/88 Mechanical Ventilator 45 8/320 01:00 109 28 128/88 98 Mechanical Ventilator 45 8/320 00:30 106 25 136/83 100 Mechanical Ventilator 45 8/320 00:00 107 8/320 00:00 Endotracheal Tube 320 00:00 99.4 112 25 125/70 98 Mechanical Ventilator 45 8320 00:00 25 125/70 Mechanical Ventilator 45 20 00:00 Endotracheal Tube 220 23:30 103 25 117/85 99 Mechanical Ventilator 45 8/2/20 23:10 95 24 45 8/2/20 23:00 27 148/75 Mechanical Ventilator 45 820 23:00 104 28 148/75 100 Mechanical Ventilator 45 82/20 22:30 109 26 138/81 100 Mechanical Ventilator 45 82/20 22:00 24 136/103 Mechanical Ventilator 45 82/20 22:00 113 28 136/103 100 Mechanical Ventilator 45 220 21:39 114 27 45 8/2/20 21:30 110 25 142/78 99 Mechanical Ventilator 45 8/2/20 21:00 113 29 122/95 100 Mechanical Ventilator 45 2/20 21:00 32 122/95 Mechanical Ventilator 45 20 20:30 108 27 135/105 100 Mechanical Ventilator 45 8/2/20 20:15 94 116/67 8/2/20 20:00 45 8/2/20 20:00 Endotracheal Tube 20 20:00 96 8/2/20 20:00 98.7 92 20 116/67 100 Mechanical Ventilator 45 8/2/20 20:00 21 116/67 Mechanical Ventilator 45 8/2/20 19:44 99 23 45 8/2/20 19:30 99 24 102/62 100 Mechanical Ventilator 60 8/2/20 19:12 98.8 8/2/20 19:00 102 26 108/81 100 Mechanical Ventilator 60 8/2/20 19:00 26 129/95 Mechanical Ventilator 60 8/2/20 18:15 115 25 175/91 98 Mechanical Ventilator 60 8/2/20 18:00 111 26 160/89 98 Mechanical Ventilator 60 8/2/20 17:15 117 25 164/138 99 Mechanical Ventilator 60 05/16/20 17:00 120 27 142/87 93 Mechanical Ventilator 60 05/16/20 16:53 102 27 45 05/16/20 16:15 94 19 143/81 99 Mechanical Ventilator 60 05/16/20 16:00 98 05/16/20 16:00 98.9 95 19 125/53 99 Mechanical Ventilator 60 05/16/20 16:00 60 05/16/20 16:00 Endotracheal Tube 05/16/20 15:30 103 25 108/78 99 Mechanical Ventilator 60 05/16/20 15:15 99 25 126/81 100 Mechanical Ventilator 60 05/16/20 15:00 105 22 45 05/16/20 15:00 94 25 112/84 100 Mechanical Ventilator 60 05/16/20 15:00 60 05/16/20 13:45 91 19 121/72 99 Mechanical Ventilator 60 05/16/20 13:30 89 24 109/64 100 Mechanical Ventilator 60 05/16/20 13:15 94 21 100/67 100 Mechanical Ventilator 60 05/16/20 13:02 103 26 45 05/16/20 13:00 21 100/67 Mechanical Ventilator 05/16/20 13:00 96 21 117/63 99 Mechanical Ventilator 60 05/16/20 12:45 98 25 129/74 99 Mechanical Ventilator 60 05/16/20 12:30 110 30 127/71 95 Mechanical Ventilator 60 05/16/20 12:15 93 20 92/65 100 Mechanical Ventilator 60 05/16/20 12:00 98.6 96 23 106/60 99 Mechanical Ventilator 60 05/16/20 12:00 60 05/16/20 12:00 21 92/65 Mechanical Ventilator 05/16/20 12:00 Endotracheal Tube 05/16/20 12:00 95 05/16/20 11:15 115 27 121/86 96 Mechanical Ventilator 60 05/16/20 11:00 17 121/85 Mechanical Ventilator 05/16/20 11:00 111 28 150/77 98 Mechanical Ventilator 60 05/16/20 10:38 95 22 45 05/16/20 10:00 98 21 116/65 100 Mechanical Ventilator 60 05/16/20 10:00 21 89/58 Mechanical Ventilator 05/16/20 09:45 95 17 92/58 100 Mechanical Ventilator 60 05/16/20 09:30 102 23 131/85 99 Mechanical Ventilator 60 05/16/20 09:15 104 22 103/64 99 Mechanical Ventilator 60 05/16/20 09:00 23 137/86 Mechanical Ventilator 05/16/20 09:00 114 27 137/86 98 Mechanical Ventilator 60 05/16/20 08:47 110 31 50 05/16/20 08:45 112 26 113/71 97 Mechanical Ventilator 60 05/16/20 08:30 120 25 139/82 97 Mechanical Ventilator 60 05/16/20 08:27 122 05/16/20 08:25 119 136/85 05/16/20 08:15 120 28 136/85 97 Mechanical Ventilator 60 Intake and Output 05/16/20 05/17/20 19:00 07:00 Intake Total 940 ml 1127.25 ml Output Total 1090 ml 2230 ml Balance -150 ml -1102.75 ml IV Total 280 ml 227.25 ml Tube Feeding 660 ml 780 ml Other 120 ml Output Urine Total 1090 ml 2230 ml # Bowel Movements 5 Laboratory Tests 05/17/20 04:42: White Blood Count 12.9H, Red Blood Count 3.40L, Hemoglobin 10.5L, Hematocrit 32.8L, Mean Corpuscular Volume 97, Mean Corpuscular Hemoglobin 30.9, Mean Corpuscular Hemoglobin Concent 32.0, Red Cell Distribution Width 14.0, Platelet Count 265, Mean Platelet Volume 9.7, Neutrophils (%) (Auto) 71.9, Lymphocytes (% ) (Auto) 15.0L, Monocytes (%) (Auto) 10.5H, Eosinophils (%) (Auto) 1.8, Basophils (%) (Auto) 0.9, Sodium Level 144, Potassium Level 3.3L, Chloride Level 103, Carbon Dioxide Level 39H, Anion Gap 2L, Blood Urea Nitrogen 30H, Creatinine 1.0, Estimat Glomerular Filtration Rate > 60, Glucose Level 114H, Calcium Level 8.9, Phosphorus Level 3.3, Magnesium Level 2.1, Total Bilirubin 0.6, Aspartate Amino Transf (AST/SGOT) 23, Alanine Aminotransferase (ALT/SGPT) 26, Alkaline Phosphatase 60, Total Protein 6.3L, Albumin 1.9L, Globulin 4.4, Albumin/Globulin Ratio 0.4L 05/17/20 07:08: Arterial Blood pH 7.430, Arterial Blood Partial Pressure CO2 57.5*H, Arterial Blood Partial Pressure O2 77.9, Arterial Blood HCO3 37.3H, Arterial Blood Oxygen Saturation 93.9L, Arterial Blood Base Excess 11.3*H, Nicolas Test Positive Height (Feet): 5 Height (Inches): 8.00 Weight (Pounds): 142 General Appearance: lethargic EENT: normal ENT inspection Neck: supple Cardiovascular: normal rate Respiratory/Chest: decreased breath sounds Abdomen: hypoactive bowel sounds Extremities: non-tender Clarke Liu MD May 17, 2020 08:08
--- NOTE | 2020-05-17 09:36 | Cardiac Electrophysiology PN ---
Assessment/Plan Assessment/Plan 1. Sinus tachycardia with no atrial fibrillation or SVT due to sepsis and pneumonia. Echo showed ejection fraction of 55%. 2. Transient Atrial fib. On Dig 0.125 and Lopressor 25 bid 3. Respiratory failure, currently on the ventilator and iv Abx. Has thick secretions Echocardiogram showed normal left ventricular systolic function but brain natriuretic peptide is almost 4000. Continue Lasix 40 iv bid. 4. Hypotension on Midodrine 10 tid 5. Dysphagia, status post PEG placement. 6. COPD, nosocomial pneumonia. 7. History of CVA and Seizures. JEANNA RN Subjective Subjective In ICU on the Vent on fentanyl drip and off pressors. Fio2 40% and PEEP 0 Objective Last 24 Hour Vital Signs Date Time Temp Pulse Resp B/P (MAP) Pulse Ox O2 Delivery O2 Flow Rate FiO2 05/17/20 08:39 95 27 40 05/17/20 08:30 101 26 123/82 100 Mechanical Ventilator 45 05/17/20 08:07 115 05/17/20 08:07 112 135/89 05/17/20 08:06 29 143/84 Endotracheal Tube 45 05/17/20 08:00 45 05/17/20 08:00 Endotracheal Tube 05/17/20 08:00 98.6 112 28 143/84 99 Mechanical Ventilator 45 05/17/20 07:45 117 05/17/20 07:10 125 31 45 05/17/20 07:00 115 30 144/118 99 Mechanical Ventilator 45 05/17/20 07:00 30 144/118 Mechanical Ventilator 45 05/17/20 06:30 110 30 149/82 100 Mechanical Ventilator 45 05/17/20 06:30 110 30 05/17/20 06:00 109 27 139/79 96 Mechanical Ventilator 45 05/17/20 06:00 27 139/79 Mechanical Ventilator 45 05/17/20 05:30 101 23 112/66 94 Mechanical Ventilator 45 05/17/20 05:30 94 33 45 05/17/20 05:00 102 24 131/92 99 Mechanical Ventilator 45 05/17/20 05:00 24 131/92 Mechanical Ventilator 45 05/17/20 04:30 118 29 121/99 97 Mechanical Ventilator 45 05/17/20 04:00 Endotracheal Tube 05/17/20 04:00 111 05/17/20 04:00 27 135/90 Mechanical Ventilator 45 8/3/20 04:00 99.1 111 27 139/90 98 Mechanical Ventilator 45 8/3/20 04:00 45 8/3/20 03:30 101 25 104/88 99 Mechanical Ventilator 45 8/3/20 03:00 102 24 120/70 100 Mechanical Ventilator 45 8/3/20 03:00 23 120/70 Mechanical Ventilator 45 8/3/20 02:56 101 26 45 8/3/20 02:30 98 26 140/110 99 Mechanical Ventilator 45 8/3/20 02:21 24 133/74 Mechanical Ventilator 45 8/20 02:00 23 154/95 Mechanical Ventilator 45 8/20 02:00 111 30 154/95 98 Mechanical Ventilator 45 8/320 01:30 108 26 142/82 99 Mechanical Ventilator 45 8 01:25 102 27 45 [id number] 01:00 24 128/88 Mechanical Ventilator 45 [id number] 01:00 109 28 128/88 98 Mechanical Ventilator 45 05/17/20 00:30 106 25 136/83 100 Mechanical Ventilator 45 05/17/20 00:00 107 05/17/20 00:00 Endotracheal Tube 05/17/20 00:00 99.4 112 25 125/70 98 Mechanical Ventilator 45 320 00:00 25 125/70 Mechanical Ventilator 45 05/17/20 00:00 Endotracheal Tube 2 23:30 103 25 117/85 99 Mechanical Ventilator 45 8220 23:10 95 24 45 8/2/20 23:00 27 148/75 Mechanical Ventilator 45 8/2/20 23:00 104 28 148/75 100 Mechanical Ventilator 45 8/2/20 22:30 109 26 138/81 100 Mechanical Ventilator 45 8/2/20 22:00 24 136/103 Mechanical Ventilator 45 8/2/20 22:00 113 28 136/103 100 Mechanical Ventilator 45 8/2/20 21:39 114 27 45 8/2/20 21:30 110 25 142/78 99 Mechanical Ventilator 45 8/2/20 21:00 113 29 122/95 100 Mechanical Ventilator 45 8/2/20 21:00 32 122/95 Mechanical Ventilator 45 8/2/20 20:30 108 27 135/105 100 Mechanical Ventilator 45 8/2/20 20:15 94 116/67 8/2/20 20:00 45 8/2/20 20:00 Endotracheal Tube 8/2/20 20:00 96 05/16/20 20:00 98.7 92 20 116/67 100 Mechanical Ventilator 45 05/16/20 20:00 21 116/67 Mechanical Ventilator 45 05/16/20 19:44 99 23 45 05/16/20 19:30 99 24 102/62 100 Mechanical Ventilator 60 05/16/20 19:12 98.8 05/16/20 19:00 102 26 108/81 100 Mechanical Ventilator 60 05/16/20 19:00 26 129/95 Mechanical Ventilator 60 05/16/20 18:15 115 25 175/91 98 Mechanical Ventilator 60 05/16/20 18:00 111 26 160/89 98 Mechanical Ventilator 60 05/16/20 17:15 117 25 164/138 99 Mechanical Ventilator 60 05/16/20 17:00 120 27 142/87 93 Mechanical Ventilator 60 05/16/20 16:53 102 27 45 05/16/20 16:15 94 19 143/81 99 Mechanical Ventilator 60 05/16/20 16:00 98 05/16/20 16:00 98.9 95 19 125/53 99 Mechanical Ventilator 60 05/16/20 16:00 60 05/16/20 16:00 Endotracheal Tube 05/16/20 15:30 103 25 108/78 99 Mechanical Ventilator 60 05/16/20 15:15 99 25 126/81 100 Mechanical Ventilator 60 05/16/20 15:00 105 22 45 05/16/20 15:00 94 25 112/84 100 Mechanical Ventilator 60 05/16/20 15:00 60 05/16/20 13:45 91 19 121/72 99 Mechanical Ventilator 60 05/16/20 13:30 89 24 109/64 100 Mechanical Ventilator 60 05/16/20 13:15 94 21 100/67 100 Mechanical Ventilator 60 05/16/20 13:02 103 26 45 05/16/20 13:00 21 100/67 Mechanical Ventilator 05/16/20 13:00 96 21 117/63 99 Mechanical Ventilator 60 05/16/20 12:45 98 25 129/74 99 Mechanical Ventilator 60 05/16/20 12:30 110 30 127/71 95 Mechanical Ventilator 60 05/16/20 12:15 93 20 92/65 100 Mechanical Ventilator 60 05/16/20 12:00 98.6 96 23 106/60 99 Mechanical Ventilator 60 05/16/20 12:00 60 05/16/20 12:00 21 92/65 Mechanical Ventilator 05/16/20 12:00 Endotracheal Tube 05/16/20 12:00 95 05/16/20 11:15 115 27 121/86 96 Mechanical Ventilator 60 05/16/20 11:00 17 121/85 Mechanical Ventilator 05/16/20 11:00 111 28 150/77 98 Mechanical Ventilator 60 05/16/20 10:38 95 22 45 05/16/20 10:00 98 21 116/65 100 Mechanical Ventilator 60 05/16/20 10:00 21 89/58 Mechanical Ventilator 05/16/20 09:45 95 17 92/58 100 Mechanical Ventilator 60 Intake and Output 05/16/20 05/17/20 19:00 07:00 Intake Total 940 ml 1127.25 ml Output Total 1090 ml 2230 ml Balance -150 ml -1102.75 ml IV Total 280 ml 227.25 ml Tube Feeding 660 ml 780 ml Other 120 ml Output Urine Total 1090 ml 2230 ml # Bowel Movements 5 Laboratory Tests Test 05/17/20 04:42 05/17/20 07:08 White Blood Count 12.9 K/UL (4.8-10.8) H Red Blood Count 3.40 M/UL (4.70-6.10) L Hemoglobin 10.5 G/DL (14.2-18.0) L Hematocrit 32.8 % (42.0-52.0) L Mean Corpuscular Volume 97 FL (80-99) Mean Corpuscular Hemoglobin 30.9 PG (27.0-31.0) Mean Corpuscular Hemoglobin Concent 32.0 G/DL (32.0-36.0) Red Cell Distribution Width 14.0 % (11.6-14.8) Platelet Count 265 K/UL (150-450) Mean Platelet Volume 9.7 FL (6.5-10.1) Neutrophils (%) (Auto) 71.9 % (45.0-75.0) Lymphocytes (%) (Auto) 15.0 % (20.0-45.0) L Monocytes (%) (Auto) 10.5 % (1.0-10.0) H Eosinophils (%) (Auto) 1.8 % (0.0-3.0) Basophils (%) (Auto) 0.9 % (0.0-2.0) Sodium Level 144 MMOL/L (136-145) Potassium Level 3.3 MMOL/L (3.5-5.1) L Chloride Level 103 MMOL/L (98-107) Carbon Dioxide Level 39 MMOL/L (21-32) H Anion Gap 2 mmol/L (5-15) L Blood Urea Nitrogen 30 mg/dL (7-18) H Creatinine 1.0 MG/DL (0.55-1.30) Estimat Glomerular Filtration Rate > 60 mL/min (>60) Glucose Level 114 MG/DL (74-106) H Calcium Level 8.9 MG/DL (8.5-10.1) Phosphorus Level 3.3 MG/DL (2.5-4.9) Magnesium Level 2.1 MG/DL (1.8-2.4) Total Bilirubin 0.6 MG/DL (0.2-1.0) Aspartate Amino Transf (AST/SGOT) 23 U/L (15-37) Alanine Aminotransferase (ALT/SGPT) 26 U/L (12-78) Alkaline Phosphatase 60 U/L (46-116) Total Protein 6.3 G/DL (6.4-8.2) L Albumin 1.9 G/DL (3.4-5.0) L Globulin 4.4 g/dL Albumin/Globulin Ratio 0.4 (1.0-2.7) L Arterial Blood pH 7.430 (7.350-7.450) Arterial Blood Partial Pressure CO2 57.5 mmHg (35.0-45.0) *H Arterial Blood Partial Pressure O2 77.9 mmHg (75.0-100.0) Arterial Blood HCO3 37.3 mmol/L (22.0-26.0) H Arterial Blood Oxygen Saturation 93.9 % (95-100) L Arterial Blood Base Excess 11.3 (-2-2) *H Nicolas Test Positive Objective HEAD AND NECK: No JVD. He is orally intubated. LUNGS: Coarse rhonchi. CARDIOVASCULAR: Shows tachycardic S1 and S2 with no gallop. ABDOMEN: Status post G-tube. EXTREMITIES: 1+ pitting edema. Trace Diaz MD May 17, 2020 09:36
--- NOTE | 2020-05-17 10:56 | Pulmonolgy Critical Care Note ---
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 (3) Sepsis (4) Nosocomial pneumonia (5) Seizure disorder (6) Dehydration (7) COPD (chronic obstructive pulmonary disease) (8) snf resident (9) History of CVA (cerebrovascular accident) (10) Muscle wasting and atrophy, not elsewhere classified, multiple sites Respiratory: monitor respiratory rate, adjust FIO2, CXR Cardiac: continue to monitor HR/BP Renal: F/U I&O, keep IV fluid Infectious Disease: check cultures Gastrointestinal: continue feedings/current rate Endocrine: monitor blood sugar, check HgA1C Neurologic: PRN Ativan, other - on fentanyl Disposition: keep in ICU Time Spent (Minutes): 40 Notes 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, 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, 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, consultants, 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 - Objective Last 24 Hour Vital Signs Date Time Temp Pulse Resp B/P (MAP) Pulse Ox O2 Delivery O2 Flow Rate FiO2 05/17/20 10:36 86 20 40 05/17/20 10:00 91 22 94/61 100 Mechanical Ventilator 40 05/17/20 10:00 22 94/61 Endotracheal Tube 40 05/17/20 09:30 86 25 93/54 99 Mechanical Ventilator 40 05/17/20 09:00 91 24 90/59 99 Mechanical Ventilator 40 05/17/20 09:00 21 90/59 Endotracheal Tube 40 05/17/20 08:39 95 27 40 05/17/20 08:30 101 26 123/82 100 Mechanical Ventilator 45 05/17/20 08:07 115 05/17/20 08:07 112 135/89 05/17/20 08:06 29 143/84 Endotracheal Tube 45 05/17/20 08:00 45 05/17/20 08:00 Endotracheal Tube 05/17/20 08:00 98.6 112 28 143/84 99 Mechanical Ventilator 45 05/17/20 07:45 117 05/17/20 07:10 125 31 45 05/17/20 07:00 115 30 144/118 99 Mechanical Ventilator 45 05/17/20 07:00 30 144/118 Mechanical Ventilator 45 05/17/20 06:30 110 30 149/82 100 Mechanical Ventilator 45 05/17/20 06:30 110 30 05/17/20 06:00 109 27 139/79 96 Mechanical Ventilator 45 05/17/20 06:00 27 139/79 Mechanical Ventilator 45 05/17/20 05:30 101 23 112/66 94 Mechanical Ventilator 45 05/17/20 05:30 94 33 45 05/17/20 05:00 102 24 131/92 99 Mechanical Ventilator 45 05/17/20 05:00 24 131/92 Mechanical Ventilator 45 05/17/20 04:30 118 29 121/99 97 Mechanical Ventilator 45 05/17/20 04:00 Endotracheal Tube 05/17/20 04:00 111 05/17/20 04:00 27 135/90 Mechanical Ventilator 45 05/17/20 04:00 99.1 111 27 139/90 98 Mechanical Ventilator 45 05/17/20 04:00 45 05/17/20 03:30 101 25 104/88 99 Mechanical Ventilator 45 05/17/20 03:00 102 24 120/70 100 Mechanical Ventilator 45 05/17/20 03:00 23 120/70 Mechanical Ventilator 45 05/17/20 02:56 101 26 45 05/17/20 02:30 98 26 140/110 99 Mechanical Ventilator 45 05/17/20 02:21 24 133/74 Mechanical Ventilator 45 05/17/20 02:00 23 154/95 Mechanical Ventilator 45 05/17/20 02:00 111 30 154/95 98 Mechanical Ventilator 45 05/17/20 01:30 108 26 142/82 99 Mechanical Ventilator 45 05/17/20 01:25 102 27 45 05/17/20 01:00 24 128/88 Mechanical Ventilator 45 05/17/20 01:00 109 28 128/88 98 Mechanical Ventilator 45 05/17/20 00:30 106 25 136/83 100 Mechanical Ventilator 45 05/17/20 00:00 107 05/17/20 00:00 Endotracheal Tube 05/17/20 00:00 99.4 112 25 125/70 98 Mechanical Ventilator 45 05/17/20 00:00 25 125/70 Mechanical Ventilator 45 05/17/20 00:00 Endotracheal Tube 05/16/20 23:30 103 25 117/85 99 Mechanical Ventilator 45 05/16/20 23:10 95 24 45 05/16/20 23:00 27 148/75 Mechanical Ventilator 45 05/16/20 23:00 104 28 148/75 100 Mechanical Ventilator 45 05/16/20 22:30 109 26 138/81 100 Mechanical Ventilator 45 8/2/20 22:00 24 136/103 Mechanical Ventilator 45 8/2/20 22:00 113 28 136/103 100 Mechanical Ventilator 45 8/2/20 21:39 114 27 45 8/2/20 21:30 110 25 142/78 99 Mechanical Ventilator 45 8/2/20 21:00 113 29 122/95 100 Mechanical Ventilator 45 8/2/20 21:00 32 122/95 Mechanical Ventilator 45 8/220 20:30 108 27 135/105 100 Mechanical Ventilator 45 8/2/20 20:15 94 116/67 8/2/20 20:00 45 [id number] 20:00 Endotracheal Tube 20 20:00 96 8/220 20:00 98.7 92 20 116/67 100 Mechanical Ventilator 45 20 20:00 21 116/67 Mechanical Ventilator 45 20 19:44 99 23 45 20 19:30 99 24 102/62 100 Mechanical Ventilator 60 8/20 19:12 98.8 05/16/20 19:00 102 26 108/81 100 Mechanical Ventilator 60 20 19:00 26 129/95 Mechanical Ventilator 60 820 18:15 115 25 175/91 98 Mechanical Ventilator 60 220 18:00 111 26 160/89 98 Mechanical Ventilator 60 05/16/20 17:15 117 25 164/138 99 Mechanical Ventilator 60 220 17:00 120 27 142/87 93 Mechanical Ventilator 60 20 16:53 102 27 45 20 16:15 94 19 143/81 99 Mechanical Ventilator 60 82/20 16:00 98 8/2/20 16:00 98.9 95 19 125/53 99 Mechanical Ventilator 60 8/2/20 16:00 60 8/220 16:00 Endotracheal Tube 20 15:30 103 25 108/78 99 Mechanical Ventilator 60 8/2/20 15:15 99 25 126/81 100 Mechanical Ventilator 60 8/2/20 15:00 105 22 45 8/2/20 15:00 94 25 112/84 100 Mechanical Ventilator 60 8/2/20 15:00 60 8/2/20 13:45 91 19 121/72 99 Mechanical Ventilator 60 8/2/20 13:30 89 24 109/64 100 Mechanical Ventilator 60 8/2/20 13:15 94 21 100/67 100 Mechanical Ventilator 60 05/16/20 13:02 103 26 45 05/16/20 13:00 21 100/67 Mechanical Ventilator 05/16/20 13:00 96 21 117/63 99 Mechanical Ventilator 60 05/16/20 12:45 98 25 129/74 99 Mechanical Ventilator 60 05/16/20 12:30 110 30 127/71 95 Mechanical Ventilator 60 05/16/20 12:15 93 20 92/65 100 Mechanical Ventilator 60 05/16/20 12:00 98.6 96 23 106/60 99 Mechanical Ventilator 60 05/16/20 12:00 60 05/16/20 12:00 21 92/65 Mechanical Ventilator 05/16/20 12:00 Endotracheal Tube 05/16/20 12:00 95 05/16/20 11:15 115 27 121/86 96 Mechanical Ventilator 60 05/16/20 11:00 17 121/85 Mechanical Ventilator 05/16/20 11:00 111 28 150/77 98 Mechanical Ventilator 60 Status: sedated, somnolent Condition: critical HEENT: atraumatic Neck: full ROM Lungs: chest wall tender Heart: HR/BP stable Abdomen: soft Extremities: no C/C/E Critical Care - Subjective ROS Limited/Unobtainable: Yes Condition: critical EKG Rhythm: Sinus Rhythm FI02: 40 Vent Support Breath Rate: 20 Vent Support Mode: AC Vent Tidal Volume: 700 Sputum Amount: Small PEEP: 0.0 PIP: 38 Tube Feeding Amount: 60 I&O: Intake and Output 05/16/20 05/17/20 19:00 07:00 Intake Total 940 ml 1127.25 ml Output Total 1090 ml 2230 ml Balance -150 ml -1102.75 ml IV Total 280 ml 227.25 ml Tube Feeding 660 ml 780 ml Other 120 ml Output Urine Total 1090 ml 2230 ml # Bowel Movements 5 CXR: ET in good position, extensive infiltrate ET-Tube: 7.5 ET Position: 24 Labs: Laboratory Tests Test 05/17/20 04:42 05/17/20 07:08 White Blood Count 12.9 K/UL (4.8-10.8) H Red Blood Count 3.40 M/UL (4.70-6.10) L Hemoglobin 10.5 G/DL (14.2-18.0) L Hematocrit 32.8 % (42.0-52.0) L Mean Corpuscular Volume 97 FL (80-99) Mean Corpuscular Hemoglobin 30.9 PG (27.0-31.0) Mean Corpuscular Hemoglobin Concent 32.0 G/DL (32.0-36.0) Red Cell Distribution Width 14.0 % (11.6-14.8) Platelet Count 265 K/UL (150-450) Mean Platelet Volume 9.7 FL (6.5-10.1) Neutrophils (%) (Auto) 71.9 % (45.0-75.0) Lymphocytes (%) (Auto) 15.0 % (20.0-45.0) L Monocytes (%) (Auto) 10.5 % (1.0-10.0) H Eosinophils (%) (Auto) 1.8 % (0.0-3.0) Basophils (%) (Auto) 0.9 % (0.0-2.0) Sodium Level 144 MMOL/L (136-145) Potassium Level 3.3 MMOL/L (3.5-5.1) L Chloride Level 103 MMOL/L (98-107) Carbon Dioxide Level 39 MMOL/L (21-32) H Anion Gap 2 mmol/L (5-15) L Blood Urea Nitrogen 30 mg/dL (7-18) H Creatinine 1.0 MG/DL (0.55-1.30) Estimat Glomerular Filtration Rate > 60 mL/min (>60) Glucose Level 114 MG/DL (74-106) H Calcium Level 8.9 MG/DL (8.5-10.1) Phosphorus Level 3.3 MG/DL (2.5-4.9) Magnesium Level 2.1 MG/DL (1.8-2.4) Total Bilirubin 0.6 MG/DL (0.2-1.0) Aspartate Amino Transf (AST/SGOT) 23 U/L (15-37) Alanine Aminotransferase (ALT/SGPT) 26 U/L (12-78) Alkaline Phosphatase 60 U/L (46-116) Total Protein 6.3 G/DL (6.4-8.2) L Albumin 1.9 G/DL (3.4-5.0) L Globulin 4.4 g/dL Albumin/Globulin Ratio 0.4 (1.0-2.7) L Arterial Blood pH 7.430 (7.350-7.450) Arterial Blood Partial Pressure CO2 57.5 mmHg (35.0-45.0) *H Arterial Blood Partial Pressure O2 77.9 mmHg (75.0-100.0) Arterial Blood HCO3 37.3 mmol/L (22.0-26.0) H Arterial Blood Oxygen Saturation 93.9 % (95-100) L Arterial Blood Base Excess 11.3 (-2-2) *H Nicolas Test Positive Ana Maria Hansen MD May 17, 2020 10:56
--- NOTE | 2020-05-17 11:04 | Infectious Diseases Prog Note ---
Assessment/Plan Assessment: Septic Shock- off pressors now Pneumonia- COVID 19 neg x3(2 on same day) Acute hypoxic resp failure- s/p intubation 05/02 -05/16 CXR: Interval worsening of ARDS/bilateral multifocal pneumonia. -05/12 CXR: Again demonstrated are extensive right greater than left bilateral infiltrates, probably unchanged allowing for differences in degree of rotation and exposure technique. -05/10 sp cx MDR PsA (I Ceftazidime, Gentamycin, Colistin/Polymixin B), MDR alcaligenes sp (suspect likely contaminant; I Colistin/Polymixin B) -05/08 CXRL Increasing airspace opacities, worse in the right midlung. Increase in small right pleural effusion and probably small left pleural effusion. -05/07 Rapid COVID PCR neg -05/05 Bcx NTD -05/04 CXR: Dense consolidation of the right mid and lower lung, right pleural effusion are unchanged. Left lung and pleural space remain clear. -05/02 Sp cx PsA (pham S), E. aerogenes (R Ancef; otherwise S), MRSA -05/02 CXR: There is a moderately consolidating infiltrate in the right lower lobe consistent with pneumonia. Bcx neg x4 rapid COVID neg, COVI PCR neg - previously neg: -02/26 SARS-COV2 pCR neg; 02/28 SARS-COV 2 pcr neg Probable UTI -u/a wbc 10-15, nit neg, leul +2 ; ucx <10k ESBL. P. mirabilis (S Zosyn, meropenem) Fever (up to 105.3); improving (on cooling blanket) leukocytosis; increased, now improvnig -05/10 u/a neg Bcx NGD TOMAS; SP Recent Sepsis 2ry to ESBL K.pna bacteremia and Pneumonia 02/2020 -Bcx / ESBL K.pna (S Levo, Meropenem, ZOsyn); 03/01 Bcx Neg -sp cx ESBL K.pna -02/27 sp removal PICC Line; cath tip cx Neg muscle weakness and atrophy (not characterized) psychiatric disorder dysphagia s/p GT [place] resident ( [facility]) Dementia seizure disorder Plan: -Cont empiric Micafungin #/ -Cont Empiric Amikacin #6 for MDRO- seems to have improved on it --awaiting amikacin sensitivities from micro lab (spoke w / micro lab 05/17) -05/16 SP Meropenem #15 -05/15 SP IV Vancomycn # SP Amikacin # -05/02 SP CEfepime x1 , Azithromycin x1 Trend WBC, improving on current regimen Trend resp status -f/u cx -Monitor CBC/CMP, temperatures -COVID19 neg x3 (2 on the same day); ok to dc COVID isolation -ICU/ETT/PEG care -f/u repeat cultures -Cdiff if diarrhea Thank you for consulting [facility]. Will continue to follow along with you. Discussed with RN. Subjective Allergies: Coded Allergies: DIPHENHYDRAMINE (Verified Allergy, Unknown, 02/27/20) afebrile in ~48hrs wbc iioverall improved Fio2 down to 40% Bcx NTD Objective Last 24 Hour Vital Signs Date Time Temp Pulse Resp B/P (MAP) Pulse Ox O2 Delivery O2 Flow Rate FiO2 05/17/20 10:36 86 20 40 05/17/20 10:00 91 22 94/61 100 Mechanical Ventilator 40 05/17/20 10:00 22 94/61 Endotracheal Tube 40 05/17/20 09:30 86 25 93/54 99 Mechanical Ventilator 40 05/17/20 09:00 91 24 90/59 99 Mechanical Ventilator 40 05/17/20 09:00 21 90/59 Endotracheal Tube 40 05/17/20 08:39 95 27 40 05/17/20 08:30 101 26 123/82 100 Mechanical Ventilator 45 05/17/20 08:07 115 05/17/20 08:07 112 135/89 05/17/20 08:06 29 143/84 Endotracheal Tube 45 05/17/20 08:00 45 05/17/20 08:00 Endotracheal Tube 05/17/20 08:00 98.6 112 28 143/84 99 Mechanical Ventilator 45 05/17/20 07:45 117 05/17/20 07:10 125 31 45 05/17/20 07:00 115 30 144/118 99 Mechanical Ventilator 45 05/17/20 07:00 30 144/118 Mechanical Ventilator 45 05/17/20 06:30 110 30 149/82 100 Mechanical Ventilator 45 05/17/20 06:30 110 30 05/17/20 06:00 109 27 139/79 96 Mechanical Ventilator 45 05/17/20 06:00 27 139/79 Mechanical Ventilator 45 05/17/20 05:30 101 23 112/66 94 Mechanical Ventilator 45 05/17/20 05:30 94 33 45 05/17/20 05:00 102 24 131/92 99 Mechanical Ventilator 45 05/17/20 05:00 24 131/92 Mechanical Ventilator 45 05/17/20 04:30 118 29 121/99 97 Mechanical Ventilator 45 05/17/20 04:00 Endotracheal Tube 05/17/20 04:00 111 05/17/20 04:00 27 135/90 Mechanical Ventilator 45 05/17/20 04:00 99.1 111 27 139/90 98 Mechanical Ventilator 45 05/17/20 04:00 45 05/17/20 03:30 101 25 104/88 99 Mechanical Ventilator 45 05/17/20 03:00 102 24 120/70 100 Mechanical Ventilator 45 05/17/20 03:00 23 120/70 Mechanical Ventilator 45 05/17/20 02:56 101 26 45 05/17/20 02:30 98 26 140/110 99 Mechanical Ventilator 45 05/17/20 02:21 24 133/74 Mechanical Ventilator 45 05/17/20 02:00 23 154/95 Mechanical Ventilator 45 05/17/20 02:00 111 30 154/95 98 Mechanical Ventilator 45 05/17/20 01:30 108 26 142/82 99 Mechanical Ventilator 45 05/17/20 01:25 102 27 45 05/17/20 01:00 24 128/88 Mechanical Ventilator 45 05/17/20 01:00 109 28 128/88 98 Mechanical Ventilator 45 05/17/20 00:30 106 25 136/83 100 Mechanical Ventilator 45 05/17/20 00:00 107 05/17/20 00:00 Endotracheal Tube 05/17/20 00:00 99.4 112 25 125/70 98 Mechanical Ventilator 45 05/17/20 00:00 25 125/70 Mechanical Ventilator 45 05/17/20 00:00 Endotracheal Tube 05/16/20 23:30 103 25 117/85 99 Mechanical Ventilator 45 05/16/20 23:10 95 24 45 05/16/20 23:00 27 148/75 Mechanical Ventilator 45 05/16/20 23:00 104 28 148/75 100 Mechanical Ventilator 45 8/2/20 22:30 109 26 138/81 100 Mechanical Ventilator 45 8/2/20 22:00 24 136/103 Mechanical Ventilator 45 8/2/20 22:00 113 28 136/103 100 Mechanical Ventilator 45 8/2/20 21:39 114 27 45 8/2/20 21:30 110 25 142/78 99 Mechanical Ventilator 45 8/2/20 21:00 113 29 122/95 100 Mechanical Ventilator 45 8/2/20 21:00 32 122/95 Mechanical Ventilator 45 8/2/20 20:30 108 27 135/105 100 Mechanical Ventilator 45 8/2/20 20:15 94 116/67 8/2/20 20:00 45 8/2/20 20:00 Endotracheal Tube 8/2/20 20:00 96 8/2/20 20:00 98.7 92 20 116/67 100 Mechanical Ventilator 45 8/2/20 20:00 21 116/67 Mechanical Ventilator 45 8/2/20 19:44 99 23 45 8/2/20 19:30 99 24 102/62 100 Mechanical Ventilator 60 8/2/20 19:12 98.8 8/2/20 19:00 102 26 108/81 100 Mechanical Ventilator 60 8/2/20 19:00 26 129/95 Mechanical Ventilator 60 8/2/20 18:15 115 25 175/91 98 Mechanical Ventilator 60 8/2/20 18:00 111 26 160/89 98 Mechanical Ventilator 60 8/2/20 17:15 117 25 164/138 99 Mechanical Ventilator 60 8/2/20 17:00 120 27 142/87 93 Mechanical Ventilator 60 8/2/20 16:53 102 27 45 8/2/20 16:15 94 19 143/81 99 Mechanical Ventilator 60 8/2/20 16:00 98 8/2/20 16:00 98.9 95 19 125/53 99 Mechanical Ventilator 60 8/2/20 16:00 60 8/2/20 16:00 Endotracheal Tube 8/2/20 15:30 103 25 108/78 99 Mechanical Ventilator 60 8/2/20 15:15 99 25 126/81 100 Mechanical Ventilator 60 8/2/20 15:00 105 22 45 8/2/20 15:00 94 25 112/84 100 Mechanical Ventilator 60 8/2/20 15:00 60 8/2/20 13:45 91 19 121/72 99 Mechanical Ventilator 60 8/2/20 13:30 89 24 109/64 100 Mechanical Ventilator 60 05/16/20 13:15 94 21 100/67 100 Mechanical Ventilator 60 05/16/20 13:02 103 26 45 05/16/20 13:00 21 100/67 Mechanical Ventilator 05/16/20 13:00 96 21 117/63 99 Mechanical Ventilator 60 05/16/20 12:45 98 25 129/74 99 Mechanical Ventilator 60 05/16/20 12:30 110 30 127/71 95 Mechanical Ventilator 60 05/16/20 12:15 93 20 92/65 100 Mechanical Ventilator 60 05/16/20 12:00 98.6 96 23 106/60 99 Mechanical Ventilator 60 05/16/20 12:00 60 05/16/20 12:00 21 92/65 Mechanical Ventilator 05/16/20 12:00 Endotracheal Tube 05/16/20 12:00 95 05/16/20 11:15 115 27 121/86 96 Mechanical Ventilator 60 05/16/20 11:00 17 121/85 Mechanical Ventilator 05/16/20 11:00 111 28 150/77 98 Mechanical Ventilator 60 Height (Feet): 5 Height (Inches): 8.00 Weight (Pounds): 142 NECK: Supple. No lymphadenopathy. CHEST: Mech Vent; Decreased breath sounds bilaterally without rales. CARDIOVASCULAR: Tachycardic, regular rhythm. S1 and S2 are normal without murmurs, rubs, or gallops. ABDOMEN: Soft, nontender, and nondistended. Positive bowel sounds. No evidence of hepatosplenomegaly. Currently, no rebound or guarding noted. EXTREMITIES: Negative for clubbing, cyanosis, or edema. Laboratory Tests Test 05/17/20 04:42 05/17/20 07:08 White Blood Count 12.9 K/UL (4.8-10.8) H Red Blood Count 3.40 M/UL (4.70-6.10) L Hemoglobin 10.5 G/DL (14.2-18.0) L Hematocrit 32.8 % (42.0-52.0) L Mean Corpuscular Volume 97 FL (80-99) Mean Corpuscular Hemoglobin 30.9 PG (27.0-31.0) Mean Corpuscular Hemoglobin Concent 32.0 G/DL (32.0-36.0) Red Cell Distribution Width 14.0 % (11.6-14.8) Platelet Count 265 K/UL (150-450) Mean Platelet Volume 9.7 FL (6.5-10.1) Neutrophils (%) (Auto) 71.9 % (45.0-75.0) Lymphocytes (%) (Auto) 15.0 % (20.0-45.0) L Monocytes (%) (Auto) 10.5 % (1.0-10.0) H Eosinophils (%) (Auto) 1.8 % (0.0-3.0) Basophils (%) (Auto) 0.9 % (0.0-2.0) Sodium Level 144 MMOL/L (136-145) Potassium Level 3.3 MMOL/L (3.5-5.1) L Chloride Level 103 MMOL/L (98-107) Carbon Dioxide Level 39 MMOL/L (21-32) H Anion Gap 2 mmol/L (5-15) L Blood Urea Nitrogen 30 mg/dL (7-18) H Creatinine 1.0 MG/DL (0.55-1.30) Estimat Glomerular Filtration Rate > 60 mL/min (>60) Glucose Level 114 MG/DL (74-106) H Calcium Level 8.9 MG/DL (8.5-10.1) Phosphorus Level 3.3 MG/DL (2.5-4.9) Magnesium Level 2.1 MG/DL (1.8-2.4) Total Bilirubin 0.6 MG/DL (0.2-1.0) Aspartate Amino Transf (AST/SGOT) 23 U/L (15-37) Alanine Aminotransferase (ALT/SGPT) 26 U/L (12-78) Alkaline Phosphatase 60 U/L (46-116) Total Protein 6.3 G/DL (6.4-8.2) L Albumin 1.9 G/DL (3.4-5.0) L Globulin 4.4 g/dL Albumin/Globulin Ratio 0.4 (1.0-2.7) L Arterial Blood pH 7.430 (7.350-7.450) Arterial Blood Partial Pressure CO2 57.5 mmHg (35.0-45.0) *H Arterial Blood Partial Pressure O2 77.9 mmHg (75.0-100.0) Arterial Blood HCO3 37.3 mmol/L (22.0-26.0) H Arterial Blood Oxygen Saturation 93.9 % (95-100) L Arterial Blood Base Excess 11.3 (-2-2) *H Nicolas Test Positive Current Medications Medications (Trade) Dose Ordered Sig/Damion Route PRN Reason Start Time Stop Time Status Last Admin Dose Admin Acetaminophen (Tylenol) 650 mg Q4H PRN GT fever 05/02/20 12:45 06/01/20 12:44 05/16/20 18:42 Amikacin Protocol (Amikacin pharmacy to dose) 1 ea DAILY PRN MISC Per rx protocol 05/12/20 16:15 06/11/20 16:14 Amikacin Sulfate 1000 mg/Sodium Chloride 114 ml @ 114 mls/hr Q36H IV 05/14/20 06:00 05/21/20 05:59 05/17/20 05:17 Aspirin (ASA) 81 mg DAILY GT 05/05/20 09:00 06/19/20 08:59 05/17/20 08:07 Chlorhexidine Gluconate (Marci-Hex 2%) 1 applic DAILY@2000 TOPIC 05/03/20 20:00 08/01/20 19:59 05/16/20 20:12 Digoxin (Lanoxin) 0.125 mg DAILY GT 05/14/20 09:00 08/12/20 08:59 05/17/20 08:07 Docusate Sodium (Colace) 100 mg EVERY 12 HOURS GT 05/10/20 21:00 06/09/20 20:59 05/17/20 08:06 Fentanyl Citrate 250 ml @ 0 mls/hr Q24H IV 05/03/20 22:03 08/01/20 22:02 05/17/20 02:21 Furosemide (Lasix) 40 mg EVERY 12 HOURS IV 05/10/20 09:00 06/09/20 08:59 05/16/20 20:13 Heparin Sodium (Porcine) (Heparin 5000 units/ml) 5,000 units EVERY 12 HOURS SUBQ 05/02/20 21:00 06/16/20 20:59 05/17/20 08:08 Levetiracetam (Keppra) 700 mg Q12HR GT 05/02/20 21:00 06/01/20 20:59 05/17/20 08:06 Lorazepam (Ativan 2mg/ml 1ml) 2 mg Q4H PRN IV For Anxiety/seizures 05/10/20 12:45 05/17/20 12:44 05/15/20 15:07 Metoclopramide HCl (Reglan) 5 mg EVERY 6 HOURS GT 05/13/20 12:00 06/12/20 11:59 05/17/20 05:17 Metoprolol Tartrate (Lopressor) 25 mg Q12HR GT 05/10/20 21:00 08/08/20 08:59 05/17/20 08:07 Micafungin Sodium 100 mg/Sodium Chloride 110 ml @ 110 mls/hr Q24H IVPB 05/11/20 12:00 05/18/20 11:59 05/16/20 12:37 Midodrine (Pro-Amatine) 10 mg Q8HR GT 05/04/20 22:00 08/02/20 21:59 05/17/20 05:17 Ondansetron HCl (Zofran) 4 mg Q6H PRN IVP Nausea & Vomiting 05/02/20 12:45 06/01/20 12:44 Pantoprazole (Protonix) 40 mg DAILY IVP 05/10/20 09:00 06/09/20 08:59 05/17/20 08:08 Polyethylene Glycol (Miralax) 17 gm DAILYPRN PRN GT Constipation 05/02/20 12:45 06/01/20 12:44 Potassium Chloride (K-Dur) 40 meq TWICE A DAY GT 05/12/20 18:00 08/10/20 17:59 05/17/20 08:06 Charlene Stokes M.D. May 17, 2020 11:04
[2020-05-17] MEDS: Micafungin 100 MG in NS 110 ML IVPB SCH (11:35)
--- NOTE | 2020-05-17 11:59 | Nephrology Progress Note ---
Assessment/Plan Problem List: (1) Electrolyte imbalance (2) Dehydration (3) Acute respiratory failure (4) Seizure disorder Assessment Severe electrolyte abnormalities Low magnesium, low phosphorus, low potassium, Other active conditions: (1) Acute respiratory failure (2) Sepsis (3) Nosocomial pneumonia (4) Seizure disorder (5) Dehydration (6) COPD (chronic obstructive pulmonary disease) (7) group home resident (8) History of CVA (cerebrovascular accident) Plan May 17: Lab reviewed. Potassium supplement given. Continue per consultants. May 16: Today's labs reviewed. CO2 over 45. Stable renal parameters. Respiratory status adjustments per pulmonary. Continue rest. 1 dose of IV Diamox given May 15: No labs done today. Stable from renal standpoint of view. Will check lab tomorrow. Continue per consultants. May 14: Lab reviewed. Potassium phosphate IV given. Remains tachycardic. Continue per consultants. May 13: Lab reviewed. Potassium supplements given. Patient has diarrhea. Tolerating G-tube feeding as per ASAD Perez. Reglan and erythromycin IV discontinued. Continue to monitor renal parameters. Low-dose digoxin started. May 12: Labs reviewed. Magnesium, potassium, phosphorus supplement given. IV digoxin repeated. IV fluids stopped. May 11: Renal parameters stable. Continue digoxin for tachycardia. May 10: Tachycardia improved. Renal parameters stable. Continue per consultants. May 09: Patient remains tachycardic. 2D echocardiogram done results pending. 1 dose of IV digoxin ordered. Discussed with ASAD Dixon. Remains stable from renal standpoint of view. May 08: Magnesium sulfate IV ordered for hypomagnesemia. Patient has metabolic acidosis. IV sodium bicarb given. Feeding on hold due to residual. IV Reglan ordered. IV fluid changed to D10 normal saline. 2D echocardiogram ordered for tachycardia. Chest x-ray suggests worsening pulmonary infiltrate. Discussed with ASAD Stevens Remains stable from renal standpoint of view Discussed with ASAD mag , phosphorus and potassium supplement as needed Monitor electrolytes Continue per consultants Subjective ROS Limited/Unobtainable: Yes Objective Objective Last 24 Hour Vital Signs Date Time Temp Pulse Resp B/P (MAP) Pulse Ox O2 Delivery O2 Flow Rate FiO2 05/17/20 11:00 97 21 93/52 99 Mechanical Ventilator 40 05/17/20 11:00 20 93/52 Endotracheal Tube 40 05/17/20 10:36 86 20 40 05/17/20 10:30 89 21 84/58 100 Mechanical Ventilator 40 05/17/20 10:00 91 22 94/61 100 Mechanical Ventilator 40 05/17/20 10:00 22 94/61 Endotracheal Tube 40 05/17/20 09:30 86 25 93/54 99 Mechanical Ventilator 40 05/17/20 09:00 91 24 90/59 99 Mechanical Ventilator 40 05/17/20 09:00 21 90/59 Endotracheal Tube 40 05/17/20 08:39 95 27 40 05/17/20 08:30 101 26 123/82 100 Mechanical Ventilator 45 05/17/20 08:07 115 05/17/20 08:07 112 135/89 05/17/20 08:06 29 143/84 Endotracheal Tube 45 05/17/20 08:00 45 05/17/20 08:00 Endotracheal Tube 05/17/20 08:00 98.6 112 28 143/84 99 Mechanical Ventilator 45 05/17/20 07:45 117 05/17/20 07:10 125 31 45 05/17/20 07:00 115 30 144/118 99 Mechanical Ventilator 45 05/17/20 07:00 30 144/118 Mechanical Ventilator 45 05/17/20 06:30 110 30 149/82 100 Mechanical Ventilator 45 05/17/20 06:30 110 30 05/17/20 06:00 109 27 139/79 96 Mechanical Ventilator 45 05/17/20 06:00 27 139/79 Mechanical Ventilator 45 05/17/20 05:30 101 23 112/66 94 Mechanical Ventilator 45 05/17/20 05:30 94 33 45 05/17/20 05:00 102 24 131/92 99 Mechanical Ventilator 45 05/17/20 05:00 24 131/92 Mechanical Ventilator 45 05/17/20 04:30 118 29 121/99 97 Mechanical Ventilator 45 05/17/20 04:00 Endotracheal Tube 05/17/20 04:00 111 05/17/20 04:00 27 135/90 Mechanical Ventilator 45 05/17/20 04:00 99.1 111 27 139/90 98 Mechanical Ventilator 45 05/17/20 04:00 45 05/17/20 03:30 101 25 104/88 99 Mechanical Ventilator 45 05/17/20 03:00 102 24 120/70 100 Mechanical Ventilator 45 05/17/20 03:00 23 120/70 Mechanical Ventilator 45 8/3/20 02:56 101 26 45 8/3/20 02:30 98 26 140/110 99 Mechanical Ventilator 45 8/3/20 02:21 24 133/74 Mechanical Ventilator 45 8/320 02:00 23 154/95 Mechanical Ventilator 45 8/20 02:00 111 30 154/95 98 Mechanical Ventilator 45 8/3/20 01:30 108 26 142/82 99 Mechanical Ventilator 45 8/320 01:25 102 27 45 8/320 01:00 24 128/88 Mechanical Ventilator 45 8 01:00 109 28 128/88 98 Mechanical Ventilator 45 05/17/20 00:30 106 25 136/83 100 Mechanical Ventilator 45 05/17/20 00:00 107 05/17/20 00:00 Endotracheal Tube 05/17/20 00:00 99.4 112 25 125/70 98 Mechanical Ventilator 45 05/17/20 00:00 25 125/70 Mechanical Ventilator 45 05/17/20 00:00 Endotracheal Tube 2 23:30 103 25 117/85 99 Mechanical Ventilator 45 05/16/20 23:10 95 24 45 220 23:00 27 148/75 Mechanical Ventilator 45 20 23:00 104 28 148/75 100 Mechanical Ventilator 45 2/20 22:30 109 26 138/81 100 Mechanical Ventilator 45 2/20 22:00 24 136/103 Mechanical Ventilator 45 8/2/20 22:00 113 28 136/103 100 Mechanical Ventilator 45 220 21:39 114 27 45 /2/20 21:30 110 25 142/78 99 Mechanical Ventilator 45 8/2/20 21:00 113 29 122/95 100 Mechanical Ventilator 45 8/2/20 21:00 32 122/95 Mechanical Ventilator 45 8/2/20 20:30 108 27 135/105 100 Mechanical Ventilator 45 8/2/20 20:15 94 116/67 8/2/20 20:00 45 8/2/20 20:00 Endotracheal Tube 8/2/20 20:00 96 8/2/20 20:00 98.7 92 20 116/67 100 Mechanical Ventilator 45 8/2/20 20:00 21 116/67 Mechanical Ventilator 45 8/2/20 19:44 99 23 45 8/2/20 19:30 99 24 102/62 100 Mechanical Ventilator 60 8/2/20 19:12 98.8 05/16/20 19:00 102 26 108/81 100 Mechanical Ventilator 60 05/16/20 19:00 26 129/95 Mechanical Ventilator 60 05/16/20 18:15 115 25 175/91 98 Mechanical Ventilator 60 05/16/20 18:00 111 26 160/89 98 Mechanical Ventilator 60 05/16/20 17:15 117 25 164/138 99 Mechanical Ventilator 60 05/16/20 17:00 120 27 142/87 93 Mechanical Ventilator 60 05/16/20 16:53 102 27 45 05/16/20 16:15 94 19 143/81 99 Mechanical Ventilator 60 05/16/20 16:00 98 05/16/20 16:00 98.9 95 19 125/53 99 Mechanical Ventilator 60 05/16/20 16:00 60 05/16/20 16:00 Endotracheal Tube 05/16/20 15:30 103 25 108/78 99 Mechanical Ventilator 60 05/16/20 15:15 99 25 126/81 100 Mechanical Ventilator 60 05/16/20 15:00 105 22 45 05/16/20 15:00 94 25 112/84 100 Mechanical Ventilator 60 05/16/20 15:00 60 05/16/20 13:45 91 19 121/72 99 Mechanical Ventilator 60 05/16/20 13:30 89 24 109/64 100 Mechanical Ventilator 60 05/16/20 13:15 94 21 100/67 100 Mechanical Ventilator 60 05/16/20 13:02 103 26 45 05/16/20 13:00 21 100/67 Mechanical Ventilator 05/16/20 13:00 96 21 117/63 99 Mechanical Ventilator 60 05/16/20 12:45 98 25 129/74 99 Mechanical Ventilator 60 05/16/20 12:30 110 30 127/71 95 Mechanical Ventilator 60 05/16/20 12:15 93 20 92/65 100 Mechanical Ventilator 60 05/16/20 12:00 98.6 96 23 106/60 99 Mechanical Ventilator 60 05/16/20 12:00 60 05/16/20 12:00 21 92/65 Mechanical Ventilator 05/16/20 12:00 Endotracheal Tube 05/16/20 12:00 95 Intake and Output 05/16/20 05/17/20 19:00 07:00 Intake Total 940 ml 1127.25 ml Output Total 1090 ml 2230 ml Balance -150 ml -1102.75 ml IV Total 280 ml 227.25 ml Tube Feeding 660 ml 780 ml Other 120 ml Output Urine Total 1090 ml 2230 ml # Bowel Movements 5 Laboratory Tests 05/17/20 04:42: White Blood Count 12.9H, Red Blood Count 3.40L, Hemoglobin 10.5L, Hematocrit 32.8L, Mean Corpuscular Volume 97, Mean Corpuscular Hemoglobin 30.9, Mean Corpuscular Hemoglobin Concent 32.0, Red Cell Distribution Width 14.0, Platelet Count 265, Mean Platelet Volume 9.7, Neutrophils (%) (Auto) 71.9, Lymphocytes (% ) (Auto) 15.0L, Monocytes (%) (Auto) 10.5H, Eosinophils (%) (Auto) 1.8, Basophils (%) (Auto) 0.9, Sodium Level 144, Potassium Level 3.3L, Chloride Level 103, Carbon Dioxide Level 39H, Anion Gap 2L, Blood Urea Nitrogen 30H, Creatinine 1.0, Estimat Glomerular Filtration Rate > 60, Glucose Level 114H, Calcium Level 8.9, Phosphorus Level 3.3, Magnesium Level 2.1, Total Bilirubin 0.6, Aspartate Amino Transf (AST/SGOT) 23, Alanine Aminotransferase (ALT/SGPT) 26, Alkaline Phosphatase 60, Total Protein 6.3L, Albumin 1.9L, Globulin 4.4, Albumin/Globulin Ratio 0.4L 05/17/20 07:08: Arterial Blood pH 7.430, Arterial Blood Partial Pressure CO2 57.5*H, Arterial Blood Partial Pressure O2 77.9, Arterial Blood HCO3 37.3H, Arterial Blood Oxygen Saturation 93.9L, Arterial Blood Base Excess 11.3*H, Nicolas Test Positive Height (Feet): 5 Height (Inches): 8.00 Weight (Pounds): 142 General Appearance: no apparent distress, lethargic EENT: other Cardiovascular: tachycardia Respiratory/Chest: decreased breath sounds - Trach to vent Abdomen: distended Objective No change Kin Bustillo MD May 17, 2020 11:59
[2020-05-17] MEDS ORDERED: Sterile Water Irrig 1000ml IRRIG ONE ×2 (15:05→18:42)
[2020-05-17] MEDS ORDERED: NS 275ml ONE ×3 (15:05→18:42)
[2020-05-17] MEDS ORDERED: Tubing IV Secondary IV ONE ×2 (16:37→17:18)
--- NOTE | 2020-05-17 19:17 | Internal Med Progress Note ---
Subjective Date of Service: May 17, 2020 Physician Name Obey Cisneros Attending Physician Maryk Go MD Current Medications Medications (Trade) Dose Ordered Sig/Damion Route PRN Reason Start Time Stop Time Status Last Admin Dose Admin Acetaminophen (Tylenol) 650 mg Q4H PRN GT fever 05/02/20 12:45 06/01/20 12:44 05/16/20 18:42 Amikacin Protocol (Amikacin pharmacy to dose) 1 ea DAILY PRN MISC Per rx protocol 05/12/20 16:15 06/11/20 16:14 Amikacin Sulfate 1000 mg/Sodium Chloride 114 ml @ 114 mls/hr Q36H IV 05/14/20 06:00 05/21/20 05:59 05/17/20 05:17 Aspirin (ASA) 81 mg DAILY GT 05/05/20 09:00 06/19/20 08:59 05/17/20 08:07 Chlorhexidine Gluconate (Marci-Hex 2%) 1 applic DAILY@2000 TOPIC 05/03/20 20:00 08/01/20 19:59 05/16/20 20:12 Colistimethate Sodium (Colistin *inhalation use only*) 150 mg Q12HRT INH 05/17/20 22:00 05/24/20 21:59 Digoxin (Lanoxin) 0.125 mg DAILY GT 05/14/20 09:00 08/12/20 08:59 05/17/20 08:07 Docusate Sodium (Colace) 100 mg EVERY 12 HOURS GT 05/10/20 21:00 06/09/20 20:59 05/17/20 08:06 Fentanyl Citrate 250 ml @ 0 mls/hr Q24H IV 05/03/20 22:03 08/01/20 22:02 05/17/20 02:21 Furosemide (Lasix) 40 mg EVERY 12 HOURS IV 05/10/20 09:00 06/09/20 08:59 05/16/20 20:13 Heparin Sodium (Porcine) (Heparin 5000 units/ml) 5,000 units EVERY 12 HOURS SUBQ 05/02/20 21:00 06/16/20 20:59 05/17/20 08:08 Levetiracetam (Keppra) 700 mg Q12HR GT 05/02/20 21:00 06/01/20 20:59 05/17/20 08:06 Metoclopramide HCl (Reglan) 5 mg EVERY 6 HOURS GT 05/13/20 12:00 06/12/20 11:59 05/17/20 05:17 Metoprolol Tartrate (Lopressor) 25 mg Q12HR GT 05/10/20 21:00 08/08/20 08:59 05/17/20 08:07 Micafungin Sodium 100 mg/Sodium Chloride 110 ml @ 110 mls/hr Q24H IVPB 05/11/20 12:00 05/18/20 11:59 05/17/20 11:35 Midodrine (Pro-Amatine) 10 mg Q8HR GT 05/04/20 22:00 08/02/20 21:59 05/17/20 05:17 Ondansetron HCl (Zofran) 4 mg Q6H PRN IVP Nausea & Vomiting 05/02/20 12:45 06/01/20 12:44 Pantoprazole (Protonix) 40 mg DAILY IVP 05/10/20 09:00 06/09/20 08:59 05/17/20 08:08 Polyethylene Glycol (Miralax) 17 gm DAILYPRN PRN GT Constipation 05/02/20 12:45 06/01/20 12:44 Potassium Chloride (K-Dur) 40 meq TWICE A DAY GT 05/12/20 18:00 08/10/20 17:59 05/17/20 17:33 Allergies: Coded Allergies: DIPHENHYDRAMINE (Verified Allergy, Unknown, 02/27/20) ROS Limited/Unobtainable: Yes Subjective 59 YO M admitted with respiratory failure. Now pneumonia. Intubated and sedated. Cover for Int Far[facility]-Dr Go. ICU Objective Last Vital Signs Date Time Temp Pulse Resp B/P (MAP) Pulse Ox O2 Delivery O2 Flow Rate FiO2 05/17/20 19:00 116 2 152/92 100 Mechanical Ventilator 40 05/17/20 16:00 98.8 05/15/20 22:00 60.0 Laboratory Tests Test 05/17/20 04:42 05/17/20 07:08 White Blood Count 12.9 K/UL (4.8-10.8) H Red Blood Count 3.40 M/UL (4.70-6.10) L Hemoglobin 10.5 G/DL (14.2-18.0) L Hematocrit 32.8 % (42.0-52.0) L Mean Corpuscular Volume 97 FL (80-99) Mean Corpuscular Hemoglobin 30.9 PG (27.0-31.0) Mean Corpuscular Hemoglobin Concent 32.0 G/DL (32.0-36.0) Red Cell Distribution Width 14.0 % (11.6-14.8) Platelet Count 265 K/UL (150-450) Mean Platelet Volume 9.7 FL (6.5-10.1) Neutrophils (%) (Auto) 71.9 % (45.0-75.0) Lymphocytes (%) (Auto) 15.0 % (20.0-45.0) L Monocytes (%) (Auto) 10.5 % (1.0-10.0) H Eosinophils (%) (Auto) 1.8 % (0.0-3.0) Basophils (%) (Auto) 0.9 % (0.0-2.0) Sodium Level 144 MMOL/L (136-145) Potassium Level 3.3 MMOL/L (3.5-5.1) L Chloride Level 103 MMOL/L (98-107) Carbon Dioxide Level 39 MMOL/L (21-32) H Anion Gap 2 mmol/L (5-15) L Blood Urea Nitrogen 30 mg/dL (7-18) H Creatinine 1.0 MG/DL (0.55-1.30) Estimat Glomerular Filtration Rate > 60 mL/min (>60) Glucose Level 114 MG/DL (74-106) H Calcium Level 8.9 MG/DL (8.5-10.1) Phosphorus Level 3.3 MG/DL (2.5-4.9) Magnesium Level 2.1 MG/DL (1.8-2.4) Total Bilirubin 0.6 MG/DL (0.2-1.0) Aspartate Amino Transf (AST/SGOT) 23 U/L (15-37) Alanine Aminotransferase (ALT/SGPT) 26 U/L (12-78) Alkaline Phosphatase 60 U/L (46-116) Total Protein 6.3 G/DL (6.4-8.2) L Albumin 1.9 G/DL (3.4-5.0) L Globulin 4.4 g/dL Albumin/Globulin Ratio 0.4 (1.0-2.7) L Arterial Blood pH 7.430 (7.350-7.450) Arterial Blood Partial Pressure CO2 57.5 mmHg (35.0-45.0) *H Arterial Blood Partial Pressure O2 77.9 mmHg (75.0-100.0) Arterial Blood HCO3 37.3 mmol/L (22.0-26.0) H Arterial Blood Oxygen Saturation 93.9 % (95-100) L Arterial Blood Base Excess 11.3 (-2-2) *H Nicolas Test Positive Intake and Output 05/16/20 05/17/20 19:00 07:00 Intake Total 940 ml 1127.25 ml Output Total 1090 ml 2230 ml Balance -150 ml -1102.75 ml IV Total 280 ml 227.25 ml Tube Feeding 660 ml 780 ml Other 120 ml Output Urine Total 1090 ml 2230 ml # Bowel Movements 5 Objective PHYSICAL EXAMINATION: GENERAL: The patient is a thin-appearing male, in severe respiratory distress. HEENT: Eyes, pupils equal and responsive to light and accommodation. Extraocular movements are intact. NECK: Supple. No lymphadenopathy. CHEST: Mech Vent; Decreased breath sounds bilaterally without rales. CARDIOVASCULAR: Tachycardic, regular rhythm. S1 and S2 are normal without murmurs, rubs, or gallops. ABDOMEN: Soft, nontender, and nondistended. Positive bowel sounds. No evidence of hepatosplenomegaly. Currently, no rebound or guarding noted. EXTREMITIES: Negative for clubbing, cyanosis, or edema. RECTAL/GENITAL: Not performed. NEUROLOGICAL: Unable to assess Assessment/Plan Assessment/Plan ASSESSMENT: This is a 59-year-old male. 1. Shortness of breath. 2. Hypoxia. 3. Right lower lobe pneumonia=enterobacter, pseudamonas, and staph aureus 4. Acute respiratory failure. 5. History of cerebrovascular accident. 6. Seizure disorder. 7. Functional quadriplegia. 8. Schizophrenia. 9. Dysphagia. 10. Urinary tract infection=proteus mirabilis 11. Sinus Tachycardia 12.Inceased tube feed residuals TREATMENT: 1. Respiratory failure/pneumonia. Intubated; A pulmonary consultation has been obtained with Dr. Ana Maria Hansen. Antibiotics= meropenem, amikacin and mycofungin. ID=Dr Stokes 2. Seizure disorder. Continue Ladarius Williamson as above. 3. Functional quadriplegia. 4. Schizophrenia. Continue Risperdal as above. 5. Dysphagia. The patient is status post PEG. 6. Cardiology=Dr Diaz 7. GI=Obey Stahl MD May 17, 2020 19:17
[2020-05-17] MEDS: Dyna-Hex 2% Top Sol 2oz TOPIC SCH (20:00)
[2020-05-17] MEDS ORDERED: LORazepam Inj 2mg/ml 1ml IV SCH (21:00)
[2020-05-17] MEDS ORDERED: Colistin for inhalation INH SCH (22:00)
--- NOTE | 2020-05-23 12:11 | Discharge Summary ---
Discharge Summary Discharge Summary _ DATE OF ADMISSION: 05/02/2020 DATE OF DISCHARGE: 05/17/2020 ADMITTING MD: Dr. Marky Go CONSULTANTS: Dr. Kin Liu [facility]: The patient is a 59-year-old male, who presented to ED due to complaints of shortness of breath. The patient is a resident of [facility]. The patient had acute shortness of breath. He was noted to have decreased oxygen saturation. He was admitted in February 2020 due to shortness of breath and fever, with respiratory failure requiring nonrebreather mask. At that time was negative for COVID-19. He was found to have ESBL Klebsiella pneumonia bacteremia. Patient was taken to ED for further evaluation. He has medical history significant for CVA, seizure disorder, functional quadriplegia, schizophrenia, dysphagia status post PEG. Upon evaluation at the ED, patient was on 15 L mask on arrival to ED. Patient was ill-appearing and was saturating 80% on room air. Patient was febrile at 103.1 temperature. Blood pressure 84/40, heart rate 170. He was saturating 94 % on 15 L nonrebreather mask. Patient had significant respiratory distress and was intubated at ED for airway control. Central line was inserted to the right IJ. Chest x-ray showed central line terminates in SVC, no evidence of pneumothorax. ET tube appropriately in place. Chest x-ray showed right lower lung pneumonia. Patient was given cefepime and Rocephin. Patient was pancultured. Patient was then admitted for evaluation of acute respiratory failure and sepsis. Patient was admitted to ICU. He was placed on isolation. Rapid COVID-19 test was negative. He continued to be hypotensive and was started on IV pressors. Patient was started empirically on vancomycin, amikacin and meropenem. He was placed on seizure precautions and was continued on Keppra and Depakote. He was given Risperdal for schizophrenia. He was placed on heparin for DVT prophylaxis. On 05/03/2020, patient was noted to have low tidal volumes and there was concern for cuff leak. Endotracheal tube was replaced. Patient had severe electrolyte abnormalities with low magnesium, low phosphorus and low potassium. Electrolytes were repleted. Sputum culture showed growth of Pseudomonas, Enterobacter and staph aureus. Blood culture did not isolate any growth. Urine culture showed growth of ESBL Proteus. Patient was given meropenem and IV vancomycin. Amikacin was discontinued. Patient remained tachycardic at the rate of 150s. IV digoxin was given. Echocardiogram showed ejection fraction of 55%. He was eventually started on low-dose beta-berhane. He also had metabolic acidosis and was given sodium bicarb. Tube feeding was placed on hold. Patient was having high residual. IV Reglan was given. Stat KUB showed nonspecific bowel gas pattern with relative paucity of bowel gas. High residual was caused by constipation. He was given lactulose and MiraLAX. He also had a drop in hemoglobin. G-tube lavage did not show any evidence of bleeding in the stomach. He was continued on PPI. He was eventually taken off pressors. He was given midodrine he continued to be febrile with fever curve improved but ongoing. Repeat blood culture did not isolate any growth. COVID-19 was negative x2. He was continued on isolation as patient was still having fever. Blood pressure was in the low range. He was put back on IV pressors. D-dimer was 4.83. Venous duplex did not show any evidence of deep venous thrombosis. Temperature was as high as 105. He was given cooling measures. He was started empirically on micafungin and amikacin. He was eventually taken off IV pressors. Leukocytosis was downtrending. Patient was transferred to [facility]. FINAL DIAGNOSES: Acute hypoxemic respiratory failure requiring intubation Sepsis with septic shock Pneumonia with Enterobacter, Pseudomonas and staph aureus COVID-19 ruled out Dehydration UTI with Proteus COPD Acute kidney injury resolved Seizure disorder History of CVA Functional quadriplegia Dysphagia with G-tube feeding tube Increased G-tube received was secondary to constipation Dementia Hypokalemia Hypomagnesemia Low phosphorus Dehydration Iron deficiency anemia Sinus tachycardia Transient atrial fibrillation DISPOSITION: Patient was transferred to [facility]. I have been assigned to complete a discharge summary on this account, I was not involved with the patient's management.--SUBHA Arellano Jacqueline Robles NP May 23, 2020 12:11
== END 2020-05-17 21:20 | DRG 870 ==
LOC: EDBD 09:04 → EMR 09:36 → ICU 09:42 → EDBEDREQ 10:26 → ICU 14:18
PROC: 5A1955Z Respiratory Ventilation, Greater than 96 Consecutive Hours (ICD-10-PCS; principal; 2020-05-02)
PROC: 05HM33Z Insertion of Infusion Device into Right Internal Jugular Vein, Percutaneous Approach (ICD-10-PCS; principal; 2020-05-02)
PROC: 0BH17EZ Insertion of Endotracheal Airway into Trachea, Via Natural or Artificial Opening (ICD-10-PCS; principal; 2020-05-02)
DX: A41.9 Sepsis, unspecified organism (principal); R65.21 Severe sepsis with septic shock; R53.2 Functional quadriplegia; J96.01 Acute respiratory failure with hypoxia; J15.6 Pneumonia due to other Gram-negative bacteria; J15.1 Pneumonia due to Pseudomonas; J15.211 Pneumonia due to Methicillin susceptible Staphylococcus aureus; N39.0 Urinary tract infection, site not specified; Z43.1 Encounter for attention to gastrostomy; Z16.24 Resistance to multiple antibiotics; R13.10 Dysphagia, unspecified; Y95 Nosocomial condition; Z88.8 Allergy status to other drugs, medicaments and biological substances; G40.909 Epilepsy, unspecified, not intractable, without status epilepticus; M62.59 Muscle wasting and atrophy, not elsewhere classified, multiple sites; R00.0 Tachycardia, unspecified; F20.9 Schizophrenia, unspecified; E86.0 Dehydration; B96.4 Proteus (mirabilis) (morganii) as the cause of diseases classified elsewhere; E83.42 Hypomagnesemia; E83.39 Other disorders of phosphorus metabolism; E87.6 Hypokalemia; Z86.73 Personal history of transient ischemic attack (TIA), and cerebral infarction without residual deficits; D50.9 Iron deficiency anemia, unspecified; K59.00 Constipation, unspecified; I48.91 Unspecified atrial fibrillation; Z20.828 Contact with and (suspected) exposure to other viral communicable diseases; F03.90 Unspecified dementia, unspecified severity, without behavioral disturbance, psychotic disturbance, mood disturbance, and anxiety
CPT/HCPCS: 31500; 36415; 36600; 71045; 74018; 80053; 80061; 80150; 80162; 80164; 80202; 80299; 81003; 82248; 82553; 82607; 82728; 82746; 82803; 82962; 83036; 83540; 83550; 83605; 83690; 83735; 83880; 84100; 84443; 84484; 84550; 85007; 85025; 85379; 85610; 85651; 85730; 86140; 86850; 86900; 86901; 87040; 87070; 87081; 87086; 87181; 87205; 93005; 93306; 93970; 94002; 94003; 94664; 96365; 96366; 96368; 99291; J2765; J7030; J8499; U0002